=== PATIENT | male | born 1950 | race Caucasian/White ===

== ENCOUNTER 2016-09-17 04:21 | Emergency (ER) | payer OTHER ==
[2016-09-17 04:28] VITALS: RESP 18
[2016-09-17 04:49] LABS: Basophils % (A) 1 %; CH 27.7; CHCM 33.1; Eosinophils # (A) 0.3 k/uL (0-0.7); Eosinophils % (A) 4 %; HCT 45.6 % (39.0-53.0); HDW 2.48; HGB 14.8 gm/dL (13.0-17.5); Luc % (Auto) 1; Lymphocytes # (A) 1.4 k/uL (1.0-4.8); Lymphocytes % (A) 19 %; MCH 27.3 pg (25.0-35.0); MCHC 32.4 g/dL (31.0-37.0); MCV 84.2 fL (80.0-100.0); Mean Platelet Volume 6.6; Monocytes # (A) 0.5 k/uL (0-1.0); Monocytes % (A) 7 %; Neutrophils # (A) 5.3 k/uL (1.3-7.7); Neutrophils % (A) 69 %; RBC 5.41 m/uL (4.30-5.90); RDW 13.4 % (11.5-15.5); WBC 7.7 k/uL (3.8-10.6); WBC (Perox) 7.42
--- NOTE | 2016-09-17 04:51 | ED ---
Chest Pain HPI - General Chief Complaint: Chest Pain Stated Complaint: Anxiety Time Seen by Provider: 09/17/16 04:27 Source: EMS Mode of arrival: EMS Limitations: no limitations - History of Present Illness Initial Comments: This patient is a 66-year-old man who presents to be evaluated mainly for hypertension. The patient states that he had been sleeping tonight and woke with a feeling like he was short of breath and having palpitations. There was also a tight feeling across his chest. The patient states that after he had been up for a while the symptoms were improving but he noted that his blood pressure was elevated and he was anxious about that. He states that he has a history of a "brain bleed," and that he was told that if his blood pressure was elevated he should be seen in the emergency department. When the pressure did not come down he decided to be seen here. Complaint: chest pain Onset/Timin -: hour(s) Onset: awoke with symptoms Pain Location: substernal Pain Radiation: none Severity: mild Quality: tightness Consistency: constant Improves With: nothing Worsens With: nothing Other Symptoms: palpitations Treatments Prior to Arrival: none - Related Data Allergies Allergy/AdvReac Type Severity Reaction Status Date / Time No Known Allergies Allergy Verified 09/17/16 05:00 Review of Systems ROS Statement: Those systems with pertinent positive or pertinent negative responses have been documented in the HPI. ROS Other: All systems not noted in ROS Statement are negative. Constitutional: Denies: fever Respiratory: Reports: dyspnea. Denies: cough, hemoptysis Cardiovascular: Reports: chest pain, palpitations. 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 Absent: scleral icterus, conjunctival injection Neck exam: Present: normal inspection Respiratory exam: Present: normal lung sounds bilaterally. Absent: respiratory distress, wheezes, rales, rhonchi, stridor Cardiovascular Exam: Present: regular rate, normal rhythm, normal heart sounds. Absent: systolic murmur, diastolic murmur, rubs, gallop GI/Abdominal exam: Present: soft. Absent: distended, tenderness, guarding, rebound, mass Extremities exam: Present: normal inspection, normal capillary refill. Absent: pedal edema, calf tenderness Back exam: Present: normal inspection. Absent: CVA tenderness (R), CVA tenderness (L) Neurological exam: Present: alert Psychiatric exam: Present: anxious Skin exam: Present: warm, dry, intact, normal color. Absent: rash Course Vital Signs 09/17/16 09/17/16 09/17/16 04:23 05:00 05:30 Temperature 97.7 F Pulse Rate 79 82 74 Respiratory 18 18 18 Rate Blood Pressure 162/93 151/78 129/76 O2 Sat by Pulse 97 96 96 Oximetry 09/17/16 06:00 Temperature Pulse Rate 77 Respiratory 18 Rate Blood Pressure 119/70 O2 Sat by Pulse 96 Oximetry Chest Pain MDM - MDM The patient's clinical presentation was consistent with episode of sleep apnea. He states he has had previous sleep study and was given prescription to have a CPAP machine but has not purchased this yet. I did encourage patient to follow through with this. The patient's symptoms have resolved and he would like to go home. I did offer admission for further cardiac monitoring and repeat enzymes with the patient declines this, understand there is a small risk of missed MS. Should any of the symptoms recur the patient will return, other return parameters discussed. He will follow with his physician, calling this morning for appointment. Disposition Clinical Impression: Anxiety, Hypertension Disposition: HOME SELF-CARE Condition: Good Instructions: Chest Pain (ED), Hypertension (ED) Referrals: Fady Lemus DO [Primary Care Provider] - 1-2 days
[2016-09-17] MEDS ORDERED: LABETALOL 5 MG/ML VIAL MDV IVP STA (04:54)
[2016-09-17 04:58] LABS: Partial Thromboplastin Time 25.7 sec (22.0-30.0); Prothrombin Time 10.5 sec (9.0-12.0)
[2016-09-17 05:04] LABS: ALT 68 U/L (21-72); AST 38 U/L (17-59); Alkaline Phosphatase 151 U/L (38-126); Anion Gap 10 mmol/L; Blood Urea Nitrogen 22 mg/dL (9-20); Calcium 8.9 mg/dL (8.4-10.2); Carbon Dioxide 22 mmol/L (22-30); Chloride 109 mmol/L (98-107); Glucose 118 mg/dL (74-99); Non-African American GFR(MDRD) >60 (>60 ml/min/1.73 sqM); Potassium 4.2 mmol/L (3.5-5.1); Sodium 141 mmol/L (137-145); Total Bilirubin 0.6 mg/dL (0.2-1.3); Total Protein 7.1 g/dL (6.3-8.2)
--- NOTE | 2016-09-17 05:12 | XR ---
EXAM: XR Chest, 2 Views CLINICAL HISTORY: Reason: Chest Pain TECHNIQUE: Frontal and lateral views of the chest. COMPARISON: No relevant prior studies available. FINDINGS: Lungs: Low lung volumes. Suspect atelectasis. No edema or consolidation. Pleural space: Unremarkable. No pneumothorax. Cardiac and mediastinal silhouette accentuated by low lung volumes. Likely within normal limits allowing for poor inspiratory depth. IMPRESSION: Low lung volumes with suspected atelectasis.
[2016-09-17 05:14] LABS: Creatine Kinase 87 U/L (55-170)
[2016-09-17 05:27] LABS: Creatine Kinase MB 1.4 ng/mL (0.0-2.4); Troponin I <0.012 ng/mL (0.000-0.034)
[2016-09-17 06:01] VITALS: BP 119/70; PULSE 77
[2016-09-17 06:18] VITALS: TEMP 98.2
== END 2016-09-17 06:18 | disposition home or self-care (01) ==
LOC: EC 04:21
DX: I10 Essential (primary) hypertension (principal); F41.9 Anxiety disorder, unspecified; R07.9 Chest pain, unspecified
CPT/HCPCS: 36415; 71020; 80053; 82550; 82553; 83735; 83880; 84484; 85025; 85610; 85730; 93005; 96374; 99285

== ENCOUNTER 2020-01-09 17:32 | Inpatient (IN) | payer MEDICARE, OTHER ==
--- NOTE | 2020-01-09 18:12 | ED ---
General Adult HPI - General Chief complaint: Fever Stated complaint: fever,chills,sob,weak Time Seen by Provider: 01/09/20 17:51 Source: patient Mode of arrival: ambulatory Limitations: no limitations - History of Present Illness Initial comments: Dictation was produced using [employer] dictation software. please excuse any grammatical, word or spelling errors. This patient was cared for during a federal and state declared state of emergency secondary to Covid 19 Chief Complaint: 69-year-old male with past medical history of stroke and pneumothorax presents with sore throat, fever and dyspnea. History of Present Illness: Patient is a 69-year-old male. He states for the last 3 days he's been having worsening shortness of breath, fever and sore throat. Patient went to the urgent care today and was redirected to the emergency department. He was told to come here because he apparently was hypoxic. Patient states that he perhaps was exposed to be with coronavirus at one of his friends businesses. He is been around a handful of people that have not been wearing masks. Patient has a history of asthma or COPD. He is not a c urrent smoker. He sometimes cough. States his cough is nonproductive. Still has the ability to taste food and smell. The ROS documented in this emergency department record has been reviewed and c onfirmed by me. Those systems with pertinent positive or negative responses have been documented in the HPI. All other systems are other negative and/or noncontributory. PHYSICAL EXAM: General Impression: Alert and oriented x3, not in acute distress HEENT: Normocephalic atraumatic, extra-ocular movements intact, pupils equal and reactive to light bilaterally, mucous membranes moist, no erythema to the posterior oropharynx, no tonsillar lesions Cardiovascular: Heart regular rate and rhythm Chest: Able to complete full sentences, no retractions, no tachypnea, lungs clear to auscultation bilaterally Abdomen: abdomen soft, non-tender, non-distended, no organomegaly Musculoskeletal: Pulses present and equal in all extremities, no peripheral edema Motor: no focal deficits noted Neurological: CN II-XII grossly intact, no focal motor or sensory deficits noted Skin: Intact with no visualized rashes Psych: Normal affect and mood ED course: 69-year-old male presents with sore throat, constitutional symptoms and dyspnea signs upon arrival shows temperature 100.4, rest of vital signs within acceptable limits. Patient does not appear to be any respiratory distress at the moment. Patient is not tachycardic nor hypoxic. He does have a low-grade temperature. Seems to have symptoms that would suggest pulmonary or upper respiratory infection. No leukocytosis. Coag panel is unremarkable. Metabolic panel is otherwise unremarkable. No elevated renal markers. Troponin is elevated 0.189. Group A strep is negative. Chest x-ray is nonacute. Highly doubt that patient's symptomatology suggest pulmonary embolus. He is not tachycardic and not hypoxic. He does not have pleuritic chest symptoms. Short of breath and has elevated troponin. CT angios the chest is ordered.CT angios the chest was obtained given that patient has elevated troponin, and respiratory symptoms. His concern for pulmonary embolus. CT angioma shows density within the mediastinum and its indeterminate concerning for mediastinitis, aortitis or vasculitis. Infectious disease will be consulted given the concerning finding seen on CT angios the chest. Patient started on broad spectrum antibiotics. EKG interpretation: Ventricular rate 86, normal sinus rhythm, IN interval 200, QRS 94, QTC 445. No IN prolongation, no QTC prolongation, no ST or T-wave changes noted. Overall, this EKG is unremarkable - Related Data Home Medications Medication Instructions Recorded Confirmed Atorvastatin [Lipitor] 40 mg PO HS 01/09/20 01/09/20 FLUoxetine HCL [PROzac] 40 mg PO DAILY 01/09/20 01/09/20 Gabapentin [Neurontin] 400 mg PO TID 01/09/20 01/09/20 clonazePAM [KlonoPIN] 1 mg PO BID 01/09/20 01/09/20 hydrOXYzine pamoate [Vistaril] 50 mg PO TID 01/09/20 01/09/20 lisinopriL [Zestril] 5 mg PO DAILY 01/09/20 01/09/20 Allergies Allergy/AdvReac Type Severity Reaction Status Date / Time No Known Allergies Allergy Verified 01/09/20 20:03 Review of Systems ROS Statement: Those systems with pertinent positive or pertinent negative responses have been documented in the HPI. ROS Other: All systems not noted in ROS Statement are negative. 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 History of Any Multi-Drug Resistant Organisms: None Reported Additional Past Surgical History / Comment(s): ACL replacement Past Psychological History: Anxiety, Depression Smoking Status: Never smoker Past Alcohol Use History: None Reported Past Drug Use History: None Reported General Exam Limitations: no limitations Course Vital Signs 01/09/20 01/09/20 17:53 18:22 Temperature 100.4 F H Pulse Rate 97 90 Respiratory 16 16 Rate Blood Pressure 137/79 119/73 O2 Sat by Pulse 97 95 Oximetry Medical Decision Making - Lab Data Result diagrams: 01/09/20 18:08 01/09/20 18:08 Lab Results 01/09/20 01/09/20 01/09/20 Range/Units 18:08 18:08 18:08 WBC 4.5 (3.8-10.6) k/uL RBC 3.98 L (4.30-5.90) m/uL Hgb 12.0 L (13.0-17.5) gm/dL Hct 36.9 L (39.0-53.0) % MCV 92.7 (80.0-100.0) fL MCH 30.2 (25.0-35.0) pg MCHC 32.5 (31.0-37.0) g/dL RDW 13.7 (11.5-15.5) % Plt Count 234 (150-450) k/uL Neutrophils % (Manual) 53 % Lymphocytes % (Manual) 41 % Monocytes % (Manual) 6 % Neutrophils # (Manual) 2.39 (1.3-7.7) k/uL Lymphocytes # (Manual) 1.85 (1.0-4.8) k/uL Monocytes # (Manual) 0.27 (0-1.0) k/uL Nucleated RBCs 0 (0-0) /100 WBC Manual Slide Review Performed RBC Morphology Normal PT 10.4 (9.0-12.0) sec INR 1.0 (<1.2) APTT 28.5 (22.0-30.0) sec Sodium 135 L (137-145) mmol/L Potassium 4.3 (3.5-5.1) mmol/L Chloride 102 (98-107) mmol/L Carbon Dioxide 26 (22-30) mmol/L Anion Gap 7 mmol/L BUN 14 (9-20) mg/dL Creatinine 0.86 (0.66-1.25) mg/dL Est GFR (CKD-EPI)AfAm >90 (>60 ml/min/1.73 sqM) Est GFR (CKD-EPI)NonAf 90 (>60 ml/min/1.73 sqM) Glucose 104 H (74-99) mg/dL Plasma Lactic Acid [place] (0.7-2.0) mmol/L Calcium 8.7 (8.4-10.2) mg/dL Total Bilirubin 0.6 (0.2-1.3) mg/dL AST 25 (17-59) U/L ALT 23 (4-49) U/L Alkaline Phosphatase 108 (38-126) U/L Troponin I (0.000-0.034) ng/mL Total Protein 7.0 (6.3-8.2) g/dL Albumin 4.0 (3.5-5.0) g/dL Group A Strep Rapid (Negative) 01/09/20 01/09/20 01/09/20 Range/Units 18:08 18:08 18:44 WBC (3.8-10.6) k/uL RBC (4.30-5.90) m/uL Hgb (13.0-17.5) gm/dL Hct (39.0-53.0) % MCV (80.0-100.0) fL MCH (25.0-35.0) pg MCHC (31.0-37.0) g/dL RDW (11.5-15.5) % Plt Count (150-450) k/uL Neutrophils % (Manual) % Lymphocytes % (Manual) % Monocytes % (Manual) % Neutrophils # (Manual) (1.3-7.7) k/uL Lymphocytes # (Manual) (1.0-4.8) k/uL Monocytes # (Manual) (0-1.0) k/uL Nucleated RBCs (0-0) /100 WBC Manual Slide Review RBC Morphology PT (9.0-12.0) sec INR (<1.2) APTT (22.0-30.0) sec Sodium (137-145) mmol/L Potassium (3.5-5.1) mmol/L Chloride (98-107) mmol/L Carbon Dioxide (22-30) mmol/L Anion Gap mmol/L BUN (9-20) mg/dL Creatinine (0.66-1.25) mg/dL Est GFR (CKD-EPI)AfAm (>60 ml/min/1.73 sqM) Est GFR (CKD-EPI)NonAf (>60 ml/min/1.73 sqM) Glucose (74-99) mg/dL Plasma Lactic Acid [place] 0.8 (0.7-2.0) mmol/L Calcium (8.4-10.2) mg/dL Total Bilirubin (0.2-1.3) mg/dL AST (17-59) U/L ALT (4-49) U/L Alkaline Phosphatase (38-126) U/L Troponin I 0.189 H* (0.000-0.034) ng/mL Total Protein (6.3-8.2) g/dL Albumin (3.5-5.0) g/dL Group A Strep Rapid Negative (Negative) Disposition Clinical Impression: Dyspnea Disposition: ADMITTED IP TO THIS HOSP Condition: Fair Referrals: Fady Lemus DO [Primary Care Provider] - 1-2 days Decision Time: 20:45
[2020-01-09 18:36] LABS: Potassium 4.3 mmol/L (3.5-5.1)
[2020-01-09 18:37] LABS: ALT 23 U/L (4-49); AST 25 U/L (17-59); African American GFR (CKD) >90 (>60 ml/min/1.73 sqM); Alkaline Phosphatase 108 U/L (38-126); Anion Gap 7 mmol/L; Blood Urea Nitrogen 14 mg/dL (9-20); Calcium 8.7 mg/dL (8.4-10.2); Carbon Dioxide 26 mmol/L (22-30); Chloride 102 mmol/L (98-107); Glucose 104 mg/dL (74-99); Non-African American GFR(CKD) 90 (>60 ml/min/1.73 sqM); Sodium 135 mmol/L (137-145); Total Bilirubin 0.6 mg/dL (0.2-1.3)
[2020-01-09 18:42] LABS: HCT 36.9 % (39.0-53.0); MCH 30.2 pg (25.0-35.0); MCHC 32.5 g/dL (31.0-37.0); MCV 92.7 fL (80.0-100.0); Mean Platelet Volume 6.4; Platelet Count 234 k/uL (150-450); RBC 3.98 m/uL (4.30-5.90); RDW 13.7 % (11.5-15.5); WBC 4.5 k/uL (3.8-10.6)
[2020-01-09 18:46] LABS: Partial Thromboplastin Time 28.5 sec (22.0-30.0); Prothrombin Time 10.4 sec (9.0-12.0)
--- NOTE | 2020-01-09 19:02 | XR ---
EXAMINATION TYPE: XR chest 2V DATE OF EXAM: 01/09/2020 COMPARISON: Prior chest x-ray 09/17/2016 HISTORY: Fever and difficulty breathing, shortness of breath TECHNIQUE: Frontal and lateral views of the chest are obtained. FINDINGS: There is no focal air space opacity, pleural effusion, or pneumothorax seen. The cardiac silhouette size is within normal limits. The patient is rotated. The osseous structures are intact. IMPRESSION: No acute cardiopulmonary process.
[2020-01-09 19:14] LABS: Lymphocytes # (M) 1.85 k/uL (1.0-4.8); Monocytes # (M) 0.27 k/uL (0-1.0); Neutrophils # (M) 2.39 k/uL (1.3-7.7); Neutrophils % (M) 53 %; Nucleated Red Blood Cells 0 /100 WBC (0-0); Total Cells Counted 100
[2020-01-09] MEDS ORDERED: ACETAMINOPHEN TAB 500 MG TAB PO STA (19:25)
[2020-01-09] MEDS ORDERED: ASPIRIN 81 MG PO STA (19:35)
--- NOTE | 2020-01-09 20:39 | CT ---
EXAMINATION TYPE: CT angio chest DATE OF EXAM: 01/09/2020 COMPARISON: Chest x-ray same day HISTORY: PE suspected. Pt c/o SOB, fever for several days. Hx HTN, stroke. CT DLP: 333.7 mGycm Automated exposure control for dose reduction was used. CONTRAST: CTA scan of the thorax is performed with IV Contrast, patient injected with 100 mL of Isovue 370, pul monary embolism protocol. MIP images are created and reviewed. 3D reconstructed images are created on an independent workstation and reviewed. FINDINGS: LUNGS: The lungs are grossly clear, there is no concerning parenchymal mass or nodule identified. T here is no pneumothorax seen. The tracheobronchial tree is patent. Minimal basilar atelectatic stanley es are present greater on the left, there may be minimal effusion AORTA: No additional significant abnormality is seen. MEDIASTINUM: There is satisfactory enhancement of the pulmonary artery and its branches, there is no CT evidence for pulmonary embolism centrally, some limitations to exclude embolus in the segmental br anches. There is some increased attenuation present within the mediastinal fat about the aorta. Proxi mal descending aorta is dilated to 3.2 cm. There are no greater than 1 cm hilar or mediastinal lymph nodes. No pericardial effusion is seen. Pulmonary artery is prominent, correlate for possible pulmo nary artery hypertension OTHER: No additional significant abnormality is seen. IMPRESSION: INCREASED DENSITY WITHIN THE MEDIASTINUM IS INDETERMINATE, CORRELATE FOR POSSIBLE MEDIASTINITIS, AOR TITIS, VASCULITIS . 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 NO EVIDENT PULMONARY EMBOLISM WITH LIMITATI ONS DESCRIBED. CONSIDER PULMONARY ARTERY HYPERTENSION. ADDITIONAL FINDINGS ABOVE.
[2020-01-09] MEDS ORDERED: AMPICILLIN-SULBACTAM 3 GM in SODIUM CHLORIDE 0.9% 100 ML IVPB STA (20:43)
[2020-01-09] MEDS ORDERED: VANCOMYCIN IV PER PHARMACY 1 EACH MISC MISCELLANE PRN (20:43)
[2020-01-09] MEDS ORDERED: VANCOMYCIN 1,500 MG in SODIUM CHLORIDE 0.9% 250 ML IVPB ONE (22:00)
[2020-01-10 04:11] LABS: Cholesterol 115 mg/dL (<200); HDL Cholesterol 39 mg/dL (40-60); LDL Cholesterol,Calculated 65 mg/dL (0-99); Triglycerides 54 mg/dL (<150)
[2020-01-10] MEDS: ASPIRIN 325 MG TAB PO SCH (08:33)
--- NOTE | 2020-01-10 10:07 | P.CRDCN ---
History of Present Illness Consult date: 01/10/20 Chief complaint: Chest pain History of present illness: This is a very pleasant 69-year-old gentleman with a past medical history significant for hypertension and dyslipidemia presented emergency department complaining of chest discomfort. He was in his usual state about 2 weeks ago he started experiencing discomfort in the chest. He described the discomfort as a burning sensation in the middle of the chest without radiation to the arms or neck or shoulders and without associated symptoms of shortness of breath or sweating or dizziness or lightheadedness or syncope. The discomfort is clearly not exertional related. Because of that he decided to come to the emergency department. Please note that the chest discomfort is very pleuritic in nature and worse once he take a deep breath. Because of that he underwent a computed tomography scan of the chest and that revealed what it seems to be mid last tinnitus and vasculitis but no evidence of pulmonary embolism noted. No PE was noted on the computed tomography scan of the chest. The chest x-ray did not show any acute abnormalities. The EKG showed sinus rhythm without any sign ificant ST or T-wave abnormalities. The troponin came in to be slightly abnormal but seems to be flat across support. Please note that the patient has been experiencing also symptoms of fever. He got tested for COVID-19 and the test distal pending at this point. At this point, would consider conservative medical approach. We will obtain an echocardiogram was Doppler. Also I would get a sed rate. 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 History of Any Multi-Drug Resistant Organisms: None Reported Additional Past Surgical History / Comment(s): ACL replacement Past Psychological History: Anxiety, Depression Smoking Status: Former smoker Past Alcohol Use History: None Reported Additional Past Alcohol Use History / Comment(s): smoked a pack a day for 25 years Past Drug Use History: None Reported Medications and Allergies Home Medications Medication Instructions Recorded Confirmed Type Atorvastatin [Lipitor] 40 mg PO HS 01/09/20 01/09/20 History FLUoxetine HCL [PROzac] 40 mg PO DAILY 01/09/20 01/09/20 History Gabapentin [Neurontin] 400 mg PO TID 01/09/20 01/09/20 History clonazePAM [KlonoPIN] 1 mg PO BID 01/09/20 01/09/20 History hydrOXYzine pamoate [Vistaril] 50 mg PO TID 01/09/20 01/09/20 History lisinopriL [Zestril] 5 mg PO DAILY 01/09/20 01/09/20 History Allergies Allergy/AdvReac Type Severity Reaction Status Date / Time No Known Allergies Allergy Verified 01/09/20 20:03 Physical Exam Vitals: Vital Signs Temp Pulse Pulse Resp BP BP Pulse Ox 01/10/20 08:00 99.2 F 77 16 121/70 94 L 01/10/20 04:00 97.8 F 63 16 106/63 96 01/09/20 23:56 97.8 F 57 L 16 110/66 95 01/09/20 20:54 99 F 01/09/20 20:53 99.1 F 70 17 116/58 95 01/09/20 18:22 90 16 119/73 95 01/09/20 17:53 100.4 F H 97 16 137/79 97 Intake and Output 01/09/20 01/10/20 01/10/20 22:59 06:59 14:59 Output Total 400 Balance -400 Output: Urine 400 Other: Voiding Method Toilet # Voids 1 1 Weight 78.925 kg 80 kg - Constitutional General appearance: no acute distress - Respiratory Respiratory: bilateral: CTA - Cardiovascular Rhythm: regular Heart sounds: normal: S1, S2 Results 01/09/20 18:08 01/09/20 18:08 Cardiac Enzymes 01/09/20 01/09/20 01/09/20 Range/Units 18:08 18:08 20:56 AST 25 (17-59) U/L Troponin I 0.189 H* 0.170 H* (0.000-0.034) ng/mL 01/10/20 Range/Units 00:36 AST (17-59) U/L Troponin I 0.109 H* (0.000-0.034) ng/mL Coagulation 01/09/20 Range/Units 18:08 PT 10.4 (9.0-12.0) sec APTT 28.5 (22.0-30.0) sec Lipids 01/10/20 Range/Units 00:36 Triglycerides 54 (<150) mg/dL Cholesterol 115 (<200) mg/dL HDL Cholesterol 39 L (40-60) mg/dL CBC 01/09/20 Range/Units 18:08 WBC 4.5 (3.8-10.6) k/uL RBC 3.98 L (4.30-5.90) m/uL Hgb 12.0 L (13.0-17.5) gm/dL Hct 36.9 L (39.0-53.0) % Plt Count 234 (150-450) k/uL Comprehensive Metabolic Panel 01/09/20 Range/Units 18:08 Sodium 135 L (137-145) mmol/L Potassium 4.3 (3.5-5.1) mmol/L Chloride 102 (98-107) mmol/L Carbon Dioxide 26 (22-30) mmol/L BUN 14 (9-20) mg/dL Creatinine 0.86 (0.66-1.25) mg/dL Glucose 104 H (74-99) mg/dL Calcium 8.7 (8.4-10.2) mg/dL AST 25 (17-59) U/L ALT 23 (4-49) U/L Alkaline Phosphatase 108 (38-126) U/L Total Protein 7.0 (6.3-8.2) g/dL Albumin 4.0 (3.5-5.0) g/dL Current Medications Generic Name Dose Route Start Last Admin Trade Name Freq PRN Reason Stop Dose Admin Aspirin 325 mg 01/10/20 09:00 01/10/20 08:33 Aspirin 325 Mg Tab PO 325 mg DAILY RAMEZ Administration Vancomycin HCl 1,500 mg/ 250 mls @ 125 mls/hr 01/10/20 12:00 Sodium Chloride IVPB Q12H RAMEZ Intake and Output 01/09/20 01/10/20 01/10/20 22:59 06:59 14:59 Output Total 400 Balance -400 Output: Urine 400 Other: Voiding Method Toilet # Voids 1 1 Weight 78.925 kg 80 kg 01/09/20 18:08 01/09/20 18:08 Assessment and Plan Assessment: Assessment #1 atypical/pleuritic chest discomfort #2 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
[2020-01-10] MEDS ORDERED: VANCOMYCIN IV PER PHARMACY 1 EACH MISC MISCELLANE PRN (10:56)
--- NOTE | 2020-01-10 11:06 | P.HPIM ---
History of Present Illness 59-year-old pleasant male came in with the complaints of for fever chills sore throat body aches going on for about last 3 days. Patient was also complaining of some cough without any significant sputum production. Patient was also complaining of chest pain which appears to be pleuritic and I did have mildly elevated cardiac enzymes because of which radiologist was consulted. Cardiology evaluated the patient and patient chest pain is noncardiac in nature. 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 Patient was given broad-spectrum antibiotics subsequently admitted with consistent infectious disease and cardiology. Review of Systems REVIEW OF SYSTEMS: CONSTITUTIONAL: as mentioned in HPI HEENT: No recent visual problems or hearing problems. Denied any sore throat. CARDIOVASCULAR: No orthopnea, PND, no palpitations, no syncope. PULMONARY: No shortness of breath, no cough, no hemoptysis. GASTROINTESTINAL: No diarrhea, no nausea, no vomiting, no abdominal pain. NEUROLOGICAL: No headaches, no weakness, no numbness. HEMATOLOGICAL: Denies any bleeding or petechiae. GENITOURINARY: Denies any burning micturition, frequency, or urgency. MUSCULOSKELETAL/RHEUMATOLOGICAL: Denies any joint pain, swelling, or any muscle pain. ENDOCRINE: Denies any polyuria or polydipsia. The rest of the 14-point review of systems is negative. 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 History of Any Multi-Drug Resistant Organisms: None Reported Additional Past Surgical History / Comment(s): ACL replacement Past Psychological History: Anxiety, Depression Smoking Status: Former smoker Past Alcohol Use History: None Reported Additional Past Alcohol Use History / Comment(s): smoked a pack a day for 25 years Past Drug Use History: None Reported Medications and Allergies Home Medications Medication Instructions Recorded Confirmed Type Atorvastatin [Lipitor] 40 mg PO HS 01/09/20 01/09/20 History FLUoxetine HCL [PROzac] 40 mg PO DAILY 01/09/20 01/09/20 History Gabapentin [Neurontin] 400 mg PO TID 01/09/20 01/09/20 History clonazePAM [KlonoPIN] 1 mg PO BID 01/09/20 01/09/20 History hydrOXYzine pamoate [Vistaril] 50 mg PO TID 01/09/20 01/09/20 History lisinopriL [Zestril] 5 mg PO DAILY 01/09/20 01/09/20 History Allergies Allergy/AdvReac Type Severity Reaction Status Date / Time No Known Allergies Allergy Verified 01/09/20 20:03 Physical Exam Vitals: Vital Signs Temp Pulse Pulse Resp BP BP Pulse Ox 01/10/20 08:00 99.2 F 77 16 121/70 94 L 01/10/20 04:00 97.8 F 63 16 106/63 96 01/09/20 23:56 97.8 F 57 L 16 110/66 95 01/09/20 20:54 99 F 01/09/20 20:53 99.1 F 70 17 116/58 95 01/09/20 18:22 90 16 119/73 95 01/09/20 17:53 100.4 F H 97 16 137/79 97 Intake and Output 01/09/20 01/10/20 01/10/20 22:59 06:59 14:59 Output Total 400 Balance -400 Output: Urine 400 Other: Voiding Method Toilet # Voids 1 1 Weight 78.925 kg 80 kg PHYSICAL EXAMINATION: GENERAL: The patient is alert and oriented x3, not in any acute distress. Well developed, well nourished. HEENT: Pupils are round and equally reacting to light. EOMI. No scleral icterus. No conjunctival pallor. Normocephalic, atraumatic. No pharyngeal erythema. No thyromegaly. CARDIOVASCULAR: S1 and S2 present. No murmurs, rubs, or gallops. PULMONARY: Chest is clear to auscultation, no wheezing or crackles. ABDOMEN: Soft, nontender, nondistended, normoactive bowel sounds. No palpable organomegaly. MUSCULOSKELETAL: No joint swelling or deformity. EXTREMITIES: No cyanosis, clubbing, or pedal edema. NEUROLOGICAL: Gross neurological examination did not reveal any focal deficits. SKIN: No rashes. Note: Because of COVID 19 isolation, some of the history and physical exam findings or indirect and obtained from nursing staff, and other physician examinations to avoid unnecessary contact with the patient. Results CBC & Chem 7: 01/09/20 18:08 01/09/20 18:08 Labs: Abnormal Lab Results - Last 24 Hours (Table) 01/09/20 01/09/20 01/09/20 Range/Units 18:08 18:08 18:08 RBC 3.98 L (4.30-5.90) m/uL Hgb 12.0 L (13.0-17.5) gm/dL Hct 36.9 L (39.0-53.0) % Sodium 135 L (137-145) mmol/L Glucose 104 H (74-99) mg/dL Troponin I 0.189 H* (0.000-0.034) ng/mL HDL Cholesterol (40-60) mg/dL 01/09/20 01/10/20 01/10/20 Range/Units 20:56 00:36 00:36 RBC (4.30-5.90) m/uL Hgb (13.0-17.5) gm/dL Hct (39.0-53.0) % Sodium (137-145) mmol/L Glucose (74-99) mg/dL Troponin I 0.170 H* 0.109 H* (0.000-0.034) ng/mL HDL Cholesterol 39 L (40-60) mg/dL Microbiology - Last 24 Hours (Table) 01/09/20 18:44 Group A Strep Throat Culture - Preliminary Throat Thrombosis Risk Factor Assmnt - Choose All That Apply Any of the Below Risk Factors Present?: No Other Risk Factors: Yes Each Risk Factor Represents 2 Points: Age 61-74 years Other congenital or acquired thrombophilia - If yes, enter type in comment: No Thrombosis Risk Factor Assessment Total Risk Factor Score: 2 Thrombosis Risk Factor Assessment Level: Low Risk Assessment and Plan Plan: -sepsis: Patient had Aortitis and mediastinitis on the CAT scan can be related to COVID 19, infectious disease was consulted. I'll consult pulmonary as well causing these findings.until we get the coronavirus testing patient will be started and continued on broad-spectrum antibiotics consisting be gastritis. Infectious disease is consulted as well.I'm obtaining LDH, d-dimer and progre ssed on level as a part of workup for coronavirus -Elevated troponins: Probably related to sepsis and he I'll evaluate the patient echobeing obtained -pleuritic chest pain: Probably secondary to mediastinitis, can be Calhoun's Colazal -Hypertension -Dyslipidemia -DVT prophylaxis Lovenox GI prophylaxis Pepcid
[2020-01-10 12:34] LABS: C Reactive Protein 162.1 mg/L (<10.0)
[2020-01-10] MEDS: ENOXAPARIN 40 MG/0.4 ML SYRINGE SQ SCH (12:47)
[2020-01-10] MEDS: VANCOMYCIN 1,500 MG in SODIUM CHLORIDE 0.9% 250 ML IVPB SCH ×2 (13:22→23:17)
[2020-01-10] MEDS: hydrOXYzine pamoate 25 MG CAP PO SCH ×2 (16:48→21:37)
[2020-01-10] MEDS: GABAPENTIN 400 MG CAP PO SCH ×2 (16:49→21:39)
[2020-01-10] MEDS: clonazePAM 1 MG TAB PO PRN (16:51)
--- NOTE | 2020-01-10 18:24 | ECHOF ---
Referral Reason:abnormal trop MEASUREMENTS -------- HEIGHT: 167.6 cm WEIGHT: 79.8 kg BP: IVSd: 1.1 cm (0.6 - 1.1) LVIDd: 3.3 cm (3.9 - 5.3) LVPWd: 1.3 cm (0.6 - 1.1) EDV(Teich): 45 ml IVSs: 1.5 cm LVIDs: 1.7 cm LVPWs: 1.5 cm %IVS Thck: 41 % ESV(Teich): 9 ml EF(Teich): 80 % %FS: 48 % SV(Teich): 36 ml RVIDd: 2.4 cm (< 3.3) IVC: 17.22 mm LALs A4C: 5.1 cm LAAs A4C: 14.4 cm LAESV A-L A4C: 35 ml LAESV MOD A4C: 33 ml LALs A2C: 4.9 cm LAAs A2C: 12.5 cm LAESV A-L A2C: 27 ml LAESV MOD A2C: 27 ml LAESV(A-L): 32 ml LAESV Index (A-L): 16.62 ml/m Ao Diam: 2.8 cm (2.0 - 3.7) LA Diam: 3.7 cm (2.7 - 3.8) AV Cusp: 2.0 cm (1.5 - 2.6) EPSS: 0.6 cm MV E Marquez: 0.91 m/s MV DecT: 142 ms MV Dec Amador: 6.4 m/s MV A Marquez: 0.93 m/s MV E/A Ratio: 0.98 MV PHT: 41 ms AV Vmax: 0.85 m/s AV maxP.86 mmHg PV Vmax: 1.54 m/s PV maxP.49 mmHg OR Vmax: 1.92 m/s OR maxP.81 mmHg OR PHT: 320 ms OR DecT: 1102 ms OR Dec Amador: 1.7 m/s TR Vmax: 1.40 m/s TR maxP.80 mmHg RAP: 5.00 mmHg RVSP: 12.80 mmHg MV EF SLOPE: 104.86 mm/s (70 - 150) MV EXCURSION: 15.62 mm (> 18.000) FINDINGS -------- This was a technically good study. The left ventricular size is normal. There is mild concentric left ventricular hypertrophy. Overa ll left ventricular systolic function is normal with, an EF between 55 - 60 %. Normal LAP. Grade 1 Diastolic Dysfunction. The right ventricle is normal in size. The left atrial size is normal. Normal LA size by volume 22+/-6 ml/m2. The right atrial size is normal. Interatrial and interventricular septum intact. The aortic valve is trileaflet and appears structurally normal. The mitral valve is normal. No mitral regurgitation. The tricuspid valve appears structurally normal. Trace tricuspid regurgitation present. Right cassandra tricular systolic pressure is normal at < 35 mmHg. Trace/mild (physiologic) pulmonic regurgitation. The aortic root size is normal. Normal inferior vena cava with normal inspiratory collapse consistent with estimated right atrial pre ssure of 5 mmHg. There is no pericardial effusion. CONCLUSIONS -------- 1. The left ventricular size is normal. 2. There is mild concentric left ventricular hypertrophy. 3. Overall left ventricular systolic function is normal with, an EF between 55 - 60 %. 4. Normal LAP. Grade 1 Diastolic Dysfunction. 5. Trace tricuspid regurgitation present. 6. Trace/mild (physiologic) pulmonic regurgitation. 7. There is no pericardial effusion. MACHINE RECORDS UNITS SUPERVISOR: Makayla Mcneill RDCS
[2020-01-10 19:42] LABS: HCT 37.8 % (39.0-53.0); HGB 12.2 gm/dL (13.0-17.5); MCH 30.1 pg (25.0-35.0); MCHC 32.2 g/dL (31.0-37.0); MCV 93.6 fL (80.0-100.0); Mean Platelet Volume 6.6; Platelet Count 252 k/uL (150-450); RBC 4.04 m/uL (4.30-5.90); RDW 13.7 % (11.5-15.5); WBC 4.5 k/uL (3.8-10.6)
[2020-01-10 19:54] LABS: African American GFR (CKD) >90 (>60 ml/min/1.73 sqM); Anion Gap 6 mmol/L; Blood Urea Nitrogen 14 mg/dL (9-20); Calcium 8.8 mg/dL (8.4-10.2); Carbon Dioxide 29 mmol/L (22-30); Chloride 103 mmol/L (98-107); Glucose 118 mg/dL (74-99); Non-African American GFR(CKD) 89 (>60 ml/min/1.73 sqM); Potassium 4.8 mmol/L (3.5-5.1); Sodium 138 mmol/L (137-145)
--- NOTE | 2020-01-10 20:45 | CT ---
EXAMINATION TYPE: CT neck chest w con DATE OF EXAM: 01/10/2020 COMPARISON: CT chest 01/09/2020 HISTORY: neck abscess CT DLP: 849.3 mGycm Automated exposure control for dose reduction was used. CONTRAST: Performed with IV Contrast, patient injected with 100 mL of Isovue 300. Images were obtained from the level of the orbits to the diaphragm with IV contrast. Superior mediastinum appears intact. There is slight increased density in the mediastinal fat around the great vessels. Thoracic aorta is intact. Thyroid gland is intact. There is normal branching patte rn of the great vessels on the aortic arch. Subglottic trachea appears normal. Epiglottis appears nor mal. There is small left pleural effusion. There is some mild atelectasis at the left lung base. There is minimal atelectasis posterior right upper lobe. There are no hilar masses. Heart size is normal. Ther e is no pericardial effusion. Prevertebral soft tissues are intact. There is some enlargement of the tonsils on the right side more than the left. I see no discrete fluid collection. The parotid glands are symmetric. The submandibul ar salivary glands are symmetric. There is no significant cervical adenopathy. The adenoids appear no rmal. Cervical vertebra have normal alignment. There is degenerative disc space narrowing in the mid and lower cervical spine. IMPRESSION: Mild hypertrophy of the tonsils. No discrete fluid collection seen to suggest an abscess. Small left pleural effusion with bilateral pulmonary infiltrates and subsegmental atelectasis as above. I is slight increased density in the mediastinal fat similar to yesterday of uncertain significance. Mild mediastinitis is possible..
[2020-01-10] MEDS: FAMOTIDINE 20 MG TAB PO SCH (21:39)
[2020-01-10] MEDS: ACETAMINOPHEN TAB 325 MG TAB PO PRN (21:39)
[2020-01-10] MEDS: ATORVASTATIN 40 MG TAB PO SCH (21:39)
--- NOTE | 2020-01-10 22:58 | P.CONS ---
History of Present Illness - Reason for Consult Consult date: 01/10/20 Mediastinitis Requesting physician: Adriana Stauffer - Chief Complaint Chest pain and sore throat x 2 days - History of Present Illness Patient is a 69 year male presenting to the ER at [facility] yesterday for evaluation of sore throat up for chest pain is coming into more of a burning in nature and worse with taking a deep breath and intensity is about 5 out of 10 with associated shortness of breath. Denies having any cough or other URI symptoms denies high-grade fever or chills the patient went to the urgent care with the patient was noticed to be hypoxic subsequent the patient was advised to go to the [facility] ER, on arrival to the ER the patient did have low will refer 100.4 patient was not tachycardic and no hypoxemia patient did have a normal white count with no lymphopenia liver enzymes were normal, the patient had chest x-ray that was negative for acute pulmonary processes patient did have elevated d-dimer a CT angiogram of the chest was done which was negative for PE however did show increased density within the mediastinum with concern for possible mediastinitis versus aortitis or vasculitis patient did have blood cultures which are currently pending he was started on vancomycin infection disease was consulted for further management of antibiotic therapy Review of Systems Positive point has been mentioned in the HPI rest of the systems are negative 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 History of Any Multi-Drug Resistant Organisms: None Reported Additional Past Surgical History / Comment(s): ACL replacement Past Psychological History: Anxiety, Depression Smoking Status: Former smoker Past Alcohol Use History: None Reported Additional Past Alcohol Use History / Comment(s): smoked a pack a day for 25 years Past Drug Use History: None Reported Medications and Allergies Home Medications Medication Instructions Recorded Confirmed Type Atorvastatin [Lipitor] 40 mg PO HS 01/09/20 01/09/20 History FLUoxetine HCL [PROzac] 40 mg PO DAILY 01/09/20 01/09/20 History Gabapentin [Neurontin] 400 mg PO TID 01/09/20 01/09/20 History clonazePAM [KlonoPIN] 1 mg PO BID 01/09/20 01/09/20 History hydrOXYzine pamoate [Vistaril] 50 mg PO TID 01/09/20 01/09/20 History lisinopriL [Zestril] 5 mg PO DAILY 01/09/20 01/09/20 History Allergies Allergy/AdvReac Type Severity Reaction Status Date / Time No Known Allergies Allergy Verified 01/09/20 20:03 Physical Exam Vitals: Vital Signs Temp Pulse Pulse Resp BP BP Pulse Ox 01/10/20 08:00 99.2 F 77 16 121/70 94 L 01/10/20 04:00 97.8 F 63 16 106/63 96 01/09/20 23:56 97.8 F 57 L 16 110/66 95 01/09/20 20:54 99 F 01/09/20 20:53 99.1 F 70 17 116/58 95 01/09/20 18:22 90 16 119/73 95 01/09/20 17:53 100.4 F H 97 16 137/79 97 Intake and Output 01/09/20 01/10/20 01/10/20 22:59 06:59 14:59 Output Total 400 Balance -400 Output: Urine 400 Other: Voiding Method Toilet # Voids 1 1 Weight 78.925 kg 80 kg GENERAL DESCRIPTION: An elderly male lying in bed, no distress. No tachypnea or accessory muscle of respiration use. HEENT: Shows Pallor , no scleral icterus. Oral mucous membrane is dry. No pharyngeal erythema or thrush NECK: Trachea central, no thyromegaly. LUNGS: Unlabored breathing. Clear to auscultation anteriorly. No wheeze or crackle. HEART: S1, S2, regular rate and rhythm. No loud murmur ABDOMEN: Soft, no tenderness , guarding or rigidity, no organomegaly EXTREMITIES: No edema of feet. SKIN: No rash, no masses palpable. NEUROLOGICAL: The patient is awake, alert, oriented x3, mood and affect normal. Results CBC & Chem 7: 01/10/20 19:24 01/10/20 19:24 Labs: Abnormal Lab Results - Last 24 Hours (Table) 01/09/20 01/09/20 01/09/20 Range/Units 18:08 18:08 18:08 RBC 3.98 L (4.30-5.90) m/uL Hgb 12.0 L (13.0-17.5) gm/dL Hct 36.9 L (39.0-53.0) % Sodium 135 L (137-145) mmol/L Glucose 104 H (74-99) mg/dL Troponin I 0.189 H* (0.000-0.034) ng/mL HDL Cholesterol (40-60) mg/dL 01/09/20 01/10/20 01/10/20 Range/Units 20:56 00:36 00:36 RBC (4.30-5.90) m/uL Hgb (13.0-17.5) gm/dL Hct (39.0-53.0) % Sodium (137-145) mmol/L Glucose (74-99) mg/dL Troponin I 0.170 H* 0.109 H* (0.000-0.034) ng/mL HDL Cholesterol 39 L (40-60) mg/dL Microbiology - Last 24 Hours (Table) 01/09/20 18:44 Group A Strep Throat Culture - Preliminary Throat Assessment and Plan Assessment: 1- patient presented to the hospital with sore throat up her chest pain or shortness of breath in this patient who did have a low-grade fever 100.4 CT angiogram of the chest has been suspicious for medastinitis or aortitis , with concern for possible viral etiology or bacterial as currently with no evidence of any pneumonia on the CT of the chest and blood cultures are currently pending (1) Mediastinitis Current Visit: Yes Status: Acute Code(s): J98.51 - MEDIASTINITIS SNOMED Code(s): 726573633 Plan: 1-we will review the CT with the radiologist 2- await a CRP and Procalcitonin as well as blood cultures to finalize 3-Vancomycin pharmacy to dose target trough of 15 while watching his kidney function and Vanco trough closely We will follow on clinical condition and cultures to further adjust medication if needed Thank you for this consultation will follow this patient with you Time with Patient: Greater than 30
[2020-01-11 08:17] LABS: HCT 38.3 % (39.0-53.0); HGB 12.2 gm/dL (13.0-17.5); MCH 29.9 pg (25.0-35.0); MCHC 31.9 g/dL (31.0-37.0); MCV 93.9 fL (80.0-100.0); Platelet Count 241 k/uL (150-450); RBC 4.08 m/uL (4.30-5.90); RDW 13.8 % (11.5-15.5); WBC 4.8 k/uL (3.8-10.6)
[2020-01-11 08:34] LABS: African American GFR (CKD) >90 (>60 ml/min/1.73 sqM); Anion Gap 6 mmol/L; Blood Urea Nitrogen 14 mg/dL (9-20); Calcium 8.6 mg/dL (8.4-10.2); Carbon Dioxide 30 mmol/L (22-30); Chloride 103 mmol/L (98-107); Glucose 112 mg/dL (74-99); Non-African American GFR(CKD) 82 (>60 ml/min/1.73 sqM); Potassium 4.1 mmol/L (3.5-5.1); Sodium 139 mmol/L (137-145)
[2020-01-11] MEDS: FLUoxetine HCL 20 MG CAP PO SCH (09:08)
[2020-01-11] MEDS: FAMOTIDINE 20 MG TAB PO SCH ×2 (09:09→20:41)
[2020-01-11] MEDS: GABAPENTIN 400 MG CAP PO SCH ×3 (09:09→21:15)
[2020-01-11] MEDS: ENOXAPARIN 40 MG/0.4 ML SYRINGE SQ SCH (09:09)
[2020-01-11] MEDS: ASPIRIN 325 MG TAB PO SCH (09:09)
[2020-01-11] MEDS: COLCHICINE 0.6 MG EACH PO SCH ×2 (09:09→20:44)
[2020-01-11] MEDS: hydrOXYzine pamoate 25 MG CAP PO SCH ×3 (09:09→21:14)
--- NOTE | 2020-01-11 09:55 | P.GSCN ---
History of Present Illness Consult date: 01/11/20 Reason for Consult: Mediastinitis Requesting physician: Efraín Simon History of present illness: This is an active 69-year-old gentleman who follows on an outpatient basis with Dr. Fady Lemus. He has a previous medical history hypertension, hyperlipidemia, left internal carotid artery stenosis 50%, hemorrhagic stroke approximately 7-8 years ago, left-sided spontaneous pneumothorax several years ago, previous tobacco dependence, and only surgical history of left ACL repair. He presented to medical stress 2 days ago with three-day complaint of headache, sore throat, body aches, and chest pain with deep inspiration. At that time he had a temperature of 102.9F and was recommended to present to [facility] emergency room. In the emergency room his temperature was 100.4F, the rest of his vital signs were stable and he was oxygenating well on room air. White blood cell count 4.5, coronavirus/influenza a/influenza B/rapid strep all negative, pro-calcitonin 0.07, CRP 162.1, sed rate 60, lactic acid 0.8. Troponins were mildly elevated it 0.189. EKG demonstrated normal sinus rhythm with no acute ST changes. Chest x-ray demonstrated no acute cardiopulmonary process. CTA of the chest was completed and read by radiology as having increased density within the mediastinum, possible mediastinitis versus aortitis versus vasculitis. The patient was admitted for evaluation and treatment with consultation placed to cardiology, infectious disease, and pulmonology. The patient was initiated on IV vancomycin. Transthoracic echocardiogram was completed demonstrating normal left ventricular systolic function with EF 55- 60%, grade 1 diastolic dysfunction, normal ventricles with no significant valvular pathology. Neck and chest CT was also completed demonstrating mild hypertrophy of the tonsils, small left pleural effusion, atelectasis, and slight increased density in the mediastinal fat with uncertain significance, possible mediastinitis per radiology read. Due to these findings Dr. Garzon from cardiothoracic surgery was consulted for recommendations. Review of Systems Review of systems was completed and was negative except as noted. - Constitutional Reports as per HPI, Reports fatigue, Reports fever, Reports lethargy, Reports malaise - EENT Ears, nose, mouth and throat: Reports as per HPI, Reports headache, Reports mouth pain, Reports sore throat - Cardiovascular Reports as per HPI, Reports chest pain Past Medical History Past Medical History: CVA/TIA, Hyperlipidemia, Hypertension Additional Past Medical History / Comment(s): Left-sided spontaneous pneuomthorax; hemorrhagic stroke; left carotid stenosis 50% History of Any Multi-Drug Resistant Organisms: None Reported Additional Past Surgical History / Comment(s): ACL replacement Past Anesthesia/Blood Transfusion Reactions: No Reported Reaction Past Psychological History: Anxiety, Depression Smoking Status: Former smoker Past Alcohol Use History: None Reported Additional Past Alcohol Use History / Comment(s): smoked a pack a day for 25 years Past Drug Use History: None Reported - Past Family History Father Family Medical History: Unable to Obtain Additional Family Medical History / Comment(s): Unable to attain family medical history as patient was adopted Medications and Allergies Home Medications Medication Instructions Recorded Confirmed Type Atorvastatin [Lipitor] 40 mg PO HS 01/09/20 01/09/20 History FLUoxetine HCL [PROzac] 40 mg PO DAILY 01/09/20 01/09/20 History Gabapentin [Neurontin] 400 mg PO TID 01/09/20 01/09/20 History clonazePAM [KlonoPIN] 1 mg PO BID 01/09/20 01/09/20 History hydrOXYzine pamoate [Vistaril] 50 mg PO TID 01/09/20 01/09/20 History lisinopriL [Zestril] 5 mg PO DAILY 01/09/20 01/09/20 History Allergies Allergy/AdvReac Type Severity Reaction Status Date / Time No Known Allergies Allergy Verified 01/09/20 20:03 Surgical - Exam Vital Signs Temp Pulse Resp BP Pulse Ox 100.4 F H 97 16 137/79 97 01/09/20 17:53 01/09/20 17:53 01/09/20 17:53 01/09/20 17:53 01/09/20 17:53 - General well developed, well nourished, no distress, no pain - Eyes PERRL, normal ocular movement - ENT no hearing loss - Neck no masses, no bruits, trachea midline - Respiratory Lungs sounds clear but diminished bilaterally. Respirations even, nonlabored. Currently on room air with oxygen saturation 96%. No chest wall deformities. No clubbing or cyanosis present. - Cardiovascular S1, S2 present. Regular rate and rhythm, sinus rhythm on telemetry. Palpable peripheral pulses bilaterally. No edema present. No calf pain or tenderness noted. - Abdomen Abdomen: soft, non tender, bowel sounds - Genitourinary Deferred - Rectum Deferred - Integumentary no rash, no growths, no abnormal pigmentation - Neurologic normal coordination, normal sensation - Musculoskeletal normal gait, normal posture - Psychiatric oriented to time, oriented to person, oriented to place, speech is normal, memory intact Results - Labs 01/11/20 07:53 01/11/20 07:53 Abnormal Lab Results - Last 24 Hours (Table) 01/10/20 01/10/20 01/10/20 Range/Units 00:36 11:06 11:14 RBC (4.30-5.90) m/uL Hgb (13.0-17.5) gm/dL Hct (39.0-53.0) % ESR 60 H (0-15) mm/hr D-Dimer 0.73 H (<0.60) mg/L FEU Glucose (74-99) mg/dL C-Reactive Protein 162.1 H (<10.0) mg/L 01/10/20 01/10/20 01/11/20 Range/Units 19:24 19:24 07:53 RBC 4.04 L (4.30-5.90) m/uL Hgb 12.2 L (13.0-17.5) gm/dL Hct 37.8 L (39.0-53.0) % ESR (0-15) mm/hr D-Dimer (<0.60) mg/L FEU Glucose 118 H 112 H (74-99) mg/dL C-Reactive Protein (<10.0) mg/L 01/11/20 Range/Units 07:53 RBC 4.08 L (4.30-5.90) m/uL Hgb 12.2 L (13.0-17.5) gm/dL Hct 38.3 L (39.0-53.0) % ESR (0-15) mm/hr D-Dimer (<0.60) mg/L FEU Glucose (74-99) mg/dL C-Reactive Protein (<10.0) mg/L Microbiology - Last 24 Hours (Table) 01/09/20 18:44 Group A Strep Throat Culture - Final Throat 01/09/20 18:43 Blood Culture - Preliminary Blood No Growth after 24 hours Diabetes panel 01/10/20 01/11/20 Range/Units 19:24 07:53 Sodium 138 139 (137-145) mmol/L Potassium 4.8 4.1 (3.5-5.1) mmol/L Chloride 103 103 (98-107) mmol/L Carbon Dioxide 29 30 (22-30) mmol/L BUN 14 14 (9-20) mg/dL Creatinine 0.88 0.96 (0.66-1.25) mg/dL Glucose 118 H 112 H (74-99) mg/dL Calcium 8.8 8.6 (8.4-10.2) mg/dL Calcium panel 01/10/20 01/11/20 Range/Units 19:24 07:53 Calcium 8.8 8.6 (8.4-10.2) mg/dL Pituitary panel 01/10/20 01/11/20 Range/Units 19:24 07:53 Sodium 138 139 (137-145) mmol/L Potassium 4.8 4.1 (3.5-5.1) mmol/L Chloride 103 103 (98-107) mmol/L Carbon Dioxide 29 30 (22-30) mmol/L BUN 14 14 (9-20) mg/dL Creatinine 0.88 0.96 (0.66-1.25) mg/dL Glucose 118 H 112 H (74-99) mg/dL Calcium 8.8 8.6 (8.4-10.2) mg/dL Adrenal panel 01/10/20 01/11/20 Range/Units 19:24 07:53 Sodium 138 139 (137-145) mmol/L Potassium 4.8 4.1 (3.5-5.1) mmol/L Chloride 103 103 (98-107) mmol/L Carbon Dioxide 29 30 (22-30) mmol/L BUN 14 14 (9-20) mg/dL Creatinine 0.88 0.96 (0.66-1.25) mg/dL Glucose 118 H 112 H (74-99) mg/dL Calcium 8.8 8.6 (8.4-10.2) mg/dL - Imaging Chest x-ray: report reviewed, image reviewed CT scan - chest: report reviewed, image reviewed EKG: image reviewed Assessment and Plan Assessment: 1. Sore throat, body ache, headache, chest pain with deep inspiration, fever on admission 2. History of hypertension 3. History of hyperlipidemia 4. History of left internal carotid artery stenosis 50% 5. History of hemorrhagic stroke 6. History of left-sided spontaneous pneumothorax 7. Previous tobacco dependence 8. No surgical history in the chest area Plan: The patient was seen and examined at the bedside with Dr. Garzon. Chart/diagnostics were reviewed. The patient is in no active distress. We see no evidence of descending mediastinitis or obvious aortic thickness on CTs. We recommend initiation of colchicine, otherwise medical management of other comorbid conditions per primary care, infectious disease, cardiology. Thank you for this consult. Please call us with any further questions. Time with Patient: Greater than 30
--- NOTE | 2020-01-11 11:12 | P.PN ---
Subjective 59-year-old pleasant male came in with the complaints of for fever chills sore throat body aches going on for about last 3 days. Patient was also complaining of some cough without any significant sputum production. Patient was also complaining of chest pain which appears to be pleuritic and I did have mildly elevated cardiac enzymes because of which radiologist was consulted. Cardiology evaluated the patient and patient chest pain is noncardiac in nature. 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 Patient was given broad-spectrum antibiotics subsequently admitted with consistent infectious disease and cardiology. 01/11 2020 Patient was evaluated by multiple consultants, patient remains on broad antibiotics blood cultures are still pending. 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 Patient on broad- spectrum antibiotics for possible infectious vasculitis and mediastinitis awaiting blood cultures patient although feeling much better today no overnight events Constitutional: Denied any fatigue denied any fever. Cardio vascular: denied any chest pain, palpitations Gastrointestinal denied any nausea vomiting Pulmonary: Denied any shortness of breath cough Neurologic denied any new focal deficits All inpatient medications were reviewed and appropriate changes in these medications as dictated in the interval history and assessment and plan. Objective - Vital Signs Vital signs: Vital Signs Temp 98.2 F 01/11/20 03:29 Pulse 58 L 01/11/20 03:29 Resp 18 01/11/20 03:29 BP 112/66 01/11/20 03:29 Pulse Ox 96 01/11/20 03:29 Intake & Output 01/10/20 01/11/20 01/11/20 18:59 06:59 18:59 Intake Total 236 240 Balance 236 240 Weight 79.9 kg Intake: Oral 236 240 Other: Voiding Method Toilet # Voids 2 1 # Bowel Movements 0 - Exam PHYSICAL EXAMINATION: GENERAL: The patient is alert and oriented x3, not in any acute distress. Well developed, well nourished. HEENT: Pupils are round and equally reacting to light. EOMI. No scleral icterus. No conjunctival pallor. Normocephalic, atraumatic. No pharyngeal erythema. No thyromegaly. CARDIOVASCULAR: S1 and S2 present. No murmurs, rubs, or gallops. PULMONARY: Chest is clear to auscultation, no wheezing or crackles. ABDOMEN: Soft, nontender, nondistended, normoactive bowel sounds. No palpable organomegaly. MUSCULOSKELETAL: No joint swelling or deformity. EXTREMITIES: No cyanosis, clubbing, or pedal edema. NEUROLOGICAL: Gross neurological examination did not reveal any focal deficits. SKIN: No rashes. - Labs CBC & Chem 7: 01/11/20 07:53 01/11/20 07:53 Labs: Abnormal Lab Results - Last 24 Hours (Table) 01/10/20 01/10/20 01/10/20 Range/Units 00:36 11:06 11:14 RBC (4.30-5.90) m/uL Hgb (13.0-17.5) gm/dL Hct (39.0-53.0) % ESR 60 H (0-15) mm/hr D-Dimer 0.73 H (<0.60) mg/L FEU Glucose (74-99) mg/dL C-Reactive Protein 162.1 H (<10.0) mg/L 01/10/20 01/10/20 01/11/20 Range/Units 19:24 19:24 07:53 RBC 4.04 L (4.30-5.90) m/uL Hgb 12.2 L (13.0-17.5) gm/dL Hct 37.8 L (39.0-53.0) % ESR (0-15) mm/hr D-Dimer (<0.60) mg/L FEU Glucose 118 H 112 H (74-99) mg/dL C-Reactive Protein (<10.0) mg/L 01/11/20 Range/Units 07:53 RBC 4.08 L (4.30-5.90) m/uL Hgb 12.2 L (13.0-17.5) gm/dL Hct 38.3 L (39.0-53.0) % ESR (0-15) mm/hr D-Dimer (<0.60) mg/L FEU Glucose (74-99) mg/dL C-Reactive Protein (<10.0) mg/L Microbiology - Last 24 Hours (Table) 01/09/20 18:44 Group A Strep Throat Culture - Final Throat 01/09/20 18:43 Blood Culture - Preliminary Blood No Growth after 24 hours Assessment and Plan Plan: -sepsis: Patient had Aortitis and mediastinitis on the CAT, ruled out COVID 19, infectious disease was consulted. Patient is on colchicine for inflammatory vasculitis, and is on broad-spectrum antibiotics for infectious aortitis does appear to have some tonsillitis blood cultures are still pending . He and his screen is negative, group B strep was also negative for calcitonin is within normal limits. C-reactive protein is very high. D-dimer is normal for his age -Elevated troponins: Probably related to sepsis patient's echocardiogram did not show any significant abnormality -pleuritic chest pain: Probably secondary to mediastinitis. -Hypertension -Dyslipidemia -DVT prophylaxis Lovenox GI prophylaxis Pepcid
[2020-01-11] MEDS: VANCOMYCIN 1,500 MG in SODIUM CHLORIDE 0.9% 250 ML IVPB SCH ×2 (13:06→23:18)
--- NOTE | 2020-01-11 15:05 | P.PN ---
Subjective Progress Note Date: 01/11/20 This is a pleasant 69-year-old gentleman with history of hypertension, hyperlipidemia who presented to the hospital with symptoms of chest discomfort. Chest discomfort was very pleuritic in nature, worsened when the patient took a deep breath. Chest x-ray did not show any acute abnormalities, EKG showed normal sinus rhythm with no significant ST-T wave changes. Covid testing came back negative. Patient was experiencing fever chills and bodyaches at home prior to coming to the hospital as well. He had an echo cardiac gram with Doppler study performed which revealed a normal left ventricular systolic function. 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 Thoracic surgery consultation was requested. They did not feel that there was any evidence of descending mediastinitis or obvious aortic thickness on the CAT scan. The patient was seen and examined today, denied any chest discomfort in his breathing was overall stable. Let pressure 120/70 with a heart rate in the 60s, 96% on room air temperature 99.2. White blood cell count 4.8, hemoglobin 12.2, platelet count 241. Sodium 139, potassium 4.1, BUN 14, creatinine 0.9. Objective - Vital Signs Vital signs: Vital Signs Temp 99.2 F 01/11/20 12:00 Pulse 65 01/11/20 12:00 Resp 16 01/11/20 12:00 BP 120/70 01/11/20 12:00 Pulse Ox 96 01/11/20 12:00 Intake & Output 01/10/20 01/11/20 01/11/20 18:59 06:59 18:59 Intake Total 236 480 Balance 236 480 Weight 79.9 kg Intake: Oral 236 480 Other: Voiding Method Toilet Toilet # Voids 2 1 # Bowel Movements 0 - Exam GENERAL: The patient is alert and oriented x3, not in any acute distress. Well developed, well nourished. HEENT: Pupils are round and equally reacting to light. EOMI. No scleral icterus. No conjunctival pallor. Normocephalic, atraumatic. No pharyngeal erythema. No thyromegaly. CARDIOVASCULAR: S1 and S2 present. No murmurs, rubs, or gallops. PULMONARY: Chest is clear to auscultation, no wheezing or crackles. ABDOMEN: Soft, nontender, nondistended, normoactive bowel sounds. No palpable organomegaly. MUSCULOSKELETAL: No joint swelling or deformity. EXTREMITIES: No cyanosis, clubbing, or pedal edema. NEUROLOGICAL: Gross neurological examination did not reveal any focal deficits. SKIN: No rashes. - Labs CBC & Chem 7: 01/11/20 07:53 01/11/20 07:53 Labs: Abnormal Lab Results - Last 24 Hours (Table) 01/10/20 01/10/20 01/11/20 Range/Units 19:24 19:24 07:53 RBC 4.04 L (4.30-5.90) m/uL Hgb 12.2 L (13.0-17.5) gm/dL Hct 37.8 L (39.0-53.0) % Glucose 118 H 112 H (74-99) mg/dL 01/11/20 Range/Units 07:53 RBC 4.08 L (4.30-5.90) m/uL Hgb 12.2 L (13.0-17.5) gm/dL Hct 38.3 L (39.0-53.0) % Glucose (74-99) mg/dL Microbiology - Last 24 Hours (Table) 01/09/20 18:44 Group A Strep Throat Culture - Final Throat 01/09/20 18:43 Blood Culture - Preliminary Blood No Growth after 24 hours Assessment and Plan Plan: Assessment #1 atypical/pleuritic chest discomfort #2 abnormal computed tomography scan of the chest showing mediastinitis, cardiothoracic surgery did see the patient, feel that there is no evidence of descending mediastinitis or obvious aortic thickness. #3 mildly abnormal cardiac enzymes #4 hypertension #5 dyslipidemia #6 fever Plan Echocardiogram with Doppler study was performed which revealed a normal left ventricular systolic function. From cardiology's perspective, we will follow this patient with you now on an as-needed basis only, please don't hesitate to call with any questions. DNP note has been reviewed, I agree with a documented findings and plan of care. Patient was seen and examined.
--- NOTE | 2020-01-11 15:11 | P.CNPUL ---
History of Present Illness Consult date: 01/11/20 Requesting physician: Adriana Stauffer Reason for consult: chest pain, other Chief complaint: Pleuritic chest pain, fever, chills, sore throat History of present illness: 69-year-old white male patient of Dr. 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 Patient went to the urgent care clinic, he was noted to be hypoxic, and febrile, and was sent into the emergency department for further evaluation and treatment. Did have mild cough without any significant sputum pr oduction. Patient had mildly elevated cardiac enzymes, and the chest pain was determined to be noncardiac in nature by cardiology. Chest x-ray showed no acute cardiopulmonary process, d-dimer was 0.73, and CTA chest was obtained showing no evidence of pulmonary embolism, and it did show increased density within the mediastinum, which was indeterminate, with the possibility of mediastinitis, aortitis, vasculitis. There was aortic ectasia. Echocardiogram showed mild concentric LVH, preserved EF of 55-60%, no abnormality was noted in the valvular structure or function with only trace tricuspid regurgitation and PA pressure of less than 35 mmHg. Normal inferior vena cava with normal inspira tory collapse and estimated right atrial pressure of 5 mmHg, and no pericardial effusion. Patient denied any recent history of swallowing difficulty, no history of recent surgical procedures, no dental procedures. CT of the neck and chest with contrast was obtained showing mild hypertrophy of the tonsils, no discrete fluid collection to suggest an abscess, small left pleural effusion with bilateral pulmonary infiltrates and subsegmental atelectasis. There was slight increased density in the mediastinal fat similar to yesterday of uncertain significance. ANAs screen was negative, coronavirus, influenza group A strep were ruled out. CRP was elevated at 161.1, and sed rate was elevated at 60. Normal white count at 4.8, hemoglobin is 12.2, electrolytes and renal profile were unremarkable. ProBNP was 361, pro calcitonin was negative at 0.07. Patient was placed on empiric antibiotics, ID service is following, patient is currently on vancomycin. He was seen by multiple consultants including ID service, and CT surgery. The findings on the CT of the chest suggesting mediastinitis are nonspecific, patient is awake and alert, currently on room air, he is a bit diaphoretic, but febrile pattern has improved and his temp is down to 99.2F on today's evaluation. Review of Systems All systems: negative Constitutional: Denies chills, Denies fever Eyes: denies blurred vision, denies pain Ears, nose, mouth and throat: Reports sore throat, Denies headache Cardiovascular: Reports chest pain, Denies shortness of breath Respiratory: Reports dyspnea, Denies cough Gastrointestinal: Denies abdominal pain, Denies diarrhea, Denies nausea, Denies vomiting Musculoskeletal: Denies myalgias Integumentary: Denies pruritus, Denies rash Neurological: Denies numbness, Denies weakness Psychiatric: Denies anxiety, Denies depression Endocrine: Denies fatigue, Denies weight change Past Medical History Past Medical History: CVA/TIA, Hyperlipidemia, Hypertension Additional Past Medical History / Comment(s): Left-sided spontaneous pneuomthorax; hemorrhagic stroke; left carotid stenosis 50% History of Any Multi-Drug Resistant Organisms: None Reported Additional Past Surgical History / Comment(s): ACL replacement Past Anesthesia/Blood Transfusion Reactions: No Reported Reaction Past Psychological History: Anxiety, Depression Smoking Status: Former smoker Past Alcohol Use History: None Reported Additional Past Alcohol Use History / Comment(s): smoked a pack a day for 25 years Past Drug Use History: None Reported - Past Family History Father Family Medical History: Unable to Obtain Additional Family Medical History / Comment(s): Unable to attain family medical history as patient was adopted Medications and Allergies Home Medications Medication Instructions Recorded Confirmed Type Atorvastatin [Lipitor] 40 mg PO HS 01/09/20 01/09/20 History FLUoxetine HCL [PROzac] 40 mg PO DAILY 01/09/20 01/09/20 History Gabapentin [Neurontin] 400 mg PO TID 01/09/20 01/09/20 History clonazePAM [KlonoPIN] 1 mg PO BID 01/09/20 01/09/20 History hydrOXYzine pamoate [Vistaril] 50 mg PO TID 01/09/20 01/09/20 History lisinopriL [Zestril] 5 mg PO DAILY 01/09/20 01/09/20 History Allergies Allergy/AdvReac Type Severity Reaction Status Date / Time No Known Allergies Allergy Verified 01/09/20 20:03 Physical Exam Vitals: Vital Signs Temp Pulse Resp BP Pulse Ox 01/11/20 12:00 99.2 F 65 16 120/70 96 01/11/20 08:00 99 F 72 16 108/67 93 L 01/11/20 03:29 98.2 F 58 L 18 112/66 96 01/10/20 23:53 100.1 F H 72 18 110/62 94 L 01/10/20 20:00 101.4 F H 82 18 135/72 95 01/10/20 16:00 99.1 F 83 22 113/68 96 Intake and Output 01/10/20 01/11/20 01/11/20 22:59 06:59 14:59 Intake Total 480 Balance 480 Intake: Oral 480 Other: Voiding Method Toilet Toilet Toilet # Voids 1 # Bowel Movements 0 Weight 79.9 kg GENERAL EXAM: Alert, very pleasant, 69-year-old on room air, with a pulse ox of 96%, oriented 3, slightly diaphoretic, but no acute distress comfortable in no apparent distress. HEAD: Normocephalic/atraumatic. EYES: Normal reaction of pupils, equal size. Conjunctiva pink, sclera white. NOSE: Clear with pink turbinates. THROAT: No erythema or exudates. NECK: No masses, no JVD, no thyroid enlargement, no adenopathy. CHEST: No chest wall deformity. Symmetrical expansion. LUNGS: Equal air entry with no crackles, wheeze, rhonchi or dullness. CVS: Regular rate and rhythm, normal S1 and S2, no gallops, no murmurs, no rubs ABDOMEN: Soft, nontender. No hepatosplenomegaly, normal bowel sounds, no guarding or rigidity. EXTREMITIES: No clubbing, no edema, no cyanosis, 2+ pulses and upper and lower extremities. MUSCULOSKELETAL: Muscle strength and tone normal. SPINE: No scoliosis or deformity SKIN: No rashes CENTRAL NERVOUS SYSTEM: Alert and oriented -3. No focal deficits, tone is normal in all 4 extremities. PSYCHIATRIC: Alert and oriented -3. Appropriate affect. Intact judgment and insight. Results - Laboratory Findings CBC and BMP: 01/11/20 07:53 01/11/20 07:53 PT/INR, D-dimer PT 10.4 sec (9.0-12.0) 01/09/20 18:08 INR 1.0 (<1.2) 01/09/20 18:08 D-Dimer 0.73 mg/L FEU (<0.60) H 01/10/20 11:06 Abnormal lab findings: Abnormal Labs 01/09/20 01/09/20 01/09/20 18:08 18:08 18:08 RBC 3.98 L Hgb 12.0 L Hct 36.9 L ESR D-Dimer Sodium 135 L Glucose 104 H Troponin I 0.189 H* C-Reactive Protein HDL Cholesterol 01/09/20 01/10/20 01/10/20 20:56 00:36 00:36 RBC Hgb Hct ESR D-Dimer Sodium Glucose Troponin I 0.170 H* 0.109 H* C-Reactive Protein HDL Cholesterol 39 L 01/10/20 01/10/20 01/10/20 00:36 11:06 11:14 RBC Hgb Hct ESR 60 H D-Dimer 0.73 H Sodium Glucose Troponin I C-Reactive Protein 162.1 H HDL Cholesterol 01/10/20 01/10/20 01/11/20 19:24 19:24 07:53 RBC 4.04 L Hgb 12.2 L Hct 37.8 L ESR D-Dimer Sodium Glucose 118 H 112 H Troponin I C-Reactive Protein HDL Cholesterol 01/11/20 07:53 RBC 4.08 L Hgb 12.2 L Hct 38.3 L ESR D-Dimer Sodium Glucose Troponin I C-Reactive Protein HDL Cholesterol - Diagnostic Findings Chest x-ray: report reviewed, image reviewed CT scan - chest: report reviewed, image reviewed Assessment and Plan Plan: Assessment: #1. Febrile illness with CT chest findings of possible mediastinitis or aortitis, Coreg 19, influenza ruled out, rapid group B strep ruled out. Patient is on broad-spectrum antibiotics. CT of the neck and chest showed no evidence of abscess, it did show mild hypertrophy of the tonsils. CTA chest showed grossly clear lungs, no evidence of PE #2. Acute hypoxic respiratory failure, likely related to sepsis, no evidence PE on the CT chest. #3. Pleuritic chest pain, shortness of breath, fever #4. Elevated troponins, not related to acute myocardial ischemia, was evaluated by cardiology #5. Previous history of hemorrhagic CVA 6 years ago, recovered #6. Anxiety/depression Plan: Continue broad-spectrum antibiotics, blood cultures are pending, as discussed with CT surgery, ID service recommendations have been reviewed, CT chest and CT of the neck reviewed, findings of the CT chest are nonspecific, would continue with antibiotic treatment right now. No recent history of dental procedures, no evidence of abscess on the CT neck. COVID 19, influenza ruled out. No swallowing issues. Patient has no acute distress, and altered mentation, maintaining good O2 saturations on room air. Febrile pattern is improving. We will continue to follow I performed a history & physical examination of the patient and discussed their management with my nurse practitioner, Candy Brumfield. I reviewed the nurse practitioner's note and agree with the documented findings and plan of care. Lung sounds are positive for diminished breath sounds. The findings and the impression was discussed with the patient. I attest to the documentation by the nurse practitioner. Time with Patient: Greater than 30
--- NOTE | 2020-01-11 15:40 | PN ---
PROGRESS NOTE DATE OF SERVICE: 01/11/2020 REASON FOR FOLLOWUP: Fever, question of viral syndrome. INTERVAL HISTORY: Patient did spike a fever of 101.4 degrees Fahrenheit last night. The patient is afebrile this morning. Overall, the patient is feeling better. The patient's chest pain has improved. No nausea, no vomiting. No abdominal pain, no diarrhea. PHYSICAL EXAMINATION: Blood pressure 120/70 with a pulse of 65, temperature 98.2, he is 96% on room air. General description is an elderly male, up in the bed in no distress. RESPIRATORY SYSTEM: Unlabored breathing, clear to auscultation anteriorly. HEART: S1, S2. Regular rate and rhythm. ABDOMEN: Soft, no tenderness. LABS: Hemoglobin is 12.1, white count 4.9, BUN 14, creatinine 0.96. Bronch cultures pending. CRP was elevated to 162. DIAGNOSTIC IMPRESSION/PLAN: Patient admitted to the hospital with chest pain with abnormal CT suspicious for mild cystitis or aortitis. The patient has been evaluated by CT Surgery and has ruled out those diagnosis and while the patient was started on colchicine, patient with no white count or elevated procalcitonin, more likely pointing toward a viral syndrome. If the culture remains to be negative, antibiotic can be safely discontinued. MMODL / IJN: [id number] / JEFFRY
[2020-01-11] MEDS: clonazePAM 1 MG TAB PO PRN (20:41)
[2020-01-11] MEDS: ACETAMINOPHEN TAB 325 MG TAB PO PRN (20:41)
[2020-01-11] MEDS: ATORVASTATIN 40 MG TAB PO SCH (20:41)
[2020-01-12 08:36] LABS: Blast Cells # (M) 0.27 k/uL (0); Eosinophils # (M) 0.05 k/uL (0-0.7); Lymphocytes # (M) 1.49 k/uL (1.0-4.8); Metamyelocytes # (M) 0.05 k/uL (0); Metamyelocytes % 1 %; Monocytes # (M) 0.54 k/uL (0-1.0); Neutrophils # (M) 2.21 k/uL (1.3-7.7); Neutrophils % (M) 49 %; Nucleated Red Blood Cells 0 /100 WBC (0-0); Total Cells Counted 200
[2020-01-12] MEDS: ASPIRIN 325 MG TAB PO SCH (09:07)
[2020-01-12] MEDS: FLUoxetine HCL 20 MG CAP PO SCH (09:07)
[2020-01-12] MEDS: GABAPENTIN 400 MG CAP PO SCH ×3 (09:07→21:27)
[2020-01-12] MEDS: hydrOXYzine pamoate 25 MG CAP PO SCH ×3 (09:07→21:26)
[2020-01-12] MEDS: FAMOTIDINE 20 MG TAB PO SCH ×2 (09:07→21:26)
[2020-01-12] MEDS: ENOXAPARIN 40 MG/0.4 ML SYRINGE SQ SCH (09:08)
[2020-01-12] MEDS ORDERED: VANCOMYCIN TROUGH DUE 1 EACH MISC MISCELLANE ONE (11:00)
[2020-01-12 11:11] LABS: HCT 36.2 % (39.0-53.0); HGB 11.8 gm/dL (13.0-17.5); MCH 30.3 pg (25.0-35.0); MCHC 32.5 g/dL (31.0-37.0); MCV 93.4 fL (80.0-100.0); Mean Platelet Volume 6.9; Platelet Count 246 k/uL (150-450); RBC 3.87 m/uL (4.30-5.90); RDW 13.7 % (11.5-15.5); WBC 5.5 k/uL (3.8-10.6)
[2020-01-12 11:41] LABS: African American GFR (CKD) >90 (>60 ml/min/1.73 sqM); Anion Gap 5 mmol/L; Blood Urea Nitrogen 15 mg/dL (9-20); Calcium 8.4 mg/dL (8.4-10.2); Carbon Dioxide 26 mmol/L (22-30); Chloride 107 mmol/L (98-107); Glucose 126 mg/dL (74-99); Non-African American GFR(CKD) 89 (>60 ml/min/1.73 sqM); Potassium 4.2 mmol/L (3.5-5.1); Sodium 138 mmol/L (137-145)
[2020-01-12] MEDS: COLCHICINE 0.6 MG EACH PO SCH ×2 (12:30→21:26)
[2020-01-12] MEDS: VANCOMYCIN 1,500 MG in SODIUM CHLORIDE 0.9% 250 ML IVPB SCH (12:32)
--- NOTE | 2020-01-12 12:52 | P.PN ---
Subjective She reports 59-year-old pleasant male came in with the complaints of for fever chills sore throat body aches going on for about last 3 days. Patient was also complaining of some cough without any significant sputum production. Patient was also co mplaining of chest pain which appears to be pleuritic and I did have mildly elevated cardiac enzymes because of which radiologist was consulted. Cardiology evaluated the patient and patient chest pain is noncardiac in nature. 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 Patient was given broad-spectrum antibiotics subsequently admitted with consistent infectious disease and cardiology. 01/11 2020 Patient was evaluated by multiple consultants, patient remains on broad antibiotics blood cultures are still pending. 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 Patient on broad- spectrum antibiotics for possible infectious vasculitis and mediastinitis awaiting blood cultures patient although feeling much better today no overnight events Subjective 01/12/2020, this is a presented to the patient Patient is a pleasant 69 years old male with multiple medical problems presents because of chest pain found to have mediastinitis/aortitis with fever which is subsided for 48 hours now, he is currently on IV vancomycin. Also he had acute hypoxic respiratory failure secondary to sepsis which is improved now. Increased troponin is thought due to demand/supply mismatch. Several consult is for embolic to the patient including infection disease, pulmonary, cardiothoracic surgery. Pathology Technologist signed off. This morning patient is complaining only for mild chest pain that comes and go, no coughing or dyspnea. No other complaints. Objective - Vital Signs Vital signs: Vital Signs Temp 98.6 F 01/12/20 08:00 Pulse 72 01/12/20 12:00 Resp 16 01/12/20 12:00 BP 122/74 01/12/20 12:00 Pulse Ox 96 01/12/20 12:00 Intake & Output 01/11/20 01/12/20 01/12/20 18:59 06:59 18:59 Intake Total 720 236 Output Total 200 300 Balance 520 -300 236 Weight 78.8 kg Intake: Oral 720 236 Output: Urine 200 300 Other: Voiding Method Toilet Toilet Toilet # Voids 1 2 - Exam GENERAL: The patient is alert and oriented x3, not in any acute distress. Well developed, well nourished. HEENT: Pupils are round and equally reacting to light. EOMI. No scleral icterus. No conjunctival pallor. Normocephalic, atraumatic. No pharyngeal erythema. No thyromegaly. CARDIOVASCULAR: S1 and S2 present. No murmurs, rubs, or gallops. PULMONARY: Chest is clear to auscultation, no wheezing or crackles. ABDOMEN: Soft, nontender, nondistended, normoactive bowel sounds. No palpable organomegaly. MUSCULOSKELETAL: No joint swelling or deformity. EXTREMITIES: No cyanosis, clubbing, or pedal edema. NEUROLOGICAL: Gross neurological examination did not reveal any focal deficits. SKIN: No rashes. no petechiae. - Labs CBC & Chem 7: 01/12/20 10:49 01/12/20 10:49 Labs: Abnormal Lab Results - Last 24 Hours (Table) 01/10/20 01/12/20 01/12/20 Range/Units 19:24 10:49 10:49 RBC 4.04 L 3.87 L (4.30-5.90) m/uL Hgb 12.2 L 11.8 L (13.0-17.5) gm/dL Hct 37.8 L 36.2 L (39.0-53.0) % Blast Cells % 6 H* % Metamyelocytes # (Man) 0.05 H (0) k/uL Blast Cells # (Man) 0.27 H (0) k/uL Glucose 126 H (74-99) mg/dL Microbiology - Last 24 Hours (Table) 01/09/20 18:43 Blood Culture - Preliminary Blood No Growth after 48 hours 01/09/20 18:44 Group A Strep Throat Culture - Final Throat Assessment and Plan Assessment: -sepsis: Patient had Aortitis and mediastinitis on the CAT, ruled out COVID 19, infectious disease was consulted. Patient is on colchicine for inflammatory vasculitis, and is on broad-spectrum antibiotics for infectious aortitis does appear to have some tonsillitis blood cultures are still pending . He and his screen is negative, group B strep was also negative for calcitonin is within normal limits. C-reactive protein is very high. D-dimer is normal for his age -Elevated troponins: Probably related to sepsis patient's echocardiogram did not show any significant abnormality -pleuritic chest pain: Probably secondary to mediastinitis. -Hypertension -Dyslipidemia -DVT prophylaxis Lovenox GI prophylaxis Pepcid
--- NOTE | 2020-01-12 13:04 | P.PN ---
Subjective Progress Note Date: 01/12/20 Principal diagnosis: Pleuritic chest pain, fever chills, sore throat 69-year-old white male patient of Dr. 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 Patient went to the urgent care clinic, he was noted to be hypoxic, and febrile, and was sent into the emergency department for further evaluation and treatment. Did have mild cough without any significant sputum production. Patient had mildly elevated cardiac enzymes, and the chest pain was determined to be noncardiac in nature by cardiology. Chest x-ray showed no acute cardiopulmonary process, d-dimer was 0.73, and CTA chest was obtained showing no evidence of pulmonary embolism, and it did show increased density within the mediastinum, which was indeterminate, with the possibility of medias tinitis, aortitis, vasculitis. There was aortic ectasia. Echocardiogram showed mild concentric LVH, preserved EF of 55-60%, no abnormality was noted in the valvular structure or function with only trace tricuspid regurgitation and PA pressure of less than 35 mmHg. Normal inferior vena cava with normal inspiratory collapse and estimated right atrial pressure of 5 mmHg, and no pericardial effusion. Patient denied any recent history of swallowing difficulty, no history of recent surgical procedures, no dental procedures. CT of the neck and chest with contrast was obtained showing mild hypertrophy of the tonsils, no discrete fluid collection to suggest an abscess, small left pleural effusion with bilateral pulmonary infiltrates and subsegmental atelectasis. There was slight increased density in the mediastinal fat similar to yesterday of uncertain significance. ANAs screen was negative, coronavirus, influenza group A strep were ruled out. CRP was elevated at 161.1, and sed rate was elevated at 60. Normal white count at 4.8, hemoglobin is 12.2, electrolytes and renal profile were unremarkable. ProBNP was 361, pro calcitonin was negative at 0.07. Patient was placed on empiric antibiotics, ID service is following, patient is currently on vancomycin. He was seen by multiple consultants including ID service, and CT surgery. The findings on the CT of the chest suggesting mediastinitis are nonspecific, patient is awake and alert, currently on room air, he is a bit diaphoretic, but febrile pattern has improved and his temp is down to 99.2F on today's evaluation. On 01/12/2020 patient seen in follow-up on selective care unit, he states his fever broke, he is febrile pattern has improved although patient still had low- grade fevers in the last 24 hours, with a T-max of 99.5F, afebrile this morning. Remains on vancomycin for antibiotic coverage, denies any shortness of breath, no cough or congestion, did have one episode of midsternal chest pain last night, EKG did not show any acute ischemic changes, and the pain was likely pleuritic in nature. This morning patient's chest pain is improved, and comes and goes on and off. No altered mentation, his throat is still mildly sore, patient has no difficulty swallowing. He was started on colchicine by CT surgery, and overall his pleuritic chest pain has improved in intensity since admission. Today's labs have been reviewed, white blood cell count is 5.5, hemoglobin is 11.8, electrolytes and renal profile were within normal limits. Blood cultures have shown no growth, group A throat culture was negative Objective - Vital Signs Vital signs: Vital Signs Temp 98.6 F 01/12/20 08:00 Pulse 72 01/12/20 12:00 Resp 16 01/12/20 12:00 BP 122/74 01/12/20 12:00 Pulse Ox 96 01/12/20 12:00 Intake & Output 01/11/20 01/12/20 01/12/20 18:59 06:59 18:59 Intake Total 720 236 Output Total 200 300 Balance 520 -300 236 Weight 78.8 kg Intake: Oral 720 236 Output: Urine 200 300 Other: Voiding Method Toilet Toilet Toilet # Voids 1 2 - Exam GENERAL EXAM: Alert, very pleasant, 69-year-old on room air, with a pulse ox of 96%, oriented 3, no diaphoresis on today's exam, patient appears very comfortable, denies any chills or sweats but no acute distress comfortable in no apparent distress. HEAD: Normocephalic/atraumatic. EYES: Normal reaction of pupils, equal size. Conjunctiva pink, sclera white. NOSE: Clear with pink turbinates. THROAT: No erythema or exudates. NECK: No masses, no JVD, no thyroid enlargement, no adenopathy. CHEST: No chest wall deformity. Symmetrical expansion. LUNGS: Equal air entry with no crackles, wheeze, rhonchi or dullness. CVS: Regular rate and rhythm, normal S1 and S2, no gallops, no murmurs, no rubs ABDOMEN: Soft, nontender. No hepatosplenomegaly, normal bowel sounds, no guarding or rigidity. EXTREMITIES: No clubbing, no edema, no cyanosis, 2+ pulses and upper and lower extremities. MUSCULOSKELETAL: Muscle strength and tone normal. SPINE: No scoliosis or deformity SKIN: No rashes CENTRAL NERVOUS SYSTEM: Alert and oriented -3. No focal deficits, tone is normal in all 4 extremities. PSYCHIATRIC: Alert and oriented -3. Appropriate affect. Intact judgment and insight. - Labs CBC & Chem 7: 01/12/20 10:49 01/12/20 10:49 Labs: Abnormal Lab Results - Last 24 Hours (Table) 01/10/20 01/12/20 01/12/20 Range/Units 19:24 10:49 10:49 RBC 4.04 L 3.87 L (4.30-5.90) m/uL Hgb 12.2 L 11.8 L (13.0-17.5) gm/dL Hct 37.8 L 36.2 L (39.0-53.0) % Blast Cells % 6 H* % Metamyelocytes # (Man) 0.05 H (0) k/uL Blast Cells # (Man) 0.27 H (0) k/uL Glucose 126 H (74-99) mg/dL Microbiology - Last 24 Hours (Table) 01/09/20 18:43 Blood Culture - Preliminary Blood No Growth after 48 hours Assessment and Plan Plan: Assessment: #1. Febrile illness with CT chest findings of possible mediastinitis or aort itis, Coreg 19, influenza ruled out, rapid group B strep ruled out. Patient is on broad-spectrum antibiotics. CT of the neck and chest showed no evidence of abscess, it did show mild hypertrophy of the tonsils. CTA chest showed grossly clear lungs, no evidence of PE #2. Acute hypoxic respiratory failure, likely related to sepsis, no evidence PE on the CT chest. #3. Pleuritic chest pain, shortness of breath, fever #4. Elevated troponins, not related to acute myocardial ischemia, was evaluated by cardiology #5. Previous history of hemorrhagic CVA 6 years ago, recovered #6. Anxiety/depression Plan: Continue current antibiotics, febrile pattern has improved, pleuritic chest pain is improving in intensity, no sweats, no chills, no cough or shortness of breath, cultures remain negative thus far. We'll continue to follow. Will need to make sure the fever completely resolves before discharge home. We'll continue to monitor. I performed a history & physical examination of the patient and discussed their management with my nurse practitioner, Candy Brumfield. I reviewed the nurse practitioner's note and agree with the documented findings and plan of care. Lung sounds are positive for diminished breath sounds. The findings and the impression was discussed with the patient. I attest to the documentation by the nurse practitioner. Time with Patient: Less than 30
[2020-01-12] MEDS: ATORVASTATIN 40 MG TAB PO SCH (21:26)
--- NOTE | 2020-01-12 22:51 | PN ---
PROGRESS NOTE DATE OF SERVICE: 01/12/2020 REASON FOR FOLLOWUP: Fever and a question of mediastinitis. INTERVAL HISTORY: The patient is currently afebrile. The patient overall is feeling better. He is breathing comfortably. Chest pain has resolved. No nausea, no vomiting. No abdominal pain or diarrhea. Overall feeling better. PHYSICAL EXAMINATION: Blood pressure 141/84 with a pulse of 76, temperature 99.6. He is 96% on room air. General description is an elderly male up in the bed in no distress. RESPIRATORY SYSTEM: Unlabored breathing with decreased breath sounds at the base. No wheeze. HEART: S1, S2. Regular rate and rhythm. ABDOMEN: Soft. No tenderness. EXTREMITIES: No edema of the feet. LABS: Hemoglobin 11.9, white count 5.5. The patient did have a peripheral smear; review showing 6% blasts with concern for possible leukemia per pathologist report. Blood culture has been negative. DIAGNOSTIC IMPRESSION AND PLAN: 1. Patient presented to hospital with fever, also with chest pain. Initial concern for possible mediastinitis. Clinically not behaving as a bacterial infection in this patient with normal procalcitonin, fever resolved. Culture negative. Will discontinue the vancomycin and monitor the patient closely off antibiotic therapy. 2. Patient with abnormal peripheral smear. Hematology/Oncology has been consulted. Will wait for their response. MMODL / IJN: [id number] / JEFFRY
[2020-01-12] MEDS: ACETAMINOPHEN TAB 325 MG TAB PO PRN (23:19)
[2020-01-13 00:33] LABS: HCT 34.1 % (39.0-53.0); HGB 11.6 gm/dL (13.0-17.5); MCH 31.4 pg (25.0-35.0); MCHC 34.1 g/dL (31.0-37.0); MCV 92.1 fL (80.0-100.0); Mean Platelet Volume 6.5; Platelet Count 245 k/uL (150-450); RDW 13.9 % (11.5-15.5); WBC 6.9 k/uL (3.8-10.6)
[2020-01-13 01:00] LABS: Eosinophils # (M) 0.21 k/uL (0-0.7); Monocytes # (M) 1.24 k/uL (0-1.0); Neutrophils # (M) 2.55 k/uL (1.3-7.7); Neutrophils % (M) 37 %; Nucleated Red Blood Cells 0 /100 WBC (0-0); Total Cells Counted 100
[2020-01-13 08:13] LABS: MCH 31.2 pg (25.0-35.0); MCHC 33.2 g/dL (31.0-37.0); MCV 93.8 fL (80.0-100.0); Mean Platelet Volume 6.1; Platelet Count 276 k/uL (150-450); RBC 4.16 m/uL (4.30-5.90); WBC 6.5 k/uL (3.8-10.6)
[2020-01-13] MEDS: FAMOTIDINE 20 MG TAB PO SCH ×2 (09:05→20:44)
[2020-01-13] MEDS: ENOXAPARIN 40 MG/0.4 ML SYRINGE SQ SCH (09:05)
[2020-01-13] MEDS: hydrOXYzine pamoate 25 MG CAP PO SCH ×3 (09:05→20:44)
[2020-01-13] MEDS: ASPIRIN 325 MG TAB PO SCH (09:06)
[2020-01-13] MEDS: GABAPENTIN 400 MG CAP PO SCH ×3 (09:06→20:44)
[2020-01-13] MEDS: COLCHICINE 0.6 MG EACH PO SCH ×2 (09:06→20:44)
[2020-01-13] MEDS: FLUoxetine HCL 20 MG CAP PO SCH (09:06)
[2020-01-13 10:51] LABS: Band Neutrophils % 1 %; Lymphocytes # (M) 2.41 k/uL (1.0-4.8); Monocytes # (M) 0.85 k/uL (0-1.0); Neutrophils % (M) 40 %
[2020-01-13 10:52] LABS: Blast Cells # (M) 0.46 k/uL (0); Nucleated Red Blood Cells 0 /100 WBC (0-0); Total Cells Counted 200
--- NOTE | 2020-01-13 11:02 | P.PN ---
Subjective She reports 59-year-old pleasant male came in with the complaints of for fever chills sore throat body aches going on for about last 3 days. Patient was also complaining of some cough without any significant sputum production. Patient was also co mplaining of chest pain which appears to be pleuritic and I did have mildly elevated cardiac enzymes because of which radiologist was consulted. Cardiology evaluated the patient and patient chest pain is noncardiac in nature. 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 Patient was given broad-spectrum antibiotics subsequently admitted with consistent infectious disease and cardiology. 01/11 2020 Patient was evaluated by multiple consultants, patient remains on broad antibiotics blood cultures are still pending. 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 Patient on broad- spectrum antibiotics for possible infectious vasculitis and mediastinitis awaiting blood cultures patient although feeling much better today no overnight events Subjective 01/12/2020, this is a presented to the patient Patient is a pleasant 69 years old male with multiple medical problems presents because of chest pain found to have mediastinitis/aortitis with fever which is subsided for 48 hours now, he is currently on IV vancomycin. Also he had acute hypoxic respiratory failure secondary to sepsis which is improved now. Increased troponin is thought due to demand/supply mismatch. Several consult is for embolic to the patient including infection disease, pulmonary, cardiothoracic surgery. Car Runner signed off. This morning patient is complaining only for mild chest pain that comes and go, no coughing or dyspnea. No other complaints. 01/13/2020 Patient states that he has no more chest pain since yesterday, and he saw her throat looks better. No other new complaints. He still have low-grade temperature today of 100.1. Also patient found to have blasts in the blood and peripheral smear, he matology/oncology team were consulted. Review of systems CONSTITUTIONAL: No fever, no malaise, no fatigue. HEENT: No recent visual problems or hearing problems. Denied any sore throat. CARDIOVASCULAR: No orthopnea, PND, no palpitations, no syncope. PULMONARY: No shortness of breath, no cough, no hemoptysis. GASTROINTESTINAL: No diarrhea, no nausea, no vomiting, no abdominal pain. Normoactive bowel sounds. NEUROLOGICAL: No headaches, no weakness, no numbness. Active Medications Generic Name Dose Route Start Last Admin Trade Name Freq PRN Reason Stop Dose Admin Acetaminophen 650 mg 01/10/20 21:01 01/12/20 23:19 Acetaminophen Tab 325 Mg Tab PO 650 mg Q4HR PRN Administration Fever and/ or Pain Aspirin 325 mg 01/10/20 09:00 01/13/20 09:06 Aspirin 325 Mg Tab PO 325 mg DAILY RAMEZ Administration Atorvastatin Calcium 40 mg 01/10/20 21:00 01/12/20 21:26 Atorvastatin 40 Mg Tab PO 40 mg HS RAMEZ Administration Clonazepam 1 mg 01/10/20 10:56 01/11/20 20:41 Clonazepam 1 Mg Tab PO 1 mg BID PRN Administration Anxiety Colchicine 0.6 mg 01/11/20 09:00 01/13/20 09:06 Colchicine 0.6 Mg Each PO 0.6 mg BID RAMEZ Administration Enoxaparin Sodium 40 mg 01/10/20 11:15 01/13/20 09:05 Enoxaparin 40 Mg/0.4 Ml Syringe SQ 40 mg DAILY RAMEZ Administration Famotidine 20 mg 01/10/20 21:00 01/13/20 09:05 Famotidine 20 Mg Tab PO 20 mg BID RAMEZ Administration Fluoxetine HCl 40 mg 01/11/20 09:00 01/13/20 09:06 Fluoxetine Hcl 20 Mg Cap PO 40 mg DAILY RAMEZ Administration Gabapentin 400 mg 01/10/20 16:00 01/13/20 09:06 Gabapentin 400 Mg Cap PO 400 mg TID RAMEZ Administration Hydroxyzine Pamoate 50 mg 01/10/20 16:00 01/13/20 09:05 Hydroxyzine Pamoate 25 Mg Cap PO 50 mg TID RAMEZ Administration Ceftriaxone Sodium 2 gm/ 50 mls @ 100 mls/hr 01/13/20 10:15 Sodium Chloride IVPB Q24HR RAMEZ Objective - Vital Signs Vital signs: Vital Signs Temp 100.1 F H 01/13/20 08:00 Pulse 78 01/13/20 08:00 Resp 16 01/13/20 08:00 BP 110/60 01/13/20 08:00 Pulse Ox 95 01/13/20 08:00 Intake & Output 01/12/20 01/13/20 01/13/20 18:59 06:59 18:59 Intake Total 930 236 Balance 930 236 Weight 81 kg Intake: Oral 930 236 Other: Voiding Method Toilet Toilet Toilet Urinal Urinal Urinal # Voids 3 - Exam GENERAL: The patient is alert and oriented x3, not in any acute distress. Well developed, well nourished. HEENT: Pupils are round and equally reacting to light. EOMI. No scleral icterus. No conjunctival pallor. Normocephalic, atraumatic. No pharyngeal erythema. No thyromegaly. CARDIOVASCULAR: S1 and S2 present. No murmurs, rubs, or gallops. PULMONARY: Chest is clear to auscultation, no wheezing or crackles. ABDOMEN: Soft, nontender, nondistended, normoactive bowel sounds. No palpable organomegaly. MUSCULOSKELETAL: No joint swelling or deformity. EXTREMITIES: No cyanosis, clubbing, or pedal edema. NEUROLOGICAL: Gross neurological examination did not reveal any focal deficits. SKIN: No rashes. no petechiae. - Labs CBC & Chem 7: 01/13/20 07:32 01/12/20 10:49 Labs: Abnormal Lab Results - Last 24 Hours (Table) 01/10/20 01/12/20 01/12/20 Range/Units 19:24 10:49 10:49 RBC 3.87 L (4.30-5.90) m/uL Hgb 11.8 L (13.0-17.5) gm/dL Hct 36.2 L (39.0-53.0) % Blast Cells % % Monocytes # (Manual) (0-1.0) k/uL Blast Cells # (Man) (0) k/uL Pathologist Review See comment A Glucose 126 H (74-99) mg/dL C-Reactive Protein (<10.0) mg/L 01/13/20 01/13/20 01/13/20 Range/Units 00:17 07:32 07:32 RBC 3.70 L 4.16 L (4.30-5.90) m/uL Hgb 11.6 L (13.0-17.5) gm/dL Hct 34.1 L (39.0-53.0) % Blast Cells % 7 H* % Monocytes # (Manual) 1.24 H (0-1.0) k/uL Blast Cells # (Man) 0.46 H (0) k/uL Pathologist Review Glucose (74-99) mg/dL C-Reactive Protein 139.3 H (<10.0) mg/L Microbiology - Last 24 Hours (Table) 01/09/20 18:43 Blood Culture - Preliminary Blood No Growth after 72 hours Assessment and Plan Assessment: -sepsis: Patient had Aortitis and mediastinitis on the CAT, ruled out COVID 19, infectious disease was consulted. Patient is on colchicine for inflammatory vasculitis, and is on broad-spectrum antibiotics for infectious aortitis does appear to have some tonsillitis blood cultures are still pending . He and his screen is negative, group B strep was also negative for calcitonin is within normal limits. C-reactive protein is very high. D-dimer is normal for his age -Peripheral blood blasts, follow-up with hematology/oncology -Elevated troponins: Probably related to sepsis patient's echocardiogram did not show any significant abnormality -pleuritic chest pain: Probably secondary to mediastinitis. Improved -Hypertension -Dyslipidemia -DVT prophylaxis Lovenox GI prophylaxis Pepcid
--- NOTE | 2020-01-13 12:53 | P.PN ---
Subjective Progress Note Date: 01/13/20 Principal diagnosis: Febrile illness of unclear etiology 69-year-old white male patient of Dr. 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 Patient went to the urgent care clinic, he was noted to be hypoxic, and febrile, and was sent into the emergency department for further evaluation and treatment. Did have mild cough without any significant sputum p roduction. Patient had mildly elevated cardiac enzymes, and the chest pain was determined to be noncardiac in nature by cardiology. Chest x-ray showed no acute cardiopulmonary process, d-dimer was 0.73, and CTA chest was obtained showing no evidence of pulmonary embolism, and it did show increased density within the mediastinum, which was indeterminate, with the possibility of mediastinitis, aortitis, vasculitis. There was aortic ectasia. Echocardiogram showed mild concentric LVH, preserved EF of 55-60%, no abnormality was noted in the valvular structure or function with only trace tricuspid regurgitation and PA pressure of less than 35 mmHg. Normal inferior vena cava with normal inspir atory collapse and estimated right atrial pressure of 5 mmHg, and no pericardial effusion. Patient denied any recent history of swallowing difficulty, no history of recent surgical procedures, no dental procedures. CT of the neck and chest with contrast was obtained showing mild hypertrophy of the tonsils, no discrete fluid collection to suggest an abscess, small left pleural effusion with bilateral pulmonary infiltrates and subsegmental atelectasis. There was slight increased density in the mediastinal fat similar to yesterday of uncertain significance. ANAs screen was negative, coronavirus, influenza group A strep were ruled out. CRP was elevated at 161.1, and sed rate was elevated at 60. Normal white count at 4.8, hemoglobin is 12.2, electrolytes and renal profile were unremarkable. ProBNP was 361, pro calcitonin was negative at 0.07. Patient was placed on empiric antibiotics, ID service is following, patient is currently on vancomycin. He was seen by multiple consultants including ID service, and CT surgery. The findings on the CT of the chest suggesting mediastinitis are nonspecific, patient is awake and alert, currently on room air, he is a bit diaphoretic, but febrile pattern has improved and his temp is down to 99.2F on today's evaluation. On 01/12/2020 patient seen in follow-up on selective care unit, he states his fever broke, he is febrile pattern has improved although patient still had low- grade fevers in the last 24 hours, with a T-max of 99.5F, afebrile this morning. Remains on vancomycin for antibiotic coverage, denies any shortness of breath, no cough or congestion, did have one episode of midsternal chest pain last night, EKG did not show any acute ischemic changes, and the pain was likely pleuritic in nature. This morning patient's chest pain is improved, and comes and goes on and off. No altered mentation, his throat is still mildly sore, patient has no difficulty swallowing. He was started on colchicine by CT surgery, and overall his pleuritic chest pain has improved in intensity since admission. Today's labs have been reviewed, white blood cell count is 5.5, hemoglobin is 11.8, electrolytes and renal profile were within normal limits. Blood cultures have shown no growth, group A throat culture was negative. The patient is seen today's number [id number] in follow-up selective care unit. He is currently sitting up in bed. Awake and alert in no acute distress. Maintaining O2 saturation in the mid 90s on room air. Current temperature 100.1. Throat culture negative for strep. Blood cultures revealing no growth. White count 6.5. Hemoglobin 13.0. Her last cells 7%. LDH 438. C-reactive protein 139. He remains on ceftriaxone. Vancomycin discontinued. Objective - Vital Signs Vital signs: Vital Signs Temp 100.1 F H 01/13/20 08:00 Pulse 78 01/13/20 08:00 Resp 16 01/13/20 11:02 BP 110/60 01/13/20 08:00 Pulse Ox 95 01/13/20 08:00 Intake & Output 01/12/20 01/13/20 01/13/20 18:59 06:59 18:59 Intake Total 930 236 Output Total 300 Balance 930 -64 Weight 81 kg Intake: Oral 930 236 Output: Urine 300 Other: Voiding Method Toilet Toilet Toilet Urinal Urinal Urinal # Voids 3 - Exam GENERAL EXAM: Alert, very pleasant, 69-year-old male patient, on room air, with a pulse ox of 95%, oriented 3, patient appears very comfortable HEAD: Normocephalic/atraumatic. EYES: Normal reaction of pupils, equal size. Conjunctiva pink, sclera white. NOSE: Clear with pink turbinates. THROAT: No erythema or exudates. NECK: No masses, no JVD, no thyroid enlargement, no adenopathy. CHEST: No chest wall deformity. Symmetrical expansion. LUNGS: Equal air entry with no crackles, wheeze, rhonchi or dullness. CVS: Regular rate and rhythm, normal S1 and S2, no gallops, no murmurs, no rubs ABDOMEN: Soft, nontender. No hepatosplenomegaly, normal bowel sounds, no guarding or rigidity. EXTREMITIES: No clubbing, no edema, no cyanosis, 2+ pulses and upper and lower extremities. MUSCULOSKELETAL: Muscle strength and tone normal. SPINE: No scoliosis or deformity SKIN: No rashes CENTRAL NERVOUS SYSTEM: No focal deficits, tone is normal in all 4 extremities. PSYCHIATRIC: Alert and oriented -3. Appropriate affect. Intact judgment and insight. - Labs CBC & Chem 7: 01/13/20 07:32 01/12/20 10:49 Labs: Abnormal Lab Results - Last 24 Hours (Table) 01/10/20 01/13/20 01/13/20 Range/Units 19:24 00:17 07:32 RBC 3.70 L 4.16 L (4.30-5.90) m/uL Hgb 11.6 L (13.0-17.5) gm/dL Hct 34.1 L (39.0-53.0) % Blast Cells % 7 H* % Monocytes # (Manual) 1.24 H (0-1.0) k/uL Blast Cells # (Man) 0.46 H (0) k/uL Pathologist Review See comment A C-Reactive Protein (<10.0) mg/L 01/13/20 Range/Units 07:32 RBC (4.30-5.90) m/uL Hgb (13.0-17.5) gm/dL Hct (39.0-53.0) % Blast Cells % % Monocytes # (Manual) (0-1.0) k/uL Blast Cells # (Man) (0) k/uL Pathologist Review C-Reactive Protein 139.3 H (<10.0) mg/L Microbiology - Last 24 Hours (Table) 01/09/20 18:43 Blood Culture - Preliminary Blood No Growth after 72 hours Assessment and Plan Assessment: #1. Febrile illness with CT chest findings of possible mediastinitis or aortitis, Coreg 19, influenza ruled out, rapid group B strep ruled out. Patient is on broad-spectrum antibiotics. CT of the neck and chest showed no evidence of abscess, it did show mild hypertrophy of the tonsils. CTA chest showed grossly clear lungs, no evidence of PE #2. Acute hypoxic respiratory failure, likely related to sepsis, no evidence PE on the CT chest. #3. Pleuritic chest pain, shortness of breath, fever #4. Elevated troponins, not related to acute myocardial ischemia, was evaluated by cardiology #5. Previous history of hemorrhagic CVA 6 years ago, recovered #6. Anxiety/depression Plan: The patient was seen and evaluated by Dr. Simon Remains febrile Continue current medications for now We will continue to follow I, the cosigning physician, performed a history & physical examination of the patient. Lungs sounds are clear. Maintaining good O2 saturations in the 90s on room air. I discussed the assessment and plan of care with my nurse practitioner, Estela Barrera. I attest to the above note as dictated by her.
--- NOTE | 2020-01-13 14:00 | US ---
EXAMINATION TYPE: US abdomen limited DATE OF EXAM: 01/13/2020 COMPARISON: NONE CLINICAL HISTORY: peripheral blasts. Assess spleen size, abnormal labs EXAM MEASUREMENTS: Spleen: 11.0 cm Left Kidney: 10.0 x 5.3 x 4.9 cm 1. Spleen: wnl 2. Left Kidney: wnl Left kidney normal in size without concerning mass or hydronephrosis. Spleen normal in size without c oncerning focal splenic lesion or surrounding ascites. IMPRESSION: As above.
--- NOTE | 2020-01-13 15:21 | PN ---
PROGRESS NOTE DATE OF SERVICE: 01/13/2020 REASON FOR FOLLOWUP VISIT: Fever and a question of viral syndrome versus lymphoproliferative disorder. INTERVAL HISTORY: The patient did have a low fever of 100.1 this morning; however, the patient overall is feeling better. He is breathing comfortably. Denies having any chest pain. No shortness of breath or cough. No nausea. No abdominal pain, no diarrhea. PHYSICAL EXAMINATION: Blood pressure 110/60 with a pulse of 78, temperature 100.1. He is 95% on room air. General description is an elderly male, lying in bed in no distress. RESPIRATORY SYSTEM: Unlabored breathing, clear to auscultation anteriorly. HEART: S1, S2. Regular rate and rhythm. ABDOMEN: Soft, no tenderness. LABS: Hemoglobin is 13.5, white count 6.5, CRP is 139. IMPRESSION/PLAN: Patient with a fever presented to the hospital with chest pain with concern for possible pericarditis for which the patient by CT Surgery has been ruled out. The patient did have no obvious focus of infection. Antibiotic in the form of Rocephin 2 g daily to finish a short course of oral Ceftin until the patient is evaluated by Hematology-Oncology in the outpatient setting for a bone marrow biopsy. Questions and concerns were answered. MMODL / IJN: [id number] / JEFFRY
[2020-01-13 18:38] LABS: Protein, Total 6.3 g/dL (6.2-8.2)
[2020-01-13] MEDS: ATORVASTATIN 40 MG TAB PO SCH (20:44)
[2020-01-13 20:45] LABS: % Iron Saturation 14.03 (15.00-50.00)
[2020-01-13] MEDS: ACETAMINOPHEN TAB 325 MG TAB PO PRN (20:45)
[2020-01-13 21:21] LABS: Ferritin 1181.3 ng/mL (22.0-322.0)
--- NOTE | 2020-01-14 00:23 | P.CONS ---
History of Present Illness - Reason for Consult Consult date: 01/13/20 blasts on peripheral smear - History of Present Illness The patient is a 69-year-old white male with overall well-controlled medical problems. The patient came into the hospital complaining of fever, chills, ch est discomfort and cough. The patient was mostly low-grade, less than 101. The patient had a cardiac evaluation on admission which ruled out cardiac ischemia. He had a CTA of the chest done negative for PE or dissection. However there was abnormal mediastinal density noted felt to possibly represent mediastinitis, or vasculitis. The patient did have elevated inflammatory markers. He was seen by cardiothoracic surgery who felt that the mediastinum findings were nonspecific. The patient also seen by ID and subsequently antibiotics with improvement in symptoms. Labs on admission showed 6% blasts with other CBC indices essentially normal, including blood counts. Repeat differential today again showed 7% blasts. Consult was therefore placed for further evaluation and recommendations. The patient denied any prior history of blood related problems. He states that he has lost about 30 pounds over the past 10 months though he has attributed that to change in diet Review of Systems Constitutional: Reports fever, Reports weight loss Eyes: denies blurred vision, denies pain Ears: deny: decreased hearing, ear discharge, earache, tinnitus Ears, nose, mouth and throat: Reports sore throat Cardiovascular: Reports chest pain, Reports shortness of breath Respiratory: Reports as per HPI, Reports cough, Reports dyspnea, Reports pain (as per HPI) Gastrointestinal: Denies abdominal pain, Denies diarrhea, Denies nausea, Denies vomiting Genitourinary: Reports as per HPI Musculoskeletal: Reports as per HPI Integumentary: Denies pruritus, Denies rash Neurological: Reports as per HPI, Denies numbness, Denies weakness Psychiatric: Reports as per HPI, Denies anxiety, Denies depression Endocrine: Reports fatigue, Reports weight change Hematologic/Lymphatic: Reports as per HPI Past Medical History Past Medical History: CVA/TIA, Hyperlipidemia, Hypertension Additional Past Medical History / Comment(s): Left-sided spontaneous pneuomthorax; hemorrhagic stroke; left carotid stenosis 50% History of Any Multi-Drug Resistant Organisms: None Reported Additional Past Surgical History / Comment(s): ACL replacement Past Anesthesia/Blood Transfusion Reactions: No Reported Reaction Past Psychological History: Anxiety, Depression Smoking Status: Former smoker Past Alcohol Use History: None Reported Additional Past Alcohol Use History / Comment(s): smoked a pack a day for 25 years Past Drug Use History: None Reported - Past Family History Father Family Medical History: Unable to Obtain Additional Family Medical History / Comment(s): Unable to attain family medical history as patient was adopted Medications and Allergies Home Medications Medication Instructions Recorded Confirmed Type Atorvastatin [Lipitor] 40 mg PO HS 01/09/20 01/09/20 History FLUoxetine HCL [PROzac] 40 mg PO DAILY 01/09/20 01/09/20 History Gabapentin [Neurontin] 400 mg PO TID 01/09/20 01/09/20 History clonazePAM [KlonoPIN] 1 mg PO BID 01/09/20 01/09/20 History hydrOXYzine pamoate [Vistaril] 50 mg PO TID 01/09/20 01/09/20 History lisinopriL [Zestril] 5 mg PO DAILY 01/09/20 01/09/20 History Allergies Allergy/AdvReac Type Severity Reaction Status Date / Time No Known Allergies Allergy Verified 01/09/20 20:03 Physical Exam Vitals: Vital Signs Temp Pulse Resp BP Pulse Ox 01/13/20 16:00 100.2 F H 70 16 122/69 98 01/13/20 12:00 98.6 F 64 16 108/63 95 01/13/20 11:02 16 01/13/20 08:00 100.1 F H 78 16 110/60 95 01/13/20 04:00 98.5 F 58 L 18 120/63 98 01/13/20 00:00 100.2 F H 78 18 126/64 96 Intake and Output 01/13/20 01/13/20 01/14/20 14:59 22:59 06:59 Intake Total 472 240 Output Total 300 Balance 172 240 Intake: Oral 472 240 Output: Urine 300 Other: Voiding Method Toilet Toilet Urinal Urinal # Voids 2 - Constitutional General appearance: no acute distress - EENT Eyes: EOMI, PERRLA ENT: hearing grossly normal, normal oropharynx - Neck Neck: no lymphadenopathy Thyroid: bilateral: normal size - Respiratory Respiratory: bilateral: CTA - Cardiovascular Rhythm: regular Heart sounds: normal: S1, S2 - Gastrointestinal General gastrointestinal: normal bowel sounds, soft - Integumentary Integumentary: normal - Neurologic Neurologic: CNII-XII intact - Musculoskeletal Musculoskeletal: strength equal bilaterally - Psychiatric Psychiatric: A&O x's 3, appropriate affect Results CBC & Chem 7: 01/13/20 07:32 01/12/20 10:49 Labs: Abnormal Lab Results - Last 24 Hours (Table) 01/13/20 01/13/20 01/13/20 Range/Units 00:17 07:32 07:32 RBC 3.70 L 4.16 L (4.30-5.90) m/uL Hgb 11.6 L (13.0-17.5) gm/dL Hct 34.1 L (39.0-53.0) % Blast Cells % 7 H* % Monocytes # (Manual) 1.24 H (0-1.0) k/uL Blast Cells # (Man) 0.46 H (0) k/uL Iron (65-175) ug/dL TIBC (228-460) ug/dL % Saturation (15.00-50.00) Ferritin (22.0-322.0) ng/mL C-Reactive Protein 139.3 H (<10.0) mg/L 01/13/20 Range/Units 07:32 RBC (4.30-5.90) m/uL Hgb (13.0-17.5) gm/dL Hct (39.0-53.0) % Blast Cells % % Monocytes # (Manual) (0-1.0) k/uL Blast Cells # (Man) (0) k/uL Iron 31 L (65-175) ug/dL TIBC 221 L (228-460) ug/dL % Saturation 14.03 L (15.00-50.00) Ferritin 1181.3 H (22.0-322.0) ng/mL C-Reactive Protein (<10.0) mg/L Microbiology - Last 24 Hours (Table) 01/09/20 18:43 Blood Culture - Preliminary Blood No Growth after 96 hours Chest x-ray: report reviewed CT scan - chest: report reviewed Assessment and Plan (1) Blood dyscrasia Narrative/Plan: The consult was placed because the patient was noted to have blasts on peripheral smear. Implications of these were discussed in detail with him. At this time his CBC is otherwise normal. He is admitted with what appears to be acute inflammation and is clinically improving. He was advised that the presence of blasts in the peripheral blood indicates an underlying marrow disorder. As his other blood counts are normal and blasts are being seen only in the state of acute inflammation this could be a transient phenomenon due to stimulation of underlying marrow disorder due to acute inflammation At this time I will start workup by checking for other processes that could cause marrow dysfunction such as deficiency states and paraproteinemia. I will also check LDH. Monitor blood counts in the interim. As long as there is no major change in counts, continue to monitor outpatient with plan for bone marrow aspiration biopsy within the next 2-3 weeks. Current Visit: Yes Status: Acute Code(s): D75.9 - DISEASE OF BLOOD AND BLOOD-FORMING ORGANS, UNSPECIFIED SNOMED Code(s): 422752572 (2) Mediastinitis Narrative/Plan: CT finding in the mediastinum was felt to be nonspecific. In any case the patient's symptoms are improved with current treatment. Workup was negative for influenza, and coronavirus. Defer to the admitting service and other consultants for further management Current Visit: Yes Status: Acute Code(s): J98.51 - MEDIASTINITIS SNOMED Code(s): 141309579
[2020-01-14] MEDS: ENOXAPARIN 40 MG/0.4 ML SYRINGE SQ SCH (09:17)
[2020-01-14] MEDS: FAMOTIDINE 20 MG TAB PO SCH ×2 (09:17→20:23)
[2020-01-14] MEDS: hydrOXYzine pamoate 25 MG CAP PO SCH ×3 (09:17→22:34)
[2020-01-14] MEDS: GABAPENTIN 400 MG CAP PO SCH ×3 (09:17→22:34)
[2020-01-14] MEDS: COLCHICINE 0.6 MG EACH PO SCH ×2 (09:17→20:24)
[2020-01-14] MEDS: ASPIRIN 325 MG TAB PO SCH (09:17)
[2020-01-14] MEDS: FLUoxetine HCL 20 MG CAP PO SCH (09:17)
[2020-01-14 09:29] LABS: Free Kappa Lt Chain Qnt, Serum 3.41 mg/dL (0.33-1.94)
--- NOTE | 2020-01-14 10:58 | P.PN ---
Subjective She reports 59-year-old pleasant male came in with the complaints of for fever chills sore throat body aches going on for about last 3 days. Patient was also complaining of some cough without any significant sputum production. Patient was also co mplaining of chest pain which appears to be pleuritic and I did have mildly elevated cardiac enzymes because of which radiologist was consulted. Cardiology evaluated the patient and patient chest pain is noncardiac in nature. 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 Patient was given broad-spectrum antibiotics subsequently admitted with consistent infectious disease and cardiology. 01/11 2020 Patient was evaluated by multiple consultants, patient remains on broad antibiotics blood cultures are still pending. 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 Patient on broad- spectrum antibiotics for possible infectious vasculitis and mediastinitis awaiting blood cultures patient although feeling much better today no overnight events Subjective 01/12/2020, this is a presented to the patient Patient is a pleasant 69 years old male with multiple medical problems presents because of chest pain found to have mediastinitis/aortitis with fever which is subsided for 48 hours now, he is currently on IV vancomycin. Also he had acute hypoxic respiratory failure secondary to sepsis which is improved now. Increased troponin is thought due to demand/supply mismatch. Several consult is for embolic to the patient including infection disease, pulmonary, cardiothoracic surgery. Supervisor [employer] signed off. This morning patient is complaining only for mild chest pain that comes and go, no coughing or dyspnea. No other complaints. 01/13/2020 Patient states that he has no more chest pain since yesterday, and he saw her throat looks better. No other new complaints. He still have low-grade temperature today of 100.1. Also patient found to have blasts in the blood and peripheral smear, he matology/oncology team were consulted. 01/14/2020 Patient has no chest pain except last night, no more chest pain today. His sore throat is improving. Patient is not dyspneic. He still had fever yesterday at 100.8. So patient is kept on IV antibiotics with IV vancomycin, ceftriaxone was added by infectious disease team. Hematology team evaluated the patient for blasts in the peripheral smear and they recommended bone marrow biopsy in 2-3 weeks as an outpatient. We will keep close monitoring. vitals and labs are stable Review of systems CONSTITUTIONAL: No fever, no malaise, no fatigue. HEENT: No recent visual problems or hearing problems. Denied any sore throat. CARDIOVASCULAR: No orthopnea, PND, no palpitations, no syncope. PULMONARY: No shortness of breath, no cough, no hemoptysis. GASTROINTESTINAL: No diarrhea, no nausea, no vomiting, no abdominal pain. Normoactive bowel sounds. NEUROLOGICAL: No headaches, no weakness, no numbness. Active Medications Generic Name Dose Route Start Last Admin Trade Name Freq PRN Reason Stop Dose Admin Acetaminophen 650 mg 01/10/20 21:01 01/13/20 20:45 Acetaminophen Tab 325 Mg Tab PO 650 mg Q4HR PRN Administration Fever and/ or Pain Aspirin 325 mg 01/10/20 09:00 01/14/20 09:17 Aspirin 325 Mg Tab PO 325 mg DAILY RAMEZ Administration Atorvastatin Calcium 40 mg 01/10/20 21:00 01/13/20 20:44 Atorvastatin 40 Mg Tab PO 40 mg HS RAMEZ Administration Clonazepam 1 mg 01/10/20 10:56 01/11/20 20:41 Clonazepam 1 Mg Tab PO 1 mg BID PRN Administration Anxiety Colchicine 0.6 mg 01/11/20 09:00 01/14/20 09:17 Colchicine 0.6 Mg Each PO 0.6 mg BID RAMEZ Administration Enoxaparin Sodium 40 mg 01/10/20 11:15 01/14/20 09:17 Enoxaparin 40 Mg/0.4 Ml Syringe SQ 40 mg DAILY RAMEZ Administration Famotidine 20 mg 01/10/20 21:00 01/14/20 09:17 Famotidine 20 Mg Tab PO 20 mg BID RAMEZ Administration Fluoxetine HCl 40 mg 01/11/20 09:00 01/14/20 09:17 Fluoxetine Hcl 20 Mg Cap PO 40 mg DAILY RAMEZ Administration Gabapentin 400 mg 01/10/20 16:00 01/14/20 09:17 Gabapentin 400 Mg Cap PO 400 mg TID RAMEZ Administration Hydroxyzine Pamoate 50 mg 01/10/20 16:00 01/14/20 09:17 Hydroxyzine Pamoate 25 Mg Cap PO 50 mg TID RAMEZ Administration Ceftriaxone Sodium 2 gm/ 50 mls @ 100 mls/hr 01/13/20 10:15 01/14/20 09:17 Sodium Chloride IVPB 100 mls/hr Q24HR RAMEZ Administration Objective - Vital Signs Vital signs: Vital Signs Temp 98.4 F 01/14/20 04:00 Pulse 63 01/14/20 04:00 Resp 16 01/14/20 04:00 BP 120/59 01/14/20 04:00 Pulse Ox 97 01/14/20 04:00 Intake & Output 01/13/20 01/14/20 01/14/20 18:59 06:59 18:59 Intake Total 712 120 Output Total 300 250 Balance 412 -250 120 Weight 81.3 kg Intake: Oral 712 120 Output: Urine 300 250 Other: Voiding Method Toilet Toilet Urinal Urinal # Voids 2 1 - Exam GENERAL: The patient is alert and oriented x3, not in any acute distress. Well developed, well nourished. HEENT: Pupils are round and equally reacting to light. EOMI. No scleral icterus. No conjunctival pallor. Normocephalic, atraumatic. No pharyngeal erythema. No thyromegaly. CARDIOVASCULAR: S1 and S2 present. No murmurs, rubs, or gallops. PULMONARY: Chest is clear to auscultation, no wheezing or crackles. ABDOMEN: Soft, nontender, nondistended, normoactive bowel sounds. No palpable organomegaly. MUSCULOSKELETAL: No joint swelling or deformity. EXTREMITIES: No cyanosis, clubbing, or pedal edema. NEUROLOGICAL: Gross neurological examination did not reveal any focal deficits. SKIN: No rashes. no petechiae. - Labs CBC & Chem 7: 01/13/20 07:32 01/12/20 10:49 Labs: Abnormal Lab Results - Last 24 Hours (Table) 01/13/20 01/13/20 01/13/20 Range/Units 07:32 07:32 07:32 Blast Cells % 7 H* % Blast Cells # (Man) 0.46 H (0) k/uL Iron 31 L (65-175) ug/dL TIBC 221 L (228-460) ug/dL % Saturation 14.03 L (15.00-50.00) Ferritin 1181.3 H (22.0-322.0) ng/mL Free [place] LC, Quant 3.41 H (0.33-1.94) mg/dL Microbiology - Last 24 Hours (Table) 09/20/20 18:43 Blood Culture - Preliminary Blood No Growth after 96 hours Assessment and Plan Assessment: -sepsis: Patient had Aortitis and mediastinitis on the CAT, ruled out COVID 19, infectious disease was consulted. Patient is on colchicine for inflammatory vasculitis, and is on broad-spectrum antibiotics for infectious aortitis does appear to have some tonsillitis blood cultures are still pending . He and his screen is negative, group B strep was also negative for calcitonin is within normal limits. C-reactive protein is very high. D-dimer is normal for his age -Peripheral blood blasts, follow-up with hematology/oncology -Elevated troponins: Probably related to sepsis patient's echocardiogram did not show any significant abnormality -pleuritic chest pain: Probably secondary to mediastinitis. Improved -Hypertension -Dyslipidemia -DVT prophylaxis Lovenox GI prophylaxis Pepcid
[2020-01-14 12:14] VITALS: BMI 28.9
--- NOTE | 2020-01-14 12:33 | P.PN ---
Subjective Progress Note Date: 01/14/20 Principal diagnosis: Pleuritic chest pain, fever chills, sore throat 69-year-old white male patient of Dr. 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 Patient went to the urgent care clinic, he was noted to be hypoxic, and febrile, and was sent into the emergency department for further evaluation and treatment. Did have mild cough without any significant sputum production. Patient had mildly elevated cardiac enzymes, and the chest pain was determined to be noncardiac in nature by cardiology. Chest x-ray showed no acute cardiopulmonary process, d-dimer was 0.73, and CTA chest was obtained showing no evidence of pulmonary embolism, and it did show increased density within the mediastinum, which was indeterminate, with the possibility of medias tinitis, aortitis, vasculitis. There was aortic ectasia. Echocardiogram showed mild concentric LVH, preserved EF of 55-60%, no abnormality was noted in the valvular structure or function with only trace tricuspid regurgitation and PA pressure of less than 35 mmHg. Normal inferior vena cava with normal inspiratory collapse and estimated right atrial pressure of 5 mmHg, and no pericardial effusion. Patient denied any recent history of swallowing difficulty, no history of recent surgical procedures, no dental procedures. CT of the neck and chest with contrast was obtained showing mild hypertrophy of the tonsils, no discrete fluid collection to suggest an abscess, small left pleural effusion with bilateral pulmonary infiltrates and subsegmental atelectasis. There was slight increased density in the mediastinal fat similar to yesterday of uncertain significance. ANAs screen was negative, coronavirus, influenza group A strep were ruled out. CRP was elevated at 161.1, and sed rate was elevated at 60. Normal white count at 4.8, hemoglobin is 12.2, electrolytes and renal profile were unremarkable. ProBNP was 361, pro calcitonin was negative at 0.07. Patient was placed on empiric antibiotics, ID service is following, patient is currently on vancomycin. He was seen by multiple consultants including ID service, and CT surgery. The findings on the CT of the chest suggesting mediastinitis are nonspecific, patient is awake and alert, currently on room air, he is a bit diaphoretic, but febrile pattern has improved and his temp is down to 99.2F on today's evaluation. On 01/12/2020 patient seen in follow-up on selective care unit, he states his fever broke, he is febrile pattern has improved although patient still had low- grade fevers in the last 24 hours, with a T-max of 99.5F, afebrile this morning. Remains on vancomycin for antibiotic coverage, denies any shortness of breath, no cough or congestion, did have one episode of midsternal chest pain last night, EKG did not show any acute ischemic changes, and the pain was likely pleuritic in nature. This morning patient's chest pain is improved, and comes and goes on and off. No altered mentation, his throat is still mildly sore, patient has no difficulty swallowing. He was started on colchicine by CT surgery, and overall his pleuritic chest pain has improved in intensity since admission. Today's labs have been reviewed, white blood cell count is 5.5, hemoglobin is 11.8, electrolytes and renal profile were within normal limits. Blood cultures have shown no growth, group A throat culture was negative On 01/14/2020 patient is seen in follow-up on selective care unit. Denies any chest pain, his sore throat has significantly improved since admission, no swallowing issues, did have a low-grade fever last night, with a temp of 100.8F, ID service is following, antibiotics were discontinued, labs have been reviewed, showing normal white count, patient did have an abnormal peripheral smear, and a blast cells of 7, for which an intelligent oncology have been consulted. Pro calcitonin was negative at 0.07. Patient ruled out for connective tissue disorder, ruled out for coronavirus, group A strep infection, and influenza. Denies any significant complaints at this time, still has some sores in his oral cavity. Has been tolerating oral intake, abdominal ultrasound was obtained showing spleen within normal limits, and left kidney without evidence of mass or hydronephrosis. Objective - Vital Signs Vital signs: Vital Signs Temp 98.1 F 01/14/20 08:00 Pulse 69 01/14/20 08:00 Resp 19 01/14/20 08:00 BP 113/68 01/14/20 08:00 Pulse Ox 96 01/14/20 08:00 Intake & Output 01/13/20 01/14/20 01/14/20 18:59 06:59 18:59 Intake Total 712 120 Output Total 300 250 Balance 412 -250 120 Weight 81.3 kg 81.3 kg Intake: Oral 712 120 Output: Urine 300 250 Other: Voiding Method Toilet Toilet Urinal Urinal # Voids 2 1 - Exam GENERAL EXAM: Alert, very pleasant, 69-year-old on room air, with a pulse ox of 96%, oriented 3, no diaphoresis on today's exam, patient appears very comfortable, denies any chills or sweats but no acute distress comfortable in no apparent distress. HEAD: Normocephalic/atraumatic. EYES: Normal reaction of pupils, equal size. Conjunctiva pink, sclera white. NOSE: Clear with pink turbinates. THROAT: No erythema or exudates. NECK: No masses, no JVD, no thyroid enlargement, no adenopathy. CHEST: No chest wall deformity. Symmetrical expansion. LUNGS: Equal air entry with no crackles, wheeze, rhonchi or dullness. CVS: Regular rate and rhythm, normal S1 and S2, no gallops, no murmurs, no rubs ABDOMEN: Soft, nontender. No hepatosplenomegaly, normal bowel sounds, no guarding or rigidity. EXTREMITIES: No clubbing, no edema, no cyanosis, 2+ pulses and upper and lower extremities. MUSCULOSKELETAL: Muscle strength and tone normal. SPINE: No scoliosis or deformity SKIN: No rashes CENTRAL NERVOUS SYSTEM: Alert and oriented -3. No focal deficits, tone is normal in all 4 extremities. PSYCHIATRIC: Alert and oriented -3. Appropriate affect. Intact judgment and insight. - Labs CBC & Chem 7: 01/13/20 07:32 01/12/20 10:49 Labs: Abnormal Lab Results - Last 24 Hours (Table) 01/13/20 01/13/20 Range/Units 07:32 07:32 Iron 31 L (65-175) ug/dL TIBC 221 L (228-460) ug/dL % Saturation 14.03 L (15.00-50.00) Ferritin 1181.3 H (22.0-322.0) ng/mL Free [place] LC, Quant 3.41 H (0.33-1.94) mg/dL Microbiology - Last 24 Hours (Table) 01/09/20 18:43 Blood Culture - Preliminary Blood No Growth after 96 hours Assessment and Plan Plan: Assessment: #1. Febrile illness with CT chest findings of possible mediastinitis or aortitis, Coreg 19, influenza ruled out, rapid group B strep ruled out. Patient is on broad-spectrum antibiotics. CT of the neck and chest showed no evidence of abscess, it did show mild hypertrophy of the tonsils. CTA chest showed grossly clear lungs, no evidence of PE #2. Acute hypoxic respiratory failure, likely related to sepsis, no evidence PE on the CT chest, resolved, patient is currently on room air #3. Pleuritic chest pain, shortness of breath, fever #4. Elevated troponins, not related to acute myocardial ischemia, was evaluated by cardiology #5. Previous history of hemorrhagic CVA 6 years ago, recovered #6. Anxiety/depression #7. Blood dyscrasia, with evidence of abnormal peripheral smear and increased blast cells, hematology oncology is following Plan: Patient has no pulmonary complaints, had some low-grade fevers last night, ID service is following, patient is currently not on any antibiotics. he is being evaluated by hematology possibility of blood dyscrasia. No shortness of breath, no chest pain, remains on room air, has no specific complaints. From pulmonary perspective patient can be considered for discharge once cleared by hematology and ID service I performed a history & physical examination of the patient and discussed their management with my nurse practitioner, Candy Brumfield. I reviewed the nurse practitioner's note and agree with the documented findings and plan of care. Lung sounds are positive for diminished breath sounds. The findings and the impression was discussed with the patient. I attest to the documentation by the nurse practitioner. Time with Patient: Less than 30
--- NOTE | 2020-01-14 14:32 | PN ---
PROGRESS NOTE DATE OF SERVICE: 01/14/2020 REASON FOR FOLLOWUP: Fever and question of left lymphoproliferative disorder versus viral syndrome. INTERVAL HISTORY: The patient is currently afebrile, afebrile. However, he did spike a fever of 100.8 last night. The patient overall is feeling better. He is breathing comfortably. Denies having any chest pain. No shortness of breath or cough. No nausea, no vomiting. No abdominal pain, no diarrhea. PHYSICAL EXAMINATION: Blood pressure is 113/60 with a pulse of 69, temperature 98.1, he is 96% on room air. General description is an elderly male, up in the bed in no distress. RESPIRATORY SYSTEM: Unlabored breathing, clear to auscultation anteriorly. HEART: S1, S2. Regular rate and rhythm. ABDOMEN: Soft, no tenderness. LABS: No new labs have been obtained today. Blood culture has been negative. DIAGNOSTIC IMPRESSION AND PLAN: Patient with fever, possible lymphoproliferative disorder with patient, clinically not behaving as bacterial infection with all the cultures negative on empiric Rocephin. May consider short course of oral Ceftin on discharge or discontinue. Continue supportive care. MMODL / IJN: [id number] / JEFFRY
[2020-01-14 14:39] LABS: Gamma Globulin 0.89 g/dL (0.70-1.50)
--- NOTE | 2020-01-14 19:17 | P.PN ---
Subjective Progress Note Date: 01/14/20 Principal diagnosis: Peripheral Blast Planning Bone Marrow Biopsy next week as outpatient. Discussed risks and benefits of bone marrow biopsy as well as procedure. Objective - Vital Signs Vital signs: Vital Signs Temp 98.1 F 01/14/20 08:00 Pulse 65 01/14/20 16:00 Resp 18 01/14/20 16:00 BP 115/62 01/14/20 16:00 Pulse Ox 97 01/14/20 16:00 Intake & Output 01/14/20 01/14/20 01/15/20 06:59 18:59 06:59 Intake Total 240 Output Total 250 Balance -250 240 Weight 81.3 kg 81.3 kg Intake: Oral 240 Output: Urine 250 Other: Voiding Method Toilet Urinal # Voids 1 - Exam - Constitutional General appearance: no acute distress - EENT Eyes: EOMI, PERRLA ENT: hearing grossly normal, normal oropharynx - Neck Neck: no lymphadenopathy Thyroid: bilateral: normal size - Respiratory Respiratory: bilateral: CTA - Cardiovascular Rhythm: regular Heart sounds: normal: S1, S2 - Gastrointestinal General gastrointestinal: normal bowel sounds, soft - Integumentary Integumentary: normal - Neurologic Neurologic: CNII-XII intact - Musculoskeletal Musculoskeletal: strength equal bilaterally - Psychiatric Psychiatric: A&O x's 3, appropriate affect - Labs CBC & Chem 7: 01/13/20 07:32 01/12/20 10:49 Labs: Abnormal Lab Results - Last 24 Hours (Table) 01/12/20 01/13/20 01/13/20 Range/Units 10:49 07:32 07:32 Iron 31 L (65-175) ug/dL TIBC 221 L (228-460) ug/dL % Saturation 14.03 L (15.00-50.00) Ferritin 1181.3 H (22.0-322.0) ng/mL Albumin (PEP) 3.00 L (3.80-4.90) g/dL Epagu-1-Rsffyhxwv 0.45 H (0.10-0.40) g/dL Udbfo-7-Xxmrpclqb 1.20 H (0.60-1.00) g/dL RBC Folate 1,014 H (280 - 791) ng/mL Free [place] LC, Quant 3.41 H (0.33-1.94) mg/dL Microbiology - Last 24 Hours (Table) 01/09/20 18:43 Blood Culture - Preliminary Blood No Growth after 96 hours Assessment and Plan Plan: Chest x-ray: report reviewed CT scan - chest: report reviewed Assessment and Plan Blood dyscrasia - Blasts in peripheral blood - Planning Bone Marrow Biopsy to assess for underlying marrow disorder - Additional work-up at this point is negative Mediastinitis - CT finding in the mediastinum was felt to be nonspecific. - In any case the patient's symptoms are improved with current treatment. - Workup was negative for influenza, and coronavirus. Defer to the admitting service and other consultants for further management Physician Attest: I have completed the full history and physicial and agree with above dictation, dictated as a scribe Greater than 30 minutes discussing plan after discharge with patient
[2020-01-14] MEDS: ATORVASTATIN 40 MG TAB PO SCH (20:23)
[2020-01-14] MEDS: ACETAMINOPHEN TAB 325 MG TAB PO PRN (20:23)
[2020-01-15] MEDS: ACETAMINOPHEN TAB 325 MG TAB PO PRN (03:27)
[2020-01-15] MEDS: ASPIRIN 325 MG TAB PO SCH (09:11)
[2020-01-15] MEDS: COLCHICINE 0.6 MG EACH PO SCH ×2 (09:11→22:06)
[2020-01-15] MEDS: ENOXAPARIN 40 MG/0.4 ML SYRINGE SQ SCH (09:11)
[2020-01-15] MEDS: GABAPENTIN 400 MG CAP PO SCH ×3 (09:11→21:30)
[2020-01-15] MEDS: FAMOTIDINE 20 MG TAB PO SCH ×2 (09:13→21:31)
[2020-01-15] MEDS: hydrOXYzine pamoate 25 MG CAP PO SCH ×3 (09:13→21:30)
[2020-01-15] MEDS: FLUoxetine HCL 20 MG CAP PO SCH (09:13)
--- NOTE | 2020-01-15 09:50 | P.PN ---
Subjective She reports 59-year-old pleasant male came in with the complaints of for fever chills sore throat body aches going on for about last 3 days. Patient was also complaining of some cough without any significant sputum production. Patient was also co mplaining of chest pain which appears to be pleuritic and I did have mildly elevated cardiac enzymes because of which radiologist was consulted. Cardiology evaluated the patient and patient chest pain is noncardiac in nature. 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 Patient was given broad-spectrum antibiotics subsequently admitted with consistent infectious disease and cardiology. 01/11 2020 Patient was evaluated by multiple consultants, patient remains on broad antibiotics blood cultures are still pending. 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 Patient on broad- spectrum antibiotics for possible infectious vasculitis and mediastinitis awaiting blood cultures patient although feeling much better today no overnight events Subjective 01/12/2020, this is a presented to the patient Patient is a pleasant 69 years old male with multiple medical problems presents because of chest pain found to have mediastinitis/aortitis with fever which is subsided for 48 hours now, he is currently on IV vancomycin. Also he had acute hypoxic respiratory failure secondary to sepsis which is improved now. Increased troponin is thought due to demand/supply mismatch. Several consult is for embolic to the patient including infection disease, pulmonary, cardiothoracic surgery. Awning Maker signed off. This morning patient is complaining only for mild chest pain that comes and go, no coughing or dyspnea. No other complaints. 01/13/2020 Patient states that he has no more chest pain since yesterday, and he saw her throat looks better. No other new complaints. He still have low-grade temperature today of 100.1. Also patient found to have blasts in the blood and peripheral smear, he matology/oncology team were consulted. 01/14/2020 Patient has no chest pain except last night, no more chest pain today. His sore throat is improving. Patient is not dyspneic. He still had fever yesterday at 100.8. So patient is kept on IV antibiotics with IV vancomycin, ceftriaxone was added by infectious disease team. Hematology team evaluated the patient for blasts in the peripheral smear and they recommended bone marrow biopsy in 2-3 weeks as an outpatient. We will keep close monitoring. vitals and labs are stable 01/15/2020 Patient is awake. Vital signs stable. He still has fever today 99.7. Patient remains on ceftriaxone IV only for now. Hematology on the case and the recommended immunofixation studies and methyl malonyl which are pending, also recommended bone marrow biopsy which can be done as an outpatient, patient informed and he agrees. Objective - Vital Signs Vital signs: Vital Signs Temp 98.5 F 01/15/20 08:00 Pulse 70 01/15/20 08:00 Resp 18 01/15/20 08:00 BP 113/62 01/15/20 08:00 Pulse Ox 94 L 01/15/20 08:00 Intake & Output 01/14/20 01/15/20 01/15/20 18:59 06:59 18:59 Intake Total 240 Balance 240 Weight 81.3 kg 78 kg Intake: Oral 240 Other: Voiding Method Toilet Urinal # Voids 2 - Exam GENERAL: The patient is alert and oriented x3, not in any acute distress. Well developed, well nourished. HEENT: Pupils are round and equally reacting to light. EOMI. No scleral icterus. No conjunctival pallor. Normocephalic, atraumatic. No pharyngeal erythema. No thyromegaly. CARDIOVASCULAR: S1 and S2 present. No murmurs, rubs, or gallops. PULMONARY: Chest is clear to auscultation, no wheezing or crackles. ABDOMEN: Soft, nontender, nondistended, normoactive bowel sounds. No palpable organomegaly. MUSCULOSKELETAL: No joint swelling or deformity. EXTREMITIES: No cyanosis, clubbing, or pedal edema. NEUROLOGICAL: Gross neurological examination did not reveal any focal deficits. SKIN: No rashes. no petechiae. - Labs CBC & Chem 7: 01/13/20 07:32 01/12/20 10:49 Labs: Abnormal Lab Results - Last 24 Hours (Table) 01/12/20 01/13/20 Range/Units 10:49 07:32 Albumin (PEP) 3.00 L (3.80-4.90) g/dL Thuxc-4-Gqjtlfanq 0.45 H (0.10-0.40) g/dL Cxmyb-3-Vsmwpmjux 1.20 H (0.60-1.00) g/dL RBC Folate 1,014 H (280 - 791) ng/mL Microbiology - Last 24 Hours (Table) 01/09/20 18:43 Blood Culture - Preliminary Blood No Growth after 120 hours Assessment and Plan Assessment: -sepsis: Patient had Aortitis and mediastinitis on the CAT, ruled out COVID 19, infectious disease was consulted. Patient is on colchicine for inflammatory vasculitis, and is on broad-spectrum antibiotics for infectious aortitis does ap pear to have some tonsillitis blood cultures are still pending . He and his screen is negative, group B strep was also negative for calcitonin is within normal limits. C-reactive protein is very high. D-dimer is normal for his age -Peripheral blood blasts, follow-up with hematology/oncology -Elevated troponins: Probably related to sepsis patient's echocardiogram did not show any significant abnormality -pleuritic chest pain: Probably secondary to mediastinitis. Improved -Hypertension -Dyslipidemia -DVT prophylaxis Lovenox GI prophylaxis Pepcid
[2020-01-15 10:30] LABS: Methylmalonic Acid 0.22 umol/L (<0.40)
--- NOTE | 2020-01-15 16:09 | PN ---
PROGRESS NOTE DATE OF SERVICE: 01/15/2020 REASON FOR FOLLOWUP: Fever and a question of viral syndrome. INTERVAL HISTORY: Patient is currently afebrile. The patient has been feeling better. Breathing comfortably. Denies having any chest pain or shortness of breath or cough. No nausea, vomiting, abdominal pain or diarrhea. PHYSICAL EXAMINATION: Blood pressure 110/61 with a pulse of 71, temperature 98.5. He is 96% on room air. General description is an elderly male lying in bed in no distress. Respiratory system: Unlabored breathing. Clear to auscultation anteriorly. Heart S1, S2. Regular rate and rhythm. ABDOMEN: Soft. No tenderness. LABS: No new labs have been obtained today. Blood culture has been negative. DIAGNOSTIC IMPRESSION AND PLAN: Patient with fever with a question of lymphoproliferative disorder versus viral syndrome. Culture has been negative. The patient to finish therapy with oral Ceftin. Continue supportive care. MMODL / IJN: [id number] / JEFFRY
[2020-01-15] MEDS: ATORVASTATIN 40 MG TAB PO SCH (21:31)
[2020-01-16 08:27] VITALS: BP 114/64; PULSE 63; RESP 18; TEMP 98.1
[2020-01-16] MEDS: hydrOXYzine pamoate 25 MG CAP PO SCH (08:27)
[2020-01-16] MEDS: GABAPENTIN 400 MG CAP PO SCH (08:27)
[2020-01-16] MEDS: ENOXAPARIN 40 MG/0.4 ML SYRINGE SQ SCH (08:27)
[2020-01-16] MEDS: COLCHICINE 0.6 MG EACH PO SCH (08:27)
[2020-01-16] MEDS: FLUoxetine HCL 20 MG CAP PO SCH (08:28)
[2020-01-16] MEDS: ASPIRIN 325 MG TAB PO SCH (08:28)
[2020-01-16] MEDS: FAMOTIDINE 20 MG TAB PO SCH (08:28)
--- NOTE | 2020-01-16 14:59 | PN ---
PROGRESS NOTE DATE OF SERVICE: 01/16/2020 REASON FOR FOLLOWUP: Fever, possible lymphoproliferative disorder versus viral syndrome. INTERVAL HISTORY: The patient is currently afebrile. The patient is feeling better. Breathing comfortably. No chest pain or shortness of breath or cough. No nausea, no abdominal pain, no diarrhea. PHYSICAL EXAMINATION: Blood pressure 114/64 with a pulse of 63, temperature 98.1. General description is an elderly male up in the chair in no distress. Respiratory system: Unlabored breathing. Clear to auscultation anteriorly. Heart S1, S2. Regular rate and rhythm. Abdomen is soft, no tenderness. LABS: No new labs have been obtained today. Culture has been negative. DIAGNOSTIC IMPRESSION AND PLAN: Patient with fever with concern for possible viral syndrome versus and lymphoproliferative disorder with elevated bands. The patient is scheduled for a bone marrow biopsy in outpatient setting with the culture negative for resistant pathogen. May continue course of oral Ceftin on discharge and close outpatient followup. at the bedside. Questions were answered. MMODL / IJN: [id number] /
--- NOTE | 2020-01-16 22:58 | P.DS ---
Providers Date of admission: 01/11/20 11:56 Attending physician: Fantasma Chadwick MD Consults: 01/09/20 19:35 Consult Physician Urgent Consulting Provider: Fito Youngblood Consult Reason/Comments: elevated tropopnin Do you want consulting provider notified?: Yes 01/09/20 20:44 Consult Physician Routine Consulting Provider: Jad Mathur Consult Reason/Comments: mediastinitis? Do you want consulting provider notified?: Yes 01/10/20 10:55 Consult Physician Routine Consulting Provider: Elva Morrell Consult Reason/Comments: mediastinitis Do you want consulting provider notified?: Yes 01/10/20 18:12 Consult Physician Routine Consulting Provider: Nikhil Garzon Consult Reason/Comments: mediastinitis Do you want consulting provider notified?: Yes 01/12/20 15:46 Consult Physician Urgent Consulting Provider: Edwin Rees Consult Reason/Comments: Blasts on peropheral blood smear Do you want consulting provider notified?: Yes Primary care physician: [facility] Hospital Course: Diagnoses: -sepsis: Patient had Aortitis and mediastinitis on the CAT, ruled out COVID 19, improved with antibiotic. -Peripheral blood blasts, follow-up with Dr. Rees as an outpatient in 1 week for bone marrow biopsy -Elevated troponins: Probably related to sepsis patient's echocardiogram did not show any significant abnormality. Cardiology team cleared him for discharge -pleuritic chest pain: Probably secondary to mediastinitis. Resolved -Hypertension -Dyslipidemia Hospital course: 59-year-old pleasant male came in with the complaints of for fever chills sore throat body aches going on for 3 days. Patient was also complaining of some cough without any significant sputum production. Patient was also complaining of chest pain which appears to be pleuritic and I did have mildly elevated ca rdiac enzymes because of which radiologist was consulted. Cardiology evaluated the patient and patient chest pain is noncardiac in nature. 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 Patient was given broad-spectrum antibiotics subsequently admitted with consistent infectious disease and cardiology consults. Patient first received vancomycin, later on he received ceftriaxone, patient had no fever for more than 48 hours and he has no symptoms upon discharge, no chest pain no dyspnea, no dizziness, no abdominal pain, no nausea vomiting or change in urine or bowel habits. Patient was eager to go home today and follow-up as an outpatient. Patient will be discharged on Ceftin for 7 more days, recommended Also by infectious disease team. Peripheral blood smear showed blasts cells. Hematology/oncology team were consulted, initial workup was unremarkable and patient, was evaluated by rubber insulator team and cleared him for discharge, he was instructed to follow up with Dr. rees office for bone marrow biopsy. Both the patient and his son told me that going to call and make appointment. Problems and management plan were discussed with the patient and he verbalized understanding and acceptance Also I discussed the plan of care with his son Mr. Rahman at [phone], Discussed the case of his father with him upon patient request. He told me he will make sure that the patient will call tomorrow and make appointment with Dr. Rees for bone marrow biopsy area at risks including but not limited to cancer are explained for the patient and son and they verbalized understanding and acceptance with the patient Patient was found stable and can be discharged home in guarded prognosis however he needs follow-up as an outpatient. Patient was instructed to follow up with PCP Dr. Rodriguez within one week and patient agrees. He told me he can see Dr. Rodriguez within a few days, even after he retired he keeps follow-up with him at his house and they are like friends. Also patient and his son were instructed to follow up with Dr. Rees within one week and both patient and his son agreed to call and Make appointment and they understands the risks. Gen: patient is a AAOx3, no distress CVS: S1-S2, RRR, no murmur Lungs: B/L CTA, no wheezing Abdomen: soft, no distention, no tenderness, positive bowel sounds Extremity: no leg edema or induration Time spent more than 35 minutes Patient Condition at Discharge: Fair Plan - Discharge Summary Discharge Rx Participant: No New Discharge Prescriptions: New Aspirin 325 mg PO DAILY #30 tab Cefuroxime Axetil [Ceftin] 500 mg PO BID 7 Days #14 tab Colchicine [Colcrys] 0.6 mg PO BID 5 Days #10 each Famotidine [Pepcid] 20 mg PO BID 7 Days #14 tab Continue hydrOXYzine pamoate [Vistaril] 50 mg PO TID clonazePAM [KlonoPIN] 1 mg PO BID Gabapentin [Neurontin] 400 mg PO TID FLUoxetine HCL [PROzac] 40 mg PO DAILY Atorvastatin [Lipitor] 40 mg PO HS Discontinued lisinopriL [Zestril] 5 mg PO DAILY Discharge Medication List Atorvastatin [Lipitor] 40 mg PO HS 01/09/20 [History] FLUoxetine HCL [PROzac] 40 mg PO DAILY 01/09/20 [History] Gabapentin [Neurontin] 400 mg PO TID 01/09/20 [History] clonazePAM [KlonoPIN] 1 mg PO BID 01/09/20 [History] hydrOXYzine pamoate [Vistaril] 50 mg PO TID 01/09/20 [History] Aspirin 325 mg PO DAILY #30 tab 01/16/20 [Rx] Cefuroxime Axetil [Ceftin] 500 mg PO BID 7 Days #14 tab 01/16/20 [Rx] Colchicine [Colcrys] 0.6 mg PO BID 5 Days #10 each 01/16/20 [Rx] Famotidine [Pepcid] 20 mg PO BID 7 Days #14 tab 01/16/20 [Rx] Follow up Appointment(s)/Referral(s): Edwin Rees MD [STAFF PHYSICIAN] - 10 Days Fady Lemus DO [Primary Care Provider] - 1 Week Jad Mathur MD [STAFF PHYSICIAN] - 1 Week Elva Morrell MD [STAFF PHYSICIAN] - 2 Weeks Patient Instructions/Handouts: Angina (DC), Dyspnea (DC) Activity/Diet/Wound Care/Special Instructions: Heart healthy diet Activity is limited to till you see your doctor Discharge Disposition: HOME SELF-CARE
--- NOTE | 2020-01-18 01:28 | CDI ---
Documentation Clarification Form Date: 01/18/2020 From: Rigoberto Alvarado Phone: If you have a question about this query, please contact Tash Saenz, Bumper [employer] Painter at [phone] between 8am and 5pm. Admit Date: 01/11/2020 Discharge Date:01/16/2020 Patient Name: Flex Barrios Visit Number: [id number] ATTENTION: The Clinical Documentation Specialists (CDI) and [facility] Coding Staff appreciate your assistance in clarifying documentation. Please respond to the clarification below the line at the bottom and electronically sign. The CDI & [facility] Coding staff will review the response and follow-up if needed. Please note: Queries are made part of the Legal Health Record. If you have any questions, please contact the author of this message via ITS. Dear Zackary Bolanos MD., Conflicting documentation has been found in the medical record: Patient with fever with a question of lymphoproliferative disorder versus viral syndrome. History/Risk factors: Fever, mediastinitis HTN Radiology findings:Mild hypertrophy of the tonsils.No discrete fluid collection seen to suggest an abscess.Small left pleural effusion with bilateral pulmonary infiltrates and subsegmental atelectasis as above. Other tx: May continue course of oral Ceftin PER ID Notes(Jad Robert MD) 01/13 clinically not behaving as negative infection with all the cultures negative. 01/15 note Patient with fever with concern for possible viral syndrome versus and lymphoproliferative disorder with elevated bands. Per DS "-Sepsis: Patient had Aortitis and mediastinitis on the CAT, ruled out COVID 19,improved with antibiotic". In your opinion, what is the most clinically appropriate diagnosis for this patient? Sepsis Lymphoproliferative disorder vs viral syndrome Both(sepsis and Lymphoproliferative disorder) Other, Please Specify Patient had sepsis secondary to mediastinitis/aortitis. Differential diagnosis viral syndrome Also patient most likely has blood disorder, secondary to glass in the peripheral smear. Need further evaluation for final diagnoses. MTDD
== END 2020-01-16 13:32 | disposition home or self-care (01) | DRG 871 ==
LOC: EC 17:32 → 3SCARD 19:37 → OBSVTOIN 01-11 11:56
PROVIDERS: ADMIT Internal Medicine; ATTEND Internal Medicine
DX: A41.9 Sepsis, unspecified organism (principal); J96.01 Acute respiratory failure with hypoxia; J98.51 Mediastinitis; B34.9 Viral infection, unspecified; D75.89 Other specified diseases of blood and blood-forming organs; Z20.828 Contact with and (suspected) exposure to other viral communicable diseases; J44.9 Chronic obstructive pulmonary disease, unspecified; F32.9 Major depressive disorder, single episode, unspecified; F41.9 Anxiety disorder, unspecified; E78.5 Hyperlipidemia, unspecified; J35.1 Hypertrophy of tonsils; I77.6 Arteritis, unspecified; I10 Essential (primary) hypertension; D75.9 Disease of blood and blood-forming organs, unspecified; K29.70 Gastritis, unspecified, without bleeding; Z87.891 Personal history of nicotine dependence; Z86.73 Personal history of transient ischemic attack (TIA), and cerebral infarction without residual deficits; Z79.899 Other long term (current) drug therapy; Z87.09 Personal history of other diseases of the respiratory system
CPT/HCPCS: 36415; 70491; 71046; 71260; 71275; 76705; 80048; 80053; 80061; 80202; 82607; 82728; 82747; 83540; 83550; 83605; 83615; 83880; 83883; 83921; 84145; 84165; 84484; 85025; 85027; 85379; 85610; 85652; 85730; 86038; 86140; 86334; 87040; 87081; 87430; 87502; 93005; 93306; 99285

== ENCOUNTER → 2020-02-11 | Day surgery (SDC) | payer MEDICARE, OTHER ==
[2020-02-11 11:52] VITALS: BP 141/75; PULSE 73; RESP 18; TEMP 97.9
--- NOTE | 2020-02-11 13:20 | IR ---
EXAMINATION TYPE: IR cvc insert >=5 years DATE OF EXAM: 02/11/2020 COMPARISON: NONE CLINICAL HISTORY: Chemotherapy, IV access SHOWER ROOM ATTENDANT: Dr. Tiffani South PROCEDURE: The procedure was discussed with the patient. The risks, complications, benefits, and alternatives we re discussed and any questions were answered. Informed consent was obtained. The patient was placed supine. Maximal barrier technique utilized. After informed consent, the skin o verlying the left basilic vein was localized with ultrasound and noted to be compressible and patent. An ultrasound image was obtained and submitted on the patient's chart. Sterile technique utilized w ith the ultrasound machine. The skin overlying was prepped and draped and Lidocaine used for local an esthesia. Access was gained to the vein under ultrasound guidance with a 21 gauge needle and a 0.018 inch wire was advanced. A skin edith was made with a scalpel. Access site was dilated with Peel-Away s zoë. 5 FR dual lumen catheter tailored to the appropriate length of 46 cm and advanced such that th e distal tip is at the cavoatrial junction. Spot image was obtained verifying PICC placement. Cathete r was fixed to the skin and a sterile dressing was placed following hemostasis. Catheter was aspirate d and flushed with saline. Patient was discharged from the radiology department in stable condition w ithout immediate complication. Fluoro time: 0.4 minutes Fluoroscopic images obtained: 13 IMPRESSION: Status post ultrasound-guided and fluoroscopic-guided PICC placement, ready for use.
== END ==
LOC: CATHCVL 11:39
PROVIDERS: ATTEND Radiology Diagnostic Radiology
DX: C92.00 Acute myeloblastic leukemia, not having achieved remission (principal); D46.9 Myelodysplastic syndrome, unspecified; I87.2 Venous insufficiency (chronic) (peripheral); I10 Essential (primary) hypertension; E78.00 Pure hypercholesterolemia, unspecified; Z79.82 Long term (current) use of aspirin; Z79.899 Other long term (current) drug therapy; Z98.890 Other specified postprocedural states; Z87.09 Personal history of other diseases of the respiratory system; Z87.891 Personal history of nicotine dependence
CPT/HCPCS: 36573; C1751; C1769

== ENCOUNTER 2020-02-26 18:45 | Inpatient (IN) | payer MEDICARE, OTHER ==
[2020-02-26] MEDS ORDERED: SODIUM CHLORIDE 0.9% 1,000 ML IV STA (19:02)
--- NOTE | 2020-02-26 19:07 | ED ---
General Adult HPI - General Chief complaint: Fever Stated complaint: cancer pt, vomiting Time Seen by Provider: 02/26/20 18:58 Source: patient Mode of arrival: ambulatory Limitations: no limitations - History of Present Illness Initial comments: Patient presents the ED complaining of having a fever, central abdominal pain, nausea and vomiting since this morning. Patient states that he is being treated for leukemia, and he states that he had his last chemotherapy treatment yesterday. Patient states that he took a dose of Tylenol about 3 hours ago. Patient denies known sick contact, headache, neck pain or stiffness, sore throat, cough or cold symptoms, chest pain, dyspnea, dizziness, back or flank pain, diarrhea or constipation, bloody or melanotic stool, hematemesis, dysuria/hematuria/urinary frequency/urinary symptoms, or any other symptoms or complaints. - Related Data Home Medications Medication Instructions Recorded Confirmed Atorvastatin [Lipitor] 40 mg PO DAILY 01/09/20 02/26/20 FLUoxetine HCL [PROzac] 40 mg PO DAILY 01/09/20 02/26/20 Gabapentin [Neurontin] 400 mg PO TID 01/09/20 02/26/20 clonazePAM [KlonoPIN] 1 mg PO BID 01/09/20 02/26/20 hydrOXYzine pamoate [Vistaril] 50 mg PO TID 01/09/20 02/26/20 Acetaminophen [Tylenol] 650 mg PO Q4H PRN 02/26/20 02/26/20 Omeprazole 20 mg PO DAILY 02/26/20 02/26/20 Ondansetron [Zofran] 4 mg PO Q6H PRN 02/26/20 02/26/20 lisinopriL [Zestril] 5 mg PO DAILY 02/26/20 02/26/20 methylPREDNISolone [Medrol Dose See Taper PO DIRECTED 02/26/20 02/26/20 Pack] Allergies Allergy/AdvReac Type Severity Reaction Status Date / Time No Known Allergies Allergy Verified 02/26/20 20:31 Review of Systems ROS Statement: Those systems with pertinent positive or pertinent negative responses have been documented in the HPI. ROS Other: All systems not noted in ROS Statement are negative. Past Medical History Past Medical History: CVA/TIA, Hyperlipidemia, Hypertension Additional Past Medical History / Comment(s): Left-sided spontaneous pneuomthorax; hemorrhagic stroke; left carotid stenosis 50% History of Any Multi-Drug Resistant Organisms: None Reported Additional Past Surgical History / Comment(s): ACL replacement, PICC Past Anesthesia/Blood Transfusion Reactions: No Reported Reaction Past Psychological History: Anxiety, Depression Smoking Status: Former smoker Past Alcohol Use History: None Reported Past Drug Use History: None Reported - Past Family History Father Family Medical History: Unable to Obtain Additional Family Medical History / Comment(s): Unable to attain family medical history as patient was adopted General Exam Limitations: no limitations General appearance: alert, in no apparent distress Head exam: Present: atraumatic, normocephalic Eye exam: Present: normal appearance, EOMI ENT exam: Present: normal oropharynx, mucous membranes moist Neck exam: Present: other (trachea is in midline). Absent: tenderness, meningismus Respiratory exam: Present: normal lung sounds bilaterally. Absent: respiratory distress, wheezes, rales, rhonchi Cardiovascular Exam: Present: regular rate, normal rhythm, normal heart sounds, other (normal radial pulses bilaterally) GI/Abdominal exam: Present: soft, normal bowel sounds, other (mild epigastric and periumbilical tenderness on examination). Absent: distended, guarding, rebound Extremities exam: Absent: tenderness, pedal edema, calf tenderness Back exam: Absent: CVA tenderness (R), CVA tenderness (L) Neurological exam: Present: alert, oriented X3. Absent: motor sensory deficit Psychiatric exam: Present: normal affect, normal mood Skin exam: Present: warm, dry, intact, normal color Course Vital Signs 02/26/20 02/26/20 18:47 20:50 Temperature 102.6 F H 102.3 F H Pulse Rate 102 H 110 H Respiratory 18 20 Rate Blood Pressure 139/81 126/69 O2 Sat by Pulse 99 98 Oximetry - Reevaluation(s) Reevaluation #1: 02/26/20 21:00 Case, H&P, test results and ED management thus far were discussed with MO Yang. He accepts hospital admission on behalf of himself and Dr. Coy. He has no further recommendations at time. 02/26/20 21:06 Patient remains alert and breathing comfortably with a normal room air oxygen saturation. Patient is normotensive. Patient states that his pain and nausea have improved with ED treatment, and he denies development of any new symptoms while in the ED. Patient is aware of his test results, and he agrees with hospital admission at this time. Medical Decision Making - Medical Decision Making Patient denies having a cough or dyspnea, and his chest x-ray is unremarkable, but he is noted to have some basilar infiltrates on CT, so pneumonia may be a possible cause of his fever. Patient's CT abdomen/pelvis is otherwise unremarkable. Patient's Covid study is negative. No other definite source of the patient's fever has been identified. Patient was treated in the ED with IV c efepime for neutropenic fever. An order was also placed for transfusion of 2 units of packed RBCs. MO Friend has accepted hospital admission on behalf of Dr. Coy. - Lab Data Result diagrams: 02/26/20 19:13 02/26/20 19:13 Lab Results 02/26/20 02/26/20 02/26/20 Range/Units 19:13 19:13 19:13 WBC 1.4 L* (3.8-10.6) k/uL RBC 1.56 L (4.30-5.90) m/uL Hgb 5.1 L* D (13.0-17.5) gm/dL Hct 15.1 L* (39.0-53.0) % MCV 96.6 (80.0-100.0) fL MCH 32.5 (25.0-35.0) pg MCHC 33.6 (31.0-37.0) g/dL RDW 15.2 (11.5-15.5) % Plt Count 55 L D (150-450) k/uL Neutrophils % (Manual) 36 % Lymphocytes % (Manual) 26 % Monocytes % (Manual) 36 % Blast Cells % 2 H* % Neutrophils # (Manual) 0.50 L (1.3-7.7) k/uL Lymphocytes # (Manual) 0.36 L (1.0-4.8) k/uL Monocytes # (Manual) 0.50 (0-1.0) k/uL Blast Cells # (Man) 0.03 H (0) k/uL Nucleated RBCs 0 (0-0) /100 WBC Manual Slide Review Performed Sodium 136 L (137-145) mmol/L Potassium 4.0 (3.5-5.1) mmol/L Chloride 104 (98-107) mmol/L Carbon Dioxide 23 (22-30) mmol/L Anion Gap 9 mmol/L BUN 20 (9-20) mg/dL Creatinine 0.85 (0.66-1.25) mg/dL Est GFR (CKD-EPI)AfAm >90 (>60 ml/min/1.73 sqM) Est GFR (CKD-EPI)NonAf >90 (>60 ml/min/1.73 sqM) Glucose 127 H (74-99) mg/dL Calcium 8.1 L (8.4-10.2) mg/dL Total Bilirubin 0.7 (0.2-1.3) mg/dL AST 23 (17-59) U/L ALT 16 (4-49) U/L Alkaline Phosphatase 96 (38-126) U/L Total Protein 7.1 (6.3-8.2) g/dL Albumin 3.7 (3.5-5.0) g/dL Coronavirus (PCR) Not Detected (Not Detectd) Blood Type Recheck Bld Type Recheck Status Spec Expiration Date 02/26/20 Range/Units 20:15 WBC (3.8-10.6) k/uL RBC (4.30-5.90) m/uL Hgb (13.0-17.5) gm/dL Hct (39.0-53.0) % MCV (80.0-100.0) fL MCH (25.0-35.0) pg MCHC (31.0-37.0) g/dL RDW (11.5-15.5) % Plt Count (150-450) k/uL Neutrophils % (Manual) % Lymphocytes % (Manual) % Monocytes % (Manual) % Blast Cells % % Neutrophils # (Manual) (1.3-7.7) k/uL Lymphocytes # (Manual) (1.0-4.8) k/uL Monocytes # (Manual) (0-1.0) k/uL Blast Cells # (Man) (0) k/uL Nucleated RBCs (0-0) /100 WBC Manual Slide Review Sodium (137-145) mmol/L Potassium (3.5-5.1) mmol/L Chloride (98-107) mmol/L Carbon Dioxide (22-30) mmol/L Anion Gap mmol/L BUN (9-20) mg/dL Creatinine (0.66-1.25) mg/dL Est GFR (CKD-EPI)AfAm (>60 ml/min/1.73 sqM) Est GFR (CKD-EPI)NonAf (>60 ml/min/1.73 sqM) Glucose (74-99) mg/dL Calcium (8.4-10.2) mg/dL Total Bilirubin (0.2-1.3) mg/dL AST (17-59) U/L ALT (4-49) U/L Alkaline Phosphatase (38-126) U/L Total Protein (6.3-8.2) g/dL Albumin (3.5-5.0) g/dL Coronavirus (PCR) (Not Detectd) Blood Type Recheck No Previous Record Bld Type Recheck Status CABO Indicated Spec Expiration Date 02/29/2020 - 9340 - Radiology Data Radiology results: report reviewed (CT abdomen/pelvis with IV contrast: Mild interstitial infiltrates and atelectasis at the lung bases, normal appendix, no acute abnormality in the abdomen and pelvis), image reviewed (chest x-ray is negative) Disposition Clinical Impression: Abdominal pain, Vomiting, Anemia, Leukopenia, Thrombocytopenia, Neutropenic fever Narrative: Possible pneumonia Disposition: ADMITTED IP TO THIS [facility] Condition: Stable Is patient prescribed a controlled substance at d/c from ED?: No Referrals: Fady Lemus DO [Primary Care Provider] - 1-2 days Time of Disposition: 21:01
[2020-02-26 19:26] LABS: MCH 32.5 pg (25.0-35.0); MCHC 33.6 g/dL (31.0-37.0); MCV 96.6 fL (80.0-100.0); Mean Platelet Volume 7.4; RBC 1.56 m/uL (4.30-5.90); RDW 15.2 % (11.5-15.5)
[2020-02-26 19:38] LABS: ALT 16 U/L (4-49); AST 23 U/L (17-59); African American GFR (CKD) >90 (>60 ml/min/1.73 sqM); Albumin 3.7 g/dL (3.5-5.0); Alkaline Phosphatase 96 U/L (38-126); Anion Gap 9 mmol/L; Blood Urea Nitrogen 20 mg/dL (9-20); Calcium 8.1 mg/dL (8.4-10.2); Carbon Dioxide 23 mmol/L (22-30); Chloride 104 mmol/L (98-107); Glucose 127 mg/dL (74-99); Non-African American GFR(CKD) >90 (>60 ml/min/1.73 sqM); Sodium 136 mmol/L (137-145); Total Bilirubin 0.7 mg/dL (0.2-1.3); Total Protein 7.1 g/dL (6.3-8.2)
[2020-02-26 19:48] LABS: WBC 1.4 k/uL (3.8-10.6)
[2020-02-26 19:49] LABS: HCT 15.1 % (39.0-53.0); HGB 5.1 gm/dL (13.0-17.5); Platelet Count 55 k/uL (150-450)
--- NOTE | 2020-02-26 20:17 | CT ---
EXAMINATION TYPE: CT abdomen pelvis w con DATE OF EXAM: 02/26/2020 COMPARISON: HISTORY: Abdominal pain, vomiting and fever post chemotherapy. CT DLP: 1058.3 mGycm Automated exposure control for dose reduction was used. CONTRAST: Performed with IV Contrast, patient injected with 100ml mL of Isovue 300. There is some mild atelectasis at the lung bases. There is no pericardial effusion. There is no pleur al effusion. Liver spleen stomach pancreas gallbladder appear intact. Bile ducts are not dilated. There is no adrenal mass. Kidneys show satisfactory contrast opacification. There is no hydronephrosi s. Ureters are not dilated. Delayed images show normal renal excretion. There is no retroperitoneal a denopathy. Bladder distends smoothly. There is left side small inguinal hernia containing fat. There are multiple sigmoid diverticula. There is no sign of diverticulitis. Appendix appears normal. There is no mesenteric edema. There is no ascites or free air. There is no bowel obstruction. Bony pe lvis is intact. Proximal femurs are intact. Lumbar spine is intact. Sacroiliac joints appear normal. IMPRESSION: There is some mild interstitial infiltrate and atelectasis at the lung bases. Normal appendix. No acu te abnormality within the abdomen pelvis.
[2020-02-26 20:19] LABS: Lymphocytes # (M) 0.36 k/uL (1.0-4.8); Neutrophils % (M) 36 %
[2020-02-26 20:21] LABS: Blast Cells # (M) 0.03 k/uL (0); Nucleated Red Blood Cells 0 /100 WBC (0-0); Total Cells Counted 100
[2020-02-26] MEDS ORDERED: CEFEPIME 2 GM in SODIUM CHLORIDE 0.9% 100 ML IVPB STA (20:49)
[2020-02-26] MEDS ORDERED: ACETAMINOPHEN TAB 500 MG TAB PO STA (20:49)
--- NOTE | 2020-02-26 21:00 | XR ---
EXAMINATION TYPE: XR chest 1V portable DATE OF EXAM: 02/26/2020 COMPARISON: 01/09/2020 HISTORY: Fever TECHNIQUE: FINDINGS: Heart and mediastinum are normal. Lungs are clear. Diaphragm is normal. There is no evidenc e of pulmonary consolidation. There is no pleural effusion. There is left subclavian catheter with ti p in the superior vena cava. IMPRESSION: No active cardiopulmonary disease. No change.
[2020-02-26] MEDS ORDERED: NALOXONE 0.4 MG/ML 1 ML VIAL IV PRN (21:02)
[2020-02-26 21:26] LABS: Appearance,Urine Clear (Clear); Bilirubin,Urine Negative (Negative); Blood,Urine Small (Negative); Color,Urine Yellow; Glucose,Urine (UA) Negative (Negative); Ketones,Urine Negative (Negative); Leukocyte Esterase,Urine Negative (Negative); Mucus,Urine Rare /hpf; Nitrite,Urine Negative (Negative); Protein,Urine Trace (Negative); RBC,Urine 6 /hpf (0-5); Specific Gravity,Urine 1.041 (1.001-1.035); Squamous Epithelial Cell,Urine <1 /hpf (0-4); Urobilinogen,Urine <2.0 mg/dL (<2.0); WBC,Urine 2 /hpf (0-5)
[2020-02-26] MEDS: SODIUM CHLORIDE 0.9% 1,000 ML IV SCH (22:52)
[2020-02-26] MEDS: GABAPENTIN 400 MG CAP PO SCH (23:04)
[2020-02-27] MEDS: hydrOXYzine HCL 25 MG TAB PO SCH ×4 (00:09→22:05)
[2020-02-27] MEDS: ACETAMINOPHEN TAB 325 MG TAB PO PRN ×3 (01:39→19:25)
[2020-02-27 06:02] LABS: HCT 28.8 % (39.0-53.0); MCH 31.6 pg (25.0-35.0); MCHC 33.2 g/dL (31.0-37.0); MCV 95.2 fL (80.0-100.0); Mean Platelet Volume 7.5; Platelet Count 35 k/uL (150-450); RBC 3.02 m/uL (4.30-5.90); RDW 15.3 % (11.5-15.5)
[2020-02-27 06:07] LABS: WBC 1.1 k/uL (3.8-10.6)
[2020-02-27 06:08] LABS: HGB 9.5 gm/dL (13.0-17.5)
[2020-02-27 06:11] LABS: Albumin 3.2 g/dL (3.5-5.0); Calcium 7.7 mg/dL (8.4-10.2); Potassium 4.3 mmol/L (3.5-5.1); Total Protein 6.3 g/dL (6.3-8.2)
[2020-02-27 07:12] LABS: Lymphocytes # (M) 0.62 k/uL (1.0-4.8); Monocytes # (M) 0.21 k/uL (0-1.0); Neutrophils # (M) 0.23 k/uL (1.3-7.7); Neutrophils % (M) 21 %
[2020-02-27 07:13] LABS: Blast Cells # (M) 0.04 k/uL (0); Nucleated Red Blood Cells 0 /100 WBC (0-0); Total Cells Counted 200
[2020-02-27] MEDS ORDERED: PANTOPRAZOLE 40 MG TABLET PO SCH (07:30)
[2020-02-27] MEDS: GABAPENTIN 400 MG CAP PO SCH ×3 (09:18→22:04)
[2020-02-27] MEDS: ATORVASTATIN 40 MG TAB PO SCH (09:18)
[2020-02-27] MEDS: lisinopriL 5 MG TAB PO SCH (09:18)
[2020-02-27] MEDS: clonazePAM 1 MG TAB PO SCH ×2 (09:18→20:42)
[2020-02-27] MEDS: FLUoxetine HCL 20 MG CAP PO SCH (09:18)
[2020-02-27] MEDS ORDERED: ONDANSETRON 4 MG TAB PO PRN (10:11)
[2020-02-27] MEDS ORDERED: HYDROmorphone 0.5 MG/0.5 ML SYRINGE IVP PRN (10:12)
[2020-02-27] MEDS ORDERED: VANCOMYCIN IV PER PHARMACY 1 EACH MISC MISCELLANE PRN (10:13)
[2020-02-27] MEDS ORDERED: TEMAZEPAM 15 MG CAP PO PRN (10:14)
[2020-02-27] MEDS ORDERED: ALPRAZolam 0.25 MG TAB PO PRN (10:14)
[2020-02-27] MEDS ORDERED: CEFEPIME 2 GM in SODIUM CHLORIDE 0.9% 100 ML IVPB SCH (10:15)
[2020-02-27] MEDS: CEFEPIME 2 GM in SODIUM CHLORIDE 0.9% 100 ML IVPB SCH ×3 (11:19→23:29)
[2020-02-27] MEDS: NYSTATIN 100,000 UNIT/ML SUSP 500,000 UNIT/5 ML CUP PO SCH ×3 (11:20→22:41)
[2020-02-27] MEDS: FLUCONAZOLE 100 MG TAB PO SCH (11:20)
[2020-02-27] MEDS: VANCOMYCIN 1,500 MG in SODIUM CHLORIDE 0.9% 250 ML IVPB SCH (12:24)
[2020-02-27] MEDS: SODIUM CHLORIDE 0.9% 1,000 ML IV SCH (12:27)
[2020-02-27 12:51] LABS: Appearance,Urine Clear (Clear); Bilirubin,Urine Negative (Negative); Blood,Urine Small (Negative); Color,Urine Yellow; Glucose,Urine (UA) Negative (Negative); Ketones,Urine Negative (Negative); Leukocyte Esterase,Urine Negative (Negative); Mucus,Urine Rare /hpf; Nitrite,Urine Negative (Negative); Protein,Urine 1+ (Negative); RBC,Urine 7 /hpf (0-5); Specific Gravity,Urine 1.026 (1.001-1.035); Squamous Epithelial Cell,Urine <1 /hpf (0-4); Urobilinogen,Urine <2.0 mg/dL (<2.0); WBC,Urine 2 /hpf (0-5)
--- NOTE | 2020-02-27 18:46 | P.CONS ---
History of Present Illness - Reason for Consult Consult date: 02/27/20 Fever - Chief Complaint Fever, Fatigue, Nausea - History of Present Illness Mr Chand is a pleasant white male, initially seen in consult at [facility] on 01/13/20. It come into the hospital complaining of fever, chills, with cough and chest discomfort. The patient was less than 101. Cardiac ischemia was rule out. He had a CTA of the chest that was negative for PE, or dissection but did show some abnormal mediastinal density. The patient was seen back in the thoracic surgery indicated that these findings were nonspecific and did not recommend further workup. He was also placed on antibiotics by ID with resolution of symptoms. CBC on admission showed 6% blasts with other indices essentially normal. As this finding persisted patient had additional labs done, that were negative. He then underwent a bone marrow aspiration biopsy on 01/19/20. 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 Flow cytometry actually showed about 40% blasts. 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 AML fish was negative. 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 He was referred to the [facility], [place] and seen by Dr Kowalski. Case was d/w him. Induction chemo with Vyxeos was recommended. He was started on Vyxeos and completed infuction day 5 of cycle one on 02[facility]24. [facility] with complaints of nausea, vomiting, diarrhea and high fevers 102-102.4. Referred to emergency. Melissa culture work-up in progress, Broad spectrum antibiotics, and was still with fevers this am. Antifungal and Antivirals added and will plan to continue prophylaxis at discharge for patient with this degree of prolonged immunocompression. He denies any bleeding, pain, sob, nausea or vomiting today. Last fever this am 10:30 T max 102 Review of Systems All systems: negative Constitutional: Reports as per HPI Past Medical History Past Medical History: CVA/TIA, Hyperlipidemia, Hypertension Additional Past Medical History / Comment(s): Left-sided spontaneous pneuomthorax; hemorrhagic stroke; left carotid stenosis 50% History of Any Multi-Drug Resistant Organisms: None Reported Additional Past Surgical History / Comment(s): ACL replacement, PICC Past Anesthesia/Blood Transfusion Reactions: No Reported Reaction Past Psychological History: Anxiety, Depression Smoking Status: Former smoker Past Alcohol Use History: None Reported Additional Past Alcohol Use History / Comment(s): smoked a pack a day for 25 years Past Drug Use History: None Reported - Past Family History Father Family Medical History: Unable to Obtain Additional Family Medical History / Comment(s): Unable to attain family medical history as patient was adopted Medications and Allergies Home Medications Medication Instructions Recorded Confirmed Type Atorvastatin [Lipitor] 40 mg PO DAILY 01/09/20 02/26/20 History FLUoxetine HCL [PROzac] 40 mg PO DAILY 01/09/20 02/26/20 History Gabapentin [Neurontin] 400 mg PO TID 01/09/20 02/26/20 History clonazePAM [KlonoPIN] 1 mg PO BID 01/09/20 02/26/20 History hydrOXYzine pamoate [Vistaril] 50 mg PO TID 01/09/20 02/26/20 History Acetaminophen [Tylenol] 650 mg PO Q4H PRN 02/26/20 02/26/20 History Omeprazole 20 mg PO DAILY 02/26/20 02/26/20 History Ondansetron [Zofran] 4 mg PO Q6H PRN 02/26/20 02/26/20 History lisinopriL [Zestril] 5 mg PO DAILY 02/26/20 02/26/20 History methylPREDNISolone [Medrol Dose See Taper PO DIRECTED 02/26/20 02/26/20 History Pack] Allergies Allergy/AdvReac Type Severity Reaction Status Date / Time No Known Allergies Allergy Verified 02/26/20 20:31 Physical Exam Vitals: Vital Signs Temp Pulse Pulse Resp BP BP Pulse Ox 02/27/20 08:06 102.3 F H 02/27/20 05:29 101.4 F H 93 14 121/72 97 02/27/20 04:22 101.5 F H 96 14 116/70 96 02/27/20 03:52 101.2 F H 98 14 105/63 95 02/27/20 03:42 101.4 F H 99 14 106/64 94 L 02/27/20 03:00 102.0 F H 101 H 16 111/65 95 02/27/20 01:26 101.0 F H 100 14 117/73 98 02/27/20 00:56 101.0 F H 100 16 119/70 99 02/27/20 00:46 102.1 F H 99 16 110/61 99 02/27/20 00:05 14 02/26/20 22:45 100.3 F H 99 14 113/61 97 02/26/20 22:21 101.8 F H 103 H 18 99/52 96 02/26/20 20:50 102.3 F H 110 H 20 126/69 98 02/26/20 18:47 102.6 F H 102 H 18 139/81 99 Intake and Output 02/26/20 02/27/20 02/27/20 22:59 06:59 14:59 Intake Total 360 1500 Output Total 400 Balance 360 1100 Intake: Intake, IV Titration 60 480 Amount Sodium Chloride 0.9% 1, 60 480 000 ml @ 60 mls/hr IV . [id number] [facility] Rx#:[id number] Oral 300 400 Blood Product 620 Rc As-3 Unit 310 [id number] Rc Pheresis As-3 Unit 310 [id number] Output: Urine 400 Other: Voiding Method Urinal Urinal Weight 82.554 kg Telemedicine No distress Voice is clear No increased respiratory effort over phone Patient admits to white coating in moith and red sore throat no bleeding or excess bruising No swelling Results CBC & Chem 7: 02/27/20 05:22 02/27/20 05:22 Labs: Abnormal Lab Results - Last 24 Hours (Table) 02/26/20 02/26/20 02/26/20 Range/Units 19:13 19:13 19:13 WBC 1.4 L* (3.8-10.6) k/uL RBC 1.56 L (4.30-5.90) m/uL Hgb 5.1 L* D (13.0-17.5) gm/dL Hct 15.1 L* (39.0-53.0) % Plt Count 55 L D (150-450) k/uL Blast Cells % 2 H* % Neutrophils # (Manual) 0.50 L (1.3-7.7) k/uL Lymphocytes # (Manual) 0.36 L (1.0-4.8) k/uL Blast Cells # (Man) 0.03 H (0) k/uL Sodium 136 L (137-145) mmol/L Glucose 127 H (74-99) mg/dL Plasma Lactic Acid Gonsalo (0.7-2.0) mmol/L Calcium 8.1 L (8.4-10.2) mg/dL Albumin (3.5-5.0) g/dL Ur Specific Liguori 1.041 H (1.001-1.035) Urine Protein Trace H (Negative) Urine Blood Small H (Negative) Urine RBC 6 H (0-5) /hpf Urine Mucus Rare H (None) /hpf Crossmatch 02/26/20 02/26/20 02/27/20 Range/Units 19:13 20:15 05:22 WBC 1.1 L* (3.8-10.6) k/uL RBC 3.02 L (4.30-5.90) m/uL Hgb 9.5 L D (13.0-17.5) gm/dL Hct 28.8 L (39.0-53.0) % Plt Count 35 L (150-450) k/uL Blast Cells % 4 H* % Neutrophils # (Manual) 0.23 L* (1.3-7.7) k/uL Lymphocytes # (Manual) 0.62 L (1.0-4.8) k/uL Blast Cells # (Man) 0.04 H (0) k/uL Sodium (137-145) mmol/L Glucose (74-99) mg/dL Plasma Lactic Acid Gonsalo 2.4 H* (0.7-2.0) mmol/L Calcium (8.4-10.2) mg/dL Albumin (3.5-5.0) g/dL Ur Specific Liguori (1.001-1.035) Urine Protein (Negative) Urine Blood (Negative) Urine RBC (0-5) /hpf Urine Mucus (None) /hpf Crossmatch See Detail 02/27/20 Range/Units 05:22 WBC (3.8-10.6) k/uL RBC (4.30-5.90) m/uL Hgb (13.0-17.5) gm/dL Hct (39.0-53.0) % Plt Count (150-450) k/uL Blast Cells % % Neutrophils # (Manual) (1.3-7.7) k/uL Lymphocytes # (Manual) (1.0-4.8) k/uL Blast Cells # (Man) (0) k/uL Sodium 133 L (137-145) mmol/L Glucose 108 H (74-99) mg/dL Plasma Lactic Acid Gonsalo (0.7-2.0) mmol/L Calcium 7.7 L (8.4-10.2) mg/dL Albumin 3.2 L (3.5-5.0) g/dL Ur Specific Liguori (1.001-1.035) Urine Protein (Negative) Urine Blood (Negative) Urine RBC (0-5) /hpf Urine Mucus (None) /hpf Crossmatch Chest x-ray: report reviewed CT scan - abdomen: report reviewed CT scan - pelvis: report reviewed Assessment and Plan (1) Anemia Current Visit: Yes Status: Acute Code(s): D64.9 - ANEMIA, UNSPECIFIED SNOMED Code(s): 610706884 (2) Neutropenic fever Current Visit: Yes Status: Acute Code(s): D70.9 - NEUTROPENIA, UNSPECIFIED; R50.81 - FEVER PRESENTING WITH CONDITIONS CLASSIFIED ELSEWHERE SNOMED Code(s): 101863649 (3) Thrombocytopenia Current Visit: Yes Status: Acute Code(s): D69.6 - THROMBOCYTOPENIA, UNSPECIFIED SNOMED Code(s): 636671212 Plan: AML Febrile Neutropenia: - T-Max 102.4 - Melissa Cultures Pending - COVID Neg - Influenza Pending - Broad spectrum abx, anti-fungal added after no decrease in fevers this am, prophylaxis acyclovir added - COnsult placed for Dr. Mathur to manage - Prophylaxis at discharge secondary to proplonged neutropenia anticpated with AML and initiation of induction Severe Anemia: - Hemoglobin 5.1 on admission - Status POst Transfusion - Irradiated blood products only - CMV antibodies pending, until resulted please confirm cmv negative blood Thrombocytopenia: - No anticoagulation, NSAIDS, NO aspirin less than 50K - Monitor for bleeding - PLease check baseline coags Telemedicine visit today with permission of patient. Physical exam via factime with patient, greater than 24 minutes reviewing all medical pertinent information and discussion with patient.
[2020-02-27 19:49] LABS: Reticulocyte % 0.2 % (0.5-2.0)
[2020-02-27] MEDS: PANTOPRAZOLE 40 MG/10 ML VIAL IVP SCH (20:42)
[2020-02-27] MEDS: ACYCLOVIR 200 MG CAP PO SCH (22:04)
--- NOTE | 2020-02-27 22:20 | P.CONS ---
History of Present Illness - Reason for Consult Consult date: 02/27/20 Febrile neutropenia Requesting physician: Samson Coy - Chief Complaint Fever and vomiting 1 day - History of Present Illness Patient is a 69 year male with a past medical history significant for a acute myeloid leukemia. The patient is currently undergoing chemotherapy through the left arm PICC line placed on 02/11/2020 patient has been on chemo with last chemo the day before presentation to the hospital patient is also develop a rash which has been attributed to the chemotherapy, patient is now presenting to the ER yesterday evening for evaluation of fever nausea and vomiting that apparently started the day of presentation to the hospital patient did have multiple episodes of vomiting and is complaining of some epigastric discomfort more of a burning pain 5 out of 10 and no radiation, the patient denies having any diarrhea denies having any headache no chest pain or shortness minimal cough and no urinary symptoms, with his symptoms the patient presented to the hospital on arrival to the repeated have fever of 103F patient did have leukopenia, liver enzymes were normal urine was negative, PCR negative CT of abdominal pelvis did show some basilar infiltrate but no intra-abdominal abnormality patient has been started on cefepime and vancomycin he has been admitted to the hospital infectious disease was consulted for further management of antibiotic therapy Review of Systems Positive point has been mentioned in the HPI rest of the systems are negative Past Medical History Past Medical History: CVA/TIA, Hyperlipidemia, Hypertension Additional Past Medical History / Comment(s): Left-sided spontaneous pneuomthorax; hemorrhagic stroke; left carotid stenosis 50% History of Any Multi-Drug Resistant Organisms: None Reported Additional Past Surgical History / Comment(s): ACL replacement, PICC Past Anesthesia/Blood Transfusion Reactions: No Reported Reaction Past Psychological History: Anxiety, Depression Smoking Status: Former smoker Past Alcohol Use History: None Reported Additional Past Alcohol Use History / Comment(s): smoked a pack a day for 25 years Past Drug Use History: None Reported - Past Family History Father Family Medical History: Unable to Obtain Additional Family Medical History / Comment(s): Unable to attain family medical history as patient was adopted Medications and Allergies Home Medications Medication Instructions Recorded Confirmed Type Atorvastatin [Lipitor] 40 mg PO DAILY 01/09/20 02/26/20 History FLUoxetine HCL [PROzac] 40 mg PO DAILY 01/09/20 02/26/20 History Gabapentin [Neurontin] 400 mg PO TID 01/09/20 02/26/20 History clonazePAM [KlonoPIN] 1 mg PO BID 01/09/20 02/26/20 History hydrOXYzine pamoate [Vistaril] 50 mg PO TID 01/09/20 02/26/20 History Acetaminophen [Tylenol] 650 mg PO Q4H PRN 02/26/20 02/26/20 History Omeprazole 20 mg PO DAILY 02/26/20 02/26/20 History Ondansetron [Zofran] 4 mg PO Q6H PRN 02/26/20 02/26/20 History lisinopriL [Zestril] 5 mg PO DAILY 02/26/20 02/26/20 History methylPREDNISolone [Medrol Dose See Taper PO DIRECTED 02/26/20 02/26/20 History Pack] Allergies Allergy/AdvReac Type Severity Reaction Status Date / Time No Known Allergies Allergy Verified 02/26/20 20:31 Physical Exam Vitals: Vital Signs Temp Pulse Pulse Resp BP BP Pulse Ox 02/27/20 20:45 101.0 F H 02/27/20 19:02 102.9 F H 107 H 14 138/78 97 02/27/20 13:00 98.7 F 83 18 113/63 98 02/27/20 10:35 100.1 F H 02/27/20 08:06 102.3 F H 02/27/20 05:29 101.4 F H 93 14 121/72 97 02/27/20 04:22 101.5 F H 96 14 116/70 96 02/27/20 03:52 101.2 F H 98 14 105/63 95 02/27/20 03:42 101.4 F H 99 14 106/64 94 L 02/27/20 03:00 102.0 F H 101 H 16 111/65 95 02/27/20 01:26 101.0 F H 100 14 117/73 98 02/27/20 00:56 101.0 F H 100 16 119/70 99 02/27/20 00:46 102.1 F H 99 16 110/61 99 02/27/20 00:05 14 02/26/20 22:45 100.3 F H 99 14 113/61 97 02/26/20 22:21 101.8 F H 103 H 18 99/52 96 Intake and Output 02/27/20 02/27/20 02/27/20 06:59 14:59 22:59 Intake Total 1500 350 Output Total 400 300 Balance 1100 350 -300 Intake: Intake, IV Titration 480 350 Amount Cefepime 2 gm In Sodium 100 Chloride 0.9% 100 ml @ 25 mls/hr IVPB Q8HR [facility] Rx# :[id number] Sodium Chloride 0.9% 1, 480 000 ml @ 60 mls/hr IV . [id number] [facility] Rx#:[id number] Vancomycin 1,500 mg In 250 Sodium Chloride 0.9% 250 ml @ 125 mls/hr IVPB Q16H [facility] Rx#:[id number] Oral 400 Blood Product 620 Rc As-3 Unit 310 [id number] Rc Pheresis As-3 Unit 310 [id number] Output: Urine 400 300 Other: Voiding Method Urinal Urinal Urinal GENERAL DESCRIPTION: An elderly male lying in bed, no distress. No tachypnea or accessory muscle of respiration use. HEENT: Shows Pallor , no scleral icterus. Oral mucous membrane is dry. No pharyngeal erythema or thrush NECK: Trachea central, no thyromegaly. LUNGS: Unlabored breathing. Decreased breath sounds at the base. No wheeze or crackle. HEART: S1, S2, regular rate and rhythm. No loud murmur ABDOMEN: Soft, no tenderness , guarding or rigidity, no organomegaly EXTREMITIES: No edema of feet. SKIN: No rash, no masses palpable. NEUROLOGICAL: The patient is awake, alert, oriented x3, mood and affect normal. Results CBC & Chem 7: 02/27/20 05:22 02/27/20 05:22 Labs: Abnormal Lab Results - Last 24 Hours (Table) 02/26/20 02/27/20 02/27/20 Range/Units 20:15 05:22 05:22 WBC 1.1 L* (3.8-10.6) k/uL RBC 3.02 L (4.30-5.90) m/uL Hgb 9.5 L D (13.0-17.5) gm/dL Hct 28.8 L (39.0-53.0) % Plt Count 35 L (150-450) k/uL Blast Cells % 4 H* % Neutrophils # (Manual) 0.23 L* (1.3-7.7) k/uL Lymphocytes # (Manual) 0.62 L (1.0-4.8) k/uL Blast Cells # (Man) 0.04 H (0) k/uL Retic Count (0.5-2.0) % APTT (22.0-30.0) sec Sodium 133 L (137-145) mmol/L Glucose 108 H (74-99) mg/dL Calcium 7.7 L (8.4-10.2) mg/dL Albumin 3.2 L (3.5-5.0) g/dL Urine Protein (Negative) Urine Blood (Negative) Urine RBC (0-5) /hpf Urine Mucus (None) /hpf Crossmatch See Detail 02/27/20 02/27/20 02/27/20 Range/Units 12:15 19:29 19:29 WBC (3.8-10.6) k/uL RBC (4.30-5.90) m/uL Hgb (13.0-17.5) gm/dL Hct (39.0-53.0) % Plt Count (150-450) k/uL Blast Cells % % Neutrophils # (Manual) (1.3-7.7) k/uL Lymphocytes # (Manual) (1.0-4.8) k/uL Blast Cells # (Man) (0) k/uL Retic Count 0.2 L (0.5-2.0) % APTT 30.3 H (22.0-30.0) sec Sodium (137-145) mmol/L Glucose (74-99) mg/dL Calcium (8.4-10.2) mg/dL Albumin (3.5-5.0) g/dL Urine Protein 1+ H (Negative) Urine Blood Small H (Negative) Urine RBC 7 H (0-5) /hpf Urine Mucus Rare H (None) /hpf Crossmatch Assessment and Plan Assessment: Patient presented to the hospital with febrile neutropenia in this patient who did have a fever Leukopenia predominantly GI symptoms though CT of abdominal pelvis did not show any acute abnormality, urine is negative abdominal soft on clinical examination the patient did have a rash attributed to the chemo and possible concern for PICC line infection has no other obvious clinical focus of infection (1) Neutropenic fever Current Visit: Yes Status: Acute Code(s): D70.9 - NEUTROPENIA, UNSPECIFIED; R50.81 - FEVER PRESENTING WITH CONDITIONS CLASSIFIED ELSEWHERE SNOMED Code(s): 784521200 Plan: 1-Vancomycin pharmacy to dose target trough of 15 while watching kidney function and Vanco trough closely 2-cefepime 2 g every 8 hours We will follow on clinical condition and cultures to further adjust medication if needed Thank you for this consultation will follow this patient with you Time with Patient: Greater than 30
[2020-02-27 22:36] LABS: INR 1.01 (0.90-1.11); Prothrombin Time 11.1 sec (9.9-11.9)
--- NOTE | 2020-02-27 23:50 | HP ---
HISTORY AND PHYSICAL DATE OF SERVICE: 02/27/2020 CHIEF COMPLAINT: Fever, oral lesions and rashes. HISTORY OF PRESENT ILLNESS: This 69-year-old gentleman with a past medical history of multiple medical problems including CVA, TIA, hypertension, hyperlipidemia, left-sided spontaneous pneumothorax, hemorrhagic stroke, left carotid stenosis 50%, anxiety, depression, being followed by Dr. Lemus in the outpatient setting also receiving treatment for leukemia. The patient had last chemotherapy yesterday. The patient took some Tylenol about 3 hours ago. The patient was having some fever. The patient also had throat pain, throat ulceration as well as diffuse rashes also. The patient came to [facility] and was admitted for further evaluation. Neutropenic sepsis suspected. Patient started on broad spectrum IV antibiotics. There is no history any headache, loss of consciousness, seizures at this time. The patient received 2 units of transfusion. PAST MEDICAL HISTORY: History of recently diagnosed leukemia, history of CVA, TIA, hypertension, hyperlipidemia, left-sided pneumothorax. MEDICATIONS: Medications prior to admission, home medications are: 1. Lipitor. 2. Tylenol. 3. Medrol Dosepak. 4. Zofran. 5. Omeprazole. 6. Zestril. 7. Vistaril. 8. Klonopin. 9. Neurontin. 10.Prozac. ALLERGIES: None. FAMILY HISTORY: Patient is adopted. SOCIAL HISTORY: No history of smoking. No history of alcohol intake. REVIEW OF SYSTEMS: ENT: No diminished hearing or diminished vision. CARDIOVASCULAR SYSTEM: No angina. RESPIRATORY SYSTEM: No cough or hemoptysis. GI: No nausea. : No dysuria. NERVOUS SYSTEM: No numbness or weakness, ALLERGY/IMMUNOLOGY: No asthma. MUSCULOSKELETAL: As mentioned earlier. HEMATOLOGY/ONCOLOGY: As mentioned earlier. ENDOCRINE: As mentioned earlier. CONSTITUTIONAL: As mentioned earlier. DERMATOLOGY: As mentioned earlier. RHEUMATOLOGY: Negative. PSYCHIATRY: As mentioned earlier. PHYSICAL EXAMINATION: Patient is alert and oriented x3. Pulse is 83, blood pressure 113/63, respiration 18, temperature is 98.7, T-max 101.4, pulse ox 98% on room air. HEENT: Conjunctivae normal. Oral mucosa moist. NECK: No jugular venous distention. No carotid bruit. CARDIOVASCULAR: S1, S2 muffled. RESPIRATORY: Breath sounds diminished at the bases. A few scattered rhonchi and crackles. ABDOMEN: Soft, obese, nontender. No mass palpable. LEGS: No edema, no swelling. NERVOUS SYSTEM: Higher function as mentioned earlier. Moves all 4 limbs. No focal motor or sensory deficits. LYMPHATICS: No lymphadenopathy of the neck, axillae or groin. SKIN: Diffuse maculopapular purpuric lesions present in the low half of the body and upper arm and as well as lower legs. JOINTS: No active deforming arthropathy. LABS: WBC 1.1. Platelets are 35. Hemoglobin is 5.1 and 9.5. Lactic acid is 2.4. UA noted. COVID-19 is negative. ASSESSMENT: 1. Fever with acute neutropenic sepsis. 2. Severe pancytopenia secondary to chemotherapy. 3. Acute leukemia on chemotherapy. 4. Diffuse skin lesions, possibly purpuric lesions secondary thrombocytopenia or chemotherapy. 5. Hyponatremia. 6. Elevated lactic acid secondary to sepsis. 7. History of cerebrovascular accident, transient ischemic attack. 8. Hypertension. 9. Hyperlipidemia. 10.History of left-sided pneumothorax. 11.History of hemorrhagic stroke. 12.History of left carotid stenosis 50%. 13.History of anxiety, depression. 14.History of ACL replacement. 15.FULL CODE. RECOMMENDATIONS AND DISCUSSION: In this 69-year-old gentleman who presented with multiple complex medical issues, we will monitor the patient closely. Will continue the current medications, continue symptomatic treatment. Otherwise at this time I recommend broad-spectrum IV antibiotics. Will get cultures. Consult Hematology/Oncology and Infectious Disease. The patient is on cefepime and Vanco. Prognosis guarded because of multiple complex medical issues. Home medications are resumed. I will repeat blood counts. Guarded prognosis. Further recommendations to follow. A copy of dictation forwarded to Dr. Lemus who is the primary physician. Covid-19 is negative. MMODL / IJN: [id number] /
[2020-02-28] MEDS: ACETAMINOPHEN TAB 325 MG TAB PO PRN ×3 (03:34→18:12)
[2020-02-28] MEDS: VANCOMYCIN 1,500 MG in SODIUM CHLORIDE 0.9% 250 ML IVPB SCH ×2 (03:44→19:57)
[2020-02-28 07:12] LABS: HCT 26.8 % (39.0-53.0); HGB 9.2 gm/dL (13.0-17.5); MCHC 34.5 g/dL (31.0-37.0); MCV 92.8 fL (80.0-100.0); Mean Platelet Volume 8.5; RBC 2.88 m/uL (4.30-5.90); RDW 15.2 % (11.5-15.5)
[2020-02-28 07:25] LABS: WBC 0.7 k/uL (3.8-10.6)
[2020-02-28 07:26] LABS: Platelet Count 21 k/uL (150-450)
[2020-02-28] MEDS: SODIUM CHLORIDE 0.9% 1,000 ML IV SCH ×2 (07:42→23:33)
[2020-02-28] MEDS: FLUoxetine HCL 20 MG CAP PO SCH (07:43)
[2020-02-28] MEDS: GABAPENTIN 400 MG CAP PO SCH ×3 (07:44→21:22)
[2020-02-28] MEDS: lisinopriL 5 MG TAB PO SCH (07:44)
[2020-02-28] MEDS: clonazePAM 1 MG TAB PO SCH ×2 (07:44→20:00)
[2020-02-28] MEDS: ATORVASTATIN 40 MG TAB PO SCH (07:44)
[2020-02-28] MEDS: ACYCLOVIR 200 MG CAP PO SCH ×3 (07:45→21:23)
[2020-02-28] MEDS: PANTOPRAZOLE 40 MG/10 ML VIAL IVP SCH ×2 (07:45→20:00)
[2020-02-28] MEDS: NYSTATIN 100,000 UNIT/ML SUSP 500,000 UNIT/5 ML CUP PO SCH ×4 (07:46→21:23)
[2020-02-28] MEDS: FLUCONAZOLE 100 MG TAB PO SCH (07:47)
[2020-02-28] MEDS: hydrOXYzine HCL 25 MG TAB PO SCH ×3 (07:47→21:22)
[2020-02-28] MEDS: CEFEPIME 2 GM in SODIUM CHLORIDE 0.9% 100 ML IVPB SCH ×3 (08:13→23:32)
[2020-02-28 08:27] LABS: Anisocytosis (M) Present; Poikilocytosis (M) Present
[2020-02-28 10:10] LABS: Phosphorus 2.1 mg/dL (2.4-5.1); Uric Acid 3.6 mg/dL (3.7-8.7)
[2020-02-28 11:14] LABS: African American GFR (CKD) 80.1 (60.0-200.0); Albumin 3.3 g/dL (3.80-4.90); Albumin/Globulin Ratio 1.43 (1.60-3.17); BUN/Creat Ratio 16.36 Ratio (12.00-20.00); Calcium 7.6 mg/dL (8.7-10.3); Globulin 2.3 g/dL (1.6-3.3); Non-African American GFR(CKD) 69.1 (60.0-200.0); Potassium 4.1 mmol/L (3.5-5.5); Total Bilirubin 0.9 mg/dL (0.3-1.2); Total Protein 5.6 g/dL (6.2-8.2)
[2020-02-28] MEDS: IOPAMIDOL CONTRAST (ORAL USE) VIAL PO PRN ×2 (12:21→13:46)
--- NOTE | 2020-02-28 14:46 | CT ---
EXAMINATION TYPE: CT abdomen pelvis w con DATE OF EXAM: 02/28/2020 COMPARISON: CT abdomen and pelvis 2 days ago HISTORY: abd pain for [address] DLP: 1484 mGycm, Automated Exposure Control for Dose Reduction was Utilized. CONTRAST: CT scan of the abdomen and pelvis is performed with oral and with IV Contrast, patient injected with 100 mL of Isovue 300. FINDINGS: LUNG BASES: [id number] bibasilar linear scarring and/or atelectasis. LIVER/GB: No significant abnormality is appreciated. PANCREAS: No significant abnormality is seen. SPLEEN: Splenomegaly is redemonstrated at 15.4 cm on axial image 24. ADRENALS: No significant abnormality is seen. KIDNEYS: Symmetric cortical medullary uptake and excretion without hydronephrosis seen bilaterally. BOWEL: Diverticula in the left and sigmoid colon. No CT evidence for acute diverticulitis. No suspici ous small or large bowel dilatation. Oral contrast reaches level of hepatic flexure on current study. PROSTATE/SEMINAL VESICLES: Mildly enlarged prostate gland consistent with BPH. LYMPH NODES: No greater than 1cm abdominal or pelvic lymph nodes are appreciated. OSSEOUS STRUCTURES: Spine is straightened with mild multilevel spurring. Mild disc space narrowing L5 -S1 level. OTHER: Small to moderate-sized fat-containing left inguinal hernia redemonstrated. IMPRESSION: No bowel obstruction. No significant new or acute finding identified.
--- NOTE | 2020-02-28 18:34 | P.PN ---
Subjective Progress Note Date: 02/28/20 Principal diagnosis: Still with fevers Objective - Vital Signs Vital signs: Vital Signs Temp 100.3 F H 02/28/20 18:16 Pulse 91 02/28/20 11:23 Resp 18 02/28/20 11:23 BP 105/63 02/28/20 11:23 Pulse Ox 96 02/28/20 11:23 Intake & Output 02/27/20 02/28/20 02/28/20 18:59 06:59 18:59 Intake Total 350 1410 590 Output Total 200 700 400 Balance 150 710 190 Intake: Intake, IV Titration 350 1010 590 Amount Cefepime 2 gm In Sodium 100 100 100 Chloride 0.9% 100 ml @ 25 mls/hr IVPB Q8HR [facility] Rx# :[id number] Sodium Chloride 0.9% 1, 660 240 000 ml @ 60 mls/hr IV . [id number] [facility] Rx#:[id number] Vancomycin 1,500 mg In 250 250 250 Sodium Chloride 0.9% 250 ml @ 125 mls/hr IVPB Q16H [facility] Rx#:[id number] Oral 400 Output: Urine 200 700 400 Other: Voiding Method Urinal Urinal Urinal - Constitutional General appearance: Present: cooperative, no acute distress - EENT Eyes: Present: EOMI, PERRLA ENT: Present: normal oropharynx - Neck Neck: Present: normal ROM - Respiratory Respiratory: bilateral: CTA - Cardiovascular Rhythm: regularly irregular - Gastrointestinal General gastrointestinal: Present: normal bowel sounds, soft - Integumentary Integumentary: Present: pale - Neurologic Neurologic: Present: CNII-XII intact - Musculoskeletal Musculoskeletal: Present: generalized weakness, strength equal bilaterally - Psychiatric Psychiatric: Present: A&O x's 3, appropriate affect - Labs CBC & Chem 7: 02/28/20 06:53 02/28/20 06:53 Labs: Abnormal Lab Results - Last 24 Hours (Table) 02/27/20 02/27/20 02/27/20 Range/Units 19:29 19:29 19:29 WBC (3.8-10.6) k/uL RBC (4.30-5.90) m/uL Hgb (13.0-17.5) gm/dL Hct (39.0-53.0) % Plt Count (150-450) k/uL Retic Count 0.2 L (0.5-2.0) % Haptoglobin 248.0 H (31.2-198.0) mg/dL APTT (22.0-30.0) sec Sodium (135-145) mmol/L Uric Acid 3.6 L (3.7-8.7) mg/dL Calcium (8.7-10.3) mg/dL Phosphorus 2.1 L (2.4-5.1) mg/dL Total Protein (6.2-8.2) g/dL Albumin (3.80-4.90) g/dL Albumin/Globulin Ratio (1.60-3.17) g/dL 02/27/20 02/28/20 02/28/20 Range/Units 19:29 06:53 06:53 WBC 0.7 L* (3.8-10.6) k/uL RBC 2.88 L (4.30-5.90) m/uL Hgb 9.2 L (13.0-17.5) gm/dL Hct 26.8 L (39.0-53.0) % Plt Count 21 L (150-450) k/uL Retic Count (0.5-2.0) % Haptoglobin (31.2-198.0) mg/dL APTT 30.3 H 32.8 H (22.0-30.0) sec Sodium (135-145) mmol/L Uric Acid (3.7-8.7) mg/dL Calcium (8.7-10.3) mg/dL Phosphorus (2.4-5.1) mg/dL Total Protein (6.2-8.2) g/dL Albumin (3.80-4.90) g/dL Albumin/Globulin Ratio (1.60-3.17) g/dL 02/28/20 Range/Units 06:53 WBC (3.8-10.6) k/uL RBC (4.30-5.90) m/uL Hgb (13.0-17.5) gm/dL Hct (39.0-53.0) % Plt Count (150-450) k/uL Retic Count (0.5-2.0) % Haptoglobin (31.2-198.0) mg/dL APTT (22.0-30.0) sec Sodium 134 L (135-145) mmol/L Uric Acid (3.7-8.7) mg/dL Calcium 7.6 L (8.7-10.3) mg/dL Phosphorus (2.4-5.1) mg/dL Total Protein 5.6 L (6.2-8.2) g/dL Albumin 3.30 L (3.80-4.90) g/dL Albumin/Globulin Ratio 1.43 L (1.60-3.17) g/dL Microbiology - Last 24 Hours (Table) 02/26/20 20:20 Blood Culture - Preliminary Blood No Growth after 24 hours 02/26/20 20:20 Blood Culture - Preliminary Blood No Growth after 24 hours Assessment and Plan (1) Anemia Current Visit: Yes Status: Acute Code(s): D64.9 - ANEMIA, UNSPECIFIED SNOMED Code(s): 896172773 (2) Neutropenic fever Current Visit: Yes Status: Acute Code(s): D70.9 - NEUTROPENIA, UNSPECIFIED; R50.81 - FEVER PRESENTING WITH CONDITIONS CLASSIFIED ELSEWHERE SNOMED Code(s): 908156884 (3) Thrombocytopenia Current Visit: Yes Status: Acute Code(s): D69.6 - THROMBOCYTOPENIA, UNSPECIFIED SNOMED Code(s): 331097994 Plan: AML Febrile Neutropenia: - T-Max 101.2 mild improvement but still spiking fevers - Melissa Cultures Pending - COVID Neg - Influenza Pending - Broad spectrum abx, anti-fungal added after no decrease in fevers this am, prophylaxis acyclovir added - Consult placed for Dr. Mathur to manage - Prophylaxis at discharge secondary to prolonged neutropenia anticpated with AML and initiation of induction Severe Anemia: - Status POst Transfusion - Irradiated blood products only - CMV antibodies pending, until resulted please confirm cmv negative blood Thrombocytopenia: - No anticoagulation, NSAIDS, NO aspirin less than 50K - Monitor for bleeding Physician Attest: I have completed the full history and physical and developed the full impression and plan, agree with above dictated as a scribe.
--- NOTE | 2020-02-28 19:01 | PN ---
PROGRESS NOTE DATE OF SERVICE: Service is 02/28/2020 This 69-year-old gentleman with a past medical history of multiple medical problems was admitted with neutropenic sepsis and significant rash. Patient also complained of abdominal discomfort. Dr. Rees recommended CT scan of the abdomen and pelvis, which showed no bowel obstruction, no significant acute findings. The patient is being closely monitored. The patient is on broad-spectrum IV antibiotics. Cultures are negative so far. Past medical history reviewed. REVIEW OF SYSTEMS: CARDIOVASCULAR SYSTEM: No angina, palpitations. RESPIRATORY SYSTEM: As mentioned earlier. GI: As mentioned earlier. : No dysuria or retention. NERVOUS SYSTEM: No numbness, weakness. CURRENT MEDICATIONS: Reviewed. They include Tylenol, Zovirax, Xanax, Lipitor, cefepime, Klonopin, Diflucan, Prozac, Dilaudid, Zestril, Narcan, Protonix, vancomycin. PHYSICAL EXAMINATION: Patient alert and oriented x3. Pulse is 91, blood pressure 105/60, respiration 18, temperature 101 degree Fahrenheit, pulse ox 96% on room air. HEENT: Conjunctivae normal. NECK: No jugular venous distention. CARDIOVASCULAR SYSTEM: S1, S2 muffled. RESPIRATORY SYSTEM: Breath sounds diminished at the bases. A few scattered rhonchi. ABDOMEN: Soft, non-tender. LEGS: No edema. No swelling. NERVOUS SYSTEM: No focal deficit. EXAMINATION OF THE SKIN: Diffuse rash present. LABS: WBC 0.7, hemoglobin 10.2, platelets 21. Sodium is 134. Other labs are noted. ASSESSMENT: 1. Fever with acute neutropenic sepsis. 2. Severe pancytopenia secondary to chemotherapy. 3. Acute leukemia, on chemotherapy. 4. Diffuse skin lesions, possibly purpuric lesions secondary to thrombocytopenia and chemotherapy. 5. Hyponatremia. 6. Elevated lactic acid secondary to sepsis. 7. History of cerebrovascular accident, transient ischemic attack. 8. Hypertension. 9. Hyperlipidemia. 10.History of left-sided pneumothorax. 11.History of hemorrhagic stroke. 12.History of left carotid stenosis 50%. 13.History of anxiety, depression. 14.History of ACL replacement. 15.FULL CODE. RECOMMENDATIONS AND DISCUSSION: I recommend to continue current medications, continue with the monitoring, symptomatic treatment. Continue with broad-spectrum IV antibiotics. Follow the cultures. CT scan of the abdomen was normal. Follow closely with Dr. Rees as well as Dr. Mathur from Infectious Disease. Prognosis is extremely guarded because of multiple complex medical issues. Further recommendations to follow. MMODL / IJN: [id number] /
[2020-02-29] MEDS: ACETAMINOPHEN TAB 325 MG TAB PO PRN ×3 (02:19→17:23)
--- NOTE | 2020-02-29 04:36 | PN ---
PROGRESS NOTE DATE OF SERVICE: 02/28/2020 REASON FOR FOLLOWUP: Febrile neutropenia. INTERVAL HISTORY: The patient overall fever pattern has improved. He did have a low-grade fever of 100.3 this evening. The patient is feeling slightly better. He is breathing comfortably. The patient denies having any chest pain. Some nausea, but no vomiting. No abdominal pain. No diarrhea. PHYSICAL EXAMINATION: Blood pressure 121/71 with a pulse of 92, temperature is 100.1. He is 97% on room air. General description is an elderly male lying in bed in no distress. RESPIRATORY SYSTEM: Unlabored breathing, decreased breath sounds at bases. No wheeze. HEART: S1, S2. Regular rate and rhythm. ABDOMEN: Soft, no tenderness. LABS: Hemoglobin 9.2, white count 0.7, creatinine 1.1. Blood culture has been negative. DIAGNOSTIC IMPRESSION AND PLAN: Patient with febrile neutropenia predominantly gastrointestinal symptom. CT of abdomen and pelvis was repeated again which shows left inguinal hernia, but no acute abnormality. The patient is covered with cefepime, vancomycin to continue while awaiting for the culture to finalize. Continue with supportive care. MMODL / IJN: [id number] /
[2020-02-29] MEDS: PANTOPRAZOLE 40 MG/10 ML VIAL IVP SCH (08:47)
[2020-02-29] MEDS: CEFEPIME 2 GM in SODIUM CHLORIDE 0.9% 100 ML IVPB SCH ×2 (08:47→15:41)
[2020-02-29] MEDS: ACYCLOVIR 200 MG CAP PO SCH ×3 (08:48→21:06)
[2020-02-29] MEDS: clonazePAM 1 MG TAB PO SCH ×2 (08:48→21:06)
[2020-02-29] MEDS: ATORVASTATIN 40 MG TAB PO SCH (08:48)
[2020-02-29] MEDS: FLUoxetine HCL 20 MG CAP PO SCH (08:48)
[2020-02-29] MEDS: GABAPENTIN 400 MG CAP PO SCH ×3 (08:48→21:06)
[2020-02-29] MEDS: lisinopriL 5 MG TAB PO SCH (08:48)
[2020-02-29] MEDS: hydrOXYzine HCL 25 MG TAB PO SCH ×3 (08:49→21:06)
[2020-02-29] MEDS: NYSTATIN 100,000 UNIT/ML SUSP 500,000 UNIT/5 ML CUP PO SCH ×4 (08:49→21:07)
[2020-02-29] MEDS: FLUCONAZOLE 100 MG TAB PO SCH (08:49)
[2020-02-29] MEDS ORDERED: VANCOMYCIN TROUGH DUE 1 EACH MISC MISCELLANE ONE (10:00)
[2020-02-29] MEDS: VANCOMYCIN 1,500 MG in SODIUM CHLORIDE 0.9% 250 ML IVPB SCH ×2 (11:07→21:07)
[2020-02-29 11:36] LABS: HCT 25.6 % (39.0-53.0); HGB 8.9 gm/dL (13.0-17.5); MCH 32.3 pg (25.0-35.0); MCHC 34.7 g/dL (31.0-37.0); MCV 92.9 fL (80.0-100.0); Mean Platelet Volume 7.4; RBC 2.76 m/uL (4.30-5.90)
--- NOTE | 2020-02-29 11:50 | P.PN ---
Subjective Progress Note Date: 02/29/20 Principal diagnosis: Still with fevers Abdomen is improved this am, Patient seen and evaluated by Dr. Rees Objective - Vital Signs Vital signs: Vital Signs Temp 100.5 F H 02/29/20 07:15 Pulse 87 02/29/20 08:00 Resp 18 02/29/20 08:00 BP 110/63 02/29/20 07:15 Pulse Ox 97 02/29/20 07:15 Intake & Output 02/28/20 02/29/20 02/29/20 18:59 06:59 18:59 Intake Total 590 870 Output Total 400 200 Balance 190 670 Intake: Intake, IV Titration 590 870 Amount Cefepime 2 gm In Sodium 100 200 Chloride 0.9% 100 ml @ 25 mls/hr IVPB Q8HR [facility] Rx# :[id number] Sodium Chloride 0.9% 1, 240 420 000 ml @ 60 mls/hr IV . [id number] [facility] Rx#:[id number] Vancomycin 1,500 mg In 250 250 Sodium Chloride 0.9% 250 ml @ 125 mls/hr IVPB Q16H [facility] Rx#:[id number] Output: Urine 400 200 Other: Voiding Method Urinal Urinal Urinal # Voids 1 # Bowel Movements 1 - Constitutional General appearance: Present: cooperative, no acute distress - EENT Eyes: Present: EOMI, PERRLA ENT: Present: NA/AT, normal oropharynx - Respiratory Respiratory: bilateral: diminished - Cardiovascular Rhythm: regularly irregular - Gastrointestinal General gastrointestinal: Present: distended, tenderness - Integumentary Integumentary: Present: pale - Neurologic Neurologic Comment(s): non focal - Musculoskeletal Musculoskeletal: Present: generalized weakness, strength equal bilaterally - Psychiatric Psychiatric: Present: A&O x's 3 - Labs CBC & Chem 7: 02/28/20 06:53 02/28/20 06:53 Labs: Abnormal Lab Results - Last 24 Hours (Table) 02/27/20 Range/Units 19:29 Haptoglobin 248.0 H (31.2-198.0) mg/dL Microbiology - Last 24 Hours (Table) 02/26/20 20:20 Blood Culture - Preliminary Blood No Growth after 48 hours 02/26/20 20:20 Blood Culture - Preliminary Blood No Growth after 48 hours Assessment and Plan (1) Anemia Current Visit: Yes Status: Acute Code(s): D64.9 - ANEMIA, UNSPECIFIED SNOMED Code(s): 508259356 (2) Neutropenic fever Current Visit: Yes Status: Acute Code(s): D70.9 - NEUTROPENIA, UNSPECIFIED; R50.81 - FEVER PRESENTING WITH CONDITIONS CLASSIFIED ELSEWHERE SNOMED Code(s): 669743266 (3) Thrombocytopenia Current Visit: Yes Status: Acute Code(s): D69.6 - THROMBOCYTOPENIA, UNSPECIFIED SNOMED Code(s): 780784329 Plan: AML Febrile Neutropenia: Persistent - T-Max 100.5 mild improvement but still spiking fevers - Melissa Cultures Pending - COVID Neg - Influenza Pending - Broad spectrum abx, anti-fungal added after no decrease in fevers this am, prophylaxis acyclovir added - Consult placed for Dr. Mathur to manage - Prophylaxis at discharge secondary to prolonged neutropenia anticpated with AML and initiation of induction - Do not advance diet please, clear liquids - CT abdomen and pelvis without significant evidence of colitis or obstruction Severe Anemia: - transfuse hemoglobin less than 7. - Irradiated blood products only Thrombocytopenia: - No anticoagulation, NSAIDS, NO aspirin less than 50K - Monitor for bleeding Physician Attest: I have completed the full history and physical and developed the full impression and plan, agree with above dictated as a scribe.
[2020-02-29 11:57] LABS: WBC 0.3 k/uL (3.8-10.6)
[2020-02-29 12:35] LABS: Platelet Count 9 k/uL (150-450)
--- NOTE | 2020-02-29 14:48 | CT ---
EXAMINATION TYPE: CT brain wo con DATE OF EXAM: 02/29/2020 COMPARISON: none HISTORY: Fever, neutropenia CT DLP: [address] of the brain was performed. The ventricles, basal cisterns and sulci overlying the cerebral convexities demonstrate mild enlargem ent. There is no evidence for intracranial hemorrhage or sulcal effacement. There is decreased attenuation about the periventricular white matter and deep white matter of both c erebral hemispheres, compatible with chronic small vessel ischemia. Differential diagnosis does inclu de demyelination. No mass effects are seen.No midline shift. Osseous calvarium is intact. If symptoms persist consider MRI. IMPRESSION: 1. Age related atrophic and chronic small vessel ischemic change without acute intracranial process s een at this time.
--- NOTE | 2020-02-29 15:03 | CT ---
EXAMINATION TYPE: CT chest wo con DATE OF EXAM: 02/29/2020 COMPARISON: 01/10/2020. HISTORY: Fever, neutropenia CT DLP: 540 mGycm. Automated Exposure Control for Dose Reduction was Utilized. TECHNIQUE: CT scan of the thorax is performed without IV contrast. FINDINGS: LUNGS: Subsegmental changes at the left lung base most typical of atelectasis. Early infiltrate felt less likely. Additional linear areas in the superior segment right lower lobe most typical scar or at electasis. No pneumothorax. No pleural effusion.. MEDIASTINUM: Lack of IV contrast is noted to limit evaluation for mediastinal and especially hilar ad enopathy. There are no definitive greater than 1 cm hilar or mediastinal lymph nodes. No cardiomega ly or pericardial effusion is seen. The heart is enlarged. Small hiatal hernia noted. Left-sided cent ral line seen with the tip in the SVC right atrial junction. OTHER: Hypertrophic and degenerative change of the spine.. IMPRESSION: 1. Left basilar subsegmental consolidation for which atelectasis is favored over pneumonia. Correlate clinically. 2. There is a 3 mm subpleural nodule in the left lower lobe too small to characterize could be follow ed on a 12 month basis. Finding obscured on prior exam due to consolidation and pleural effusion.
[2020-02-29 15:27] LABS: African American GFR (CKD) 80.1 (60.0-200.0); Albumin 3.3 g/dL (3.80-4.90); Albumin/Globulin Ratio 1.32 (1.60-3.17); Anion Gap 6.1 mmol/L (4.00-12.00); BUN/Creat Ratio 11.82 Ratio (12.00-20.00); Calcium 7.5 mg/dL (8.7-10.3); Carbon Dioxide 21.9 mmol/L (21.6-31.8); Globulin 2.5 g/dL (1.6-3.3); Non-African American GFR(CKD) 69.1 (60.0-200.0); Potassium 3.4 mmol/L (3.5-5.5); Total Bilirubin 0.8 mg/dL (0.3-1.2); Total Protein 5.8 g/dL (6.2-8.2)
[2020-02-29] MEDS: PANTOPRAZOLE 40 MG TABLET PO SCH (15:43)
--- NOTE | 2020-02-29 15:55 | PN ---
PROGRESS NOTE DATE OF SERVICE: 02/29/2020 This 69-year-old gentleman who was admitted with multiple medical problems, including neutropenic sepsis, is being closely monitored. CT scan of the brain did not show any acute abnormality. The patient also had severe thrombocytopenia and platelets of 5. Patient has chemotherapy for leukemia at this time. Multiple consultants, including Infectious Disease as well as Dr. Rees, Hematology, are following the patient. The cultures are negative so far. COVID is negative. Influenza is pending at this time. CT scan did not show any colitis or any obstruction. Past medical history reviewed. The patient is still running a fever. REVIEW OF SYSTEMS: CARDIOVASCULAR SYSTEM: No angina, palpitations. RESPIRATORY SYSTEM: As mentioned earlier. GI: As mentioned earlier. : No dysuria or retention. NERVOUS SYSTEM: No numbness, weakness. CURRENT MEDICATIONS: 1. Tylenol p.r.n. 2. Zovirax 400 mg t.i.d. 3. Xanax. 4. Lipitor. 5. Cefepime. 6. Klonopin. 7. Diflucan. 8. Prozac. 9. Neurontin. 10.Dilaudid. 11.Atarax. 12.Zestril. 13.Narcan. 14.Zofran. 15.Protonix. 16.Restoril. 17.Vancomycin. PHYSICAL EXAMINATION: Patient is alert, oriented x3. Pulse 67, blood pressure 110/63, respiration 18 temperature 100.5, pulse ox 96% on room air. HEENT: Conjunctivae normal. NECK: No jugular venous distention. CARDIOVASCULAR SYSTEM: S1, S2 muffled. RESPIRATORY SYSTEM: Breath sounds diminished at the bases. Bilateral scattered rhonchi and crackles. ABDOMEN: Soft. Mild diffuse distention. LEGS: No edema. No swelling. NERVOUS SYSTEM: No focal deficit. LABS/IMAGING: WBC 0.3, hemoglobin 8.9, and platelets are 9. Sodium is 134. UA noted. As mentioned earlier, cultures are negative so far. The chest x-ray reviewed by me showed no acute abnormality. ASSESSMENT: 1. Neutropenic fever with sepsis, present on admission, with continued fever. 2. Severe pancytopenia secondary to chemotherapy. 3. Severe thrombocytopenia. 4. Acute leukemia, on chemotherapy. 5. Diffuse skin lesions, possibly peptic lesions secondary to thrombocytopenia and chemotherapy. 6. Hyponatremia. 7. Elevated lactic acid secondary to sepsis. 8. History of cerebrovascular accident, transient ischemic attack. 9. Hypertension. 10.Hyperlipidemia. 11.History of left-sided pneumothorax. 12.History of hemorrhagic stroke. 13.History of left carotid stenosis 50%. 14.History of anxiety, depression. 15.History of ACL replacement. 16.FULL CODE. RECOMMENDATIONS AND DISCUSSION: I recommend to continue current medications, continue with the monitoring, symptomatic treatment. I would also recommend a CT scan of the chest as well as CT of the brain to complete the workup, especially since the patient is running a high fever and there is no evidence of neck stiffness at this time. Otherwise, we will continue to monitor. Infectious Disease is following the patient closely. Platelets to be addressed by Hematology/Oncology for possible platelet transfusions if the platelets are less than 5. Otherwise, continue to monitor. Once again, the prognosis is extremely guarded because of multiple complex medical issues. Further recommendations to follow. MMODL / IJN: [id number] /
[2020-02-29] MEDS ORDERED: ACETAMINOPHEN IV (For NPO) 1,000 MG in EMPTY BAG 1 BAG IVPB STA (19:23)
[2020-02-29 20:34] LABS: INR 1.1 (<1.2); Partial Thromboplastin Time 29.3 sec (22.0-30.0)
[2020-02-29] MEDS: SODIUM CHLORIDE 0.9% 1,000 ML IV SCH (21:11)
[2020-03-01] MEDS: CEFEPIME 2 GM in SODIUM CHLORIDE 0.9% 100 ML IVPB SCH ×3 (00:41→21:18)
[2020-03-01] MEDS: ACETAMINOPHEN TAB 325 MG TAB PO PRN ×3 (02:12→14:36)
[2020-03-01] MEDS ORDERED: SODIUM CHLORIDE 0.9% 500 ML 500 ML IV ONE (04:00)
[2020-03-01] MEDS ORDERED: ACETAMINOPHEN IV (For NPO) 1,000 MG in EMPTY BAG 1 BAG IVPB ONE (04:00)
--- NOTE | 2020-03-01 04:43 | PN ---
PROGRESS NOTE DATE OF SERVICE: 02/29/2020 REASON FOR FOLLOWUP: Febrile neutropenia. INTERVAL HISTORY: The patient's overall fever pattern slightly improved. No history of spiking fever. The patient denies having any chest pain or cough. No nausea, no vomiting. No abdominal pain. However, he is complaining of diarrhea with multiple loose stools. PHYSICAL EXAMINATION: Blood pressure 109/60 with a pulse of 99, temperature 99.2. He is 97% on room air. General description is an elderly male lying in bed in no distress. RESPIRATORY SYSTEM: Unlabored breathing, decreased breath sounds in the bases. No wheeze. HEART: S1, S2. Regular rate and rhythm. ABDOMEN: Soft, no tenderness. Skin examination did show some maculopapular rash. LABS: BUN of 13, creatinine 1.1. Stool for C difficile is negative. White count 0.3. Blood culture so far negative. DIAGNOSTIC IMPRESSION AND PLAN: Patient with febrile neutropenia in this patient who did have a CT of abdomen and pelvis along with CT of the chest with left basilar subsegmental atelectasis concerning for pneumonia. The patient is covered with cefepime and vancomycin to continue and will monitor his clinical course closely. MMODL / IJN: [id number] /
[2020-03-01 06:23] LABS: HCT 24.2 % (39.0-53.0); HGB 8.5 gm/dL (13.0-17.5); MCH 32.8 pg (25.0-35.0); MCV 93.5 fL (80.0-100.0); Mean Platelet Volume 7.3; RBC 2.59 m/uL (4.30-5.90); RDW 14.9 % (11.5-15.5)
[2020-03-01 06:36] LABS: WBC 0.3 k/uL (3.8-10.6)
[2020-03-01 06:37] LABS: Platelet Count 7 k/uL (150-450)
[2020-03-01 07:13] LABS: Anisocytosis (M) Present
[2020-03-01] MEDS: lisinopriL 5 MG TAB PO SCH (08:58)
[2020-03-01] MEDS: FLUoxetine HCL 20 MG CAP PO SCH (08:58)
[2020-03-01] MEDS: clonazePAM 1 MG TAB PO SCH ×2 (08:58→21:19)
[2020-03-01] MEDS: GABAPENTIN 400 MG CAP PO SCH ×3 (08:58→21:19)
[2020-03-01] MEDS: VANCOMYCIN 1,500 MG in SODIUM CHLORIDE 0.9% 250 ML IVPB SCH ×2 (08:59→21:18)
[2020-03-01] MEDS: ATORVASTATIN 40 MG TAB PO SCH ×2 (09:00→12:00)
[2020-03-01] MEDS: PANTOPRAZOLE 40 MG TABLET PO SCH ×2 (09:02→17:46)
[2020-03-01] MEDS: NYSTATIN 100,000 UNIT/ML SUSP 500,000 UNIT/5 ML CUP PO SCH ×4 (09:06→21:19)
[2020-03-01] MEDS: hydrOXYzine HCL 25 MG TAB PO SCH ×3 (09:06→21:19)
[2020-03-01] MEDS: ACYCLOVIR 200 MG CAP PO SCH ×3 (09:06→21:19)
[2020-03-01] MEDS: FLUCONAZOLE 100 MG TAB PO SCH (09:07)
[2020-03-01 09:42] LABS: African American GFR (CKD) 80.1 (60.0-200.0); Albumin/Globulin Ratio 1.3 (1.60-3.17); Anion Gap 5.8 mmol/L (4.00-12.00); BUN/Creat Ratio 12.73 Ratio (12.00-20.00); Calcium 7.1 mg/dL (8.7-10.3); Carbon Dioxide 22.2 mmol/L (21.6-31.8); Globulin 2.3 g/dL (1.6-3.3); Magnesium 1.8 mg/dL (1.5-2.4); Non-African American GFR(CKD) 69.1 (60.0-200.0); Potassium 3.4 mmol/L (3.5-5.5); Total Bilirubin 0.8 mg/dL (0.2-1.2); Total Protein 5.3 g/dL (6.2-8.2)
[2020-03-01] MEDS: SODIUM CHLORIDE 0.9% 1,000 ML IV SCH (16:13)
--- NOTE | 2020-03-01 16:26 | PN ---
PROGRESS NOTE DATE OF SERVICE: 03/01/2020 This is a 69-year-old gentleman admitted with multiple medical problems, history of neutropenic sepsis, is being closely monitored. The patient is running continuous IV. Patient is on broad spectrum IV antibiotics. Cultures are negative so far. The patient had oral ulcers with some pain at this time. Dr. Mathur and Hematology, Oncology following the patient closely. The CT scan of the brain was done yesterday which showed age-related atrophic changes and without any other intracranial processes. Chest CT scan was also done yesterday which showed left basilar segment consolidation with atelectasis, 3 cm subpleural nodule. Patient will be closely monitored. PAST MEDICAL HISTORY: Reviewed. REVIEW OF SYSTEMS: CARDIOVASCULAR SYSTEM: No angina. RESPIRATION: As mentioned earlier. GI: As mentioned earlier. : As mentioned earlier. NERVOUS SYSTEM: No numbness or weakness. CURRENT MEDICATIONS: 1. Tylenol. 2. Zovirax. 3. Xanax. 4. Lipitor. 5. Cefepime. 6. Klonopin. 7. Diflucan. 8. Prozac. 9. Neurontin. 10.Dilaudid. 11.Zestril. 12.Narcan. 13.Mycostatin. 14.Protonix. 15.Restoril. 16.Vancomycin. PHYSICAL EXAM: Patient is alert, oriented x2. Pulse is 98, blood pressure is 108/54, respiration 18, temperature is a 102, pulse ox 100% on room air. HEENT: Conjunctivae normal, oral mucosa is moist, oral ulcer present. NECK: No jugular venous distention. No lymph node enlargement. CARDIOVASCULAR SYSTEMS: S1, S2, muffled. RESPIRATION: Breath sounds diminished at the bases, some scattered rhonchi, no crackles. ABDOMEN: Soft, mild diffuse discomfort. No guarding. No mass palpable. LEGS: No edema, no swelling. NERVOUS SYSTEM: Higher functions as mentioned earlier. Moves all 4 limbs. No focal motor deficits. LYMPHATICS: No lymph node enlargement. SKIN: No ulcer, diffuse rash is present. LABS: WBC 0.3, platelets 7 and hemoglobin is 8.5, sodium 130, potassium 3.4, calcium is 7.1. ASSESSMENT: 1. Neutropenic fever with neutropenic sepsis on admission, with continued fever. 2. Severe pancytopenia secondary to chemotherapy. 3. Severe thrombocytopenia. 4. Acute leukemia on chemotherapy. 5. Oral ulcer. 6. Possible left basilar as well as subsegmental pneumonia. 7. Diffuse skin lesions, lesions secondary to thrombocytopenia and chemotherapy. 8. Hyponatremia. 9. Elevated lactic acid secondary to sepsis. 10.History of CVA, TIA. 11.Hypertension. 12.Hyperlipidemia. 13.History of left-sided pneumothorax. 14.History hemorrhagic stroke. 15.History of left carotid stenosis 50%. 16.History of anxiety, depression. 17.History ACL replacement. 18.FULL CODE. RECOMMENDATION: Recommend to continue current management. Continue broad-spectrum antibiotic, antifungals. CT scan of the chest and brain noted. Guarded prognosis, further recommendations to follow. Consider steroids with the persisting. Cultures negative. Guarded prognosis. MMODL / IJN: [id number] / JEFFRY
--- NOTE | 2020-03-01 20:49 | P.PN ---
Subjective Progress Note Date: 03/01/20 Principal diagnosis: Still with fevers Diarrhea improving, platelet count 7K today and transfusion was given, reorder cbc in am. will advance diet today to ful liquids. Objective - Vital Signs Vital signs: Vital Signs Temp 99.8 F H 03/01/20 20:32 Pulse 97 03/01/20 20:32 Resp 16 03/01/20 20:32 BP 114/67 03/01/20 20:32 Pulse Ox 97 03/01/20 20:32 Intake & Output 03/01/20 03/01/20 03/02/20 06:59 18:59 06:59 Intake Total 940 0 Output Total 150 Balance 790 0 Intake: Intake, IV Titration 650 Amount Cefepime 2 gm In Sodium 100 Chloride 0.9% 100 ml @ 25 mls/hr IVPB Q8HR [facility] Rx# :[id number] Sodium Chloride 0.9% 1, 300 000 ml @ 60 mls/hr IV . [id number] [facility] Rx#:[id number] Vancomycin 1,500 mg In 250 Sodium Chloride 0.9% 250 ml @ 125 mls/hr IVPB Q12HR [facility] Rx#:[id number] Oral 290 Blood Product 0 Platelet Irr Pheresis Pas 0 -C Unit [id number] Output: Urine 150 Other: Voiding Method Urinal Urinal # Voids 1 2 # Bowel Movements 1 1 - Exam - Constitutional General appearance: Present: cooperative, no acute distress - EENT Eyes: Present: EOMI, PERRLA ENT: Present: NA/AT, normal oropharynx - Respiratory Respiratory: bilateral: diminished - Cardiovascular Rhythm: regularly irregular - Gastrointestinal General gastrointestinal: Present: distended, tenderness - Integumentary Integumentary: Present: pale - Neurologic Neurologic Comment(s): non focal - Musculoskeletal Musculoskeletal: Present: generalized weakness, strength equal bilaterally - Psychiatric Psychiatric: Present: A&O x's 3 - Labs CBC & Chem 7: 03/01/20 06:10 03/01/20 06:10 Labs: Abnormal Lab Results - Last 24 Hours (Table) 03/01/20 03/01/20 Range/Units 06:10 06:10 WBC 0.3 L* (3.8-10.6) k/uL RBC 2.59 L (4.30-5.90) m/uL Hgb 8.5 L (13.0-17.5) gm/dL Hct 24.2 L (39.0-53.0) % Plt Count 7 L* (150-450) k/uL Potassium 3.4 L (3.5-5.5) mmol/L Calcium 7.1 L (8.7-10.3) mg/dL Total Protein 5.3 L (6.2-8.2) g/dL Albumin 3.00 L (3.80-4.90) g/dL Albumin/Globulin Ratio 1.30 L (1.60-3.17) g/dL Microbiology - Last 24 Hours (Table) 02/29/20 18:21 Blood Culture - Preliminary Blood No Growth after 24 hours 03/01/20 00:45 Urine Culture - Preliminary Urine,Voided 02/26/20 20:20 Blood Culture - Preliminary Blood No Growth after 72 hours 02/26/20 20:20 Blood Culture - Preliminary Blood No Growth after 72 hours Assessment and Plan (1) Anemia Current Visit: Yes Status: Acute Code(s): D64.9 - ANEMIA, UNSPECIFIED SNOMED Code(s): 881802023 (2) Neutropenic fever Current Visit: Yes Status: Acute Code(s): D70.9 - NEUTROPENIA, UNSPECIFIED; R50.81 - FEVER PRESENTING WITH CONDITIONS CLASSIFIED ELSEWHERE SNOMED Code(s): 669795328 (3) Thrombocytopenia Current Visit: Yes Status: Acute Code(s): D69.6 - THROMBOCYTOPENIA, UNSPECIFIED SNOMED Code(s): 582995052 Plan: AML Febrile Neutropenia: Persistent - Continues to still spike fevers - Melissa Cultures Pending - COVID Neg - Influenza Pending - Broad spectrum abx, anti-fungal added after no decrease in fevers this am, prophylaxis acyclovir added - Consult placed for Dr. Mathur to manage - Prophylaxis at discharge secondary to prolonged neutropenia anticpated with AML and initiation of induction - Do not advance diet please, clear liquids - CT abdomen and pelvis without significant evidence of colitis or obstruction Neutropenia and Diarrhea: - Ok to advance diet slowly to full liquids today. Severe Anemia: - transfuse hemoglobin less than 7. - Irradiated blood products only Thrombocytopenia: - No anticoagulation, NSAIDS, NO aspirin less than 50K - Monitor for bleeding Physician Attest: I have completed the full history and physical and developed the full impression and plan, agree with above dictated as a scribe.
--- NOTE | 2020-03-01 22:47 | PN ---
PROGRESS NOTE DATE OF SERVICE: 03/01/2020 REASON FOR FOLLOWUP: Febrile neutropenia. INTERVAL HISTORY: The patient seems to have persistent fever of 102 degrees Fahrenheit. The patient does not have any hemodynamic instability with these episodes of fever and the patient is not even tachycardic, currently saturating 97% on room air. The patient overall is feeling better. The patient denies having any chest pain or shortness of breath or cough. No abdominal pain, and the patient's diarrhea has improved. PHYSICAL EXAMINATION: Blood pressure 114/67 with a pulse of 97, temperature 99.8, T-max is 102.2. He is 97% on room air. General description is an elderly male lying in bed in no distress. RESPIRATORY SYSTEM: Unlabored breathing with decreased intensity of breath sounds. No wheeze. HEART: S1, S2. Regular rate and rhythm. ABDOMEN: Soft. No tenderness. SKIN EXAMINATION: Did have diffuse maculopapular rash. DIAGNOSTIC IMPRESSION AND PLAN: Patient with febrile neutropenia; could be related to extensive rash that this patient does have from drug allergy, as currently there is no obvious focus of infection, and he has a fever despite being on broad-spectrum antibiotic as well as anti-fungal antibiotics. We will add a short course of IV Solu-Medrol and see clinical response to it and monitor his clinical course closely. MMODL / IJN: [id number] /
[2020-03-02] MEDS: methylPREDNISolone SOD SUCCI 125 MG/2 ML VIAL IV SCH ×4 (01:01→17:36)
[2020-03-02] MEDS: SODIUM CHLORIDE 0.9% 1,000 ML IV SCH ×2 (01:01→20:51)
[2020-03-02] MEDS: ACETAMINOPHEN TAB 325 MG TAB PO PRN (02:16)
[2020-03-02 07:01] LABS: Glucose,Whole Blood 164 mg/dL (75-99)
[2020-03-02] MEDS: PANTOPRAZOLE 40 MG TABLET PO SCH ×2 (07:48→17:35)
[2020-03-02] MEDS ORDERED: VANCOMYCIN TROUGH DUE 1 EACH MISC MISCELLANE ONE (08:00)
[2020-03-02 10:02] LABS: HCT 23.2 % (39.0-53.0); HGB 7.8 gm/dL (13.0-17.5); MCH 31.7 pg (25.0-35.0); MCHC 33.7 g/dL (31.0-37.0); RBC 2.47 m/uL (4.30-5.90); RDW 14.8 % (11.5-15.5)
[2020-03-02] MEDS: lisinopriL 5 MG TAB PO SCH (10:07)
[2020-03-02] MEDS: GABAPENTIN 400 MG CAP PO SCH ×3 (10:07→21:02)
[2020-03-02] MEDS: FLUoxetine HCL 20 MG CAP PO SCH (10:07)
[2020-03-02] MEDS: clonazePAM 1 MG TAB PO SCH ×2 (10:07→21:02)
[2020-03-02] MEDS: hydrOXYzine HCL 25 MG TAB PO SCH ×3 (10:08→20:53)
[2020-03-02] MEDS: NYSTATIN 100,000 UNIT/ML SUSP 500,000 UNIT/5 ML CUP PO SCH ×4 (10:08→20:54)
[2020-03-02] MEDS: ACYCLOVIR 200 MG CAP PO SCH ×3 (10:08→20:54)
[2020-03-02] MEDS: FLUCONAZOLE 100 MG TAB PO SCH (10:09)
[2020-03-02] MEDS: VANCOMYCIN 1,500 MG in SODIUM CHLORIDE 0.9% 250 ML IVPB SCH ×2 (10:09→22:12)
[2020-03-02] MEDS: CEFEPIME 2 GM in SODIUM CHLORIDE 0.9% 100 ML IVPB SCH ×2 (10:09→20:51)
[2020-03-02 10:10] LABS: WBC 0.2 k/uL (3.8-10.6)
[2020-03-02 10:11] LABS: Platelet Count 10 k/uL (150-450)
[2020-03-02 11:48] LABS: Glucose,Whole Blood 181 mg/dL (75-99)
[2020-03-02 15:16] LABS: African American GFR (CKD) 80.1 (60.0-200.0); Albumin 3.4 g/dL (3.80-4.90); Albumin/Globulin Ratio 1.36 (1.60-3.17); Anion Gap 9.1 mmol/L (4.00-12.00); BUN/Creat Ratio 12.73 Ratio (12.00-20.00); Calcium 7.7 mg/dL (8.7-10.3); Carbon Dioxide 22.9 mmol/L (21.6-31.8); Globulin 2.5 g/dL (1.6-3.3); Non-African American GFR(CKD) 69.1 (60.0-200.0); Total Bilirubin 0.8 mg/dL (0.3-1.2); Total Protein 5.9 g/dL (6.2-8.2)
--- NOTE | 2020-03-02 16:34 | PN ---
PROGRESS NOTE DATE OF SERVICE: 03/02/2020 This is a 69-year-old gentleman who was admitted with neutropenic sepsis, also had significant allergy reaction also. The patient has continued fever. Patient was given IV steroids empirically by Dr. Mathur yesterday. The patient is feeling definitely better today. No chest pain, no palpitation. PHYSICAL EXAMINATION: Alert and oriented x3. Pulse is 76, blood pressure 107/60, respirations 16, temperature 97.6, pulse ox 99% on room air. HEENT: Conjunctivae normal. NECK: No jugular venous distension. CARDIOVASCULAR SYSTEM: S1, S2, muffled. RESPIRATORY SYSTEM: Breath sounds diminished at the bases, no rhonchi, no crackles. ABDOMEN: Soft, nontender. LEGS: No edema, no swelling. NERVOUS SYSTEM: No focal deficits. SKIN: Diffuse maculopapular rashes present. LABS: WBC 0.2, and platelets 210. Glucose 181. ASSESSMENT: 1. Neutropenic fever with neutropenic sepsis present on admission with continued fever, improving. 2. Severe pancytopenia secondary to chemotherapy. 3. Severe thrombocytopenia. 4. Acute leukemia on chemotherapy. 5. Oral ulcers. 6. Possible left basilar as well as subsegmental pneumonia, possibly gram-negative. 7. Diffuse skin lesions, possibly secondary to thrombocytopenia and chemotherapy. 8. Hyponatremia. 9. Elevated lactic acid secondary to sepsis. 10.History of cerebrovascular accident, transient ischemic attack. 11.Hypertension. 12.Hyperlipidemia. 13.History of left-sided pneumothorax. 14.History of hemorrhagic stroke. 15.History of left carotid stenosis 50%. 16.History of anxiety, depression. 17.History of ACL replacement. 18.FULL CODE. RECOMMENDATION: Recommend to continue current medications, management and symptomatic treatment. Otherwise, at this time I would recommend continue the steroids. Continue the antibiotics. Monitor closely. Monitor the counts. Increase ambulation. Further recommendations to follow. MMODL / IJN: [id number] /
[2020-03-02 17:02] LABS: Glucose,Whole Blood 219 mg/dL (75-99)
[2020-03-02] MEDS: INSULIN ASPART (NovoLOG) 100 UNIT/ML VIAL SQ SCH ×2 (17:50→22:12)
--- NOTE | 2020-03-02 18:42 | P.PN ---
<Ruth Monzon - Last Filed: 03/02/20 18:37> Subjective Progress Note Date: 03/02/20 Principal diagnosis: Still with fevers Status post platelet transfusion, feeling better with steroids. Rash improving. Fevers also improving Objective - Vital Signs Vital signs: Vital Signs Temp 97.6 F 03/02/20 13:00 Pulse 73 03/02/20 17:18 Resp 16 03/02/20 13:00 BP 112/59 03/02/20 17:18 Pulse Ox 99 03/02/20 13:00 Intake & Output 03/01/20 03/02/20 03/02/20 18:59 06:59 18:59 Intake Total 415 940 180 Output Total 200 300 Balance 415 740 -120 Intake: Intake, IV Titration 350 Amount Cefepime 2 gm In Sodium 100 Chloride 0.9% 100 ml @ 25 mls/hr IVPB Q12HR [facility] Rx #:[id number] Vancomycin 1,500 mg In 250 Sodium Chloride 0.9% 250 ml @ 125 mls/hr IVPB Q12HR [facility] Rx#:[id number] Oral 590 180 Blood Product 415 Platelet Irr Pheresis Pas 415 -C Unit [id number] Output: Urine 200 300 Other: Voiding Method Urinal Urinal # Voids 2 2 1 # Bowel Movements 1 2 - Exam - Constitutional General appearance: Present: cooperative, no acute distress - EENT Eyes: Present: EOMI, PERRLA ENT: Present: NA/AT, normal oropharynx - Respiratory Respiratory: bilateral: diminished - Cardiovascular Rhythm: regularly irregular - Gastrointestinal General gastrointestinal: Present: distended, tenderness - Integumentary Integumentary: Present: pale - Neurologic Neurologic Comment(s): non focal - Musculoskeletal Musculoskeletal: Present: generalized weakness, strength equal bilaterally - Psychiatric Psychiatric: Present: A&O x's 3 - Labs CBC & Chem 7: 03/02/20 08:20 03/02/20 08:20 Labs: Abnormal Lab Results - Last 24 Hours (Table) 03/02/20 03/02/20 03/02/20 Range/Units 07:00 08:20 08:20 WBC 0.2 L* (3.8-10.6) k/uL RBC 2.47 L (4.30-5.90) m/uL Hgb 7.8 L (13.0-17.5) gm/dL Hct 23.2 L (39.0-53.0) % Plt Count 10 L* (150-450) k/uL Potassium 3.0 L (3.5-5.5) mmol/L Glucose 166 H (70-110) mg/dL POC Glucose (mg/dL) 164 H (75-99) mg/dL Calcium 7.7 L (8.7-10.3) mg/dL Total Protein 5.9 L (6.2-8.2) g/dL Albumin 3.40 L (3.80-4.90) g/dL Albumin/Globulin Ratio 1.36 L (1.60-3.17) g/dL 03/02/20 03/02/20 Range/Units 11:47 17:01 WBC (3.8-10.6) k/uL RBC (4.30-5.90) m/uL Hgb (13.0-17.5) gm/dL Hct (39.0-53.0) % Plt Count (150-450) k/uL Potassium (3.5-5.5) mmol/L Glucose (70-110) mg/dL POC Glucose (mg/dL) 181 H 219 H (75-99) mg/dL Calcium (8.7-10.3) mg/dL Total Protein (6.2-8.2) g/dL Albumin (3.80-4.90) g/dL Albumin/Globulin Ratio (1.60-3.17) g/dL Microbiology - Last 24 Hours (Table) 03/01/20 00:45 Urine Culture - Final Urine,Voided 02/26/20 20:20 Blood Culture - Preliminary Blood No Growth after 96 hours 02/26/20 20:20 Blood Culture - Preliminary Blood No Growth after 96 hours 02/29/20 18:21 Blood Culture - Preliminary Blood No Growth after 24 hours Assessment and Plan (1) Anemia Current Visit: Yes Status: Acute Code(s): D64.9 - ANEMIA, UNSPECIFIED SNOMED Code(s): 448773923 (2) Neutropenic fever Current Visit: Yes Status: Acute Code(s): D70.9 - NEUTROPENIA, UNSPECIFIED; R50.81 - FEVER PRESENTING WITH CONDITIONS CLASSIFIED ELSEWHERE SNOMED Code(s): 738525555 (3) Thrombocytopenia Current Visit: Yes Status: Acute Code(s): D69.6 - THROMBOCYTOPENIA, UNSPECIFIED SNOMED Code(s): 069799621 Plan: AML Febrile Neutropenia: Persistent - Continues to still spike fevers - Melissa Cultures Pending - COVID Neg - Influenza Pending - Broad spectrum abx, anti-fungal added after no decrease in fevers this am, prophylaxis acyclovir added - Consult placed for Dr. Mathur to manage - Prophylaxis at discharge secondary to prolonged neutropenia anticpated with AML and initiation of induction - Do not advance diet please, clear liquids - CT abdomen and pelvis without significant evidence of colitis or obstruction Neutropenia and Diarrhea: - Ok to advance diet slowly to full liquids today. Severe Anemia: - transfuse hemoglobin less than 7. - Irradiated blood products only Thrombocytopenia: - No anticoagulation, NSAIDS, NO aspirin less than 50K - Monitor for bleeding Continue Steroids Continue PPI COntinue Dailys labs Physician Attest: I have completed the full history and physical and developed the full impression and plan, agree with above dictated as a scribe. <Edwin Rees - Last Filed: 03/03/20 00:33> Objective - Vital Signs Vital signs: Vital Signs Temp 98.0 F 03/02/20 19:54 Pulse 80 03/02/20 19:54 Resp 18 03/02/20 19:54 BP 112/56 03/02/20 19:54 Pulse Ox 98 03/02/20 19:54 Intake & Output 03/02/20 03/02/20 03/03/20 06:59 18:59 06:59 Intake Total 940 416 Output Total 200 300 Balance 740 116 Intake: Intake, IV Titration 350 Amount Cefepime 2 gm In Sodium 100 Chloride 0.9% 100 ml @ 25 mls/hr IVPB Q12HR [facility] Rx #:[id number] Vancomycin 1,500 mg In 250 Sodium Chloride 0.9% 250 ml @ 125 mls/hr IVPB Q12HR [facility] Rx#:[id number] Oral 590 416 Output: Urine 200 300 Other: Voiding Method Urinal # Voids 2 1 3 # Bowel Movements 2 - Labs CBC & Chem 7: 03/02/20 08:20 03/02/20 08:20 Labs: Abnormal Lab Results - Last 24 Hours (Table) 03/02/20 03/02/20 03/02/20 Range/Units 07:00 08:20 08:20 WBC 0.2 L* (3.8-10.6) k/uL RBC 2.47 L (4.30-5.90) m/uL Hgb 7.8 L (13.0-17.5) gm/dL Hct 23.2 L (39.0-53.0) % Plt Count 10 L* (150-450) k/uL Potassium 3.0 L (3.5-5.5) mmol/L Glucose 166 H (70-110) mg/dL POC Glucose (mg/dL) 164 H (75-99) mg/dL Calcium 7.7 L (8.7-10.3) mg/dL Total Protein 5.9 L (6.2-8.2) g/dL Albumin 3.40 L (3.80-4.90) g/dL Albumin/Globulin Ratio 1.36 L (1.60-3.17) g/dL 03/02/20 03/02/20 03/02/20 Range/Units 11:47 17:01 21:38 WBC (3.8-10.6) k/uL RBC (4.30-5.90) m/uL Hgb (13.0-17.5) gm/dL Hct (39.0-53.0) % Plt Count (150-450) k/uL Potassium (3.5-5.5) mmol/L Glucose (70-110) mg/dL POC Glucose (mg/dL) 181 H 219 H 176 H (75-99) mg/dL Calcium (8.7-10.3) mg/dL Total Protein (6.2-8.2) g/dL Albumin (3.80-4.90) g/dL Albumin/Globulin Ratio (1.60-3.17) g/dL Microbiology - Last 24 Hours (Table) 02/26/20 20:20 Blood Culture - Preliminary Blood No Growth after 120 hours 02/26/20 20:20 Blood Culture - Preliminary Blood No Growth after 120 hours 02/29/20 18:21 Blood Culture - Preliminary Blood No Growth after 48 hours 03/01/20 00:45 Urine Culture - Final Urine,Voided Assessment and Plan Plan: Correction: Abdominal exam improved. Advance diet to full liquids. Otherwise as above
[2020-03-02 21:47] LABS: Glucose,Whole Blood 176 mg/dL (75-99)
--- NOTE | 2020-03-02 22:51 | PN ---
PROGRESS NOTE DATE OF SERVICE: 03/02/2020 REASON FOR FOLLOWUP: 1. Febrile neutropenia. 2. Drug rash. INTERVAL HISTORY: Patient overall fever pattern has improved since yesterday after the patient started on Solu-Medrol with no fever recorded. Today the patient is feeling better. Denies having any chest pain. No shortness of breath or cough. No nausea, no vomiting. No abdominal pain. No diarrhea. PHYSICAL EXAMINATION: Blood pressure 107/61 with a pulse of 76. Temperature 97.6. He is 99% on room air. General description is an elderly male lying in bed in no distress. Respiratory system: Unlabored breathing, clear to auscultation anteriorly. Heart S1, S2. Regular rate and rhythm. ABDOMEN: Soft, no tenderness. Skin examination: The rash has slight decreased intensity. LABS: Hemoglobin 7.1, white count 0.2, creatinine is 1.1. DIAGNOSTIC IMPRESSION AND PLAN: Patient with febrile neutropenia. This patient did have extensive workup has been negative. Blood urine is negative. Tox is negative. CT of abdomen and pelvis was negative as well. The patient started on Solu-Medrol yesterday to continue with overall improvement in fever pattern as well as a rash to continue for now and monitor clinical course closely. MMODL / IJN: [id number] /
[2020-03-03] MEDS: methylPREDNISolone SOD SUCCI 125 MG/2 ML VIAL IV SCH ×4 (00:24→17:41)
[2020-03-03] MEDS: PANTOPRAZOLE 40 MG TABLET PO SCH ×2 (06:21→15:02)
[2020-03-03 06:46] LABS: INR 1.1 (<1.2); Partial Thromboplastin Time 29.4 sec (22.0-30.0); Prothrombin Time 11.6 sec (9.0-12.0)
[2020-03-03 06:52] LABS: MCH 31.2 pg (25.0-35.0); MCHC 33.8 g/dL (31.0-37.0); MCV 92.3 fL (80.0-100.0); Mean Platelet Volume 9.2; RBC 2.14 m/uL (4.30-5.90); RDW 15.2 % (11.5-15.5)
[2020-03-03 07:05] LABS: Glucose,Whole Blood 161 mg/dL (75-99)
[2020-03-03 07:19] LABS: WBC 0.2 k/uL (3.8-10.6)
[2020-03-03 07:20] LABS: HGB 6.7 gm/dL (13.0-17.5)
[2020-03-03 07:21] LABS: HCT 19.7 % (39.0-53.0); Platelet Count 9 k/uL (150-450)
[2020-03-03 09:28] LABS: Anisocytosis (M) Present; Poikilocytosis (M) Present
[2020-03-03] MEDS: ATORVASTATIN 40 MG TAB PO SCH (09:32)
[2020-03-03] MEDS: FLUoxetine HCL 20 MG CAP PO SCH (09:32)
[2020-03-03] MEDS: clonazePAM 1 MG TAB PO SCH ×2 (09:32→20:45)
[2020-03-03] MEDS: GABAPENTIN 400 MG CAP PO SCH ×3 (09:32→20:45)
[2020-03-03] MEDS: ACYCLOVIR 200 MG CAP PO SCH ×3 (09:33→20:45)
[2020-03-03] MEDS: CEFEPIME 2 GM in SODIUM CHLORIDE 0.9% 100 ML IVPB SCH ×2 (09:33→20:42)
[2020-03-03] MEDS: NYSTATIN 100,000 UNIT/ML SUSP 500,000 UNIT/5 ML CUP PO SCH ×4 (09:33→20:46)
[2020-03-03] MEDS: FLUCONAZOLE 100 MG TAB PO SCH (09:33)
[2020-03-03] MEDS: hydrOXYzine HCL 25 MG TAB PO SCH ×3 (09:34→20:45)
[2020-03-03] MEDS: lisinopriL 5 MG TAB PO SCH (09:39)
[2020-03-03] MEDS: INSULIN ASPART (NovoLOG) 100 UNIT/ML VIAL SQ SCH ×4 (09:39→21:21)
[2020-03-03 10:04] LABS: African American GFR (CKD) 107.1 (60.0-200.0); Albumin 2.9 g/dL (3.80-4.90); Albumin/Globulin Ratio 1.26 (1.60-3.17); Anion Gap 7.9 mmol/L (4.00-12.00); Calcium 7.5 mg/dL (8.7-10.3); Carbon Dioxide 22.1 mmol/L (21.6-31.8); Globulin 2.3 g/dL (1.6-3.3); Non-African American GFR(CKD) 92.4 (60.0-200.0); Potassium 3.3 mmol/L (3.5-5.5); Total Bilirubin 0.3 mg/dL (0.2-1.2); Total Protein 5.2 g/dL (6.2-8.2)
[2020-03-03 11:32] LABS: Glucose,Whole Blood 186 mg/dL (75-99)
[2020-03-03 14:24] VITALS: BMI 30.2
[2020-03-03] MEDS: VANCOMYCIN 1,500 MG in SODIUM CHLORIDE 0.9% 250 ML IVPB SCH (14:55)
[2020-03-03] MEDS: SODIUM CHLORIDE 0.9% 1,000 ML IV SCH ×2 (15:07→20:49)
[2020-03-03 16:52] LABS: Glucose,Whole Blood 203 mg/dL (75-99)
--- NOTE | 2020-03-03 18:48 | P.PN ---
Subjective Progress Note Date: 03/03/20 69-year-old male patient admitted with neutropenic fever/sepsis; patient did have significant ALLERGIC reaction while in the hospital treated with IV steroids Patient remains on IV antibiotics; hemoglobin down to 6.7 with platelets of 9.0; potassium at 3.3 Culture results are pending; covert 19 PCR is negative; patient remains on broad-spectrum IV antibiotics and oncology is following Objective - Vital Signs Vital signs: Vital Signs Temp 97.6 F 03/03/20 05:00 Pulse 70 03/03/20 08:00 Resp 18 03/03/20 08:00 BP 108/64 03/03/20 05:00 Pulse Ox 97 03/03/20 05:00 Intake & Output 03/02/20 03/03/20 03/03/20 18:59 06:59 18:59 Intake Total 416 1770 236 Output Total 300 Balance 116 1770 236 Intake: Intake, IV Titration 1070 Amount Cefepime 2 gm In Sodium 100 Chloride 0.9% 100 ml @ 25 mls/hr IVPB Q12HR [facility] Rx #:[id number] Sodium Chloride 0.9% 1, 720 000 ml @ 60 mls/hr IV . [id number] [facility] Rx#:[id number] Vancomycin 1,500 mg In 250 Sodium Chloride 0.9% 250 ml @ 125 mls/hr IVPB Q12HR [facility] Rx#:[id number] Oral 416 700 236 Output: Urine 300 Other: Voiding Method Urinal Urinal # Voids 1 4 - Exam PHYSICAL EXAMINATION: GENERAL: The patient is alert and oriented x3, not in any acute distress. Well developed, well nourished. HEENT: Pupils are round and equally reacting to light. EOMI. No scleral icterus. No conjunctival pallor. Normocephalic, atraumatic. No pharyngeal erythema. No thyromegaly. CARDIOVASCULAR: S1 and S2 present. No murmurs, rubs, or gallops. PULMONARY: Chest is clear to auscultation, no wheezing or crackles. ABDOMEN: Soft, nontender, nondistended, normoactive bowel sounds. No palpable organomegaly. MUSCULOSKELETAL: No joint swelling or deformity. EXTREMITIES: No cyanosis, clubbing, or pedal edema. NEUROLOGICAL: Gross neurological examination did not reveal any focal deficits. SKIN: No rashes. - Labs CBC & Chem 7: 03/03/20 05:36 03/03/20 05:36 Labs: Abnormal Lab Results - Last 24 Hours (Table) 03/02/20 03/02/20 03/02/20 Range/Units 08:20 17:01 21:38 WBC (3.8-10.6) k/uL RBC (4.30-5.90) m/uL Hgb (13.0-17.5) gm/dL Hct (39.0-53.0) % Plt Count (150-450) k/uL Potassium 3.0 L (3.5-5.5) mmol/L Chloride (96-109) mmol/L BUN/Creatinine Ratio (12.00-20.00) Ratio Glucose 166 H (70-110) mg/dL POC Glucose (mg/dL) 219 H 176 H (75-99) mg/dL Calcium 7.7 L (8.7-10.3) mg/dL Total Protein 5.9 L (6.2-8.2) g/dL Albumin 3.40 L (3.80-4.90) g/dL Albumin/Globulin Ratio 1.36 L (1.60-3.17) g/dL 03/03/20 03/03/20 03/03/20 Range/Units 05:36 05:36 07:03 WBC 0.2 L* (3.8-10.6) k/uL RBC 2.14 L (4.30-5.90) m/uL Hgb 6.7 L* (13.0-17.5) gm/dL Hct 19.7 L* (39.0-53.0) % Plt Count 9 L* (150-450) k/uL Potassium 3.3 L (3.5-5.5) mmol/L Chloride 112 H (96-109) mmol/L BUN/Creatinine Ratio 25.00 H (12.00-20.00) Ratio Glucose 158 H (70-110) mg/dL POC Glucose (mg/dL) 161 H (75-99) mg/dL Calcium 7.5 L (8.7-10.3) mg/dL Total Protein 5.2 L (6.2-8.2) g/dL Albumin 2.90 L (3.80-4.90) g/dL Albumin/Globulin Ratio 1.26 L (1.60-3.17) g/dL 03/03/20 Range/Units 11:31 WBC (3.8-10.6) k/uL RBC (4.30-5.90) m/uL Hgb (13.0-17.5) gm/dL Hct (39.0-53.0) % Plt Count (150-450) k/uL Potassium (3.5-5.5) mmol/L Chloride (96-109) mmol/L BUN/Creatinine Ratio (12.00-20.00) Ratio Glucose (70-110) mg/dL POC Glucose (mg/dL) 186 H (75-99) mg/dL Calcium (8.7-10.3) mg/dL Total Protein (6.2-8.2) g/dL Albumin (3.80-4.90) g/dL Albumin/Globulin Ratio (1.60-3.17) g/dL Microbiology - Last 24 Hours (Table) 02/26/20 20:20 Blood Culture - Preliminary Blood No Growth after 120 hours 02/26/20 20:20 Blood Culture - Preliminary Blood No Growth after 120 hours 02/29/20 18:21 Blood Culture - Preliminary Blood No Growth after 48 hours 03/01/20 00:45 Urine Culture - Final Urine,Voided Assessment and Plan Assessment: Febrile Neutropenia: Persistent; AML - Continues to still spike fevers - Melissa Cultures Pending - COVID Neg - Influenza Pending - Broad spectrum abx, anti-fungal added after no decrease in fevers this am, prophylaxis acyclovir added - Consult placed for Dr. Mathur to manage - Prophylaxis at discharge secondary to prolonged neutropenia anticpated with AML and initiation of induction - Do not advance diet please, clear liquids - CT abdomen and pelvis without significant evidence of colitis or obstruction Neutropenia and Diarrhea: - Ok to advance diet slowly to full liquids today. Severe Anemia: - transfuse hemoglobin less than 7. - Irradiated blood products only Thrombocytopenia: - No anticoagulation, NSAIDS, NO aspirin less than 50K - Monitor for bleeding Continue Steroids Continue PPI COntinue Dailys labs
[2020-03-03 21:04] LABS: Glucose,Whole Blood 169 mg/dL (75-99)
--- NOTE | 2020-03-03 21:55 | P.PN ---
Subjective Progress Note Date: 03/03/20 The patient states that he overall feels better. He is tolerating full liquids well. He is still having 1 bowel movement a day, which is now firmer. He has not had any fever over the past 24 hours. Rash also appears to be improving slowly. Objective - Vital Signs Vital signs: Vital Signs Temp 97.5 F L 03/03/20 19:39 Pulse 81 03/03/20 19:39 Resp 18 03/03/20 19:39 BP 113/56 03/03/20 19:39 Pulse Ox 98 03/03/20 19:39 Intake & Output 03/03/20 03/03/20 03/04/20 06:59 18:59 06:59 Intake Total 1770 833 Output Total 600 Balance 1770 233 Weight 82.554 kg Intake: Intake, IV Titration 1070 125 Amount Cefepime 2 gm In Sodium 100 Chloride 0.9% 100 ml @ 25 mls/hr IVPB Q12HR [facility] Rx #:[id number] Sodium Chloride 0.9% 1, 720 000 ml @ 60 mls/hr IV . [id number] [facility] Rx#:[id number] Vancomycin 1,500 mg In 125 Sodium Chloride 0.9% 250 ml @ 125 mls/hr IVPB Q12H [facility] Rx#:[id number] Vancomycin 1,500 mg In 250 Sodium Chloride 0.9% 250 ml @ 125 mls/hr IVPB Q12HR [facility] Rx#:[id number] Oral 700 708 Output: Urine 600 Other: Voiding Method Urinal # Voids 4 4 # Bowel Movements 1 - Constitutional General appearance: Present: no acute distress - EENT Eyes: Present: EOMI ENT: Present: hearing grossly normal, normal oropharynx - Respiratory Respiratory: bilateral: CTA - Cardiovascular Rhythm: regular Heart sounds: normal: S1, S2 - Gastrointestinal General gastrointestinal: Present: normal bowel sounds, soft - Integumentary Integumentary: Present: rash (Dense and confluentStarting to fade over abdomen and chest. Lower extremity distal last seems to be more purpuric, related to low plt. Otherwise consistent with drug rash) - Neurologic Neurologic: Present: CNII-XII intact - Musculoskeletal Musculoskeletal: Present: generalized weakness, strength equal bilaterally - Psychiatric Psychiatric: Present: A&O x's 3, appropriate affect - Labs CBC & Chem 7: 03/03/20 05:36 03/03/20 05:36 Labs: Abnormal Lab Results - Last 24 Hours (Table) 03/02/20 03/03/20 03/03/20 Range/Units 21:38 05:36 05:36 WBC 0.2 L* (3.8-10.6) k/uL RBC 2.14 L (4.30-5.90) m/uL Hgb 6.7 L* (13.0-17.5) gm/dL Hct 19.7 L* (39.0-53.0) % Plt Count 9 L* (150-450) k/uL Potassium 3.3 L (3.5-5.5) mmol/L Chloride 112 H (96-109) mmol/L BUN/Creatinine Ratio 25.00 H (12.00-20.00) Ratio Glucose 158 H (70-110) mg/dL POC Glucose (mg/dL) 176 H (75-99) mg/dL Calcium 7.5 L (8.7-10.3) mg/dL Total Protein 5.2 L (6.2-8.2) g/dL Albumin 2.90 L (3.80-4.90) g/dL Albumin/Globulin Ratio 1.26 L (1.60-3.17) g/dL Crossmatch 03/03/20 03/03/20 03/03/20 Range/Units 07:03 11:31 15:26 WBC (3.8-10.6) k/uL RBC (4.30-5.90) m/uL Hgb (13.0-17.5) gm/dL Hct (39.0-53.0) % Plt Count (150-450) k/uL Potassium (3.5-5.5) mmol/L Chloride (96-109) mmol/L BUN/Creatinine Ratio (12.00-20.00) Ratio Glucose (70-110) mg/dL POC Glucose (mg/dL) 161 H 186 H (75-99) mg/dL Calcium (8.7-10.3) mg/dL Total Protein (6.2-8.2) g/dL Albumin (3.80-4.90) g/dL Albumin/Globulin Ratio (1.60-3.17) g/dL Crossmatch See Detail 03/03/20 03/03/20 Range/Units 16:50 21:02 WBC (3.8-10.6) k/uL RBC (4.30-5.90) m/uL Hgb (13.0-17.5) gm/dL Hct (39.0-53.0) % Plt Count (150-450) k/uL Potassium (3.5-5.5) mmol/L Chloride (96-109) mmol/L BUN/Creatinine Ratio (12.00-20.00) Ratio Glucose (70-110) mg/dL POC Glucose (mg/dL) 203 H 169 H (75-99) mg/dL Calcium (8.7-10.3) mg/dL Total Protein (6.2-8.2) g/dL Albumin (3.80-4.90) g/dL Albumin/Globulin Ratio (1.60-3.17) g/dL Crossmatch Microbiology - Last 24 Hours (Table) 02/29/20 18:21 Blood Culture - Preliminary Blood No Growth after 72 hours 02/26/20 20:20 Blood Culture - Preliminary Blood No Growth after 120 hours 02/26/20 20:20 Blood Culture - Preliminary Blood No Growth after 120 hours Assessment and Plan (1) Neutropenic fever Narrative/Plan: Afebrile over past 24 hours. Cultures remain negative. If patient remains afebrile overnight, then potentially discharged on broad-spectrum oral antibiotics can be considered. Typically for post-chemotherapy patient's for acute leukemia, we would place him on prophylactic regimen of fluoroquinolone, fluconazole, and acyclovir. Defer to ID for final outpatient regimen Neutrophil recovery with this regimen is generally not expected for about 3-4 weeks Current Visit: Yes Status: Acute Code(s): D70.9 - NEUTROPENIA, UNSPECIFIED; R50.81 - FEVER PRESENTING WITH CONDITIONS CLASSIFIED ELSEWHERE SNOMED Code(s): 324251455 (2) Abdominal pain Narrative/Plan: This has resolved. Abdominal exam is fairly benign today. Discussed with patient about advancing diet. He states that he would continue his current diet if discharge is anticipating the next 1-2 days. He will advance at home depending on his symptoms Current Visit: Yes Status: Acute Code(s): R10.9 - UNSPECIFIED ABDOMINAL PAIN SNOMED Code(s): 75522107 (3) Pancytopenia due to antineoplastic chemotherapy Narrative/Plan: 1 unit PRBC and 1 unit platelets will be transfused. Continue to monitor and transfuse to keep hemoglobin greater than 7, and platelets greater than 10 Current Visit: Yes Status: Acute Code(s): D61.810 - ANTINEOPLASTIC CHEMOTHERAPY INDUCED PANCYTOPENIA; T45.1X5A - ADVERSE EFFECT OF ANTINEOPLASTIC AND IMMUNOSUP DRUGS, INIT SNOMED Code(s): 619947040995668 (4) Acute myeloid leukemia Narrative/Plan: The tests post induction chemotherapy. Continue to monitor with supportive treatments still cell recovery occurs. Bone marrow will be repeated at that time Current Visit: Yes Status: Acute Code(s): C92.00 - ACUTE MYELOBLASTIC LEUKEMIA, NOT HAVING ACHIEVED REMISSION SNOMED Code(s): 50112660
--- NOTE | 2020-03-03 22:43 | PN ---
PROGRESS NOTE DATE OF SERVICE: 03/03/2020 REASON FOR FOLLOWUP: Fever, possibly drug rash. INTERVAL HISTORY: Patient overall fever pattern has improved. No fever has been reported by nursing in the last 24 hours. The patient is feeling better. He is breathing comfortably. The patient denies having any chest pain or shortness of breath or cough. No abdominal pain and diarrhea has resolved. PHYSICAL EXAMINATION: Blood pressure 113/56, pulse of 81, temperature 98.5. He is 98% room air. General description: The patient is an elderly male lying in bed in no distress. Respiratory system: Unlabored breathing, clear to auscultation anteriorly. Heart S1, S2. Regular rate and rhythm. Abdomen soft, no tenderness. Skin: Rash has decreased in intensity. LABS: Hemoglobin 6.7, white count 0.2, creatinine 0.8. DIAGNOSTIC IMPRESSION AND PLAN: Patient with fever, could have been more likely related to the drug rash from his chemo as the patient's fever responded to the Solu-Medrol that was added with the culture negative for any resistant gram-positive. Vancomycin will be discontinued and then considered tapering course of steroids on discharge for the rash and possible source of his fever. Will discuss further with admitting team. MMODL / IJN: [id number] /
[2020-03-04] MEDS: methylPREDNISolone SOD SUCCI 125 MG/2 ML VIAL IV SCH ×4 (01:31→18:41)
[2020-03-04] MEDS ORDERED: VANCOMYCIN 1,500 MG in SODIUM CHLORIDE 0.9% 250 ML IVPB SCH (02:00)
[2020-03-04 06:21] LABS: HCT 20.5 % (39.0-53.0); HGB 7.1 gm/dL (13.0-17.5); MCH 31.7 pg (25.0-35.0); MCHC 34.4 g/dL (31.0-37.0); MCV 92.1 fL (80.0-100.0); Mean Platelet Volume 8.1; RBC 2.23 m/uL (4.30-5.90); RDW 14.8 % (11.5-15.5)
[2020-03-04 06:29] LABS: Platelet Count 10 k/uL (150-450); WBC 0.3 k/uL (3.8-10.6)
[2020-03-04] MEDS: PANTOPRAZOLE 40 MG TABLET PO SCH ×2 (06:40→18:40)
[2020-03-04 07:38] LABS: Glucose,Whole Blood 153 mg/dL (75-99)
[2020-03-04] MEDS: clonazePAM 1 MG TAB PO SCH ×2 (08:52→20:43)
[2020-03-04] MEDS: GABAPENTIN 400 MG CAP PO SCH ×3 (08:52→20:43)
[2020-03-04] MEDS: lisinopriL 5 MG TAB PO SCH (08:52)
[2020-03-04] MEDS: FLUoxetine HCL 20 MG CAP PO SCH (08:52)
[2020-03-04] MEDS: ATORVASTATIN 40 MG TAB PO SCH (08:52)
[2020-03-04] MEDS: INSULIN ASPART (NovoLOG) 100 UNIT/ML VIAL SQ SCH ×4 (08:52→22:04)
[2020-03-04] MEDS: ACYCLOVIR 200 MG CAP PO SCH ×3 (08:57→20:45)
[2020-03-04] MEDS: FLUCONAZOLE 100 MG TAB PO SCH (08:58)
[2020-03-04] MEDS: hydrOXYzine HCL 25 MG TAB PO SCH ×3 (08:58→20:45)
[2020-03-04] MEDS: NYSTATIN 100,000 UNIT/ML SUSP 500,000 UNIT/5 ML CUP PO SCH ×4 (08:59→20:45)
[2020-03-04] MEDS: CEFEPIME 2 GM in SODIUM CHLORIDE 0.9% 100 ML IVPB SCH ×2 (09:42→20:43)
[2020-03-04 09:57] LABS: African American GFR (CKD) 107.1 (60.0-200.0); Albumin/Globulin Ratio 1.43 (1.60-3.17); Anion Gap 8.1 mmol/L (4.00-12.00); BUN/Creat Ratio 26.25 Ratio (12.00-20.00); Calcium 7.3 mg/dL (8.7-10.3); Carbon Dioxide 22.9 mmol/L (21.6-31.8); Globulin 2.1 g/dL (1.6-3.3); Non-African American GFR(CKD) 92.4 (60.0-200.0); Potassium 3.2 mmol/L (3.5-5.5); Total Bilirubin 0.4 mg/dL (0.3-1.2); Total Protein 5.1 g/dL (6.2-8.2)
[2020-03-04 12:02] LABS: Glucose,Whole Blood 200 mg/dL (75-99)
[2020-03-04] MEDS ORDERED: POTASSIUM CHLORIDE ER 10 MEQ TAB.ER.PRT PO STA (12:51)
--- NOTE | 2020-03-04 14:53 | P.PN ---
Subjective Progress Note Date: 03/04/20 Principal diagnosis: Febrile neutropenia Pancytopenia due to chemotherapy Colitis due to chemotherapy Doing well. Diarrhea much better. No bleeding. Objective - Vital Signs Vital signs: Vital Signs Temp 98 F 03/04/20 13:00 Pulse 74 03/04/20 13:00 Resp 16 03/04/20 13:00 BP 129/71 03/04/20 13:00 Pulse Ox 98 03/04/20 13:00 Intake & Output 03/03/20 03/04/20 03/04/20 18:59 06:59 18:59 Intake Total 833 1182 290 Output Total 600 500 Balance 233 1182 -210 Weight 82.554 kg Intake: Intake, IV Titration 125 420 Amount Cefepime 2 gm In Sodium 100 Chloride 0.9% 100 ml @ 25 mls/hr IVPB Q12HR [facility] Rx #:[id number] Sodium Chloride 0.9% 1, 320 000 ml @ 60 mls/hr IV . [id number] [facility] Rx#:[id number] Vancomycin 1,500 mg In 125 Sodium Chloride 0.9% 250 ml @ 125 mls/hr IVPB Q12H [facility] Rx#:[id number] Oral 708 200 290 Blood Product 562 Platelet Irr Pheresis Pas 252 -C Unit [id number] Rc Pheresis Irrad As 3 310 Unit [id number] Output: Urine 600 500 Other: Voiding Method Urinal Urinal # Voids 4 3 3 # Bowel Movements 1 1 1 - Exam Gen.: No acute distress. HEENT: Conjunctival pallor. No scleral icterus. Neck: Neck supple. Lungs: No respiratory distress. Heart: Regular rate. No lower extremity edema. Abdomen: Soft. MSK: Appropriate strength in all 4 extremities. Neuro: Alert and oriented 3. Skin: No jaundice. Psych: Appropriate affect. - Labs CBC & Chem 7: 03/04/20 05:45 03/04/20 05:45 Labs: Abnormal Lab Results - Last 24 Hours (Table) 03/03/20 03/03/20 03/03/20 Range/Units 15:26 16:50 21:02 WBC (3.8-10.6) k/uL RBC (4.30-5.90) m/uL Hgb (13.0-17.5) gm/dL Hct (39.0-53.0) % Plt Count (150-450) k/uL Potassium (3.5-5.5) mmol/L Chloride (96-109) mmol/L BUN/Creatinine Ratio (12.00-20.00) Ratio Glucose (70-110) mg/dL POC Glucose (mg/dL) 203 H 169 H (75-99) mg/dL Calcium (8.7-10.3) mg/dL Total Protein (6.2-8.2) g/dL Albumin (3.80-4.90) g/dL Albumin/Globulin Ratio (1.60-3.17) g/dL Crossmatch See Detail 03/04/20 03/04/20 03/04/20 Range/Units 05:45 05:45 07:36 WBC 0.3 L* (3.8-10.6) k/uL RBC 2.23 L (4.30-5.90) m/uL Hgb 7.1 L (13.0-17.5) gm/dL Hct 20.5 L (39.0-53.0) % Plt Count 10 L* (150-450) k/uL Potassium 3.2 L (3.5-5.5) mmol/L Chloride 113 H (96-109) mmol/L BUN/Creatinine Ratio 26.25 H (12.00-20.00) Ratio Glucose 152 H (70-110) mg/dL POC Glucose (mg/dL) 153 H (75-99) mg/dL Calcium 7.3 L (8.7-10.3) mg/dL Total Protein 5.1 L (6.2-8.2) g/dL Albumin 3.00 L (3.80-4.90) g/dL Albumin/Globulin Ratio 1.43 L (1.60-3.17) g/dL Crossmatch 03/04/20 Range/Units 12:00 WBC (3.8-10.6) k/uL RBC (4.30-5.90) m/uL Hgb (13.0-17.5) gm/dL Hct (39.0-53.0) % Plt Count (150-450) k/uL Potassium (3.5-5.5) mmol/L Chloride (96-109) mmol/L BUN/Creatinine Ratio (12.00-20.00) Ratio Glucose (70-110) mg/dL POC Glucose (mg/dL) 200 H (75-99) mg/dL Calcium (8.7-10.3) mg/dL Total Protein (6.2-8.2) g/dL Albumin (3.80-4.90) g/dL Albumin/Globulin Ratio (1.60-3.17) g/dL Crossmatch Microbiology - Last 24 Hours (Table) 02/26/20 20:20 Blood Culture - Final Blood No Growth after 144 hours 02/26/20 20:20 Blood Culture - Final Blood No Growth after 144 hours 02/29/20 18:21 Blood Culture - Preliminary Blood No Growth after 72 hours Assessment and Plan Assessment: 1. Febrile neutropenia 2. Colitis due to chemotherapy 3. Pancytopenia due to chemotherapy 4. MDS with AML transformation Plan: Mr. 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 Overall improving. Continues to have pancytopenia due to chemotherapy. S/p BMB to determine if he is in remission. Awaiting results. Continue supportive transfusion, leukoreduced/irradiated pRBC and plt for Hgb <7 and plt <10. No transfusions today. He may need transfusion tomorrow. No G-CSF for now. Discussed with pt and he is agreeable with the plan. If pt to be discharged, he will need prophylactic antimicrobials, fluoroquinilone, fluconazole, and acyclovir.
[2020-03-04 17:04] LABS: Glucose,Whole Blood 163 mg/dL (75-99)
[2020-03-04 20:32] LABS: Glucose,Whole Blood 185 mg/dL (75-99)
[2020-03-04] MEDS: SODIUM CHLORIDE 0.9% 1,000 ML IV SCH (20:43)
--- NOTE | 2020-03-04 22:50 | PN ---
PROGRESS NOTE DATE OF SERVICE: 03/04/2020 REASON FOR FOLLOWUP: Febrile neutropenia and drug rash. INTERVAL HISTORY: Patient is currently afebrile. The patient was started on steroids. The patient is feeling better as well. The patient denies having any chest pain. No shortness of breath or cough. No abdominal pain. Diarrhea has improved and the skin rash has decreased intensity. PHYSICAL EXAMINATION: Blood pressure 133/73 with a pulse of 74, temperature 98.2. He is 96% on room air. General description is an elderly male lying in bed in no distress. Respiratory system: Unlabored breathing, clear to auscultation anteriorly. Heart S1, S2. Regular rate and rhythm. Abdomen soft, no tenderness. LABS: Hemoglobin 7, white count 0.3, creatinine 0.8. DIAGNOSTIC IMPRESSION AND PLAN: Patient admitted to the hospital with febrile neutropenia, source likely generalized drug rash, possibly from his chemo. The patient's fever responded with Solu-Medrol that will be transitioned to a short course of prednisone. Monitor his clinical course closely. Continue supportive care. MMODL / IJN: [id number] /
[2020-03-05] MEDS: methylPREDNISolone SOD SUCCI 125 MG/2 ML VIAL IV SCH ×4 (00:58→17:22)
[2020-03-05 06:30] LABS: HCT 21.1 % (39.0-53.0); HGB 7.2 gm/dL (13.0-17.5); MCH 31.6 pg (25.0-35.0); MCHC 33.9 g/dL (31.0-37.0); MCV 93.4 fL (80.0-100.0); Mean Platelet Volume 8.1; RBC 2.26 m/uL (4.30-5.90); RDW 15.1 % (11.5-15.5)
[2020-03-05 06:35] LABS: WBC 0.3 k/uL (3.8-10.6)
[2020-03-05 06:36] LABS: Platelet Count 9 k/uL (150-450)
[2020-03-05 07:19] LABS: Glucose,Whole Blood 149 mg/dL (75-99)
[2020-03-05] MEDS ORDERED: Potassium Replacement Protocol 1 EACH MISC MISCELLANE PRN (07:39)
[2020-03-05] MEDS: PANTOPRAZOLE 40 MG TABLET PO SCH ×2 (08:25→17:22)
[2020-03-05] MEDS: lisinopriL 5 MG TAB PO SCH (08:25)
[2020-03-05] MEDS: clonazePAM 1 MG TAB PO SCH ×2 (08:25→21:29)
[2020-03-05] MEDS: hydrOXYzine HCL 25 MG TAB PO SCH ×3 (08:26→21:30)
[2020-03-05] MEDS: ATORVASTATIN 40 MG TAB PO SCH (08:26)
[2020-03-05] MEDS: FLUoxetine HCL 20 MG CAP PO SCH (08:26)
[2020-03-05] MEDS: POTASSIUM CHLORIDE ER 20 MEQ TAB.ER PO SCH (08:26)
[2020-03-05] MEDS: GABAPENTIN 400 MG CAP PO SCH ×3 (08:26→21:29)
[2020-03-05] MEDS: NYSTATIN 100,000 UNIT/ML SUSP 500,000 UNIT/5 ML CUP PO SCH ×4 (08:28→21:30)
[2020-03-05] MEDS: ACYCLOVIR 200 MG CAP PO SCH ×3 (08:28→21:30)
[2020-03-05] MEDS: INSULIN ASPART (NovoLOG) 100 UNIT/ML VIAL SQ SCH ×4 (08:28→21:30)
[2020-03-05] MEDS: FLUCONAZOLE 100 MG TAB PO SCH (08:29)
[2020-03-05] MEDS: CEFEPIME 2 GM in SODIUM CHLORIDE 0.9% 100 ML IVPB SCH ×2 (09:01→21:29)
[2020-03-05 10:08] LABS: African American GFR (CKD) 107.1 (60.0-200.0); Albumin 2.9 g/dL (3.80-4.90); Albumin/Globulin Ratio 1.26 (1.60-3.17); Anion Gap 7.3 mmol/L (4.00-12.00); BUN/Creat Ratio 33.75 Ratio (12.00-20.00); Calcium 7.7 mg/dL (8.7-10.3); Carbon Dioxide 23.7 mmol/L (21.6-31.8); Globulin 2.3 g/dL (1.6-3.3); Non-African American GFR(CKD) 92.4 (60.0-200.0); Potassium 3.8 mmol/L (3.5-5.5); Total Bilirubin 0.3 mg/dL (0.2-1.2); Total Protein 5.2 g/dL (6.2-8.2)
[2020-03-05] MEDS: SODIUM CHLORIDE 0.9% 1,000 ML IV SCH (12:38)
--- NOTE | 2020-03-05 12:45 | P.PN ---
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 69-year-old male patient admitted with neutropenic fever/sepsis; patient did have significant ALLERGIC reaction while in the hospital treated with IV steroids Patient remains on IV antibiotics; hemoglobin down to 6.7 with platelets of 9.0; potassium at 3.3 Culture results are pending; covert 19 PCR is negative; patient remains on broad-spectrum IV antibiotics and oncology is following 03/04/2020 Patient is seen and evaluated in room resting comfortably; patient remains pancytopenic; heme/oncology following; patient is status post bone marrow biopsy with results pending; oncology recommending to continue supportive care with transfusion with packed RBCs for hemoglobin less than 7 and platelets if count is less than 10; we will continue to monitor CBC; oncology recommending to continue with prophylactic antibiotics in form of fluoroquinolone and antiviral and fluconazole therapy; await ID recommendations Objective - Vital Signs Vital signs: Vital Signs Temp 98.1 F 03/04/20 04:05 Pulse 68 03/04/20 08:00 Resp 18 03/04/20 08:00 BP 124/65 03/04/20 04:05 Pulse Ox 95 03/04/20 04:05 Intake & Output 03/03/20 03/04/20 03/04/20 18:59 06:59 18:59 Intake Total 833 1182 110 Output Total 600 300 Balance 233 1182 -190 Weight 82.554 kg Intake: Intake, IV Titration 125 420 Amount Cefepime 2 gm In Sodium 100 Chloride 0.9% 100 ml @ 25 mls/hr IVPB Q12HR [facility] Rx #:[id number] Sodium Chloride 0.9% 1, 320 000 ml @ 60 mls/hr IV . [id number] [facility] Rx#:[id number] Vancomycin 1,500 mg In 125 Sodium Chloride 0.9% 250 ml @ 125 mls/hr IVPB Q12H [facility] Rx#:[id number] Oral 708 200 110 Blood Product 562 Platelet Irr Pheresis Pas 252 -C Unit [id number] Rc Pheresis Irrad As 3 310 Unit [id number] Output: Urine 600 300 Other: Voiding Method Urinal Urinal # Voids 4 3 3 # Bowel Movements 1 1 1 - Exam PHYSICAL EXAMINATION: GENERAL: The patient is alert and oriented x3, not in any acute distress. Well developed, well nourished. HEENT: Pupils are round and equally reacting to light. EOMI. No scleral icterus. No conjunctival pallor. Normocephalic, atraumatic. No pharyngeal erythema. No thyromegaly. CARDIOVASCULAR: S1 and S2 present. No murmurs, rubs, or gallops. PULMONARY: Chest is clear to auscultation, no wheezing or crackles. ABDOMEN: Soft, nontender, nondistended, normoactive bowel sounds. No palpable organomegaly. MUSCULOSKELETAL: No joint swelling or deformity. EXTREMITIES: No cyanosis, clubbing, or pedal edema. NEUROLOGICAL: Gross neurological examination did not reveal any focal deficits. SKIN: No rashes. - Labs CBC & Chem 7: 03/05/20 05:52 03/05/20 05:52 Labs: Abnormal Lab Results - Last 24 Hours (Table) 03/03/20 03/03/20 03/03/20 Range/Units 15:26 16:50 21:02 WBC (3.8-10.6) k/uL RBC (4.30-5.90) m/uL Hgb (13.0-17.5) gm/dL Hct (39.0-53.0) % Plt Count (150-450) k/uL Potassium (3.5-5.5) mmol/L Chloride (96-109) mmol/L BUN/Creatinine Ratio (12.00-20.00) Ratio Glucose (70-110) mg/dL POC Glucose (mg/dL) 203 H 169 H (75-99) mg/dL Calcium (8.7-10.3) mg/dL Total Protein (6.2-8.2) g/dL Albumin (3.80-4.90) g/dL Albumin/Globulin Ratio (1.60-3.17) g/dL Crossmatch See Detail 03/04/20 03/04/20 03/04/20 Range/Units 05:45 05:45 07:36 WBC 0.3 L* (3.8-10.6) k/uL RBC 2.23 L (4.30-5.90) m/uL Hgb 7.1 L (13.0-17.5) gm/dL Hct 20.5 L (39.0-53.0) % Plt Count 10 L* (150-450) k/uL Potassium 3.2 L (3.5-5.5) mmol/L Chloride 113 H (96-109) mmol/L BUN/Creatinine Ratio 26.25 H (12.00-20.00) Ratio Glucose 152 H (70-110) mg/dL POC Glucose (mg/dL) 153 H (75-99) mg/dL Calcium 7.3 L (8.7-10.3) mg/dL Total Protein 5.1 L (6.2-8.2) g/dL Albumin 3.00 L (3.80-4.90) g/dL Albumin/Globulin Ratio 1.43 L (1.60-3.17) g/dL Crossmatch 03/04/20 Range/Units 12:00 WBC (3.8-10.6) k/uL RBC (4.30-5.90) m/uL Hgb (13.0-17.5) gm/dL Hct (39.0-53.0) % Plt Count (150-450) k/uL Potassium (3.5-5.5) mmol/L Chloride (96-109) mmol/L BUN/Creatinine Ratio (12.00-20.00) Ratio Glucose (70-110) mg/dL POC Glucose (mg/dL) 200 H (75-99) mg/dL Calcium (8.7-10.3) mg/dL Total Protein (6.2-8.2) g/dL Albumin (3.80-4.90) g/dL Albumin/Globulin Ratio (1.60-3.17) g/dL Crossmatch Microbiology - Last 24 Hours (Table) 02/26/20 20:20 Blood Culture - Final Blood No Growth after 144 hours 02/26/20 20:20 Blood Culture - Final Blood No Growth after 144 hours 02/29/20 18:21 Blood Culture - Preliminary Blood No Growth after 72 hours Assessment and Plan Assessment: Febrile Neutropenia: Persistent; AML - Continues to still spike fevers - Melissa Cultures Pending - COVID Neg - Influenza Pending - Broad spectrum abx, anti-fungal added after no decrease in fevers this am, prophylaxis acyclovir added - Consult placed for Dr. Mathur to manage - Prophylaxis at discharge secondary to prolonged neutropenia anticpated with AML and initiation of induction - Do not advance diet please, clear liquids - CT abdomen and pelvis without significant evidence of colitis or obstruction Neutropenia and Diarrhea: - Ok to advance diet slowly to full liquids today. Severe Anemia: - transfuse hemoglobin less than 7. - Irradiated blood products only Thrombocytopenia: - No anticoagulation, NSAIDS, NO aspirin less than 50K - Monitor for bleeding Continue Steroids Continue PPI COntinue Dailys labs
--- NOTE | 2020-03-05 16:12 | PN ---
PROGRESS NOTE DATE OF SERVICE: 03/05/2020 REASON FOR FOLLOWUP: 1. Febrile neutropenia. 2. Drug rash. INTERVAL COURSE: The patient is currently afebrile. The patient is feeling better. Breathing comfortably. Denies having any chest pain. No shortness of breath. No cough. No nausea. No vomiting. No abdominal pain. Diarrhea has improved. PHYSICAL EXAMINATION: Blood pressure 132/66, pulse of 74, temperature 97.3. He is 96% on room air. General description is an elderly male lying in bed in no distress. Respiratory system: Unlabored breathing, clear to auscultation anteriorly. Heart S1, S2. Regular rate and rhythm. Abdomen soft, no tenderness. LABS: Hemoglobin 7.1, white count 0.6, creatinine 0.8. Culture has been negative. DIAGNOSTIC IMPRESSION AND PLAN: Patient with febrile neutropenia source likely drug rash to his chemo. The patient clinically responded with addition of the Solu-Medrol. Hence recommend finish therapy with a short course of prednisone tapering course. This was discussed with the admitting physician. The patient still neutropenic, can finish short course of oral Augmentin and Diflucan. Questions, concerns were answered. MMODL / IJN: [id number] /
[2020-03-05 17:03] LABS: Glucose,Whole Blood 160 mg/dL (75-99)
--- NOTE | 2020-03-05 18:49 | P.PN ---
Subjective Progress Note Date: 03/05/20 Principal diagnosis: Febrile neutropenia Colitis due to chemotherapy Pancytopenia due to chemotherapy MDS with AML transformation 69-year-old male patient admitted with neutropenic fever/sepsis; patient did have significant ALLERGIC reaction while in the hospital treated with IV steroids Patient remains on IV antibiotics; hemoglobin down to 6.7 with platelets of 9.0; potassium at 3.3 Culture results are pending; covert 19 PCR is negative; patient remains on broad-spectrum IV antibiotics and oncology is following 03/04/2020 Patient is seen and evaluated in room resting comfortably; patient remains pancytopenic; heme/oncology following; patient is status post bone marrow biopsy with results pending; oncology recommending to continue supportive care with transfusion with packed RBCs for hemoglobin less than 7 and platelets if count is less than 10; we will continue to monitor CBC; oncology recommending to continue with prophylactic antibiotics in form of fluoroquinolone and antiviral and fluconazole therapy; await ID recommendations 03/05/2020 Patient is seen and evaluated in room at bedside; reports he's been cleared for discharge by ID; patient was discussed with ID- recommendations are to start patient on oral Augmentin and Diflucan at time of discharge; lab review reveals a low platelet count of less than 10; patient was ordered 5 units of platelets; patient was discussed with oncology service by RN- no transfusion is recommended with recommendations to monitor platelet levels tomorrow morning Objective - Vital Signs Vital signs: Vital Signs Temp 97.3 F L 03/05/20 11:36 Pulse 74 03/05/20 11:36 Resp 16 03/05/20 11:36 BP 132/66 03/05/20 11:36 Pulse Ox 96 03/05/20 11:36 Intake & Output 03/04/20 03/05/20 03/05/20 18:59 06:59 18:59 Intake Total 290 1690 907 Output Total 500 Balance -210 1690 907 Intake: IV 10 Invasive Line 1 10 Intake, IV Titration 840 Amount Sodium Chloride 0.9% 1, 840 000 ml @ 60 mls/hr IV . [id number] [facility] Rx#:[id number] Oral 290 850 897 Output: Urine 500 Other: Voiding Method Urinal Urinal # Voids 3 3 # Bowel Movements 1 - Exam PHYSICAL EXAMINATION: GENERAL: The patient is alert and oriented x3, not in any acute distress. Well developed, well nourished. HEENT: Pupils are round and equally reacting to light. EOMI. No scleral icterus. No conjunctival pallor. Normocephalic, atraumatic. No pharyngeal erythema. No thyromegaly. CARDIOVASCULAR: S1 and S2 present. No murmurs, rubs, or gallops. PULMONARY: Chest is clear to auscultation, no wheezing or crackles. ABDOMEN: Soft, nontender, nondistended, normoactive bowel sounds. No palpable organomegaly. MUSCULOSKELETAL: No joint swelling or deformity. EXTREMITIES: No cyanosis, clubbing, or pedal edema. NEUROLOGICAL: Gross neurological examination did not reveal any focal deficits. SKIN: No rashes. - Labs CBC & Chem 7: 03/05/20 05:52 03/05/20 05:52 Labs: Abnormal Lab Results - Last 24 Hours (Table) 03/04/20 03/04/20 03/05/20 Range/Units 16:54 20:21 05:52 WBC 0.3 L* (3.8-10.6) k/uL RBC 2.26 L (4.30-5.90) m/uL Hgb 7.2 L (13.0-17.5) gm/dL Hct 21.1 L (39.0-53.0) % Plt Count 9 L* (150-450) k/uL Chloride (96-109) mmol/L BUN/Creatinine Ratio (12.00-20.00) Ratio Glucose (70-110) mg/dL POC Glucose (mg/dL) 163 H 185 H (75-99) mg/dL Calcium (8.7-10.3) mg/dL AST (14-35) U/L Total Protein (6.2-8.2) g/dL Albumin (3.80-4.90) g/dL Albumin/Globulin Ratio (1.60-3.17) g/dL 03/05/20 03/05/20 Range/Units 05:52 07:17 WBC (3.8-10.6) k/uL RBC (4.30-5.90) m/uL Hgb (13.0-17.5) gm/dL Hct (39.0-53.0) % Plt Count (150-450) k/uL Chloride 114 H (96-109) mmol/L BUN/Creatinine Ratio 33.75 H (12.00-20.00) Ratio Glucose 151 H (70-110) mg/dL POC Glucose (mg/dL) 149 H (75-99) mg/dL Calcium 7.7 L (8.7-10.3) mg/dL AST 13 L (14-35) U/L Total Protein 5.2 L (6.2-8.2) g/dL Albumin 2.90 L (3.80-4.90) g/dL Albumin/Globulin Ratio 1.26 L (1.60-3.17) g/dL Microbiology - Last 24 Hours (Table) 02/29/20 18:21 Blood Culture - Preliminary Blood No Growth after 96 hours Assessment and Plan Assessment: Febrile Neutropenia: Persistent; AML - Continues to still spike fevers - Melissa Cultures Pending - COVID Neg - Influenza Pending - Broad spectrum abx, anti-fungal added after no decrease in fevers this am, prophylaxis acyclovir added - Consult placed for Dr. Mathur to manage - Prophylaxis at discharge secondary to prolonged neutropenia anticpated with AML and initiation of induction - Do not advance diet please, clear liquids - CT abdomen and pelvis without significant evidence of colitis or obstruction Neutropenia and Diarrhea: - Ok to advance diet slowly to full liquids today. Severe Anemia: - transfuse hemoglobin less than 7. - Irradiated blood products only Thrombocytopenia: - No anticoagulation, NSAIDS, NO aspirin less than 50K - Monitor for bleeding Continue Steroids Continue PPI COntinue Dailys labs
[2020-03-05 19:58] LABS: Glucose,Whole Blood 145 mg/dL (75-99)
[2020-03-06] MEDS: SODIUM CHLORIDE 0.9% 1,000 ML IV SCH ×2 (06:04→20:50)
[2020-03-06 06:23] LABS: HGB 7.7 gm/dL (13.0-17.5); MCH 32.9 pg (25.0-35.0); Mean Platelet Volume 8.7; RBC 2.34 m/uL (4.30-5.90); RDW 15.1 % (11.5-15.5)
[2020-03-06 06:32] LABS: WBC 0.3 k/uL (3.8-10.6)
[2020-03-06 06:33] LABS: Platelet Count 6 k/uL (150-450)
[2020-03-06] MEDS: PANTOPRAZOLE 40 MG TABLET PO SCH ×2 (08:05→16:53)
[2020-03-06] MEDS: CEFEPIME 2 GM in SODIUM CHLORIDE 0.9% 100 ML IVPB SCH ×2 (08:05→16:46)
[2020-03-06] MEDS: clonazePAM 1 MG TAB PO SCH ×2 (08:11→20:48)
[2020-03-06] MEDS: FLUoxetine HCL 20 MG CAP PO SCH (08:12)
[2020-03-06] MEDS: FLUCONAZOLE 100 MG TAB PO SCH (08:12)
[2020-03-06] MEDS: GABAPENTIN 400 MG CAP PO SCH ×3 (08:13→20:48)
[2020-03-06] MEDS: hydrOXYzine HCL 25 MG TAB PO SCH ×3 (08:14→20:48)
[2020-03-06] MEDS: lisinopriL 5 MG TAB PO SCH (08:15)
[2020-03-06] MEDS: NYSTATIN 100,000 UNIT/ML SUSP 500,000 UNIT/5 ML CUP PO SCH ×4 (08:16→20:48)
[2020-03-06] MEDS: predniSONE 20 MG TAB PO SCH (08:20)
[2020-03-06] MEDS: ATORVASTATIN 40 MG TAB PO SCH (08:20)
[2020-03-06] MEDS: ACYCLOVIR 200 MG CAP PO SCH ×3 (08:28→20:49)
[2020-03-06 09:49] LABS: African American GFR (CKD) 107.1 (60.0-200.0); Anion Gap 8.2 mmol/L (4.00-12.00); Calcium 7.8 mg/dL (8.7-10.3); Carbon Dioxide 25.8 mmol/L (21.6-31.8); Magnesium 2.2 mg/dL (1.5-2.4); Non-African American GFR(CKD) 92.4 (60.0-200.0); Potassium 3.9 mmol/L (3.5-5.5)
[2020-03-06 10:00] LABS: Anisocytosis (M) Present; Poikilocytosis (M) Present
--- NOTE | 2020-03-06 17:37 | P.PN ---
Subjective Progress Note Date: 03/06/20 Principal diagnosis: neutropenia fever, AML, status post induction In follow-up today patient is feeling pretty good, he has no acute complaints. No recent fevers, nausea, he is tolerating oral intake, no nausea or vomiting, he denies any bleeding, he is pending platelets for platelet count is 6000. Objective - Vital Signs Vital signs: Vital Signs Temp 98.6 F 03/06/20 12:58 Pulse 76 03/06/20 12:58 Resp 14 03/06/20 12:58 BP 146/73 03/06/20 12:58 Pulse Ox 96 03/06/20 12:58 Intake & Output 03/05/20 03/06/20 03/06/20 18:59 06:59 18:59 Intake Total 1401 1360 0 Output Total 450 Balance 1401 910 0 Intake: IV 30 Invasive Line 1 30 Intake, IV Titration 400 Amount Cefepime 2 gm In Sodium 100 Chloride 0.9% 100 ml @ 25 mls/hr IVPB Q12HR [facility] Rx #:[id number] Sodium Chloride 0.9% 1, 300 000 ml @ 60 mls/hr IV . [id number] [facility] Rx#:[id number] Oral 1371 960 Blood Product 0 Platelet Irr Pheresis Pas 0 -C Unit [id number] Output: Urine 450 Other: Voiding Method Urinal # Voids 3 - Constitutional General appearance: Present: average body habitus, cooperative, no acute distress - EENT Eyes: Present: anicteric sclerae, EOMI ENT: Present: hearing grossly normal, normal oropharynx - Respiratory Respiratory: bilateral: CTA - Cardiovascular Rhythm: regular Heart sounds: normal: S1, S2 Abnormal Heart Sounds: Absent: systolic murmur, diastolic murmur, rub, S3 Gallop, S4 Gallop, click, other - Peripheral edema leg Peripheral Edema: bilateral: None - Gastrointestinal General gastrointestinal: Present: normal bowel sounds, soft. Absent: absent bowel sounds, decreased bowel sounds, distended, hepatomegaly, hyperactive bowel sounds, organomegaly, rigid, scaphoid, splenomegaly, tenderness, umbilical herni a, ventral hernia - Neurologic Neurologic: Present: CNII-XII intact - Musculoskeletal Musculoskeletal: Present: strength equal bilaterally - Psychiatric Psychiatric: Present: A&O x's 3, appropriate affect, intact judgment & insight - Labs CBC & Chem 7: 03/06/20 05:52 03/06/20 05:52 Labs: Abnormal Lab Results - Last 24 Hours (Table) 03/05/20 03/05/20 03/06/20 Range/Units 17:02 19:57 05:52 WBC (3.8-10.6) k/uL RBC (4.30-5.90) m/uL Hgb (13.0-17.5) gm/dL Hct (39.0-53.0) % Plt Count (150-450) k/uL Chloride 110 H (96-109) mmol/L BUN 28.0 H (9.0-27.0) mg/dL BUN/Creatinine Ratio 35.00 H (12.00-20.00) Ratio Glucose 134 H (70-110) mg/dL POC Glucose (mg/dL) 160 H 145 H (75-99) mg/dL Calcium 7.8 L (8.7-10.3) mg/dL 03/06/20 Range/Units 05:52 WBC 0.3 L* (3.8-10.6) k/uL RBC 2.34 L (4.30-5.90) m/uL Hgb 7.7 L (13.0-17.5) gm/dL Hct 22.0 L (39.0-53.0) % Plt Count 6 L* (150-450) k/uL Chloride (96-109) mmol/L BUN (9.0-27.0) mg/dL BUN/Creatinine Ratio (12.00-20.00) Ratio Glucose (70-110) mg/dL POC Glucose (mg/dL) (75-99) mg/dL Calcium (8.7-10.3) mg/dL Microbiology - Last 24 Hours (Table) 02/29/20 18:21 Blood Culture - Preliminary Blood No Growth after 120 hours Assessment and Plan (1) Neutropenic fever Narrative/Plan: Cultures so far are negative. Fever pattern has abated. Patient continues on empiric antibiotics as his WBC/ANC are still very low. No acute intervention for low counts. ID following and treating Current Visit: Yes Status: Acute Priority: High Code(s): D70.9 - NEUTROPENIA, UNSPECIFIED; R50.81 - FEVER PRESENTING WITH CONDITIONS CLASSIFIED ELSEWHERE SNOMED Code(s): 784628571 (2) Acute myeloid leukemia Narrative/Plan: Status post induction. Pending count recovery for bone marrow biopsy to see if patient is in remission. Current Visit: Yes Status: Acute Priority: High Code(s): C92.00 - ACUTE MYELOBLASTIC LEUKEMIA, NOT HAVING ACHIEVED REMISSION SNOMED Code(s): 76878835 (3) Pancytopenia due to antineoplastic chemotherapy Narrative/Plan: Transfuse for hemoglobin less than 7. Hemoglobin 7.7 today no transfusion needed Transfuse for platelets less than 10,000 or symptomatic. Platelets 6000 today, platelets ordered No intervention at this time for low white blood cell counts, pending bone marrow biopsy to confirm remission. Irradiated blood products only please CBC daily. Current Visit: Yes Status: Acute Priority: High Code(s): D61.810 - ANTINEOPLASTIC CHEMOTHERAPY INDUCED PANCYTOPENIA; T45.1X5A - ADVERSE EFFECT OF ANTINEOPLASTIC AND IMMUNOSUP DRUGS, INIT SNOMED Code(s): 170411609488010
--- NOTE | 2020-03-06 22:26 | PN ---
PROGRESS NOTE DATE OF SERVICE: 03/06/2020 REASON FOR FOLLOW UP: Drug rash and fever. INTERVAL HISTORY: Patient is currently afebrile. The patient is feeling better. Breathing comfortably. Patient denies having any chest pain. No shortness of breath or cough. No nausea, no vomiting. No abdominal pain. No diarrhea. PHYSICAL EXAMINATION: Blood pressure 140/74 with a pulse of 69, temperature 98.5. He is 96% on room air. General description is an elderly male lying in bed in no distress. Respiratory system: Unlabored breathing, clear to auscultation anteriorly. Heart S1, S2. Regular rate and rhythm. ABDOMEN: Soft, no tenderness. LABS: Hemoglobin 7.7, white count , creatinine 0.8. Blood and urine culture has been negative. DIAGNOSTIC IMPRESSION AND PLAN: Patient with febrile neutropenia, source likely extensive drug rash that the patient and this patient's fever responded to steroids. Will consider a short course of prednisone on discharge and may consider Augmentin, Diflucan as well in view of persistent neutropenia. His questions and concerns were answered. MMODL / IJN: [id number] /
[2020-03-07 04:58] VITALS: RESP 16
[2020-03-07 07:43] LABS: HCT 25.8 % (39.0-53.0); HGB 8.6 gm/dL (13.0-17.5); MCH 30.8 pg (25.0-35.0); MCHC 33.2 g/dL (31.0-37.0); MCV 92.7 fL (80.0-100.0); Mean Platelet Volume 10.7; RBC 2.79 m/uL (4.30-5.90); RDW 15.2 % (11.5-15.5)
[2020-03-07 08:03] LABS: WBC 0.9 k/uL (3.8-10.6)
[2020-03-07 08:04] LABS: Platelet Count 5 k/uL (150-450)
[2020-03-07] MEDS: PANTOPRAZOLE 40 MG TABLET PO SCH (08:43)
[2020-03-07] MEDS: ATORVASTATIN 40 MG TAB PO SCH (08:44)
[2020-03-07] MEDS: ACYCLOVIR 200 MG CAP PO SCH ×2 (08:44→15:33)
[2020-03-07] MEDS: CEFEPIME 2 GM in SODIUM CHLORIDE 0.9% 100 ML IVPB SCH (08:45)
[2020-03-07] MEDS: FLUCONAZOLE 100 MG TAB PO SCH (08:46)
[2020-03-07] MEDS: clonazePAM 1 MG TAB PO SCH (08:46)
[2020-03-07] MEDS: FLUoxetine HCL 20 MG CAP PO SCH (08:51)
[2020-03-07] MEDS: GABAPENTIN 400 MG CAP PO SCH ×2 (08:51→15:33)
[2020-03-07] MEDS: hydrOXYzine HCL 25 MG TAB PO SCH ×2 (08:52→15:34)
[2020-03-07] MEDS: NYSTATIN 100,000 UNIT/ML SUSP 500,000 UNIT/5 ML CUP PO SCH ×2 (08:52→12:12)
[2020-03-07] MEDS: lisinopriL 5 MG TAB PO SCH (08:52)
[2020-03-07] MEDS: predniSONE 20 MG TAB PO SCH (08:53)
[2020-03-07 11:26] LABS: African American GFR (CKD) 107.1 (60.0-200.0); Anion Gap 6.2 mmol/L (4.00-12.00); BUN/Creat Ratio 31.25 Ratio (12.00-20.00); Calcium 8.1 mg/dL (8.7-10.3); Carbon Dioxide 30.8 mmol/L (21.6-31.8); Non-African American GFR(CKD) 92.4 (60.0-200.0); Potassium 3.5 mmol/L (3.5-5.5)
--- NOTE | 2020-03-07 12:44 | P.PN ---
Subjective Progress Note Date: 03/07/20 The patient generally feels better. He states that he is tolerating his current diet well. No recurrence of abdominal pain. Bowel movements are still somewhat loose but one a day. Skin rash is improving. Objective - Vital Signs Vital signs: Vital Signs Temp 98.2 F 03/07/20 08:20 Pulse 71 03/07/20 08:20 Resp 16 03/07/20 04:25 BP 159/78 03/07/20 08:20 Pulse Ox 95 03/07/20 08:20 Intake & Output 03/06/20 03/07/20 03/07/20 18:59 06:59 18:59 Intake Total 1738 400 Balance 1738 400 Intake: Intake, IV Titration 726 100 Amount Cefepime 2 gm In Sodium 100 Chloride 0.9% 100 ml @ 25 mls/hr IVPB Q12HR [facility] Rx #:[id number] Sodium Chloride 0.9% 1, 726 000 ml @ 60 mls/hr IV . [id number] [facility] Rx#:[id number] Oral 480 300 Blood Product 532 Platelet Irr Pheresis Pas 266 -C Unit [id number] Other: Voiding Method Urinal # Voids 3 3 # Bowel Movements 1 0 - Constitutional General appearance: Present: no acute distress - EENT Eyes: Present: EOMI ENT: Present: hearing grossly normal, normal oropharynx - Respiratory Respiratory: bilateral: CTA - Cardiovascular Rhythm: regular Heart sounds: normal: S1, S2 - Gastrointestinal General gastrointestinal: Present: normal bowel sounds, soft - Integumentary Integumentary: Present: rash (Significantly improved) - Neurologic Neurologic: Present: CNII-XII intact - Musculoskeletal Musculoskeletal: Present: generalized weakness, strength equal bilaterally - Psychiatric Psychiatric: Present: A&O x's 3, appropriate affect - Labs CBC & Chem 7: 03/07/20 07:26 03/07/20 07:26 Labs: Abnormal Lab Results - Last 24 Hours (Table) 03/07/20 03/07/20 Range/Units 07:26 07:26 WBC 0.9 L* (3.8-10.6) k/uL RBC 2.79 L (4.30-5.90) m/uL Hgb 8.6 L (13.0-17.5) gm/dL Hct 25.8 L (39.0-53.0) % Plt Count 5 L* (150-450) k/uL BUN/Creatinine Ratio 31.25 H (12.00-20.00) Ratio Calcium 8.1 L (8.7-10.3) mg/dL Microbiology - Last 24 Hours (Table) 02/29/20 18:21 Blood Culture - Final Blood No Growth after 144 hours Assessment and Plan (1) Neutropenic fever Narrative/Plan: Cultures remain negative. No recurrence of fever now for about 48 hours +. Ok ay for discharge from our standpoint. Defer to ID for outpatient antibiotic regimen Current Visit: Yes Status: Acute Priority: High Code(s): D70.9 - NEUTROPENIA, UNSPECIFIED; R50.81 - FEVER PRESENTING WITH CONDITIONS CLASSIFIED ELSEWHERE SNOMED Code(s): 768345455 (2) Abdominal pain Narrative/Plan: Due to neutropenic colitis. This has resolved. Patient is tolerating a soft diet well. Continue to advance as tolerated post discharge Current Visit: Yes Status: Acute Code(s): R10.9 - UNSPECIFIED ABDOMINAL PAIN SNOMED Code(s): 90589720 (3) Pancytopenia due to antineoplastic chemotherapy Narrative/Plan: Hemoglobin is in a safe range. Platelets were again less than 10,000 today. Additional unit of platelets ordered. Okay to discharge after transfusion if otherwise felt to be okay by the admitting service and other consultants - Patient will have blood draws 3 times a week in the office as an outpatient with supportive transfusions as needed Current Visit: Yes Status: Acute Priority: High Code(s): D61.810 - ANTINEOPLASTIC CHEMOTHERAPY INDUCED PANCYTOPENIA; T45.1X5A - ADVERSE EFFECT OF ANTINEOPLASTIC AND IMMUNOSUP DRUGS, INIT SNOMED Code(s): 224949141682851 (4) Acute myeloid leukemia Narrative/Plan: Status post-induction chemotherapy. Supportive treatment, while awaiting recov soraya of counts. Repeat bone marrow to check for successful induction once counts start recovering. Current Visit: Yes Status: Acute Priority: High Code(s): C92.00 - ACUTE MYELOBLASTIC LEUKEMIA, NOT HAVING ACHIEVED REMISSION SNOMED Code(s): 11205287
--- NOTE | 2020-03-07 15:18 | PN ---
PROGRESS NOTE DATE OF SERVICE: 03/07/2020 REASON FOR FOLLOWUP: Fever, likely drug rash. INTERVAL COURSE: The patient is currently afebrile. The patient is feeling better, breathing comfortably. Patient denies having any chest pain, no shortness of breath or cough. No abdominal pain or diarrhea. PHYSICAL EXAMINATION: Blood pressure 137/77, pulse 80, temperature 98.8. He is 95% we description is an elderly male lying in bed in no distress respiratory system: Unlabored breathing, clear to auscultation anteriorly heart S1, S2. Regular rate and rhythm. ABDOMEN: Soft, no tenderness. Examination rash has decreased in intensity. LABS: Hemoglobin 8.1, white count 0.8 0.5, creatinine 0.8. Culture has been negative. DIAGNOSTIC IMPRESSION AND PLAN: Patient with a febrile neutropenia source likely drug rash chemo related in this patient have shown overall clinical improvement. The patient's fever has resolved. Still neutropenic. May consider short course of oral Augmentin on discharge and Diflucan along with a typical course of prednisone and close outpatient followup. MMODL / IJN: [id number] /
[2020-03-07 15:35] VITALS: BP 129/86; PULSE 82; TEMP 98.6
== END 2020-03-07 18:00 | disposition home or self-care (01) | DRG 871 ==
LOC: EC 18:45 → 6NMEDSUR 21:05 → 5NMEDONC 22:13
PROVIDERS: ADMIT Hospitalist; ATTEND Hospitalist
PROC: 30243N1 Transfusion of Nonautologous Red Blood Cells into Central Vein, Percutaneous Approach (ICD-10-PCS; principal; 2020-02-27)
PROC: 30243R1 Transfusion of Nonautologous Platelets into Central Vein, Percutaneous Approach (ICD-10-PCS; 2020-03-01)
DX: A41.9 Sepsis, unspecified organism (principal); D61.810 Antineoplastic chemotherapy induced pancytopenia; J15.6 Pneumonia due to other Gram-negative bacteria; C92.00 Acute myeloblastic leukemia, not having achieved remission; E87.1 Hypo-osmolality and hyponatremia; K52.1 Toxic gastroenteritis and colitis; D70.3 Neutropenia due to infection; Z20.828 Contact with and (suspected) exposure to other viral communicable diseases; K12.1 Other forms of stomatitis; T45.1X5A Adverse effect of antineoplastic and immunosuppressive drugs, initial encounter; K52.89 Other specified noninfective gastroenteritis and colitis; E78.5 Hyperlipidemia, unspecified; I10 Essential (primary) hypertension; L27.0 Generalized skin eruption due to drugs and medicaments taken internally; I65.22 Occlusion and stenosis of left carotid artery; K40.90 Unilateral inguinal hernia, without obstruction or gangrene, not specified as recurrent; F32.9 Major depressive disorder, single episode, unspecified; F41.9 Anxiety disorder, unspecified; Z79.899 Other long term (current) drug therapy; Z87.891 Personal history of nicotine dependence; Z86.73 Personal history of transient ischemic attack (TIA), and cerebral infarction without residual deficits; Z87.09 Personal history of other diseases of the respiratory system; Z87.39 Personal history of other diseases of the musculoskeletal system and connective tissue; Z98.890 Other specified postprocedural states
CPT/HCPCS: 36415; 70450; 71045; 71250; 74177; 80048; 80053; 80202; 81001; 83010; 83605; 83615; 83735; 84100; 84550; 85025; 85027; 85045; 85384; 85385; 85610; 85730; 86850; 86900; 86901; 86920; 87040; 87086; 87324; 87635; 96361; 96365; 99285

== ENCOUNTER 2020-03-10 10:02 | Inpatient (IN) | payer MEDICARE, OTHER ==
[2020-03-10] MEDS ORDERED: ACETAMINOPHEN TAB 500 MG TAB PO PRN (10:22)
[2020-03-10] MEDS ORDERED: ACETAMINOPHEN TAB 500 MG TAB PO STA (10:22)
--- NOTE | 2020-03-10 10:24 | ED ---
General Adult HPI - General Chief complaint: Fever Stated complaint: Fever,Chills Time Seen by Provider: 03/10/20 10:16 Source: patient, RN notes reviewed Mode of arrival: wheelchair Limitations: no limitations - History of Present Illness Initial comments: Patient is a pleasant 69-year-old male presenting to the emergency department fever. Patient does have leukemia and sees Dr. Rees for that. Patient had fever again started today. Patient complains of fatigue and myalgias and chills. No cough or dyspnea. No rhinorrhea. Some decreased loss of taste however still has appetite. No loss of smell. No abdominal pain. No vomiting or diarrhea. - Related Data Home Medications Medication Instructions Recorded Confirmed Atorvastatin [Lipitor] 40 mg PO DAILY 01/09/20 03/10/20 FLUoxetine HCL [PROzac] 40 mg PO DAILY 01/09/20 03/10/20 Gabapentin [Neurontin] 400 mg PO TID 01/09/20 03/10/20 clonazePAM [KlonoPIN] 1 mg PO BID 01/09/20 03/10/20 hydrOXYzine pamoate [Vistaril] 50 mg PO TID 01/09/20 03/10/20 Acetaminophen [Tylenol] 650 mg PO Q4H PRN 02/26/20 03/10/20 Omeprazole 20 mg PO DAILY 02/26/20 03/10/20 Ondansetron [Zofran] 4 mg PO Q6H PRN 02/26/20 03/10/20 lisinopriL [Zestril] 5 mg PO DAILY 02/26/20 03/10/20 Previous Rx's Medication Instructions Recorded Amoxic-Pot Clav 875-125Mg 1 tab PO Q12HR #14 tab 03/07/20 [Augmentin 875-125] Fluconazole [Diflucan] 100 mg PO DAILY #7 tab 03/07/20 predniSONE See Taper PO DIRECTED #30 tab 03/07/20 Allergies Allergy/AdvReac Type Severity Reaction Status Date / Time No Known Allergies Allergy Verified 03/10/20 10:53 Review of Systems ROS Statement: Those systems with pertinent positive or pertinent negative responses have been documented in the HPI. ROS Other: All systems not noted in ROS Statement are negative. Constitutional: Reports: fever, chills Eyes: Denies: eye pain ENT: Denies: ear pain Respiratory: Denies: cough, dyspnea Cardiovascular: Denies: chest pain Endocrine: Reports: fatigue Gastrointestinal: Denies: abdominal pain, nausea, vomiting Genitourinary: Denies: dysuria Musculoskeletal: Denies: back pain Skin: Denies: lesions Neurological: Denies: weakness Past Medical History Past Medical History: Cancer, CVA/TIA, Hyperlipidemia, Hypertension Additional Past Medical History / Comment(s): Left-sided spontaneous pneuomthorax; hemorrhagic stroke; left carotid stenosis 50%, Leukemia History of Any Multi-Drug Resistant Organisms: None Reported Additional Past Surgical History / Comment(s): ACL replacement, PICC Past Anesthesia/Blood Transfusion Reactions: No Reported Reaction Past Psychological History: Anxiety, Depression Smoking Status: Former smoker Past Alcohol Use History: None Reported Past Drug Use History: None Reported - Past Family History Father Family Medical History: Unable to Obtain Additional Family Medical History / Comment(s): Unable to attain family medical history as patient was adopted General Exam Limitations: no limitations General appearance: alert, in no apparent distress Head exam: Present: normocephalic Eye exam: Present: normal appearance Neck exam: Present: normal inspection Respiratory exam: Present: normal lung sounds bilaterally Cardiovascular Exam: Present: tachycardia GI/Abdominal exam: Present: soft. Absent: tenderness Extremities exam: Present: normal inspection Neurological exam: Present: alert Psychiatric exam: Present: normal affect, normal mood Skin exam: Present: normal color Course Vital Signs 03/10/20 03/10/20 03/10/20 10:08 11:50 12:30 Temperature 103.4 F H 103.1 F H 102 F H Pulse Rate 103 H 103 H 98 Respiratory 18 18 18 Rate Blood Pressure 109/65 90/57 102/56 O2 Sat by Pulse 98 95 98 Oximetry 03/10/20 13:09 Temperature 101.7 F H Pulse Rate 98 Respiratory 18 Rate Blood Pressure 93/56 O2 Sat by Pulse 98 Oximetry - Reevaluation(s) Reevaluation #1: 03/10/20 13:57 There is concern for possible sepsis diagnosed at 1350. Blood culture and lactic acid ordered. Fluid bolus ordered. Systolic blood pressure is currently 100 EKG Findings - EKG Comments: EKG Findings:: Sinus tachycardia 102. GA 166. QRS 90. QT 358. QTC 466. Normal axis. Normal QRS. No acute ST change. Medical Decision Making - Medical Decision Making Case was discussed with Dr. Holbrook, who will admit For hospital call. Case also discussed with Dr. Lee who did want patient to receive cefepime and Diflucan and vancomycin. Patient reevaluated. Systolic blood pressure 100. Patient has received fluid bolus. - Lab Data Result diagrams: 03/10/20 10:47 03/10/20 10:47 Lab Results 03/10/20 03/10/20 03/10/20 Range/Units 10:47 10:47 10:47 WBC 0.4 L* (3.8-10.6) k/uL RBC 2.80 L (4.30-5.90) m/uL Hgb 8.6 L (13.0-17.5) gm/dL Hct 25.1 L (39.0-53.0) % MCV 89.7 (80.0-100.0) fL MCH 30.8 (25.0-35.0) pg MCHC 34.4 (31.0-37.0) g/dL RDW 14.6 (11.5-15.5) % Plt Count 3 L* (150-450) k/uL MPV 7.4 Differential Comment Manual Slide Review Performed RBC Morphology Normal PT 11.1 (9.0-12.0) sec INR 1.1 (<1.2) APTT 22.3 (22.0-30.0) sec Sodium 134 L (137-145) mmol/L Potassium 4.0 (3.5-5.1) mmol/L Chloride 98 (98-107) mmol/L Carbon Dioxide 26 (22-30) mmol/L Anion Gap 10 mmol/L BUN 21 H (9-20) mg/dL Creatinine 0.91 (0.66-1.25) mg/dL Est GFR (CKD-EPI)AfAm >90 (>60 ml/min/1.73 sqM) Est GFR (CKD-EPI)NonAf 87 (>60 ml/min/1.73 sqM) Glucose 114 H (74-99) mg/dL Lactic Ac Sepsis Rflx Plasma Lactic Acid Gonsalo (0.7-2.0) mmol/L Calcium 8.4 (8.4-10.2) mg/dL Magnesium 1.9 (1.6-2.3) mg/dL Total Bilirubin 0.9 (0.2-1.3) mg/dL AST 14 L (17-59) U/L ALT 22 (4-49) U/L Alkaline Phosphatase 60 (38-126) U/L Lactate Dehydrogenase 311 L (313-618) U/L C-Reactive Protein 50.6 H (<10.0) mg/L Total Protein 6.5 (6.3-8.2) g/dL Albumin 3.2 L (3.5-5.0) g/dL Urine Color Urine Appearance (Clear) Urine pH (5.0-8.0) Ur Specific [place] (1.001-1.035) Urine Protein (Negative) Urine Glucose (UA) (Negative) Urine Ketones (Negative) Urine Blood (Negative) Urine Nitrite (Negative) Urine Bilirubin (Negative) Urine Urobilinogen (<2.0) mg/dL Ur Leukocyte Esterase (Negative) Urine RBC (0-5) /hpf Urine WBC (0-5) /hpf Ur Squamous Epith Cells (0-4) /hpf Urine Mucus (None) /hpf Coronavirus (PCR) (Not Detectd) 03/10/20 03/10/20 03/10/20 Range/Units 10:47 10:47 11:09 WBC (3.8-10.6) k/uL RBC (4.30-5.90) m/uL Hgb (13.0-17.5) gm/dL Hct (39.0-53.0) % MCV (80.0-100.0) fL MCH (25.0-35.0) pg MCHC (31.0-37.0) g/dL RDW (11.5-15.5) % Plt Count (150-450) k/uL MPV Differential Comment Manual Slide Review RBC Morphology PT (9.0-12.0) sec INR (<1.2) APTT (22.0-30.0) sec Sodium (137-145) mmol/L Potassium (3.5-5.1) mmol/L Chloride (98-107) mmol/L Carbon Dioxide (22-30) mmol/L Anion Gap mmol/L BUN (9-20) mg/dL Creatinine (0.66-1.25) mg/dL Est GFR (CKD-EPI)AfAm (>60 ml/min/1.73 sqM) Est GFR (CKD-EPI)NonAf (>60 ml/min/1.73 sqM) Glucose (74-99) mg/dL Lactic Ac Sepsis Rflx Y Plasma Lactic Acid Gonsalo 3.4 H* (0.7-2.0) mmol/L Calcium (8.4-10.2) mg/dL Magnesium (1.6-2.3) mg/dL Total Bilirubin (0.2-1.3) mg/dL AST (17-59) U/L ALT (4-49) U/L Alkaline Phosphatase (38-126) U/L Lactate Dehydrogenase (313-618) U/L C-Reactive Protein (<10.0) mg/L Total Protein (6.3-8.2) g/dL Albumin (3.5-5.0) g/dL Urine Color Urine Appearance (Clear) Urine pH (5.0-8.0) Ur Specific [place] (1.001-1.035) Urine Protein (Negative) Urine Glucose (UA) (Negative) Urine Ketones (Negative) Urine Blood (Negative) Urine Nitrite (Negative) Urine Bilirubin (Negative) Urine Urobilinogen (<2.0) mg/dL Ur Leukocyte Esterase (Negative) Urine RBC (0-5) /hpf Urine WBC (0-5) /hpf Ur Squamous Epith Cells (0-4) /hpf Urine Mucus (None) /hpf Coronavirus (PCR) Not Detected (Not Detectd) 03/10/20 Range/Units 11:52 WBC (3.8-10.6) k/uL RBC (4.30-5.90) m/uL Hgb (13.0-17.5) gm/dL Hct (39.0-53.0) % MCV (80.0-100.0) fL MCH (25.0-35.0) pg MCHC (31.0-37.0) g/dL RDW (11.5-15.5) % Plt Count (150-450) k/uL MPV Differential Comment Manual Slide Review RBC Morphology PT (9.0-12.0) sec INR (<1.2) APTT (22.0-30.0) sec Sodium (137-145) mmol/L Potassium (3.5-5.1) mmol/L Chloride (98-107) mmol/L Carbon Dioxide (22-30) mmol/L Anion Gap mmol/L BUN (9-20) mg/dL Creatinine (0.66-1.25) mg/dL Est GFR (CKD-EPI)AfAm (>60 ml/min/1.73 sqM) Est GFR (CKD-EPI)NonAf (>60 ml/min/1.73 sqM) Glucose (74-99) mg/dL Lactic Ac Sepsis Rflx Plasma Lactic Acid Gonsalo (0.7-2.0) mmol/L Calcium (8.4-10.2) mg/dL Magnesium (1.6-2.3) mg/dL Total Bilirubin (0.2-1.3) mg/dL AST (17-59) U/L ALT (4-49) U/L Alkaline Phosphatase (38-126) U/L Lactate Dehydrogenase (313-618) U/L C-Reactive Protein (<10.0) mg/L Total Protein (6.3-8.2) g/dL Albumin (3.5-5.0) g/dL Urine Color Yellow Urine Appearance Clear (Clear) Urine pH 7.5 (5.0-8.0) Ur Specific [place] 1.018 (1.001-1.035) Urine Protein 1+ H (Negative) Urine Glucose (UA) Negative (Negative) Urine Ketones Negative (Negative) Urine Blood Negative (Negative) Urine Nitrite Negative (Negative) Urine Bilirubin Negative (Negative) Urine Urobilinogen <2.0 (<2.0) mg/dL Ur Leukocyte Esterase Negative (Negative) Urine RBC 4 (0-5) /hpf Urine WBC 1 (0-5) /hpf Ur Squamous Epith Cells <1 (0-4) /hpf Urine Mucus Rare H (None) /hpf Coronavirus (PCR) (Not Detectd) - Radiology Data Radiology results: image reviewed (Chest x-ray shows mild stranding density right lung without focal consolidation) Critical Care Time Critical Care Time: Yes Total Critical Care Time: 33 Disposition Clinical Impression: Fever, Sepsis Disposition: ADMITTED IP TO THIS HOSP Is patient prescribed a controlled substance at d/c from ED?: No Referrals: Fady Lemus DO [Primary Care Provider] - 1-2 days Decision Time: 13:56
[2020-03-10 11:00] LABS: HCT 25.1 % (39.0-53.0); HGB 8.6 gm/dL (13.0-17.5); MCH 30.8 pg (25.0-35.0); MCHC 34.4 g/dL (31.0-37.0); MCV 89.7 fL (80.0-100.0); Mean Platelet Volume 7.4; RDW 14.6 % (11.5-15.5)
[2020-03-10 11:13] LABS: WBC 0.4 k/uL (3.8-10.6)
[2020-03-10 11:14] LABS: Platelet Count 3 k/uL (150-450)
[2020-03-10] MEDS ORDERED: SODIUM CHLORIDE 0.9% 1,000 ML IV STA ×3 (11:18→13:08)
[2020-03-10] MEDS ORDERED: VANCOMYCIN IV PER PHARMACY 1 EACH MISC MISCELLANE PRN (11:19)
[2020-03-10] MEDS ORDERED: CEFEPIME 1 GM in SODIUM CHLORIDE 0.9% 50 ML IVPB STA (11:19)
[2020-03-10 11:22] LABS: ALT 22 U/L (4-49); AST 14 U/L (17-59); African American GFR (CKD) >90 (>60 ml/min/1.73 sqM); Albumin 3.2 g/dL (3.5-5.0); Alkaline Phosphatase 60 U/L (38-126); Anion Gap 10 mmol/L; Blood Urea Nitrogen 21 mg/dL (9-20); C Reactive Protein 50.6 mg/L (<10.0); Calcium 8.4 mg/dL (8.4-10.2); Carbon Dioxide 26 mmol/L (22-30); Chloride 98 mmol/L (98-107); Glucose 114 mg/dL (74-99); LDH 311 U/L (313-618); Magnesium 1.9 mg/dL (1.6-2.3); Non-African American GFR(CKD) 87 (>60 ml/min/1.73 sqM); Sodium 134 mmol/L (137-145); Total Bilirubin 0.9 mg/dL (0.2-1.3); Total Protein 6.5 g/dL (6.3-8.2)
[2020-03-10 11:41] LABS: INR 1.1 (<1.2); Partial Thromboplastin Time 22.3 sec (22.0-30.0); Prothrombin Time 11.1 sec (9.0-12.0)
[2020-03-10] MEDS ORDERED: FLUCONAZOLE IN NACL,ISO-OSM 200 MG in SALINE 1 100ML.BAG IVPB ONE (11:45)
[2020-03-10] MEDS ORDERED: VANCOMYCIN 1,500 MG in SODIUM CHLORIDE 0.9% 250 ML IVPB ONE (12:00)
[2020-03-10 12:09] LABS: Appearance,Urine Clear (Clear); Bilirubin,Urine Negative (Negative); Blood,Urine Negative (Negative); Color,Urine Yellow; Glucose,Urine (UA) Negative (Negative); Ketones,Urine Negative (Negative); Leukocyte Esterase,Urine Negative (Negative); Mucus,Urine Rare /hpf; Nitrite,Urine Negative (Negative); PH, Urine 7.5 (5.0-8.0); Protein,Urine 1+ (Negative); RBC,Urine 4 /hpf (0-5); Specific Gravity,Urine 1.018 (1.001-1.035); Squamous Epithelial Cell,Urine <1 /hpf (0-4); Urobilinogen,Urine <2.0 mg/dL (<2.0); WBC,Urine 1 /hpf (0-5)
--- NOTE | 2020-03-10 12:09 | XR ---
EXAMINATION TYPE: XR chest 1V portable DATE OF EXAM: 03/10/2020 HISTORY: Shortness of breath. COMPARISON: 02/26/2020 TECHNIQUE: Single view of the chest is submitted. FINDINGS: Demonstrated are scattered senescent parenchymal change. Mild strandy density right lung base without focal consolidation. The heart is stable. Hilar and mediastinal structures are within normal limits. Degenerative changes are seen of the dorsal spine. IMPRESSION: 1. Mild strandy density right lung base without focal consolidation.
[2020-03-10] MEDS ORDERED: SODIUM CHLORIDE 0.9% 500 ML 500 ML IV STA (13:08)
[2020-03-10] MEDS ORDERED: NALOXONE 0.4 MG/ML 1 ML VIAL IV PRN (13:59)
[2020-03-10] MEDS: ACETAMINOPHEN TAB 325 MG TAB PO PRN (16:04)
--- NOTE | 2020-03-10 17:51 | P.CONS ---
History of Present Illness - Reason for Consult Consult date: 03/10/20 Febrile neutropenia, AML - History of Present Illness Mr Chand is a pleasant white male, initially seen in consult at [facility] on 01/13/20. It come into the hospital complaining of fever, chills, with cough and chest discomfort. The patient was less than 101. Cardiac ischemia was rule out. He had a CTA of the chest that was negative for PE, or dissection but did show some abnormal mediastinal density. The patient was seen back in the thoracic surgery indicated that these findings were nonspecific and did not recommend further workup. He was also placed on antibiotics by ID with resolution of symptoms. CBC on admission showed 6% blasts with other indices essentially normal. As this finding persisted patient had additional labs done, that were negative. He then underwent a bone marrow aspiration biopsy on 01/19/20. 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 Flow cytometry actually showed about 40% blasts. 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 AML fish was negative. 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 He was referred to the [facility] and seen by Dr Kowalski. Case was d/w him. Induction chemo with Vyxeos was recommended. He was started on Vyxeos and completed infuction day 5 of cycle one on 02/24. Patient called answering service 02/25 with complaints of nausea, vomiting, diarrhea and high fevers 102-102.4. Referred to emergency, and admitted for febrile neutropenia. During his admission he had evidence neutropenic colitis which improved with bowel rest and antibiotics. Cultures remained negative. He did require transfusion support during his admission, as expected. He had also developed a significant rash postchemotherapy which improved with steroids. His discharged on 03/07/20 on oral antibiotics. He did receive a blood transfusion as an outpatient post discharge. The patient came back to the emergency room as he had developed fevers again. T-max was 103.1. He reported some chills and generalized body aches. He denied any cough, hemoptysis, shortness of breath for baseline, urinary complaints, recurrent abdominal pain, or change in bowel habits. Labs showed significant pancytopenia. Vitals were suggestive of sepsis with elevated heart rate, and systolic blood pressure in the 90s. Case was discussed with the emergency room physician. Patient was admitted for further management. Rapid coronavirus testing was negative. at the time of evaluation the patient was quite hypertensive and episodes of chemotherapy called. He was however was able to give a coherent history. He states that his only localizing symptoms otherwise was possibly some increase in diarrhea today. Review of Systems Constitutional: Reports chills, Reports fever, Reports weakness Eyes: denies blurred vision, denies pain Ears: deny: decreased hearing, ear discharge, earache, tinnitus Ears, nose, mouth and throat: Denies headache, Denies sore throat Cardiovascular: Reports decreased exercise tolerance Respiratory: Denies cough Gastrointestinal: Reports diarrhea Genitourinary: Reports as per HPI Musculoskeletal: Reports muscle weakness Integumentary: Reports rash (due to chemotherapy, resolving with steroids) Neurological: Reports weakness Psychiatric: Denies anxiety, Denies depression Endocrine: Reports fatigue Hematologic/Lymphatic: Reports as per HPI Past Medical History Past Medical History: Cancer, CVA/TIA, Hyperlipidemia, Hypertension Additional Past Medical History / Comment(s): Left-sided spontaneous pneuomt horax; hemorrhagic stroke; left carotid stenosis 50%, Leukemia History of Any Multi-Drug Resistant Organisms: None Reported Additional Past Surgical History / Comment(s): ACL replacement, PICC Past Anesthesia/Blood Transfusion Reactions: No Reported Reaction Past Psychological History: Anxiety, Depression Smoking Status: Former smoker Past Alcohol Use History: None Reported Past Drug Use History: None Reported - Past Family History Father Family Medical History: Unable to Obtain Additional Family Medical History / Comment(s): Unable to attain family medical history as patient was adopted Medications and Allergies Home Medications Medication Instructions Recorded Confirmed Type Atorvastatin [Lipitor] 40 mg PO DAILY 01/09/20 03/10/20 History FLUoxetine HCL [PROzac] 40 mg PO DAILY 01/09/20 03/10/20 History Gabapentin [Neurontin] 400 mg PO TID 01/09/20 03/10/20 History clonazePAM [KlonoPIN] 1 mg PO BID 01/09/20 03/10/20 History hydrOXYzine pamoate [Vistaril] 50 mg PO TID 01/09/20 03/10/20 History Acetaminophen [Tylenol] 650 mg PO Q4H PRN 02/26/20 03/10/20 History Omeprazole 20 mg PO DAILY 02/26/20 03/10/20 History Ondansetron [Zofran] 4 mg PO Q6H PRN 02/26/20 03/10/20 History lisinopriL [Zestril] 5 mg PO DAILY 02/26/20 03/10/20 History Amoxic-Pot Clav 875-125Mg 1 tab PO Q12HR #14 tab 03/07/20 03/10/20 Rx [Augmentin 875-125] Fluconazole [Diflucan] 100 mg PO DAILY #7 tab 03/07/20 03/10/20 Rx predniSONE See Taper PO DIRECTED #30 tab 03/07/20 03/10/20 Rx Allergies Allergy/AdvReac Type Severity Reaction Status Date / Time No Known Allergies Allergy Verified 03/10/20 10:53 Physical Exam Vitals: Vital Signs Temp Pulse Resp BP Pulse Ox 03/10/20 15:51 103.1 F H 110 H 18 124/67 96 03/10/20 14:49 106 H 18 115/56 95 03/10/20 13:09 101.7 F H 98 18 93/56 98 03/10/20 12:30 102 F H 98 18 102/56 98 03/10/20 11:50 103.1 F H 103 H 18 90/57 95 03/10/20 10:08 103.4 F H 103 H 18 109/65 98 Intake and Output 03/10/20 03/10/20 03/10/20 06:59 14:59 22:59 Other: Weight 68.039 kg - Constitutional mildly diaphoretic, generalized weakness - EENT Eyes: EOMI, PERRLA ENT: hearing grossly normal, normal oropharynx - Neck Neck: no lymphadenopathy - Respiratory Respiratory: bilateral: CTA - Cardiovascular Rhythm: regular Heart sounds: normal: S1, S2 - Gastrointestinal General gastrointestinal: normal bowel sounds, soft - Integumentary Integumentary: rash (extensive drug rash on chest, abdomen and lower extremities. Showing significant resolution. Petechial-type rash on lower extremities below knee, also improved) - Musculoskeletal Musculoskeletal: generalized weakness, strength equal bilaterally - Psychiatric Psychiatric: A&O x's 3, appropriate affect Results CBC & Chem 7: 03/10/20 10:47 03/10/20 10:47 Labs: Abnormal Lab Results - Last 24 Hours (Table) 03/10/20 03/10/20 03/10/20 Range/Units 10:47 10:47 10:47 WBC 0.4 L* (3.8-10.6) k/uL RBC 2.80 L (4.30-5.90) m/uL Hgb 8.6 L (13.0-17.5) gm/dL Hct 25.1 L (39.0-53.0) % Plt Count 3 L* (150-450) k/uL Sodium 134 L (137-145) mmol/L BUN 21 H (9-20) mg/dL Glucose 114 H (74-99) mg/dL Plasma Lactic Acid Gonsalo 3.4 H* (0.7-2.0) mmol/L AST 14 L (17-59) U/L Lactate Dehydrogenase 311 L (313-618) U/L C-Reactive Protein 50.6 H (<10.0) mg/L Albumin 3.2 L (3.5-5.0) g/dL Procalcitonin (0.02-0.09) ng/mL Urine Protein (Negative) Urine Mucus (None) /hpf 03/10/20 03/10/20 Range/Units 10:47 11:52 WBC (3.8-10.6) k/uL RBC (4.30-5.90) m/uL Hgb (13.0-17.5) gm/dL Hct (39.0-53.0) % Plt Count (150-450) k/uL Sodium (137-145) mmol/L BUN (9-20) mg/dL Glucose (74-99) mg/dL Plasma Lactic Acid Gonsalo (0.7-2.0) mmol/L AST (17-59) U/L Lactate Dehydrogenase (313-618) U/L C-Reactive Protein (<10.0) mg/L Albumin (3.5-5.0) g/dL Procalcitonin 0.15 H (0.02-0.09) ng/mL Urine Protein 1+ H (Negative) Urine Mucus Rare H (None) /hpf Comments: EKG imaging reviewed Chest x-ray: report reviewed Assessment and Plan (1) Sepsis Narrative/Plan: the patient is presenting with febrile neutropenia, with parameters consistent with sepsis, including hypotension and tachycardia. Discuss with nursing and ICU transfer recommended. Patient's case was discussed with the ER physician, and also with ID in detail . He has been started on vancomycin and cefepime. Initial rapid COVID testing was negative, and PCR has been ordered. Influenza testing is also pending. - Consult critical care medicine - Deferred to ID for additional antibiotic management - Cultures pending Current Visit: Yes Status: Acute Code(s): A41.9 - SEPSIS, UNSPECIFIED ORGANISM SNOMED Code(s): 16392331 (2) Pancytopenia due to antineoplastic chemotherapy Narrative/Plan: this is persistent at this time, as expected, based on where the patient is in his course of treatment. One unit of platelets ordered for platelet count of 3000 today. Continue to monitor and transfuse to keep hemoglobin greater than 7, platelets greater than 10 - Check labs to rule out DIC Current Visit: No Status: Acute Priority: High Code(s): D61.810 - ANTINEO PLASTIC CHEMOTHERAPY INDUCED PANCYTOPENIA; T45.1X5A - ADVERSE EFFECT OF ANTINEOPLASTIC AND IMMUNOSUP DRUGS, INIT SNOMED Code(s): 007929970582278 (3) Acute myeloid leukemia Narrative/Plan: status post induction chemotherapy. Currently awaiting recovery of counts prior to repeat bone marrow to check for response Current Visit: No Status: Acute Priority: High Code(s): C92.00 - ACUTE MYELOBLASTIC LEUKEMIA, NOT HAVING ACHIEVED REMISSION SNOMED Code(s): 87746667
[2020-03-10 19:05] LABS: INR 1.3 (<1.2); Partial Thromboplastin Time 25.3 sec (22.0-30.0); Prothrombin Time 13.1 sec (9.0-12.0)
[2020-03-10 19:15] LABS: Glucose,Whole Blood 93 mg/dL (75-99)
[2020-03-10] MEDS: NOREPINEPHRINE 4 MG in SODIUM CHLORIDE 0.9% 250 ML IV SCH ×2 (20:23→23:54)
--- NOTE | 2020-03-10 20:52 | P.HPIM ---
History of Present Illness H&P Date: 03/10/20 Chief Complaint: Fever Patient is a 69-year-old male with a known history of AML currently undergoing chemotherapy, last chemotherapy yesterday, hypertension, hyperlipidemia, history of left-sided spontaneous pneumothorax, hemorrhagic stroke, left carotid stenosis 50%) of smoking and anxiety/depression presents to ER with complaints of fever started since morning today. Patient has been having fever chills and generalized weakness and malaise and fatigue. Denies any cough or sputum production. No nausea vomiting or diarrhea. No complaints of abdominal pain. No headache or dizziness or lightheadedness. In the ER initial vitals showed blood pressure 109/65 pulse is 103, respiration 18 and temperature 103.4 Chest x-ray showed mild strandy density right lung base without focal consolidation. EKG showed sinus tachycardia Laboratory data showed WBC count 0.4, hemoglobin 8.6, platelets 3 Sodium 134, potassium 4.0, BUN 21, creatinine 0.91, lactic acid 3.4 AST 14 ALT 22 alk phos 60 LDH 311 CRP 50.6 and procalcitonin 0.15 Urinalysis negative for infection Rapid coronavirus PCR is negative in the ER. Review of Systems Constitutional: Patient does have fever, chills and generalized weakness and fatigue.. Abdomen: Patient denied nausea vomiting and diarrhea and abdominal pain. Cardiovascular: Patient denies any chest pain or short of breath no palpitations. Respiratory: patient denied any cough or sputum production. No shortness of breath Neurologic: Patient denied any numbness or tingling headache. Musculoskeletal: Patient denies any complaints of joint swelling or deformity. Skin: Negative Psychiatric: Negative Endocrine: No heat or cold intolerance. No recent weight gain. Genitourinary: No dysuria or hematuria. All other 14 point ROS negative except the above Past Medical History Past Medical History: Cancer, CVA/TIA, Hyperlipidemia, Hypertension Additional Past Medical History / Comment(s): Left-sided spontaneous pneuomthorax; hemorrhagic stroke; left carotid stenosis 50%, Leukemia History of Any Multi-Drug Resistant Organisms: None Reported Additional Past Surgical History / Comment(s): ACL replacement, PICC Past Anesthesia/Blood Transfusion Reactions: No Reported Reaction Past Psychological History: Anxiety, Depression Smoking Status: Former smoker Past Alcohol Use History: None Reported Past Drug Use History: None Reported - Past Family History Father Family Medical History: Unable to Obtain Additional Family Medical History / Comment(s): Unable to attain family medical history as patient was adopted Medications and Allergies Home Medications Medication Instructions Recorded Confirmed Type Atorvastatin [Lipitor] 40 mg PO DAILY 01/09/20 03/10/20 History FLUoxetine HCL [PROzac] 40 mg PO DAILY 01/09/20 03/10/20 History Gabapentin [Neurontin] 400 mg PO TID 01/09/20 03/10/20 History clonazePAM [KlonoPIN] 1 mg PO BID 01/09/20 03/10/20 History hydrOXYzine pamoate [Vistaril] 50 mg PO TID 01/09/20 03/10/20 History Acetaminophen [Tylenol] 650 mg PO Q4H PRN 02/26/20 03/10/20 History Omeprazole 20 mg PO DAILY 02/26/20 03/10/20 History Ondansetron [Zofran] 4 mg PO Q6H PRN 02/26/20 03/10/20 History lisinopriL [Zestril] 5 mg PO DAILY 02/26/20 03/10/20 History Amoxic-Pot Clav 875-125Mg 1 tab PO Q12HR #14 tab 03/07/20 03/10/20 Rx [Augmentin 875-125] Fluconazole [Diflucan] 100 mg PO DAILY #7 tab 03/07/20 03/10/20 Rx predniSONE See Taper PO DIRECTED #30 tab 03/07/20 03/10/20 Rx Allergies Allergy/AdvReac Type Severity Reaction Status Date / Time No Known Allergies Allergy Verified 03/10/20 10:53 Physical Exam Vitals: Vital Signs Temp Pulse Resp BP Pulse Ox 03/10/20 13:09 101.7 F H 98 18 93/56 98 03/10/20 12:30 102 F H 98 18 102/56 98 03/10/20 11:50 103.1 F H 103 H 18 90/57 95 03/10/20 10:08 103.4 F H 103 H 18 109/65 98 Intake and Output 03/10/20 03/10/20 03/10/20 06:59 14:59 22:59 Other: Weight 68.039 kg PHYSICAL EXAMINATION: Patient is lying in the bed comfortably, no acute distress, awake alert and oriented.. HEENT: Normocephalic. Neck is supple. Pupils reactive. Nostrils clear. Oral cavity is moist. Ears reveal no drainage. Neck reveals no JVD, carotid bruits, or thyromegaly. CHEST EXAMINATION: Trachea is central. Symmetrical expansion. Lung cassidy clear to auscultation and percussion. CARDIAC: Normal S1, S2 with no gallops. No murmurs ABDOMEN: Soft. Bowel sounds normal. No organomegaly. No abdominal bruits. Extremities: reveal no edema. No clubbing or cyanosis Neurologically awake, alert, oriented x3 with well-coordinated movements. No focal deficits noted Skin: No rash or skin lesions. Psychiatric: Coperative. Nonsuicidal Musculoskeletal: No joint swelling or deformity. Normal range of motion. Results CBC & Chem 7: 03/10/20 10:47 03/10/20 10:47 Labs: Abnormal Lab Results - Last 24 Hours (Table) 03/10/20 03/10/20 03/10/20 Range/Units 10:47 10:47 10:47 WBC 0.4 L* (3.8-10.6) k/uL RBC 2.80 L (4.30-5.90) m/uL Hgb 8.6 L (13.0-17.5) gm/dL Hct 25.1 L (39.0-53.0) % Plt Count 3 L* (150-450) k/uL Sodium 134 L (137-145) mmol/L BUN 21 H (9-20) mg/dL Glucose 114 H (74-99) mg/dL Plasma Lactic Acid Gonsalo 3.4 H* (0.7-2.0) mmol/L AST 14 L (17-59) U/L Lactate Dehydrogenase 311 L (313-618) U/L C-Reactive Protein 50.6 H (<10.0) mg/L Albumin 3.2 L (3.5-5.0) g/dL Urine Protein (Negative) Urine Mucus (None) /hpf 03/10/20 Range/Units 11:52 WBC (3.8-10.6) k/uL RBC (4.30-5.90) m/uL Hgb (13.0-17.5) gm/dL Hct (39.0-53.0) % Plt Count (150-450) k/uL Sodium (137-145) mmol/L BUN (9-20) mg/dL Glucose (74-99) mg/dL Plasma Lactic Acid Gonsalo (0.7-2.0) mmol/L AST (17-59) U/L Lactate Dehydrogenase (313-618) U/L C-Reactive Protein (<10.0) mg/L Albumin (3.5-5.0) g/dL Urine Protein 1+ H (Negative) Urine Mucus Rare H (None) /hpf Thrombosis Risk Factor Assmnt - DVT/VTE Prophylaxis DVT/VTE Prophylaxis: Mechanical Prophylaxis ordered Assessment and Plan Assessment: Febrile neutropenia SIRS and Possible sepsis source unknown at this time Pancytopenia secondary to chemotherapy. AML currently undergoing chemotherapy last dose was on yesterday Lactic acidosis Elevated inflammatory markers DVT prophylaxis. SCDs and no heparin due to thrombocytopenia Plan: Patient will be continued broad-spectrum antibiotics in the form of vancomycin, cefepime and fluconazole. IV fluids. Follow-up culture reports. repeat LA level. Platelet transfusion to keep the platelet count greater than 10,000. Patient does not have any signs of active bleeding at this time. Monitor H&H. COVID-19 rapid PCR is negative. Influenza PCR was ordered. Continue to follow closely. Oncology and ID will be consulted. Time with Patient: Greater than 30
[2020-03-10] MEDS: CEFEPIME 1 GM in SODIUM CHLORIDE 0.9% 50 ML IVPB SCH (20:59)
[2020-03-10 21:51] LABS: Ferritin 1295.6 ng/mL (22.0-322.0)
[2020-03-11 00:30] LABS: Appearance,Urine Clear (Clear); Bilirubin,Urine Negative (Negative); Blood,Urine Large (Negative); Color,Urine Light Red; Glucose,Urine (UA) Negative (Negative); Ketones,Urine Negative (Negative); Leukocyte Esterase,Urine Negative (Negative); Mucus,Urine Rare /hpf; Nitrite,Urine Negative (Negative); PH, Urine 6.5 (5.0-8.0); Protein,Urine 1+ (Negative); RBC,Urine >182 /hpf (0-5); Specific Gravity,Urine 1.015 (1.001-1.035); Squamous Epithelial Cell,Urine <1 /hpf (0-4); Urobilinogen,Urine <2.0 mg/dL (<2.0); WBC,Urine 34 /hpf (0-5)
[2020-03-11] MEDS: VANCOMYCIN 1,500 MG in SODIUM CHLORIDE 0.9% 250 ML IVPB SCH ×2 (02:00→18:05)
[2020-03-11] MEDS: ACETAMINOPHEN TAB 325 MG TAB PO PRN ×2 (02:00→12:31)
[2020-03-11] MEDS: NOREPINEPHRINE 4 MG in SODIUM CHLORIDE 0.9% 250 ML IV SCH ×3 (02:01→15:59)
[2020-03-11 04:48] LABS: HCT 20.1 % (39.0-53.0); HGB 7.2 gm/dL (13.0-17.5); MCH 31.7 pg (25.0-35.0); MCHC 35.7 g/dL (31.0-37.0); MCV 88.9 fL (80.0-100.0); Mean Platelet Volume 9.6; RBC 2.26 m/uL (4.30-5.90); RDW 14.3 % (11.5-15.5)
[2020-03-11 04:49] LABS: Platelet Count 8 k/uL (150-450); WBC 0.4 k/uL (3.8-10.6)
[2020-03-11 05:10] LABS: Albumin 2.3 g/dL (3.5-5.0); Calcium 6.8 mg/dL (8.4-10.2); Potassium 3.8 mmol/L (3.5-5.1); Total Bilirubin 0.8 mg/dL (0.2-1.3)
[2020-03-11] MEDS: FLUoxetine HCL 20 MG CAP PO SCH (10:41)
[2020-03-11] MEDS: PANTOPRAZOLE 40 MG TABLET PO SCH (10:41)
--- NOTE | 2020-03-11 11:34 | P.PN ---
Subjective Progress Note Date: 03/11/20 Pt still weak, but improved. No fevers since 2100 last pm. He has been having significant diarrhea. No cough or urinary complaints/obvious bleeding Objective - Vital Signs Vital signs: Vital Signs Temp 99.1 F 03/11/20 08:00 Pulse 108 H 03/11/20 09:00 Resp 23 03/11/20 09:00 BP 97/69 03/11/20 09:00 Pulse Ox 96 03/11/20 09:00 Intake & Output 03/10/20 03/11/20 03/11/20 18:59 06:59 18:59 Intake Total 2497.975 50 Output Total 1100 200 Balance 1397.975 -150 Weight 78.9 kg 80.2 kg Intake: IV 1700 50 Cefepime 1 gm In Sodium 150 Chloride 0.9% 50 ml @ 12. 5 mls/hr IVPB Q12HR [facility] Rx#:[id number] Sodium Chloride 0.9% 1, 1300 50 000 ml @ 130 mls/hr IV . Q7H42M [facility] Rx#:[id number] Vancomycin 1,500 mg In 250 Sodium Chloride 0.9% 250 ml @ 125 mls/hr IVPB Q12H [facility] Rx#:[id number] Intake, IV Titration 463.975 Amount Norepinephrine 4 mg In 463.975 Sodium Chloride 0.9% 250 ml @ 0.05 MCG/KG/MIN 15. 03 mls/hr IV .[id number] [facility] Rx#:[id number] Blood Product 334 Platelet Pheresis Pas 334 Psoralen Unit [id number] Output: Urine 1100 200 Other: Voiding Method Indwelling Catheter - Constitutional General appearance: Present: no acute distress - EENT Eyes: Present: EOMI ENT: Present: hearing grossly normal, normal oropharynx - Respiratory Respiratory: bilateral: CTA - Cardiovascular Rhythm: regular Heart sounds: normal: S1, S2 - Gastrointestinal General gastrointestinal: Present: normal bowel sounds, soft - Integumentary Integumentary: Present: rash (contnued slow improvement) - Neurologic Neurologic: Present: CNII-XII intact - Musculoskeletal Musculoskeletal: Present: generalized weakness, strength equal bilaterally - Psychiatric Psychiatric: Present: A&O x's 3, appropriate affect - Labs CBC & Chem 7: 03/11/20 04:32 03/11/20 04:32 Labs: Abnormal Lab Results - Last 24 Hours (Table) 03/10/20 03/10/20 03/10/20 Range/Units 10:47 10:47 11:52 WBC (3.8-10.6) k/uL RBC (4.30-5.90) m/uL Hgb (13.0-17.5) gm/dL Hct (39.0-53.0) % Plt Count (150-450) k/uL PT (9.0-12.0) sec INR (<1.2) Sodium (137-145) mmol/L Chloride (98-107) mmol/L Carbon Dioxide (22-30) mmol/L BUN (9-20) mg/dL Plasma Lactic Acid Gonsalo (0.7-2.0) mmol/L Calcium (8.4-10.2) mg/dL Ferritin 1295.6 H (22.0-322.0) ng/mL AST (17-59) U/L Total Protein (6.3-8.2) g/dL Albumin (3.5-5.0) g/dL Procalcitonin 0.15 H (0.02-0.09) ng/mL Urine Protein 1+ H (Negative) Urine Blood (Negative) Urine RBC (0-5) /hpf Urine WBC (0-5) /hpf Urine Mucus Rare H (None) /hpf 03/10/20 03/10/20 03/11/20 Range/Units 15:04 18:02 00:10 WBC (3.8-10.6) k/uL RBC (4.30-5.90) m/uL Hgb (13.0-17.5) gm/dL Hct (39.0-53.0) % Plt Count (150-450) k/uL PT 13.1 H (9.0-12.0) sec INR 1.3 H (<1.2) Sodium (137-145) mmol/L Chloride (98-107) mmol/L Carbon Dioxide (22-30) mmol/L BUN (9-20) mg/dL Plasma Lactic Acid Gonsalo 4.3 H* (0.7-2.0) mmol/L Calcium (8.4-10.2) mg/dL Ferritin (22.0-322.0) ng/mL AST (17-59) U/L Total Protein (6.3-8.2) g/dL Albumin (3.5-5.0) g/dL Procalcitonin (0.02-0.09) ng/mL Urine Protein 1+ H (Negative) Urine Blood Large H (Negative) Urine RBC >182 H (0-5) /hpf Urine WBC 34 H (0-5) /hpf Urine Mucus Rare H (None) /hpf 03/11/20 03/11/20 Range/Units 04:32 04:32 WBC 0.4 L* (3.8-10.6) k/uL RBC 2.26 L (4.30-5.90) m/uL Hgb 7.2 L (13.0-17.5) gm/dL Hct 20.1 L (39.0-53.0) % Plt Count 8 L* D (150-450) k/uL PT (9.0-12.0) sec INR (<1.2) Sodium 133 L (137-145) mmol/L Chloride 108 H (98-107) mmol/L Carbon Dioxide 19 L (22-30) mmol/L BUN 21 H (9-20) mg/dL Plasma Lactic Acid Gonsalo (0.7-2.0) mmol/L Calcium 6.8 L (8.4-10.2) mg/dL Ferritin (22.0-322.0) ng/mL AST 15 L (17-59) U/L Total Protein 5.0 L (6.3-8.2) g/dL Albumin 2.3 L (3.5-5.0) g/dL Procalcitonin (0.02-0.09) ng/mL Urine Protein (Negative) Urine Blood (Negative) Urine RBC (0-5) /hpf Urine WBC (0-5) /hpf Urine Mucus (None) /hpf Microbiology - Last 24 Hours (Table) 03/10/20 10:47 Blood Culture Gram Stain - Preliminary Blood 03/11/20 00:10 Urine Culture - Preliminary Urine,Catheterized 03/10/20 10:47 Blood Culture - Final Blood Assessment and Plan (1) Sepsis Narrative/Plan: pt improved in terms of hemodynamics, and fever. Cultures +ve for gr -ve bacilli. On vanco and cefepime. Await Id/susc . Defer to ID for further antibiotic management Current Visit: Yes Status: Acute Code(s): A41.9 - SEPSIS, UNSPECIFIED ORGANISM SNOMED Code(s): 32970966 (2) Pancytopenia due to antineoplastic chemotherapy Narrative/Plan: 1 U plt today for plt < 10 . DIC labs -ve Continue to monitor and transfuse to keep hgb > 7, plt > 10 Current Visit: No Status: Acute Priority: High Code(s): D61.810 - ANTINEOPLASTIC CHEMOTHERAPY INDUCED PANCYTOPENIA; T45.1X5A - ADVERSE EFFECT OF ANTINEOPLASTIC AND IMMUNOSUP DRUGS, INIT SNOMED Code(s): 990827618030244 (3) Acute myeloid leukemia Current Visit: No Status: Acute Priority: High Code(s): C92.00 - ACUTE MYELOBLASTIC LEUKEMIA, NOT HAVING ACHIEVED REMISSION SNOMED Code(s): 43469348 Plan: Recurrent diarrhea, with some improvement this am. C diff pending
[2020-03-11] MEDS: SODIUM CHLORIDE 0.9% 1,000 ML IV SCH ×2 (12:42→18:12)
[2020-03-11] MEDS: FLUCONAZOLE IN NACL,ISO-OSM 200 MG in SALINE 1 100ML.BAG IVPB SCH (12:43)
[2020-03-11] MEDS: CEFEPIME 1 GM in SODIUM CHLORIDE 0.9% 50 ML IVPB SCH (16:00)
--- NOTE | 2020-03-11 16:42 | P.CNPUL ---
History of Present Illness Consult date: 03/11/20 Chief complaint: Hypotension, septic shock History of present illness: Mr Chand is a pleasant white male, initially seen in consult at [facility] on 01/13/20. It come into the hospital complaining of fever, chills. Further workup with a CBC on admission showed 6% blasts with other indices essentially normal. As this finding persisted patient had additional labs done, that were negative. He then underwent a bone marrow aspiration biopsy on 01/19/20. 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 Flow cytometry actually showed about 40% blasts. 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 AML fish was negative. 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 He was referred to the [facility] and seen by Dr Kowalski. Case was d/w him. Induction chemo with Vyxeos was recommended. He was started on Vyxeos and completed infuction day 5 of cycle one on 02/24. Patient called answering service 02/25 with complaints of nausea, vomiting, diarrhea and high fevers 102-102.4. Referred to emergency, and admitted for febrile neutropenia. During his admission he had evidence neutropenic colitis which improved with bowel rest and antibiotics. Cultures remained negative. He did require transfusion support during his admission, as expected. He had also developed a significant rash postchemotherapy which improved with steroids. His discharged on 03/07/20 on oral antibiotics with Augmentin.. He did receive a blood transfusion as an outpatient post discharge. The patient came back to the emergency room yesterday with increasing fever and a T-max was 103.1. He reported some chills and generalized body aches. He denied any cough, hemoptysis, shortness of breath for baseline, urinary complaints, recurrent abdominal pain, or change in bowel habits. Labs showed significant pancytopenia. He was found to be leukopenic with a white cell count of 0.4 and hemoglobin of 8.6 and the platelet count was 3K. The patient had a chest x-ray that showed no acute abnormality. UA was negative. Stool for C. diff was negative. The COVID 19 testing was negative. Influenza screen was negative. Ferritin was elevated, LDH was at 311 and the Pronestyl level was at 0.15. The patient has a PICC line in his left upper extremity and exit site is dry clean and intact. Note that the preliminary blood cultures showing gram- negative bacillus and I stressed this patient IV cefepime 2 g every 8 hours. T he patient was also given a combination of Diflucan and vancomycin. Note that the patient was initially admitted to the medical floor and subsequently was transferred to the ICU because of profound hypotension. He was given IV fluids and the patient received a total of 5 L of IV fluid. Producing adequate amount of urine output. He was started on pressors in the low-fat is running a 0.28 mg per KG per minute. At this point in terms of normal saline at the rate of 50 mL an hour. No other new complaints otherwise for now. The patient is awake and alert. No oropharyngeal candidiasis. Review of Systems Constitutional: Reports chills, Reports fever, Reports weakness Eyes: denies blurred vision, denies pain Ears: deny: decreased hearing, ear discharge, earache, tinnitus Ears, nose, mouth and throat: Denies headache, Denies sore throat Cardiovascular: Reports decreased exercise tolerance Respiratory: Denies cough Gastrointestinal: Reports diarrhea Genitourinary: Reports as per HPI Musculoskeletal: Reports muscle weakness Integumentary: Reports rash (due to chemotherapy, resolving with steroids) Neurological: Reports weakness Psychiatric: Denies anxiety, Denies depression Endocrine: Reports fatigue Hematologic/Lymphatic: Reports as per HPI Past Medical History Past Medical History: Cancer, CVA/TIA, Hyperlipidemia, Hypertension Additional Past Medical History / Comment(s): Left-sided spontaneous pneuomthorax; hemorrhagic stroke; left carotid stenosis 50%, AML History of Any Multi-Drug Resistant Organisms: None Reported Additional Past Surgical History / Comment(s): ACL replacement, PICC Past Anesthesia/Blood Transfusion Reactions: No Reported Reaction Past Psychological History: Anxiety, Depression Smoking Status: Former smoker Past Alcohol Use History: None Reported Past Drug Use History: None Reported - Past Family History Father Family Medical History: Unable to Obtain Additional Family Medical History / Comment(s): Unable to attain family medical history as patient was adopted Medications and Allergies Home Medications Medication Instructions Recorded Confirmed Type Atorvastatin [Lipitor] 40 mg PO DAILY 01/09/20 03/10/20 History FLUoxetine HCL [PROzac] 40 mg PO DAILY 01/09/20 03/10/20 History Gabapentin [Neurontin] 400 mg PO TID 01/09/20 03/10/20 History clonazePAM [KlonoPIN] 1 mg PO BID 01/09/20 03/10/20 History hydrOXYzine pamoate [Vistaril] 50 mg PO TID 01/09/20 03/10/20 History Acetaminophen [Tylenol] 650 mg PO Q4H PRN 02/26/20 03/10/20 History Omeprazole 20 mg PO DAILY 02/26/20 03/10/20 History Ondansetron [Zofran] 4 mg PO Q6H PRN 02/26/20 03/10/20 History lisinopriL [Zestril] 5 mg PO DAILY 02/26/20 03/10/20 History Amoxic-Pot Clav 875-125Mg 1 tab PO Q12HR #14 tab 03/07/20 03/10/20 Rx [Augmentin 875-125] Fluconazole [Diflucan] 100 mg PO DAILY #7 tab 03/07/20 03/10/20 Rx predniSONE See Taper PO DIRECTED #30 tab 03/07/20 03/10/20 Rx Allergies Allergy/AdvReac Type Severity Reaction Status Date / Time No Known Allergies Allergy Verified 03/10/20 10:53 Physical Exam Vitals: Vital Signs Temp Pulse Pulse Resp BP BP Pulse Ox 03/11/20 11:00 112 H 24 123/93 95 03/11/20 10:00 105 H 22 90/62 97 03/11/20 09:00 108 H 23 97/69 96 03/11/20 08:00 99.1 F 100 20 135/72 95 03/11/20 07:00 103 H 20 120/63 93 L 03/11/20 06:30 104 H 21 112/62 93 L 03/11/20 06:00 101 H 19 109/58 93 L 03/11/20 05:30 103 H 21 108/56 95 03/11/20 05:00 98 20 88/54 96 03/11/20 04:30 111 H 19 92/58 91 L 03/11/20 04:00 98.2 F 112 H 17 105/50 95 03/11/20 03:30 112 H 21 98/57 95 03/11/20 03:00 110 H 23 111/52 97 03/11/20 02:30 106 H 22 122/61 96 03/11/20 02:00 109 H 22 99/38 90 L 03/11/20 01:40 105 H 20 91/66 91 L 03/11/20 01:20 112 H 23 110/52 93 L 03/11/20 01:00 112 H 23 105/61 93 L 03/11/20 00:40 112 H 23 75/62 94 L 03/11/20 00:22 99.5 F 110 H 21 100/51 94 L 03/11/20 00:20 110 H 21 95/48 93 L 03/11/20 00:08 99.3 F 111 H 20 89/46 95 03/11/20 00:00 99.5 F 112 H 21 89/49 95 03/10/20 23:50 112 H 20 102/45 94 L 03/10/20 23:40 112 H 19 84/50 96 03/10/20 23:38 99.3 F 108 H 17 75/40 98 03/10/20 23:30 108 H 18 66/36 100 03/10/20 23:28 99.0 F 108 H 17 75/40 96 20 23:20 109 H 19 87/45 96 2020 23:10 109 H 20 83/47 92 L 03/10/20 23:00 110 H 18 89/43 91 L 03/10/20 22:50 109 H 18 88/46 94 L 03/10/20 22:40 107 H 19 87/44 95 20/20 22:30 109 H 20 87/48 97 2020 22:20 108 H 20 92/47 98 2020 22:10 110 H 17 95/39 98 20/20 22:00 111 H 18 83/45 95 20/20 21:50 113 H 13 90/50 99 20/20 21:40 111 H 14 91/48 98 20/20 21:30 105 H 17 94/46 99 20/20 21:20 106 H 18 110/44 98 20/20 21:10 101 H 17 88/51 98 20/20 21:00 101 H 18 96/42 98 20/20 20:50 100 20 78/46 98 20/20 20:40 96 17 77/39 99 11/20/20 20:30 92 20 76/35 100 03/10/20 20:20 92 20 64/35 100 03/10/20 20:10 97 22 73/40 95 03/10/20 20:00 99.3 F 96 17 79/42 94 L 03/10/20 19:50 98 17 70/40 96 03/10/20 19:40 101 H 21 70/40 89 L 03/10/20 19:30 95 16 69/43 92 L 03/10/20 17:33 102.9 F H 96 20 70/32 Intake and Output 03/11/20 03/11/20 03/11/20 06:59 14:59 22:59 Intake Total 1231.240 996.942 40.882 Output Total 850 930 Balance 381.240 66.942 40.882 Intake: IV 550 475 Sodium Chloride 0.9% 1, 425 000 ml @ 125 mls/hr IV . Q8H RAMEZ Rx#:[id number] Sodium Chloride 0.9% 1, 300 50 000 ml @ 130 mls/hr IV . Q7H42M STA Rx#:[id number] Vancomycin 1,500 mg In 250 Sodium Chloride 0.9% 250 ml @ 125 mls/hr IVPB Q12H RAMEZ Rx#:[id number] Intake, IV Titration 347.240 421.942 40.882 Amount Norepinephrine 4 mg In 347.240 421.942 40.882 Sodium Chloride 0.9% 250 ml @ 0.05 MCG/KG/MIN 15. 03 mls/hr IV .[id number] RAMEZ Rx#:[id number] Oral 100 Blood Product 334 Platelet Pheresis Pas 334 Psoralen Unit [id number] Output: Urine 850 930 Other: Voiding Method Indwelling Catheter Weight 80.2 kg The patient appeared well nourished and normally developed. Vital signs as documented. Head exam is unremarkable. No scleral icterus or corneal arcus noted. Neck is without jugular venous distension, thyromegaly, or carotid bruits. Carotid upstrokes are brisk bilaterally. Lungs are clear to auscultation and percussion. Cardiac exam reveals the PMI to be normally sized and situated. Rhythm is regular. First and second heart sounds normal. No murmurs, rubs or gallops. Abdominal exam reveals normal bowel sounds, no masses, no organomegaly and no aortic enlargement. Extremities are nonedematous and both femoral and pedal pulses are normal. Examination of skin shows a rash in the lower extremities in the abdomen which is essentially improved compared to the earlier evaluation.Neurologically, the patient is awake and alert and the patient does not have any focal neurological deficit. Cranial nerves are essentially intact. The patient is a PICC line in left upper extremity and exit site is dry clean and intact. Results - Laboratory Findings CBC and BMP: 03/11/20 04:32 03/11/20 04:32 PT/INR, D-dimer PT 13.1 sec (9.0-12.0) H 03/10/20 18:02 INR 1.3 (<1.2) H 03/10/20 18:02 Abnormal lab findings: Abnormal Labs 03/10/20 03/10/20 03/10/20 10:47 10:47 10:47 WBC 0.4 L* RBC 2.80 L Hgb 8.6 L Hct 25.1 L Plt Count 3 L* PT INR Sodium 134 L Chloride Carbon Dioxide BUN 21 H Glucose 114 H Plasma Lactic Acid Gonsalo 3.4 H* Calcium Ferritin 1295.6 H AST 14 L Lactate Dehydrogenase 311 L C-Reactive Protein 50.6 H Total Protein Albumin 3.2 L Procalcitonin Urine Protein Urine Blood Urine RBC Urine WBC Urine Mucus 03/10/20 03/10/20 03/10/20 10:47 11:52 15:04 WBC RBC Hgb Hct Plt Count PT INR Sodium Chloride Carbon Dioxide BUN Glucose Plasma Lactic Acid Gonsalo 4.3 H* Calcium Ferritin AST Lactate Dehydrogenase C-Reactive Protein Total Protein Albumin Procalcitonin 0.15 H Urine Protein 1+ H Urine Blood Urine RBC Urine WBC Urine Mucus Rare H 03/10/20 03/11/20 03/11/20 18:02 00:10 04:32 WBC 0.4 L* RBC 2.26 L Hgb 7.2 L Hct 20.1 L Plt Count 8 L* D PT 13.1 H INR 1.3 H Sodium Chloride Carbon Dioxide BUN Glucose Plasma Lactic Acid Gonsalo Calcium Ferritin AST Lactate Dehydrogenase C-Reactive Protein Total Protein Albumin Procalcitonin Urine Protein 1+ H Urine Blood Large H Urine RBC >182 H Urine WBC 34 H Urine Mucus Rare H 03/11/20 04:32 WBC RBC Hgb Hct Plt Count PT INR Sodium 133 L Chloride 108 H Carbon Dioxide 19 L BUN 21 H Glucose Plasma Lactic Acid Gonsalo Calcium 6.8 L Ferritin AST 15 L Lactate Dehydrogenase C-Reactive Protein Total Protein 5.0 L Albumin 2.3 L Procalcitonin Urine Protein Urine Blood Urine RBC Urine WBC Urine Mucus - Diagnostic Findings Chest x-ray: image reviewed Assessment and Plan Plan: 1 septic shock likely secondary to gram-negative bacteria. Consider bacterial translocation from the intestine as the patient was having abdominal pain on an earlier evaluation with neutropenic colitis. The patient was discharged home on Augmentin and currently is coming in with a gram-negative septicemia. On exami [facility], his abdomen is stable and the patient is not having any significant abdominal pain 2 hypotension secondary to above. The patient has been aggressively resuscitated IV fluids and the patient is currently on an pressors. This is secondary to septic shock 3 pancytopenia due to chemotherapy. The patient received platelets as the patient platelet count is at 30,000. We'll monitor this of the hematologic profile 4 acute myelogenous leukemia post induction chemotherapy awaiting recovery of counts prior to repeating his bone marrow evaluation 5 CVA with history of hemorrhagic stroke 6. History of spontaneous left-sided pneumothorax 7 carotid artery stenosis in the order of 50% 8 history of hypertension 9 hyperlipidemia 10 non-anion gap metabolic acidosis Plan Continue IV fluid at the rate of 125 mL an hour of normal saline Continued IV cefepime in combination with vancomycin and Diflucan Wean off pressors as the patient blood pressure is improving The patient has already been transfused total of 2 packed RBC and the patient will also need it irritated platelets regarding his severe thrombocytopenia and the hematologic profile is being monitored by Dr. Rees Keep the patient ICU. We'll monitor his hemodynamics. We'll continue to follow make further recommendations based on his progress. His condition is critical at this point in time.
--- NOTE | 2020-03-11 23:08 | P.CONS ---
History of Present Illness - Reason for Consult Consult date: 03/11/20 Febrile neutropenia and bacteremia Requesting physician: Edwin Rees - Chief Complaint Fever x one day - History of Present Illness Patient is 69 year male with a past medical history significant for leukemia in this patient with status post induction chemotherapy the patient did develop generalized maculopapular rash to his chemotherapy and he was recently admitted at this facility with febrile neutropenia patient did have extensive workup and all his culture were negative patient clinically responded to additional Solu-Medrol and no discharge was recommended a tapering course of steroids in addition to Augmentin and Diflucan patient now presenting back to the [facility] ER yesterday for evaluation of fever that started yesterday patient denies having any headache or URI symptoms denies any chest pain or shortness of breath minimal cough currently not on any supplemental oxygen denies any nausea or vomiting or bone pain did have some diarrhea with the symptoms and the patient was evaluated by the physician on arrival to the emergency room the patient did have a fever of 103F influenza A and mccurdy PCR negative, stool for C. diff negative, patient did have a chest x-ray with mild strandy density right lung base without focal consolation patient was started on vancomycin and cefepime and Diflucan patient was admitted to the ICU subsequent blood cultures came back positive with gram-negative bacilli Review of Systems Positive point has been mentioned in the HPI rest of the systems are negative Past Medical History Past Medical History: Cancer, CVA/TIA, Hyperlipidemia, Hypertension Additional Past Medical History / Comment(s): Left-sided spontaneous pneuomthorax; hemorrhagic stroke; left carotid stenosis 50%, Leukemia History of Any Multi-Drug Resistant Organisms: None Reported Additional Past Surgical History / Comment(s): ACL replacement, PICC Past Anesthesia/Blood Transfusion Reactions: No Reported Reaction Past Psychological History: Anxiety, Depression Smoking Status: Former smoker Past Alcohol Use History: None Reported Past Drug Use History: None Reported - Past Family History Father Family Medical History: Unable to Obtain Additional Family Medical History / Comment(s): Unable to attain family medical history as patient was adopted Medications and Allergies Home Medications Medication Instructions Recorded Confirmed Type Atorvastatin [Lipitor] 40 mg PO DAILY 01/09/20 03/10/20 History FLUoxetine HCL [PROzac] 40 mg PO DAILY 01/09/20 03/10/20 History Gabapentin [Neurontin] 400 mg PO TID 01/09/20 03/10/20 History clonazePAM [KlonoPIN] 1 mg PO BID 01/09/20 03/10/20 History hydrOXYzine pamoate [Vistaril] 50 mg PO TID 01/09/20 03/10/20 History Acetaminophen [Tylenol] 650 mg PO Q4H PRN 02/26/20 03/10/20 History Omeprazole 20 mg PO DAILY 02/26/20 03/10/20 History Ondansetron [Zofran] 4 mg PO Q6H PRN 02/26/20 03/10/20 History lisinopriL [Zestril] 5 mg PO DAILY 02/26/20 03/10/20 History Amoxic-Pot Clav 875-125Mg 1 tab PO Q12HR #14 tab 03/07/20 03/10/20 Rx [Augmentin 875-125] Fluconazole [Diflucan] 100 mg PO DAILY #7 tab 03/07/20 03/10/20 Rx predniSONE See Taper PO DIRECTED #30 tab 03/07/20 03/10/20 Rx Allergies Allergy/AdvReac Type Severity Reaction Status Date / Time No Known Allergies Allergy Verified 03/10/20 10:53 Physical Exam Vitals: Vital Signs Temp Pulse Pulse Resp BP BP Pulse Ox 03/11/20 11:00 112 H 24 123/93 95 03/11/20 10:00 105 H 22 90/62 97 03/11/20 09:00 108 H 23 97/69 96 03/11/20 08:00 99.1 F 100 20 135/72 95 03/11/20 07:00 103 H 20 120/63 93 L 03/11/20 06:30 104 H 21 112/62 93 L 03/11/20 06:00 101 H 19 109/58 93 L 03/11/20 05:30 103 H 21 108/56 95 03/11/20 05:00 98 20 88/54 96 03/11/20 04:30 111 H 19 92/58 91 L 03/11/20 04:00 98.2 F 112 H 17 105/50 95 03/11/20 03:30 112 H 21 98/57 95 03/11/20 03:00 110 H 23 111/52 97 03/11/20 02:30 106 H 22 122/61 96 03/11/20 02:00 109 H 22 99/38 90 L 03/11/20 01:40 105 H 20 91/66 91 L 03/11/20 01:20 112 H 23 110/52 93 L 03/11/20 01:00 112 H 23 105/61 93 L 03/11/20 00:40 112 H 23 75/62 94 L 03/11/20 00:22 99.5 F 110 H 21 100/51 94 L 03/11/20 00:20 110 H 21 95/48 93 L 03/11/20 00:08 99.3 F 111 H 20 89/46 95 03/11/20 00:00 99.5 F 112 H 21 89/49 95 03/10/20 23:50 112 H 20 102/45 94 L 03/10/20 23:40 112 H 19 84/50 96 2020 23:38 99.3 F 108 H 17 75/40 98 2020 23:30 108 H 18 66/36 100 2020 23:28 99.0 F 108 H 17 75/40 96 2020 23:20 109 H 19 87/45 96 2020 23:10 109 H 20 83/47 92 L 03/10/20 23:00 110 H 18 89/43 91 L 03/10/20 22:50 109 H 18 88/46 94 L 2020 22:40 107 H 19 87/44 95 20/20 22:30 109 H 20 87/48 97 20/20 22:20 108 H 20 92/47 98 20/20 22:10 110 H 17 95/39 98 20/20 22:00 111 H 18 83/45 95 20/20 21:50 113 H 13 90/50 99 20/20 21:40 111 H 14 91/48 98 20/20 21:30 105 H 17 94/46 99 20/20 21:20 106 H 18 110/44 98 20/20 21:10 101 H 17 88/51 98 20/20 21:00 101 H 18 96/42 98 20/20 20:50 100 20 78/46 98 20/20 20:40 96 17 77/39 99 11/20/20 20:30 92 20 76/35 100 03/10/20 20:20 92 20 64/35 100 03/10/20 20:10 97 22 73/40 95 03/10/20 20:00 99.3 F 96 17 79/42 94 L 03/10/20 19:50 98 17 70/40 96 03/10/20 19:40 101 H 21 70/40 89 L 03/10/20 19:30 95 16 69/43 92 L 03/10/20 17:33 102.9 F H 96 20 70/32 03/10/20 15:51 103.1 F H 110 H 18 124/67 96 Intake and Output 03/10/20 03/11/20 03/11/20 22:59 06:59 14:59 Intake Total 2448.258 1723.240 969.285 Output Total 250 850 930 Balance 1016.735 381.240 39.285 Intake: IV 1150 550 475 Cefepime 1 gm In Sodium 150 Chloride 0.9% 50 ml @ 12. 5 mls/hr IVPB Q12HR RAMEZ Rx#:[id number] Sodium Chloride 0.9% 1, 425 000 ml @ 125 mls/hr IV . Q8H RAMEZ Rx#:[id number] Sodium Chloride 0.9% 1, 1000 300 50 000 ml @ 130 mls/hr IV . Q7H42M STA Rx#:[id number] Vancomycin 1,500 mg In 250 Sodium Chloride 0.9% 250 ml @ 125 mls/hr IVPB Q12H RAMEZ Rx#:[id number] Intake, IV Titration 116.735 347.240 394.285 Amount Norepinephrine 4 mg In 116.735 347.240 394.285 Sodium Chloride 0.9% 250 ml @ 0.05 MCG/KG/MIN 15. 03 mls/hr IV .[id number] RAMEZ Rx#:[id number] Oral 100 Blood Product 334 Platelet Pheresis Pas 334 Psoralen Unit [id number] Output: Urine 250 850 930 Other: Voiding Method Indwelling Catheter Weight 78.9 kg 80.2 kg GENERAL DESCRIPTION: An elderly male lying in bed, no distress. No tachypnea or accessory muscle of respiration use. HEENT: Shows Pallor , no scleral icterus. Oral mucous membrane is dry. No pharyngeal erythema or thrush NECK: Trachea central, no thyromegaly. LUNGS: Unlabored breathing. Decreased breath sounds at [employer] [place]. No wheeze or crackle. HEART: S1, S2, regular rate and rhythm. No loud murmur ABDOMEN: Soft, no tenderness , guarding or rigidity, no organomegaly EXTREMITIES: No edema of feet. SKIN: No rash, no masses palpable. NEUROLOGICAL: The patient is awake, alert, oriented x3, mood and affect normal. Results CBC & Chem 7: 03/11/20 04:32 03/11/20 04:32 Labs: Abnormal Lab Results - Last 24 Hours (Table) 03/10/20 03/10/20 03/10/20 Range/Units 10:47 10:47 15:04 WBC (3.8-10.6) k/uL RBC (4.30-5.90) m/uL Hgb (13.0-17.5) gm/dL Hct (39.0-53.0) % Plt Count (150-450) k/uL PT (9.0-12.0) sec INR (<1.2) Sodium (137-145) mmol/L Chloride (98-107) mmol/L Carbon Dioxide (22-30) mmol/L BUN (9-20) mg/dL Plasma Lactic Acid Gonsalo 4.3 H* (0.7-2.0) mmol/L Calcium (8.4-10.2) mg/dL Ferritin 1295.6 H (22.0-322.0) ng/mL AST (17-59) U/L Total Protein (6.3-8.2) g/dL Albumin (3.5-5.0) g/dL Procalcitonin 0.15 H (0.02-0.09) ng/mL Urine Protein (Negative) Urine Blood (Negative) Urine RBC (0-5) /hpf Urine WBC (0-5) /hpf Urine Mucus (None) /hpf 03/10/20 03/11/20 03/11/20 Range/Units 18:02 00:10 04:32 WBC 0.4 L* (3.8-10.6) k/uL RBC 2.26 L (4.30-5.90) m/uL Hgb 7.2 L (13.0-17.5) gm/dL Hct 20.1 L (39.0-53.0) % Plt Count 8 L* D (150-450) k/uL PT 13.1 H (9.0-12.0) sec INR 1.3 H (<1.2) Sodium (137-145) mmol/L Chloride (98-107) mmol/L Carbon Dioxide (22-30) mmol/L BUN (9-20) mg/dL Plasma Lactic Acid Gonsalo (0.7-2.0) mmol/L Calcium (8.4-10.2) mg/dL Ferritin (22.0-322.0) ng/mL AST (17-59) U/L Total Protein (6.3-8.2) g/dL Albumin (3.5-5.0) g/dL Procalcitonin (0.02-0.09) ng/mL Urine Protein 1+ H (Negative) Urine Blood Large H (Negative) Urine RBC >182 H (0-5) /hpf Urine WBC 34 H (0-5) /hpf Urine Mucus Rare H (None) /hpf 03/11/20 Range/Units 04:32 WBC (3.8-10.6) k/uL RBC (4.30-5.90) m/uL Hgb (13.0-17.5) gm/dL Hct (39.0-53.0) % Plt Count (150-450) k/uL PT (9.0-12.0) sec INR (<1.2) Sodium 133 L (137-145) mmol/L Chloride 108 H (98-107) mmol/L Carbon Dioxide 19 L (22-30) mmol/L BUN 21 H (9-20) mg/dL Plasma Lactic Acid Gonsalo (0.7-2.0) mmol/L Calcium 6.8 L (8.4-10.2) mg/dL Ferritin (22.0-322.0) ng/mL AST 15 L (17-59) U/L Total Protein 5.0 L (6.3-8.2) g/dL Albumin 2.3 L (3.5-5.0) g/dL Procalcitonin (0.02-0.09) ng/mL Urine Protein (Negative) Urine Blood (Negative) Urine RBC (0-5) /hpf Urine WBC (0-5) /hpf Urine Mucus (None) /hpf Microbiology - Last 24 Hours (Table) 03/10/20 10:47 Blood Culture Gram Stain - Preliminary Blood 03/11/20 00:10 Urine Culture - Preliminary Urine,Catheterized 03/10/20 10:47 Blood Culture - Final Blood Assessment and Plan Assessment: 1-patient presented to the hospital with febrile neutropenia in this patient who recently did have similar presentation to an did have extensive workup that was negative and he was concerned more likely source of fever being his generalized macular papular rash on the skin, however the patient did have evidence of gram-negative bacteremia in this patient currently with no significant abdominal pain no tenderness in view is no significant positive with a question of possibly related to his PICC line (1) Febrile neutropenia Current Visit: Yes Status: Acute Code(s): D70.9 - NEUTROPENIA, UNSPECIFIED; R50.81 - FEVER PRESENTING WITH CONDITIONS CLASSIFIED ELSEWHERE SNOMED Code(s): 157115333 (2) Gram-negative bacteremia Current Visit: Yes Status: Acute Code(s): R78.81 - BACTEREMIA SNOMED Code(s): 762019424799 (3) Sepsis Current Visit: Yes Status: Acute Code(s): A41.9 - SEPSIS, UNSPECIFIED ORGANISM SNOMED Code(s): 81433344 Plan: 1-blood cultures will be repeated from the PICC line and peripherally 2-cefepime 2 g every 8 hours We will follow on clinical condition and cultures to further adjust medication if needed Thank you for this consultation will follow this patient with you Time with Patient: Greater than 30
[2020-03-12] MEDS: CEFEPIME 1 GM in SODIUM CHLORIDE 0.9% 50 ML IVPB SCH ×3 (00:09→17:37)
[2020-03-12] MEDS: ACETAMINOPHEN TAB 325 MG TAB PO PRN ×3 (00:12→18:50)
[2020-03-12] MEDS: VANCOMYCIN 1,500 MG in SODIUM CHLORIDE 0.9% 250 ML IVPB SCH (01:51)
[2020-03-12] MEDS: SODIUM CHLORIDE 0.9% 1,000 ML IV SCH ×3 (01:51→19:46)
[2020-03-12 04:57] LABS: MCH 31.1 pg (25.0-35.0); MCHC 34.5 g/dL (31.0-37.0); MCV 90.1 fL (80.0-100.0); Mean Platelet Volume 6.7; RBC 1.96 m/uL (4.30-5.90); RDW 14.8 % (11.5-15.5)
[2020-03-12 05:14] LABS: WBC 0.3 k/uL (3.8-10.6)
[2020-03-12 05:17] LABS: HGB 6.1 gm/dL (13.0-17.5); Platelet Count 2 k/uL (150-450)
[2020-03-12 05:18] LABS: HCT 17.7 % (39.0-53.0)
[2020-03-12 05:26] LABS: Glucose,Whole Blood 109 mg/dL (75-99)
[2020-03-12 05:39] LABS: ALT 15 U/L (4-49); AST 14 U/L (17-59); African American GFR (CKD) >90 (>60 ml/min/1.73 sqM); Albumin 2.1 g/dL (3.5-5.0); Alkaline Phosphatase 46 U/L (38-126); Anion Gap 7 mmol/L; Blood Urea Nitrogen 12 mg/dL (9-20); Calcium 6.8 mg/dL (8.4-10.2); Carbon Dioxide 20 mmol/L (22-30); Chloride 110 mmol/L (98-107); Glucose 110 mg/dL (74-99); Non-African American GFR(CKD) 81 (>60 ml/min/1.73 sqM); Potassium 3.1 mmol/L (3.5-5.1); Sodium 137 mmol/L (137-145); Total Bilirubin 0.7 mg/dL (0.2-1.3); Total Protein 4.9 g/dL (6.3-8.2)
[2020-03-12] MEDS ORDERED: Potassium Replacement Protocol 1 EACH MISC MISCELLANE PRN (05:41)
[2020-03-12] MEDS: POTASSIUM CHLORIDE ER 20 MEQ TAB.ER PO SCH ×2 (05:56→06:48)
[2020-03-12] MEDS: PANTOPRAZOLE 40 MG TABLET PO SCH (07:06)
[2020-03-12] MEDS: FLUoxetine HCL 20 MG CAP PO SCH (08:59)
--- NOTE | 2020-03-12 11:53 | P.PN ---
Subjective Progress Note Date: 03/12/20 The patient continues to have fever, with highest times in the low 102 range. Blood pressure is improved. Patient is having loose stools, 1-2 per day. He denies any shortness of breath over baseline or cough Objective - Vital Signs Vital signs: Vital Signs Temp 99.7 F H 03/12/20 10:37 Pulse 101 H 03/12/20 10:37 Resp 22 03/12/20 10:37 BP 161/66 03/12/20 10:37 Pulse Ox 94 L 03/12/20 10:37 Intake & Output 03/11/20 03/12/20 03/12/20 18:59 06:59 18:59 Intake Total 4092.897 9932.358 1035 Output Total 1905 1720 220 Balance -65.523 81.358 815 Weight 83.4 kg Intake: IV 1150 1375 125 Cefepime 1 gm In Sodium 50 Chloride 0.9% 50 ml @ 12. 5 mls/hr IVPB Q12HR [facility] Rx#:[id number] Sodium Chloride 0.9% 1, 925 1375 125 000 ml @ 125 mls/hr IV . Q8H [facility] Rx#:[id number] Sodium Chloride 0.9% 1, 50 000 ml @ 130 mls/hr IV . Q7H42M [facility] Rx#:[id number] Vancomycin 1,500 mg In 125 Sodium Chloride 0.9% 250 ml @ 125 mls/hr IVPB Q12H [facility] Rx#:[id number] Intake, IV Titration 489.477 129.358 Amount Norepinephrine 4 mg In 489.477 129.358 Sodium Chloride 0.9% 250 ml @ 0.05 MCG/KG/MIN 15. 03 mls/hr IV .[id number] [facility] Rx#:[id number] Oral 200 600 Blood Product 297 310 Platelet Irr Pheresis 2 0 Acda Unit [id number] Platelet Pheresis Pas 297 Psoralen Unit [id number] Rc Irr As1 Unit 0 310 [id number] Output: Urine 1905 1720 220 Other: Voiding Method Indwelling Catheter Indwelling Catheter - Constitutional General appearance: Present: no acute distress - EENT Eyes: Present: EOMI ENT: Present: hearing grossly normal, normal oropharynx - Respiratory Respiratory: bilateral: CTA - Cardiovascular Rhythm: regular Heart sounds: normal: S1, S2 - Gastrointestinal General gastrointestinal: Present: normal bowel sounds, soft - Integumentary Integumentary: Present: rash (Stable, resolving) - Neurologic Neurologic: Present: CNII-XII intact - Musculoskeletal Musculoskeletal: Present: generalized weakness, strength equal bilaterally - Psychiatric Psychiatric: Present: A&O x's 3, appropriate affect - Labs CBC & Chem 7: 03/12/20 03:52 03/12/20 03:52 Labs: Abnormal Lab Results - Last 24 Hours (Table) 03/10/20 03/12/20 03/12/20 Range/Units 19:15 03:52 03:52 WBC 0.3 L* (3.8-10.6) k/uL RBC 1.96 L (4.30-5.90) m/uL Hgb 6.1 L* (13.0-17.5) gm/dL Hct 17.7 L* (39.0-53.0) % Plt Count 2 L* D (150-450) k/uL Potassium 3.1 L (3.5-5.1) mmol/L Chloride 110 H (98-107) mmol/L Carbon Dioxide 20 L (22-30) mmol/L Glucose 110 H (74-99) mg/dL POC Glucose (mg/dL) (75-99) mg/dL Calcium 6.8 L (8.4-10.2) mg/dL AST 14 L (17-59) U/L Total Protein 4.9 L (6.3-8.2) g/dL Albumin 2.1 L (3.5-5.0) g/dL Crossmatch See Detail 03/12/20 Range/Units 05:23 WBC (3.8-10.6) k/uL RBC (4.30-5.90) m/uL Hgb (13.0-17.5) gm/dL Hct (39.0-53.0) % Plt Count (150-450) k/uL Potassium (3.5-5.1) mmol/L Chloride (98-107) mmol/L Carbon Dioxide (22-30) mmol/L Glucose (74-99) mg/dL POC Glucose (mg/dL) 109 H (75-99) mg/dL Calcium (8.4-10.2) mg/dL AST (17-59) U/L Total Protein (6.3-8.2) g/dL Albumin (3.5-5.0) g/dL Crossmatch Microbiology - Last 24 Hours (Table) 03/10/20 10:47 Blood Culture Gram Stain - Preliminary Blood Blood Culture - Preliminary Gram Neg Bacilli 03/11/20 00:10 Urine Culture - Preliminary Urine,Catheterized Assessment and Plan (1) Sepsis Narrative/Plan: Due to gram-negative bacteremia. Hemodynamics are improved especially in terms of blood pressure. Awaiting identification on cultures. Continue broad-spect rum antibiotics including cefepime. Defer to ID for continued antibiotic management. Source not known. At this time GI versus PICC line are both in the differential Current Visit: Yes Status: Acute Code(s): A41.9 - SEPSIS, UNSPECIFIED ORGANISM SNOMED Code(s): 76840124 (2) Pancytopenia due to antineoplastic chemotherapy Narrative/Plan: Persistent, as expected given with the patient is in in terms of phase of treatment. Blood count recovery is likely not expected for at least another week. Therefore continue to monitor and treat supportively with transfusions as needed to keep hemoglobin greater than 7 and platelets greater than 10. He re ceived 1 unit of PRBC and a unit of platelets today or hemoglobin of 6.1 and platelets of 2. Current Visit: No Status: Acute Priority: High Code(s): D61.810 - ANTINEOPLASTIC CHEMOTHERAPY INDUCED PANCYTOPENIA; T45.1X5A - ADVERSE EFFECT OF ANTINEOPLASTIC AND IMMUNOSUP DRUGS, INIT SNOMED Code(s): 374855687256892 (3) Acute myeloid leukemia Narrative/Plan: Status post induction chemotherapy. Awaiting recovery of counts. This is likely not expected for at least another week. Current Visit: No Status: Acute Priority: High Code(s): C92.00 - ACUTE MYELOBLASTIC LEUKEMIA, NOT HAVING ACHIEVED REMISSION SNOMED Code(s): 66832107
[2020-03-12] MEDS ORDERED: VANCOMYCIN TROUGH DUE 1 EACH MISC MISCELLANE ONE (13:00)
[2020-03-12] MEDS: clonazePAM 1 MG TAB PO SCH ×2 (13:41→19:46)
[2020-03-12] MEDS: FLUCONAZOLE IN NACL,ISO-OSM 200 MG in SALINE 1 100ML.BAG IVPB SCH (13:41)
[2020-03-12] MEDS ORDERED: VANCOMYCIN 1,750 MG in SODIUM CHLORIDE 0.9% 500 ML 500 ML IVPB SCH (15:00)
--- NOTE | 2020-03-12 15:21 | P.PN ---
Subjective Progress Note Date: 03/12/20 Mr Chand is a pleasant white male, initially seen in consult at [facility] on 01/13/20. It come into the hospital complaining of fever, chills. Further workup with a CBC on admission showed 6% blasts with other indices essentially normal. As this finding persisted patient had additional labs done, that were negative. He then underwent a bone marrow aspiration biopsy on 01/19/20. 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 Flow cytometry actually showed about 40% blasts. 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 AML fish was negative. 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 He was referred to the [facility] and seen by Dr Kowalski. Case was d/w him. Induction chemo with Vyxeos was recommended. He was started on Vyxeos and completed infuction day 5 of cycle one on 02/24. Patient called answering service 02/25 with complaints of nausea, vomiting, diarrhea and high fevers 102-102.4. Referred to emergency, and admitted for febrile neutropenia. During his admission he had evidence neutropenic colitis which improved with bowel rest and antibiotics. Cultures remained negative. He did require transfusion support during his admission, as expected. He had also developed a significant rash postchemotherapy which improved with steroids. His discharged on 03/07/20 on oral antibiotics with Augmentin.. He did receive a blood transfusion as an outpatient post discharge. The patient came back to the emergency room yesterday with increasing fever and a T-max was 103.1. He reported some chills and generalized body aches. He denied any cough, hemoptysis, shortness of breath for baseline, urinary complaints, recurrent abdominal pain, or change in bowel habits. Labs showed significant pancytopenia. He was found to be leukopenic with a white cell count of 0.4 and hemoglobin of 8.6 and the platelet count was 3K. The patient had a chest x-ray that showed no acute abnormality. UA was negative. Stool for C. diff was negative. The COVID 19 testing was negative. Influenza screen was negative. Ferritin was elevated, LDH was at 311 and the Pronestyl level was at 0.15. The patient has a PICC line in his left upper extremity and exit site is dry clean and intact. Note that the preliminary blood cultures showing gram- negative bacillus and I stressed this patient IV cefepime 2 g every 8 hours. The patient was also given a combination of Diflucan and vancomycin. Note that the patient was initially admitted to the medical floor and subsequently was transferred to the ICU because of profound hypotension. He was given IV fluids and the patient received a total of 5 L of IV fluid. Producing adequate amount of urine output. He was started on pressors in the low-fat is running a 0.28 mg per KG per minute. At this point in terms of normal saline at the rate of 50 mL an hour. No other new complaints otherwise for now. The patient is awake and alert. No oropharyngeal candidiasis. 03/12/2020, the patient continues to be in the intensive care unit is being treated for gram-negative sepsis. The patient has been having episodes of fever with the highest temperature of 102. Blood pressures improved and the patient is currently off pressors. Denies having any respiratory distress. As mentioned earlier, the patient has a gram-negative sepsis which I think is related to neutropenic colitis. No nausea. No vomiting. No abdominal pain. He has a fecal management system in place. Stool for C. diff will be also sent. The patient has been off levo fed since 3:00 this morning. The patient has hemoglobin of 6.1. The patient will need packed RBC transfusion and this has been ordered. Platelet count of 3000 and he would also need a platelet transfusion. The patient is currently on IV fluids at the rate of 125 mL an hour. Antibiotic coverage includes a combination of cefepime vancomycin and Diflucan. Hematology oncology is on the case. ID is on the case. No altered mentation. PICC line site is dry clean and intact. Objective - Vital Signs Vital signs: Vital Signs Temp 98.7 F 03/12/20 11:37 Pulse 88 03/12/20 11:37 Resp 15 03/12/20 11:37 BP 149/66 03/12/20 11:37 Pulse Ox 96 03/12/20 11:37 Intake & Output 03/11/20 03/12/20 03/12/20 18:59 06:59 18:59 Intake Total 6099.122 4197.358 1646 Output Total 1905 1720 430 Balance -65.523 81.358 1216 Weight 83.4 kg Intake: IV 1150 1375 300 Cefepime 1 gm In Sodium 50 50 Chloride 0.9% 50 ml @ 12. 5 mls/hr IVPB Q12HR [facility] Rx#:[id number] Sodium Chloride 0.9% 1, 925 1375 250 000 ml @ 125 mls/hr IV . Q8H [facility] Rx#:[id number] Sodium Chloride 0.9% 1, 50 000 ml @ 130 mls/hr IV . Q7H42M [facility] Rx#:[id number] Vancomycin 1,500 mg In 125 Sodium Chloride 0.9% 250 ml @ 125 mls/hr IVPB Q12H [facility] Rx#:[id number] Intake, IV Titration 489.477 129.358 Amount Norepinephrine 4 mg In 489.477 129.358 Sodium Chloride 0.9% 250 ml @ 0.05 MCG/KG/MIN 15. 03 mls/hr IV .[id number] [facility] Rx#:[id number] Oral 200 836 Blood Product 297 510 Platelet Irr Pheresis 2 200 Acda Unit [id number] Platelet Pheresis Pas 297 Psoralen Unit [id number] Rc Irr As1 Unit 0 310 [id number] Output: Urine 1905 1720 430 Other: Voiding Method Indwelling Catheter Indwelling Catheter Indwelling Catheter - Exam The patient appeared well nourished and normally developed. Vital signs as documented. Head exam is unremarkable. No scleral icterus or corneal arcus noted. Neck is without jugular venous distension, thyromegaly, or carotid bruits. Carotid upstrokes are brisk bilaterally. Lungs are clear to auscultation and percussion. Cardiac exam reveals the PMI to be normally sized and situated. Rhythm is regular. First and second heart sounds normal. No murmurs, rubs or gallops. Abdominal exam reveals normal bowel sounds, no masses, no organomegaly and no aortic enlargement. Extremities are nonedematous and both femoral and pedal pulses are normal. Examination of skin shows a rash in the lower extremi ties in the abdomen which is essentially improved compared to the earlier evaluation.Neurologically, the patient is awake and alert and the patient does not have any focal neurological deficit. Cranial nerves are essentially intact. The patient is a PICC line in left upper extremity and exit site is dry clean and intact. - Labs CBC & Chem 7: 03/12/20 03:52 03/12/20 03:52 Labs: Abnormal Lab Results - Last 24 Hours (Table) 03/10/20 03/12/20 03/12/20 Range/Units 19:15 03:52 03:52 WBC 0.3 L* (3.8-10.6) k/uL RBC 1.96 L (4.30-5.90) m/uL Hgb 6.1 L* (13.0-17.5) gm/dL Hct 17.7 L* (39.0-53.0) % Plt Count 2 L* D (150-450) k/uL Potassium 3.1 L (3.5-5.1) mmol/L Chloride 110 H (98-107) mmol/L Carbon Dioxide 20 L (22-30) mmol/L Glucose 110 H (74-99) mg/dL POC Glucose (mg/dL) (75-99) mg/dL Calcium 6.8 L (8.4-10.2) mg/dL AST 14 L (17-59) U/L Total Protein 4.9 L (6.3-8.2) g/dL Albumin 2.1 L (3.5-5.0) g/dL Crossmatch See Detail 03/12/20 Range/Units 05:23 WBC (3.8-10.6) k/uL RBC (4.30-5.90) m/uL Hgb (13.0-17.5) gm/dL Hct (39.0-53.0) % Plt Count (150-450) k/uL Potassium (3.5-5.1) mmol/L Chloride (98-107) mmol/L Carbon Dioxide (22-30) mmol/L Glucose (74-99) mg/dL POC Glucose (mg/dL) 109 H (75-99) mg/dL Calcium (8.4-10.2) mg/dL AST (17-59) U/L Total Protein (6.3-8.2) g/dL Albumin (3.5-5.0) g/dL Crossmatch Microbiology - Last 24 Hours (Table) 03/11/20 00:10 Urine Culture - Final Urine,Catheterized 03/10/20 10:47 Blood Culture Gram Stain - Preliminary Blood Blood Culture - Preliminary Gram Neg Bacilli Assessment and Plan Plan: 1 septic shock likely secondary to gram-negative bacteria. Consider bacterial translocation from the intestine as the patient was having abdominal pain on an earlier evaluation with neutropenic colitis. The patient was discharged home on Augmentin and currently is coming in with a gram-negative septicemia. The patient is currently on IV cefepime. Awaiting final cultures and the blood. Hemodynamically improved and the patient is currently off pressors. Still IV fluids. 2 septic shock, and the patient's blood pressure has normalized and he is currently off pressors and been off pressors since 3:00 this morning. 3 pancytopenia due to chemotherapy. The white cell count of 0.3. Platelet count is at 2000. Hemoglobin is at 6.1 and the patient will need updated in a packed RBC transfusion. 4 acute myelogenous leukemia post induction chemotherapy awaiting recovery of counts prior to repeating his bone marrow evaluation 5 CVA with history of hemorrhagic stroke 6. History of spontaneous left-sided pneumothorax 7 carotid artery stenosis in the order of 50% 8 history of hypertension 9 hyperlipidemia 10 non-anion gap metabolic acidosis, improving Plan Continue IV fluid at the rate of 125 mL an hour of normal saline Continued IV cefepime in combination with vancomycin and Diflucan Pressors have been discontinued Transfuse this patient with total of 2 units of packed RBC and platelet transfusion The patient is post induction chemotherapy. The counts will likely not improved by the for another week. He'll be kept in ICU follow 24 hours. Keep the patient ICU. We'll monitor his hemodynamics. We'll continue to follow make further recommendations based on his progress. His condition is critical at this point in time.
[2020-03-12 17:09] LABS: HCT 21.2 % (39.0-53.0); MCH 31.8 pg (25.0-35.0); MCV 88.5 fL (80.0-100.0); Mean Platelet Volume 7.8; RBC 2.39 m/uL (4.30-5.90); RDW 14.3 % (11.5-15.5)
[2020-03-12 17:11] LABS: HGB 7.6 gm/dL (13.0-17.5); Platelet Count 5 k/uL (150-450); WBC 0.3 k/uL (3.8-10.6)
--- NOTE | 2020-03-12 23:10 | P.PN ---
Subjective Progress Note Date: 03/11/20 Principal diagnosis: Febrile neutropenia Patient is a 69-year-old male with a known history of AML currently undergoing chemotherapy, last chemotherapy yesterday, hypertension, hyperlipidemia, history of left-sided spontaneous pneumothorax, hemorrhagic stroke, left carotid steno sis 50%) of smoking and anxiety/depression presents to ER with complaints of fever started since morning today. Patient has been having fever chills and generalized weakness and malaise and fatigue. Denies any cough or sputum production. No nausea vomiting or diarrhea. No complaints of abdominal pain. No headache or dizziness or lightheadedness. In the ER initial vitals showed blood pressure 109/65 pulse is 103, respiration 18 and temperature 103.4 Chest x-ray showed mild strandy density right lung base without focal consolidation. EKG showed sinus tachycardia Laboratory data showed WBC count 0.4, hemoglobin 8.6, platelets 3 Sodium 134, potassium 4.0, BUN 21, creatinine 0.91, lactic acid 3.4 AST 14 ALT 22 alk phos 60 LDH 311 CRP 50.6 and procalcitonin 0.15 Urinalysis negative for infection Rapid coronavirus PCR is negative in the ER. 03/11/2020 Patient is currently in the MICU. Awake alert and oriented x3. Still requiring pressor support. Currently on antibiotics in the form of vancomycin, cefepime and fluconazole. Pulmonary, oncology is following. Laboratory data showed WBC seven 0.4, hemoglobin 7.2 and platelets 8,000. Sodium 133, potassium 3.8, bicarb is 19 and BUN 21 creatinine 1.13 calcium 6.8 albumin 2.3 Patient is also febrile with T-max 102.4. Cultures showed gram-negative bacilli. No complaints of nausea vomiting or abdominal pain or diarrhea. No dysuria or hematuria. Current medications reviewed. Objective - Vital Signs Vital signs: Vital Signs Temp 99.9 F H 03/11/20 20:34 Pulse 102 H 03/11/20 21:00 Resp 21 03/11/20 21:00 BP 122/73 03/11/20 21:00 Pulse Ox 95 03/11/20 21:00 Intake & Output 03/11/20 03/11/20 03/12/20 06:59 18:59 06:59 Intake Total 2497.975 1839.477 547 Output Total 1100 1905 340 Balance 1397.975 -65.523 207 Weight 80.2 kg Intake: IV 1700 1150 250 Cefepime 1 gm In Sodium 150 50 Chloride 0.9% 50 ml @ 12. 5 mls/hr IVPB Q12HR [id number] Rx#:[id number] Sodium Chloride 0.9% 1, 925 250 000 ml @ 125 mls/hr IV . Q8H [facility] Rx#:[id number] Sodium Chloride 0.9% 1, 1300 50 000 ml @ 130 mls/hr IV . Q7H42M [facility] Rx#:[id number] Vancomycin 1,500 mg In 250 125 Sodium Chloride 0.9% 250 ml @ 125 mls/hr IVPB Q12H [facility] Rx#:[id number] Intake, IV Titration 463.975 489.477 Amount Norepinephrine 4 mg In 463.975 489.477 Sodium Chloride 0.9% 250 ml @ 0.05 MCG/KG/MIN 15. 03 mls/hr IV .[id number] [facility] Rx#:[id number] Oral 200 Blood Product 334 297 Platelet Pheresis Pas 297 Psoralen Unit [id number] Platelet Pheresis Pas 334 Psoralen Unit [id number] Output: Urine 1100 1905 340 Other: Voiding Method Indwelling Catheter Indwelling Catheter Indwelling Catheter - Exam PHYSICAL EXAMINATION: Patient is lying in the bed comfortably, no acute distress, awake alert and oriented.. HEENT: Normocephalic. Neck is supple. Pupils reactive. Nostrils clear. Oral cavity is moist. Ears reveal no drainage. Neck reveals no JVD, carotid bruits, or thyromegaly. CHEST EXAMINATION: Trachea is central. Symmetrical expansion. Lung cassidy clear to auscultation and percussion. CARDIAC: Normal S1, S2 with no gallops. No murmurs ABDOMEN: Soft. Bowel sounds normal. No organomegaly. No abdominal bruits. Extremities: reveal no edema. No clubbing or cyanosis Neurologically awake, alert, oriented x3 with well-coordinated movements. No focal deficits noted Skin: No rash or skin lesions. Psychiatric: Coperative. Nonsuicidal Musculoskeletal: No joint swelling or deformity. Normal range of motion. - Labs CBC & Chem 7: 03/12/20 16:37 03/12/20 03:52 Labs: Abnormal Lab Results - Last 24 Hours (Table) 03/11/20 03/11/20 03/11/20 Range/Units 00:10 04:32 04:32 WBC 0.4 L* (3.8-10.6) k/uL RBC 2.26 L (4.30-5.90) m/uL Hgb 7.2 L (13.0-17.5) gm/dL Hct 20.1 L (39.0-53.0) % Plt Count 8 L* D (150-450) k/uL Sodium 133 L (137-145) mmol/L Chloride 108 H (98-107) mmol/L Carbon Dioxide 19 L (22-30) mmol/L BUN 21 H (9-20) mg/dL Calcium 6.8 L (8.4-10.2) mg/dL AST 15 L (17-59) U/L Total Protein 5.0 L (6.3-8.2) g/dL Albumin 2.3 L (3.5-5.0) g/dL Urine Protein 1+ H (Negative) Urine Blood Large H (Negative) Urine RBC >182 H (0-5) /hpf Urine WBC 34 H (0-5) /hpf Urine Mucus Rare H (None) /hpf Microbiology - Last 24 Hours (Table) 03/10/20 10:47 Blood Culture Gram Stain - Preliminary Blood Blood Culture - Preliminary Gram Neg Bacilli 03/11/20 00:10 Urine Culture - Preliminary Urine,Catheterized 03/10/20 10:47 Blood Culture - Final Blood Assessment and Plan Assessment: Febrile neutropenia Sepsis and Gram-negative bacilli septicemia Pancytopenia secondary to chemotherapy. AML currently undergoing chemotherapy last dose was on yesterday Lactic acidosis Elevated inflammatory markers DVT prophylaxis. SCDs and no heparin due to thrombocytopenia Plan: Patient will be continued broad-spectrum antibiotics in the form of vancomycin, cefepime and fluconazole. IV fluids. Follow-up culture reports. repeat LA level. Platelet transfusion to keep the platelet count greater than 10,000. Patient does not have any signs of active bleeding at this time. Monitor H&H. COVID-19 rapid PCR is negative. Influenza PCR was -ve. Continue to follow closely. Oncology and ID is on board. Time with Patient: Greater than 30
--- NOTE | 2020-03-12 23:13 | P.PN ---
Subjective Progress Note Date: 03/12/20 Principal diagnosis: Febrile neutropenia Patient is a 69-year-old male with a known history of AML currently undergoing chemotherapy, last chemotherapy yesterday, hypertension, hyperlipidemia, history of left-sided spontaneous pneumothorax, hemorrhagic stroke, left carotid steno sis 50%) of smoking and anxiety/depression presents to ER with complaints of fever started since morning today. Patient has been having fever chills and generalized weakness and malaise and fatigue. Denies any cough or sputum production. No nausea vomiting or diarrhea. No complaints of abdominal pain. No headache or dizziness or lightheadedness. In the ER initial vitals showed blood pressure 109/65 pulse is 103, respiration 18 and temperature 103.4 Chest x-ray showed mild strandy density right lung base without focal consolidation. EKG showed sinus tachycardia Laboratory data showed WBC count 0.4, hemoglobin 8.6, platelets 3 Sodium 134, potassium 4.0, BUN 21, creatinine 0.91, lactic acid 3.4 AST 14 ALT 22 alk phos 60 LDH 311 CRP 50.6 and procalcitonin 0.15 Urinalysis negative for infection Rapid coronavirus PCR is negative in the ER. 03/11/2020 Patient is currently in the MICU. Awake alert and oriented x3. Still requiring pressor support. Currently on antibiotics in the form of vancomycin, cefepime and fluconazole. Pulmonary, oncology is following. Laboratory data showed WBC seven 0.4, hemoglobin 7.2 and platelets 8,000. Sodium 133, potassium 3.8, bicarb is 19 and BUN 21 creatinine 1.13 calcium 6.8 albumin 2.3 Patient is also febrile with T-max 102.4. Cultures showed gram-negative bacilli. No complaints of nausea vomiting or abdominal pain or diarrhea. No dysuria or hematuria. 03/12/2020 Patient is currently lying in the bed comfortably. Blood cultures growing Pseudomonas species. Patient remains on antibiotics in the form of vancomycin, cefepime and Diflucan. Denied any complaints of nausea vomiting or abdominal pain or diarrhea. Patient was febrile with T-max 100.8 today. Patient is still tachycardic and tachypneic. Patient is off pressor support. Hemoglobin level dropped down to 6.1 today. Transfused with 1 unit of PRBC. WBC count is 0.3 and platelet count 2000. Potassium level is 3.1 and bicarb is 20 BUN 12 and creatinine 0.97 Current medications reviewed. Objective - Vital Signs Vital signs: Vital Signs Temp 98.7 F 03/12/20 12:00 Pulse 95 03/12/20 15:00 Resp 24 03/12/20 15:00 BP 183/84 03/12/20 15:00 Pulse Ox 98 03/12/20 14:00 Intake & Output 03/11/20 03/12/20 03/12/20 18:59 06:59 18:59 Intake Total 8021.476 4673.358 2121 Output Total 1905 1720 945 Balance -65.523 81.358 1176 Weight 83.4 kg Intake: IV 1150 1375 775 Cefepime 1 gm In Sodium 50 50 Chloride 0.9% 50 ml @ 12. 5 mls/hr IVPB Q12HR [facility] Rx#:[id number] Fluconazole in NaCl,Iso- 100 Osm 200 mg In Saline 1 100ml.bag @ 100 mls/hr IVPB DAILY@1200 [facility] Rx#: [id number] Sodium Chloride 0.9% 1, 925 1375 625 000 ml @ 125 mls/hr IV . Q8H [facility] Rx#:[id number] Sodium Chloride 0.9% 1, 50 000 ml @ 130 mls/hr IV . Q7H42M [facility] Rx#:[id number] Vancomycin 1,500 mg In 125 Sodium Chloride 0.9% 250 ml @ 125 mls/hr IVPB Q12H [facility] Rx#:[id number] Intake, IV Titration 489.477 129.358 Amount Norepinephrine 4 mg In 489.477 129.358 Sodium Chloride 0.9% 250 ml @ 0.05 MCG/KG/MIN 15. 03 mls/hr IV .[id number] [facility] Rx#:[id number] Oral 200 836 Blood Product 297 510 Platelet Irr Pheresis 2 200 Acda Unit [id number] Platelet Pheresis Pas 297 Psoralen Unit [id number] Rc Irr As1 Unit 0 310 [id number] Output: Urine 1905 1720 945 Other: Voiding Method Indwelling Catheter Indwelling Catheter Indwelling Catheter - Exam PHYSICAL EXAMINATION: Patient is lying in the bed comfortably, no acute distress, awake alert and oriented.. HEENT: Normocephalic. Neck is supple. Pupils reactive. Nostrils clear. Oral cavity is moist. Ears reveal no drainage. Neck reveals no JVD, carotid bruits, or thyromegaly. CHEST EXAMINATION: Trachea is central. Symmetrical expansion. Lung cassidy clear to auscultation and percussion. CARDIAC: Normal S1, S2 with no gallops. No murmurs ABDOMEN: Soft. Bowel sounds normal. No organomegaly. No abdominal bruits. Extremities: reveal no edema. No clubbing or cyanosis Neurologically awake, alert, oriented x3 with well-coordinated movements. No focal deficits noted Skin: No rash or skin lesions. Psychiatric: Coperative. Nonsuicidal Musculoskeletal: No joint swelling or deformity. Normal range of motion. - Labs CBC & Chem 7: 03/12/20 16:37 03/12/20 03:52 Labs: Abnormal Lab Results - Last 24 Hours (Table) 03/10/20 03/12/20 03/12/20 Range/Units 19:15 03:52 03:52 WBC 0.3 L* (3.8-10.6) k/uL RBC 1.96 L (4.30-5.90) m/uL Hgb 6.1 L* (13.0-17.5) gm/dL Hct 17.7 L* (39.0-53.0) % Plt Count 2 L* D (150-450) k/uL Potassium 3.1 L (3.5-5.1) mmol/L Chloride 110 H (98-107) mmol/L Carbon Dioxide 20 L (22-30) mmol/L Glucose 110 H (74-99) mg/dL POC Glucose (mg/dL) (75-99) mg/dL Calcium 6.8 L (8.4-10.2) mg/dL AST 14 L (17-59) U/L Total Protein 4.9 L (6.3-8.2) g/dL Albumin 2.1 L (3.5-5.0) g/dL Crossmatch See Detail 03/12/20 Range/Units 05:23 WBC (3.8-10.6) k/uL RBC (4.30-5.90) m/uL Hgb (13.0-17.5) gm/dL Hct (39.0-53.0) % Plt Count (150-450) k/uL Potassium (3.5-5.1) mmol/L Chloride (98-107) mmol/L Carbon Dioxide (22-30) mmol/L Glucose (74-99) mg/dL POC Glucose (mg/dL) 109 H (75-99) mg/dL Calcium (8.4-10.2) mg/dL AST (17-59) U/L Total Protein (6.3-8.2) g/dL Albumin (3.5-5.0) g/dL Crossmatch Microbiology - Last 24 Hours (Table) 03/11/20 00:10 Urine Culture - Final Urine,Catheterized 03/10/20 10:47 Blood Culture Gram Stain - Preliminary Blood Blood Culture - Preliminary Gram Neg Bacilli Assessment and Plan Assessment: Febrile neutropenia Sepsis and Gram-negative bacilli septicemia Pancytopenia secondary to chemotherapy. AML currently undergoing chemotherapy last dose was on yesterday Lactic acidosis Elevated inflammatory markers DVT prophylaxis. SCDs and no heparin due to thrombocytopenia Plan: Patient will be continued broad-spectrum antibiotics in the form of vancomycin, cefepime and fluconazole. IV fluids. Follow-up culture reports. repeat LA level. Platelet transfusion to keep the platelet count greater than 10,000. Patient does not have any signs of active bleeding at this time. Monitor H&H. COVID-19 rapid PCR is negative. Influenza PCR was -ve. Continue to follow closely. Oncology and ID is on board. Time with Patient: Greater than 30
[2020-03-12] MEDS: CEFEPIME 2 GM in SODIUM CHLORIDE 0.9% 100 ML IVPB SCH (23:58)
[2020-03-13] MEDS ORDERED: CEFEPIME 2 GM in SODIUM CHLORIDE 0.9% 50 ML IVPB SCH ×2
--- NOTE | 2020-03-13 00:17 | PN ---
PROGRESS NOTE DATE OF SERVICE: 03/12/2020 REASON FOR FOLLOWUP: Sepsis and Gram-negative bacteremia. INTERVAL HISTORY: The patient is currently afebrile. The patient is feeling better. Breathing comfortably. Denies having any chest pain. No shortness of breath or cough. No nausea, no vomiting. No abdominal pain. Did have some diarrhea. PHYSICAL EXAMINATION: Blood pressure 174/70 with a pulse of 95, temperature 98.8. He is 93% on room air. General description is an elderly male lying in bed in no distress. RESPIRATORY SYSTEM: Unlabored breathing, clear to auscultation anteriorly. HEART: S1, S2. Regular rate and rhythm. ABDOMEN: Soft, no tenderness. LABS: Hemoglobin 7.6, white count 0.3. Vancomycin trough 10.6. Creatinine 0.97. DIAGNOSTIC IMPRESSION AND PLAN: Patient with sepsis source is Gram-negative bacteremia, possible PICC line related as no other obvious focus of infection. We will keep the patient on cefepime dose to be adjusted to 2 grams q.8 hours. With no gram-positive infection, vancomycin will be discontinued and we will monitor his clinical course closely. Continue supportive care. MMODL / IJN: [id number] /
[2020-03-13] MEDS: SODIUM CHLORIDE 0.9% 1,000 ML IV SCH ×3 (03:07→18:50)
[2020-03-13 04:01] LABS: HCT 22.2 % (39.0-53.0); HGB 7.9 gm/dL (13.0-17.5); MCH 31.5 pg (25.0-35.0); MCHC 35.7 g/dL (31.0-37.0); MCV 88.3 fL (80.0-100.0); Mean Platelet Volume 7.7; RBC 2.51 m/uL (4.30-5.90); RDW 14.3 % (11.5-15.5)
[2020-03-13 04:02] LABS: Platelet Count 6 k/uL (150-450); WBC 0.5 k/uL (3.8-10.6)
[2020-03-13 04:14] LABS: ALT 15 U/L (4-49); AST 16 U/L (17-59); African American GFR (CKD) >90 (>60 ml/min/1.73 sqM); Albumin 2.1 g/dL (3.5-5.0); Alkaline Phosphatase 44 U/L (38-126); Anion Gap 5 mmol/L; Blood Urea Nitrogen 13 mg/dL (9-20); Calcium 6.9 mg/dL (8.4-10.2); Carbon Dioxide 19 mmol/L (22-30); Chloride 108 mmol/L (98-107); Glucose 120 mg/dL (74-99); Non-African American GFR(CKD) >90 (>60 ml/min/1.73 sqM); Potassium 3.3 mmol/L (3.5-5.1); Sodium 132 mmol/L (137-145); Total Bilirubin 1.2 mg/dL (0.2-1.3); Total Protein 4.8 g/dL (6.3-8.2)
[2020-03-13] MEDS: POTASSIUM CHLORIDE ER 20 MEQ TAB.ER PO SCH ×4 (05:13→14:22)
[2020-03-13 06:48] LABS: INR 1.1 (<1.2); Partial Thromboplastin Time 25.7 sec (22.0-30.0); Prothrombin Time 11.4 sec (9.0-12.0)
[2020-03-13] MEDS: PANTOPRAZOLE 40 MG TABLET PO SCH (06:56)
[2020-03-13] MEDS: clonazePAM 1 MG TAB PO SCH ×2 (08:07→21:46)
[2020-03-13] MEDS: ACETAMINOPHEN TAB 325 MG TAB PO PRN ×3 (08:07→21:46)
[2020-03-13] MEDS: CEFEPIME 2 GM in SODIUM CHLORIDE 0.9% 100 ML IVPB SCH ×2 (08:08→15:56)
[2020-03-13] MEDS: FLUoxetine HCL 20 MG CAP PO SCH (08:08)
[2020-03-13] MEDS: CEFEPIME 1 GM in SODIUM CHLORIDE 0.9% 50 ML IVPB SCH (12:01)
[2020-03-13] MEDS: VANCOMYCIN 1,500 MG in SODIUM CHLORIDE 0.9% 250 ML IVPB SCH (12:01)
[2020-03-13 12:20] LABS: HCT 22.4 % (39.0-53.0); HGB 8.1 gm/dL (13.0-17.5); MCH 31.7 pg (25.0-35.0); MCHC 35.9 g/dL (31.0-37.0); MCV 88.3 fL (80.0-100.0); Mean Platelet Volume 7.6; RBC 2.54 m/uL (4.30-5.90); RDW 14.3 % (11.5-15.5)
[2020-03-13 12:36] LABS: WBC 0.4 k/uL (3.8-10.6)
[2020-03-13 12:37] LABS: Platelet Count 3 k/uL (150-450)
[2020-03-13] MEDS: FLUCONAZOLE IN NACL,ISO-OSM 200 MG in SALINE 1 100ML.BAG IVPB SCH (12:55)
[2020-03-13 13:11] LABS: Rouleaux Present
--- NOTE | 2020-03-13 16:40 | P.PN ---
Subjective Progress Note Date: 03/13/20 Principal diagnosis: Septic shock likely secondary to gram-negative bacteria, pancytopenia secondary to chemotherapy, acute myelogenous leukemia Mr Chand is a pleasant white male, initially seen in consult at [facility] on 01/13/20. It come into the hospital complaining of fever, chills. Further workup with a CBC on admission showed 6% blasts with other indices essentially normal. As this finding persisted patient had additional labs done, that were negative. He then underwent a bone marrow aspiration biopsy on 01/19/20. 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 Flow cytometry actually showed about 40% blasts. 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 AML fish was negative. 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 He was referred to the [facility] and seen by Dr Kowalski. Case was d/w him. Induction chemo with Vyxeos was recommended. He was started on Vyxeos and completed infuction day 5 of cycle one on 02/24. Patient called answering service 02/25 with complaints of nausea, vomiting, diarrhea and high fevers 102-102.4. Referred to emergency, and admitted for febrile neutropenia. During his admission he had evidence neutropenic colitis which improved with bowel rest and antibiotics. Cultures remained negative. He did require transfusion support during his admission, as expected. He had also developed a significant rash postchemotherapy which improved with steroids. His discharged on 03/07/20 on oral antibiotics with Augmentin.. He did receive a blood transfusion as an outpatient post discharge. The patient came back to the emergency room yesterday with increasing fever and a T-max was 103.1. He reported some chills and generalized body aches. He denied any cough, hemoptysis, shortness of breath for baseline, urinary complaints, recurrent abdominal pain, or change in bowel habits. Labs showed significant pancytopenia. He was found to be leukopenic with a white cell count of 0.4 and hemoglobin of 8.6 and the platelet count was 3K. The patient had a chest x-ray that showed no acute abnormality. UA was negative. Stool for C. diff was negative. The COVID 19 testing was negative. Influenza screen was negative. Ferritin was elevated, LDH was at 311 and the Pronestyl level was at 0.15. The patient has a PICC line in his left upper extremity and exit site is dry clean and intact. Note that the preliminary blood cultures showing gram- negative bacillus and I stressed this patient IV cefepime 2 g every 8 hours. The patient was also given a combination of Diflucan and vancomycin. Note that the patient was initially admitted to the medical floor and subsequently was transferred to the ICU because of profound hypotension. He was given IV fluids and the patient received a total of 5 L of IV fluid. Producing adequate amount of urine output. He was started on pressors in the low-fat is running a 0.28 mg per KG per minute. At this point in terms of normal saline at the rate of 50 mL an hour. No other new complaints otherwise for now. The patient is awake and alert. No oropharyngeal candidiasis. 03/12/2020, the patient continues to be in the intensive care unit is being treated for gram-negative sepsis. The patient has been having episodes of fever with the highest temperature of 102. Blood pressures improved and the patient is currently off pressors. Denies having any respiratory distress. As mentioned earlier, the patient has a gram-negative sepsis which I think is related to neutropenic colitis. No nausea. No vomiting. No abdominal pain. He has a fecal management system in place. Stool for C. diff will be also sent. The patient has been off levo fed since 3:00 this morning. The patient has hemoglobin of 6.1. The patient will need packed RBC transfusion and this has been ordered. Platelet count of 3000 and he would also need a platelet transfusion. The patient is currently on IV fluids at the rate of 125 mL an hour. Antibiotic coverage includes a combination of cefepime vancomycin and Diflucan. Hematology oncology is on the case. ID is on the case. No altered mentation. PICC line site is dry clean and intact. Patient was reevaluated today on 03/13/20, remains in the ICU, patient had neutropenia on presentation with AML and he also had positive blood cultures with Pseudomonas, remains on cefepime and Diflucan. Patient was also noted to have pancytopenia with low platelets received 1 unit of platelets today for claudio telets of 6000. WBC count remains 0.5 today. Patient is on room air, O2 sats is 94%, chest x-ray showed bibasilar atelectasis. Patient is not requiring any pressors for the last 48 hours. He had no fever overnight. His IV fluid is 0.9 at 125 CC per hour. Overall the patient is showing clinical improvement. Again his blood culture from 03/10 showed pseudomonas aeruginosa follow-up blood cult ures have been negative since Objective - Vital Signs Vital signs: Vital Signs Temp 101.2 F H 03/13/20 16:00 Pulse 93 03/13/20 16:00 Resp 22 03/13/20 16:00 BP 140/85 03/13/20 16:00 Pulse Ox 96 03/13/20 16:00 Intake & Output 03/12/20 03/13/20 03/13/20 18:59 06:59 18:59 Intake Total 2521 1656 325 Output Total 1145 1382 925 Balance 1376 274 -600 Weight 81.6 kg Intake: IV 1075 1375 275 Cefepime 1 gm In Sodium 50 Chloride 0.9% 50 ml @ 12. 5 mls/hr IVPB Q12HR [facility] Rx#:[id number] Cefepime 1 gm In Sodium 50 50 Chloride 0.9% 50 ml @ 12. 5 mls/hr IVPB Q8HR [facility] Rx #:[id number] Fluconazole in NaCl,Iso- 100 100 Osm 200 mg In Saline 1 100ml.bag @ 100 mls/hr IVPB DAILY@1200 [facility] Rx#: [id number] Sodium Chloride 0.9% 1, 750 1375 125 000 ml @ 125 mls/hr IV . Q8H [facility] Rx#:[id number] Vancomycin 1,500 mg In 125 Sodium Chloride 0.9% 250 ml @ 125 mls/hr IVPB Q12H [facility] Rx#:[id number] Intake, IV Titration 5 Amount Fluconazole in NaCl,Iso- 5 Osm 200 mg In Saline 1 100ml.bag @ 100 mls/hr IVPB DAILY@1200 [facility] Rx#: [id number] Oral 936 50 Blood Product 510 276 Platelet Irr Pheresis 2 200 Acda Unit [id number] Platelet Pheresis Pas 276 Psoralen Unit [id number] Rc Irr As1 Unit 310 [id number] Output: Urine 1145 1382 925 Other: Voiding Method Indwelling Catheter Indwelling Catheter Indwelling Catheter - Exam Patient is lying in the bed comfortably, no acute distress, awake alert and oriented.. HEENT: Normocephalic. Neck is supple. Pupils reactive. Nostrils clear. Oral cavity is moist. Ears reveal no drainage. Neck reveals no JVD, carotid bruits, or thyromegaly. CHEST EXAMINATION: Trachea is central. Symmetrical expansion. Lung cassidy clear to auscultation and percussion. CARDIAC: Normal S1, S2 with no gallops. No murmurs ABDOMEN: Soft. Bowel sounds normal. No organomegaly. No abdominal bruits. Extremities: reveal no edema. No clubbing or cyanosis Neurologically awake, alert, oriented x3 with well-coordinated movements. No focal deficits noted Skin: No rash or skin lesions. Psychiatric: Coperative. Nonsuicidal Musculoskeletal: No joint swelling or deformity. Normal range of motion. - Labs CBC & Chem 7: 03/13/20 11:48 03/13/20 11:48 Labs: Abnormal Lab Results - Last 24 Hours (Table) 03/12/20 03/13/20 03/13/20 Range/Units 16:37 03:15 03:15 WBC 0.3 L* 0.5 L* (3.8-10.6) k/uL RBC 2.39 L 2.51 L (4.30-5.90) m/uL Hgb 7.6 L D 7.9 L (13.0-17.5) gm/dL Hct 21.2 L 22.2 L (39.0-53.0) % Plt Count 5 L* D 6 L* (150-450) k/uL Fibrinogen (200-500) mg/dL Sodium 132 L (137-145) mmol/L Potassium 3.3 L (3.5-5.1) mmol/L Chloride 108 H (98-107) mmol/L Carbon Dioxide 19 L (22-30) mmol/L Glucose 120 H (74-99) mg/dL Calcium 6.9 L (8.4-10.2) mg/dL AST 16 L (17-59) U/L Total Protein 4.8 L (6.3-8.2) g/dL Albumin 2.1 L (3.5-5.0) g/dL 03/13/20 03/13/20 03/13/20 Range/Units 05:26 11:48 11:48 WBC 0.4 L* (3.8-10.6) k/uL RBC 2.54 L (4.30-5.90) m/uL Hgb 8.1 L (13.0-17.5) gm/dL Hct 22.4 L (39.0-53.0) % Plt Count 3 L* (150-450) k/uL Fibrinogen 801 H (200-500) mg/dL Sodium (137-145) mmol/L Potassium 3.4 L (3.5-5.1) mmol/L Chloride (98-107) mmol/L Carbon Dioxide (22-30) mmol/L Glucose (74-99) mg/dL Calcium (8.4-10.2) mg/dL AST (17-59) U/L Total Protein (6.3-8.2) g/dL Albumin (3.5-5.0) g/dL Microbiology - Last 24 Hours (Table) 03/12/20 03:52 Blood Culture - Preliminary Blood No Growth after 24 hours 03/10/20 10:47 Blood Culture Gram Stain - Final Blood Blood Culture - Final Pseudomonas aeruginosa 03/11/20 00:10 Urine Culture - Final Urine,Catheterized Assessment and Plan Assessment: Impression: Septic shock secondary to Pseudomonas bacteremia Pancytopenia secondary to chemotherapy Acute myelogenous leukemia post induction chemotherapy CVA with history of hemorrhagic stroke. History of left sided spontaneous pneumothorax. Dyslipidemia. Non-anion gap metabolic acidosis on presentation, resolved Recommendation: Continue antibiotics. Continue IV fluids. Continue to monitor CBC on a daily basis and addressed accordingly. Consider transferring the patient to oncology today. Patient is presently on room air, and he is hemodynamically stable. We'll continue to follow. Time with Patient: Less than 30
--- NOTE | 2020-03-13 17:52 | P.PN ---
Subjective Progress Note Date: 03/13/20 Principal diagnosis: in follow-up today patient is seen in the intensive care unit, he is denying any knowledge of bleeding, he is weak, denies fever, nausea, difficulty in breathi ng, he lacks energy and gets short of breath with exertion. Objective - Vital Signs Vital signs: Vital Signs Temp 101.2 F H 03/13/20 16:00 Pulse 93 03/13/20 16:00 Resp 22 03/13/20 16:00 BP 140/85 03/13/20 16:00 Pulse Ox 96 03/13/20 16:00 Intake & Output 03/12/20 03/13/20 03/13/20 18:59 06:59 18:59 Intake Total 2521 1656 325 Output Total 1145 1382 925 Balance 1376 274 -600 Weight 81.6 kg Intake: IV 1075 1375 275 Cefepime 1 gm In Sodium 50 Chloride 0.9% 50 ml @ 12. 5 mls/hr IVPB Q12HR [facility] Rx#:[id number] Cefepime 1 gm In Sodium 50 50 Chloride 0.9% 50 ml @ 12. 5 mls/hr IVPB Q8HR [facility] Rx #:[id number] Fluconazole in NaCl,Iso- 100 100 Osm 200 mg In Saline 1 100ml.bag @ 100 mls/hr IVPB DAILY@1200 [facility] Rx#: [id number] Sodium Chloride 0.9% 1, 750 1375 125 000 ml @ 125 mls/hr IV . Q8H [facility] Rx#:[id number] Vancomycin 1,500 mg In 125 Sodium Chloride 0.9% 250 ml @ 125 mls/hr IVPB Q12H [facility] Rx#:[id number] Intake, IV Titration 5 Amount Fluconazole in NaCl,Iso- 5 Osm 200 mg In Saline 1 100ml.bag @ 100 mls/hr IVPB DAILY@1200 [facility] Rx#: [id number] Oral 936 50 Blood Product 510 276 Platelet Irr Pheresis 2 200 Acda Unit [id number] Platelet Pheresis Pas 276 Psoralen Unit [id number] Rc Irr As1 Unit 310 [id number] Output: Urine 1145 1382 925 Other: Voiding Method Indwelling Catheter Indwelling Catheter Indwelling Catheter - Constitutional General appearance: Present: average body habitus, cooperative, no acute distress - EENT EENT Comment(s): dry mucus membranes, no wet purpura Eyes: Present: anicteric sclerae, EOMI ENT: Present: hearing grossly normal - Respiratory Respiratory: bilateral: CTA - Cardiovascular Rhythm: regular Heart sounds: normal: S1, S2 Abnormal Heart Sounds: Present: systolic murmur - Peripheral edema leg Peripheral Edema: bilateral: Trace - Gastrointestinal General gastrointestinal: Present: hyperactive bowel sounds, soft - Neurologic Neurologic: Present: CNII-XII intact - Musculoskeletal Musculoskeletal: Present: generalized weakness - Psychiatric Psychiatric: Present: A&O x's 3, appropriate affect, intact judgment & insight - Labs CBC & Chem 7: 03/13/20 11:48 03/13/20 11:48 Labs: Abnormal Lab Results - Last 24 Hours (Table) 03/13/20 03/13/20 03/13/20 Range/Units 03:15 03:15 05:26 WBC 0.5 L* (3.8-10.6) k/uL RBC 2.51 L (4.30-5.90) m/uL Hgb 7.9 L (13.0-17.5) gm/dL Hct 22.2 L (39.0-53.0) % Plt Count 6 L* (150-450) k/uL Fibrinogen 801 H (200-500) mg/dL Sodium 132 L (137-145) mmol/L Potassium 3.3 L (3.5-5.1) mmol/L Chloride 108 H (98-107) mmol/L Carbon Dioxide 19 L (22-30) mmol/L Glucose 120 H (74-99) mg/dL Calcium 6.9 L (8.4-10.2) mg/dL AST 16 L (17-59) U/L Total Protein 4.8 L (6.3-8.2) g/dL Albumin 2.1 L (3.5-5.0) g/dL 03/13/20 03/13/20 Range/Units 11:48 11:48 WBC 0.4 L* (3.8-10.6) k/uL RBC 2.54 L (4.30-5.90) m/uL Hgb 8.1 L (13.0-17.5) gm/dL Hct 22.4 L (39.0-53.0) % Plt Count 3 L* (150-450) k/uL Fibrinogen (200-500) mg/dL Sodium (137-145) mmol/L Potassium 3.4 L (3.5-5.1) mmol/L Chloride (98-107) mmol/L Carbon Dioxide (22-30) mmol/L Glucose (74-99) mg/dL Calcium (8.4-10.2) mg/dL AST (17-59) U/L Total Protein (6.3-8.2) g/dL Albumin (3.5-5.0) g/dL Microbiology - Last 24 Hours (Table) 03/12/20 03:52 Blood Culture - Preliminary Blood No Growth after 24 hours 03/10/20 10:47 Blood Culture Gram Stain - Final Blood Blood Culture - Final Pseudomonas aeruginosa 03/11/20 00:10 Urine Culture - Final Urine,Catheterized Assessment and Plan (1) Pseudomonal bacteremia Narrative/Plan: infectious Disease following. Antibiotics ordered. Current Visit: Yes Status: Acute Priority: High Code(s): R78.81 - BACTEREMIA; B96.5 - PSEUDOMONAS (MALLEI) CAUSING DISEASES CLASSD ELSR SNOMED Code(s): 817848807929 (2) Acute myeloid leukemia Narrative/Plan: Patient completed first cycle of treatment early in February. Pending follow-up bone marrow biopsy to confirm remission. Need to wait until bacteremia is re solved or patient is significantly more stable. Current Visit: Yes Status: Acute Priority: High Code(s): C92.00 - ACUTE MYELOBLASTIC LEUKEMIA, NOT HAVING ACHIEVED REMISSION SNOMED Code(s): 27133152 (3) Pancytopenia due to antineoplastic chemotherapy Narrative/Plan: Transfuse to keep hemoglobin 7 or higher. Hemoglobin 7.9 today, no transfusion needed Platelets will continue to be transfused if symptomatic or less than 10,000. Patient did receive a unit of single donor platelets today. Recheck CBC in the a.m. WBC 0.5. No G-CSF as patient is not a confirmed remission. Pancytopenia is also being exacerbated by acute bacteremia. Patient is on antibiotics and being followed by ID Current Visit: Yes Status: Acute Priority: High Code(s): D61.810 - ANTINEOPLASTIC CHEMOTHERAPY INDUCED PANCYTOPENIA; T45.1X5A - ADVERSE EFFECT OF ANTINEOPLASTIC AND IMMUNOSUP DRUGS, INIT SNOMED Code(s): 833789946268806
--- NOTE | 2020-03-13 20:18 | P.PN ---
Subjective Patient is a 69-year-old male with a known history of AML currently undergoing chemotherapy, last chemotherapy yesterday, hypertension, hyperlipidemia, history of left-sided spontaneous pneumothorax, hemorrhagic stroke, left carotid stenosis 50%) of smoking and anxiety/depression presents to ER with complaints of fever started since morning today. Patient has been having fever chills and generalized weakness and malaise and fatigue. Denies any cough or sputum production. No nausea vomiting or diarrhea. No complaints of abdominal pain. No headache or dizziness or lightheadedness. In the ER initial vitals showed blood pressure 109/65 pulse is 103, respiration 18 and temperature 103.4 Chest x-ray showed mild strandy density right lung base without focal consolidation. EKG showed sinus tachycardia Laboratory data showed WBC count 0.4, hemoglobin 8.6, platelets 3 Sodium 134, potassium 4.0, BUN 21, creatinine 0.91, lactic acid 3.4 AST 14 ALT 22 alk phos 60 LDH 311 CRP 50.6 and procalcitonin 0.15 Urinalysis negative for infection Rapid coronavirus PCR is negative in the ER. 03/11/2020 Patient is currently in the MICU. Awake alert and oriented x3. Still requiring pressor support. Currently on antibiotics in the form of vancomycin, cefepime and fluconazole. Pulmonary, oncology is following. Laboratory data showed WBC seven 0.4, hemoglobin 7.2 and platelets 8,000. Sodium 133, potassium 3.8, bicarb is 19 and BUN 21 creatinine 1.13 calcium 6.8 albumin 2.3 Patient is also febrile with T-max 102.4. Cultures showed gram-negative bacilli. No complaints of nausea vomiting or abdominal pain or diarrhea. No dysuria or hematuria. 03/12/2020 Patient is currently lying in the bed comfortably. Blood cultures growing Pseudomonas species. Patient remains on antibiotics in the form of vancomycin, cefepime and Diflucan. Denied any complaints of nausea vomiting or abdominal pain or diarrhea. Patient was febrile with T-max 100.8 today. Patient is still tachycardic and tachypneic. Patient is off pressor support. Hemoglobin level dropped down to 6.1 today. Transfused with 1 unit of PRBC. WBC count is 0.3 and platelet count 2000. Potassium level is 3.1 and bicarb is 20 BUN 12 and creatinine 0.97 Subjective: This is the first name taking care of the patient 03/13/2020 This is a pleasant 69 years old male with AML on chemotherapy presents with neutropenic fever and found to have sepsis secondary to Pseudomonas bacteremia and septic shock needed pressors. Also he has pancytopenia secondary to chemotherapy, platelet count was 6K today anticipated 20 red blood transfusion, pulmonary and oncology team on the case.Patient is fully awake and oriented, however he feels generally weak with deconditioning Antibiotics in the form of cefepime and Diflucan. Also he is on normal saline at 1 25 mL/h Review of systems CONSTITUTIONAL: No fever, no malaise, no fatigue. HEENT: No recent visual problems or hearing problems. Denied any sore throat. CARDIOVASCULAR: No orthopnea, PND, no palpitations, no syncope. PULMONARY: No shortness of breath, no cough, no hemoptysis. GASTROINTESTINAL: No diarrhea, no nausea, no vomiting, no abdominal pain. Normoactive bowel sounds. Active Medications Generic Name Dose Route Start Last Admin Trade Name Freq PRN Reason Stop Dose Admin Acetaminophen 650 mg 03/10/20 15:16 03/13/20 16:09 Acetaminophen Tab 325 Mg Tab PO 650 mg Q4H PRN Administration Pain or Fever > 100.5 Clonazepam 1 mg 03/12/20 12:30 03/13/20 08:07 Clonazepam 1 Mg Tab PO 1 mg BID [facility] Administration Fluoxetine HCl 40 mg 03/11/20 09:00 03/13/20 08:08 Fluoxetine Hcl 20 Mg Cap PO 40 mg DAILY [facility] Administration Fluconazole/Sodium Chloride 100 mls @ 100 mls/hr 03/11/20 12:00 03/13/20 12:55 200 mg/ IV Solution IVPB 100 mls/hr DAILY@1200 [facility] Administration Norepinephrine Bitartrate 4 mg 254 mls @ 15.03 mls/hr 03/10/20 21:30 03/12/20 04:07 / Sodium Chloride IV 0 mcg/kg/min .[id number] [facility] 0 mls/hr Titration Protocol 0.05 MCG/KG/MIN Sodium Chloride 1,000 mls @ 125 mls/hr 03/11/20 10:45 03/13/20 18:50 Saline 0.9% IV Not Given .Q8H [facility] Cefepime HCl 2 gm/ Sodium 100 mls @ 25 mls/hr 03/13/20 00:00 03/13/20 15:56 Chloride IVPB 25 mls/hr Q8HR [facility] Administration Miscellaneous Information 1 each 03/12/20 05:41 Potassium Replacement Protocol 1 Each Misc MISCELLANE DAILY PRN Per Protocol Protocol Naloxone HCl 0.2 mg 03/10/20 13:59 Naloxone 0.4 Mg/Ml 1 Ml Vial IV Q2M PRN Opioid Reversal Pantoprazole Sodium 40 mg 03/11/20 07:30 03/13/20 06:56 Pantoprazole 40 Mg Tablet PO 40 mg [id number] [facility] Administration Sodium Bicarbonate 5 ml 03/13/20 20:00 Salt And Soda Mouthwash 1,000 Ml PO 5XD [facility] [place] Objective - Vital Signs Vital signs: Vital Signs Temp 101.2 F H 03/13/20 16:00 Pulse 93 03/13/20 16:00 Resp 22 03/13/20 16:00 BP 140/85 03/13/20 16:00 Pulse Ox 96 03/13/20 16:00 Intake & Output 03/12/20 03/13/20 03/13/20 18:59 06:59 18:59 Intake Total 2521 1656 325 Output Total 1145 1382 925 Balance 1376 274 -600 Weight 81.6 kg Intake: IV 1075 1375 275 Cefepime 1 gm In Sodium 50 Chloride 0.9% 50 ml @ 12. 5 mls/hr IVPB Q12HR [facility] [place] Rx#:[id number] Cefepime 1 gm In Sodium 50 50 Chloride 0.9% 50 ml @ 12. 5 mls/hr IVPB Q8HR [facility] [place] Rx #:[id number] Fluconazole in NaCl,Iso- 100 100 Osm 200 mg In Saline 1 100ml.bag @ 100 mls/hr IVPB DAILY@1200 [facility] [place] Rx#: [id number] Sodium Chloride 0.9% 1, 750 1375 125 000 ml @ 125 mls/hr IV . Q8H [facility] [place] Rx#:[id number] Vancomycin 1,500 mg In 125 Sodium Chloride 0.9% 250 ml @ 125 mls/hr IVPB Q12H [facility] [place] Rx#:[id number] Intake, IV Titration 5 Amount Fluconazole in NaCl,Iso- 5 Osm 200 mg In Saline 1 100ml.bag @ 100 mls/hr IVPB DAILY@1200 [facility] [place] Rx#: [id number] Oral 936 50 Blood Product 510 276 Platelet Irr Pheresis 2 200 Acda Unit [id number] Platelet Pheresis Pas 276 Psoralen Unit [id number] Rc Irr As1 Unit 310 [id number] Output: Urine 1145 1382 925 Other: Voiding Method Indwelling Catheter Indwelling Catheter Indwelling Catheter - Exam -GENERAL: The patient is alert and oriented x3, not in any acute distress. Generalized weakness HEENT: Pupils are round and equally reacting to light. EOMI. No scleral icterus. No conjunctival pallor. Normocephalic, atraumatic. No pharyngeal erythema. No thyromegaly. CARDIOVASCULAR: S1 and S2 present. No murmurs, rubs, or gallops. PULMONARY: Chest is clear to auscultation, no wheezing or crackles. ABDOMEN: Soft, nontender, nondistended, normoactive bowel sounds. No palpable organomegaly. MUSCULOSKELETAL: No joint swelling or deformity. EXTREMITIES: No cyanosis, clubbing, or pedal edema. NEUROLOGICAL: Gross neurological examination did not reveal any focal deficits. SKIN: No rashes. no petechiae. - Labs CBC & Chem 7: 03/13/20 11:48 03/13/20 11:48 Labs: Abnormal Lab Results - Last 24 Hours (Table) 03/13/20 03/13/20 03/13/20 Range/Units 03:15 03:15 05:26 WBC 0.5 L* (3.8-10.6) k/uL RBC 2.51 L (4.30-5.90) m/uL Hgb 7.9 L (13.0-17.5) gm/dL Hct 22.2 L (39.0-53.0) % Plt Count 6 L* (150-450) k/uL Fibrinogen 801 H (200-500) mg/dL Sodium 132 L (137-145) mmol/L Potassium 3.3 L (3.5-5.1) mmol/L Chloride 108 H (98-107) mmol/L Carbon Dioxide 19 L (22-30) mmol/L Glucose 120 H (74-99) mg/dL Calcium 6.9 L (8.4-10.2) mg/dL AST 16 L (17-59) U/L Total Protein 4.8 L (6.3-8.2) g/dL Albumin 2.1 L (3.5-5.0) g/dL 03/13/20 03/13/20 Range/Units 11:48 11:48 WBC 0.4 L* (3.8-10.6) k/uL RBC 2.54 L (4.30-5.90) m/uL Hgb 8.1 L (13.0-17.5) gm/dL Hct 22.4 L (39.0-53.0) % Plt Count 3 L* (150-450) k/uL Fibrinogen (200-500) mg/dL Sodium (137-145) mmol/L Potassium 3.4 L (3.5-5.1) mmol/L Chloride (98-107) mmol/L Carbon Dioxide (22-30) mmol/L Glucose (74-99) mg/dL Calcium (8.4-10.2) mg/dL AST (17-59) U/L Total Protein (6.3-8.2) g/dL Albumin (3.5-5.0) g/dL Microbiology - Last 24 Hours (Table) 03/12/20 03:52 Blood Culture - Preliminary Blood No Growth after 24 hours 03/10/20 10:47 Blood Culture Gram Stain - Final Blood Blood Culture - Final Pseudomonas aeruginosa 03/11/20 00:10 Urine Culture - Final Urine,Catheterized Assessment and Plan Assessment: Septic shock secondary to Pseudomonas bacteremia Pancytopenia secondary to chemotherapy. AML currently undergoing chemotherapy history of hemorrhagic stroke Plan: This is a pleasant 69 years old male who presents with septic shock secondary to Pseudomonas bacteremia. Continue with cefepime. Also is on Diflucan. Continue with gentle hydration. Follow-up recommendation by infectious disease and pulmonary/culture team. Also oncology on the case for his AML Labs and medication were reviewed.. Continue same treatment. Continue with symptomatic treatment. Resume home medication. Monitor lytes and vitals. DVT and GI prophylaxis. Further recommendationsas per clinical course of the patien t DVT prophylaxis: no heparin in view of his thrombocytopenia GI Prophylaxis: Ppi Prognosis is guarded
[2020-03-13] MEDS: SALT AND SODA MOUTHWASH 1,000 ML PO SCH (21:47)
--- NOTE | 2020-03-13 23:23 | PN ---
PROGRESS NOTE DATE OF SERVICE: 03/13/2020 REASON FOR FOLLOWUP: Gram-negative bacteremia. INTERVAL HISTORY: The patient is currently afebrile. The patient is feeling better, breathing comfortably. The patient denies having any chest pain or shortness of breath or cough. No nausea, vomiting, abdominal pain or diarrhea. PHYSICAL EXAMINATION: Blood pressure 140/85 with a pulse of 100, temperature of 98, She is 96% on room air. General description is an elderly male lying in bed in no distress. RESPIRATORY SYSTEM: Unlabored breathing with decreased breath sounds at the base. No wheeze. HEART: S1, S2. Regular rate and rhythm. ABDOMEN: Soft. No tenderness. LABS: Hemoglobin 8.2, white count 0.4. DIAGNOSTIC IMPRESSION AND PLAN: Patient with Pseudomonas aeruginosa bacteremia concern possibly PICC line. Blood cultures will be repeated from the PICC line peripherally. Continue with cefepime 2 grams q.8 hours and monitor his clinical course closely. Continue supportive care. MMODL / IJN: [id number] /
[2020-03-14] MEDS: CEFEPIME 2 GM in SODIUM CHLORIDE 0.9% 100 ML IVPB SCH ×4 (00:07→23:48)
[2020-03-14] MEDS: SALT AND SODA MOUTHWASH 1,000 ML PO SCH ×6 (00:08→23:45)
[2020-03-14] MEDS: SODIUM CHLORIDE 0.9% 1,000 ML IV SCH ×3 (02:25→21:06)
[2020-03-14 06:04] LABS: African American GFR (CKD) >90 (>60 ml/min/1.73 sqM); Non-African American GFR(CKD) >90 (>60 ml/min/1.73 sqM)
[2020-03-14 06:08] LABS: HCT 22.6 % (39.0-53.0); HGB 7.9 gm/dL (13.0-17.5); MCHC 34.7 g/dL (31.0-37.0); MCV 89.3 fL (80.0-100.0); Mean Platelet Volume 7.6; RBC 2.53 m/uL (4.30-5.90); RDW 14.4 % (11.5-15.5)
[2020-03-14 06:31] LABS: Platelet Count 4 k/uL (150-450); WBC 0.6 k/uL (3.8-10.6)
[2020-03-14] MEDS: PANTOPRAZOLE 40 MG TABLET PO SCH (08:13)
[2020-03-14] MEDS: clonazePAM 1 MG TAB PO SCH ×2 (08:13→21:06)
[2020-03-14] MEDS: FLUoxetine HCL 20 MG CAP PO SCH (08:13)
[2020-03-14] MEDS: ACETAMINOPHEN TAB 325 MG TAB PO PRN (10:18)
[2020-03-14] MEDS: NOREPINEPHRINE 4 MG in SODIUM CHLORIDE 0.9% 250 ML IV SCH (11:51)
[2020-03-14] MEDS ORDERED: DIPHENOX-ATROP 2.5-0.025 MG 1 EACH TAB PO STA (12:26)
--- NOTE | 2020-03-14 12:32 | P.PN ---
Subjective Progress Note Date: 03/14/20 Principal diagnosis: in follow-up today patient is seen in the intensive care unit, he is denying any knowledge of bleeding, he is weak, denies fever, nausea, difficulty in breathi ng, he lacks energy and gets short of breath with exertion. In follow-up today patient looks tired but overall he feels okay, he really would like the rectal tube removed, stool is still very watery. Had fever of 101.2 Fahrenheit. In general he is weak but, he is tolerating oral intake, no oral irritation, nausea, vomiting, mildly short of breath with exertion, no unusual cough or sputum, abdominal pain or cramping, no reports of pain right now Objective - Vital Signs Vital signs: Vital Signs Temp 98.7 F 03/14/20 11:40 Pulse 89 03/14/20 11:40 Resp 18 03/14/20 11:40 BP 114/67 03/14/20 11:40 Pulse Ox 96 03/14/20 11:40 Intake & Output 03/13/20 03/14/20 03/14/20 18:59 06:59 18:59 Intake Total 325 2000 820 Output Total 925 1525 Balance -600 475 820 Intake: IV 275 1000 Cefepime 1 gm In Sodium 50 Chloride 0.9% 50 ml @ 12. 5 mls/hr IVPB Q8HR [facility] Rx #:[id number] Fluconazole in NaCl,Iso- 100 Osm 200 mg In Saline 1 100ml.bag @ 100 mls/hr IVPB DAILY@1200 [facility] Rx#: [id number] Sodium Chloride 0.9% 1, 125 1000 000 ml @ 125 mls/hr IV . Q8H [facility] Rx#:[id number] Intake, IV Titration 1000 Amount Sodium Chloride 0.9% 1, 1000 000 ml @ 125 mls/hr IV . Q8H [facility] Rx#:[id number] Oral 50 500 Blood Product 320 Platelet Irr Pheresis 2 320 Acda Unit [id number] Output: Urine 925 925 Stool 600 Other: Voiding Method Indwelling Catheter Indwelling Catheter Indwelling Catheter # Voids 2 - Constitutional General appearance: Present: average body habitus, cooperative, no acute distress - EENT Eyes: Present: anicteric sclerae, EOMI ENT: Present: hearing grossly normal - Respiratory Respiratory: bilateral: CTA - Cardiovascular Rhythm: regular Heart sounds: normal: S1, S2 Abnormal Heart Sounds: Absent: systolic murmur, diastolic murmur, rub, S3 Gallop, S4 Gallop, click, other - Peripheral edema leg Peripheral Edema: bilateral: Trace - Gastrointestinal General gastrointestinal: Present: normal bowel sounds, soft - Neurologic Neurologic: Present: CNII-XII intact - Musculoskeletal Musculoskeletal: Present: generalized weakness, strength equal bilaterally - Psychiatric Psychiatric: Present: A&O x's 3, appropriate affect, intact judgment & insight - Labs CBC & Chem 7: 03/14/20 05:01 03/14/20 05:01 Labs: Abnormal Lab Results - Last 24 Hours (Table) 03/13/20 03/13/20 03/14/20 Range/Units 11:48 11:48 05:01 WBC 0.4 L* 0.6 L* (3.8-10.6) k/uL RBC 2.54 L 2.53 L (4.30-5.90) m/uL Hgb 8.1 L 7.9 L (13.0-17.5) gm/dL Hct 22.4 L 22.6 L (39.0-53.0) % Plt Count 3 L* 4 L* (150-450) k/uL Potassium 3.4 L (3.5-5.1) mmol/L Microbiology - Last 24 Hours (Table) 03/12/20 03:52 Blood Culture - Preliminary Blood No Growth after 48 hours Assessment and Plan (1) Pseudomonal bacteremia Narrative/Plan: Infectious Disease following. Dr. Rees discussing case with ID. Antibiotics ordered. Current Visit: Yes Status: Acute Priority: High Code(s): R78.81 - BACTEREMIA; B96.5 - PSEUDOMONAS (MALLEI) CAUSING DISEASES CLASSD ELSWHR SNOMED Code(s): 816679889312 (2) Acute myeloid leukemia Narrative/Plan: Patient completed first cycle of treatment early in February. Pending follow-up bone marrow biopsy to confirm remission. Need to wait until bacteremia is resolved or patient is significantly more stable. Current Visit: Yes Status: Acute Priority: High Code(s): C92.00 - ACUTE MYELOBLASTIC LEUKEMIA, NOT HAVING ACHIEVED REMISSION SNOMED Code(s): 54412000 (3) Pancytopenia due to antineoplastic chemotherapy Narrative/Plan: Transfuse to keep hemoglobin 7 or higher. Hemoglobin 7.9 today, no transfusion needed Platelets will continue to be transfused if symptomatic or less than 10,000. Plt 4000, 1 unit SDP, irradiated. WBC 0.6. No G-CSF as patient is not a confirmed remission. Pancytopenia is also being exacerbated by acute bacteremia. Patient is on antibiotics and being followed by ID Current Visit: Yes Status: Acute Priority: High Code(s): D61.810 - ANTINEOPLASTIC CHEMOTHERAPY INDUCED PANCYTOPENIA; T45.1X5A - ADVERSE EFFECT OF ANTINEOPLASTIC AND IMMUNOSUP DRUGS, INIT SNOMED Code(s): 883476110561246 Plan: Attests: I have performed H&P and developed impression and plan of care of patient, discussed with dictator. I agree with dictated note, documented as a scribe.
[2020-03-14] MEDS: IOPAMIDOL CONTRAST (ORAL USE) VIAL PO PRN ×2 (12:42→13:41)
--- NOTE | 2020-03-14 13:16 | P.PN ---
Subjective Patient is a 69-year-old male with a known history of AML currently undergoing chemotherapy, last chemotherapy yesterday, hypertension, hyperlipidemia, history of left-sided spontaneous pneumothorax, hemorrhagic stroke, left carotid stenosis 50%) of smoking and anxiety/depression presents to ER with complaints of fever started since morning today. Patient has been having fever chills and generalized weakness and malaise and fatigue. Denies any cough or sputum production. No nausea vomiting or diarrhea. No complaints of abdominal pain. No headache or dizziness or lightheadedness. In the ER initial vitals showed blood pressure 109/65 pulse is 103, respiration 18 and temperature 103.4 Chest x-ray showed mild strandy density right lung base without focal consolidation. EKG showed sinus tachycardia Laboratory data showed WBC count 0.4, hemoglobin 8.6, platelets 3 Sodium 134, potassium 4.0, BUN 21, creatinine 0.91, lactic acid 3.4 AST 14 ALT 22 alk phos 60 LDH 311 CRP 50.6 and procalcitonin 0.15 Urinalysis negative for infection Rapid coronavirus PCR is negative in the ER. 03/11/2020 Patient is currently in the MICU. Awake alert and oriented x3. Still requiring pressor support. Currently on antibiotics in the form of vancomycin, cefepime and fluconazole. Pulmonary, oncology is following. Laboratory data showed WBC seven 0.4, hemoglobin 7.2 and platelets 8,000. Sodium 133, potassium 3.8, bicarb is 19 and BUN 21 creatinine 1.13 calcium 6.8 albumin 2.3 Patient is also febrile with T-max 102.4. Cultures showed gram-negative bacilli. No complaints of nausea vomiting or abdominal pain or diarrhea. No dysuria or hematuria. 03/12/2020 Patient is currently lying in the bed comfortably. Blood cultures growing Pseudomonas species. Patient remains on antibiotics in the form of vancomycin, cefepime and Diflucan. Denied any complaints of nausea vomiting or abdominal pain or diarrhea. Patient was febrile with T-max 100.8 today. Patient is still tachycardic and tachypneic. Patient is off pressor support. Hemoglobin level dropped down to 6.1 today. Transfused with 1 unit of PRBC. WBC count is 0.3 and platelet count 2000. Potassium level is 3.1 and bicarb is 20 BUN 12 and creatinine 0.97 Subjective: 03/13/2020 This is a pleasant 69 years old male with AML on chemotherapy presents with neutropenic fever and found to have sepsis secondary to Pseudomonas bacteremia and septic shock needed pressors. Also he has pancytopenia secondary to chemotherapy, platelet count was 6K today anticipated 20 red blood transfusion, pulmonary and oncology team on the case.Patient is fully awake and oriented, however he feels generally weak with deconditioning Antibiotics in the form of cefepime and Diflucan. Also he is on normal saline at 1 25 mL/h 03/14/2020 Patient was transferred to the general medical floor today, he feels generally weak and tired, he had little diarrhea about 2-3 times today, there was no blood in his stool or anywhere else as per patient. All 1.6 today. AV first of Vitas looks stable. He has persistent pancytopenia male with neutropeniaand leukopenia of 0.6K, thrombocytopenia with platelet for K, he got another unit of platelet transfusion today. Hemoglobin is low and stable at 7.9. Creatinine is normal at 0.7. He remains on cefepime intravenously as well as Diflucan. Normal saline at 75 mL/h Objective - Vital Signs Vital signs: Vital Signs Temp 98.7 F 03/14/20 11:40 Pulse 89 03/14/20 11:40 Resp 18 03/14/20 11:40 BP 114/67 03/14/20 11:40 Pulse Ox 96 03/14/20 11:40 Intake & Output 03/13/20 03/14/20 03/14/20 18:59 06:59 18:59 Intake Total 325 2000 820 Output Total 925 1525 Balance -600 475 820 Intake: IV 275 1000 Cefepime 1 gm In Sodium 50 Chloride 0.9% 50 ml @ 12. 5 mls/hr IVPB Q8HR [facility] Rx #:[id number] Fluconazole in NaCl,Iso- 100 Osm 200 mg In Saline 1 100ml.bag @ 100 mls/hr IVPB DAILY@1200 [facility] Rx#: [id number] Sodium Chloride 0.9% 1, 125 1000 000 ml @ 125 mls/hr IV . Q8H [facility] Rx#:[id number] Intake, IV Titration 1000 Amount Sodium Chloride 0.9% 1, 1000 000 ml @ 125 mls/hr IV . Q8H [facility] Rx#:[id number] Oral 50 500 Blood Product 320 Platelet Irr Pheresis 2 320 Acda Unit [id number] Output: Urine 925 925 Stool 600 Other: Voiding Method Indwelling Catheter Indwelling Catheter Indwelling Catheter # Voids 2 - Exam -GENERAL: The patient is alert and oriented x3, not in any acute distress. Generalized weakness HEENT: Pupils are round and equally reacting to light. EOMI. No scleral icterus. No conjunctival pallor. Normocephalic, atraumatic. No pharyngeal erythema. No thyromegaly. CARDIOVASCULAR: S1 and S2 present. No murmurs, rubs, or gallops. PULMONARY: Chest is clear to auscultation, no wheezing or crackles. ABDOMEN: Soft, nontender, nondistended, normoactive bowel sounds. No palpable organomegaly. MUSCULOSKELETAL: No joint swelling or deformity. EXTREMITIES: No cyanosis, clubbing, or pedal edema. NEUROLOGICAL: Gross neurological examination did not reveal any focal deficits. SKIN: No rashes. no petechiae. - Labs CBC & Chem 7: 03/14/20 05:01 03/14/20 05:01 Labs: Abnormal Lab Results - Last 24 Hours (Table) 03/14/20 Range/Units 05:01 WBC 0.6 L* (3.8-10.6) k/uL RBC 2.53 L (4.30-5.90) m/uL Hgb 7.9 L (13.0-17.5) gm/dL Hct 22.6 L (39.0-53.0) % Plt Count 4 L* (150-450) k/uL Microbiology - Last 24 Hours (Table) 03/12/20 03:52 Blood Culture - Preliminary Blood No Growth after 48 hours Assessment and Plan Assessment: Neutropenic fever secondary to Pseudomonas bacteremia Status post Septic shock, his blood pressure is improved now Pancytopenia secondary to chemotherapy. AM, status post recent chemotherapy history of hemorrhagic stroke Plan: This is a pleasant 69 years old male who presents with septic shock secondary to Pseudomonas bacteremia. Continue with cefepime. Also is on Diflucan. Continue with gentle hydration. Follow-up recommendation by infectious disease and pu lmonary/culture team. Also oncology on the case for his AML. Transfuse for hemoglobin less than 7 or platelets less than 10 K or if symptomatic as per recommendation by oncology team. Labs and medication were reviewed.. Continue same treatment. Continue with symptomatic treatment. Resume home medication. Monitor lytes and vitals. DVT and GI prophylaxis. Further recommendationsas per clinical course of the patient DVT prophylaxis: no heparin in view of his thrombocytopenia GI Prophylaxis: Ppi Prognosis is guarded
[2020-03-14] MEDS: FLUCONAZOLE IN NACL,ISO-OSM 200 MG in SALINE 1 100ML.BAG IVPB SCH (13:49)
--- NOTE | 2020-03-14 14:46 | CT ---
EXAMINATION TYPE: CT abdomen pelvis w con DATE OF EXAM: 03/14/2020 COMPARISON: 02/28/2020 CT abdomen pelvis and CT chest 02/29/2020 HISTORY: Fever CONTRAST: CT scan of the abdomen and pelvis is performed with Oral Contrast and with IV Contrast, patient injec juliette with 100 mL of Isovue 300. FINDINGS: LUNG BASES-: Interval development of small basilar pleural effusions and atelectasis and/or infiltrat es. LIVER/GB: No calcified gallstones. There is evidence of hepatomegaly. No space occupying hepatic l esion. Biliary tree is of normal caliber. PANCREAS: No inflammation. No distinct mass. SPLEEN: No splenic enlargement. No lesion seen. ADRENALS: No nodule. No thickening. KIDNEYS/BLADDER: No hydronephrosis. No nephrolithiasis. No distinct renal mass. Urinary bladder g rossly unremarkable. There appears to be a urinary bladder catheter. BOWEL: Correlate for rectal catheter. Normal appendix. Normal bowel caliber. No inflammation. GENITAL ORGANS: No gross abnormality. LYMPH NODES: No greater than 1cm abdominal or pelvic lymph nodes are appreciated. AORTA: No significant abnormality. OSSEOUS STRUCTURES: No significant abnormality is seen. OTHER: No significant additional abnormality is seen. IMPRESSION: 1. No acute intra-abdominal process is appreciated. 2. Interval small basilar pleural effusions and probable atelectasis. Developing infiltrates difficul t to exclude. 3. Hepatomegaly.
[2020-03-14] MEDS: CHOLESTYRAMINE (WITH SUGAR) 4 GM PACKET PO SCH (17:23)
[2020-03-15] MEDS: NOREPINEPHRINE 4 MG in SODIUM CHLORIDE 0.9% 250 ML IV SCH ×2 (01:35→19:00)
--- NOTE | 2020-03-15 03:03 | PN ---
PROGRESS NOTE DATE OF SERVICE: 03/14/2020 REASON FOR FOLLOWUP: Pseudomonas bacteremia. INTERVAL HISTORY: The patient did have new fever 100.5 this afternoon. The patient has been afebrile since then. The patient denies having any chest pain, shortness of breath or cough. No nausea, no vomiting. No abdominal pain or diarrhea. PHYSICAL EXAMINATION: Blood pressure 112/74 with pulse of 78, temperature 98.5, T-max a 100.5. He is 98% on room air. General description is an elderly male lying in bed in no distress. RESPIRATORY SYSTEM: Unlabored breathing, clear to auscultation anteriorly. HEART: S1, S2. Regular rate and rhythm. ABDOMEN: Soft, no tenderness. LABS: Hemoglobin 7.9, white count 0.6, creatinine 0.72. Blood culture has been negative. CT of abdomen and pelvis did not show any acute abnormality. DIAGNOSTIC IMPRESSION AND PLAN: Patient with Pseudomonas aeruginosa bacteremia with concern for possible PICC line related; however, the patient has very clearly. . CT of abdomen and pelvis was negative as well. In view of low-grade fever, ultrasound of the left lower extremity checked to make sure no evidence of any deep venous thrombosis. Continue with cefepime and monitor clinical course closely. MMODL / IJN: [id number] /
[2020-03-15] MEDS: SALT AND SODA MOUTHWASH 1,000 ML PO SCH ×4 (05:40→19:01)
[2020-03-15 07:16] LABS: HCT 20.8 % (39.0-53.0); HGB 7.2 gm/dL (13.0-17.5); MCH 31.1 pg (25.0-35.0); MCHC 34.7 g/dL (31.0-37.0); MCV 89.7 fL (80.0-100.0); Mean Platelet Volume 9.3; RBC 2.32 m/uL (4.30-5.90); RDW 14.2 % (11.5-15.5)
[2020-03-15 07:26] LABS: Platelet Count 7 k/uL (150-450); WBC 0.7 k/uL (3.8-10.6)
[2020-03-15] MEDS: PANTOPRAZOLE 40 MG TABLET PO SCH (08:13)
[2020-03-15] MEDS: CEFEPIME 2 GM in SODIUM CHLORIDE 0.9% 100 ML IVPB SCH ×2 (08:13→17:32)
[2020-03-15] MEDS: SODIUM CHLORIDE 0.9% 1,000 ML IV SCH ×2 (08:14→19:47)
[2020-03-15] MEDS: FLUoxetine HCL 20 MG CAP PO SCH (08:14)
[2020-03-15] MEDS: clonazePAM 1 MG TAB PO SCH ×2 (08:14→19:24)
--- NOTE | 2020-03-15 08:55 | US ---
EXAMINATION TYPE: US venous doppler duplex UE LT DATE OF EXAM: 03/15/2020 COMPARISON: NONE CLINICAL HISTORY: swelling. edema SIDE PERFORMED: Left Left Arm: Negative for DVT Grayscale, color doppler, spectral doppler imaging performed of the deep veins of the left upper extr emity. There is normal flow, compressibility and vascular waveforms. IMPRESSION: No ultrasound evidence for acute deep or superficial venous thrombosis in the left upper extremity.
[2020-03-15 11:33] LABS: African American GFR (CKD) 107.1 (60.0-200.0); Anion Gap 7.2 mmol/L (4.00-12.00); BUN/Creat Ratio 22.5 Ratio (12.00-20.00); Calcium 7.4 mg/dL (8.7-10.3); Carbon Dioxide 23.8 mmol/L (21.6-31.8); Non-African American GFR(CKD) 92.4 (60.0-200.0); Potassium 3.9 mmol/L (3.5-5.5)
--- NOTE | 2020-03-15 11:52 | P.PN ---
Subjective Progress Note Date: 03/15/20 Principal diagnosis: fever, sepsis In follow-up today patient more tired, I had to speak loudly to keep him awake. Fever of 101.6 Fahrenheit overnight, VS otherwise stable. He is tolerating full liquid diet. Denies oral irritation, nausea, vomiting, cough or purulent sputum, abdominal pain, cramping, or new pain. Objective - Vital Signs Vital signs: Vital Signs Temp 101.3 F H 03/15/20 11:38 Pulse 88 03/15/20 11:38 Resp 18 03/15/20 11:38 BP 116/58 03/15/20 11:38 Pulse Ox 96 03/15/20 11:38 Intake & Output 03/14/20 03/15/20 03/15/20 18:59 06:59 18:59 Intake Total 820 1200 400 Output Total 2750 750 Balance -1930 450 400 Intake: IV 1200 Sodium Chloride 0.9% 1, 1200 000 ml @ 75 mls/hr IV . [id number] [facility] Rx#:[id number] Oral 500 400 Blood Product 320 0 Platelet Irr Pheresis 2 0 Acda Unit [id number] Platelet Irr Pheresis 2 320 Acda Unit [id number] Output: Urine 2750 750 Uretheral (Pascual) 750 Other: Voiding Method Indwelling Catheter Indwelling Catheter # Voids 2 - Constitutional General appearance: Present: average body habitus, cooperative, no acute distress - EENT Eyes: Present: anicteric sclerae, EOMI ENT: Present: hearing grossly normal, normal oropharynx - Respiratory Respiratory: bilateral: CTA, diminished (bases) - Cardiovascular Rhythm: regular Heart sounds: normal: S1, S2 Abnormal Heart Sounds: Absent: systolic murmur, diastolic murmur, rub, S3 Gallop, S4 Gallop, click, other - Peripheral edema leg Peripheral Edema: bilateral: None - Gastrointestinal Gastrointestinal Comment(s): no rebound General gastrointestinal: Present: normal bowel sounds, soft - Neurologic Neurologic: Present: CNII-XII intact - Musculoskeletal Musculoskeletal: Present: generalized weakness - Psychiatric Psychiatric: Present: A&O x's 3, appropriate affect, intact judgment & insight - Labs CBC & Chem 7: 03/15/20 06:47 03/15/20 06:47 Labs: Abnormal Lab Results - Last 24 Hours (Table) 03/15/20 03/15/20 Range/Units 06:47 06:47 WBC 0.7 L* (3.8-10.6) k/uL RBC 2.32 L (4.30-5.90) m/uL Hgb 7.2 L (13.0-17.5) gm/dL Hct 20.8 L (39.0-53.0) % Plt Count 7 L* D (150-450) k/uL BUN/Creatinine Ratio 22.50 H (12.00-20.00) Ratio Glucose 123 H (70-110) mg/dL Calcium 7.4 L (8.7-10.3) mg/dL Microbiology - Last 24 Hours (Table) 03/12/20 03:52 Blood Culture - Preliminary Blood No Growth after 72 hours 03/13/20 22:17 Blood Culture - Preliminary Blood No Growth after 24 hours - Imaging and Cardiology CT scan - abdomen: report reviewed (bibasilar atelectasis, hepatomegaly) CT scan - pelvis: report reviewed Venous US: report reviewed (no DVT or superficial thrombosis in the left upper extremity) Assessment and Plan (1) Pseudomonal bacteremia Narrative/Plan: Infectious Disease following. Current Visit: Yes Status: Acute Priority: High Code(s): R78.81 - BACTEREMIA; B96.5 - PSEUDOMONAS (MALLEI) CAUSING DISEASES CLASSD ELSR SNOMED Code(s): 446922119532 (2) Acute myeloid leukemia Narrative/Plan: Patient completed first cycle of treatment early in February. Pending follow-up bone marrow biopsy to confirm remission. Need to wait until bacteremia is resolved or patient is significantly more stable to schedule Current Visit: Yes Status: Acute Priority: High Code(s): C92.00 - ACUTE MYELOBLASTIC LEUKEMIA, NOT HAVING ACHIEVED REMISSION SNOMED Code(s): 90442504 (3) Pancytopenia due to antineoplastic chemotherapy Narrative/Plan: Transfuse to keep hemoglobin 7 or higher. Hemoglobin 7.2 today, no transfusion needed Platelets will continue to be transfused if symptomatic or less than 10,000. Plt 7000, 1 unit SDP, irradiated. WBC 0.7. No G-CSF as patient is not a confirmed remission. Pancytopenia is also being exacerbated by acute bacteremia. Patient is on antibiotics and being followed by ID Current Visit: Yes Status: Acute Priority: High Code(s): D61.810 - ANTINEOPLASTIC CHEMOTHERAPY INDUCED PANCYTOPENIA; T45.1X5A - ADVERSE EFFECT OF ANTINEOPLASTIC AND IMMUNOSUP DRUGS, INIT SNOMED Code(s): 263938261573539 Plan: Incentive spirometry ordered for by basilar atelectasis most likely from metal debility and prolonged bed rest/hospitalization Discussed with Nursing. Plan is to remove fecal management system as the stool is noted to be slightly more formed. Fecal management system will be removed very carefully either during or just after platelet infusion. Discussed case with Infectious Disease. Request stool specimen to be sent for Clostridium difficilel infection and culture.
[2020-03-15] MEDS: ACETAMINOPHEN TAB 325 MG TAB PO PRN (11:57)
[2020-03-15] MEDS: FLUCONAZOLE 100 MG TAB PO SCH (11:57)
[2020-03-15] MEDS: CHOLESTYRAMINE (WITH SUGAR) 4 GM PACKET PO SCH ×2 (11:57→17:21)
--- NOTE | 2020-03-15 18:36 | P.PN ---
Subjective Patient is a 69-year-old male with a known history of AML currently undergoing chemotherapy, last chemotherapy yesterday, hypertension, hyperlipidemia, history of left-sided spontaneous pneumothorax, hemorrhagic stroke, left carotid stenosis 50%) of smoking and anxiety/depression presents to ER with complaints of fever started since morning today. Patient has been having fever chills and generalized weakness and malaise and fatigue. Denies any cough or sputum production. No nausea vomiting or diarrhea. No complaints of abdominal pain. No headache or dizziness or lightheadedness. In the ER initial vitals showed blood pressure 109/65 pulse is 103, respiration 18 and temperature 103.4 Chest x-ray showed mild strandy density right lung base without focal consolidation. EKG showed sinus tachycardia Laboratory data showed WBC count 0.4, hemoglobin 8.6, platelets 3 Sodium 134, potassium 4.0, BUN 21, creatinine 0.91, lactic acid 3.4 AST 14 ALT 22 alk phos 60 LDH 311 CRP 50.6 and procalcitonin 0.15 Urinalysis negative for infection Rapid coronavirus PCR is negative in the ER. 03/11/2020 Patient is currently in the MICU. Awake alert and oriented x3. Still requiring pressor support. Currently on antibiotics in the form of vancomycin, cefepime and fluconazole. Pulmonary, oncology is following. Laboratory data showed WBC seven 0.4, hemoglobin 7.2 and platelets 8,000. Sodium 133, potassium 3.8, bicarb is 19 and BUN 21 creatinine 1.13 calcium 6.8 albumin 2.3 Patient is also febrile with T-max 102.4. Cultures showed gram-negative bacilli. No complaints of nausea vomiting or abdominal pain or diarrhea. No dysuria or hematuria. 03/12/2020 Patient is currently lying in the bed comfortably. Blood cultures growing Pseudomonas species. Patient remains on antibiotics in the form of vancomycin, cefepime and Diflucan. Denied any complaints of nausea vomiting or abdominal pain or diarrhea. Patient was febrile with T-max 100.8 today. Patient is still tachycardic and tachypneic. Patient is off pressor support. Hemoglobin level dropped down to 6.1 today. Transfused with 1 unit of PRBC. WBC count is 0.3 and platelet count 2000. Potassium level is 3.1 and bicarb is 20 BUN 12 and creatinine 0.97 Subjective: 03/13/2020 This is a pleasant 69 years old male with AML on chemotherapy presents with neutropenic fever and found to have sepsis secondary to Pseudomonas bacteremia and septic shock needed pressors. Also he has pancytopenia secondary to chemotherapy, platelet count was 6K today anticipated 20 red blood transfusion, pulmonary and oncology team on the case.Patient is fully awake and oriented, however he feels generally weak with deconditioning Antibiotics in the form of cefepime and Diflucan. Also he is on normal saline at 1 25 mL/h 03/14/2020 Patient was transferred to the general medical floor today, he feels generally weak and tired, he had little diarrhea about 2-3 times today, there was no blood in his stool or anywhere else as per patient. All 1.6 today. AV first of Vitas looks stable. He has persistent pancytopenia male with neutropeniaand leukopenia of 0.6K, thrombocytopenia with platelet for K, he got another unit of platelet transfusion today. Hemoglobin is low and stable at 7.9. Creatinine is normal at 0.7. He remains on cefepime intravenously as well as Diflucan. Normal saline at 75 mL/h 03/15/2020 Patient feels little better today although he still generally weak. He has better appetite and he ate most of his breakfast this morning. His pancytopenia is a slightly better He remains on rectal tube and Pascual catheter is in place CT of the abdomen and pelvis showing interval development of small bilateral pleural effusion with atelectasis/effusion, hepatomegaly He remains on cefepime and Diflucan Objective - Vital Signs Vital signs: Vital Signs Temp 99.4 F 03/15/20 05:00 Pulse 89 03/15/20 05:00 Resp 20 03/15/20 05:00 BP 95/60 03/15/20 05:00 Pulse Ox 92 L 03/15/20 05:00 Intake & Output 03/14/20 03/15/20 03/15/20 18:59 06:59 18:59 Intake Total 820 1200 400 Output Total 2750 750 Balance -1930 450 400 Intake: IV 1200 Sodium Chloride 0.9% 1, 1200 000 ml @ 75 mls/hr IV . [id number] [facility] Rx#:[id number] Oral 500 400 Blood Product 320 Platelet Irr Pheresis 2 320 Acda Unit [id number] Output: Urine 2750 750 Uretheral (Pascual) 750 Other: Voiding Method Indwelling Catheter Indwelling Catheter # Voids 2 - Exam -GENERAL: The patient is alert and oriented x3, not in any acute distress. Generalized weakness HEENT: Pupils are round and equally reacting to light. EOMI. No scleral icterus. No conjunctival pallor. Normocephalic, atraumatic. No pharyngeal erythema. No thyromegaly. CARDIOVASCULAR: S1 and S2 present. No murmurs, rubs, or gallops. PULMONARY: Chest is clear to auscultation, no wheezing or crackles. ABDOMEN: Soft, nontender, nondistended, normoactive bowel sounds. No palpable organomegaly. MUSCULOSKELETAL: No joint swelling or deformity. EXTREMITIES: No cyanosis, clubbing, or pedal edema. NEUROLOGICAL: Gross neurological examination did not reveal any focal deficits. SKIN: No rashes. no petechiae. - Labs CBC & Chem 7: 03/15/20 06:47 03/15/20 06:47 Labs: Abnormal Lab Results - Last 24 Hours (Table) 03/15/20 Range/Units 06:47 WBC 0.7 L* (3.8-10.6) k/uL RBC 2.32 L (4.30-5.90) m/uL Hgb 7.2 L (13.0-17.5) gm/dL Hct 20.8 L (39.0-53.0) % Plt Count 7 L* D (150-450) k/uL Microbiology - Last 24 Hours (Table) 03/12/20 03:52 Blood Culture - Preliminary Blood No Growth after 72 hours 03/13/20 22:17 Blood Culture - Preliminary Blood No Growth after 24 hours Assessment and Plan Assessment: Neutropenic fever secondary to Pseudomonas bacteremia Status post Septic shock, his blood pressure is improved now Pancytopenia secondary to chemotherapy. AM, status post recent chemotherapy history of hemorrhagic stroke Plan: This is a pleasant 69 years old male who presents with septic shock secondary to Pseudomonas bacteremia. Continue with cefepime. Also is on Diflucan. Continue with gentle hydration. Follow-up recommendation by infectious disease and pulmonary/culture team. Also oncology on the case for his AML. Transfuse for hemoglobin less than 7 or platelets less than 10 K or if symptomatic as per recommendation by oncology team. Labs and medication were reviewed.. Continue same treatment. Continue with symptomatic treatment. Resume home medication. Monitor lytes and vitals. DVT and GI prophylaxis. Further recommendationsas per clinical course of the patien t DVT prophylaxis: no heparin in view of his thrombocytopenia GI Prophylaxis: Ppi Prognosis is guarded
[2020-03-16] MEDS: SALT AND SODA MOUTHWASH 1,000 ML PO SCH ×6 (00:06→23:51)
[2020-03-16] MEDS: CEFEPIME 2 GM in SODIUM CHLORIDE 0.9% 100 ML IVPB SCH ×4 (00:06→23:55)
--- NOTE | 2020-03-16 01:21 | PN ---
PROGRESS NOTE DATE OF SERVICE: 03/15/2020 REASON FOR FOLLOWUP: Pseudomonas bacteremia. INTERVAL HISTORY: Patient is currently afebrile. He did have low grade fever of 100 Fahrenheit and 101 this morning. The patient denies having any chest pain. No shortness of breath or cough. No nausea. No abdominal pain. He did have diarrhea. The patient did have fecal management system. PHYSICAL EXAMINATION: Blood pressure 107/61 with a pulse of 80, temperature 98.1. He is 95% on room air. General description: The patient is an elderly male lying in bed in no distress. Respiratory system: Unlabored breathing and clear to auscultation anteriorly. Heart S1, S2. Regular rate and rhythm. ABDOMEN: Soft, no tenderness. LABS: Hemoglobin 7.1, white count 0.7, BUN of 18, creatinine 0.8. Blood culture repeat has been negative. CT of abdomen and pelvis was negative. Left arm ultrasound was negative for any DVT. DIAGNOSTIC IMPRESSION AND PLAN: Patient with febrile neutropenia in this patient who did have evidence of Pseudomonas bacteremia with concern for possible related to the PICC line. However, repeat culture came back negative. CT of abdomen and pelvis was negative and no evidence of any DVT with persistent low-grade fever could be related to underlying hematological malignancy. We will discuss further with Hematology-Oncology. For now, we will keep the patient on cefepime, check a CRP and procalcitonin tomorrow and monitor clinical course closely. MMODL / YECENIAN: [id number] /
[2020-03-16 07:49] LABS: MCH 30.3 pg (25.0-35.0); MCHC 33.6 g/dL (31.0-37.0); Mean Platelet Volume 10.4; RBC 2.18 m/uL (4.30-5.90); RDW 14.6 % (11.5-15.5)
[2020-03-16] MEDS: FLUoxetine HCL 20 MG CAP PO SCH (08:14)
[2020-03-16] MEDS: clonazePAM 1 MG TAB PO SCH ×2 (08:15→23:51)
[2020-03-16] MEDS: PANTOPRAZOLE 40 MG TABLET PO SCH (08:15)
[2020-03-16] MEDS: CHOLESTYRAMINE (WITH SUGAR) 4 GM PACKET PO SCH ×2 (08:16→17:52)
[2020-03-16] MEDS: NOREPINEPHRINE 4 MG in SODIUM CHLORIDE 0.9% 250 ML IV SCH (08:17)
[2020-03-16 08:57] LABS: WBC 0.9 k/uL (3.8-10.6)
[2020-03-16 08:58] LABS: HGB 6.6 gm/dL (13.0-17.5); Platelet Count 14 k/uL (150-450)
[2020-03-16 09:02] LABS: HCT 19.6 % (39.0-53.0)
[2020-03-16 09:40] LABS: African American GFR (CKD) 102.1 (60.0-200.0); Anion Gap 6.5 mmol/L (4.00-12.00); BUN/Creat Ratio 17.78 Ratio (12.00-20.00); C Reactive Protein 12.6 mg/dL (0.0-0.8); Calcium 7.4 mg/dL (8.7-10.3); Carbon Dioxide 24.5 mmol/L (21.6-31.8); Magnesium 1.9 mg/dL (1.5-2.4); Non-African American GFR(CKD) 88.1 (60.0-200.0); Potassium 3.5 mmol/L (3.5-5.5)
[2020-03-16] MEDS ORDERED: FUROSEMIDE 10 MG/ML 2 ML VIAL IV ONE (10:23)
[2020-03-16] MEDS: SODIUM CHLORIDE 0.9% 1,000 ML IV SCH (13:07)
[2020-03-16] MEDS: FLUCONAZOLE 100 MG TAB PO SCH (15:08)
[2020-03-16] MEDS ORDERED: RX INFO: IV CONTRAST WAS GIVEN 1 EACH MISC MISCELLANE PRN (15:40)
--- NOTE | 2020-03-16 16:49 | PN ---
PROGRESS NOTE DATE OF SERVICE: March 16, 2020. REASON FOR VISIT: Acute myelogenous leukemia and neutropenic fever. CHIEF COMPLAINT: Tired and cough. Flex is seen today as a followup. Overall he has been relatively stable. However, he has been complaining of some dry cough. He has no chills. He has no nausea. Soft stool. No burning with urination. No reported melena, hematochezia, hematuria or hemoptysis. He remained significantly neutropenic and he continued to spike a low- grade fever. CURRENT MEDICATION: Reviewed in his electronic medical record. He remains on broad-spectrum antibiotic in the form of cefepime 2 g every 8 hours. PHYSICAL EXAMINATION: He is alert, oriented x3. He does not appear to be in distress. His vital signs temperature 98.2. He had his temp max at midnight was 100.0 and at 11:48 pm last night, his temp was 101.4. His blood pressure 106/61. Respirations 16, pulse is 80. HEENT: Normocephalic, atraumatic. Oral mucosa are somewhat dry. He has mild mucositis. NECK: Supple. Chest equal expansion bilaterally. LUNGS: Clear to auscultation. Heart is irregular rate and rhythm. ABDOMEN: Soft. There is no tenderness or bowel sounds present. No organomegaly. EXTREMITIES: No edema. Skin: Few bruises noted and some petechiae noted on his lower extremities. LABORATORY DATA: From today, total WBC are 0.9, hemoglobin 6.6, hematocrit 19.6, platelets are 14. Sodium 134, potassium 3.5, chloride 103, CO2 24, BUN 16, creatinine 0.9. IMPRESSION: 1. Acute myelogenous leukemia status post induction therapy. 2. Prolonged neutropenia. He has been neutropenic for about 3 weeks now. He continues to spike fever intermittently. At this point in time, fungal infection should be suspected. However, he is clinically stable, but in view of his dry cough may consider after obtaining a CT scan of the chest to rule out infiltrate or possible underlying fungal infection. At that point, broader antifungal therapy should be highly considered like posaconazole or . 3. Severe chemotherapy-induced myelosuppression. 4. Continue to monitor blood count and supportive transfusion. The above was discussed with the patient. I have answered all his questions to his satisfaction. MMODL / IJN: [id number] /
--- NOTE | 2020-03-16 18:06 | CT ---
EXAMINATION TYPE: CT chest w con DATE OF EXAM: 03/16/2020 COMPARISON: Chest CT 16 days ago. HISTORY: fever, sepsis, cough CT DLP: 350.5 mGycm. Automated Exposure Control for Dose Reduction was Utilized. TECHNIQUE: CT scan of the thorax is performed following with IV Contrast, patient injected with 50 m L of Isovue 300. FINDINGS: LUNGS: There is small to tiny left pleural effusion. There is trace right pleural effusion in the bas e axial image 43. There is associated bibasilar atelectasis and/or consolidation. New faint multifoca l areas of groundglass opacity particularly in the right upper lobe are noted. No pneumothorax bilate rally. Tracheobronchial tree is patent. MEDIASTINUM: There are no greater than 1 cm hilar or mediastinal lymph nodes. No pericardial effusi on is seen. Heart size stable and upper limits of normal. Mild Coronary artery calcification LAD dis tribution. OTHER: New left-sided PICC line terminates in SVC. IMPRESSION: New small to tiny left greater than right pleural effusions. New left greater than right bilateral posterior compressive atelectasis and/or limited consolidation. Interval development of mul tifocal small areas groundglass opacity particularly in the right upper lobe worrisome for developing edema and/or infiltrates. Correlate clinically.
[2020-03-16] MEDS ORDERED: FUROSEMIDE 10 MG/ML 2 ML VIAL IV STA (18:30)
--- NOTE | 2020-03-16 18:33 | P.PN ---
Subjective Patient is a 69-year-old male with a known history of AML currently undergoing chemotherapy, last chemotherapy yesterday, hypertension, hyperlipidemia, history of left-sided spontaneous pneumothorax, hemorrhagic stroke, left carotid stenosis 50%) of smoking and anxiety/depression presents to ER with complaints of fever started since morning today. Patient has been having fever chills and generalized weakness and malaise and fatigue. Denies any cough or sputum production. No nausea vomiting or diarrhea. No complaints of abdominal pain. No headache or dizziness or lightheadedness. In the ER initial vitals showed blood pressure 109/65 pulse is 103, respiration 18 and temperature 103.4 Chest x-ray showed mild strandy density right lung base without focal consolidation. EKG showed sinus tachycardia Laboratory data showed WBC count 0.4, hemoglobin 8.6, platelets 3 Sodium 134, potassium 4.0, BUN 21, creatinine 0.91, lactic acid 3.4 AST 14 ALT 22 alk phos 60 LDH 311 CRP 50.6 and procalcitonin 0.15 Urinalysis negative for infection Rapid coronavirus PCR is negative in the ER. 03/11/2020 Patient is currently in the MICU. Awake alert and oriented x3. Still requiring pressor support. Currently on antibiotics in the form of vancomycin, cefepime and fluconazole. Pulmonary, oncology is following. Laboratory data showed WBC seven 0.4, hemoglobin 7.2 and platelets 8,000. Sodium 133, potassium 3.8, bicarb is 19 and BUN 21 creatinine 1.13 calcium 6.8 albumin 2.3 Patient is also febrile with T-max 102.4. Cultures showed gram-negative bacilli. No complaints of nausea vomiting or abdominal pain or diarrhea. No dysuria or hematuria. 03/12/2020 Patient is currently lying in the bed comfortably. Blood cultures growing Pseudomonas species. Patient remains on antibiotics in the form of vancomycin, cefepime and Diflucan. Denied any complaints of nausea vomiting or abdominal pain or diarrhea. Patient was febrile with T-max 100.8 today. Patient is still tachycardic and tachypneic. Patient is off pressor support. Hemoglobin level dropped down to 6.1 today. Transfused with 1 unit of PRBC. WBC count is 0.3 and platelet count 2000. Potassium level is 3.1 and bicarb is 20 BUN 12 and creatinine 0.97 Subjective: 03/13/2020 This is a pleasant 69 years old male with AML on chemotherapy presents with neutropenic fever and found to have sepsis secondary to Pseudomonas bacteremia and septic shock needed pressors. Also he has pancytopenia secondary to chemotherapy, platelet count was 6K today anticipated 20 red blood transfusion, pulmonary and oncology team on the case.Patient is fully awake and oriented, however he feels generally weak with deconditioning Antibiotics in the form of cefepime and Diflucan. Also he is on normal saline at 1 25 mL/h 03/14/2020 Patient was transferred to the general medical floor today, he feels generally weak and tired, he had little diarrhea about 2-3 times today, there was no blood in his stool or anywhere else as per patient. All 1.6 today. AV first of Vitas looks stable. He has persistent pancytopenia male with neutropeniaand leukopenia of 0.6K, thrombocytopenia with platelet for K, he got another unit of platelet transfusion today. Hemoglobin is low and stable at 7.9. Creatinine is normal at 0.7. He remains on cefepime intravenously as well as Diflucan. Normal saline at 75 mL/h 03/15/2020 Patient feels little better today although he still generally weak. He has better appetite and he ate most of his breakfast this morning. His pancytopenia is a slightly better He remains on rectal tube and Pascual catheter is in place CT of the abdomen and pelvis showing interval development of small bilateral pleural effusion with atelectasis/effusion, hepatomegaly He remains on cefepime and Diflucan 03/16/2020 Patient is somewhat less weak however has not completely back to usual state. He states now much difference from yesterday. He had 2 bowel movements a known 4 mL Robert Juan, his rectal tube was discontinued however he denies abdominal pain. No worsening or new symptoms. C. diff been negative WBC and platelets slightly improving to 0.9K and 14 K respectively. However hemoglobin is low at 6.6 today and blood transfusion is ordered and we'll follow his hemoglobin closely. He'll call calcitonin increased from 0.25 up to 1.0. He is currently on cefepime for Pseudomonas bacteremia. He has CT of the chest showing: Left greater than right bilateral posterior compressive atelectasis versus consolidation with interval development of multifocal small areas of groundglass opacity particularly in the right upper lobe worrisome for developin g edema and/or infiltrate We will resend urinalysis and urine culture grew his Pascual catheter. Antibiotics per infectious disease and currently is on cefepime and Diflucan. We'll await infectious disease team for further recommendation. Also Patient has good appetite. We will lower his normal saline to 50 mL/h and give 1 dose of Lasix for possible fluid in the chest however patient with no respiratory symptoms today Objective - Vital Signs Vital signs: Vital Signs Temp 98 F 03/16/20 15:17 Pulse 82 03/16/20 15:17 Resp 16 03/16/20 15:17 BP 107/66 03/16/20 15:17 Pulse Ox 95 03/16/20 13:30 Intake & Output 03/15/20 03/16/20 03/16/20 18:59 06:59 18:59 Intake Total 896 660 310 Output Total 009 375 3629 Balance 246 -190 -1840 Intake: IV 600 Sodium Chloride 0.9% 1, 600 000 ml @ 75 mls/hr IV . [id number] [facility] Rx#:[id number] Oral 400 60 Blood Product 196 310 Platelet Irr Pheresis 2 196 Acda Unit [id number] Rc Irr As1 Unit 310 [id number] Other 300 Output: Urine 823 024 7140 Uretheral (Pascual) 650 Stool 0 Other: Voiding Method Indwelling Catheter Indwelling Catheter Indwelling Catheter # Bowel Movements 1 - Exam -GENERAL: The patient is alert and oriented x3, not in any acute distress. Generalized weakness HEENT: Pupils are round and equally reacting to light. EOMI. No scleral icterus. No conjunctival pallor. Normocephalic, atraumatic. No pharyngeal erythema. No thyromegaly. CARDIOVASCULAR: S1 and S2 present. No murmurs, rubs, or gallops. PULMONARY: Chest is clear to auscultation, no wheezing or crackles. ABDOMEN: Soft, nontender, nondistended, normoactive bowel sounds. No palpable organomegaly. MUSCULOSKELETAL: No joint swelling or deformity. EXTREMITIES: No cyanosis, clubbing, or pedal edema. NEUROLOGICAL: Gross neurological examination did not reveal any focal deficits. SKIN: No rashes. no petechiae. - Labs CBC & Chem 7: 03/16/20 05:54 03/16/20 05:54 Labs: Abnormal Lab Results - Last 24 Hours (Table) 03/16/20 03/16/20 03/16/20 Range/Units 05:54 05:54 05:59 WBC 0.9 L* (3.8-10.6) k/uL RBC 2.18 L (4.30-5.90) m/uL Hgb 6.6 L* (13.0-17.5) gm/dL Hct 19.6 L* (39.0-53.0) % Plt Count 14 L* D (150-450) k/uL Sodium 134 L (135-145) mmol/L Glucose 112 H (70-110) mg/dL Calcium 7.4 L (8.7-10.3) mg/dL C-Reactive Protein 12.6 H (0.0-0.8) mg/dL Procalcitonin 1.03 H (0.02-0.09) ng/mL Crossmatch 03/16/20 Range/Units 10:38 WBC (3.8-10.6) k/uL RBC (4.30-5.90) m/uL Hgb (13.0-17.5) gm/dL Hct (39.0-53.0) % Plt Count (150-450) k/uL Sodium (135-145) mmol/L Glucose (70-110) mg/dL Calcium (8.7-10.3) mg/dL C-Reactive Protein (0.0-0.8) mg/dL Procalcitonin (0.02-0.09) ng/mL Crossmatch See Detail Microbiology - Last 24 Hours (Table) 03/12/20 03:52 Blood Culture - Preliminary Blood No Growth after 96 hours 03/13/20 22:17 Blood Culture - Preliminary Blood No Growth after 48 hours Assessment and Plan Assessment: Neutropenic fever secondary to Pseudomonas bacteremia Status post Septic shock, his blood pressure is improved now Pancytopenia secondary to chemotherapy. AM, status post recent chemotherapy history of hemorrhagic stroke Plan: This is a pleasant 69 years old male who presents with septic shock secondary to Pseudomonas bacteremia. Continue with cefepime. Also is on Diflucan. Continue with gentle hydration. Follow-up recommendation by infectious disease and pul monary/culture team. Also oncology on the case for his AML. Transfuse for hemoglobin less than 7 or platelets less than 10 K or if symptomatic as per recommendation by oncology team. Labs and medication were reviewed.. Continue same treatment. Continue with symptomatic treatment. Resume home medication. Monitor lytes and vitals. DVT and GI prophylaxis. Further recommendationsas per clinical course of the patient DVT prophylaxis: no heparin in view of his thrombocytopenia GI Prophylaxis: Ppi Prognosis is guarded
[2020-03-17] MEDS: SALT AND SODA MOUTHWASH 1,000 ML PO SCH ×5 (05:35→23:47)
[2020-03-17] MEDS: SODIUM CHLORIDE 0.9% 1,000 ML IV SCH (05:36)
--- NOTE | 2020-03-17 07:00 | PN ---
PROGRESS NOTE DATE OF SERVICE: 03/17/2020 REASON FOR FOLLOWUP: Pseudomonas bacteremia. INTERVAL HISTORY: Patient is currently afebrile. The patient is breathing comfortably. Denies any chest pain or shortness of breath or cough. No nausea, vomiting, abdominal pain and diarrhea has improved. PHYSICAL EXAMINATION: Blood pressure 107/66, pulse of 82, temperature 98, he is 95% on room air. General description is an elderly male lying in bed in no distress. Respiratory system: Unlabored breathing, clear to auscultation anteriorly. Heart S1, S2. Regular rate and rhythm. Abdomen is soft. No tenderness. LABS: Hemoglobin 6.6, white count 0.9, BUN of 16, creatinine 0.9. Blood culture repeat has been negative. DIAGNOSTIC IMPRESSION AND PLAN: Patient with Pseudomonas bacteremia. This patient did have extensive workup and has been negative so far. Patient is currently covered with cefepime 2 g q.12h to continue and monitor clinical course closely. Continue supportive care. MMODL / IJN: [id number] /
[2020-03-17] MEDS: NOREPINEPHRINE 4 MG in SODIUM CHLORIDE 0.9% 250 ML IV SCH (07:35)
[2020-03-17 07:49] LABS: HCT 21.9 % (39.0-53.0); HGB 7.9 gm/dL (13.0-17.5); MCH 31.7 pg (25.0-35.0); MCV 88.1 fL (80.0-100.0); Mean Platelet Volume 9.6; RBC 2.49 m/uL (4.30-5.90); RDW 13.7 % (11.5-15.5)
[2020-03-17 07:50] LABS: Platelet Count 34 k/uL (150-450); WBC 1.3 k/uL (3.8-10.6)
[2020-03-17 08:29] LABS: Appearance,Urine Clear (Clear); Bilirubin,Urine Negative (Negative); Blood,Urine Small (Negative); Color,Urine Light Yellow; Glucose,Urine (UA) Negative (Negative); Ketones,Urine Negative (Negative); Leukocyte Esterase,Urine Negative (Negative); Mucus,Urine Rare /hpf; Nitrite,Urine Negative (Negative); PH, Urine 6.5 (5.0-8.0); Protein,Urine Trace (Negative); RBC,Urine 7 /hpf (0-5); Specific Gravity,Urine 1.018 (1.001-1.035); Urobilinogen,Urine <2.0 mg/dL (<2.0); WBC,Urine 1 /hpf (0-5)
[2020-03-17 09:03] LABS: Lymphocytes # (M) 0.79 k/uL (1.0-4.8); Monocytes # (M) 0.04 k/uL (0-1.0); Neutrophils # (M) 0.47 k/uL (1.3-7.7); Neutrophils % (M) 36 %; Nucleated Red Blood Cells 0 /100 WBC (0-0); Total Cells Counted 100
[2020-03-17] MEDS: CHOLESTYRAMINE (WITH SUGAR) 4 GM PACKET PO SCH ×2 (09:16→17:20)
[2020-03-17] MEDS: FLUCONAZOLE 100 MG TAB PO SCH (09:16)
[2020-03-17] MEDS: FLUoxetine HCL 20 MG CAP PO SCH (09:18)
[2020-03-17] MEDS: PANTOPRAZOLE 40 MG TABLET PO SCH (09:18)
[2020-03-17] MEDS: clonazePAM 1 MG TAB PO SCH ×2 (09:18→23:46)
[2020-03-17] MEDS: CEFEPIME 2 GM in SODIUM CHLORIDE 0.9% 100 ML IVPB SCH ×3 (09:22→23:47)
[2020-03-17 10:57] LABS: African American GFR (CKD) 107.1 (60.0-200.0); Anion Gap 4.6 mmol/L (4.00-12.00); BUN/Creat Ratio 23.75 Ratio (12.00-20.00); Calcium 7.5 mg/dL (8.7-10.3); Carbon Dioxide 25.4 mmol/L (21.6-31.8); Magnesium 1.9 mg/dL (1.5-2.4); Non-African American GFR(CKD) 92.4 (60.0-200.0); Potassium 3.5 mmol/L (3.5-5.5)
[2020-03-17 14:35] VITALS: BMI 29.9
--- NOTE | 2020-03-17 16:28 | PN ---
PROGRESS NOTE DATE OF SERVICE: 03/17/2020 REASON FOR FOLLOWUP: Pseudomonas bacteremia. INTERVAL COURSE: The patient is currently afebrile. The patient is feeling better. Breathing comfortably. Patient denies having any chest pain. No shortness of breath or cough. No nausea, no vomiting, no abdominal pain and diarrhea has resolved. PHYSICAL EXAMINATION: Blood pressure 105/65, pulse of 85, temperature 98.1. He is 97% on room air. General description is an elderly male, lying in bed in no distress. RESPIRATORY SYSTEM: Unlabored breathing, clear to auscultation anteriorly. HEART: S1, S2. Regular rate and rhythm. LABS: Hemoglobin 7.12, white count of 1.2, BUN of 19, creatinine 0.8. DIAGNOSTIC IMPRESSION AND PLAN: Patient with Pseudomonas bacteremia. Followup blood culture has been negative, no obvious focus. Patient clinical response to Cefepime to continue negative blood cultures and close outpatient followup. MMODL / IJN: [id number] /
--- NOTE | 2020-03-17 18:04 | P.PN ---
Subjective Progress Note Date: 03/17/20 Principal diagnosis: AML neutropenic fever Patient seen and evaluated today, on medical floor. No acute or new complaints today Was not interested in interview was on phone. Objective - Vital Signs Vital signs: Vital Signs Temp 98.1 F 03/17/20 12:04 Pulse 85 03/17/20 12:04 Resp 18 03/17/20 12:04 BP 105/65 03/17/20 12:04 Pulse Ox 97 03/17/20 12:04 Intake & Output 03/16/20 03/17/20 03/17/20 18:59 06:59 18:59 Intake Total 310 570 500 Output Total 2150 1500 Balance -1840 -930 500 Weight 81.6 kg Intake: IV 400 400 Sodium Chloride 0.9% 1, 400 400 000 ml @ 50 mls/hr IV . Q20H [facility] Rx#:[id number] Intake, IV Titration 100 Amount Cefepime 2 gm In Sodium 100 Chloride 0.9% 100 ml @ 25 mls/hr IVPB Q8HR [facility] Rx# :[id number] Oral 170 Blood Product 310 Rc Irr As1 Unit 310 [id number] Output: Urine 2150 1500 Stool 0 Other: Voiding Method Indwelling Catheter Indwelling Catheter Indwelling Catheter # Bowel Movements 1 - Exam - Constitutional General appearance: Present: average body habitus, cooperative, no acute distress - EENT Eyes: Present: anicteric sclerae, EOMI ENT: Present: hearing grossly normal, normal oropharynx - Respiratory Respiratory: bilateral: CTA, diminished (bases) - Cardiovascular Rhythm: regular Heart sounds: normal: S1, S2 Abnormal Heart Sounds: Absent: systolic murmur, diastolic murmur, rub, S3 Gallop, S4 Gallop, click, other - Peripheral edema leg Peripheral Edema: bilateral: None - Gastrointestinal Gastrointestinal Comment(s): no rebound General gastrointestinal: Present: normal bowel sounds, soft - Neurologic Neurologic: Present: CNII-XII intact - Musculoskeletal Musculoskeletal: Present: generalized weakness - Psychiatric Psychiatric: Present: A&O x's 3, appropriate affect, intact judgment & insight - Labs CBC & Chem 7: 03/17/20 06:47 03/17/20 06:47 Labs: Abnormal Lab Results - Last 24 Hours (Table) 03/17/20 03/17/20 03/17/20 Range/Units 06:00 06:47 06:47 WBC 1.3 L* (3.8-10.6) k/uL RBC 2.49 L (4.30-5.90) m/uL Hgb 7.9 L (13.0-17.5) gm/dL Hct 21.9 L (39.0-53.0) % Plt Count 34 L D (150-450) k/uL Neutrophils # (Manual) 0.47 L* (1.3-7.7) k/uL Lymphocytes # (Manual) 0.79 L (1.0-4.8) k/uL Sodium 133 L (135-145) mmol/L BUN/Creatinine Ratio 23.75 H (12.00-20.00) Ratio Calcium 7.5 L (8.7-10.3) mg/dL Urine Protein Trace H (Negative) Urine Blood Small H (Negative) Urine RBC 7 H (0-5) /hpf Urine Mucus Rare H (None) /hpf Microbiology - Last 24 Hours (Table) 03/12/20 03:52 Blood Culture - Preliminary Blood No Growth after 120 hours 03/13/20 22:17 Blood Culture - Preliminary Blood No Growth after 72 hours Assessment and Plan Plan: - Imaging and Cardiology CT scan - abdomen: report reviewed (bibasilar atelectasis, hepatomegaly) CT scan - pelvis: report reviewed Venous US: report reviewed (no DVT or superficial thrombosis in the left upper extremity) Assessment and Plan Pseudomonal bacteremia - Abx and Treatment per Infectious Disease following. 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 - Pending follow-up bone marrow biopsy to confirm remission. - Need to wait until bacteremia is resolved or patient is significantly more stable to schedule Pancytopenia due to antineoplastic chemotherapy Irradiated BLOOD Products Only Transfuse to keep hemoglobin 7 or higher. Platelets will continue to be transfused if symptomatic or less than 10,000. No G-CSF as patient is not a confirmed remission. Pancytopenia is also being exacerbated by acute bacteremia. Patient is on antibiotics and being followed by ID Plan: Continue aggressive supportive care and follow-up in office with primary oncologist after discharge.
--- NOTE | 2020-03-18 00:49 | P.PN ---
Subjective Patient is a 69-year-old male with a known history of AML currently undergoing chemotherapy, last chemotherapy yesterday, hypertension, hyperlipidemia, history of left-sided spontaneous pneumothorax, hemorrhagic stroke, left carotid stenosis 50%) of smoking and anxiety/depression presents to ER with complaints of fever started since morning today. Patient has been having fever chills and generalized weakness and malaise and fatigue. Denies any cough or sputum production. No nausea vomiting or diarrhea. No complaints of abdominal pain. No headache or dizziness or lightheadedness. In the ER initial vitals showed blood pressure 109/65 pulse is 103, respiration 18 and temperature 103.4 Chest x-ray showed mild strandy density right lung base without focal consolidation. EKG showed sinus tachycardia Laboratory data showed WBC count 0.4, hemoglobin 8.6, platelets 3 Sodium 134, potassium 4.0, BUN 21, creatinine 0.91, lactic acid 3.4 AST 14 ALT 22 alk phos 60 LDH 311 CRP 50.6 and procalcitonin 0.15 Urinalysis negative for infection Rapid coronavirus PCR is negative in the ER. 03/11/2020 Patient is currently in the MICU. Awake alert and oriented x3. Still requiring pressor support. Currently on antibiotics in the form of vancomycin, cefepime and fluconazole. Pulmonary, oncology is following. Laboratory data showed WBC seven 0.4, hemoglobin 7.2 and platelets 8,000. Sodium 133, potassium 3.8, bicarb is 19 and BUN 21 creatinine 1.13 calcium 6.8 albumin 2.3 Patient is also febrile with T-max 102.4. Cultures showed gram-negative bacilli. No complaints of nausea vomiting or abdominal pain or diarrhea. No dysuria or hematuria. 03/12/2020 Patient is currently lying in the bed comfortably. Blood cultures growing Pseudomonas species. Patient remains on antibiotics in the form of vancomycin, cefepime and Diflucan. Denied any complaints of nausea vomiting or abdominal pain or diarrhea. Patient was febrile with T-max 100.8 today. Patient is still tachycardic and tachypneic. Patient is off pressor support. Hemoglobin level dropped down to 6.1 today. Transfused with 1 unit of PRBC. WBC count is 0.3 and platelet count 2000. Potassium level is 3.1 and bicarb is 20 BUN 12 and creatinine 0.97 Subjective: 03/13/2020 This is a pleasant 69 years old male with AML on chemotherapy presents with neutropenic fever and found to have sepsis secondary to Pseudomonas bacteremia and septic shock needed pressors. Also he has pancytopenia secondary to chemotherapy, platelet count was 6K today anticipated 20 red blood transfusion, pulmonary and oncology team on the case.Patient is fully awake and oriented, however he feels generally weak with deconditioning Antibiotics in the form of cefepime and Diflucan. Also he is on normal saline at 1 25 mL/h 03/14/2020 Patient was transferred to the general medical floor today, he feels generally weak and tired, he had little diarrhea about 2-3 times today, there was no blood in his stool or anywhere else as per patient. All 1.6 today. AV first of Vitas looks stable. He has persistent pancytopenia male with neutropeniaand leukopenia of 0.6K, thrombocytopenia with platelet for K, he got another unit of platelet transfusion today. Hemoglobin is low and stable at 7.9. Creatinine is normal at 0.7. He remains on cefepime intravenously as well as Diflucan. Normal saline at 75 mL/h 03/15/2020 Patient feels little better today although he still generally weak. He has better appetite and he ate most of his breakfast this morning. His pancytopenia is a slightly better He remains on rectal tube and Pascual catheter is in place CT of the abdomen and pelvis showing interval development of small bilateral pleural effusion with atelectasis/effusion, hepatomegaly He remains on cefepime and Diflucan 03/16/2020 Patient is somewhat less weak however has not completely back to usual state. He states now much difference from yesterday. He had 2 bowel movements a known 4 mL Robert Juan, his rectal tube was discontinued however he denies abdominal pain. No worsening or new symptoms. C. diff been negative WBC and platelets slightly improving to 0.9K and 14 K respectively. However hemoglobin is low at 6.6 today and blood transfusion is ordered and we'll follow his hemoglobin closely. He'll call calcitonin increased from 0.25 up to 1.0. He is currently on cefepime for Pseudomonas bacteremia. He has CT of the chest showing: Left greater than right bilateral posterior compressive atelectasis versus consolidation with interval development of multifocal small areas of groundglass opacity particularly in the right upper lobe worrisome for developin g edema and/or infiltrate We will resend urinalysis and urine culture grew his Pascual catheter. Antibiotics per infectious disease and currently is on cefepime and Diflucan. We'll await infectious disease team for further recommendation. Also Patient has good appetite. We will lower his normal saline to 50 mL/h and give 1 dose of Lasix for possible fluid in the chest however patient with no respiratory symptoms today 03/17/2020 Patient continues to improve gradually and slowly, his appetite is improving also Huseyin is. However he still feels weak and he might benefit from ECF upon discharge His infection that looks improving as well. Plan for him is to get a PICC line and IV antibiotics as per infectious disease recommendation for his diagnosis of Pseudomonas bacteremia, further workup in the last few days did not reveal any source of worsening infection or an abscess. Patient still however incarcerated prognosis and will need close outpatient follow-up, patient will always be high- risk for another worsening infection given his depressed immunity. Oncology team on the case, his pancytopenia is improving slowly, WBC improved to 1.3K, hemoglobin improved to 7.9 after blood transfusion and platelets went up to 30 4K Objective - Vital Signs Vital signs: Vital Signs Temp 98.1 F 03/17/20 12:04 Pulse 85 03/17/20 12:04 Resp 18 03/17/20 12:04 BP 105/65 03/17/20 12:04 Pulse Ox 97 03/17/20 12:04 Intake & Output 03/17/20 03/17/20 03/18/20 06:59 18:59 06:59 Intake Total 570 500 Output Total 1500 Balance -930 500 Weight 81.6 kg Intake: IV 400 400 Sodium Chloride 0.9% 1, 400 400 000 ml @ 50 mls/hr IV . Q20H [facility] Rx#:[id number] Intake, IV Titration 100 Amount Cefepime 2 gm In Sodium 100 Chloride 0.9% 100 ml @ 25 mls/hr IVPB Q8HR [facility] Rx# :[id number] Oral 170 Output: Urine 1500 Stool 0 Other: Voiding Method Indwelling Catheter Indwelling Catheter - Exam -GENERAL: The patient is alert and oriented x3, not in any acute distress. Generalized weakness HEENT: Pupils are round and equally reacting to light. EOMI. No scleral icterus. No conjunctival pallor. Normocephalic, atraumatic. No pharyngeal erythema. No thyromegaly. CARDIOVASCULAR: S1 and S2 present. No murmurs, rubs, or gallops. PULMONARY: Chest is clear to auscultation, no wheezing or crackles. ABDOMEN: Soft, nontender, nondistended, normoactive bowel sounds. No palpable organomegaly. MUSCULOSKELETAL: No joint swelling or deformity. EXTREMITIES: No cyanosis, clubbing, or pedal edema. NEUROLOGICAL: Gross neurological examination did not reveal any focal deficits. SKIN: No rashes. no petechiae. - Labs CBC & Chem 7: 03/17/20 06:47 03/17/20 06:47 Labs: Abnormal Lab Results - Last 24 Hours (Table) 03/17/20 03/17/20 03/17/20 Range/Units 06:00 06:47 06:47 WBC 1.3 L* (3.8-10.6) k/uL RBC 2.49 L (4.30-5.90) m/uL Hgb 7.9 L (13.0-17.5) gm/dL Hct 21.9 L (39.0-53.0) % Plt Count 34 L D (150-450) k/uL Neutrophils # (Manual) 0.47 L* (1.3-7.7) k/uL Lymphocytes # (Manual) 0.79 L (1.0-4.8) k/uL Sodium 133 L (135-145) mmol/L BUN/Creatinine Ratio 23.75 H (12.00-20.00) Ratio Calcium 7.5 L (8.7-10.3) mg/dL Urine Protein Trace H (Negative) Urine Blood Small H (Negative) Urine RBC 7 H (0-5) /hpf Urine Mucus Rare H (None) /hpf Microbiology - Last 24 Hours (Table) 03/12/20 03:52 Blood Culture - Preliminary Blood No Growth after 120 hours 03/13/20 22:17 Blood Culture - Preliminary Blood No Growth after 72 hours Assessment and Plan Assessment: Neutropenic fever secondary to Pseudomonas bacteremia Status post Septic shock, his blood pressure is improved now Pancytopenia secondary to chemotherapy. AM, status post recent chemotherapy history of hemorrhagic stroke Plan: This is a pleasant 69 years old male who presents with septic shock secondary to Pseudomonas bacteremia. Continue with cefepime. Also is on Diflucan. Continue with gentle hydration. Follow-up recommendation by infectious disease and pulmonary/culture team. Also oncology on the case for his AML. Transfuse for hemoglobin less than 7 or platelets less than 10 K or if symptomatic as per recommendation by oncology team. Labs and medication were reviewed.. Continue same treatment. Continue with symptomatic treatment. Resume home medication. Monitor lytes and vitals. DVT and GI prophylaxis. Further recommendationsas per clinical course of the patient DVT prophylaxis: no heparin in view of his thrombocytopenia GI Prophylaxis: Ppi Prognosis is guarded
[2020-03-18 09:29] LABS: HCT 21.7 % (39.0-53.0); HGB 7.6 gm/dL (13.0-17.5); MCH 31.3 pg (25.0-35.0); MCHC 35.1 g/dL (31.0-37.0); Mean Platelet Volume 8.5; RBC 2.44 m/uL (4.30-5.90); RDW 13.7 % (11.5-15.5)
[2020-03-18 09:55] LABS: Platelet Count 49 k/uL (150-450); WBC 1.5 k/uL (3.8-10.6)
[2020-03-18] MEDS: FLUoxetine HCL 20 MG CAP PO SCH (10:32)
[2020-03-18] MEDS: PANTOPRAZOLE 40 MG TABLET PO SCH (10:33)
[2020-03-18] MEDS: CEFEPIME 2 GM in SODIUM CHLORIDE 0.9% 100 ML IVPB SCH ×3 (10:33→23:24)
[2020-03-18] MEDS: clonazePAM 1 MG TAB PO SCH ×2 (10:33→21:37)
[2020-03-18] MEDS: NOREPINEPHRINE 4 MG in SODIUM CHLORIDE 0.9% 250 ML IV SCH ×2 (10:41→16:30)
[2020-03-18] MEDS: SODIUM CHLORIDE 0.9% 1,000 ML IV SCH ×2 (10:41→17:21)
[2020-03-18] MEDS: SALT AND SODA MOUTHWASH 1,000 ML PO SCH ×5 (10:46→21:38)
[2020-03-18] MEDS: FLUCONAZOLE 100 MG TAB PO SCH (11:31)
[2020-03-18] MEDS: CHOLESTYRAMINE (WITH SUGAR) 4 GM PACKET PO SCH ×2 (11:31→17:21)
[2020-03-18 13:41] LABS: African American GFR (CKD) 107.1 (60.0-200.0); Albumin 2.8 g/dL (3.80-4.90); Albumin/Globulin Ratio 0.93 (1.60-3.17); Anion Gap 5.9 mmol/L (4.00-12.00); Calcium 7.5 mg/dL (8.7-10.3); Carbon Dioxide 24.1 mmol/L (21.6-31.8); Magnesium 2.1 mg/dL (1.5-2.4); Non-African American GFR(CKD) 92.4 (60.0-200.0); Total Bilirubin 0.5 mg/dL (0.2-1.2); Total Protein 5.8 g/dL (6.2-8.2)
[2020-03-18 15:34] LABS: Band Neutrophils % 1 %; Lymphocytes # (M) 0.65 k/uL (1.0-4.8); Monocytes # (M) 0.09 k/uL (0-1.0); Neutrophils % (M) 50 %; Nucleated Red Blood Cells 0 /100 WBC (0-0); Total Cells Counted 100
--- NOTE | 2020-03-18 22:34 | PN ---
PROGRESS NOTE DATE OF SERVICE: 03/18/2020 CHIEF COMPLAINT: Tired. Flex is seen today for followup. He feels a little tired but overall is doing better. No fever or chills. No melena, hematochezia, or hemoptysis and no nausea or vomiting. CURRENT MEDICATION: Reviewed in his electronic medical record. PHYSICAL EXAMINATION: He is alert and oriented x3. No acute distress. His temperature is 98.4. He has been afebrile. Pulse is 90, regular. Respirations 16, blood pressure 106/67, pulse ox is 96% on room air. HEENT: Normocephalic, atraumatic. No obvious icterus. NECK: Supple. CHEST: Equal expansion bilaterally. LUNGS: Clear to auscultation. HEART: Regular rhythm. ABDOMEN: Soft. No tenderness. EXTREMITIES: Reveal no edema. LYMPHATICS: No peripherally enlarged lymph node. MUSCULOSKELETAL: No percussion tenderness to sacral spine or sternum. LABORATORY DATA: WBC of 1.5, hemoglobin 7.6, hematocrit 21.7, platelets are 49. Sodium 134, potassium 4.0, chloride 104, CO2 is 24, BUN 20, creatinine 0.8. IMPRESSION: 1. 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 2. Febrile neutropenia. The patient is clinically stable at this point in time and he is afebrile and his neutrophil count starting to improve for chemotherapy-induced myelosuppression. RECOMMENDATION: 1. Continue current IV antibiotics until full recovery of his blood count. 2. Supportive transfusion as needed. 3. He will probably require a repeat bone marrow aspirate and biopsy next week to assess his response to induction chemotherapy. The above was discussed in detail with the patient. I have answered all his questions. MMODL / IJN: [id number] /
--- NOTE | 2020-03-19 00:22 | PN ---
PROGRESS NOTE DATE OF SERVICE: 03/18/2020 REASON FOR FOLLOWUP: Pseudomonas bacteremia. INTERVAL HISTORY: Patient is currently afebrile, has been breathing comfortably. The patient denies having any chest pain. No shortness of breath or cough. No nausea, vomiting, abdominal pain or diarrhea. PHYSICAL EXAMINATION: Blood pressure 106/67, pulse of 90, temperature 98.4. He is 96% on room air. General description is an elderly male lying in bed in no distress. Respiratory system: Unlabored breathing. Clear to auscultation anteriorly. HEART: S1, S2. Regular rate and rhythm. ABDOMEN: Soft. Nontender. LABORATORY DATA: Hemoglobin is 7.6, white count 1.5, BUN of 20, creatinine 0.8. DIAGNOSTIC IMPRESSION AND PLAN: Patient with Pseudomonas bacteremia, source likely vanco. However blood culture came back negative very quickly and no evidence of any pneumonia or abdominal abscess. The patient is currently Responding to Cefepime. Follow-up blood culture negative. Recommend for 2 weeks from his negative blood cultures. Continue supportive care. Thank you for your service! MMODL / IJN: [id number] /
--- NOTE | 2020-03-19 02:23 | P.PN ---
Subjective Patient is a 69-year-old male with a known history of AML currently undergoing chemotherapy, last chemotherapy yesterday, hypertension, hyperlipidemia, history of left-sided spontaneous pneumothorax, hemorrhagic stroke, left carotid stenosis 50%) of smoking and anxiety/depression presents to ER with complaints of fever started since morning today. Patient has been having fever chills and generalized weakness and malaise and fatigue. Denies any cough or sputum production. No nausea vomiting or diarrhea. No complaints of abdominal pain. No headache or dizziness or lightheadedness. In the ER initial vitals showed blood pressure 109/65 pulse is 103, respiration 18 and temperature 103.4 Chest x-ray showed mild strandy density right lung base without focal consolidation. EKG showed sinus tachycardia Laboratory data showed WBC count 0.4, hemoglobin 8.6, platelets 3 Sodium 134, potassium 4.0, BUN 21, creatinine 0.91, lactic acid 3.4 AST 14 ALT 22 alk phos 60 LDH 311 CRP 50.6 and procalcitonin 0.15 Urinalysis negative for infection Rapid coronavirus PCR is negative in the ER. 03/11/2020 Patient is currently in the MICU. Awake alert and oriented x3. Still requiring pressor support. Currently on antibiotics in the form of vancomycin, cefepime and fluconazole. Pulmonary, oncology is following. Laboratory data showed WBC seven 0.4, hemoglobin 7.2 and platelets 8,000. Sodium 133, potassium 3.8, bicarb is 19 and BUN 21 creatinine 1.13 calcium 6.8 albumin 2.3 Patient is also febrile with T-max 102.4. Cultures showed gram-negative bacilli. No complaints of nausea vomiting or abdominal pain or diarrhea. No dysuria or hematuria. 03/12/2020 Patient is currently lying in the bed comfortably. Blood cultures growing Pseudomonas species. Patient remains on antibiotics in the form of vancomycin, cefepime and Diflucan. Denied any complaints of nausea vomiting or abdominal pain or diarrhea. Patient was febrile with T-max 100.8 today. Patient is still tachycardic and tachypneic. Patient is off pressor support. Hemoglobin level dropped down to 6.1 today. Transfused with 1 unit of PRBC. WBC count is 0.3 and platelet count 2000. Potassium level is 3.1 and bicarb is 20 BUN 12 and creatinine 0.97 Subjective: 03/13/2020 This is a pleasant 69 years old male with AML on chemotherapy presents with neutropenic fever and found to have sepsis secondary to Pseudomonas bacteremia and septic shock needed pressors. Also he has pancytopenia secondary to chemotherapy, platelet count was 6K today anticipated 20 red blood transfusion, pulmonary and oncology team on the case.Patient is fully awake and oriented, however he feels generally weak with deconditioning Antibiotics in the form of cefepime and Diflucan. Also he is on normal saline at 1 25 mL/h 03/14/2020 Patient was transferred to the general medical floor today, he feels generally weak and tired, he had little diarrhea about 2-3 times today, there was no blood in his stool or anywhere else as per patient. All 1.6 today. AV first of Vitas looks stable. He has persistent pancytopenia male with neutropeniaand leukopenia of 0.6K, thrombocytopenia with platelet for K, he got another unit of platelet transfusion today. Hemoglobin is low and stable at 7.9. Creatinine is normal at 0.7. He remains on cefepime intravenously as well as Diflucan. Normal saline at 75 mL/h 03/15/2020 Patient feels little better today although he still generally weak. He has better appetite and he ate most of his breakfast this morning. His pancytopenia is a slightly better He remains on rectal tube and Pascual catheter is in place CT of the abdomen and pelvis showing interval development of small bilateral pleural effusion with atelectasis/effusion, hepatomegaly He remains on cefepime and Diflucan 03/16/2020 Patient is somewhat less weak however has not completely back to usual state. He states now much difference from yesterday. He had 2 bowel movements a known 4 mL Robert Juan, his rectal tube was discontinued however he denies abdominal pain. No worsening or new symptoms. C. diff been negative WBC and platelets slightly improving to 0.9K and 14 K respectively. However hemoglobin is low at 6.6 today and blood transfusion is ordered and we'll follow his hemoglobin closely. He'll call calcitonin increased from 0.25 up to 1.0. He is currently on cefepime for Pseudomonas bacteremia. He has CT of the chest showing: Left greater than right bilateral posterior compressive atelectasis versus consolidation with interval development of multifocal small areas of groundglass opacity particularly in the right upper lobe worrisome for developin g edema and/or infiltrate We will resend urinalysis and urine culture grew his Pascual catheter. Antibiotics per infectious disease and currently is on cefepime and Diflucan. We'll await infectious disease team for further recommendation. Also Patient has good appetite. We will lower his normal saline to 50 mL/h and give 1 dose of Lasix for possible fluid in the chest however patient with no respiratory symptoms today 03/17/2020 Patient continues to improve gradually and slowly, his appetite is improving also Huseyin is. However he still feels weak and he might benefit from ECF upon discharge His infection that looks improving as well. Plan for him is to get a PICC line and IV antibiotics as per infectious disease recommendation for his diagnosis of Pseudomonas bacteremia, further workup in the last few days did not reveal any source of worsening infection or an abscess. Patient still however incarcerated prognosis and will need close outpatient follow-up, patient will always be high- risk for another worsening infection given his depressed immunity. Oncology team on the case, his pancytopenia is improving slowly, WBC improved to 1.3K, hemoglobin improved to 7.9 after blood transfusion and platelets went up to 30 4K Date of service for this note is 03/18/2020 (although date of the front of note is 03/19/2020) Patient clinically and changed, he still feels generally weak but gradually it slowly improving. No new symptoms. No respiratory or worsening diarrhea or urinary symptoms. Pancytopenia is improving as well gradually Patient remains on cefepime for his Pseudomonas bacteremia Plan for him to go to rehab to finish his therapy with IV antibiotics as an outpatient, hopefully this coming Friday Objective - Vital Signs Vital signs: Vital Signs Temp 98.6 F 03/18/20 21:00 Pulse 88 03/18/20 21:00 Resp 18 03/18/20 21:00 BP 114/70 03/18/20 21:00 Pulse Ox 98 03/18/20 21:00 Intake & Output 03/18/20 03/18/20 03/19/20 06:59 18:59 06:59 Intake Total 370 228 250 Output Total 1000 500 500 Balance -630 -272 -250 Intake: IV 150 Sodium Chloride 0.9% 1, 150 000 ml @ 50 mls/hr IV . Q20H [facility] Rx#:[id number] Intake, IV Titration 100 Amount Cefepime 2 gm In Sodium 100 Chloride 0.9% 100 ml @ 25 mls/hr IVPB Q8HR [facility] Rx# :[id number] Oral 120 228 250 Output: Urine 1000 500 500 Stool 0 Other: Voiding Method Indwelling Catheter Indwelling Catheter Indwelling Catheter - Exam -GENERAL: The patient is alert and oriented x3, not in any acute distress. Generalized weakness HEENT: Pupils are round and equally reacting to light. EOMI. No scleral icterus. No conjunctival pallor. Normocephalic, atraumatic. No pharyngeal erythema. No thyromegaly. CARDIOVASCULAR: S1 and S2 present. No murmurs, rubs, or gallops. PULMONARY: Chest is clear to auscultation, no wheezing or crackles. ABDOMEN: Soft, nontender, nondistended, normoactive bowel sounds. No palpable organomegaly. MUSCULOSKELETAL: No joint swelling or deformity. EXTREMITIES: No cyanosis, clubbing, or pedal edema. NEUROLOGICAL: Gross neurological examination did not reveal any focal deficits. SKIN: No rashes. no petechiae. - Labs CBC & Chem 7: 03/18/20 08:18 03/18/20 08:18 Labs: Abnormal Lab Results - Last 24 Hours (Table) 03/18/20 03/18/20 Range/Units 08:18 08:18 WBC 1.5 L (3.8-10.6) k/uL RBC 2.44 L (4.30-5.90) m/uL Hgb 7.6 L (13.0-17.5) gm/dL Hct 21.7 L (39.0-53.0) % Plt Count 49 L (150-450) k/uL Neutrophils # (Manual) 0.70 L (1.3-7.7) k/uL Lymphocytes # (Manual) 0.65 L (1.0-4.8) k/uL Sodium 134 L (135-145) mmol/L BUN/Creatinine Ratio 25.00 H (12.00-20.00) Ratio Calcium 7.5 L (8.7-10.3) mg/dL Total Protein 5.8 L (6.2-8.2) g/dL Albumin 2.80 L (3.80-4.90) g/dL Albumin/Globulin Ratio 0.93 L (1.60-3.17) g/dL Microbiology - Last 24 Hours (Table) 03/13/20 22:17 Blood Culture - Preliminary Blood No Growth after 120 hours 03/18/20 17:26 Stool Culture - Preliminary Stool 03/12/20 03:52 Blood Culture - Final Blood No Growth after 144 hours Assessment and Plan Assessment: Neutropenic fever secondary to Pseudomonas bacteremia Status post Septic shock, his blood pressure is improved now Pancytopenia secondary to chemotherapy. AM, status post recent chemotherapy history of hemorrhagic stroke Plan: This is a pleasant 69 years old male who presents with septic shock secondary to Pseudomonas bacteremia. Continue with cefepime. Also is on Diflucan. Continue with gentle hydration. Follow-up recommendation by infectious disease and pulmonary/culture team. Also oncology on the case for his AML. Transfuse for hemoglobin less than 7 or platelets less than 10 K or if symptomatic as per recommendation by oncology team. Labs and medication were reviewed.. Continue same treatment. Continue with symptomatic treatment. Resume home medication. Monitor lytes and vitals. DVT and GI prophylaxis. Further recommendationsas per clinical course of the patient DVT prophylaxis: no heparin in view of his thrombocytopenia GI Prophylaxis: Ppi Prognosis is guarded
[2020-03-19] MEDS: SALT AND SODA MOUTHWASH 1,000 ML PO SCH ×6 (05:45→23:19)
[2020-03-19 06:57] LABS: HCT 21.1 % (39.0-53.0); HGB 7.4 gm/dL (13.0-17.5); MCH 31.5 pg (25.0-35.0); MCHC 35.3 g/dL (31.0-37.0); MCV 89.1 fL (80.0-100.0); Mean Platelet Volume 8.2; RBC 2.36 m/uL (4.30-5.90); RDW 13.7 % (11.5-15.5); WBC 1.5 k/uL (3.8-10.6)
[2020-03-19 07:18] LABS: Platelet Count 66 k/uL (150-450)
[2020-03-19 09:14] LABS: Lymphocytes # (M) 0.87 k/uL (1.0-4.8); Monocytes # (M) 0.03 k/uL (0-1.0); Neutrophils % (M) 40 %; Nucleated Red Blood Cells 0 /100 WBC (0-0); Total Cells Counted 100
[2020-03-19] MEDS: FLUoxetine HCL 20 MG CAP PO SCH (09:55)
[2020-03-19] MEDS: CEFEPIME 2 GM in SODIUM CHLORIDE 0.9% 100 ML IVPB SCH ×3 (09:55→23:18)
[2020-03-19] MEDS: CHOLESTYRAMINE (WITH SUGAR) 4 GM PACKET PO SCH ×2 (09:55→16:53)
[2020-03-19] MEDS: clonazePAM 1 MG TAB PO SCH ×2 (09:56→22:17)
[2020-03-19] MEDS: PANTOPRAZOLE 40 MG TABLET PO SCH (09:56)
[2020-03-19] MEDS: FLUCONAZOLE 100 MG TAB PO SCH (13:15)
[2020-03-19] MEDS: SODIUM CHLORIDE 0.9% 1,000 ML IV SCH (13:16)
--- NOTE | 2020-03-19 21:27 | P.PN ---
Subjective Patient is a 69-year-old male with a known history of AML currently undergoing chemotherapy, last chemotherapy yesterday, hypertension, hyperlipidemia, history of left-sided spontaneous pneumothorax, hemorrhagic stroke, left carotid stenosis 50%) of smoking and anxiety/depression presents to ER with complaints of fever started since morning today. Patient has been having fever chills and generalized weakness and malaise and fatigue. Denies any cough or sputum production. No nausea vomiting or diarrhea. No complaints of abdominal pain. No headache or dizziness or lightheadedness. In the ER initial vitals showed blood pressure 109/65 pulse is 103, respiration 18 and temperature 103.4 Chest x-ray showed mild strandy density right lung base without focal consolidation. EKG showed sinus tachycardia Laboratory data showed WBC count 0.4, hemoglobin 8.6, platelets 3 Sodium 134, potassium 4.0, BUN 21, creatinine 0.91, lactic acid 3.4 AST 14 ALT 22 alk phos 60 LDH 311 CRP 50.6 and procalcitonin 0.15 Urinalysis negative for infection Rapid coronavirus PCR is negative in the ER. 03/11/2020 Patient is currently in the MICU. Awake alert and oriented x3. Still requiring pressor support. Currently on antibiotics in the form of vancomycin, cefepime and fluconazole. Pulmonary, oncology is following. Laboratory data showed WBC seven 0.4, hemoglobin 7.2 and platelets 8,000. Sodium 133, potassium 3.8, bicarb is 19 and BUN 21 creatinine 1.13 calcium 6.8 albumin 2.3 Patient is also febrile with T-max 102.4. Cultures showed gram-negative bacilli. No complaints of nausea vomiting or abdominal pain or diarrhea. No dysuria or hematuria. 03/12/2020 Patient is currently lying in the bed comfortably. Blood cultures growing Pseudomonas species. Patient remains on antibiotics in the form of vancomycin, cefepime and Diflucan. Denied any complaints of nausea vomiting or abdominal pain or diarrhea. Patient was febrile with T-max 100.8 today. Patient is still tachycardic and tachypneic. Patient is off pressor support. Hemoglobin level dropped down to 6.1 today. Transfused with 1 unit of PRBC. WBC count is 0.3 and platelet count 2000. Potassium level is 3.1 and bicarb is 20 BUN 12 and creatinine 0.97 Subjective: 03/13/2020 This is a pleasant 69 years old male with AML on chemotherapy presents with neutropenic fever and found to have sepsis secondary to Pseudomonas bacteremia and septic shock needed pressors. Also he has pancytopenia secondary to chemotherapy, platelet count was 6K today anticipated 20 red blood transfusion, pulmonary and oncology team on the case.Patient is fully awake and oriented, however he feels generally weak with deconditioning Antibiotics in the form of cefepime and Diflucan. Also he is on normal saline at 1 25 mL/h 03/14/2020 Patient was transferred to the general medical floor today, he feels generally weak and tired, he had little diarrhea about 2-3 times today, there was no blood in his stool or anywhere else as per patient. All 1.6 today. AV first of Vitas looks stable. He has persistent pancytopenia male with neutropeniaand leukopenia of 0.6K, thrombocytopenia with platelet for K, he got another unit of platelet transfusion today. Hemoglobin is low and stable at 7.9. Creatinine is normal at 0.7. He remains on cefepime intravenously as well as Diflucan. Normal saline at 75 mL/h 03/15/2020 Patient feels little better today although he still generally weak. He has better appetite and he ate most of his breakfast this morning. His pancytopenia is a slightly better He remains on rectal tube and Pascual catheter is in place CT of the abdomen and pelvis showing interval development of small bilateral pleural effusion with atelectasis/effusion, hepatomegaly He remains on cefepime and Diflucan 03/16/2020 Patient is somewhat less weak however has not completely back to usual state. He states now much difference from yesterday. He had 2 bowel movements a known 4 mL Robert Juan, his rectal tube was discontinued however he denies abdominal pain. No worsening or new symptoms. C. diff been negative WBC and platelets slightly improving to 0.9K and 14 K respectively. However hemoglobin is low at 6.6 today and blood transfusion is ordered and we'll follow his hemoglobin closely. He'll call calcitonin increased from 0.25 up to 1.0. He is currently on cefepime for Pseudomonas bacteremia. He has CT of the chest showing: Left greater than right bilateral posterior compressive atelectasis versus consolidation with interval development of multifocal small areas of groundglass opacity particularly in the right upper lobe worrisome for developin g edema and/or infiltrate We will resend urinalysis and urine culture grew his Pascual catheter. Antibiotics per infectious disease and currently is on cefepime and Diflucan. We'll await infectious disease team for further recommendation. Also Patient has good appetite. We will lower his normal saline to 50 mL/h and give 1 dose of Lasix for possible fluid in the chest however patient with no respiratory symptoms today 03/17/2020 Patient continues to improve gradually and slowly, his appetite is improving also Huseyin is. However he still feels weak and he might benefit from ECF upon discharge His infection that looks improving as well. Plan for him is to get a PICC line and IV antibiotics as per infectious disease recommendation for his diagnosis of Pseudomonas bacteremia, further workup in the last few days did not reveal any source of worsening infection or an abscess. Patient still however incarcerated prognosis and will need close outpatient follow-up, patient will always be high- risk for another worsening infection given his depressed immunity. Oncology team on the case, his pancytopenia is improving slowly, WBC improved to 1.3K, hemoglobin improved to 7.9 after blood transfusion and platelets went up to 30 4K Date of service for this note is 03/18/2020 (although date of the front of note is 03/19/2020) Patient clinically and changed, he still feels generally weak but gradually it slowly improving. No new symptoms. No respiratory or worsening diarrhea or urinary symptoms. Pancytopenia is improving as well gradually Patient remains on cefepime for his Pseudomonas bacteremia Plan for him to go to rehab to finish his therapy with IV antibiotics as an outpatient, hopefully this coming Friday03/20/2020 Patient is lying in bed comfortable, no new complaints Patient pending placement, I discussed the case with the patient today and he agreed to go to rehab He has left upper extremity PICC line clocked it needed to be replaced, probably tomorrow Objective - Vital Signs Vital signs: Vital Signs Temp 98.8 F 03/19/20 13:00 Pulse 84 03/19/20 13:00 Resp 16 03/19/20 13:00 BP 100/62 03/19/20 13:00 Pulse Ox 96 03/19/20 13:00 Intake & Output 03/19/20 03/19/20 03/20/20 06:59 18:59 06:59 Intake Total 250 600 Output Total 850 1100 Balance -600 -500 Intake: Intake, IV Titration 600 Amount Cefepime 2 gm In Sodium 200 Chloride 0.9% 100 ml @ 25 mls/hr IVPB Q8HR [facility] Rx# :[id number] Sodium Chloride 0.9% 1, 400 000 ml @ 50 mls/hr IV . Q20H [facility] Rx#:[id number] Oral 250 Output: Urine 850 1100 Other: Voiding Method Indwelling Catheter Indwelling Catheter - Exam -GENERAL: The patient is alert and oriented x3, not in any acute distress. Generalized weakness HEENT: Pupils are round and equally reacting to light. EOMI. No scleral icterus. No conjunctival pallor. Normocephalic, atraumatic. No pharyngeal erythema. No thyromegaly. CARDIOVASCULAR: S1 and S2 present. No murmurs, rubs, or gallops. PULMONARY: Chest is clear to auscultation, no wheezing or crackles. ABDOMEN: Soft, nontender, nondistended, normoactive bowel sounds. No palpable organomegaly. MUSCULOSKELETAL: No joint swelling or deformity. EXTREMITIES: No cyanosis, clubbing, or pedal edema. NEUROLOGICAL: Gross neurological examination did not reveal any focal deficits. SKIN: No rashes. no petechiae. - Labs CBC & Chem 7: 03/19/20 05:38 03/18/20 08:18 Labs: Abnormal Lab Results - Last 24 Hours (Table) 03/19/20 03/19/20 Range/Units 05:38 05:38 WBC 1.5 L (3.8-10.6) k/uL RBC 2.36 L (4.30-5.90) m/uL Hgb 7.4 L (13.0-17.5) gm/dL Hct 21.1 L (39.0-53.0) % Plt Count 66 L (150-450) k/uL Neutrophils # (Manual) 0.60 L (1.3-7.7) k/uL Lymphocytes # (Manual) 0.87 L (1.0-4.8) k/uL Procalcitonin 0.34 H (0.02-0.09) ng/mL Microbiology - Last 24 Hours (Table) 03/13/20 22:17 Blood Culture - Preliminary Blood No Growth after 120 hours 03/18/20 17:26 Stool Culture - Preliminary Stool Assessment and Plan Assessment: Neutropenic fever secondary to Pseudomonas bacteremia Status post Septic shock, his blood pressure is improved now Pancytopenia secondary to chemotherapy. AM, status post recent chemotherapy history of hemorrhagic stroke Plan: This is a pleasant 69 years old male who presents with septic shock secondary to Pseudomonas bacteremia. Continue with cefepime. Also is on Diflucan. Continue with gentle hydration. Follow-up recommendation by infectious disease and pulmonary/culture team. Also oncology on the case for his AML. Transfuse for hemoglobin less than 7 or platelets less than 10 K or if symptomatic as per recommendation by oncology team. Labs and medication were reviewed.. Continue same treatment. Continue with symptomatic treatment. Resume home medication. Monitor lytes and vitals. DVT and GI prophylaxis. Further recommendationsas per clinical course of the patient DVT prophylaxis: no heparin in view of his thrombocytopenia GI Prophylaxis: Ppi Prognosis is guarded
--- NOTE | 2020-03-19 23:15 | P.PN ---
Subjective Progress Note Date: 03/19/20 Principal diagnosis: AML neutropenic fever feeling better, anxious to go home Objective - Vital Signs Vital signs: Vital Signs Temp 98.8 F 03/19/20 13:00 Pulse 84 03/19/20 13:00 Resp 16 03/19/20 13:00 BP 100/62 03/19/20 13:00 Pulse Ox 96 03/19/20 13:00 Intake & Output 03/19/20 03/19/20 03/20/20 06:59 18:59 06:59 Intake Total 250 600 Output Total 850 1100 Balance -600 -500 Intake: Intake, IV Titration 600 Amount Cefepime 2 gm In Sodium 200 Chloride 0.9% 100 ml @ 25 mls/hr IVPB Q8HR [facility] Rx# :[id number] Sodium Chloride 0.9% 1, 400 000 ml @ 50 mls/hr IV . Q20H [facility] Rx#:[id number] Oral 250 Output: Urine 850 1100 Other: Voiding Method Indwelling Catheter Indwelling Catheter Indwelling Catheter - Exam - Constitutional General appearance: Present: average body habitus, cooperative, no acute distress - EENT Eyes: Present: anicteric sclerae, EOMI ENT: Present: hearing grossly normal, normal oropharynx - Respiratory Respiratory: bilateral: CTA, diminished (bases) - Cardiovascular Rhythm: regular Heart sounds: normal: S1, S2 Abnormal Heart Sounds: Absent: systolic murmur, diastolic murmur, rub, S3 Gallop, S4 Gallop, click, other - Peripheral edema leg Peripheral Edema: bilateral: None - Gastrointestinal Gastrointestinal Comment(s): no rebound General gastrointestinal: Present: normal bowel sounds, soft - Neurologic Neurologic: Present: CNII-XII intact - Musculoskeletal Musculoskeletal: Present: generalized weakness - Psychiatric Psychiatric: Present: A&O x's 3, appropriate affect, intact judgment & insight - Labs CBC & Chem 7: 03/19/20 05:38 03/18/20 08:18 Labs: Abnormal Lab Results - Last 24 Hours (Table) 03/19/20 03/19/20 Range/Units 05:38 05:38 WBC 1.5 L (3.8-10.6) k/uL RBC 2.36 L (4.30-5.90) m/uL Hgb 7.4 L (13.0-17.5) gm/dL Hct 21.1 L (39.0-53.0) % Plt Count 66 L (150-450) k/uL Neutrophils # (Manual) 0.60 L (1.3-7.7) k/uL Lymphocytes # (Manual) 0.87 L (1.0-4.8) k/uL Procalcitonin 0.34 H (0.02-0.09) ng/mL Microbiology - Last 24 Hours (Table) 03/13/20 22:17 Blood Culture - Preliminary Blood No Growth after 120 hours 03/18/20 17:26 Stool Culture - Preliminary Stool Assessment and Plan Plan: - Imaging and Cardiology CT scan - abdomen: report reviewed (bibasilar atelectasis, hepatomegaly) CT scan - pelvis: report reviewed Venous US: report reviewed (no DVT or superficial thrombosis in the left upper extremity) Assessment and Plan Pseudomonal bacteremia - Abx and Treatment per Infectious Disease following. 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 - Pending follow-up bone marrow biopsy to confirm remission. - Need to wait until bacteremia is resolved or patient is significantly more stable to schedule Pancytopenia due to antineoplastic chemotherapy Irradiated BLOOD Products Only Transfuse to keep hemoglobin 7 or higher. Stable no transfusion needed today Platelets will continue to be transfused if symptomatic or less than 10,000. No G-CSF as patient is not a confirmed remission. Pancytopenia is also being exacerbated by acute bacteremia. Patient is on antibiotics and being followed by ID Plan: Continue aggressive supportive care and follow-up in office with primary oncologist after discharge.
--- NOTE | 2020-03-20 05:38 | PN ---
PROGRESS NOTE DATE OF SERVICE: 03/19/2020 REASON FOR FOLLOWUP: Pseudomonas bacteremia. INTERVAL HISTORY: The patient is currently afebrile. The patient is feeling better. Breathing comfortably. The patient denies having any chest pain. No shortness of breath or cough. No nausea, no vomiting. No abdominal pain or diarrhea. PHYSICAL EXAMINATION: Blood pressure 100/62 with a pulse of 84, temperature 98.8. He is 96% on room air. General description is an elderly male lying in bed in no distress. RESPIRATORY SYSTEM: Unlabored breathing, clear to auscultation anteriorly. HEART: S1, S2. Regular rate and rhythm. ABDOMEN: Soft, no tenderness. LABS: Hemoglobin 7.4, white count 1.5. Procalcitonin 0.34. DIAGNOSTIC IMPRESSION AND PLAN: Patient with Pseudomonas aeruginosa bacteremia. Follow-up blood culture on 03/12 has been negative. Patient is currently on cefepime. He will need another week to finish his 2 weeks from his negative blood cultures and continue supportive care. MMODL / IJN: [id number] /
[2020-03-20] MEDS: SALT AND SODA MOUTHWASH 1,000 ML PO SCH ×5 (05:49→23:02)
[2020-03-20] MEDS: CEFEPIME 2 GM in SODIUM CHLORIDE 0.9% 100 ML IVPB SCH ×3 (09:21→23:02)
[2020-03-20] MEDS: clonazePAM 1 MG TAB PO SCH ×2 (09:22→20:54)
[2020-03-20] MEDS: FLUoxetine HCL 20 MG CAP PO SCH (09:22)
[2020-03-20] MEDS: PANTOPRAZOLE 40 MG TABLET PO SCH (09:22)
[2020-03-20] MEDS: CHOLESTYRAMINE (WITH SUGAR) 4 GM PACKET PO SCH ×2 (09:22→17:50)
[2020-03-20] MEDS: FLUCONAZOLE 100 MG TAB PO SCH (11:22)
[2020-03-20] MEDS: SODIUM CHLORIDE 0.9% 1,000 ML IV SCH (13:24)
--- NOTE | 2020-03-20 16:36 | PN ---
PROGRESS NOTE DATE OF SERVICE: 03/20/2020 REASON FOR FOLLOWUP: MRSA bacteremia. INTERVAL HISTORY: The patient is currently afebrile. The patient is feeling better, breathing comfortably. The patient denies having chest pain, no cough, no diarrhea. PHYSICAL EXAMINATION: Blood pressure is 124/59, pulse is 86, temperature 98.7. General description is an elderly male, lying in bed in no distress. RESPIRATORY SYSTEM: Unlabored breathing, clear to auscultation anteriorly. HEART: S1, S2. Regular rate and rhythm. ABDOMEN: Soft, no tenderness. LABS: is 0.2, blood culture has been negative. DIAGNOSTIC IMPRESSION AND PLAN: Patient with Pseudomonas bacteremia, currently responding to Zosyn to continue for another 10 days to , negative culture and close outpatient followup. MMODL / IJN: [id number] /
--- NOTE | 2020-03-20 21:33 | P.PN ---
Subjective Patient is a 69-year-old male with a known history of AML currently undergoing chemotherapy, last chemotherapy yesterday, hypertension, hyperlipidemia, history of left-sided spontaneous pneumothorax, hemorrhagic stroke, left carotid stenosis 50%) of smoking and anxiety/depression presents to ER with complaints of fever started since morning today. Patient has been having fever chills and generalized weakness and malaise and fatigue. Denies any cough or sputum production. No nausea vomiting or diarrhea. No complaints of abdominal pain. No headache or dizziness or lightheadedness. In the ER initial vitals showed blood pressure 109/65 pulse is 103, respiration 18 and temperature 103.4 Chest x-ray showed mild strandy density right lung base without focal consolidation. EKG showed sinus tachycardia Laboratory data showed WBC count 0.4, hemoglobin 8.6, platelets 3 Sodium 134, potassium 4.0, BUN 21, creatinine 0.91, lactic acid 3.4 AST 14 ALT 22 alk phos 60 LDH 311 CRP 50.6 and procalcitonin 0.15 Urinalysis negative for infection Rapid coronavirus PCR is negative in the ER. 03/11/2020 Patient is currently in the MICU. Awake alert and oriented x3. Still requiring pressor support. Currently on antibiotics in the form of vancomycin, cefepime and fluconazole. Pulmonary, oncology is following. Laboratory data showed WBC seven 0.4, hemoglobin 7.2 and platelets 8,000. Sodium 133, potassium 3.8, bicarb is 19 and BUN 21 creatinine 1.13 calcium 6.8 albumin 2.3 Patient is also febrile with T-max 102.4. Cultures showed gram-negative bacilli. No complaints of nausea vomiting or abdominal pain or diarrhea. No dysuria or hematuria. 03/12/2020 Patient is currently lying in the bed comfortably. Blood cultures growing Pseudomonas species. Patient remains on antibiotics in the form of vancomycin, cefepime and Diflucan. Denied any complaints of nausea vomiting or abdominal pain or diarrhea. Patient was febrile with T-max 100.8 today. Patient is still tachycardic and tachypneic. Patient is off pressor support. Hemoglobin level dropped down to 6.1 today. Transfused with 1 unit of PRBC. WBC count is 0.3 and platelet count 2000. Potassium level is 3.1 and bicarb is 20 BUN 12 and creatinine 0.97 Subjective: 03/13/2020 This is a pleasant 69 years old male with AML on chemotherapy presents with neutropenic fever and found to have sepsis secondary to Pseudomonas bacteremia and septic shock needed pressors. Also he has pancytopenia secondary to chemotherapy, platelet count was 6K today anticipated 20 red blood transfusion, pulmonary and oncology team on the case.Patient is fully awake and oriented, however he feels generally weak with deconditioning Antibiotics in the form of cefepime and Diflucan. Also he is on normal saline at 1 25 mL/h 03/14/2020 Patient was transferred to the general medical floor today, he feels generally weak and tired, he had little diarrhea about 2-3 times today, there was no blood in his stool or anywhere else as per patient. All 1.6 today. AV first of Vitas looks stable. He has persistent pancytopenia male with neutropeniaand leukopenia of 0.6K, thrombocytopenia with platelet for K, he got another unit of platelet transfusion today. Hemoglobin is low and stable at 7.9. Creatinine is normal at 0.7. He remains on cefepime intravenously as well as Diflucan. Normal saline at 75 mL/h 03/15/2020 Patient feels little better today although he still generally weak. He has better appetite and he ate most of his breakfast this morning. His pancytopenia is a slightly better He remains on rectal tube and Pascual catheter is in place CT of the abdomen and pelvis showing interval development of small bilateral pleural effusion with atelectasis/effusion, hepatomegaly He remains on cefepime and Diflucan 03/16/2020 Patient is somewhat less weak however has not completely back to usual state. He states now much difference from yesterday. He had 2 bowel movements a known 4 mL Robert Juan, his rectal tube was discontinued however he denies abdominal pain. No worsening or new symptoms. C. diff been negative WBC and platelets slightly improving to 0.9K and 14 K respectively. However hemoglobin is low at 6.6 today and blood transfusion is ordered and we'll follow his hemoglobin closely. He'll call calcitonin increased from 0.25 up to 1.0. He is currently on cefepime for Pseudomonas bacteremia. He has CT of the chest showing: Left greater than right bilateral posterior compressive atelectasis versus consolidation with interval development of multifocal small areas of groundglass opacity particularly in the right upper lobe worrisome for developin g edema and/or infiltrate We will resend urinalysis and urine culture grew his Pascual catheter. Antibiotics per infectious disease and currently is on cefepime and Diflucan. We'll await infectious disease team for further recommendation. Also Patient has good appetite. We will lower his normal saline to 50 mL/h and give 1 dose of Lasix for possible fluid in the chest however patient with no respiratory symptoms today 03/17/2020 Patient continues to improve gradually and slowly, his appetite is improving also Huseyin is. However he still feels weak and he might benefit from ECF upon discharge His infection that looks improving as well. Plan for him is to get a PICC line and IV antibiotics as per infectious disease recommendation for his diagnosis of Pseudomonas bacteremia, further workup in the last few days did not reveal any source of worsening infection or an abscess. Patient still however incarcerated prognosis and will need close outpatient follow-up, patient will always be high- risk for another worsening infection given his depressed immunity. Oncology team on the case, his pancytopenia is improving slowly, WBC improved to 1.3K, hemoglobin improved to 7.9 after blood transfusion and platelets went up to 30 4K Date of service for this note is 03/18/2020 (although date of the front of note is 03/19/2020) Patient clinically and changed, he still feels generally weak but gradually it slowly improving. No new symptoms. No respiratory or worsening diarrhea or urinary symptoms. Pancytopenia is improving as well gradually Patient remains on cefepime for his Pseudomonas bacteremia Plan for him to go to rehab to finish his therapy with IV antibiotics as an outpatient, hopefully this coming Friday03/20/2020 Patient is lying in bed comfortable, no new complaints Patient pending placement, I discussed the case with the patient today and he agreed to go to rehab, however it changed his mind and he does not want to go to inpatient rehab and also refusing home health care as well because the upgrade from the covid pandemic, he states that his is a nurse aide and she can help him with IV infusion antibiotic at home and that he is willing to do a follow-up as an outpatient and he stated He has left upper extremity PICC line Discontinue Pascual catheter and 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 Q20H [facility] Rx#:[id number] Intake, IV Titration 200 Amount Cefepime 2 gm In Sodium 200 Chloride 0.9% 100 ml @ 25 mls/hr IVPB Q8HR [facility] Rx# :[id number] Oral 120 Output: Urine 125 1500 Uretheral (Pascual) 1200 Other: Voiding Method Indwelling Catheter Indwelling Catheter # Voids 1 - Exam -GENERAL: The patient is alert and oriented x3, not in any acute distress. Gene ralized weakness HEENT: Pupils are round and equally reacting to light. EOMI. No scleral icterus. No conjunctival pallor. Normocephalic, atraumatic. No pharyngeal erythema. No thyromegaly. CARDIOVASCULAR: S1 and S2 present. No murmurs, rubs, or gallops. PULMONARY: Chest is clear to auscultation, no wheezing or crackles. ABDOMEN: Soft, nontender, nondistended, normoactive bowel sounds. No palpable organomegaly. MUSCULOSKELETAL: No joint swelling or deformity. EXTREMITIES: No cyanosis, clubbing, or pedal edema. NEUROLOGICAL: Gross neurological examination did not reveal any focal deficits. SKIN: No rashes. no petechiae. - Labs CBC & Chem 7: 03/19/20 05:38 03/18/20 08:18 Labs: Abnormal Lab Results - Last 24 Hours (Table) 03/20/20 Range/Units 05:47 Procalcitonin 0.26 H (0.02-0.09) ng/mL Microbiology - Last 24 Hours (Table) 03/18/20 17:26 Stool Culture - Preliminary Stool 03/13/20 22:17 Blood Culture - Final Blood No Growth after 144 hours Assessment and Plan Assessment: Neutropenic fever secondary to Pseudomonas bacteremia Status post Septic shock, his blood pressure is improved now Pancytopenia secondary to chemotherapy. AM, status post recent chemotherapy history of hemorrhagic stroke Plan: This is a pleasant 69 years old male who presents with septic shock secondary to Pseudomonas bacteremia. Continue with cefepime. Also is on Diflucan. Continue with gentle hydration. Follow-up recommendation by infectious disease and pulmonary/culture team. Also oncology on the case for his AML. Transfuse for hemoglobin less than 7 or platelets less than 10 K or if symptomatic as per recommendation by oncology team. Labs and medication were reviewed.. Continue same treatment. Continue with symptomatic treatment. Resume home medication. Monitor lytes and vitals. DVT and GI prophylaxis. Further recommendationsas per clinical course of the patient DVT prophylaxis: no heparin in view of his thrombocytopenia GI Prophylaxis: Ppi Prognosis is guarded
[2020-03-21] MEDS: SODIUM CHLORIDE 0.9% 1,000 ML IV SCH (04:04)
[2020-03-21] MEDS: SALT AND SODA MOUTHWASH 1,000 ML PO SCH ×3 (04:55→15:10)
[2020-03-21 08:04] VITALS: BP 105/63; PULSE 85; RESP 20; TEMP 98.3
[2020-03-21] MEDS: CEFEPIME 2 GM in SODIUM CHLORIDE 0.9% 100 ML IVPB SCH ×2 (08:43→15:10)
[2020-03-21] MEDS: clonazePAM 1 MG TAB PO SCH (08:44)
[2020-03-21] MEDS: CHOLESTYRAMINE (WITH SUGAR) 4 GM PACKET PO SCH (08:44)
[2020-03-21] MEDS: PANTOPRAZOLE 40 MG TABLET PO SCH (08:44)
[2020-03-21] MEDS: FLUoxetine HCL 20 MG CAP PO SCH (08:44)
[2020-03-21] MEDS: FLUCONAZOLE 100 MG TAB PO SCH (12:08)
--- NOTE | 2020-03-21 14:22 | PN ---
PROGRESS NOTE DATE OF SERVICE: 03/21/2020 REASON FOR FOLLOWUP: Pseudomonas bacteremia. The patient is currently afebrile. The patient is breathing comfortably. Patient denies having any chest pain or any cough. No nausea, no vomiting,no abdominal pain, no diarrhea. EXAMINATION: Five hundred sixty-three, pulse of 85, temperature 98.3 97 the patient is an elderly male up in the chair in no distress respiratory system: Unlabored breathing clear to auscultation anteriorly heart S1, S2. Regular rate and rhythm. LABS: No new labs have been obtained. Followup blood culture has been negative. DIAGNOSTIC IMPRESSION AND PLAN: Patient with Pseudomonas bacteremia in this did have extensive workup. Follow-up blood culture has been negative pending for total of 2 weeks from negative blood culture and close outpatient followup. MMODL / IJN: [id number] /
--- NOTE | 2020-03-22 02:13 | P.DS ---
Providers Date of admission: 03/10/20 13:57 Attending physician: Katelynn Holbrook Consults: 03/10/20 14:00 Consult Physician Urgent Consulting Provider: Edwin Rees Consult Reason/Comments: Oncological care Do you want consulting provider notified?: Already Contacted 03/10/20 16:23 Consult Physician Routine Consulting Provider: Jad Mathur Consult Reason/Comments: Febrile neutropenia, sepsis Do you want consulting provider notified?: Yes 03/10/20 18:41 Consult Physician Urgent Consulting Provider: Elva Morrell Consult Reason/Comments: neutropenic sepsis, Eval for ICU care Do you want consulting provider notified?: Yes 03/10/20 19:16 Consult Physician Urgent Consulting Provider: Efraín Simon Consult Reason/Comments: hypotension/ICU management Do you want consulting provider notified?: Yes Primary care physician: [facility] Course: diagnoses: Neutropenic fever secondary to Pseudomonas bacteremia Status post Septic shock, his blood pressure is improved now Pancytopenia secondary to chemotherapy. AM, status post recent chemotherapy history of hemorrhagic stroke Hospital course Patient is a 69-year-old male with a known history of AML currently undergoing c hemotherapy, last chemotherapy yesterday, hypertension, hyperlipidemia, history of left-sided spontaneous pneumothorax, hemorrhagic stroke, left carotid stenosis 50%, anxiety/depression presents to ER with complaints of fever Patient found to have sepsis secondary to Pseudomonas bacteremia, patient has been evaluated by hematology/oncology team and infectious disease team, he has been treated with cefepime and Diflucan. He showed interval improvement in his fever improved. His significant rangel cytopenia is much improved, his WBC on the discharge is 1.5K, platelets 60 6K and hemoglobin is stable at 7.4. Patient feels generally weak and he may benefit from ECF for rehab. Also patient will need IV antibiotics for 2 weeks with cefepime as per recommendation by infectious disease team Patient remains clinically stable, no diarrhea, hysterectomy and I 12. No abdominal pain, no chest pain or dyspnea. Is fully awake and oriented Patient was cleared for discharge by infectious disease and oncology teams Patient on the day of discharge she refuses to go to inpatient rehab and he wants to go for outpatient rehab, risks benefits are explained for him it was so adamant to go home he states that his is a nurse aide and she will help her with IV antibiotics and that he is willing to do blood test once weekly as instructed with his primary care doctor and his oncologist Problems and management plan were discussed with the patient and he verbalized understanding and acceptance Patient was found stable and can be discharged home however he needs follow-up as an outpatient. Patient was instructed to follow up with PCP Dr. Lemus within one week and patient agrees with the appointments made for him , and his management services technician Dr. Rees on 03/[address] Mathur from [facility] 03/28, Also I discussed the case with the watch case polisher Nery Perkins and she confirmed to me that his antibiotic recommended by Dr. Mathur for 10 days is provided and when he is done he will come to the [facility] office to take his PICC line out, patient was informed and he verbalized understanding and acceptance Physical exam -Gen: patient is a AAOx3, no distress. Generally weak CVS: S1-S2, RRR, no murmur Lungs: B/L CTA, no wheezing Abdomen: soft, no distention, no tenderness, positive bowel sounds -Extremity: no leg edema or induration. Left arm PICC line is in place Time spent more than 35 minutes Plan - Discharge Summary Discharge Rx Participant: No New Discharge Prescriptions: New Cefepime [Maxipime] 2 gm IVPB Q8HR vial Continue hydrOXYzine pamoate [Vistaril] 50 mg PO TID clonazePAM [KlonoPIN] 1 mg PO BID FLUoxetine HCL [PROzac] 40 mg PO DAILY Atorvastatin [Lipitor] 40 mg PO DAILY Acetaminophen [Tylenol] 650 mg PO Q4H PRN PRN Reason: Pain Or Fever > 100.5 Omeprazole 20 mg PO DAILY Discontinued Gabapentin [Neurontin] 400 mg PO TID Ondansetron [Zofran] 4 mg PO Q6H PRN PRN Reason: Nausea lisinopriL [Zestril] 5 mg PO DAILY Amoxic-Pot Clav 875-125Mg [Augmentin 875-125] 1 tab PO Q12HR #14 tab Fluconazole [Diflucan] 100 mg PO DAILY #7 tab predniSONE See Taper PO DIRECTED #30 tab Discharge Medication List Atorvastatin [Lipitor] 40 mg PO DAILY 01/09/20 [History] FLUoxetine HCL [PROzac] 40 mg PO DAILY 01/09/20 [History] clonazePAM [KlonoPIN] 1 mg PO BID 01/09/20 [History] hydrOXYzine pamoate [Vistaril] 50 mg PO TID 01/09/20 [History] Acetaminophen [Tylenol] 650 mg PO Q4H PRN 02/26/20 [History] Omeprazole 20 mg PO DAILY 02/26/20 [History] Cefepime [Maxipime] 2 gm IVPB Q8HR vial 03/21/20 [Rx] Follow up Appointment(s)/Referral(s): Edwin Rees MD [STAFF PHYSICIAN] - 03/23/20 4:00 pm [facility],Infusion [NON-STAFF] - 03/22/20 9:00 am (Teach and train will happen in office. Please make sure attends to learn. ) Fady Lemus DO [Primary Care Provider] - 03/24/20 3:00 pm Jad Mathur MD [STAFF PHYSICIAN] - 03/28/20 10:00 am (This is a tele health appointment) Patient Instructions/Handouts: Cefepime (By injection), Acute Myeloid Leukemia (DC), Sepsis (GEN), Pancytopenia (DC) Activity/Diet/Wound Care/Special Instructions: resume your previous diet activity is restricted till you see your doctor Dr. Mathur ordered Cefepime 2gm IV every 8 hours x 10 more days - watch case polisher has completed set up. after you have completed your course of antibiotics, you have to go the [facility] office to get your PICC line removed Discharge Disposition: HOME SELF-CARE
--- NOTE | 2020-03-23 04:15 | CDI ---
Documentation Clarification Form Date: 03/23/2020 From: Jhasnirani. Morales Phone: If you have a question about this query, please contact Tash Saenz Hand Laster at [phone] between 8am and 5pm. Admit Date: 03/10/2020 Discharge Date: 03/21/2020 Patient Name: Flex Chand Visit Number: [id number] ATTENTION: The Clinical Documentation Specialists (CDI) and [facility] Coding Staff appreciate your assistance in clarifying documentation. Please respond to the clarification below the line at the bottom and electronically sign. The CDI & [facility] Coding staff will review the response and follow-up if needed. Please note: Queries are made part of the Legal Health Record. If you have any questions, please contact the author of this message via ITS. Dear Dr Danilo Holbrook MD, The patient presented with sepsis secondary to Pseudomonas bacteremia, patient has been evaluated by hematology/oncology team and infectious disease team, he has been treated with cefepime and Diflucan. As per the progress notes Patient with Pseudomonas aeruginosa bacteremia with concern for possible PICC line related was documented. History/Risk Factors: AML, Pancytopenia, HTN. Clinical Indicators: Neutropenic Fever, colitis WBC :1.5L,1.5L,1.3LL Lactic acid: 1.2,4.3HH,3.4HH Blood cultures: Gram Neg Bacilli,Pseudomonas aeruginosa. Vitals signs on admission: blood pressure 109/65 pulse is 103, respiration 18 and temperature 103.4. Treatment: Antibiotics: Cefepime and Diflucan In your professional opinion, please clarify the Etiology of Sepsis, if known: Condition * Sepsis Due to Pseudomonaus, * Sepsis Due to PICC line infection, * Sepsis Due to other etiology, * Other, please specify * Unable to determine (Last Revision: July 2017) Sepsis Due to Pseudomonaus MTDD
== END 2020-03-21 17:34 | disposition home or self-care (01) | DRG 871 ==
LOC: EC 10:02 → 3SCARD 13:57 → 2SICU 19:21 → 5NMEDONC 03-13 21:00
PROVIDERS: ADMIT Internal Medicine; ATTEND Internal Medicine
DX: A41.52 Sepsis due to Pseudomonas (principal); D61.810 Antineoplastic chemotherapy induced pancytopenia; R65.21 Severe sepsis with septic shock; T80.211A Bloodstream infection due to central venous catheter, initial encounter; C92.00 Acute myeloblastic leukemia, not having achieved remission; E87.2 Acidosis; J98.11 Atelectasis; Z20.828 Contact with and (suspected) exposure to other viral communicable diseases; F41.9 Anxiety disorder, unspecified; F32.9 Major depressive disorder, single episode, unspecified; I10 Essential (primary) hypertension; E78.5 Hyperlipidemia, unspecified; D70.3 Neutropenia due to infection; B95.62 Methicillin resistant Staphylococcus aureus infection as the cause of diseases classified elsewhere; Y83.8 Other surgical procedures as the cause of abnormal reaction of the patient, or of later complication, without mention of misadventure at the time of the procedure; K52.89 Other specified noninfective gastroenteritis and colitis; Z53.29 Procedure and treatment not carried out because of patient's decision for other reasons; R21 Rash and other nonspecific skin eruption; R50.81 Fever presenting with conditions classified elsewhere; T45.1X5A Adverse effect of antineoplastic and immunosuppressive drugs, initial encounter; I65.22 Occlusion and stenosis of left carotid artery; Z79.899 Other long term (current) drug therapy; Z79.52 Long term (current) use of systemic steroids; Z87.891 Personal history of nicotine dependence; Z87.09 Personal history of other diseases of the respiratory system; Z86.73 Personal history of transient ischemic attack (TIA), and cerebral infarction without residual deficits
CPT/HCPCS: 36415; 36430; 71045; 71260; 74177; 80048; 80053; 80202; 81001; 82565; 82728; 83605; 83615; 83735; 84132; 84145; 85025; 85027; 85384; 85610; 85730; 86140; 86850; 86900; 86901; 86920; 87040; 87045; 87046; 87077; 87086; 87186; 87324; 87502; 87635; 93005; 96361; 96365; 96367; 99285

== ENCOUNTER → 2020-03-23 | Day surgery (SDC) | payer MEDICARE, OTHER | LOC: CATHCVL 12:59 | PROVIDERS: ATTEND Internal Medicine Infectious Disease | DX: R78.81 Bacteremia (principal); D70.9 Neutropenia, unspecified; R50.81 Fever presenting with conditions classified elsewhere; E78.5 Hyperlipidemia, unspecified; I10 Essential (primary) hypertension; I65.22 Occlusion and stenosis of left carotid artery; F41.9 Anxiety disorder, unspecified; F32.9 Major depressive disorder, single episode, unspecified; Z85.6 Personal history of leukemia; Z92.21 Personal history of antineoplastic chemotherapy; Z87.2 Personal history of diseases of the skin and subcutaneous tissue; Z86.73 Personal history of transient ischemic attack (TIA), and cerebral infarction without residual deficits; Z87.09 Personal history of other diseases of the respiratory system; Z98.890 Other specified postprocedural states; Z87.891 Personal history of nicotine dependence; Z79.899 Other long term (current) drug therapy; Z79.2 Long term (current) use of antibiotics | CPT/HCPCS: 36410; 76937; C1751 ==

== ENCOUNTER → 2020-04-26 | Day surgery (SDC) | payer MEDICARE, OTHER ==
[2020-04-24 14:06] VITALS: BMI 28.3
[~2020-04-26] MED LIST: LIDOCAINE 1% INJ 10MG/ML (20 ML MDV) SQ ONE
[2020-04-26 08:59] VITALS: BP 132/77; PULSE 96; RESP 18; TEMP 99
[2020-04-26 09:07] LABS: Anisocytosis Slight; HCT 27.7 % (39.0-53.0); MCH 34.8 pg (25.0-35.0); MCHC 35.4 g/dL (31.0-37.0); Macrocytosis Slight; Mean Platelet Volume 7.4; RBC 2.82 m/uL (4.30-5.90); RDW 17.7 % (11.5-15.5); WBC 3.5 k/uL (3.8-10.6)
[2020-04-26 09:20] LABS: African American GFR (CKD) >90 (>60 ml/min/1.73 sqM); Anion Gap 10 mmol/L; Blood Urea Nitrogen 14 mg/dL (9-20); Carbon Dioxide 25 mmol/L (22-30); Chloride 103 mmol/L (98-107); Non-African American GFR(CKD) 90 (>60 ml/min/1.73 sqM); Sodium 138 mmol/L (137-145)
--- NOTE | 2020-04-26 09:28 | IR ---
PICC LINE PLACEMENT: HISTORY: Infection requiring long-term antibiotic therapy PROCEDURE: Ultrasound and fluoroscopic guidance of PICC line placement. COMPLICATIONS: None ANESTHESIA: 1. 1% Lidocaine locally. FINDINGS/TECHNIQUE: The procedure was explained to the patient. The risks, complications, benefits and alternatives were discussed and any questions were answered. Informed consent was obtained. The patient was placed supine on the fluoroscopic table and prepped and draped in the usual sterile [facility] ion. Utilizing a 21 gauge needle and sonographic and fluoroscopic guidance, access in the vein was achieved and there is placement of a 0.018 guidewire. The vein is patent. A 4-F sheath was placed o lake the guidewire. The guidewire and dilator were removed and a 4-F. PICC line was placed through th e sheath with the tip at the level of the SVC. The sheath was removed, the catheter was flushed and sutured into position. The patient was stable throughout the procedure and remained stable upon disc harge from the Department of Radiology. The vein puncture was patent under ultrasound. A marshall scale image was obtained to document patency of the vein punctured. All elements of the maximal barrier technique were utilized. FLUOROSCOPY TIME: 0.1 minutes and one image submitted IMPRESSION: Successful PICC line placement under ultrasound and fluoroscopic guidance.
[2020-04-26 09:31] LABS: HGB 9.8 gm/dL (13.0-17.5); MCV 98.3 fL (80.0-100.0); Platelet Count 161 k/uL (150-450)
[2020-04-26 10:08] LABS: Eosinophils # (M) 0.04 k/uL (0-0.7); Lymphocytes # (M) 1.79 k/uL (1.0-4.8); Monocytes # (M) 0.14 k/uL (0-1.0); Neutrophils # (M) 1.54 k/uL (1.3-7.7); Neutrophils % (M) 44 %; Nucleated Red Blood Cells 0 /100 WBC (0-0); Total Cells Counted 100
== END ==
LOC: CATHCVL 08:36
PROVIDERS: ATTEND Radiology Diagnostic Radiology
DX: C92.00 Acute myeloblastic leukemia, not having achieved remission (principal); Z79.899 Other long term (current) drug therapy; I10 Essential (primary) hypertension; E78.00 Pure hypercholesterolemia, unspecified; Z98.890 Other specified postprocedural states; Z87.891 Personal history of nicotine dependence
CPT/HCPCS: 36573; 80051; 82565; 84520; 85025; C1751; C1769; J2001

== ENCOUNTER 2020-05-05 02:29 | Inpatient (IN) | payer MEDICARE, OTHER ==
[2020-05-05] MEDS ORDERED: ACETAMINOPHEN TAB 325 MG TAB PO STA (03:06)
[2020-05-05] MEDS ORDERED: CEFEPIME 2 GM in SODIUM CHLORIDE 0.9% 100 ML IVPB STA (03:08)
[2020-05-05 03:44] LABS: MCH 33.2 pg (25.0-35.0); MCHC 35.6 g/dL (31.0-37.0); MCV 93.3 fL (80.0-100.0); Mean Platelet Volume 9.3; RBC 1.92 m/uL (4.30-5.90); RDW 14.7 % (11.5-15.5)
[2020-05-05 04:01] LABS: HCT 17.9 % (39.0-53.0); HGB 6.4 gm/dL (13.0-17.5); WBC 0.2 k/uL (3.8-10.6)
[2020-05-05 04:02] LABS: Platelet Count 4 k/uL (150-450)
--- NOTE | 2020-05-05 04:07 | XR ---
EXAM: XR Chest, 2 Views CLINICAL HISTORY: ITS.REASON XR Reason: fever TECHNIQUE: Frontal and lateral views of the chest. COMPARISON: 03/10/2020 FINDINGS: Lungs: No consolidation or mass. Pleural space: No effusion. Heart: No cardiomegaly. Bones/joints: No acute findings. IMPRESSION: No acute cardiopulmonary process.
[2020-05-05 04:11] LABS: ALT 11 U/L (4-49); AST 13 U/L (17-59); African American GFR (CKD) >90 (>60 ml/min/1.73 sqM); Albumin 3.3 g/dL (3.5-5.0); Alkaline Phosphatase 49 U/L (38-126); Anion Gap 7 mmol/L; Blood Urea Nitrogen 12 mg/dL (9-20); Calcium 8.3 mg/dL (8.4-10.2); Carbon Dioxide 23 mmol/L (22-30); Chloride 104 mmol/L (98-107); Glucose 127 mg/dL (74-99); Non-African American GFR(CKD) >90 (>60 ml/min/1.73 sqM); Sodium 134 mmol/L (137-145); Total Bilirubin 0.7 mg/dL (0.2-1.3); Total Protein 6.1 g/dL (6.3-8.2)
[2020-05-05] MEDS ORDERED: SODIUM CHLORIDE 0.9% 500 ML 500 ML IV STA (05:47)
[2020-05-05] MEDS ORDERED: SODIUM CHLORIDE 0.9% 1,000 ML IV STA (05:47)
--- NOTE | 2020-05-05 06:22 | ED ---
Fever HPI - General Chief Complaint: Fever Stated Complaint: Fever Time Seen by Provider: 05/05/20 02:51 Source: patient, family Mode of arrival: wheelchair Limitations: no limitations - History of Present Illness Initial Comments: This patient is a 69-year-old man, currently being treated for AML, whose last treatment was one week ago. He presents with complaint that he has developed fever and chills over the course of the past day. He has not noted symptoms of infection other than to state that he is having some left lower abdominal pain that he was concerned about possibility of recurrence of diverticulitis. MD Complaint: fever -: hour(s) Context: on chemotherapy Associated Symptoms: abdominal pain Treatments Prior to Arrival: none - Related Data Home Medications Medication Instructions Recorded Confirmed FLUoxetine HCL [PROzac] 40 mg PO QAM 01/09/20 05/05/20 clonazePAM [KlonoPIN] 1 mg PO BID 01/09/20 05/05/20 hydrOXYzine pamoate [Vistaril] 50 mg PO TID 01/09/20 05/05/20 Acetaminophen Tab [Tylenol] 650 mg PO Q4H PRN 05/05/20 05/05/20 Acyclovir 400 mg PO BID 05/05/20 05/05/20 Ciprofloxacin HCl [Cipro] 500 mg PO Q12HR 05/05/20 05/05/20 Fluconazole [Diflucan] 100 mg PO DAILY 05/05/20 05/05/20 Allergies Allergy/AdvReac Type Severity Reaction Status Date / Time No Known Allergies Allergy Verified 05/05/20 06:42 Review of Systems ROS Statement: Those systems with pertinent positive or pertinent negative responses have been documented in the HPI. ROS Other: All systems not noted in ROS Statement are negative. Constitutional: Reports: fever, chills, weakness ENT: Denies: throat pain, congestion Respiratory: Denies: cough, dyspnea, wheezes Cardiovascular: Denies: chest pain, palpitations, orthopnea, edema, syncope Gastrointestinal: Reports: as per HPI, abdominal pain. Denies: nausea, vomiting, diarrhea, constipation Genitourinary: Denies: dysuria, frequency, hematuria, testicular pain Musculoskeletal: Denies: back pain Skin: Denies: rash Neurological: Denies: headache, weakness, numbness Past Medical History Past Medical History: Cancer, CVA/TIA, Hyperlipidemia, Hypertension Additional Past Medical History / Comment(s): Left-sided spontaneous pneuomth orax; hemorrhagic stroke; left carotid stenosis 50%, Leukemia, History of Any Multi-Drug Resistant Organisms: None Reported Past Surgical History: Orthopedic Surgery Additional Past Surgical History / Comment(s): ACL replacement, PICC Past Anesthesia/Blood Transfusion Reactions: No Reported Reaction Past Psychological History: Anxiety, Depression Smoking Status: Former smoker Past Alcohol Use History: None Reported Past Drug Use History: None Reported - Past Family History Father Family Medical History: Unable to Obtain Additional Family Medical History / Comment(s): Unable to attain family medical history as patient was adopted General Exam Limitations: no limitations General appearance: alert, in no apparent distress Head exam: Present: atraumatic, normocephalic Eye exam: Present: normal appearance. Absent: scleral icterus, conjunctival injection ENT exam: Present: normal oropharynx Neck exam: Present: normal inspection Respiratory exam: Present: normal lung sounds bilaterally. Absent: respiratory distress, wheezes, rales, rhonchi, stridor Cardiovascular Exam: Present: normal rhythm, tachycardia, normal heart sounds. Absent: systolic murmur, diastolic murmur, rubs, gallop GI/Abdominal exam: Present: soft, tenderness (Is mild left lower quadrant tenderness without rebound or guarding), normal bowel sounds. Absent: distended, guarding, rebound, rigid, pulsatile mass, hernia Extremities exam: Present: normal inspection, normal capillary refill. Absent: pedal edema, calf tenderness Back exam: Present: normal inspection. Absent: CVA tenderness (R), CVA tenderness (L) Neurological exam: Present: alert Skin exam: Present: warm, dry, intact, petechiae, pallor. Absent: normal color, rash Course Vital Signs 05/05/20 05/05/20 05/05/20 02:32 04:34 06:00 Temperature 102.1 F H 98.6 F 99.1 F Pulse Rate 109 H 89 78 Respiratory 24 16 18 Rate Blood Pressure 122/61 105/60 114/67 O2 Sat by Pulse 97 99 98 Oximetry 05/05/20 05/05/20 05/05/20 07:09 08:18 10:58 Temperature 99.8 F H 102.2 F H 99.6 F Pulse Rate 104 H Respiratory 20 Rate Blood Pressure 116/59 O2 Sat by Pulse 99 Oximetry 05/05/20 05/05/20 05/05/20 11:04 11:15 11:19 Temperature 99.8 F H 99.7 F H Pulse Rate 102 H 104 H 105 H Respiratory 18 18 26 H Rate Blood Pressure 125/51 113/67 O2 Sat by Pulse 99 100 100 Oximetry 05/05/20 05/05/20 05/05/20 11:20 11:30 11:47 Temperature 100.6 F H 98.8 F Pulse Rate 103 H 103 H 105 H Respiratory 18 24 20 Rate Blood Pressure 116/54 125/67 O2 Sat by Pulse 100 100 100 Oximetry 05/05/20 05/05/20 05/05/20 12:59 14:15 14:30 Temperature 100.8 F H 99 F 99.6 F Pulse Rate 102 H 110 H 108 H Respiratory 20 20 20 Rate Blood Pressure 128/74 113/62 118/66 O2 Sat by Pulse 99 100 97 Oximetry 05/05/20 15:01 Temperature 99.8 F H Pulse Rate 102 H Respiratory 18 Rate Blood Pressure 122/78 O2 Sat by Pulse 99 Oximetry Medical Decision Making - Medical Decision Making Patient is 69-year-old man currently undergoing treatment for AML. Patient comes in with febrile neutropenia. Case discussed with admitting physician and with oncology web services professional. - Lab Data Result diagrams: 05/11/20 06:18 05/11/20 06:18 Lab Results 05/05/20 05/05/20 05/05/20 Range/Units 03:33 03:33 03:42 WBC 0.2 L* (3.8-10.6) k/uL RBC 1.92 L (4.30-5.90) m/uL Hgb 6.4 L* D (13.0-17.5) gm/dL Hct 17.9 L* (39.0-53.0) % MCV 93.3 D (80.0-100.0) fL MCH 33.2 (25.0-35.0) pg MCHC 35.6 (31.0-37.0) g/dL RDW 14.7 (11.5-15.5) % Plt Count 4 L* D (150-450) k/uL MPV 9.3 Neutrophils # CURBER Differential Comment Manual Slide Review Performed Sodium 134 L (137-145) mmol/L Potassium 4.0 (3.5-5.1) mmol/L Chloride 104 (98-107) mmol/L Carbon Dioxide 23 (22-30) mmol/L Anion Gap 7 mmol/L BUN 12 (9-20) mg/dL Creatinine 0.84 (0.66-1.25) mg/dL Est GFR (CKD-EPI)AfAm >90 (>60 ml/min/1.73 sqM) Est GFR (CKD-EPI)NonAf >90 (>60 ml/min/1.73 sqM) Glucose 127 H (74-99) mg/dL Lactic Ac Sepsis Rflx Plasma Lactic Acid Gonsalo 2.1 H* (0.7-2.0) mmol/L Calcium 8.3 L (8.4-10.2) mg/dL Total Bilirubin 0.7 (0.2-1.3) mg/dL AST 13 L (17-59) U/L ALT 11 (4-49) U/L Alkaline Phosphatase 49 (38-126) U/L Total Protein 6.1 L (6.3-8.2) g/dL Albumin 3.3 L (3.5-5.0) g/dL Coronavirus (PCR) (Not Detectd) Influenza Type A RNA (Not Detectd) Influenza Type B (PCR) (Not Detectd) Blood Type Blood Type Recheck Bld Type Recheck Status Antibody Screen Crossmatch Spec Expiration Date 05/05/20 05/05/20 05/05/20 Range/Units 03:42 03:42 04:06 WBC (3.8-10.6) k/uL RBC (4.30-5.90) m/uL Hgb (13.0-17.5) gm/dL Hct (39.0-53.0) % MCV (80.0-100.0) fL MCH (25.0-35.0) pg MCHC (31.0-37.0) g/dL RDW (11.5-15.5) % Plt Count (150-450) k/uL MPV Neutrophils # Differential Comment Manual Slide Review Sodium (137-145) mmol/L Potassium (3.5-5.1) mmol/L Chloride (98-107) mmol/L Carbon Dioxide (22-30) mmol/L Anion Gap mmol/L BUN (9-20) mg/dL Creatinine (0.66-1.25) mg/dL Est GFR (CKD-EPI)AfAm (>60 ml/min/1.73 sqM) Est GFR (CKD-EPI)NonAf (>60 ml/min/1.73 sqM) Glucose (74-99) mg/dL Lactic Ac Sepsis Rflx Plasma Lactic Acid Gonsalo (0.7-2.0) mmol/L Calcium (8.4-10.2) mg/dL Total Bilirubin (0.2-1.3) mg/dL AST (17-59) U/L ALT (4-49) U/L Alkaline Phosphatase (38-126) U/L Total Protein (6.3-8.2) g/dL Albumin (3.5-5.0) g/dL Coronavirus (PCR) Not Detected (Not Detectd) Influenza Type A RNA Not Detected (Not Detectd) Influenza Type B (PCR) Not Detected (Not Detectd) Blood Type O Positive Blood Type Recheck O Pos Bld Type Recheck Status No Antibody Screen NEGATIVE Crossmatch See Detail Spec Expiration Date 05/08/2020 - 230505/05/20 Range/Units 04:40 WBC (3.8-10.6) k/uL RBC (4.30-5.90) m/uL Hgb (13.0-17.5) gm/dL Hct (39.0-53.0) % MCV (80.0-100.0) fL MCH (25.0-35.0) pg MCHC (31.0-37.0) g/dL RDW (11.5-15.5) % Plt Count (150-450) k/uL MPV Neutrophils # Differential Comment Manual Slide Review Sodium (137-145) mmol/L Potassium (3.5-5.1) mmol/L Chloride (98-107) mmol/L Carbon Dioxide (22-30) mmol/L Anion Gap mmol/L BUN (9-20) mg/dL Creatinine (0.66-1.25) mg/dL Est GFR (CKD-EPI)AfAm (>60 ml/min/1.73 sqM) Est GFR (CKD-EPI)NonAf (>60 ml/min/1.73 sqM) Glucose (74-99) mg/dL Lactic Ac Sepsis Rflx Y Plasma Lactic Acid Gonsalo (0.7-2.0) mmol/L Calcium (8.4-10.2) mg/dL Total Bilirubin (0.2-1.3) mg/dL AST (17-59) U/L ALT (4-49) U/L Alkaline Phosphatase (38-126) U/L Total Protein (6.3-8.2) g/dL Albumin (3.5-5.0) g/dL Coronavirus (PCR) (Not Detectd) Influenza Type A RNA (Not Detectd) Influenza Type B (PCR) (Not Detectd) Blood Type Blood Type Recheck Bld Type Recheck Status Antibody Screen Crossmatch Spec Expiration Date Disposition Clinical Impression: Neutropenic fever, Pancytopenia, Diverticulitis Disposition: ADMITTED IP TO THIS HOSP Condition: Serious Is patient prescribed a controlled substance at d/c from ED?: No
[2020-05-05] MEDS ORDERED: NALOXONE 0.4 MG/ML 1 ML VIAL IV PRN (06:47)
[2020-05-05] MEDS ORDERED: IBUPROFEN 600 MG TAB PO STA (06:49)
[2020-05-05] MEDS ORDERED: SODIUM CHLORIDE 0.9% 1,000 ML IV SCH ×2 (07:00→10:45)
[2020-05-05 07:10] LABS: Appearance,Urine Clear (Clear); Bilirubin,Urine Negative (Negative); Blood,Urine Negative (Negative); Color,Urine Yellow; Glucose,Urine (UA) Negative (Negative); Ketones,Urine Negative (Negative); Leukocyte Esterase,Urine Negative (Negative); Mucus,Urine Few /hpf; Nitrite,Urine Negative (Negative); Protein,Urine 1+ (Negative); RBC,Urine 1 /hpf (0-5); Specific Gravity,Urine 1.034 (1.001-1.035); Squamous Epithelial Cell,Urine <1 /hpf (0-4); Urobilinogen,Urine <2.0 mg/dL (<2.0); WBC,Urine 2 /hpf (0-5)
--- NOTE | 2020-05-05 07:54 | CT ---
EXAMINATION TYPE: CT abdomen pelvis wo con DATE OF EXAM: 05/05/2020 COMPARISON: 03/14/2020 HISTORY: 69-year-old male with acute left lower quadrant pain CT DLP: 590.9 mGycm. Automated exposure control for dose reduction was used. TECHNIQUE: Contiguous axial scanning of the abdomen and pelvis without IV contrast. Coronal and sagit norris reconstructions performed. FINDINGS: Heart normal size with trace pericardial fluid. Focal nodular density at the posterior left base measuring 1.8 cm with some surrounding strandy densi ty, possible scarring giving the previous more extensive opacity on 03/14/2020. Short interval follow -up recommended to reassess. Small hiatal hernia. Noncontrast appearance of the liver, gallbladder, adrenal glands, kidneys, and pancreas within normal limits. Spleen enlarged at 15.0 cm. No dilated small bowel, free fluid, or free air. No mesenteric or retroperitoneal lymphadenopathy. Normal appendix. Left-sided colonic diverticulosis, greatest in the proximal and mid sigmoid colon. At the level of the proximal sigmoid colon, there is mild to moderate circumferential wall thickening and moderate surrounding inflammatory fat stranding. Bladder partially distended. Prostate gland measures 4.6 cm wide. Patulous left inguinal canal, possi ble small indirect fatty inguinal hernia. Pelvic phleboliths. No abnormal fluid collection in the pel vis or pelvic lymphadenopathy. Bones: Mild degenerative change of both hips and SI joints. Facet arthropathy lower lumbar spine. Mod erate degenerative disc disease T9-T10. IMPRESSION: 1. Exam positive for acute diverticulitis along the proximal sigmoid with moderate inflammation. No abscess or free air. 2. Improvement in aeration at the left base as compared to 03/14/2020 but with a residual 1.8 cm nod ular density that could represent scarring. RECOMMEND 6-8 WEEK FOLLOW-UP CT CHEST TO REASSESS THIS AR EA AND EXCLUDE EARLY LUNG CANCER. 3. Mild splenomegaly at 15.0 cm and a small hiatal hernia.
[2020-05-05] MEDS: ACETAMINOPHEN TAB 325 MG TAB PO PRN ×4 (08:20→21:57)
[2020-05-05] MEDS ORDERED: CIPROFLOXACIN HCL 500 MG TAB PO SCH (09:00)
[2020-05-05] MEDS: metroNIDAZOLE-NS PMX 500 MG in SALINE 1 100ML.BAG IVPB SCH ×3 (10:11→23:50)
[2020-05-05] MEDS: clonazePAM 1 MG TAB PO SCH ×2 (10:14→21:28)
[2020-05-05] MEDS: hydrOXYzine pamoate 25 MG CAP PO SCH ×3 (10:14→21:27)
[2020-05-05] MEDS: FLUCONAZOLE 100 MG TAB PO SCH (10:15)
[2020-05-05] MEDS: ACYCLOVIR 200 MG CAP PO SCH ×2 (10:15→22:22)
[2020-05-05] MEDS: FLUoxetine HCL 20 MG CAP PO SCH (10:15)
--- NOTE | 2020-05-05 10:34 | P.HPIM ---
History of Present Illness 69-year-old pleasant male with known history of acute myeloblastic leukemia received chemotherapy 8th of this month came in with complaints of high-grade fever of 102 found to be severely rangel supplemented and pain can't supposed rec eive platelet transfusion and blood transfusion as an outpatient patient was complaining of pain in the left lower quadrant and found to have diverticulitis. Patient was given cefepime and metronidazole will be added and patient will receive transfusion of irradiated PRBC along with platelet transfusion and oncology was consulted. Review of Systems REVIEW OF SYSTEMS: CONSTITUTIONAL: As mentioned in HPI HEENT: No recent visual problems or hearing problems. Denied any sore throat. CARDIOVASCULAR: No chest pain, orthopnea, PND, no palpitations, no syncope. PULMONARY: No shortness of breath, no cough, no hemoptysis. GASTROINTESTINAL: No diarrhea, no nausea, no vomiting, no abdominal pain. NEUROLOGICAL: No headaches, no weakness, no numbness. HEMATOLOGICAL: Denies any bleeding or petechiae. GENITOURINARY: Denies any burning micturition, frequency, or urgency. MUSCULOSKELETAL/RHEUMATOLOGICAL: Denies any joint pain, swelling, or any muscle pain. ENDOCRINE: Denies any polyuria or polydipsia. The rest of the 14-point review of systems is negative. Past Medical History Past Medical History: Cancer, CVA/TIA, Hyperlipidemia, Hypertension Additional Past Medical History / Comment(s): Left-sided spontaneous pneuomthorax; hemorrhagic stroke; left carotid stenosis 50%, Leukemia, History of Any Multi-Drug Resistant Organisms: None Reported Past Surgical History: Orthopedic Surgery Additional Past Surgical History / Comment(s): ACL replacement, PICC Past Anesthesia/Blood Transfusion Reactions: No Reported Reaction Past Psychological History: Anxiety, Depression Smoking Status: Former smoker Past Alcohol Use History: None Reported Past Drug Use History: None Reported - Past Family History Father Family Medical History: Unable to Obtain Additional Family Medical History / Comment(s): Unable to attain family medical history as patient was adopted Medications and Allergies Home Medications Medication Instructions Recorded Confirmed Type FLUoxetine HCL [PROzac] 40 mg PO QAM 01/09/20 05/05/20 History clonazePAM [KlonoPIN] 1 mg PO BID 01/09/20 05/05/20 History hydrOXYzine pamoate [Vistaril] 50 mg PO TID 01/09/20 05/05/20 History Acetaminophen Tab [Tylenol] 650 mg PO Q4H PRN 05/05/20 05/05/20 History Acyclovir 400 mg PO BID 05/05/20 05/05/20 History Ciprofloxacin HCl [Cipro] 500 mg PO Q12HR 05/05/20 05/05/20 History Fluconazole [Diflucan] 100 mg PO DAILY 05/05/20 05/05/20 History Allergies Allergy/AdvReac Type Severity Reaction Status Date / Time No Known Allergies Allergy Verified 05/05/20 06:42 Physical Exam Vitals: Vital Signs Temp Pulse Resp BP Pulse Ox 05/05/20 08:18 102.2 F H 05/05/20 07:09 99.8 F H 05/05/20 06:00 99.1 F 78 18 114/67 98 05/05/20 04:34 98.6 F 89 16 105/60 99 05/05/20 02:32 102.1 F H 109 H 24 122/61 97 Intake and Output 05/04/20 05/05/20 05/05/20 22:59 06:59 14:59 Other: Weight 78.925 kg PHYSICAL EXAMINATION: GENERAL: The patient is alert and oriented x3, not in any acute distress. Well developed, well nourished. HEENT: Pupils are round and equally reacting to light. EOMI. No scleral icterus. Does have conjunctival pallor. Normocephalic, atraumatic. No pharyngeal erythema. No thyromegaly. CARDIOVASCULAR: S1 and S2 present. No murmurs, rubs, or gallops. PULMONARY: Chest is clear to auscultation, no wheezing or crackles. ABDOMEN: Soft, nontender, nondistended, normoactive bowel sounds. No palpable organomegaly. MUSCULOSKELETAL: No joint swelling or deformity. EXTREMITIES: No cyanosis, clubbing, or pedal edema. NEUROLOGICAL: Gross neurological examination did not reveal any focal deficits. SKIN: Diffuse petechial rash secondary to thrombocytopenia Results CBC & Chem 7: 05/05/20 03:33 05/05/20 03:33 Labs: Abnormal Lab Results - Last 24 Hours (Table) 05/05/20 05/05/20 05/05/20 Range/Units 03:33 03:33 03:42 WBC 0.2 L* (3.8-10.6) k/uL RBC 1.92 L (4.30-5.90) m/uL Hgb 6.4 L* D (13.0-17.5) gm/dL Hct 17.9 L* (39.0-53.0) % Plt Count 4 L* D (150-450) k/uL Sodium 134 L (137-145) mmol/L Glucose 127 H (74-99) mg/dL Plasma Lactic Acid Gonsalo 2.1 H* (0.7-2.0) mmol/L Calcium 8.3 L (8.4-10.2) mg/dL AST 13 L (17-59) U/L Total Protein 6.1 L (6.3-8.2) g/dL Albumin 3.3 L (3.5-5.0) g/dL Urine Protein (Negative) Urine Mucus (None) /hpf Crossmatch 05/05/20 05/05/20 05/05/20 Range/Units 04:06 07:00 07:40 WBC (3.8-10.6) k/uL RBC (4.30-5.90) m/uL Hgb (13.0-17.5) gm/dL Hct (39.0-53.0) % Plt Count (150-450) k/uL Sodium (137-145) mmol/L Glucose (74-99) mg/dL Plasma Lactic Acid Gonsalo 3.0 H* (0.7-2.0) mmol/L Calcium (8.4-10.2) mg/dL AST (17-59) U/L Total Protein (6.3-8.2) g/dL Albumin (3.5-5.0) g/dL Urine Protein 1+ H (Negative) Urine Mucus Few H (None) /hpf Crossmatch See Detail Assessment and Plan Plan: -Severe Sepsis, febrile neutropenia: Secondary to most probably diverticulitis: Patient will be continued on cefepime, metronidazole will be added and will continue with the prophylactic acyclovir and fluconazole. Patient has elevated lactic acid which will be monitored patient will be continued on IV fluids -Acute myeloblastic leukemia: Oncology was consulted patient received chemotherapy recently -Pancytopenia with very low hemoglobin patient will be transfused with irradiated RBC and patient has severe thrombocytopenia with petechiae platelet transfusion was ordered as well -Hypovolemic hyponatremia: Expected to improve with IV fluids -Hypertension -Hyperlipidemia -Depression Because of her severe thrombocytopenia patient cannot receive any pharmacologic DVT prophylaxis with Pepcid will be ordered for GI prophylaxis
[2020-05-05] MEDS: CEFEPIME 2 GM in SODIUM CHLORIDE 0.9% 100 ML IVPB SCH ×2 (14:55→19:52)
[2020-05-05 15:25] LABS: INR 1.1 (<1.2); Partial Thromboplastin Time 32.7 sec (22.0-30.0); Prothrombin Time 11.1 sec (9.0-12.0)
[2020-05-05] MEDS: DEXTROSE 5%-0.9% NACL 1,000 ML IV SCH (16:01)
[2020-05-05 17:09] LABS: Glucose,Whole Blood 117 mg/dL (75-99)
--- NOTE | 2020-05-05 21:08 | P.CONS ---
History of Present Illness - Reason for Consult Consult date: 05/05/20 Pancytopenia, symptomatic anemia, febrile neutropenia Requesting physician: Jefe Delarosa - Chief Complaint cytopenias, symptomatic, febrile - History of Present Illness Mr Chand is a pleasant white male, initially seen in consult at [facility] on 01/13/20. It come into the hospital complaining of fever, chills, with cough and chest discomfort. The patient was less than 101. Cardiac ischemia was rule out. He had a CTA of the chest that was negative for PE, or dissection but did show some abnormal mediastinal density. The patient was seen back in the thoracic surgery indicated that these findings were nonspecific and did not recommend further workup. He was also placed on antibiotics by ID with resolution of symptoms. CBC on admission showed 6% blasts with other indices essentially normal. As this finding persisted patient had additional labs done, that were negative. He then underwent a bone marrow aspiration biopsy on 01/19/20. 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 Flow cytometry actually showed about 40% blasts. 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 AML fish was negative. 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 He was referred to the [facility] and seen by Dr Kowalski. Case was d/w him. Induction chemo with Vyxeos was recommended. The patient completed induction on 02/25/20. He was subsequently admitted with febrile neutropenia, and had hospitalization for several days with blood product support, antibiotics, as well as need for bowel rest transiently because of clinical neutropenic colitis. He did improve and was able to be discharged but was then readmitted again with severe sepsis. This time blood cultures are positive for Pseudomonas. He also developed severe diarrhea which was slow to resolve. The patient did improve with aggressive supportive care, and was able to be discharged on 03/21/20. At the time of discharge, blood counts were showing signs of recovery. he had follow-up bone marrow done on 03/28/20. This showed between 2-3% residual aberrant blasts he was seen back at the [facility], and allo BMT was planned. This was delayed because of exposure of his potential donor, his daughter, to COVID. therefore a cycle of consolidation Vyxeos was recommended. He had that from 04/26-04/28/20 He was last seen 05/02/19 he completed his dental extractions last week, and post procedure antibiotics that day. the patient is status post cycle #1 of consolidation. At this time subjective side effects are mostly grade 1. -Check labs. The patient will be placed back on regular lab draws with supportive transfusions as needed to keep hemoglobin greater than 7 and platelets greater than 10 - Prophylactic antibiotics will be prescribed -He will be going back to [facility] in the 1st wk of 05/2020 he now re-presents to the hospital with pancytopenia, fevers, and not feeling well. On admission platelets 4K, Hemoglobin 6.4, WBC 0.2. He complains of diarrhea, LLQ abdominal pain. Rash has represented (previously present). COncern of neutropenic colitis therefore will decrease diet to NPO at this time. CT abdomen and pelvis did reveal evidence of diverticulitis and GO is following Review of Systems All systems: negative Constitutional: Reports as per HPI Past Medical History Past Medical History: Cancer, CVA/TIA, Hyperlipidemia, Hypertension Additional Past Medical History / Comment(s): Left-sided spontaneous pneuomthorax; hemorrhagic stroke; left carotid stenosis 50%, Leukemia, History of Any Multi-Drug Resistant Organisms: None Reported Past Surgical History: Orthopedic Surgery Additional Past Surgical History / Comment(s): ACL replacement, PICC Past Anesthesia/Blood Transfusion Reactions: No Reported Reaction Past Psychological History: Anxiety, Depression Smoking Status: Former smoker Past Alcohol Use History: None Reported Past Drug Use History: None Reported - Past Family History Father Family Medical History: Unable to Obtain Additional Family Medical History / Comment(s): Unable to attain family medical history as patient was adopted Medications and Allergies Home Medications Medication Instructions Recorded Confirmed Type FLUoxetine HCL [PROzac] 40 mg PO QAM 01/09/20 05/05/20 History clonazePAM [KlonoPIN] 1 mg PO BID 01/09/20 05/05/20 History hydrOXYzine pamoate [Vistaril] 50 mg PO TID 01/09/20 05/05/20 History Acetaminophen Tab [Tylenol] 650 mg PO Q4H PRN 05/05/20 05/05/20 History Acyclovir 400 mg PO BID 05/05/20 05/05/20 History Ciprofloxacin HCl [Cipro] 500 mg PO Q12HR 05/05/20 05/05/20 History Fluconazole [Diflucan] 100 mg PO DAILY 05/05/20 05/05/20 History Allergies Allergy/AdvReac Type Severity Reaction Status Date / Time No Known Allergies Allergy Verified 05/05/20 06:42 Physical Exam Vitals: Vital Signs Temp Pulse Resp BP Pulse Ox 05/05/20 12:59 100.8 F H 102 H 20 128/74 99 05/05/20 11:47 98.8 F 105 H 20 125/67 100 05/05/20 11:30 100.6 F H 103 H 24 116/54 100 05/05/20 11:20 103 H 18 100 05/05/20 11:19 105 H 26 H 100 05/05/20 11:15 99.7 F H 104 H 18 113/67 100 05/05/20 11:04 99.8 F H 102 H 18 125/51 99 05/05/20 10:58 99.6 F 104 H 20 116/59 99 05/05/20 08:18 102.2 F H 05/05/20 07:09 99.8 F H 05/05/20 06:00 99.1 F 78 18 114/67 98 05/05/20 04:34 98.6 F 89 16 105/60 99 05/05/20 02:32 102.1 F H 109 H 24 122/61 97 Intake and Output 05/04/20 05/05/20 05/05/20 22:59 06:59 14:59 Intake Total 0 Balance 0 Intake: Blood Product 0 Rc Irr As1 Unit 0 [id number] Other: Weight 78.925 kg - Constitutional mildly diaphoretic, generalized weakness - EENT Eyes: EOMI, PERRLA ENT: hearing grossly normal, normal oropharynx - Neck Neck: no lymphadenopathy - Respiratory Respiratory: bilateral: CTA - Cardiovascular Rhythm: regular Heart sounds: normal: S1, S2 - Gastrointestinal General gastrointestinal: normal bowel sounds, soft, tenderness to palpation, especially LLQ - Integumentary Integumentary: rash (extensive drug rash on chest, abdomen and lower extremities. Showing significant resolution. Petechial-type rash on lower extremities below knee, also improved) - Musculoskeletal Musculoskeletal: generalized weakness, strength equal bilaterally - Psychiatric Psychiatric: A&O x's 3, appropriate affect Results CBC & Chem 7: 05/05/20 03:33 05/05/20 03:33 Labs: Abnormal Lab Results - Last 24 Hours (Table) 05/05/20 05/05/20 05/05/20 Range/Units 03:33 03:33 03:42 WBC 0.2 L* (3.8-10.6) k/uL RBC 1.92 L (4.30-5.90) m/uL Hgb 6.4 L* D (13.0-17.5) gm/dL Hct 17.9 L* (39.0-53.0) % Plt Count 4 L* D (150-450) k/uL Sodium 134 L (137-145) mmol/L Glucose 127 H (74-99) mg/dL Plasma Lactic Acid Gonsalo 2.1 H* (0.7-2.0) mmol/L Calcium 8.3 L (8.4-10.2) mg/dL AST 13 L (17-59) U/L Total Protein 6.1 L (6.3-8.2) g/dL Albumin 3.3 L (3.5-5.0) g/dL Urine Protein (Negative) Urine Mucus (None) /hpf Crossmatch 05/05/20 05/05/20 05/05/20 Range/Units 04:06 07:00 07:40 WBC (3.8-10.6) k/uL RBC (4.30-5.90) m/uL Hgb (13.0-17.5) gm/dL Hct (39.0-53.0) % Plt Count (150-450) k/uL Sodium (137-145) mmol/L Glucose (74-99) mg/dL Plasma Lactic Acid Gonsalo 3.0 H* (0.7-2.0) mmol/L Calcium (8.4-10.2) mg/dL AST (17-59) U/L Total Protein (6.3-8.2) g/dL Albumin (3.5-5.0) g/dL Urine Protein 1+ H (Negative) Urine Mucus Few H (None) /hpf Crossmatch See Detail CT scan - abdomen: report reviewed CT scan - pelvis: report reviewed Assessment and Plan Plan: Assessment and Plan Neutropenic Diverticulitis/colitis: - KEEP NPO please - Will advance diet slowly and monitor by clinical assessment daily Acute myeloid leukemia - Patient last bone marrow acheiving remission and plan for consultation with transplant team in May Pancytopenia due to antineoplastic chemotherapy Irradiated BLOOD Products Only Transfuse to keep hemoglobin 7 or higher. Platelets will continue to be transfused if symptomatic or less than 10,000. - Transfuse today PRBC, Transufuse Platelets today ALthough bone marrow technically revealed remission, 2% blasts present, therefore hold off on GCSF and continue to monitor risks verse benefit Antibiotics and NPO Plan: Continue aggressive supportive care and follow-up in office with primary oncologist after discharge. Physician Attest: I have completed the full history and physical and agree with above dictation by Ruth Monzon NP, dictated as a scribe
[2020-05-05] MEDS: FAMOTIDINE 20 MG TAB PO SCH (21:28)
[2020-05-06] MEDS: ACETAMINOPHEN TAB 325 MG TAB PO PRN ×4 (02:07→21:33)
[2020-05-06] MEDS: CEFEPIME 2 GM in SODIUM CHLORIDE 0.9% 100 ML IVPB SCH ×3 (04:57→21:24)
[2020-05-06] MEDS: clonazePAM 1 MG TAB PO SCH ×2 (08:52→20:55)
[2020-05-06] MEDS: FAMOTIDINE 20 MG TAB PO SCH ×2 (08:53→20:55)
[2020-05-06] MEDS: FLUoxetine HCL 20 MG CAP PO SCH (08:53)
[2020-05-06] MEDS: ACYCLOVIR 200 MG CAP PO SCH ×2 (08:53→20:56)
[2020-05-06] MEDS: hydrOXYzine pamoate 25 MG CAP PO SCH ×3 (08:53→20:55)
[2020-05-06] MEDS: FLUCONAZOLE 100 MG TAB PO SCH (08:54)
[2020-05-06] MEDS: metroNIDAZOLE-NS PMX 500 MG in SALINE 1 100ML.BAG IVPB SCH ×2 (08:54→15:39)
[2020-05-06 09:30] LABS: MCH 33.4 pg (25.0-35.0); MCHC 36.9 g/dL (31.0-37.0); MCV 90.4 fL (80.0-100.0); Mean Platelet Volume 8.3; RBC 2.07 m/uL (4.30-5.90); RDW 14.6 % (11.5-15.5)
[2020-05-06 09:34] LABS: WBC 0.3 k/uL (3.8-10.6)
[2020-05-06 09:35] LABS: HCT 18.7 % (39.0-53.0); HGB 6.9 gm/dL (13.0-17.5)
[2020-05-06 09:36] LABS: Platelet Count 14 k/uL (150-450)
[2020-05-06 09:46] LABS: African American GFR (CKD) >90 (>60 ml/min/1.73 sqM); Anion Gap 6 mmol/L; Blood Urea Nitrogen 11 mg/dL (9-20); Calcium 7.7 mg/dL (8.4-10.2); Carbon Dioxide 22 mmol/L (22-30); Chloride 108 mmol/L (98-107); Glucose 123 mg/dL (74-99); Non-African American GFR(CKD) >90 (>60 ml/min/1.73 sqM); Potassium 3.6 mmol/L (3.5-5.1); Sodium 136 mmol/L (137-145)
[2020-05-06] MEDS: DEXTROSE 5%-0.9% NACL 1,000 ML IV SCH ×2 (09:57→12:34)
--- NOTE | 2020-05-06 10:18 | P.PN ---
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 Patient is nothing by mouth as per Oncology., Patient was started on D5 which will be switched to D5 normal saline. Patient probably can be started on clear liquid diet patient is presently on cefepime and metronidazole. Still has some abdominal pain although significantly improved compared to yesterday was complaining of diarrhea. Patient received 1 unit of irradiated PRBC along with platelet transfusion present hemoglobin is 6.9 platelets 14,000. Constitutional: Denied any fatigue denied any fever. Cardio vascular: denied any chest pain, palpitations Gastrointestinal denied any nausea vomiting Pulmonary: As mentioned in HPI Neurologic denied any new focal deficits All inpatient medications were reviewed and appropriate changes in these medications as dictated in the interval history and assessment and plan. Objective - Vital Signs Vital signs: Vital Signs Temp 102.6 F H 05/06/20 08:46 Pulse 107 H 05/06/20 08:46 Resp 18 05/06/20 08:46 BP 114/58 05/06/20 08:46 Pulse Ox 98 05/06/20 08:46 Intake & Output 05/05/20 05/06/20 05/06/20 18:59 06:59 18:59 Intake Total 0 Balance 0 Weight 78.925 kg 79.5 kg Intake: Oral 0 Blood Product 0 Platelet Irr Pheresis Pas 0 -C Unit [id number] Rc Irr As1 Unit 0 [id number] Other: # Voids 1 # Bowel Movements 1 - Exam PHYSICAL EXAMINATION: GENERAL: The patient is alert and oriented x3, not in any acute distress. Well developed, well nourished. HEENT: Pupils are round and equally reacting to light. EOMI. No scleral icterus. Does have conjunctival pallor. Normocephalic, atraumatic. No pharyngeal erythema. No thyromegaly. CARDIOVASCULAR: S1 and S2 present. No murmurs, rubs, or gallops. PULMONARY: Chest is clear to auscultation, no wheezing or crackles. ABDOMEN: Soft, nontender, nondistended, normoactive bowel sounds. No palpable organomegaly. MUSCULOSKELETAL: No joint swelling or deformity. EXTREMITIES: No cyanosis, clubbing, or pedal edema. NEUROLOGICAL: Gross neurological examination did not reveal any focal deficits. SKIN: Diffuse petechial rash secondary to thrombocytopenia - Labs CBC & Chem 7: 05/06/20 09:01 05/06/20 09:01 Labs: Abnormal Lab Results - Last 24 Hours (Table) 05/05/20 05/05/20 05/05/20 Range/Units 04:06 14:51 17:03 WBC (3.8-10.6) k/uL RBC (4.30-5.90) m/uL Hgb (13.0-17.5) gm/dL Hct (39.0-53.0) % Plt Count (150-450) k/uL APTT 32.7 H (22.0-30.0) sec Fibrinogen 617 H (200-500) mg/dL Sodium (137-145) mmol/L Chloride (98-107) mmol/L Glucose (74-99) mg/dL POC Glucose (mg/dL) 117 H (75-99) mg/dL Calcium (8.4-10.2) mg/dL Crossmatch See Detail 05/06/20 05/06/20 Range/Units 09:01 09:01 WBC 0.3 L* (3.8-10.6) k/uL RBC 2.07 L (4.30-5.90) m/uL Hgb 6.9 L* (13.0-17.5) gm/dL Hct 18.7 L* (39.0-53.0) % Plt Count 14 L* D (150-450) k/uL APTT (22.0-30.0) sec Fibrinogen (200-500) mg/dL Sodium 136 L (137-145) mmol/L Chloride 108 H (98-107) mmol/L Glucose 123 H (74-99) mg/dL POC Glucose (mg/dL) (75-99) mg/dL Calcium 7.7 L (8.4-10.2) mg/dL Crossmatch Microbiology - Last 24 Hours (Table) 05/05/20 03:42 Blood Culture - Preliminary Blood No Growth after 24 hours 05/05/20 03:33 Blood Culture - Preliminary Blood No Growth after 24 hours Assessment and Plan Plan: -Severe Sepsis, febrile neutropenia: Secondary to most probably diverticulitis: Patient will be continued on cefepime, metronidazole will be added and will continue with the prophylactic acyclovir and fluconazole. Lactic acid improved -Acute myeloblastic leukemia: Oncology was consulted patient received chemotherapy recently -Pancytopenia with very low hemoglobin patient received h irradiated RBC and platelet transfusion -Hypovolemic hyponatremia: Improved now -Hypertension -Hyperlipidemia -Depression Because of her severe thrombocytopenia patient cannot receive any pharmacologic DVT prophylaxis with Pepcid will be ordered for GI prophylaxis
--- NOTE | 2020-05-06 15:25 | PN ---
PROGRESS NOTE DATE OF SERVICE: May 06, 2020. CHIEF COMPLAINT: Abdominal pain. Flex is seen today as a followup. He feels tired, but overall he feels fine. He has been n.p.o. except for ice chips. He continues to have some abdominal pain. No nausea or vomiting and he did have a bowel movement with some black stool. He denies any fever or chills. CURRENT MEDICATION: Include Tylenol as needed, Zovirax 400 mg b.i.d., cefepime 2 g IV piggyback every 8 hours. Klonopin 1 mg p.o. b.i.d. He is on Pepcid 20 mg b.i.d., Diflucan 100 mg daily, Prozac 40 mg daily. Vistaril 50 mg t.i.d. Flagyl 500 mg IV piggyback every 8 hours. PHYSICAL EXAMINATION: He is alert, oriented x3. He does not appear to be in no distress. His vital signs are temperature 98.9, afebrile, pulse 79 and regular, respiration rate 16, blood pressure 104/55. HEENT: Normocephalic, atraumatic. No obvious icterus. Oral mucosa are intact. NECK: Supple. CHEST equal expansion bilaterally. LUNGS: Clear to auscultation. HEART is regular rate and rhythm. ABDOMEN: Soft. There is tenderness in the left lower quadrant. No ascites. No organomegaly. EXTREMITIES: No edema. SKIN reveals multiple petechiae is noted on his lower extremities and upper extremities as well. LABORATORY DATA: WBC 0.3, hemoglobin is 6.9, hematocrit 18.7, platelets are 14. Sodium 139, potassium 3.6, chloride 108, BUN is 6, creatinine 0.8. IMPRESSION: 1. Febrile neutropenia is probably related to diverticulitis. He is currently on broad-spectrum antibiotics and he appears to be clinically stable. 2. Acute myelogenous leukemia. His last bone marrow biopsy revealed a remission and he is now in the process to consider allogeneic stem cell transplantation. 3. Pancytopenia secondary to above. RECOMMENDATION: 1. Continue supportive care. 2. Continue broad-spectrum antibiotics. 3. The patient will be transfused with 1 unit of radiated packed red blood cells and 1 unit of single donor platelets. Thank you very much. MMODL / IJN: [id number] /
[2020-05-07] MEDS: metroNIDAZOLE-NS PMX 500 MG in SALINE 1 100ML.BAG IVPB SCH ×4 (01:20→23:55)
[2020-05-07] MEDS: ACETAMINOPHEN TAB 325 MG TAB PO PRN ×4 (03:19→21:45)
[2020-05-07] MEDS: DEXTROSE 5%-0.9% NACL 1,000 ML IV SCH ×3 (05:13→15:48)
[2020-05-07] MEDS: CEFEPIME 2 GM in SODIUM CHLORIDE 0.9% 100 ML IVPB SCH ×3 (05:13→21:07)
[2020-05-07] MEDS: hydrOXYzine pamoate 25 MG CAP PO SCH ×3 (08:17→21:07)
[2020-05-07] MEDS: clonazePAM 1 MG TAB PO SCH ×2 (08:17→21:07)
[2020-05-07] MEDS: FLUoxetine HCL 20 MG CAP PO SCH (08:17)
[2020-05-07] MEDS: FAMOTIDINE 20 MG TAB PO SCH ×2 (08:17→21:07)
[2020-05-07] MEDS: FLUCONAZOLE 100 MG TAB PO SCH (08:17)
[2020-05-07] MEDS: ACYCLOVIR 200 MG CAP PO SCH ×2 (08:17→21:46)
--- NOTE | 2020-05-07 09:12 | P.PN ---
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 Patient is nothing by mouth as per Oncology., Patient was started on D5 which will be switched to D5 normal saline. Patient probably can be started on clear liquid diet patient is presently on cefepime and metronidazole. Still has some abdominal pain although significantly improved compared to yesterday was complaining of diarrhea. Patient received 1 unit of irradiated PRBC along with platelet transfusion present hemoglobin is 6.9 platelets 14,000. 05/07/2020 Patient received one more unit of irradiated PRBC along with platelets as today. Patient is still having fevers part of which is probably from leukemia infecti ous disease will be consulted to get all the cultures are negative patient remains nothing by mouth we'll check a check with the oncology patient can be started on clear liquid diet. Patient is still having abdominal pain and does have abdominal tenderness as well. Patient remains on cefepime and metronidazole. Constitutional: Denied any fatigue denied any fever. Cardio vascular: denied any chest pain, palpitations Gastrointestinal denied any nausea vomiting Pulmonary: As mentioned in HPI Neurologic denied any new focal deficits All inpatient medications were reviewed and appropriate changes in these medications as dictated in the interval history and assessment and plan. Objective - Vital Signs Vital signs: Vital Signs Temp 99.3 F 05/07/20 08:14 Pulse 87 05/07/20 08:14 Resp 18 05/07/20 08:14 BP 103/60 05/07/20 08:14 Pulse Ox 98 05/07/20 08:14 Intake & Output 05/06/20 05/07/20 05/07/20 18:59 06:59 18:59 Intake Total 336 0 Output Total 650 Balance -314 0 Intake: Blood Product 336 0 Platelet Pheresis Pas 336 Psoralen Unit [id number] Rc Irr As1 Unit 0 0 [id number] Output: Urine 650 Other: Voiding Method Toilet Urinal # Voids 1 - Exam PHYSICAL EXAMINATION: GENERAL: The patient is alert and oriented x3, not in any acute distress. Well developed, well nourished. HEENT: Pupils are round and equally reacting to light. EOMI. No scleral icterus. Does have conjunctival pallor. Normocephalic, atraumatic. No pharyngeal erythema. No thyromegaly. CARDIOVASCULAR: S1 and S2 present. No murmurs, rubs, or gallops. PULMONARY: Chest is clear to auscultation, no wheezing or crackles. ABDOMEN: Soft, nontender, nondistended, normoactive bowel sounds. No palpable organomegaly. MUSCULOSKELETAL: No joint swelling or deformity. EXTREMITIES: No cyanosis, clubbing, or pedal edema. NEUROLOGICAL: Gross neurological examination did not reveal any focal deficits. SKIN: Diffuse petechial rash secondary to thrombocytopenia - Labs CBC & Chem 7: 05/06/20 09:01 05/06/20 09:01 Labs: Abnormal Lab Results - Last 24 Hours (Table) 05/05/20 05/06/20 05/06/20 Range/Units 04:06 09:01 09:01 WBC 0.3 L* (3.8-10.6) k/uL RBC 2.07 L (4.30-5.90) m/uL Hgb 6.9 L* (13.0-17.5) gm/dL Hct 18.7 L* (39.0-53.0) % Plt Count 14 L* D (150-450) k/uL Sodium 136 L (137-145) mmol/L Chloride 108 H (98-107) mmol/L Glucose 123 H (74-99) mg/dL Calcium 7.7 L (8.4-10.2) mg/dL Crossmatch See Detail Microbiology - Last 24 Hours (Table) 05/05/20 03:42 Blood Culture - Preliminary Blood No Growth after 48 hours 05/05/20 03:33 Blood Culture - Preliminary Blood No Growth after 48 hours 05/05/20 20:11 Stool Culture - Preliminary Stool Assessment and Plan Plan: -Severe Sepsis, febrile neutropenia: Secondary to most probably diverticulitis: Patient will be continued on cefepime, metronidazole will be added and will continue with the prophylactic acyclovir and fluconazole. Lactic acid improved. Patient can use to have fevers infectious disease will be consulted. -Acute myeloblastic leukemia: Oncology was consulted patient received chem otherapy recently -Pancytopenia with very low hemoglobin patient received h irradiated RBCX2 and platelet transfusionX2 -Hypovolemic hyponatremia: Improved now -Hypertension -Hyperlipidemia -Depression Because of her severe thrombocytopenia patient cannot receive any pharmacologic DVT prophylaxis with Pepcid will be ordered for GI prophylaxis
[2020-05-07 09:14] LABS: HCT 22.9 % (39.0-53.0); HGB 7.9 gm/dL (13.0-17.5); MCH 32.3 pg (25.0-35.0); MCHC 34.4 g/dL (31.0-37.0); Mean Platelet Volume 7.7; RBC 2.44 m/uL (4.30-5.90); RDW 15.3 % (11.5-15.5)
[2020-05-07 09:21] LABS: Platelet Count 9 k/uL (150-450); WBC 0.5 k/uL (3.8-10.6)
[2020-05-07 09:24] LABS: African American GFR (CKD) >90 (>60 ml/min/1.73 sqM); Anion Gap 6 mmol/L; Blood Urea Nitrogen 16 mg/dL (9-20); Calcium 7.8 mg/dL (8.4-10.2); Carbon Dioxide 22 mmol/L (22-30); Chloride 110 mmol/L (98-107); Glucose 98 mg/dL (74-99); Non-African American GFR(CKD) >90 (>60 ml/min/1.73 sqM); Potassium 3.5 mmol/L (3.5-5.1); Sodium 138 mmol/L (137-145)
--- NOTE | 2020-05-07 23:16 | CONS ---
CONSULTATION DATE OF SERVICE: 05/07/2020 REASON FOR CONSULTATION: Febrile neutropenia. HISTORY OF PRESENT ILLNESS: The patient is a 69 year old male with a past medical history of acute myeloid leukemia in this patient who is status post induction chemotherapy. Patient also has a problem with a PICC line infection and Pseudomonas bacteremia that has been adequately treated. The patient subsequently has a PICC line on the right upper extremity and has recently completed a consolidative chemotherapy as the patient is currently waiting for the bone marrow transplant. The patient [facility] on Tuesday, May 05, 2020 for evaluation of fever and chills that had been going on for a day before presentation to hospital. The patient's last chemo was about a week ago prior to that. The patient denies having any headache or URI symptoms. Denies having any chest pain or shortness of breath. Minimal cough. The patient complaining of pain mostly left lower abdominal area, more of a dull aching pain intensity 5-6 out of 10 with no radiation with associated diarrhea but no constipation. No blood or mucus in the stools. The patient on presentation to the hospital did have a fever of 100.8, subsequently spiked a fever of 102.6 degrees Fahrenheit. The patient did have a white count of 0.3, hemoglobin 6.9 with platelet count of 14. Blood culture has been obtained which is currently pending. The patient did have a CT of abdomen and pelvis with evidence of diverticulitis. He has been treated with cefepime 2 g and Flagyl. Infectious Disease was consulted for further management of antibiotic therapy for underlying febrile neutropenia. REVIEW OF SYSTEMS: Positive points have been mentioned in HPI. Rest of systems are negative. PAST MEDICAL HISTORY: Significant for acute myeloid leukemia, Pseudomonas bacteremia with PICC line infection, CVA, TIA, hypertension, hyperlipidemia, left sided spontaneous pneumothorax. PAST SURGICAL HISTORY: ACL repair, a PICC line placement and removal. SOCIAL HISTORY: Remote history of smoking. No drinking or drug use. FAMILY HISTORY: No pertinent findings noticed. ALLERGIES: No known drug allergies. MEDICATIONS: The patient is currently on cefepime 2 grams q.8 hours and Tylenol, Zovirax, Klonopin, Flagyl, Diflucan, Prozac, Restoril, Narcan. PHYSICAL EXAMINATION: Blood pressure 104/88 with a pulse of 66, temperature 100.4. He is 98% on room air. General description is an elderly male lying in bed in no distress. No tachypnea or accessory muscle of respiration use. HEENT: Shows pallor. No scleral icterus. Oral mucous membranes dry. No pharyngeal erythema or thrush. NECK: Trachea central. No thyromegaly. LUNGS: Unlabored breathing, decreased breath sounds at bases. No wheeze. HEART: S1, S2. Regular rate and rhythm. ABDOMEN: Soft. Mildly tender in left lower quadrant. No guarding. No rigidity. EXTREMITIES: No edema of the feet. SKIN examination: No rash or mass palpable. NEUROLOGICAL: Patient is awake, alert, oriented times three. Mood and affect normal. LABS: Hemoglobin 7.1, white count 0.5, BUN of 16, creatinine 0.79. Blood culture has been negative so far. CT abdomen and pelvis, no evidence of diverticulitis. DIAGNOSTIC IMPRESSION AND PLAN: Patient admitted to the hospital with febrile neutropenia in this patient with underlying acute myeloid leukemia with last chemo completed on April 28 with right PICC line presented to the hospital with fever, abdominal pain. Source could be more likely diverticulitis and we will need to cover for enteric gram-negative both aerobes and anaerobes as no other obvious focus of infection. PLAN: 1. Cefepime 2 grams q.8 hours along with Flagyl 500 should provide adequate antibiotic coverage for diverticulitis and febrile neutropenia. 2. IV fluids. 3. We will follow on his clinical condition and further adjust medication if needed. Thank you for this consultation. Will follow this patient along with you. MMODL / IJN: [id number] /
[2020-05-08] MEDS: ACETAMINOPHEN TAB 325 MG TAB PO PRN (04:22)
[2020-05-08] MEDS: CEFEPIME 2 GM in SODIUM CHLORIDE 0.9% 100 ML IVPB SCH ×3 (04:22→19:33)
[2020-05-08 07:47] LABS: HCT 21.8 % (39.0-53.0); HGB 7.6 gm/dL (13.0-17.5); MCH 32.1 pg (25.0-35.0); MCHC 34.9 g/dL (31.0-37.0); MCV 92.1 fL (80.0-100.0); Mean Platelet Volume 7.1; RBC 2.36 m/uL (4.30-5.90); RDW 14.7 % (11.5-15.5)
[2020-05-08 07:49] LABS: Platelet Count 10 k/uL (150-450); WBC 0.8 k/uL (3.8-10.6)
[2020-05-08 08:22] LABS: African American GFR (CKD) >90 (>60 ml/min/1.73 sqM); Anion Gap 7 mmol/L; Blood Urea Nitrogen 13 mg/dL (9-20); Calcium 7.8 mg/dL (8.4-10.2); Carbon Dioxide 23 mmol/L (22-30); Chloride 109 mmol/L (98-107); Glucose 106 mg/dL (74-99); Non-African American GFR(CKD) >90 (>60 ml/min/1.73 sqM); Potassium 3.4 mmol/L (3.5-5.1); Sodium 139 mmol/L (137-145)
[2020-05-08] MEDS: hydrOXYzine pamoate 25 MG CAP PO SCH ×3 (08:34→20:53)
[2020-05-08] MEDS: FLUCONAZOLE 100 MG TAB PO SCH (08:35)
[2020-05-08] MEDS: FLUoxetine HCL 20 MG CAP PO SCH (08:35)
[2020-05-08] MEDS: FAMOTIDINE 20 MG TAB PO SCH ×2 (08:35→20:53)
[2020-05-08] MEDS: metroNIDAZOLE-NS PMX 500 MG in SALINE 1 100ML.BAG IVPB SCH ×2 (08:36→16:21)
[2020-05-08] MEDS: ACYCLOVIR 200 MG CAP PO SCH ×2 (08:36→20:53)
[2020-05-08] MEDS: clonazePAM 1 MG TAB PO SCH ×2 (08:36→20:53)
--- NOTE | 2020-05-08 09:52 | P.PN ---
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 Patient is nothing by mouth as per Oncology., Patient was started on D5 which will be switched to D5 normal saline. Patient probably can be started on clear liquid diet patient is presently on cefepime and metronidazole. Still has some abdominal pain although significantly improved compared to yesterday was complaining of diarrhea. Patient received 1 unit of irradiated PRBC along with platelet transfusion present hemoglobin is 6.9 platelets 14,000. 05/07/2020 Patient received one more unit of irradiated PRBC along with platelets as today. Patient is still having fevers part of which is probably from leukemia infecti ous disease will be consulted to get all the cultures are negative patient remains nothing by mouth we'll check a check with the oncology patient can be started on clear liquid diet. Patient is still having abdominal pain and does have abdominal tenderness as well. Patient remains on cefepime and metronidazole. 05/08/2020 Patient's abdominal pain significantly improved can use to have fevers. Patient will be advanced to full liquid diet. Her pain improved Constitutional: Denied any fatigue denied any fever. Cardio vascular: denied any chest pain, palpitations Gastrointestinal denied any nausea vomiting Pulmonary: no sob Neurologic denied any new focal deficits All inpatient medications were reviewed and appropriate changes in these medications as dictated in the interval history and assessment and plan. Objective - Vital Signs Vital signs: Vital Signs Temp 100.6 F H 05/08/20 03:58 Pulse 80 05/08/20 03:58 Resp 17 05/08/20 03:58 BP 110/69 05/08/20 03:58 Pulse Ox 99 05/08/20 03:58 Intake & Output 05/07/20 05/08/20 05/08/20 18:59 06:59 18:59 Intake Total 1943 Output Total 900 120 Balance 1043 -120 Weight 80.1 kg Intake: Oral 1680 Blood Product 263 Platelet Pheresis Pas 263 Psoralen Unit [id number] Output: Urine 900 120 Other: Voiding Method Toilet Toilet Urinal Urinal # Voids 0 1 # Bowel Movements 1 - Exam PHYSICAL EXAMINATION: GENERAL: The patient is alert and oriented x3, not in any acute distress. Well developed, well nourished. HEENT: Pupils are round and equally reacting to light. EOMI. No scleral icterus. Does have conjunctival pallor. Normocephalic, atraumatic. No pharyngeal erythema. No thyromegaly. CARDIOVASCULAR: S1 and S2 present. No murmurs, rubs, or gallops. PULMONARY: Chest is clear to auscultation, no wheezing or crackles. ABDOMEN: Soft, nontender, nondistended, normoactive bowel sounds. No palpable organomegaly. MUSCULOSKELETAL: No joint swelling or deformity. EXTREMITIES: No cyanosis, clubbing, or pedal edema. NEUROLOGICAL: Gross neurological examination did not reveal any focal deficits. SKIN: Diffuse petechial rash secondary to thrombocytopenia - Labs CBC & Chem 7: 05/08/20 07:22 05/08/20 07:22 Labs: Abnormal Lab Results - Last 24 Hours (Table) 05/08/20 05/08/20 Range/Units 07:22 07:22 WBC 0.8 L* (3.8-10.6) k/uL RBC 2.36 L (4.30-5.90) m/uL Hgb 7.6 L (13.0-17.5) gm/dL Hct 21.8 L (39.0-53.0) % Plt Count 10 L* (150-450) k/uL Potassium 3.4 L (3.5-5.1) mmol/L Chloride 109 H (98-107) mmol/L Glucose 106 H (74-99) mg/dL Calcium 7.8 L (8.4-10.2) mg/dL Microbiology - Last 24 Hours (Table) 05/05/20 03:42 Blood Culture - Preliminary Blood No Growth after 72 hours 05/05/20 03:33 Blood Culture - Preliminary Blood No Growth after 72 hours Assessment and Plan Plan: -Severe Sepsis, febrile neutropenia: Secondary to most probably diverticulitis: Patient will be continued on cefepime, metronidazole will be added and will continue with the prophylactic acyclovir and fluconazole. Lactic acid improved. Patient can use to have fevers infectious disease will be consulted. -Acute myeloblastic leukemia: Oncology was consulted patient received chemotherapy recently -Pancytopenia with very low hemoglobin patient received h irradiated RBCX2 and platelet transfusionX2 -Hypovolemic hyponatremia: Improved now -Hypertension -Hyperlipidemia -Depression Because of her severe thrombocytopenia patient cannot receive any pharmacologic DVT prophylaxis with Pepcid will be ordered for GI prophylaxis
[2020-05-08] MEDS: DEXTROSE 5%-0.9% NACL 1,000 ML IV SCH ×3 (12:41→20:54)
[2020-05-08] MEDS: MAG HYDROX/AL HYDROX/SIMETH 30 ML, LIDOCAINE VISCOUS 30 ML, diphenhydrAMINE ELIXIR 75 M... PO SCH ×12 (16:21→20:55)
[2020-05-08] MEDS: SALT AND SODA MOUTHWASH 1,000 ML PO SCH ×3 (16:21→19:33)
--- NOTE | 2020-05-08 21:57 | PN ---
PROGRESS NOTE DATE OF SERVICE: 05/08/2020 REASON FOR FOLLOWUP: Febrile neutropenia and diverticulitis. INTERVAL HISTORY: The patient is currently afebrile. The patient is breathing comfortably. The patient denies having any chest pain or shortness of breath or cough. No nausea, no vomiting. Abdominal pain has improved. Diarrhea has slowed down. PHYSICAL EXAMINATION: Blood pressure 102/63 with a pulse of 80, temperature 99. He is 98% on room air. General description is an elderly male lying in bed in no distress. RESPIRATORY SYSTEM: Unlabored breathing. Clear to auscultation anteriorly. HEART: S1, S2. Regular rate and rhythm. ABDOMEN: Soft. No tenderness. No guarding or rigidity. LABS: Hemoglobin 7.6, white count 0.8, BUN of 13, creatinine 0.77. DIAGNOSTIC IMPRESSION AND PLAN: Patient with febrile neutropenia. Source is likely diverticulitis. Patient is clinically responding to cefepime and Flagyl; to continue while monitoring his clinical course closely. Continue with supportive care. MMODL / IJN: [id number] /
[2020-05-09] MEDS: SALT AND SODA MOUTHWASH 1,000 ML PO SCH ×6 (00:19→23:21)
[2020-05-09] MEDS: metroNIDAZOLE-NS PMX 500 MG in SALINE 1 100ML.BAG IVPB SCH ×3 (00:20→20:57)
[2020-05-09] MEDS: CEFEPIME 2 GM in SODIUM CHLORIDE 0.9% 100 ML IVPB SCH ×3 (04:13→23:20)
[2020-05-09 06:40] LABS: MCH 32.7 pg (25.0-35.0); MCHC 35.5 g/dL (31.0-37.0); Mean Platelet Volume 7.8; RBC 1.99 m/uL (4.30-5.90); RDW 14.3 % (11.5-15.5)
[2020-05-09 06:54] LABS: WBC 0.6 k/uL (3.8-10.6)
[2020-05-09 06:58] LABS: HCT 18.3 % (39.0-53.0); HGB 6.5 gm/dL (13.0-17.5); Platelet Count 6 k/uL (150-450)
[2020-05-09] MEDS: DEXTROSE 5%-0.9% NACL 1,000 ML IV SCH ×2 (09:08→11:10)
[2020-05-09] MEDS: FLUCONAZOLE 100 MG TAB PO SCH (09:09)
[2020-05-09] MEDS: MAG HYDROX/AL HYDROX/SIMETH 30 ML, LIDOCAINE VISCOUS 30 ML, diphenhydrAMINE ELIXIR 75 M... PO SCH ×12 (09:10→20:59)
[2020-05-09] MEDS: FAMOTIDINE 20 MG TAB PO SCH ×2 (09:10→20:57)
[2020-05-09] MEDS: clonazePAM 1 MG TAB PO SCH ×2 (09:10→20:57)
[2020-05-09] MEDS: hydrOXYzine pamoate 25 MG CAP PO SCH ×3 (09:10→21:11)
[2020-05-09] MEDS: ACYCLOVIR 200 MG CAP PO SCH ×2 (09:10→20:57)
[2020-05-09] MEDS: FLUoxetine HCL 20 MG CAP PO SCH (09:10)
[2020-05-09 10:06] LABS: African American GFR (CKD) >90 (>60 ml/min/1.73 sqM); Anion Gap 4 mmol/L; Blood Urea Nitrogen 12 mg/dL (9-20); Calcium 7.5 mg/dL (8.4-10.2); Carbon Dioxide 24 mmol/L (22-30); Chloride 111 mmol/L (98-107); Glucose 101 mg/dL (74-99); Non-African American GFR(CKD) >90 (>60 ml/min/1.73 sqM); Potassium 3.3 mmol/L (3.5-5.1); Sodium 139 mmol/L (137-145)
--- NOTE | 2020-05-09 10:40 | P.PN ---
Subjective Progress Note Date: 05/08/20 Principal diagnosis: Febrile neutropenia, recent consolidation treatment for AML In follow-up today patient denies having chills, he did have a documented fever of 100.6, he denies any sweats, has some mild oral irritation, denies sore throat, earache, nausea or vomiting, new or unusual cough, difficulty breathing, mild lower abdominal discomfort, no dysuria or hematuria, he had watery diarrhea this a.m., denied blood in it. He has petechiae on the lower extremities, he states it's better than it has been. Objective - Vital Signs Vital signs: Vital Signs Temp 98.7 F 05/08/20 08:00 Pulse 80 05/08/20 08:00 Resp 18 05/08/20 08:00 BP 96/56 05/08/20 08:00 Pulse Ox 96 05/08/20 08:00 Intake & Output 05/07/20 05/08/20 05/08/20 18:59 06:59 18:59 Intake Total 1943 Output Total 900 120 Balance 1043 -120 Weight 80.1 kg Intake: Oral 1680 Blood Product 263 Platelet Pheresis Pas 263 Psoralen Unit [id number] Output: Urine 900 120 Other: Voiding Method Toilet Toilet Urinal Urinal # Voids 0 1 # Bowel Movements 1 - Constitutional Constitutional Comment(s): rt lower gumline ulceration General appearance: Present: average body habitus, cooperative, no acute distress - EENT Eyes: Present: anicteric sclerae, EOMI ENT: Present: hearing grossly normal, thrush - Respiratory Respiratory: bilateral: CTA - Cardiovascular Rhythm: regular Heart sounds: normal: S1, S2 Abnormal Heart Sounds: Absent: systolic murmur, diastolic murmur, rub, S3 Gallop, S4 Gallop, click, other - Peripheral edema leg Peripheral Edema: bilateral: None - Gastrointestinal General gastrointestinal: Present: distended, hyperactive bowel sounds, soft, tenderness (LLQ some rebound irritation) - Neurologic Neurologic: Present: CNII-XII intact - Musculoskeletal Musculoskeletal: Present: generalized weakness, strength equal bilaterally - Psychiatric Psychiatric: Present: A&O x's 3, appropriate affect, intact judgment & insight - Labs CBC & Chem 7: 05/08/20 07:22 05/08/20 07:22 Labs: Abnormal Lab Results - Last 24 Hours (Table) 05/08/20 05/08/20 Range/Units 07:22 07:22 WBC 0.8 L* (3.8-10.6) k/uL RBC 2.36 L (4.30-5.90) m/uL Hgb 7.6 L (13.0-17.5) gm/dL Hct 21.8 L (39.0-53.0) % Plt Count 10 L* (150-450) k/uL Potassium 3.4 L (3.5-5.1) mmol/L Chloride 109 H (98-107) mmol/L Glucose 106 H (74-99) mg/dL Calcium 7.8 L (8.4-10.2) mg/dL Microbiology - Last 24 Hours (Table) 05/05/20 03:42 Blood Culture - Preliminary Blood No Growth after 72 hours 05/05/20 03:33 Blood Culture - Preliminary Blood No Growth after 72 hours Assessment and Plan (1) Febrile neutropenia Narrative/Plan: Pancultures pending completion. Empiric antibiotics ordered. Infectious Disease following No G-CSF as patient is not considered a complete remission from his AML. Current Visit: Yes Status: Acute Priority: High Code(s): D70.9 - NEUTROPENIA, UNSPECIFIED; R50.81 - FEVER PRESENTING WITH CONDITIONS CLASSIFIED ELSEWHERE SNOMED Code(s): 756654162 (2) Mucositis (ulcerative) due to antineoplastic therapy Narrative/Plan: Grade 1-2, Salt and soda and kools solution ordered Current Visit: Yes Status: Acute Priority: High Code(s): K12.31 - ORAL MU COSITIS (ULCERATIVE) DUE TO ANTINEOPLASTIC THERAPY SNOMED Code(s): 685984464 (3) Pancytopenia due to antineoplastic chemotherapy Narrative/Plan: No transfusion today for hemoglobin of 7.6. Please transfuse for hemoglobin less than 7 or symptomatic Platelet count 10,000 today. Transfuse for a platelet count less than 10,000 or symptomatic. No anticoagulation, aspirin, NSAIDs or pharmacologic DVT prophylaxis. Patient states that petechiae on his legs is improved. Report. WBC 0.8. No GCSF as patient is not a confirmed remission, 2-3% residual blasts on his bone marrow biopsy status post induction. Current Visit: Yes Status: Acute Priority: High Code(s): D61.810 - ANTINEOPLASTIC CHEMOTHERAPY INDUCED PANCYTOPENIA; T45.1X5A - ADVERSE EFFECT OF ANTINEOPLASTIC AND IMMUNOSUP DRUGS, INIT SNOMED Code(s): 599023530353684 (4) Acute myeloid leukemia Narrative/Plan: Status post induction and one consolidation treatment with Vyxeos. He will be f ollowing up with BMT Current Visit: No Status: Acute Priority: High Code(s): C92.00 - ACUTE MY ELOBLASTIC LEUKEMIA, NOT HAVING ACHIEVED REMISSION SNOMED Code(s): 98496717
--- NOTE | 2020-05-09 10:45 | P.PN ---
Subjective Progress Note Date: 05/09/20 Principal diagnosis: Febrile neutropenia, recent consolidation treatment for AML In follow-up today patient has not had fever now for 24 hours. He is tolerating small amounts of clear liquids, denies sore throat, cough, nausea, he does have some left lower quadrant discomfort, only mild distention, denies urinary symptoms, petechiae on the bilateral lower extremities persists but, not progressive. Objective - Vital Signs Vital signs: Vital Signs Temp 98.8 F 05/09/20 07:55 Pulse 73 05/09/20 07:55 Resp 18 05/09/20 07:55 BP 99/57 05/09/20 07:55 Pulse Ox 98 05/09/20 07:55 Intake & Output 05/08/20 05/09/20 05/09/20 18:59 06:59 18:59 Intake Total 400 Output Total 500 200 Balance -100 -200 Intake: Oral 400 Output: Urine 500 200 Other: Voiding Method Toilet Urinal # Voids 0 2 2 # Bowel Movements 1 1 - Constitutional General appearance: Present: average body habitus, cooperative, no acute distress - EENT EENT Comment(s): mild oral irritation is improved Eyes: Present: anicteric sclerae, EOMI ENT: Present: hearing grossly normal - Respiratory Respiratory: bilateral: CTA - Cardiovascular Rhythm: regular Heart sounds: normal: S1, S2 Abnormal Heart Sounds: Absent: systolic murmur, diastolic murmur, rub, S3 Gallop, S4 Gallop, click, other - Peripheral edema leg Peripheral Edema: bilateral: None - Gastrointestinal General gastrointestinal: Present: normal bowel sounds, soft, tenderness - Integumentary Integumentary Comment(s): BLE petechiae - Neurologic Neurologic: Present: CNII-XII intact - Musculoskeletal Musculoskeletal: Present: strength equal bilaterally - Psychiatric Psychiatric: Present: A&O x's 3, appropriate affect, intact judgment & insight - Labs CBC & Chem 7: 05/09/20 06:01 05/09/20 06:01 Labs: Abnormal Lab Results - Last 24 Hours (Table) 05/05/20 05/09/20 05/09/20 Range/Units 04:06 06:01 06:01 WBC 0.6 L* (3.8-10.6) k/uL RBC 1.99 L (4.30-5.90) m/uL Hgb 6.5 L* (13.0-17.5) gm/dL Hct 18.3 L* (39.0-53.0) % Plt Count 6 L* (150-450) k/uL Potassium 3.3 L (3.5-5.1) mmol/L Chloride 111 H (98-107) mmol/L Glucose 101 H (74-99) mg/dL Calcium 7.5 L (8.4-10.2) mg/dL Crossmatch See Detail Microbiology - Last 24 Hours (Table) 05/05/20 03:42 Blood Culture - Preliminary Blood No Growth after 96 hours 05/05/20 03:33 Blood Culture - Preliminary Blood No Growth after 96 hours 05/05/20 20:11 Stool Culture - Preliminary Stool Assessment and Plan (1) Febrile neutropenia Narrative/Plan: BC neg 96 hours. Stool cult pending completion. Empiric antibiotics ordered. Infectious Disease following No G-CSF as patient is not considered a complete remission from his AML. No fever for 24 hours as of this AM. Current Visit: Yes Status: Acute Priority: High Code(s): D70.9 - NEUTROPENIA, UNSPECIFIED; R50.81 - FEVER PRESENTING WITH CONDITIONS CLASSIFIED ELSEWHERE SNOMED Code(s): 495512507 (2) Mucositis (ulcerative) due to antineoplastic therapy Narrative/Plan: Grade 1, improved today. Cont Salt and soda and kools solution. Current Visit: Yes Status: Acute Priority: High Code(s): K12.31 - ORAL MUCOSITIS (ULCERATIVE) DUE TO ANTINEOPLASTIC THERAPY SNOMED Code(s): 661085560 (3) Pancytopenia due to antineoplastic chemotherapy Narrative/Plan: Transfusion today for hemoglobin of 6.5. Platelet count 6,000 today. Transfuse 1 unit SDP. No anticoagulation, aspirin, NSAIDs or pharmacologic DVT prophylaxis. WBC 0.8. No GCSF as patient is not a confirmed remission, 2-3% residual blasts on his bone marrow biopsy status post induction. Irradiated blood products only Current Visit: Yes Status: Acute Priority: High Code(s): D61.810 - ANTINEOPLASTIC CHEMOTHERAPY INDUCED PANCYTOPENIA; T45.1X5A - ADVERSE EFFECT OF ANTINEOPLASTIC AND IMMUNOSUP DRUGS, INIT SNOMED Code(s): 838820538501308 (4) Acute myeloid leukemia Narrative/Plan: Status post induction and one consolidation treatment with Vyxeos. He will be following up with BMT. Current Visit: No Status: Acute Priority: High Code(s): C92.00 - ACUTE MYELOBLASTIC LEUKEMIA, NOT HAVING ACHIEVED REMISSION SNOMED Code(s): 51286781 Plan: Doctor attests: I performed a history and physical examination of this patient, developed impression and plan of care. Discussed with dictator. I agree with dictators note, documented as a scribe.
--- NOTE | 2020-05-09 14:53 | P.PN ---
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 Patient is nothing by mouth as per Oncology., Patient was started on D5 which will be switched to D5 normal saline. Patient probably can be started on clear liquid diet patient is pres ently on cefepime and metronidazole. Still has some abdominal pain although significantly improved compared to yesterday was complaining of diarrhea. Patient received 1 unit of irradiated PRBC along with platelet transfusion present hemoglobin is 6.9 platelets 14,000. 05/07/2020 Patient received one more unit of irradiated PRBC along with platelets as today. Patient is still having fevers part of which is probably from leukemia infectious disease will be consulted to get all the cultures are negative patient remains nothing by mouth we'll check a check with the oncology patient can be started on clear liquid diet. Patient is still having abdominal pain and does have abdominal tenderness as well. Patient remains on cefepime and metronidazole. 05/08/2020 Patient's abdominal pain significantly improved can use to have fevers. Patient diet will be advanced to full liquid diet. His pain improved 05/09/2020 Patient is seen and evaluated in follow-up with no acute overnight issues. Patient continues to have loose stool along with mild abdominal pain and patient's diet will continue with clear liquids. Patient is maintained on IV antibiotics in the form of cefepime and Flagyl and will continue at this time. Infectious disease is following. Patient's hemoglobin was found to be 6.5 and currently awaiting a unit of PRBCs. Potassium was also slightly low at 3.3 and will replace and repeat labs. Sodium is 139 and creatinine is 0.76. White blood count is 0.6 and platelets continue to be low at 6. Oncology is following closely. Constitutional: Denied any fatigue denied any fever. Cardio vascular: denied any chest pain, palpitations Gastrointestinal: denied any nausea vomiting, continues with loose stools Pulmonary: No reports of shortness of breath or cough Neurologic denied any new focal deficits All inpatient medications were reviewed and appropriate changes in these medications as dictated in the interval history and assessment and plan. Objective - Vital Signs Vital signs: Vital Signs Temp 98.9 F 05/09/20 11:50 Pulse 64 05/09/20 11:50 Resp 16 05/09/20 11:50 BP 115/69 05/09/20 11:50 Pulse Ox 99 01/19/21 11:50 Intake & Output 05/08/20 05/09/20 05/09/20 18:59 06:59 18:59 Intake Total 400 0 Output Total 500 200 Balance -100 -200 Intake: Oral 400 Blood Product 0 Rc Irr As1 Unit 0 [id number] Output: Urine 500 200 Other: Voiding Method Toilet Urinal # Voids 0 2 2 # Bowel Movements 1 1 - Exam GENERAL: The patient is alert and oriented x3, not in any acute distress. Well developed, well nourished. HEENT: Pupils are round and equally reacting to light. EOMI. No scleral icterus. Does have conjunctival pallor. Normocephalic, atraumatic. No pharyngeal erythema. No thyromegaly. CARDIOVASCULAR: S1 and S2 present. No murmurs, rubs, or gallops. PULMONARY: Chest is clear to auscultation, no wheezing or crackles. ABDOMEN: Soft, nontender, nondistended, normoactive bowel sounds. No palpable organomegaly. MUSCULOSKELETAL: No joint swelling or deformity. EXTREMITIES: No cyanosis, clubbing, or pedal edema. NEUROLOGICAL: Gross neurological examination did not reveal any focal deficits. SKIN: Diffuse petechial rash secondary to thrombocytopenia - Labs CBC & Chem 7: 05/09/20 06:01 05/09/20 06:01 Labs: Abnormal Lab Results - Last 24 Hours (Table) 05/05/20 05/09/20 05/09/20 Range/Units 04:06 06:01 06:01 WBC 0.6 L* (3.8-10.6) k/uL RBC 1.99 L (4.30-5.90) m/uL Hgb 6.5 L* (13.0-17.5) gm/dL Hct 18.3 L* (39.0-53.0) % Plt Count 6 L* (150-450) k/uL Potassium 3.3 L (3.5-5.1) mmol/L Chloride 111 H (98-107) mmol/L Glucose 101 H (74-99) mg/dL Calcium 7.5 L (8.4-10.2) mg/dL Crossmatch See Detail 05/09/20 Range/Units 09:58 WBC (3.8-10.6) k/uL RBC (4.30-5.90) m/uL Hgb (13.0-17.5) gm/dL Hct (39.0-53.0) % Plt Count (150-450) k/uL Potassium (3.5-5.1) mmol/L Chloride (98-107) mmol/L Glucose (74-99) mg/dL Calcium (8.4-10.2) mg/dL Crossmatch See Detail Microbiology - Last 24 Hours (Table) 05/05/20 03:42 Blood Culture - Preliminary Blood No Growth after 96 hours 05/05/20 03:33 Blood Culture - Preliminary Blood No Growth after 96 hours 05/05/20 20:11 Stool Culture - Preliminary Stool Assessment and Plan Assessment: -Severe Sepsis, febrile neutropenia: Secondary to most probably diverticulitis: Patient maintained on cefepime, metronidazole and infectious disease is following. Patient has been afebrile for 24 hours. -Acute myeloblastic leukemia: Oncology following patient underwent chemotherapy recently -Pancytopenia with very low hemoglobin patient received h irradiated RBCX2 and platelet transfusionX2. Hemoglobin was found to be 6.5 today and currently awaiting a unit of PRBCs. Platelets low as well at 6 and awaiting a unit of late limits -Hypovolemic hyponatremia: Improved now -Mild hypokalemia, current potassium is 3.3 and will be replaced -Hypertension -Hyperlipidemia -Depression -Because of his severe thrombocytopenia patient cannot receive any pharmacologic DVT prophylaxis -GI prophylaxis: Pepcid Plan: Continue with current medications. Patient continues to have mild abdominal discomfort along with loose stools and diarrhea and will continue with clear liquid diet. No advancing diet at this time. Patient also was maintained on IV antibiotics in the form of cefepime along with Flagyl and will continue. Infectious disease is following. Will continue to monitor vital signs and labs closely. Will replace potassium and repeat a.m. labs. Further recommendations to follow.
[2020-05-10] MEDS: DEXTROSE 5%-0.9% NACL 1,000 ML IV SCH ×3 (03:53→22:03)
[2020-05-10] MEDS: metroNIDAZOLE-NS PMX 500 MG in SALINE 1 100ML.BAG IVPB SCH ×3 (04:01→20:02)
[2020-05-10] MEDS: SALT AND SODA MOUTHWASH 1,000 ML PO SCH ×5 (05:31→23:31)
[2020-05-10] MEDS: CEFEPIME 2 GM in SODIUM CHLORIDE 0.9% 100 ML IVPB SCH ×3 (05:31→23:29)
[2020-05-10 07:12] LABS: HCT 20.8 % (39.0-53.0); HGB 7.5 gm/dL (13.0-17.5); MCH 32.2 pg (25.0-35.0); MCV 89.6 fL (80.0-100.0); Mean Platelet Volume 8.8; RBC 2.32 m/uL (4.30-5.90); RDW 13.9 % (11.5-15.5)
[2020-05-10 07:47] LABS: WBC 0.7 k/uL (3.8-10.6)
[2020-05-10 07:48] LABS: Platelet Count 12 k/uL (150-450)
[2020-05-10] MEDS: ACYCLOVIR 200 MG CAP PO SCH ×2 (08:22→20:03)
[2020-05-10] MEDS: FLUoxetine HCL 20 MG CAP PO SCH (08:22)
[2020-05-10] MEDS: clonazePAM 1 MG TAB PO SCH ×2 (08:22→20:03)
[2020-05-10] MEDS: FAMOTIDINE 20 MG TAB PO SCH ×2 (08:22→20:03)
[2020-05-10] MEDS: FLUCONAZOLE 100 MG TAB PO SCH (08:23)
[2020-05-10] MEDS: hydrOXYzine pamoate 25 MG CAP PO SCH ×3 (08:24→22:00)
[2020-05-10] MEDS: MAG HYDROX/AL HYDROX/SIMETH 30 ML, LIDOCAINE VISCOUS 30 ML, diphenhydrAMINE ELIXIR 75 M... PO SCH ×12 (08:29→22:02)
--- NOTE | 2020-05-10 11:20 | P.PN ---
Subjective Progress Note Date: 05/10/20 Principal diagnosis: Febrile neutropenia, recent consolidation treatment for AML In follow-up today patient denies fever, he had an appetite and tolerated clear liquids, oral irritation is improving, no cough, nausea, abd bloating, lower quadrant discomfort is much less, his BM this AM is beginning to solidify, he had no pain with the BM. The petechiae on his legs is almost gone. Objective - Vital Signs Vital signs: Vital Signs Temp 98.8 F 05/10/20 07:20 Pulse 63 05/10/20 07:20 Resp 16 05/10/20 07:20 BP 117/73 05/10/20 07:20 Pulse Ox 99 05/10/20 07:20 Intake & Output 05/09/20 05/10/20 05/10/20 18:59 06:59 18:59 Intake Total 589 800 Output Total 700 875 Balance -111 -75 Intake: Intake, IV Titration 800 Amount Dextrose 5%-0.9% NaCl 1, 800 000 ml @ 100 mls/hr IV . Q10H [facility] Rx#:[id number] Blood Product 589 Platelet Irr Pheresis Pas 279 -C Unit [id number] Rc Irr As1 Unit 310 [id number] Output: Urine 700 875 Other: Voiding Method Toilet Urinal Toilet Urinal Urinal # Voids 1 2 # Bowel Movements 1 - Constitutional General appearance: Present: average body habitus, cooperative, no acute distress - EENT EENT Comment(s): rt lower gumline ulcer is almost healed Eyes: Present: abnormal pupil, EOMI ENT: Present: hearing grossly normal - Respiratory Respiratory: bilateral: CTA - Cardiovascular Rhythm: regular Heart sounds: normal: S1, S2 Abnormal Heart Sounds: Absent: systolic murmur, diastolic murmur, rub, S3 Gallop, S4 Gallop, click, other - Peripheral edema leg Peripheral Edema: bilateral: None - Gastrointestinal General gastrointestinal: Present: normal bowel sounds, soft, tenderness (very mild in LLQ). Absent: absent bowel sounds, decreased bowel sounds, distended, hepatomegaly, hyperactive bowel sounds, organomegaly, rigid, scaphoid, splenomegaly, umbilical hernia, ventral hernia - Integumentary Integumentary Comment(s): BLE petechiae is nearly resolved Integumentary: Present: pale - Neurologic Neurologic: Present: CNII-XII intact - Musculoskeletal Musculoskeletal: Present: strength equal bilaterally - Psychiatric Psychiatric: Present: A&O x's 3, appropriate affect, intact judgment & insight - Labs CBC & Chem 7: 05/10/20 06:48 05/09/20 06:01 Labs: Abnormal Lab Results - Last 24 Hours (Table) 05/09/20 05/10/20 Range/Units 09:58 06:48 WBC 0.7 L* (3.8-10.6) k/uL RBC 2.32 L (4.30-5.90) m/uL Hgb 7.5 L (13.0-17.5) gm/dL Hct 20.8 L (39.0-53.0) % Plt Count 12 L* D (150-450) k/uL Crossmatch See Detail Microbiology - Last 24 Hours (Table) 05/05/20 20:11 Stool Culture - Final Stool 05/05/20 03:42 Blood Culture - Preliminary Blood No Growth after 120 hours 05/05/20 03:33 Blood Culture - Preliminary Blood No Growth after 120 hours Assessment and Plan (1) Febrile neutropenia Narrative/Plan: BC neg 96 hours. Stool cult pending completion. Empiric antibiotics continue. Infectious Disease following No G-CSF as patient is not considered a complete remission from his AML. No fever for 48 hours as of this AM. WBC is slow to increase, 0.7 today. Would like to see a differential prior to DC, ANC >500 preferred Current Visit: Yes Status: Acute Priority: High Code(s): D70.9 - NEUTROPENIA, UNSPECIFIED; R50.81 - FEVER PRESENTING WITH CONDITIONS CLASSIFIED ELSEWHERE SNOMED Code(s): 041604524 (2) Mucositis (ulcerative) due to antineoplastic therapy Narrative/Plan: Grade 0-1. Cont Salt and soda and kools solution. Current Visit: Yes Status: Acute Priority: High Code(s): K12.31 - ORAL MUCOSITIS (ULCERATIVE) DUE TO ANTINEOPLASTIC THERAPY SNOMED Code(s): 625386622 (3) Pancytopenia due to antineoplastic chemotherapy Narrative/Plan: No transfusion today for hemoglobin of 7.5-appropriate increase in Hgb s/p 1 unit Platelet count 12,000 today, no transfusion. No anticoagulation, aspirin, NSAID s or pharmacologic DVT prophylaxis. WBC 0.7. No GCSF as patient is not a confirmed remission, 2-3% residual blasts on his bone marrow biopsy status post induction. Irradiated blood products only Current Visit: Yes Status: Acute Priority: High Code(s): D61.810 - ANTINEOPLASTIC CHEMOTHERAPY INDUCED PANCYTOPENIA; T45.1X5A - ADVERSE EFFECT OF ANTINEOPLASTIC AND IMMUNOSUP DRUGS, INIT SNOMED Code(s): 490791432433888 (4) Acute myeloid leukemia Narrative/Plan: Status post induction and one consolidation treatment with Vyxeos. He will be following up with BMT. Current Visit: No Status: Acute Priority: High Code(s): C92.00 - ACUTE MYELOBLASTIC LEUKEMIA, NOT HAVING ACHIEVED REMISSION SNOMED Code(s): 58976048 (5) Neutropenic typhlitis Narrative/Plan: Cont pt on clear liquids at this time. Do not advance diet. His abd discomfort is better, stool is beginning to form, WBC is slowly increasing. Current Visit: Yes Status: Acute Priority: High Code(s): K36 - OTHER APPENDICITIS SNOMED Code(s): 3192911
[2020-05-10] MEDS: POTASSIUM CHLORIDE ER 20 MEQ TAB.ER PO SCH ×2 (13:18→13:19)
--- NOTE | 2020-05-10 14:20 | P.PN ---
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 Patient is nothing by mouth as per Oncology., Patient was started on D5 which will be switched to D5 normal saline. Patient probably can be started on clear liquid diet patient is pres ently on cefepime and metronidazole. Still has some abdominal pain although significantly improved compared to yesterday was complaining of diarrhea. Patient received 1 unit of irradiated PRBC along with platelet transfusion present hemoglobin is 6.9 platelets 14,000. 05/07/2020 Patient received one more unit of irradiated PRBC along with platelets as today. Patient is still having fevers part of which is probably from leukemia infectious disease will be consulted to get all the cultures are negative patient remains nothing by mouth we'll check a check with the oncology patient can be started on clear liquid diet. Patient is still having abdominal pain and does have abdominal tenderness as well. Patient remains on cefepime and metronidazole. 05/08/2020 Patient's abdominal pain significantly improved can use to have fevers. Patient diet will be advanced to full liquid diet. His pain improved 05/09/2020 Patient is seen and evaluated in follow-up with no acute overnight issues. Patient continues to have loose stool along with mild abdominal pain and patient's diet will continue with clear liquids. Patient is maintained on IV antibiotics in the form of cefepime and Flagyl and will continue at this time. Infectious disease is following. Patient's hemoglobin was found to be 6.5 and currently awaiting a unit of PRBCs. Potassium was also slightly low at 3.3 and will replace and repeat labs. Sodium is 139 and creatinine is 0.76. White blood count is 0.6 and platelets continue to be low at 6. Oncology is following closely. 05/10/2020 Patient is seen and evaluated and follow-up stating his abdominal pain has subsided and patient is maintained on clear liquids and will continue at this time. Patient did receive a unit of platelets along with a unit of PRBCs and hemoglobin is 7.5 with platelets of 12 today. Oncology is following closely. Patient is maintained on antibiotics for diverticulitis and will continue at this time. Potassium was replaced and currently awaiting repeat labs. Will continue to monitor closely. Patient states he is having bowel movements that are more formed today. Constitutional: Denied any fatigue denied any fever. Cardio vascular: denied any chest pain, palpitations Gastrointestinal: denied any nausea vomiting Pulmonary: No reports of shortness of breath or cough Neurologic denied any new focal deficits All inpatient medications were reviewed and appropriate changes in these medications as dictated in the interval history and assessment and plan. Objective - Vital Signs Vital signs: Vital Signs Temp 98.8 F 05/10/20 07:20 Pulse 63 05/10/20 07:20 Resp 16 05/10/20 07:20 BP 117/73 05/10/20 07:20 Pulse Ox 99 05/10/20 07:20 Intake & Output 05/09/20 05/10/20 05/10/20 18:59 06:59 18:59 Intake Total 589 800 Output Total 700 875 Balance -111 -75 Intake: Intake, IV Titration 800 Amount Dextrose 5%-0.9% NaCl 1, 800 000 ml @ 100 mls/hr IV . Q10H [facility] Rx#:[id number] Blood Product 589 Platelet Irr Pheresis Pas 279 -C Unit [id number] Rc Irr As1 Unit 310 [id number] Output: Urine 700 875 Other: Voiding Method Toilet Urinal Toilet Urinal Urinal # Voids 1 2 # Bowel Movements 1 - Exam GENERAL: The patient is alert and oriented x3, not in any acute distress. Well developed, well nourished. HEENT: Pupils are round and equally reacting to light. EOMI. No scleral icterus. Does have conjunctival pallor. Normocephalic, atraumatic. No pharyngeal erythema. No thyromegaly. CARDIOVASCULAR: S1 and S2 present. No murmurs, rubs, or gallops. PULMONARY: Chest is clear to auscultation, no wheezing or crackles. ABDOMEN: Soft, nontender, nondistended, normoactive bowel sounds. No palpable organomegaly. Petechia noted on the abdomen along with bilateral lower extrem ities somewhat improved from yesterday MUSCULOSKELETAL: No joint swelling or deformity. EXTREMITIES: No cyanosis, clubbing, or pedal edema. NEUROLOGICAL: Gross neurological examination did not reveal any focal deficits. SKIN: Diffuse petechial rash secondary to thrombocytopenia - Labs CBC & Chem 7: 05/10/20 06:48 05/09/20 06:01 Labs: Abnormal Lab Results - Last 24 Hours (Table) 05/09/20 05/10/20 Range/Units 09:58 06:48 WBC 0.7 L* (3.8-10.6) k/uL RBC 2.32 L (4.30-5.90) m/uL Hgb 7.5 L (13.0-17.5) gm/dL Hct 20.8 L (39.0-53.0) % Plt Count 12 L* D (150-450) k/uL Crossmatch See Detail Microbiology - Last 24 Hours (Table) 05/05/20 20:11 Stool Culture - Final Stool 05/05/20 03:42 Blood Culture - Preliminary Blood No Growth after 120 hours 05/05/20 03:33 Blood Culture - Preliminary Blood No Growth after 120 hours Assessment and Plan Assessment: -Severe Sepsis, febrile neutropenia: Secondary to most probably diverticulitis: Patient maintained on cefepime, metronidazole and infectious disease is following. Patient has been afebrile for 24 hours. -Acute myeloblastic leukemia: Oncology following patient underwent chemotherapy recently -Pancytopenia with very low hemoglobin patient received h irradiated RBCX2 and platelet transfusionX2. Hemoglobin was found to be 7.5 today status post 1 unit of PRBC and 1 unit of platelets and currently platelet count of 12. -Hypovolemic hyponatremia: Improved now -Mild hypokalemia, current potassium is 3.3 and was replaced, a.m. labs pending -Hypertension -Hyperlipidemia -Depression -Because of his severe thrombocytopenia patient cannot receive any pharmacologic DVT prophylaxis -GI prophylaxis: Pepcid Plan: Continue with current medications. Patient continues to the on clear liquids and tolerating well with no advancing diet at this time. This was discussed with oncology as well. Patient also was maintained on IV antibiotics in the form of cefepime along with Flagyl and will continue. Infectious disease is following. Will continue to monitor vital signs and labs closely. Patient has been afebrile. Bowel movements have lessened in frequency and become more formed. Will replace potassium and repeat labs pending. Further recommendations to follow. Possible discharge in 24-48 hours.
[2020-05-10 14:25] LABS: African American GFR (CKD) 113.2 (60.0-200.0); Anion Gap 6.8 mmol/L (4.00-12.00); BUN/Creat Ratio 17.14 Ratio (12.00-20.00); Calcium 7.7 mg/dL (8.7-10.3); Carbon Dioxide 23.2 mmol/L (21.6-31.8); Non-African American GFR(CKD) 97.7 (60.0-200.0); Potassium 3.4 mmol/L (3.5-5.5)
--- NOTE | 2020-05-10 23:05 | PN ---
PROGRESS NOTE DATE OF SERVICE: 05/10/2020 REASON FOR FOLLOWUP: Febrile neutropenia and diverticulitis. INTERVAL HISTORY: The patient's overall fever pattern has improved. The patient has been feeling better, breathing comfortably. Denies having any chest pain or shortness of breath or cough. Abdominal pain is currently controlled as well as diarrhea. No vomiting. PHYSICAL EXAMINATION: Blood pressure 116/68 with a pulse of 58, temperature 98.2. He is 99% on room air. General description is an elderly male lying in bed in no distress. RESPIRATORY SYSTEM: Unlabored breathing. Clear to auscultation anteriorly. HEART: S1, S2. Regular rate and rhythm. ABDOMEN: Soft. No tenderness. LABS: Hemoglobin 7.5, white count 0.7, BUN of 12, creatinine 0.7. DIAGNOSTIC IMPRESSION AND PLAN: Patient with febrile neutropenia. Source is likely diverticulitis in this patient who clinically responded to cefepime and Flagyl; to continue while monitoring his clinical course closely. Continue with supportive care. MMODL / IJN: [id number] /
[2020-05-11] MEDS: metroNIDAZOLE-NS PMX 500 MG in SALINE 1 100ML.BAG IVPB SCH ×3 (03:57→18:08)
[2020-05-11] MEDS: CEFEPIME 2 GM in SODIUM CHLORIDE 0.9% 100 ML IVPB SCH ×3 (05:16→21:17)
[2020-05-11] MEDS: SALT AND SODA MOUTHWASH 1,000 ML PO SCH ×4 (05:17→19:39)
[2020-05-11 06:53] LABS: HCT 20.7 % (39.0-53.0); HGB 7.4 gm/dL (13.0-17.5); MCHC 35.7 g/dL (31.0-37.0); MCV 89.7 fL (80.0-100.0); Mean Platelet Volume 7.8; RDW 13.9 % (11.5-15.5)
[2020-05-11 06:56] LABS: Platelet Count 6 k/uL (150-450); WBC 0.6 k/uL (3.8-10.6)
[2020-05-11] MEDS: hydrOXYzine pamoate 25 MG CAP PO SCH ×3 (08:54→23:00)
[2020-05-11] MEDS: FLUoxetine HCL 20 MG CAP PO SCH (08:55)
[2020-05-11] MEDS: ACYCLOVIR 200 MG CAP PO SCH ×2 (08:55→21:17)
[2020-05-11] MEDS: FLUCONAZOLE 100 MG TAB PO SCH (08:55)
[2020-05-11] MEDS: FAMOTIDINE 20 MG TAB PO SCH ×2 (08:55→21:17)
[2020-05-11] MEDS: clonazePAM 1 MG TAB PO SCH ×2 (08:55→21:17)
[2020-05-11] MEDS: MAG HYDROX/AL HYDROX/SIMETH 30 ML, LIDOCAINE VISCOUS 30 ML, diphenhydrAMINE ELIXIR 75 M... PO SCH ×12 (08:59→23:03)
[2020-05-11] MEDS: DEXTROSE 5%-0.9% NACL 1,000 ML IV SCH ×3 (10:29→23:03)
[2020-05-11 10:39] LABS: Anisocytosis (M) Present; Poikilocytosis (M) Present; Tear Drop Cells Present
--- NOTE | 2020-05-11 11:15 | P.PN ---
Subjective Progress Note Date: 05/11/20 HISTORY OF PRESENT ILLNESS This is a 69-year-old male being followed for febrile neutropenia and diverticu litis. Patient states that his diarrhea has resolved. He denies nausea vomiting. He denies any fever or chills. No shortness of breath or cough. In general he is feeling much better. Patient has been treated with cefepime and Flagyl. Patient has been afebrile, heart rate 66, blood pressure 115/66, pulse ox 97% on room air. WBC 0.6, hemoglobin 7.4, platelet count 6. PHYSICAL EXAMINATION Gen: This is a 69-year-old male. He is resting bed and appears to be in no acute distress. HEENT: Head is atraumatic, normocephalic. Pupils equal, round. Sclerae is anicteric. NECK: Supple. No JVD. No lymphadenopathy. LUNGS: Clear to auscultation. No wheezes or rhonchi. No intercostal retractions. HEART: Regular rate and rhythm. No murmur. ABDOMEN: Soft. Bowel sounds are present. No masses. No tenderness. EXTREMITIES: No pedal edema. No calf tenderness. NEUROLOGICAL: Patient is awake, alert and oriented x3. ASSESSMENT Febrile neutropenia Diverticulitis PLAN Continue cefepime and Flagyl Continue supportive care Further recommendations as patient progresses. The above dictated assessment and findings were discussed with Dr. Mathur. The impression and plan of care have been directed as dictated. Ines Putnam nurse practitioner acting as scribe for Dr. Mathur. Objective - Vital Signs Vital signs: Vital Signs Temp 98.1 F 05/11/20 04:40 Pulse 66 05/11/20 04:40 Resp 12 05/11/20 04:40 BP 115/66 05/11/20 04:40 Pulse Ox 97 05/11/20 04:40 Intake & Output 05/10/20 05/11/20 05/11/20 18:59 06:59 18:59 Intake Total 1000 360 Output Total 400 Balance 1000 -400 360 Intake: Oral 1000 360 Output: Urine 400 Other: Voiding Method Toilet Toilet Urinal Urinal # Voids 3 2 # Bowel Movements 0 - Labs CBC & Chem 7: 05/11/20 06:18 05/11/20 06:18 Labs: Abnormal Lab Results - Last 24 Hours (Table) 05/10/20 05/11/20 Range/Units 06:48 06:18 WBC 0.6 L* (3.8-10.6) k/uL RBC 2.30 L (4.30-5.90) m/uL Hgb 7.4 L (13.0-17.5) gm/dL Hct 20.7 L (39.0-53.0) % Plt Count 6 L* (150-450) k/uL Potassium 3.4 L (3.5-5.5) mmol/L Chloride 111 H (96-109) mmol/L Calcium 7.7 L (8.7-10.3) mg/dL Microbiology - Last 24 Hours (Table) 05/05/20 03:42 Blood Culture - Final Blood No Growth after 144 hours 05/05/20 03:33 Blood Culture - Final Blood No Growth after 144 hours 05/05/20 20:11 Stool Culture - Final Stool
--- NOTE | 2020-05-11 14:05 | P.PN ---
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 Patient is nothing by mouth as per Oncology., Patient was started on D5 which will be switched to D5 normal saline. Patient probably can be started on clear liquid diet patient is pres ently on cefepime and metronidazole. Still has some abdominal pain although significantly improved compared to yesterday was complaining of diarrhea. Patient received 1 unit of irradiated PRBC along with platelet transfusion present hemoglobin is 6.9 platelets 14,000. 05/07/2020 Patient received one more unit of irradiated PRBC along with platelets as today. Patient is still having fevers part of which is probably from leukemia infectious disease will be consulted to get all the cultures are negative patient remains nothing by mouth we'll check a check with the oncology patient can be started on clear liquid diet. Patient is still having abdominal pain and does have abdominal tenderness as well. Patient remains on cefepime and metronidazole. 05/08/2020 Patient's abdominal pain significantly improved can use to have fevers. Patient diet will be advanced to full liquid diet. His pain improved 05/09/2020 Patient is seen and evaluated in follow-up with no acute overnight issues. Patient continues to have loose stool along with mild abdominal pain and patient's diet will continue with clear liquids. Patient is maintained on IV antibiotics in the form of cefepime and Flagyl and will continue at this time. Infectious disease is following. Patient's hemoglobin was found to be 6.5 and currently awaiting a unit of PRBCs. Potassium was also slightly low at 3.3 and will replace and repeat labs. Sodium is 139 and creatinine is 0.76. White blood count is 0.6 and platelets continue to be low at 6. Oncology is following closely. 05/10/2020 Patient is seen and evaluated and follow-up stating his abdominal pain has subsided and patient is maintained on clear liquids and will continue at this time. Patient did receive a unit of platelets along with a unit of PRBCs and hemoglobin is 7.5 with platelets of 12 today. Oncology is following closely. Patient is maintained on antibiotics for diverticulitis and will continue at this time. Potassium was replaced and currently awaiting repeat labs. Will continue to monitor closely. Patient states he is having bowel movements that are more formed today. 05/11/2020 Patient is seen in follow-up this morning and hemoglobin is currently Sage 0.4, white blood count 0.6, and platelets low at 6 and awaiting to receive platelet transfusion. IV antibiotics in the form of cefepime and Flagyl and infectious disease is following and will continue at this time. Patient's abdominal pain has subsided and having less frequent bowel movements. Patient's potassium was replaced yesterday and is currently 3.6. Will repeat a.m. labs and continue to monitor closely. Cardiology is following as well. Constitutional: Denied any fatigue denied any fever. Cardio vascular: denied any chest pain, palpitations Gastrointestinal: denied any nausea vomiting Pulmonary: No reports of shortness of breath or cough Neurologic denied any new focal deficits All inpatient medications were reviewed and appropriate changes in these med ications as dictated in the interval history and assessment and plan. Objective - Vital Signs Vital signs: Vital Signs Temp 98.1 F 05/11/20 04:40 Pulse 66 05/11/20 04:40 Resp 12 05/11/20 04:40 BP 115/66 05/11/20 04:40 Pulse Ox 97 05/11/20 04:40 Intake & Output 05/10/20 05/11/20 05/11/20 18:59 06:59 18:59 Intake Total 1000 Output Total 400 Balance 1000 -400 Intake: Oral 1000 Output: Urine 400 Other: Voiding Method Toilet Toilet Urinal Urinal # Voids 3 2 # Bowel Movements 0 - Exam GENERAL: The patient is alert and oriented x3, not in any acute distress. Well developed, well nourished. HEENT: Pupils are round and equally reacting to light. EOMI. No scleral icterus. Does have conjunctival pallor. Normocephalic, atraumatic. No pharyngeal erythema. No thyromegaly. CARDIOVASCULAR: S1 and S2 present. No murmurs, rubs, or gallops. PULMONARY: Chest is clear to auscultation, no wheezing or crackles. ABDOMEN: Soft, nontender, nondistended, normoactive bowel sounds. No palpable organomegaly. Petechia noted on the abdomen along with bilateral lower extremities somewhat improved from yesterday MUSCULOSKELETAL: No joint swelling or deformity. EXTREMITIES: No cyanosis, clubbing, or pedal edema. NEUROLOGICAL: Gross neurological examination did not reveal any focal deficits. SKIN: Diffuse petechial rash secondary to thrombocytopenia - Labs CBC & Chem 7: 05/11/20 06:18 05/11/20 06:18 Labs: Abnormal Lab Results - Last 24 Hours (Table) 05/10/20 05/11/20 Range/Units 06:48 06:18 WBC 0.6 L* (3.8-10.6) k/uL RBC 2.30 L (4.30-5.90) m/uL Hgb 7.4 L (13.0-17.5) gm/dL Hct 20.7 L (39.0-53.0) % Plt Count 6 L* (150-450) k/uL Potassium 3.4 L (3.5-5.5) mmol/L Chloride 111 H (96-109) mmol/L Calcium 7.7 L (8.7-10.3) mg/dL Microbiology - Last 24 Hours (Table) 05/05/20 03:42 Blood Culture - Final Blood No Growth after 144 hours 05/05/20 03:33 Blood Culture - Final Blood No Growth after 144 hours 05/05/20 20:11 Stool Culture - Final Stool Assessment and Plan Assessment: -Severe Sepsis, febrile neutropenia: Secondary to most probably diverticulitis: Patient maintained on cefepime, metronidazole and infectious disease is following. Patient remains afebrile -Acute myeloblastic leukemia: Oncology following patient underwent chemotherapy recently -Pancytopenia with very low hemoglobin patient received irradiated RBCX2 and platelet transfusionX4. Hemoglobin was found to be 7.4 today and platelets were low today at 6 and awaiting to receive a transfusion of irradiated platelets -Hypovolemic hyponatremia: Improved now -Mild hypokalemia, improved, potassium 3.6 -Hypertension -Hyperlipidemia -Depression -Because of his severe thrombocytopenia patient cannot receive any pharmacologic DVT prophylaxis -GI prophylaxis: Pepcid Plan: Continue with current medications. Patient continues with clear liquids and tolerating well with no advancing diet at this time. This was discussed with oncology as well. Patient also was maintained on IV antibiotics in the form of cefepime along with Flagyl and will continue. Infectious disease is following. Will continue to monitor vital signs and labs closely. Patient has been afebrile. will repeat a.m. labs. Repeat potassium is 3.6. patient currently awaiting to receive irradiated platelets for platelet count of 6 this morning. Further recommendations to follow. Possible discharge in 24-48 hours.
--- NOTE | 2020-05-11 16:35 | P.PN ---
Subjective Progress Note Date: 05/11/20 Principal diagnosis: Febrile neutropenia, recent consolidation treatment for AML In follow-up today patient cont to do ok, no new symptoms, no fever, tolerating clear liquids, oral irritation is resolved, BM this AM is stable, no formed, no water, no abd cramping or bloating. The petechiae on his legs is stable. Objective - Vital Signs Vital signs: Vital Signs Temp 97.9 F 05/11/20 13:00 Pulse 63 05/11/20 13:00 Resp 16 05/11/20 13:00 BP 116/73 05/11/20 13:00 Pulse Ox 99 05/11/20 13:00 Intake & Output 05/10/20 05/11/20 05/11/20 18:59 06:59 18:59 Intake Total 1000 720 Output Total 400 Balance 1000 -400 720 Weight 80.1 kg Intake: Oral 1000 720 Output: Urine 400 Other: Voiding Method Toilet Toilet Toilet Urinal Urinal Urinal # Voids 3 2 # Bowel Movements 0 - Constitutional General appearance: Present: average body habitus, cooperative, no acute distress - EENT Eyes: Present: anicteric sclerae, EOMI ENT: Present: hearing grossly normal, normal oropharynx - Respiratory Respiratory: bilateral: CTA - Cardiovascular Heart sounds: normal: S1, S2 Abnormal Heart Sounds: Absent: systolic murmur, diastolic murmur, rub, S3 Gallop, S4 Gallop, click, other - Gastrointestinal General gastrointestinal: Present: normal bowel sounds, soft. Absent: absent bowel sounds, decreased bowel sounds, distended, hepatomegaly, hyperactive bowel sounds, organomegaly, rigid, scaphoid, splenomegaly, tenderness, umbilical hernia, ventral hernia - Neurologic Neurologic: Present: CNII-XII intact - Musculoskeletal Musculoskeletal: Present: strength equal bilaterally - Psychiatric Psychiatric: Present: A&O x's 3, appropriate affect, intact judgment & insight - Labs CBC & Chem 7: 05/11/20 06:18 05/11/20 06:18 Labs: Abnormal Lab Results - Last 24 Hours (Table) 05/11/20 Range/Units 06:18 WBC 0.6 L* (3.8-10.6) k/uL RBC 2.30 L (4.30-5.90) m/uL Hgb 7.4 L (13.0-17.5) gm/dL Hct 20.7 L (39.0-53.0) % Plt Count 6 L* (150-450) k/uL Microbiology - Last 24 Hours (Table) 05/05/20 03:42 Blood Culture - Final Blood No Growth after 144 hours 05/05/20 03:33 Blood Culture - Final Blood No Growth after 144 hours Assessment and Plan (1) Febrile neutropenia Narrative/Plan: BC neg 96 hours. Stool cult pending completion. Empiric antibiotics continue. Infectious Disease following No G-CSF as patient is not considered a complete remission from his AML. WBC is worse today, 0.6 today. Would like to see a differential prior to DC, ANC >500 preferred. Current Visit: Yes Status: Acute Priority: High Code(s): D70.9 - NEUTROPENIA, UNSPECIFIED; R50.81 - FEVER PRESENTING WITH CONDITIONS CLASSIFIED ELSEWHERE SNOMED Code(s): 621499212 (2) Mucositis (ulcerative) due to antineoplastic therapy Narrative/Plan: Grade 0. Cont Salt and soda and kools solution. Current Visit: Yes Status: Acute Priority: High Code(s): K12.31 - ORAL MUCOSITIS (ULCERATIVE) DUE TO ANTINEOPLASTIC THERAPY SNOMED Code(s): 684135652 (3) Pancytopenia due to antineoplastic chemotherapy Narrative/Plan: No transfusion today for hemoglobin of 7.4-appropriate increase in Hgb s/p 1 unit Platelet count 6,000 today, transfuse 1 unit SDP. No anticoagulation, aspirin, NSAIDs or pharmacologic DVT prophylaxis. WBC 0.6. No GCSF as patient is not a confirmed remission, 2-3% residual blasts on his bone marrow biopsy status post induction. Irradiated blood products only Current Visit: Yes Status: Acute Priority: High Code(s): D61.810 - ANTINEOPLASTIC CHEMOTHERAPY INDUCED PANCYTOPENIA; T45.1X5A - ADVERSE EFFECT OF ANTINEOPLASTIC AND IMMUNOSUP DRUGS, INIT SNOMED Code(s): 224733218183365 (4) Acute myeloid leukemia Narrative/Plan: Status post induction and one consolidation treatment with Vyxeos. He will be following up with BMT. Current Visit: No Status: Acute Priority: High Code(s): C92.00 - ACUTE MYELOBLASTIC LEUKEMIA, NOT HAVING ACHIEVED REMISSION SNOMED Code(s): 47035826 (5) Neutropenic typhlitis Narrative/Plan: Cont pt on clear liquids at this time. Do not advance diet. His abd discomfort is stable. Stool is beginning to form, WBC is stable, no increase today. Discussed case with Dietitian. Ensure clear, hoping to advance diet but want to do so only when WBC/ANC showing some steady upward trend. Current Visit: Yes Status: Acute Priority: High Code(s): K36 - OTHER APPENDICITIS SNOMED Code(s): 1073773 Plan: Doctor attests: I performed a history and physical examination of this patient, developed impression and plan of care. Discussed with dictator. I agree with dictators note, documented as a scribe.
[2020-05-12] MEDS: SALT AND SODA MOUTHWASH 1,000 ML PO SCH ×6 (00:22→23:18)
[2020-05-12] MEDS: metroNIDAZOLE-NS PMX 500 MG in SALINE 1 100ML.BAG IVPB SCH ×3 (02:20→19:51)
[2020-05-12] MEDS: CEFEPIME 2 GM in SODIUM CHLORIDE 0.9% 100 ML IVPB SCH ×3 (04:19→21:21)
[2020-05-12 08:56] LABS: HCT 22.5 % (39.0-53.0); HGB 7.8 gm/dL (13.0-17.5); MCH 31.9 pg (25.0-35.0); MCHC 34.8 g/dL (31.0-37.0); MCV 91.7 fL (80.0-100.0); RBC 2.46 m/uL (4.30-5.90); RDW 13.7 % (11.5-15.5)
[2020-05-12] MEDS: clonazePAM 1 MG TAB PO SCH ×2 (08:56→21:05)
[2020-05-12] MEDS: ACYCLOVIR 200 MG CAP PO SCH ×2 (08:56→21:06)
[2020-05-12] MEDS: FAMOTIDINE 20 MG TAB PO SCH ×2 (08:56→21:05)
[2020-05-12] MEDS: FLUoxetine HCL 20 MG CAP PO SCH (08:56)
[2020-05-12] MEDS: MAG HYDROX/AL HYDROX/SIMETH 30 ML, LIDOCAINE VISCOUS 30 ML, diphenhydrAMINE ELIXIR 75 M... PO SCH ×12 (08:57→21:21)
[2020-05-12] MEDS: hydrOXYzine pamoate 25 MG CAP PO SCH ×3 (08:57→21:06)
[2020-05-12 08:58] LABS: Platelet Count 3 k/uL (150-450); WBC 0.8 k/uL (3.8-10.6)
[2020-05-12] MEDS: FLUCONAZOLE 100 MG TAB PO SCH (09:08)
[2020-05-12 10:18] LABS: Poikilocytosis (M) Present
--- NOTE | 2020-05-12 12:32 | P.PN ---
Subjective Progress Note Date: 05/12/20 Principal diagnosis: Acute Leukemia Platelets are 3K today Objective - Vital Signs Vital signs: Vital Signs Temp 97.7 F 05/12/20 11:30 Pulse 72 05/12/20 11:30 Resp 17 05/12/20 11:30 BP 102/58 05/12/20 11:30 Pulse Ox 99 05/12/20 11:30 Intake & Output 05/11/20 05/12/20 05/12/20 18:59 06:59 18:59 Intake Total 2720 1636 Output Total 1100 500 Balance 1620 1136 Weight 80.1 kg 76.5 kg Intake: Intake, IV Titration 200 800 Amount Cefepime 2 gm In Sodium 100 200 Chloride 0.9% 100 ml @ 25 mls/hr IVPB Q8H [facility] Rx#: [id number] Dextrose 5%-0.9% NaCl 1, 500 000 ml @ 100 mls/hr IV . Q10H [facility] Rx#:[id number] metroNIDAZOLE-NS PMX 500 100 100 mg In Saline 1 100ml.bag @ 100 mls/hr IVPB Q8H [facility] Rx#:[id number] Oral 2520 600 Blood Product 236 Platelet Irr Pheresis 236 Acda1 Unit [id number] Output: Urine 1100 500 Other: Voiding Method Toilet Toilet Toilet Urinal Urinal Urinal - Exam - Constitutional General appearance: Present: average body habitus, cooperative, no acute distress - EENT Eyes: Present: anicteric sclerae, EOMI ENT: Present: hearing grossly normal, normal oropharynx - Respiratory Respiratory: bilateral: CTA - Cardiovascular Heart sounds: normal: S1, S2 Abnormal Heart Sounds: Absent: systolic murmur, diastolic murmur, rub, S3 Gallop, S4 Gallop, click, other - Gastrointestinal General gastrointestinal: Present: normal bowel sounds, soft. Absent: absent bowel sounds, decreased bowel sounds, distended, hepatomegaly, hyperactive bowel sounds, organomegaly, rigid, scaphoid, splenomegaly, tenderness, umbilical hernia, ventral hernia - Neurologic Neurologic: Present: CNII-XII intact - Musculoskeletal Musculoskeletal: Present: strength equal bilaterally - Psychiatric Psychiatric: Present: A&O x's 3, appropriate affect, intact judgment & insight - Labs CBC & Chem 7: 05/12/20 08:26 05/12/20 08:26 Labs: Abnormal Lab Results - Last 24 Hours (Table) 05/12/20 Range/Units 08:26 WBC 0.8 L* (3.8-10.6) k/uL RBC 2.46 L (4.30-5.90) m/uL Hgb 7.8 L (13.0-17.5) gm/dL Hct 22.5 L (39.0-53.0) % Plt Count 3 L* (150-450) k/uL Assessment and Plan Plan: Assessment and Plan Febrile neutropenia - Afebrile currently - Empiric antibiotics continue. Infectious Disease following - No G-CSF as patient is not considered a complete remission from his AML. - Would like to see a differential prior to DC, ANC >500 preferred. Current Visit: Yes Status: Acute Priority: High Code(s): D70.9 - NEUTROPENIA, UNSPECIFIED; R50.81 - FEVER PRESENTING WITH CONDITIONS CLASSIFIED ELSEWHERE SNOMED Code(s): 109190983 Pancytopenia due to antineoplastic chemotherapy - Hemoglobin 7.8 - Platelet Count 3K, Transfuse Irradiated today. Review of trend notes little to no response over the past few days. Will recheck Coags and CMP as well as order Crossmatched platelets for anticipation of refractory marrow. - No anticoagulation, aspirin, NSAIDs or pharmacologic DVT prophylaxis. - WBC 0.8. No GCSF as patient is not a confirmed remission, 2-3% residual blasts on his bone marrow biopsy status post induction. - Irradiated blood products only Acute myeloid leukemia - Status post induction and one consolidation treatment with Vyxeos. He will be following up with BMT. Neutropenic typhlitis - Monitor clinically daily and await ANC 500 or greater prior to advancement of diet. - Cont pt on clear liquids at this time. Do not advance diet. His abd discomfort is stable. Stool is beginning to form, WBC is stable, no increase today. Discussed case with Dietitian. Ensure clear, hoping to advance diet but want to do so only when WBC/ANC showing some steady upward trend. Discussed with blood bank regarding crossmatched platelets. It is not recommended to increase from clear liquids before ANC is 500, re- discussed with dieticien Doctor attests: I performed a history and physical examination of this patient, developed impression and plan of care. Discussed with dictator. I agree with dictators note, documented as a scribe.
--- NOTE | 2020-05-12 12:39 | P.PN ---
Subjective Progress Note Date: 05/12/20 HISTORY OF PRESENT ILLNESS This is a 69-year-old male being followed for febrile neutropenia and diverticu litis. Patient states that his diarrhea has resolved. He denies nausea vomiting. He denies any fever or chills. No shortness of breath or cough. In general he is feeling much better and is asking to go home. Patient has been treated with cefepime and Flagyl. Patient has been afebrile, heart rate 72, blood pressure 102/58, pulse ox 99% on room air. WBC 0.8, hemoglobin 7.8, platelet count 3. PHYSICAL EXAMINATION Gen: This is a 69-year-old male. He is resting bed and appears to be in no acute distress. HEENT: Head is atraumatic, normocephalic. Pupils equal, round. Sclerae is anicteric. NECK: Supple. No JVD. No lymphadenopathy. LUNGS: Clear to auscultation. No wheezes or rhonchi. No intercostal retractions. HEART: Regular rate and rhythm. No murmur. ABDOMEN: Soft. Bowel sounds are present. No masses. No tenderness. EXTREMITIES: No pedal edema. No calf tenderness. NEUROLOGICAL: Patient is awake, alert and oriented x3. ASSESSMENT Febrile neutropenia Diverticulitis Pancytopenia PLAN Continue cefepime and Flagyl Continue supportive care Further recommendations as patient progresses. The above dictated assessment and findings were discussed with Dr. Mathur. The impression and plan of care have been directed as dictated. Ines Putnam nurse practitioner acting as scribe for Dr. Mathur. Objective - Vital Signs Vital signs: Vital Signs Temp 97.7 F 05/12/20 11:30 Pulse 72 05/12/20 11:30 Resp 17 05/12/20 11:30 BP 102/58 05/12/20 11:30 Pulse Ox 99 05/12/20 11:30 Intake & Output 05/11/20 05/12/20 05/12/20 18:59 06:59 18:59 Intake Total 2720 1636 Output Total 1100 500 Balance 1620 1136 Weight 80.1 kg 76.5 kg Intake: Intake, IV Titration 200 800 Amount Cefepime 2 gm In Sodium 100 200 Chloride 0.9% 100 ml @ 25 mls/hr IVPB Q8H [facility] Rx#: [id number] Dextrose 5%-0.9% NaCl 1, 500 000 ml @ 100 mls/hr IV . Q10H [facility] Rx#:[id number] metroNIDAZOLE-NS PMX 500 100 100 mg In Saline 1 100ml.bag @ 100 mls/hr IVPB Q8H [facility] Rx#:[id number] Oral 2520 600 Blood Product 236 Platelet Irr Pheresis 236 Acda1 Unit [id number] Output: Urine 1100 500 Other: Voiding Method Toilet Toilet Toilet Urinal Urinal Urinal - Labs CBC & Chem 7: 05/12/20 08:26 05/11/20 06:18 Labs: Abnormal Lab Results - Last 24 Hours (Table) 05/12/20 Range/Units 08:26 WBC 0.8 L* (3.8-10.6) k/uL RBC 2.46 L (4.30-5.90) m/uL Hgb 7.8 L (13.0-17.5) gm/dL Hct 22.5 L (39.0-53.0) % Plt Count 3 L* (150-450) k/uL
[2020-05-12 13:48] LABS: INR 1.2 (<1.2); Partial Thromboplastin Time 25.1 sec (22.0-30.0)
--- NOTE | 2020-05-12 13:48 | P.PN ---
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 Patient is nothing by mouth as per Oncology., Patient was started on D5 which will be switched to D5 normal saline. Patient probably can be started on clear liquid diet patient is pres ently on cefepime and metronidazole. Still has some abdominal pain although significantly improved compared to yesterday was complaining of diarrhea. Patient received 1 unit of irradiated PRBC along with platelet transfusion present hemoglobin is 6.9 platelets 14,000. 05/07/2020 Patient received one more unit of irradiated PRBC along with platelets as today. Patient is still having fevers part of which is probably from leukemia infectious disease will be consulted to get all the cultures are negative patient remains nothing by mouth we'll check a check with the oncology patient can be started on clear liquid diet. Patient is still having abdominal pain and does have abdominal tenderness as well. Patient remains on cefepime and metronidazole. 05/08/2020 Patient's abdominal pain significantly improved can use to have fevers. Patient diet will be advanced to full liquid diet. His pain improved 05/09/2020 Patient is seen and evaluated in follow-up with no acute overnight issues. Patient continues to have loose stool along with mild abdominal pain and patient's diet will continue with clear liquids. Patient is maintained on IV antibiotics in the form of cefepime and Flagyl and will continue at this time. Infectious disease is following. Patient's hemoglobin was found to be 6.5 and currently awaiting a unit of PRBCs. Potassium was also slightly low at 3.3 and will replace and repeat labs. Sodium is 139 and creatinine is 0.76. White blood count is 0.6 and platelets continue to be low at 6. Oncology is following closely. 05/10/2020 Patient is seen and evaluated and follow-up stating his abdominal pain has subsided and patient is maintained on clear liquids and will continue at this time. Patient did receive a unit of platelets along with a unit of PRBCs and hemoglobin is 7.5 with platelets of 12 today. Oncology is following closely. Patient is maintained on antibiotics for diverticulitis and will continue at this time. Potassium was replaced and currently awaiting repeat labs. Will continue to monitor closely. Patient states he is having bowel movements that are more formed today. 05/11/2020 Patient is seen in follow-up this morning and hemoglobin is currently 7.4, white blood count 0.6, and platelets low at 6 and awaiting to receive platelet transfusion. IV antibiotics in the form of cefepime and Flagyl and infectious disease is following and will continue at this time. Patient's abdominal pain has subsided and having less frequent bowel movements. Patient's potassium was replaced yesterday and is currently 3.6. Will repeat a.m. labs and continue to monitor closely. Cardiology is following as well. 05/12/2020 Patient is seen and evaluated in follow-up with no acute overnight issues. Abdominal pain has resolved and patient is maintained on clear liquids. Patient also continues on empiric antibiotics in the form of cefepime and Flagyl. Infectious disease is following. Patient hemoglobin today is stable at 7.8 and white blood count slightly up at 0.8. Platelets are low at 3 and currently awaiting to receive irradiated platelets. Oncology is following. Patient has been afebrile vital signs within normal limits. Patient is requesting to go home. Review of systems: Constitutional: Denied any fatigue denied any fever. Cardio vascular: denied any chest pain, palpitations Gastrointestinal: denied any nausea vomiting Pulmonary: No reports of shortness of breath or cough Neurologic denied any new focal deficits All inpatient medications were reviewed and appropriate changes in these medications as dictated in the interval history and assessment and plan. Objective - Vital Signs Vital signs: Vital Signs Temp 97.7 F 05/12/20 11:30 Pulse 72 05/12/20 11:30 Resp 17 05/12/20 11:30 BP 102/58 05/12/20 11:30 Pulse Ox 99 05/12/20 11:30 Intake & Output 05/11/20 05/12/20 05/12/20 18:59 06:59 18:59 Intake Total 2720 1636 Output Total 1100 500 Balance 1620 1136 Weight 80.1 kg 76.5 kg Intake: Intake, IV Titration 200 800 Amount Cefepime 2 gm In Sodium 100 200 Chloride 0.9% 100 ml @ 25 mls/hr IVPB Q8H [facility] Rx#: [id number] Dextrose 5%-0.9% NaCl 1, 500 000 ml @ 100 mls/hr IV . Q10H [facility] Rx#:[id number] metroNIDAZOLE-NS PMX 500 100 100 mg In Saline 1 100ml.bag @ 100 mls/hr IVPB Q8H [facility] Rx#:[id number] Oral 2520 600 Blood Product 236 Platelet Irr Pheresis 236 Acda1 Unit [id number] Output: Urine 1100 500 Other: Voiding Method Toilet Toilet Toilet Urinal Urinal Urinal - Exam GENERAL: The patient is alert and oriented x3, not in any acute distress. Patient is sleeping although easily arousable. Well developed, well nourished. HEENT: Pupils are round and equally reacting to light. EOMI. No scleral icterus. Does have conjunctival pallor. Normocephalic, atraumatic. No pharyngeal erythema. No thyromegaly. CARDIOVASCULAR: S1 and S2 present. No murmurs, rubs, or gallops. PULMONARY: Chest is clear to auscultation, no wheezing or crackles. ABDOMEN: Soft, nontender, nondistended, normoactive bowel sounds. No palpable organomegaly. Petechia noted on the abdomen along with bilateral lower extremities that continues to improve MUSCULOSKELETAL: No joint swelling or deformity. EXTREMITIES: No cyanosis, clubbing, or pedal edema. NEUROLOGICAL: Gross neurological examination did not reveal any focal deficits. SKIN: Diffuse petechial rash secondary to thrombocytopenia - Labs CBC & Chem 7: 05/12/20 08:26 05/11/20 06:18 Labs: Abnormal Lab Results - Last 24 Hours (Table) 05/12/20 Range/Units 08:26 WBC 0.8 L* (3.8-10.6) k/uL RBC 2.46 L (4.30-5.90) m/uL Hgb 7.8 L (13.0-17.5) gm/dL Hct 22.5 L (39.0-53.0) % Plt Count 3 L* (150-450) k/uL Assessment and Plan Assessment: -Severe Sepsis, febrile neutropenia: Secondary to most probably diverticulitis: Patient maintained on cefepime, metronidazole and infectious disease is following. Patient remains afebrile -Acute myeloblastic leukemia: Oncology following patient underwent chemotherapy recently -Pancytopenia with very low hemoglobin patient received irradiated RBCX2 and platelet transfusionX4. Hemoglobin was found to be 7.8 today and platelets were low again today at 3 and awaiting to receive a transfusion of irradiated platelets -Hypovolemic hyponatremia: Improved now -Mild hypokalemia, improved -Hypertension -Hyperlipidemia -Depression -Because of his severe thrombocytopenia patient cannot receive any pharmacologic DVT prophylaxis -GI prophylaxis: Pepcid Plan: Continue with current medications. Patient continues with clear liquids and tolerating well with no advancing diet at this time. This was discussed with oncology as well. Patient also was maintained on IV antibiotics in the form of cefepime along with Flagyl and will continue. Infectious disease is following. Will continue to monitor vital signs and labs closely. Patient has been afebrile. will repeat a.m. labs. Patient currently awaiting to receive irradiated platelets for platelet count of 3 this morning. White blood count this morning was 0.8 and hemoglobin is stable at 7.8. Patient is requesting to go home although will need to discuss with oncology. Further recommendations to follow depending on the clinical course patient. Prognosis is guarded
[2020-05-12 14:32] VITALS: BMI 28.0
[2020-05-12 17:03] LABS: African American GFR (CKD) 113.2 (60.0-200.0); Anion Gap 6.6 mmol/L (4.00-12.00); BUN/Creat Ratio 15.71 Ratio (12.00-20.00); Calcium 7.7 mg/dL (8.7-10.3); Carbon Dioxide 23.4 mmol/L (21.6-31.8); Non-African American GFR(CKD) 97.7 (60.0-200.0); Potassium 3.6 mmol/L (3.5-5.5)
[2020-05-12] MEDS: DEXTROSE 5%-0.9% NACL 1,000 ML IV SCH ×2 (19:00→21:21)
[2020-05-12 23:01] LABS: African American GFR (CKD) 113.2 (60.0-200.0); Albumin 3.4 g/dL (3.80-4.90); Anion Gap 4.5 mmol/L (4.00-12.00); BUN/Creat Ratio 14.29 Ratio (12.00-20.00); Calcium 7.8 mg/dL (8.7-10.3); Carbon Dioxide 24.5 mmol/L (21.6-31.8); Globulin 1.7 g/dL (1.6-3.3); Magnesium 2.1 mg/dL (1.5-2.4); Non-African American GFR(CKD) 97.7 (60.0-200.0); Potassium 4.2 mmol/L (3.5-5.5); Total Bilirubin 0.4 mg/dL (0.3-1.2); Total Protein 5.1 g/dL (6.2-8.2)
[2020-05-13] MEDS: metroNIDAZOLE-NS PMX 500 MG in SALINE 1 100ML.BAG IVPB SCH ×3 (04:30→20:13)
[2020-05-13] MEDS: CEFEPIME 2 GM in SODIUM CHLORIDE 0.9% 100 ML IVPB SCH ×3 (05:49→21:25)
[2020-05-13] MEDS: SALT AND SODA MOUTHWASH 1,000 ML PO SCH ×5 (05:52→23:45)
[2020-05-13] MEDS: clonazePAM 1 MG TAB PO SCH ×2 (10:18→21:28)
[2020-05-13] MEDS: hydrOXYzine pamoate 25 MG CAP PO SCH ×3 (10:18→21:28)
[2020-05-13] MEDS: FAMOTIDINE 20 MG TAB PO SCH ×2 (10:18→21:28)
[2020-05-13] MEDS: ACYCLOVIR 200 MG CAP PO SCH ×2 (10:18→21:28)
[2020-05-13] MEDS: FLUoxetine HCL 20 MG CAP PO SCH (10:19)
[2020-05-13] MEDS: MAG HYDROX/AL HYDROX/SIMETH 30 ML, LIDOCAINE VISCOUS 30 ML, diphenhydrAMINE ELIXIR 75 M... PO SCH ×12 (10:19→21:30)
[2020-05-13] MEDS: FLUCONAZOLE 100 MG TAB PO SCH (10:19)
[2020-05-13 12:11] LABS: African American GFR (CKD) 113.2 (60.0-200.0); Albumin 3.6 g/dL (3.80-4.90); Anion Gap 6.3 mmol/L (4.00-12.00); BUN/Creat Ratio 14.29 Ratio (12.00-20.00); Carbon Dioxide 25.7 mmol/L (21.6-31.8); Globulin 1.8 g/dL (1.6-3.3); Non-African American GFR(CKD) 97.7 (60.0-200.0); Potassium 3.5 mmol/L (3.5-5.5); Total Bilirubin 0.4 mg/dL (0.2-1.2); Total Protein 5.4 g/dL (6.2-8.2)
[2020-05-13 13:10] LABS: HCT 23.8 % (39.0-53.0); HGB 8.4 gm/dL (13.0-17.5); MCH 32.3 pg (25.0-35.0); MCHC 35.4 g/dL (31.0-37.0); Mean Platelet Volume 8.4; RBC 2.61 m/uL (4.30-5.90); RDW 14.5 % (11.5-15.5)
[2020-05-13 13:18] LABS: Platelet Count 10 k/uL (150-450)
[2020-05-13 13:31] LABS: Neutrophils % (M) 4 %
[2020-05-13 13:33] LABS: Lymphocytes # (M) 0.94 k/uL (1.0-4.8); Monocytes # (M) 0.02 k/uL (0-1.0); Neutrophils # (M) 0.04 k/uL (1.3-7.7); Nucleated Red Blood Cells 0 /100 WBC (0-0); Total Cells Counted 50
[2020-05-13 13:34] LABS: Poikilocytosis (M) Present
--- NOTE | 2020-05-13 14:29 | P.PN ---
Subjective Progress Note Date: 05/13/20 Principal diagnosis: 1. Febrile neutropenia due to chemotherapy 2. Chemotherapy induced pancytopenia 3. AML 4. Neutorpenic typhlitis Plt better today. Pt without new complaints. Continues to have some diarrhea. Objective - Vital Signs Vital signs: Vital Signs Temp 98.1 F 05/13/20 04:25 Pulse 72 05/13/20 04:25 Resp 16 05/13/20 04:25 BP 128/70 05/13/20 04:25 Pulse Ox 99 05/13/20 04:25 Intake & Output 05/12/20 05/13/20 05/13/20 18:59 06:59 18:59 Intake Total 240 1569 Output Total 600 1400 Balance -360 169 Weight 76.5 kg 76.5 kg Intake: Intake, IV Titration 800 Amount Cefepime 2 gm In Sodium 200 Chloride 0.9% 100 ml @ 25 mls/hr IVPB Q8H [facility] Rx#: [id number] Dextrose 5%-0.9% NaCl 1, 400 000 ml @ 100 mls/hr IV . Q10H [facility] Rx#:[id number] metroNIDAZOLE-NS PMX 500 200 mg In Saline 1 100ml.bag @ 100 mls/hr IVPB Q8H [facility] Rx#:[id number] Oral 240 480 Blood Product 289 Platelet Irr Pheresis Pas 289 -C Unit [id number] Output: Urine 600 1400 Other: Voiding Method Toilet Urinal # Voids 2 - Exam Gen.: In no acute distress. HEENT: Mucosa moist Neck: Supple. Lungs: No respiratory distress. Heart: Regular rate and rhythm. Abdomen: Soft. MSK: Appropriate strength in all 4 extremities. Neuro: Alert and oriented 3. Skin: No jaundice. Psych: Appropriate affect. - Labs CBC & Chem 7: 05/13/20 06:40 05/13/20 06:40 Labs: Abnormal Lab Results - Last 24 Hours (Table) 05/05/20 05/12/20 05/12/20 Range/Units 04:06 08:26 13:00 WBC (3.8-10.6) k/uL RBC (4.30-5.90) m/uL Hgb (13.0-17.5) gm/dL Hct (39.0-53.0) % Plt Count (150-450) k/uL Neutrophils # (Manual) (1.3-7.7) k/uL Lymphocytes # (Manual) (1.0-4.8) k/uL INR 1.2 H (<1.2) Chloride 113 H (96-109) mmol/L Calcium 7.7 L (8.7-10.3) mg/dL Alkaline Phosphatase (41-126) U/L Total Protein (6.2-8.2) g/dL Albumin (3.80-4.90) g/dL Crossmatch See Detail 05/12/20 05/13/20 05/13/20 Range/Units 13:00 06:40 06:40 WBC 1.0 L* (3.8-10.6) k/uL RBC 2.61 L (4.30-5.90) m/uL Hgb 8.4 L (13.0-17.5) gm/dL Hct 23.8 L (39.0-53.0) % Plt Count 10 L* D (150-450) k/uL Neutrophils # (Manual) 0.04 L* (1.3-7.7) k/uL Lymphocytes # (Manual) 0.94 L (1.0-4.8) k/uL INR (<1.2) Chloride 113 H 111 H (96-109) mmol/L Calcium 7.8 L 8.0 L (8.7-10.3) mg/dL Alkaline Phosphatase 40 L (41-126) U/L Total Protein 5.1 L 5.4 L (6.2-8.2) g/dL Albumin 3.40 L 3.60 L (3.80-4.90) g/dL Crossmatch Assessment and Plan Assessment: 1. Febrile neutropenia due to chemotherapy 2. Chemotherapy induced pancytopenia 3. AML 4. Neutorpenic typhlitis Plan: Mr. Chand is a very pleasant 69-year-old gentleman with a history of AML currently not in remission, status post induction and consolidation 1 cycle, here for neutropenic fever and neutropenic typhlitis. Continue supportive care. Continue clear liquids for now and only very slowly advancing diet as his counts improve. Continue supportive transfusions for chemotherapy induced pancytopenia for hemoglobin less than 7 and platelets less than 10. He did receive crossmatch platelets yesterday due to persistent severe thrombocytopenia with platelets of the single digits despite irradiated platelet transfusion. Plts this am improved to 10. Will plan on plt transfusion for tomorrow, crossmatched plts. No G-CSF. Irradiated blood products only. Discussed with patient and he is agreeable to the plan. All of his questions were answered.
[2020-05-13] MEDS: DEXTROSE 5%-0.9% NACL 1,000 ML IV SCH ×2 (16:16→21:25)
--- NOTE | 2020-05-13 16:57 | P.PN ---
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 Patient is nothing by mouth as per Oncology., Patient was started on D5 which will be switched to D5 normal saline. Patient probably can be started on clear liquid diet patient is presently on cefepime and metronidazole. Still has some abdominal pain although significantly improved compared to yesterday was complaining of diarrhea. Patient received 1 unit of irradiated PRBC along with platelet transfusion present hemoglobin is 6.9 platelets 14,000. 05/13/2020 Patient is seen and evaluated resting comfortably in bed; denies any complaints of abdominal pain; remains on clear liquid diet and is tolerated well, plan is to advance slowly; patient has been evaluated by ID and is recommended to juan carlos bradshaw with empiric antibiotic treatment in form of cefepime and Flagyl; hemoglobin and white blood count are stable; patient has been evaluated by oncology and is recommended platelet infusion; platelet count is at 10 this morning; no plan for GCSF; patient is recommended irradiated blood products only Objective - Vital Signs Vital signs: Vital Signs Temp 98.1 F 05/13/20 04:25 Pulse 72 05/13/20 04:25 Resp 16 05/13/20 04:25 BP 128/70 05/13/20 04:25 Pulse Ox 99 05/13/20 04:25 Intake & Output 05/12/20 05/13/20 05/13/20 18:59 06:59 18:59 Intake Total 240 1569 Output Total 600 1400 Balance -360 169 Weight 76.5 kg 76.5 kg Intake: Intake, IV Titration 800 Amount Cefepime 2 gm In Sodium 200 Chloride 0.9% 100 ml @ 25 mls/hr IVPB Q8H [facility] Rx#: [id number] Dextrose 5%-0.9% NaCl 1, 400 000 ml @ 100 mls/hr IV . Q10H [facility] Rx#:[id number] metroNIDAZOLE-NS PMX 500 200 mg In Saline 1 100ml.bag @ 100 mls/hr IVPB Q8H [facility] Rx#:[id number] Oral 240 480 Blood Product 289 Platelet Irr Pheresis Pas 289 -C Unit [id number] Output: Urine 600 1400 Other: Voiding Method Toilet Urinal # Voids 2 - Exam GENERAL: The patient is alert and oriented x3, not in any acute distress. Patient is sleeping although easily arousable. Well developed, well nourished. HEENT: Pupils are round and equally reacting to light. EOMI. No scleral icterus. Does have conjunctival pallor. Normocephalic, atraumatic. No pharyngeal erythema. No thyromegaly. CARDIOVASCULAR: S1 and S2 present. No murmurs, rubs, or gallops. PULMONARY: Chest is clear to auscultation, no wheezing or crackles. ABDOMEN: Soft, nontender, nondistended, normoactive bowel sounds. No palpable organomegaly. Petechia noted on the abdomen along with bilateral lower extremities that continues to improve MUSCULOSKELETAL: No joint swelling or deformity. EXTREMITIES: No cyanosis, clubbing, or pedal edema. NEUROLOGICAL: Gross neurological examination did not reveal any focal deficits. SKIN: Diffuse petechial rash secondary to thrombocytopenia - Labs CBC & Chem 7: 05/13/20 06:40 05/13/20 06:40 Labs: Abnormal Lab Results - Last 24 Hours (Table) 05/05/20 05/12/20 05/12/20 Range/Units 04:06 08:26 13:00 INR 1.2 H (<1.2) Chloride 113 H (96-109) mmol/L Calcium 7.7 L (8.7-10.3) mg/dL Alkaline Phosphatase (41-126) U/L Total Protein (6.2-8.2) g/dL Albumin (3.80-4.90) g/dL Crossmatch See Detail 05/12/20 05/13/20 Range/Units 13:00 06:40 INR (<1.2) Chloride 113 H 111 H (96-109) mmol/L Calcium 7.8 L 8.0 L (8.7-10.3) mg/dL Alkaline Phosphatase 40 L (41-126) U/L Total Protein 5.1 L 5.4 L (6.2-8.2) g/dL Albumin 3.40 L 3.60 L (3.80-4.90) g/dL Crossmatch Assessment and Plan Assessment: -Severe Sepsis, febrile neutropenia: Secondary to most probably diverticulitis: Patient maintained on cefepime, metronidazole and infectious disease is following. Patient remains afebrile -Acute myeloblastic leukemia: Oncology following patient underwent chemotherapy recently -Pancytopenia with very low hemoglobin patient received irradiated RBCX2 and platelet transfusionX4. Hemoglobin was found to be 7.8 today and platelets were low again today at 3 and awaiting to receive a transfusion of irradiated platelets -Hypovolemic hyponatremia: Improved now -Mild hypokalemia, improved -Hypertension -Hyperlipidemia -Depression -Because of his severe thrombocytopenia patient cannot receive any pharmacologic DVT prophylaxis -GI prophylaxis: Pepcid Plan: Continue with current medications. Patient continues with clear liquids and tolerating well with no advancing diet at this time. This was discussed with oncology as well. Patient also was maintained on IV antibiotics in the form of cefepime along with Flagyl and will continue. Infectious disease is following. Will continue to monitor vital signs and labs closely. Patient has been afebrile. will repeat a.m. labs. Patient currently awaiting to receive irradiated platelets for platelet count of 3 this morning. White blood count this morning was 0.8 and hemoglobin is stable at 7.8. Patient is requesting to go home although will need to discuss with oncology. Further recommendations to follow depending on the clinical course patient. Prognosis is guarded
--- NOTE | 2020-05-13 20:13 | PN ---
PROGRESS NOTE DATE OF SERVICE: 05/13/2020. REASON FOR FOLLOWUP: Febrile neutropenia and diverticulitis. INTERVAL HISTORY: The patient is currently afebrile. The patient is breathing comfortably. Denies having any chest pain or any cough. No abdominal pain and diarrhea has resolved. PHYSICAL EXAMINATION: Blood pressure 120/63 with a pulse of 64. Temperature 98.1. He is 99% on room air. General description: The patient is an elderly male lying in bed in no distress. Respiratory system: Unlabored breathing. Clear to auscultation anteriorly. Heart S1, S2. Regular rate and rhythm. Abdomen soft, no tenderness. LABS: Hemoglobin 8.4, white count 1.0, BUN of 10, creatinine 0.7. DIAGNOSTIC IMPRESSION AND PLAN: Patient with febrile neutropenia source is likely diverticulitis. Clinically responding to cefepime and Flagyl to continue while inpatient. Hopefully finish therapy with oral antibiotics. Continue supportive care. MMODL / IJN: [id number] /
[2020-05-14] MEDS: metroNIDAZOLE-NS PMX 500 MG in SALINE 1 100ML.BAG IVPB SCH ×3 (03:24→19:12)
[2020-05-14] MEDS: CEFEPIME 2 GM in SODIUM CHLORIDE 0.9% 100 ML IVPB SCH ×3 (05:46→23:44)
[2020-05-14] MEDS: SALT AND SODA MOUTHWASH 1,000 ML PO SCH ×5 (06:00→23:48)
[2020-05-14 06:26] LABS: MCH 30.9 pg (25.0-35.0); MCHC 35.1 g/dL (31.0-37.0); MCV 88.2 fL (80.0-100.0); Mean Platelet Volume 7.5; RBC 2.11 m/uL (4.30-5.90); RDW 13.3 % (11.5-15.5)
[2020-05-14 06:42] LABS: WBC 0.8 k/uL (3.8-10.6)
[2020-05-14 06:46] LABS: HCT 18.6 % (39.0-53.0); Platelet Count 3 k/uL (150-450)
[2020-05-14 06:47] LABS: HGB 6.5 gm/dL (13.0-17.5)
[2020-05-14] MEDS: ACYCLOVIR 200 MG CAP PO SCH ×2 (08:13→21:35)
[2020-05-14] MEDS: MAG HYDROX/AL HYDROX/SIMETH 30 ML, LIDOCAINE VISCOUS 30 ML, diphenhydrAMINE ELIXIR 75 M... PO SCH ×12 (08:13→21:37)
[2020-05-14] MEDS: hydrOXYzine pamoate 25 MG CAP PO SCH ×3 (08:13→21:35)
[2020-05-14] MEDS: FAMOTIDINE 20 MG TAB PO SCH ×2 (08:13→21:35)
[2020-05-14] MEDS: FLUoxetine HCL 20 MG CAP PO SCH (08:13)
[2020-05-14] MEDS: FLUCONAZOLE 100 MG TAB PO SCH (08:13)
[2020-05-14] MEDS: clonazePAM 1 MG TAB PO SCH ×2 (08:13→21:35)
[2020-05-14 09:14] LABS: African American GFR (CKD) 113.2 (60.0-200.0); Anion Gap 5.9 mmol/L (4.00-12.00); BUN/Creat Ratio 14.29 Ratio (12.00-20.00); Calcium 7.7 mg/dL (8.7-10.3); Carbon Dioxide 27.1 mmol/L (21.6-31.8); Non-African American GFR(CKD) 97.7 (60.0-200.0); Potassium 3.5 mmol/L (3.5-5.5)
[2020-05-14] MEDS: DEXTROSE 5%-0.9% NACL 1,000 ML IV SCH ×2 (12:52→19:09)
--- NOTE | 2020-05-14 17:31 | P.PN ---
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 Patient is nothing by mouth as per Oncology., Patient was started on D5 which will be switched to D5 normal saline. Patient probably can be started on clear liquid diet patient is presently on cefepime and metronidazole. Still has some abdominal pain although significantly improved compared to yesterday was complaining of diarrhea. Patient received 1 unit of irradiated PRBC along with platelet transfusion present hemoglobin is 6.9 platelets 14,000. 05/13/2020 Patient is seen and evaluated resting comfortably in bed; denies any complaints of abdominal pain; remains on clear liquid diet and is tolerated well, plan is to advance slowly; patient has been evaluated by ID and is recommended to continue with empiric antibiotic treatment in form of cefepime and Flagyl; hemoglobin and white blood count are stable; patient has been evaluated by on cology and is recommended platelet infusion; platelet count is at 10 this morning; no plan for GCSF; patient is recommended irradiated blood products only 05/14/2020 Patient is seen and evaluated resting comfortably in bed; denies any specific complaints Vital signs are reviewed and stable; lab review reveals a WBC of 0.8, hemoglobin of 6.5 with platelets of 3; patient received transfusion with packed RBCs and platelets; oncology is following; we will monitor CBC closely; further recommendations pending oncology evaluation Objective - Vital Signs Vital signs: Vital Signs Temp 97.7 F 05/14/20 04:42 Pulse 62 05/14/20 04:42 Resp 16 05/14/20 04:42 BP 139/71 05/14/20 04:42 Pulse Ox 95 05/14/20 04:42 Intake & Output 05/13/20 05/14/20 05/14/20 18:59 06:59 18:59 Intake Total 1200 320 Output Total 900 300 Balance 300 -300 320 Intake: Intake, IV Titration 1200 Amount Cefepime 2 gm In Sodium 100 Chloride 0.9% 100 ml @ 25 mls/hr IVPB Q8H [facility] Rx#: [id number] Dextrose 5%-0.9% NaCl 1, 1000 000 ml @ 100 mls/hr IV . Q10H [facility] Rx#:[id number] metroNIDAZOLE-NS PMX 500 100 mg In Saline 1 100ml.bag @ 100 mls/hr IVPB Q8H [facility] [place] Rx#:[id number] Oral 320 Output: Urine 900 300 Other: Voiding Method Toilet Toilet Urinal Urinal - Exam GENERAL: The patient is alert and oriented x3, not in any acute distress. Reggie chery is sleeping although easily arousable. Well developed, well nourished. HEENT: Pupils are round and equally reacting to light. EOMI. No scleral icterus. Does have conjunctival pallor. Normocephalic, atraumatic. No pharyngeal erythema. No thyromegaly. CARDIOVASCULAR: S1 and S2 present. No murmurs, rubs, or gallops. PULMONARY: Chest is clear to auscultation, no wheezing or crackles. ABDOMEN: Soft, nontender, nondistended, normoactive bowel sounds. No palpable organomegaly. Petechia noted on the abdomen along with bilateral lower extremities that continues to improve MUSCULOSKELETAL: No joint swelling or deformity. EXTREMITIES: No cyanosis, clubbing, or pedal edema. NEUROLOGICAL: Gross neurological examination did not reveal any focal deficits. SKIN: Diffuse petechial rash secondary to thrombocytopenia - Labs CBC & Chem 7: 05/14/20 05:57 05/14/20 05:57 Labs: Abnormal Lab Results - Last 24 Hours (Table) 05/14/20 05/14/20 05/14/20 Range/Units 05:57 05:57 10:47 WBC 0.8 L* (3.8-10.6) k/uL RBC 2.11 L (4.30-5.90) m/uL Hgb 6.5 L* D (13.0-17.5) gm/dL Hct 18.6 L* (39.0-53.0) % Plt Count 3 L* D (150-450) k/uL Chloride 110 H (96-109) mmol/L Calcium 7.7 L (8.7-10.3) mg/dL Crossmatch See Detail Assessment and Plan Assessment: -Severe Sepsis, febrile neutropenia: Secondary to most probably diverticulitis: Patient maintained on cefepime, metronidazole and infectious disease is following. Patient remains afebrile -Acute myeloblastic leukemia: Oncology following patient underwent chemotherapy recently -Pancytopenia with very low hemoglobin patient received irradiated RBCX2 and platelet transfusionX4. Hemoglobin was found to be 7.8 today and platelets were low again today at 3 and awaiting to receive a transfusion of irradiated platelets -Hypovolemic hyponatremia: Improved now -Mild hypokalemia, improved -Hypertension -Hyperlipidemia -Depression -Because of his severe thrombocytopenia patient cannot receive any pharmacologic DVT prophylaxis -GI prophylaxis: Pepcid Plan: Continue with current medications. Patient continues with clear liquids and tolerating well with no advancing diet at this time. This was discussed with oncology as well. Patient also was maintained on IV antibiotics in the form of cefepime along with Flagyl and will continue. Infectious disease is following. Will continue to monitor vital signs and labs closely. Patient has been afebrile. will repeat a.m. labs. Patient currently awaiting to receive irradiated platelets for platelet count of 3 this morning. White blood count this morning was 0.8 and hemoglobin is stable at 7.8. Patient is requesting to go home although will need to discuss with oncology. Further recommendations to follow depending on the clinical course patient. Prognosis is guarded
[2020-05-14] MEDS: CHOLESTYRAMINE (WITH SUGAR) 4 GM PACKET PO SCH (17:32)
--- NOTE | 2020-05-14 18:38 | PN ---
PROGRESS NOTE DATE OF SERVICE: 05/14/2020 REASON FOR FOLLOWUP: 1. Febrile neutropenia. 2. Diverticulitis. INTERVAL HISTORY: The patient is currently afebrile. Patient is breathing comfortably. Denies having any chest pain. No shortness of breath or cough. No abdominal pain. Still having diarrhea. PHYSICAL EXAMINATION: Blood pressure 113/65 with a pulse of 78, temperature 98.3. He is 99% on room air. General description is an elderly male lying in bed in no distress. Respiratory system: Unlabored breathing. Clear to auscultation anteriorly. Heart S1, S2. Regular rate and rhythm. Abdomen: Soft, no tenderness. LABS: White count still 0.8. Blood culture has been negative. DIAGNOSTIC IMPRESSION AND PLAN: Patient with febrile neutropenia, source likely diverticulitis, clinically responding to cefepime and Flagyl to continue while inpatient. Finish therapy with oral antibiotics. Continue supportive care. MMODL / IJN: [id number] /
[2020-05-15] MEDS: DEXTROSE 5%-0.9% NACL 1,000 ML IV SCH ×2 (03:28→13:38)
[2020-05-15] MEDS: metroNIDAZOLE-NS PMX 500 MG in SALINE 1 100ML.BAG IVPB SCH ×3 (03:45→17:55)
[2020-05-15] MEDS: CEFEPIME 2 GM in SODIUM CHLORIDE 0.9% 100 ML IVPB SCH ×3 (05:39→20:15)
[2020-05-15 05:42] LABS: HCT 21.1 % (39.0-53.0); HGB 7.7 gm/dL (13.0-17.5); MCH 31.4 pg (25.0-35.0); MCHC 36.2 g/dL (31.0-37.0); MCV 86.7 fL (80.0-100.0); Mean Platelet Volume 8.6; RBC 2.44 m/uL (4.30-5.90); RDW 13.4 % (11.5-15.5)
[2020-05-15] MEDS: SALT AND SODA MOUTHWASH 1,000 ML PO SCH ×5 (05:44→23:19)
[2020-05-15 05:46] LABS: Platelet Count 15 k/uL (150-450); WBC 0.8 k/uL (3.8-10.6)
[2020-05-15 06:26] LABS: Poikilocytosis (M) Present
[2020-05-15 09:18] LABS: African American GFR (CKD) 113.2 (60.0-200.0); Anion Gap 7.8 mmol/L (4.00-12.00); BUN/Creat Ratio 11.43 Ratio (12.00-20.00); Carbon Dioxide 26.2 mmol/L (21.6-31.8); Non-African American GFR(CKD) 97.7 (60.0-200.0); Potassium 3.4 mmol/L (3.5-5.5)
[2020-05-15] MEDS: FLUoxetine HCL 20 MG CAP PO SCH (09:35)
[2020-05-15] MEDS: CHOLESTYRAMINE (WITH SUGAR) 4 GM PACKET PO SCH ×2 (09:35→17:56)
[2020-05-15] MEDS: FLUCONAZOLE 100 MG TAB PO SCH (09:36)
[2020-05-15] MEDS: hydrOXYzine pamoate 25 MG CAP PO SCH ×3 (09:36→22:07)
[2020-05-15] MEDS: FAMOTIDINE 20 MG TAB PO SCH ×2 (09:36→20:15)
[2020-05-15] MEDS: ACYCLOVIR 200 MG CAP PO SCH ×2 (09:36→20:15)
[2020-05-15] MEDS: clonazePAM 1 MG TAB PO SCH ×2 (09:36→20:15)
[2020-05-15] MEDS: MAG HYDROX/AL HYDROX/SIMETH 30 ML, LIDOCAINE VISCOUS 30 ML, diphenhydrAMINE ELIXIR 75 M... PO SCH ×16 (09:37→22:09)
--- NOTE | 2020-05-15 13:22 | P.PN ---
Subjective Progress Note Date: 05/15/20 HISTORY OF PRESENT ILLNESS This is a 69-year-old male being followed for febrile neutropenia and diverticu litis. Patient states that his diarrhea has resolved. He denies nausea vomiting. He denies any fever or chills. No shortness of breath or cough. He is currently on clear liquid diet. Patient has been treated with cefepime and Flagyl. Patient has been afebrile, heart rate 64, blood pressure 127/76, pulse ox 97% on room air. WBC 0.8, hemoglobin 7.7, platelet count 15. Potassium 3.4. PHYSICAL EXAMINATION Gen: This is a 69-year-old male. He is resting bed and appears to be in no acute distress. HEENT: Head is atraumatic, normocephalic. Pupils equal, round. NECK: Supple. No JVD. No lymphadenopathy. LUNGS: Clear to auscultation. No wheezes or rhonchi. No intercostal ret ractions. HEART: Regular rate and rhythm. No murmur. ABDOMEN: Soft. Bowel sounds are present. No masses. No tenderness. EXTREMITIES: No pedal edema. No calf tenderness. NEUROLOGICAL: Patient is awake, alert and oriented x3. ASSESSMENT Febrile neutropenia Diverticulitis Pancytopenia PLAN Continue cefepime and Flagyl Plan for ciprofloxacin for 7 day course at discharge, prescription sent to his pharmacy Advance diet Continue supportive care. The above dictated assessment and findings were discussed with Dr. Mathur. The impression and plan of care have been directed as dictated. Ines Putnam nurse practitioner acting as scribe for Dr. Mathur. Objective - Vital Signs Vital signs: Vital Signs Temp 98.3 F 05/15/20 04:50 Pulse 62 05/15/20 04:50 Resp 16 05/15/20 09:31 BP 116/64 05/15/20 04:50 Pulse Ox 96 05/15/20 04:50 Intake & Output 05/14/20 05/15/20 05/15/20 18:59 06:59 18:59 Intake Total 1324 310 320 Output Total 950 800 Balance 8652 -441 -041 Weight 76.5 kg Intake: Intake, IV Titration 100 Amount metroNIDAZOLE-NS PMX 500 100 mg In Saline 1 100ml.bag @ 100 mls/hr IVPB Q8H [facility] Rx#:[id number] Oral 640 320 Blood Product 584 310 Platelet Irr Pheresis Pas 292 -C Unit [id number] Rc Irr As1 Unit 310 [id number] Output: Urine 950 800 Other: Voiding Method Toilet Toilet Toilet Urinal Urinal Urinal # Voids 3 - Labs CBC & Chem 7: 05/15/20 05:04 05/15/20 05:04 Labs: Abnormal Lab Results - Last 24 Hours (Table) 05/14/20 05/15/20 05/15/20 Range/Units 10:47 05:04 05:04 WBC 0.8 L* (3.8-10.6) k/uL RBC 2.44 L (4.30-5.90) m/uL Hgb 7.7 L (13.0-17.5) gm/dL Hct 21.1 L (39.0-53.0) % Plt Count 15 L* D (150-450) k/uL Potassium 3.4 L (3.5-5.5) mmol/L BUN 8.0 L (9.0-27.0) mg/dL BUN/Creatinine Ratio 11.43 L (12.00-20.00) Ratio Calcium 8.0 L (8.7-10.3) mg/dL Crossmatch See Detail
[2020-05-15] MEDS ORDERED: POTASSIUM CHLORIDE ER 20 MEQ TAB.ER PO STA (13:50)
--- NOTE | 2020-05-15 13:59 | P.PN ---
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 Patient is nothing by mouth as per Oncology., Patient was started on D5 which will be switched to D5 normal saline. Patient probably can be started on clear liquid diet patient is pres ently on cefepime and metronidazole. Still has some abdominal pain although significantly improved compared to yesterday was complaining of diarrhea. Patient received 1 unit of irradiated PRBC along with platelet transfusion present hemoglobin is 6.9 platelets 14,000. 05/07/2020 Patient received one more unit of irradiated PRBC along with platelets as today. Patient is still having fevers part of which is probably from leukemia infectious disease will be consulted to get all the cultures are negative patient remains nothing by mouth we'll check a check with the oncology patient can be started on clear liquid diet. Patient is still having abdominal pain and does have abdominal tenderness as well. Patient remains on cefepime and metronidazole. 05/08/2020 Patient's abdominal pain significantly improved can use to have fevers. Patient diet will be advanced to full liquid diet. His pain improved 05/09/2020 Patient is seen and evaluated in follow-up with no acute overnight issues. Patient continues to have loose stool along with mild abdominal pain and patient's diet will continue with clear liquids. Patient is maintained on IV antibiotics in the form of cefepime and Flagyl and will continue at this time. Infectious disease is following. Patient's hemoglobin was found to be 6.5 and currently awaiting a unit of PRBCs. Potassium was also slightly low at 3.3 and will replace and repeat labs. Sodium is 139 and creatinine is 0.76. White blood count is 0.6 and platelets continue to be low at 6. Oncology is following closely. 05/10/2020 Patient is seen and evaluated and follow-up stating his abdominal pain has subsided and patient is maintained on clear liquids and will continue at this time. Patient did receive a unit of platelets along with a unit of PRBCs and hemoglobin is 7.5 with platelets of 12 today. Oncology is following closely. Patient is maintained on antibiotics for diverticulitis and will continue at this time. Potassium was replaced and currently awaiting repeat labs. Will continue to monitor closely. Patient states he is having bowel movements that are more formed today. 05/11/2020 Patient is seen in follow-up this morning and hemoglobin is currently 7.4, white blood count 0.6, and platelets low at 6 and awaiting to receive platelet transfusion. IV antibiotics in the form of cefepime and Flagyl and infectious disease is following and will continue at this time. Patient's abdominal pain has subsided and having less frequent bowel movements. Patient's potassium was replaced yesterday and is currently 3.6. Will repeat a.m. labs and continue to monitor closely. Cardiology is following as well. 05/12/2020 Patient is seen and evaluated in follow-up with no acute overnight issues. Abdominal pain has resolved and patient is maintained on clear liquids. Patient also continues on empiric antibiotics in the form of cefepime and Flagyl. Infectious disease is following. Patient hemoglobin today is stable at 7.8 and white blood count slightly up at 0.8. Platelets are low at 3 and currently awaiting to receive irradiated platelets. Oncology is following. Patient has been afebrile vital signs within normal limits. Patient is requesting to go home. 05/13/2020 Patient is seen and evaluated resting comfortably in bed; denies any complaints of abdominal pain; remains on clear liquid diet and is tolerated well, plan is to advance slowly; patient has been evaluated by ID and is recommended to continue with empiric antibiotic treatment in form of cefepime and Flagyl; hemoglobin and white blood count are stable; patient has been evaluated by oncology and is recommended platelet infusion; platelet count is at 10 this morning; no plan for GCSF; patient is recommended irradiated blood products only 05/14/2020 Patient is seen and evaluated resting comfortably in bed; denies any specific complaints Vital signs are reviewed and stable; lab review reveals a WBC of 0.8, hemoglobin of 6.5 with platelets of 3; patient received transfusion with packed RBCs and platelets; oncology is following; we will monitor CBC closely; further recommendations pending oncology evaluation 05/15/2020 Patient is seen this morning with no acute overnight issues. Platelets this morning are 15 and hemoglobin is 7.7. Discussed with oncology about advancing diet and will attempt full liquids and repeat a.m. labs. Patient is currently maintained on IV antibiotics and to continue and we'll transition to oral antibiotics upon discharge. Infectious disease is following. Abdominal pain has resolved. Will repeat CBC with differential and if numbers are above 7 and hemoglobin above 10 on platelets and will attempt a soft diet and monitor for tolerance and discussed discharge planning at that point. This was all discussed with oncology team. Potassium this morning is 3.4 and will replace. Review of systems: Constitutional: Denied any fatigue denied any fever. Cardio vascular: denied any chest pain, palpitations Gastrointestinal: denied any nausea vomiting, reports continued loose stools although only once daily Pulmonary: No reports of shortness of breath or cough Neurologic denied any new focal deficits All inpatient medications were reviewed and appropriate changes in these medications as dictated in the interval history and assessment and plan. Objective - Vital Signs Vital signs: Vital Signs Temp 98.3 F 05/15/20 04:50 Pulse 62 05/15/20 04:50 Resp 16 05/15/20 09:31 BP 116/64 05/15/20 04:50 Pulse Ox 96 05/15/20 04:50 Intake & Output 05/14/20 05/15/20 05/15/20 18:59 06:59 18:59 Intake Total 1324 310 320 Output Total 950 Balance 1324 -640 320 Weight 76.5 kg Intake: Intake, IV Titration 100 Amount metroNIDAZOLE-NS PMX 500 100 mg In Saline 1 100ml.bag @ 100 mls/hr IVPB Q8H [facility] Rx#:[id number] Oral 640 320 Blood Product 584 310 Platelet Irr Pheresis Pas 292 -C Unit [id number] Rc Irr As1 Unit 310 [id number] Output: Urine 950 Other: Voiding Method Toilet Toilet Toilet Urinal Urinal Urinal # Voids 3 - Exam GENERAL: The patient is alert and oriented x3, not in any acute distress. Patient is awake and sitting up in bed. Well developed, well nourished. HEENT: Pupils are round and equally reacting to light. EOMI. No scleral icterus. Does have conjunctival pallor. Normocephalic, atraumatic. No pharyngeal erythema. No thyromegaly. CARDIOVASCULAR: S1 and S2 present. No murmurs, rubs, or gallops. PULMONARY: Chest is clear to auscultation, no wheezing or crackles. ABDOMEN: Soft, nontender, nondistended, normoactive bowel sounds. No palpable organomegaly. MUSCULOSKELETAL: No joint swelling or deformity. EXTREMITIES: No cyanosis, clubbing, or pedal edema. NEUROLOGICAL: Gross neurological examination did not reveal any focal deficits. SKIN: Diffuse petechial rash secondary to thrombocytopenia, improved - Labs CBC & Chem 7: 05/15/20 05:04 05/15/20 05:04 Labs: Abnormal Lab Results - Last 24 Hours (Table) 05/14/20 05/15/20 05/15/20 Range/Units 10:47 05:04 05:04 WBC 0.8 L* (3.8-10.6) k/uL RBC 2.44 L (4.30-5.90) m/uL Hgb 7.7 L (13.0-17.5) gm/dL Hct 21.1 L (39.0-53.0) % Plt Count 15 L* D (150-450) k/uL Potassium 3.4 L (3.5-5.5) mmol/L BUN 8.0 L (9.0-27.0) mg/dL BUN/Creatinine Ratio 11.43 L (12.00-20.00) Ratio Calcium 8.0 L (8.7-10.3) mg/dL Crossmatch See Detail Assessment and Plan Assessment: -Severe Sepsis, febrile neutropenia: Secondary to most probably diverticulitis: Patient maintained on cefepime, metronidazole and infectious disease is following. Patient remains afebrile. Patient will transition to oral Cipro on discharge -Acute myeloblastic leukemia: Oncology following patient underwent chemotherapy recently -Pancytopenia. Hemoglobin was found to be 7.7 today and platelets were 15 today status post transfusion yesterday -Hypovolemic hyponatremia: Improved now -Mild hypokalemia, improved -Hypertension -Hyperlipidemia -Depression -DVT prophylaxis: Because of his severe thrombocytopenia patient cannot receive any pharmacologics, early ambulation -GI prophylaxis: Pepcid Plan: Continue with current medications. Patient continues with clear liquids and tolerating well. Discussed with oncology about advancing diet to full liquids with the possibility of a soft diet tomorrow if tolerated. Will repeat CBC with differential tomorrow to monitor for possible PRBC or platelet transfusion. Patient maintained on IV antibiotics in the form of cefepime along with Flagyl and will continue. Infectious disease is following. Will transition to oral Cipro upon discharge. Will continue to monitor vital signs and labs closely. Patient has been afebrile. Potassium 3.4 today and will be replaced. Patient is requesting to go home and discussed treatment plan with oncology along with patient. Further recommendations to follow depending on the clinical course patient. Prognosis is guarded. Possible discharge in 24 hours.
--- NOTE | 2020-05-15 19:20 | P.PN ---
Subjective Progress Note Date: 05/15/20 Principal diagnosis: Acute Leukemia Patient is feeling better today, no abdominal pain. His CBC is stable, without need for transfusion, although WBC still low. No neutrophils populated, would like neutrophils greater than 500 prior to advancing to full regular diet, He was started on Full liquids from clears today so will monitor closely. Platelet count 15K, Hemoglobin 7.7, WBC increased to 0.8. Objective - Vital Signs Vital signs: Vital Signs Temp 98.2 F 05/15/20 12:21 Pulse 64 05/15/20 12:21 Resp 16 05/15/20 12:21 BP 127/76 05/15/20 12:21 Pulse Ox 97 05/15/20 12:21 Intake & Output 05/15/20 05/15/20 05/16/20 06:59 18:59 06:59 Intake Total 310 1070 Output Total 950 1400 Balance -640 -330 Intake: Oral 1070 Blood Product 310 Rc Irr As1 Unit 310 [id number] Output: Urine 950 1400 Other: Voiding Method Toilet Toilet Urinal Urinal # Voids 3 - Exam - Constitutional General appearance: Present: average body habitus, cooperative, no acute distress - EENT Eyes: Present: anicteric sclerae, EOMI ENT: Present: hearing grossly normal, normal oropharynx - Respiratory Respiratory: bilateral: CTA - Cardiovascular Heart sounds: normal: S1, S2 Abnormal Heart Sounds: Absent: systolic murmur, diastolic murmur, rub, S3 Gallop, S4 Gallop, click, other - Gastrointestinal General gastrointestinal: Present: normal bowel sounds, soft. Absent: absent bowel sounds, decreased bowel sounds, distended, hepatomegaly, hyperactive bowel sounds, organomegaly, rigid, scaphoid, splenomegaly, tenderness, umbilical hernia, ventral hernia - Neurologic Neurologic: Present: CNII-XII intact - Musculoskeletal Musculoskeletal: Present: strength equal bilaterally - Psychiatric Psychiatric: Present: A&O x's 3, appropriate affect, intact judgment & insight - Labs CBC & Chem 7: 05/15/20 05:04 05/15/20 05:04 Labs: Abnormal Lab Results - Last 24 Hours (Table) 05/14/20 05/15/20 05/15/20 Range/Units 10:47 05:04 05:04 WBC 0.8 L* (3.8-10.6) k/uL RBC 2.44 L (4.30-5.90) m/uL Hgb 7.7 L (13.0-17.5) gm/dL Hct 21.1 L (39.0-53.0) % Plt Count 15 L* D (150-450) k/uL Potassium 3.4 L (3.5-5.5) mmol/L BUN 8.0 L (9.0-27.0) mg/dL BUN/Creatinine Ratio 11.43 L (12.00-20.00) Ratio Calcium 8.0 L (8.7-10.3) mg/dL Crossmatch See Detail Assessment and Plan Plan: Assessment and Plan Febrile neutropenia - Afebrile currently - Empiric antibiotics continue. Infectious Disease following - No G-CSF as patient is not considered a complete remission from his AML. - Would like to see a differential prior to DC, ANC >500 preferred. Pancytopenia due to antineoplastic chemotherapy - Hemoglobin 7.7 - Platelet Count 15K, no transfusion todayCrossmatched platelets for an ticipation of refractory marrow. - No anticoagulation, aspirin, NSAIDs or pharmacologic DVT prophylaxis. - WBC 0.8. No GCSF as patient is not a confirmed remission, 2-3% residual sue sts on his bone marrow biopsy status post induction. - Irradiated blood products only Acute myeloid leukemia - Status post induction and one consolidation treatment with Vyxeos. He will be following up with BMT. Neutropenic typhlitis - Monitor clinically daily and await ANC 500 or greater prior to advancement of diet. - FUll liquids started today, with increased WBC 0.8, although no populated ANC. Do not advance diet further until ANC populates. Continue transfusions with crossmatched platelets if needed, platelets less than 10K It is not recommended to increase diet further or discharge prior or before ANC is 500, discussed with primary team today. DISPO PLan Recommendations: - ANC Greater than 500 - Asymptomatic - Afebrile - Upward trend of counts Doctor attests: I performed a history and physical examination of this patient, developed impression and plan of care. Discussed with dictator. I agree with dictators note, documented as a scribe.
[2020-05-16] MEDS: metroNIDAZOLE-NS PMX 500 MG in SALINE 1 100ML.BAG IVPB SCH ×2 (02:42→12:28)
[2020-05-16] MEDS: CEFEPIME 2 GM in SODIUM CHLORIDE 0.9% 100 ML IVPB SCH ×2 (04:25→12:20)
[2020-05-16] MEDS: SALT AND SODA MOUTHWASH 1,000 ML PO SCH ×2 (06:14→12:21)
[2020-05-16 06:20] LABS: HCT 21.7 % (39.0-53.0); HGB 7.7 gm/dL (13.0-17.5); MCH 30.9 pg (25.0-35.0); MCHC 35.6 g/dL (31.0-37.0); MCV 86.8 fL (80.0-100.0); Mean Platelet Volume 7.8; RDW 13.2 % (11.5-15.5)
[2020-05-16 06:24] LABS: WBC 0.8 k/uL (3.8-10.6)
[2020-05-16 06:25] LABS: Platelet Count 14 k/uL (150-450)
[2020-05-16 07:24] LABS: Anisocytosis (M) Present
[2020-05-16 07:25] LABS: Poikilocytosis (M) Present
[2020-05-16] MEDS: clonazePAM 1 MG TAB PO SCH (09:22)
[2020-05-16] MEDS: FLUCONAZOLE 100 MG TAB PO SCH (09:23)
[2020-05-16] MEDS: ACYCLOVIR 200 MG CAP PO SCH (09:23)
[2020-05-16] MEDS: FAMOTIDINE 20 MG TAB PO SCH (09:23)
[2020-05-16] MEDS: hydrOXYzine pamoate 25 MG CAP PO SCH (09:23)
[2020-05-16] MEDS: FLUoxetine HCL 20 MG CAP PO SCH (09:23)
[2020-05-16] MEDS: MAG HYDROX/AL HYDROX/SIMETH 30 ML, LIDOCAINE VISCOUS 30 ML, diphenhydrAMINE ELIXIR 75 M... PO SCH ×4 (09:26)
[2020-05-16] MEDS: CHOLESTYRAMINE (WITH SUGAR) 4 GM PACKET PO SCH (09:27)
[2020-05-16 10:53] LABS: African American GFR (CKD) 107.1 (60.0-200.0); Albumin 3.2 g/dL (3.80-4.90); Albumin/Globulin Ratio 1.68 (1.60-3.17); Anion Gap 4.8 mmol/L (4.00-12.00); BUN/Creat Ratio 12.5 Ratio (12.00-20.00); Calcium 7.9 mg/dL (8.7-10.3); Carbon Dioxide 26.2 mmol/L (21.6-31.8); Globulin 1.9 g/dL (1.6-3.3); Non-African American GFR(CKD) 92.4 (60.0-200.0); Potassium 3.7 mmol/L (3.5-5.5); Total Bilirubin 0.5 mg/dL (0.3-1.2); Total Protein 5.1 g/dL (6.2-8.2)
[2020-05-16] MEDS ORDERED: metroNIDAZOLE 500 MG TAB PO SCH (11:00)
[2020-05-16 13:11] VITALS: BP 129/67; PULSE 67; RESP 17; TEMP 98.3
--- NOTE | 2020-05-16 13:34 | P.PN ---
Subjective Progress Note Date: 05/16/20 HISTORY OF PRESENT ILLNESS This is a 69-year-old male being followed for febrile neutropenia and diverticu litis. Patient states that his diarrhea has resolved. He denies nausea vomiting. He denies any fever or chills. No shortness of breath or cough. He is currently on full liquid diet. Patient has been treated with cefepime and Flagyl. Patient has been afebrile, heart rate 67, blood pressure 129/67, pulse ox 97% on room air. WBC 0.8, hemoglobin 7.7, platelet count 14. Creatinine 0.8. PHYSICAL EXAMINATION Gen: This is a 69-year-old male. He is resting bed and appears to be in no acute distress. HEENT: Head is atraumatic, normocephalic. Pupils equal, round. NECK: Supple. No JVD. No lymphadenopathy. LUNGS: Clear to auscultation. No wheezes or rhonchi. No intercostal ret ractions. HEART: Regular rate and rhythm. No murmur. ABDOMEN: Soft. Bowel sounds are present. No masses. No tenderness. EXTREMITIES: No pedal edema. No calf tenderness. NEUROLOGICAL: Patient is awake, alert and oriented x3. ASSESSMENT Febrile neutropenia Diverticulitis Pancytopenia PLAN Continue cefepime and Flagyl Plan for ciprofloxacin for 7 day course at discharge, prescription sent to his pharmacy Advance diet Continue supportive care. The above dictated assessment and findings were discussed with Dr. Mathur. The impression and plan of care have been directed as dictated. Ines Putnam nurse practitioner acting as scribe for Dr. Mathur. Objective - Vital Signs Vital signs: Vital Signs Temp 98.2 F 05/16/20 05:00 Pulse 64 05/16/20 05:00 Resp 16 05/16/20 05:00 BP 113/64 05/16/20 05:00 Pulse Ox 97 05/16/20 05:00 Intake & Output 05/15/20 05/16/20 05/16/20 18:59 06:59 18:59 Intake Total 1070 1000 Output Total 1400 1100 Balance -330 -100 Intake: Intake, IV Titration 640 Amount Cefepime 2 gm In Sodium 200 Chloride 0.9% 100 ml @ 25 mls/hr IVPB Q8H [facility] Rx#: [id number] Dextrose 5%-0.9% NaCl 1, 240 000 ml @ 100 mls/hr IV . Q10H [facility] Rx#:[id number] metroNIDAZOLE-NS PMX 500 200 mg In Saline 1 100ml.bag @ 100 mls/hr IVPB Q8H [facility] Rx#:[id number] Oral 1070 360 Output: Urine 1400 1100 Other: Voiding Method Toilet Toilet Toilet Urinal Urinal Urinal - Labs CBC & Chem 7: 05/16/20 05:43 05/16/20 05:43 Labs: Abnormal Lab Results - Last 24 Hours (Table) 05/16/20 05/16/20 Range/Units 05:43 05:43 WBC 0.8 L* (3.8-10.6) k/uL RBC 2.50 L (4.30-5.90) m/uL Hgb 7.7 L (13.0-17.5) gm/dL Hct 21.7 L (39.0-53.0) % Plt Count 14 L* (150-450) k/uL Chloride 111 H (96-109) mmol/L Calcium 7.9 L (8.7-10.3) mg/dL Total Protein 5.1 L (6.2-8.2) g/dL Albumin 3.20 L (3.80-4.90) g/dL
--- NOTE | 2020-05-16 14:09 | P.PN ---
Subjective Progress Note Date: 05/16/20 Principal diagnosis: Acute Leukemia WBC and no re[portable ANC again today. Tolerating Full liquids Objective - Vital Signs Vital signs: Vital Signs Temp 98.3 F 05/16/20 13:08 Pulse 67 05/16/20 13:08 Resp 17 05/16/20 13:08 BP 129/67 05/16/20 13:08 Pulse Ox 97 05/16/20 13:08 Intake & Output 05/15/20 05/16/20 05/16/20 18:59 06:59 18:59 Intake Total 1070 1000 Output Total 1400 1100 Balance -330 -100 Intake: Intake, IV Titration 640 Amount Cefepime 2 gm In Sodium 200 Chloride 0.9% 100 ml @ 25 mls/hr IVPB Q8H [facility] Rx#: [id number] Dextrose 5%-0.9% NaCl 1, 240 000 ml @ 100 mls/hr IV . Q10H [facility] Rx#:[id number] metroNIDAZOLE-NS PMX 500 200 mg In Saline 1 100ml.bag @ 100 mls/hr IVPB Q8H [facility] Rx#:[id number] Oral 1070 360 Output: Urine 1400 1100 Other: Voiding Method Toilet Toilet Toilet Urinal Urinal Urinal - Exam - Constitutional General appearance: Present: average body habitus, cooperative, no acute distress - EENT Eyes: Present: anicteric sclerae, EOMI ENT: Present: hearing grossly normal, normal oropharynx - Respiratory Respiratory: bilateral: CTA - Cardiovascular Heart sounds: normal: S1, S2 Abnormal Heart Sounds: Absent: systolic murmur, diastolic murmur, rub, S3 Gallop, S4 Gallop, click, other - Gastrointestinal General gastrointestinal: Present: normal bowel sounds, soft. Absent: absent bowel sounds, decreased bowel sounds, distended, hepatomegaly, hyperactive bowel sounds, organomegaly, rigid, scaphoid, splenomegaly, tenderness, umbilical hernia, ventral hernia - Neurologic Neurologic: Present: CNII-XII intact - Musculoskeletal Musculoskeletal: Present: strength equal bilaterally - Psychiatric Psychiatric: Present: A&O x's 3, appropriate affect, intact judgment & insight - Labs CBC & Chem 7: 05/16/20 05:43 05/16/20 05:43 Labs: Abnormal Lab Results - Last 24 Hours (Table) 01/26/21 01/26/21 Range/Units 05:43 05:43 WBC 0.8 L* (3.8-10.6) k/uL RBC 2.50 L (4.30-5.90) m/uL Hgb 7.7 L (13.0-17.5) gm/dL Hct 21.7 L (39.0-53.0) % Plt Count 14 L* (150-450) k/uL Chloride 111 H (96-109) mmol/L Calcium 7.9 L (8.7-10.3) mg/dL Total Protein 5.1 L (6.2-8.2) g/dL Albumin 3.20 L (3.80-4.90) g/dL Assessment and Plan Plan: Assessment and Plan Febrile neutropenia - Afebrile currently - Empiric antibiotics continue. Infectious Disease following - No G-CSF as patient is not considered a complete remission from his AML. - Would like to see a differential prior to DC, ANC >500 preferred. Pancytopenia due to antineoplastic chemotherapy - Hemoglobin 7.7 - Platelet Count 15K, no transfusion todayCrossmatched platelets for anticipation of refractory marrow. - No anticoagulation, aspirin, NSAIDs or pharmacologic DVT prophylaxis. - WBC 0.8. No GCSF as patient is not a confirmed remission, 2-3% residual blasts on his bone marrow biopsy status post induction. - Irradiated blood products only Acute myeloid leukemia - Status post induction and one consolidation treatment with Vyxeos. He will be following up with BMT. Neutropenic typhlitis - Monitor clinically daily and await ANC 500 or greater prior to advancement of diet. - Chopped diet. , with increased WBC 0.8, although no populated ANC. Do not advance diet further until ANC populates. Continue transfusions with crossmatched platelets if needed, platelets less than 10K It is not recommended to increase diet further or discharge prior or before ANC is 500, discussed with primary team today. DISPO PLan Recommendations: - ANC Greater than 500 - Asymptomatic - Afebrile - Without much improvement in the past days of WBC, will slowing continue to increase diet. Appreciate ID recommendations for prophylaxic coverage at discharge with prolonged neutropenia. Concerning for no count recovery.
--- NOTE | 2020-05-16 15:36 | P.DS ---
Providers Date of admission: 05/05/20 06:47 Expected date of discharge: 05/16/20 Attending physician: Katelynn Holbrook Consults: 05/05/20 06:48 Consult Physician Urgent Consulting Provider: Edwin Rees Consult Reason/Comments: Febrile neutropenia. Pancytopenia. AML patient Do you want consulting provider notified?: Already Contacted 05/07/20 09:06 Consult Physician Routine Consulting Provider: Jad Mathur Consult Reason/Comments: febrile Neutopenia Do you want consulting provider notified?: Yes Primary care physician: Fady Lemus [facility] Course: Final diagnosis -Severe Sepsis, febrile neutropenia: Secondary to most probably diverticulitis -Acute myeloblastic leukemia -Pancytopenia -Hypovolemic hyponatremia -Mild hypokalemia, improved -Hypertension -Hyperlipidemia -Depression -DVT prophylaxis -GI prophylaxis Discharge disposition Patient is being discharged in a stable condition with guarded prognosis to home. Patient will follow-up with Dr. Lemus in the outpatient setting upon discharge. Patient will follow-up in Dr. Rees's office in the morning. Patient to continue with oral antibiotics in the form of Cipro 500 mg BID for the next one week. Total time taken is greater than 35 minutes. Hospital course This is a 69-year-old male who was recently admitted acute metaplastic leukemia who presented to the ER with sepsis and neutropenic fever secondary to diverticulitis and was being closely monitored. Patient was seen and evaluated and followed closely with oncology as he follows outpatient as he has been undergoing recent chemotherapy along with infectious disease. Patient was placed on IV antibiotics in the form of cefepime and Flagyl and maintained during hospitalization. Patient will continue with oral Cipro for the next one week to complete the course. Patient continued to have frequent episodes of diarrhea although has improved with Questran and will continue with this. Patient is to continue with clear liquids to full liquid diet until follow-up with oncology and repeat labs are drawn to monitor for ANC over 500. Patient also follows with Daniel and states he is supposed to be receiving a port soon for continued therapy. Patient's platelets today are 14, hemoglobin is 7.7, white blood count is 0.8. Currently no reports of chest pain, shortness of breath, or palpitations. Patient is afebrile. No reports of nausea or vomiting and patient is tolerating diet. Patient will be discharged home today. On exam vital signs are stable. Temp is 98.3F, pulse is 67, respirations are 17, blood pressure is 129/67, oxygen saturation is 97% on room air. Cardio S1, S2 are muffled. Respiratory system shows diminished breath sounds at the bases with no wheezing or rhonchi noted. Abdomen is soft and nontender. Nervous system shows no focal deficits. Please refer to medication reconciliation sheet for a list of medications. Patient Condition at Discharge: Stable Plan - Discharge Summary Discharge Rx Participant: Yes New Discharge Prescriptions: New Nystatin 100,000 Unit/ml Susp [Mycostatin Oral Susp] 3,000,000 unit PO TID #120 ml Famotidine [Pepcid] 20 mg PO BID 30 Days #60 tab Cholestyramine (with Sugar) [Questran Packet] 4 gm PO BID@1000,1800 #30 packet Continue Ciprofloxacin HCl [Cipro] 500 mg PO Q12HR #14 tab No Action hydrOXYzine pamoate [Vistaril] 50 mg PO TID clonazePAM [KlonoPIN] 1 mg PO BID FLUoxetine HCL [PROzac] 40 mg PO QAM Acetaminophen Tab [Tylenol] 650 mg PO Q4H PRN PRN Reason: Pain Or Fever > 100.5 Fluconazole [Diflucan] 100 mg PO DAILY Acyclovir 400 mg PO BID Discharge Medication List FLUoxetine HCL [PROzac] 40 mg PO QAM 01/09/20 [History] clonazePAM [KlonoPIN] 1 mg PO BID 01/09/20 [History] hydrOXYzine pamoate [Vistaril] 50 mg PO TID 01/09/20 [History] Acetaminophen Tab [Tylenol] 650 mg PO Q4H PRN 05/05/20 [History] Acyclovir 400 mg PO BID 05/05/20 [History] Fluconazole [Diflucan] 100 mg PO DAILY 05/05/20 [History] Ciprofloxacin HCl [Cipro] 500 mg PO Q12HR #14 tab 05/15/20 [Rx] Cholestyramine (with Sugar) [Questran Packet] 4 gm PO BID@1000,1800 #30 packet 05/16/20 [Rx] Famotidine [Pepcid] 20 mg PO BID 30 Days #60 tab 05/16/20 [Rx] Nystatin 100,000 Unit/ml Susp [Mycostatin Oral Susp] 3,000,000 unit PO TID #120 ml 05/16/20 [Rx] Follow up Appointment(s)/Referral(s): Edwin Rees MD [STAFF PHYSICIAN] - 05/17/20 3:00 pm () Fady Lemus DO [Primary Care Provider] - 1-2 days Ambulatory/Diagnostic Orders: Complete Blood Count w/diff [LAB.AMB] Time Frame: 2 Days, Location: None Selected Patient Instructions/Handouts: Ciprofloxacin (By mouth), Famotidine (By mouth), Cholestyramine (By mouth), Nystatin (By mouth), Neutropenia (DC), Fall Prevention (DC) Activity/Diet/Wound Care/Special Instructions: Activity Limited until follow-up Follow-up with primary care provider Continue with full liquid diet and discuss with advancing diet with oncology Continue with antibiotics for the next one week Follow-up with oncology in the outpatient setting CBC (bloodwork) to be completed in with Dr. Wiley office. Discharge Disposition: HOME SELF-CARE
== END 2020-05-16 17:07 | disposition home or self-care (01) | DRG 871 ==
LOC: EC 02:29 → 4SSUR 06:47 → 3SCARD 09:23 → 5NMEDONC 05-08 18:45
PROVIDERS: ADMIT Internal Medicine; ATTEND Internal Medicine
PROC: 30233R1 Transfusion of Nonautologous Platelets into Peripheral Vein, Percutaneous Approach (ICD-10-PCS; principal; 2020-05-05)
PROC: 30233N1 Transfusion of Nonautologous Red Blood Cells into Peripheral Vein, Percutaneous Approach (ICD-10-PCS; principal; 2020-05-05)
DX: A41.9 Sepsis, unspecified organism (principal); D61.810 Antineoplastic chemotherapy induced pancytopenia; C92.00 Acute myeloblastic leukemia, not having achieved remission; K57.32 Diverticulitis of large intestine without perforation or abscess without bleeding; E87.1 Hypo-osmolality and hyponatremia; K52.1 Toxic gastroenteritis and colitis; K52.89 Other specified noninfective gastroenteritis and colitis; T50.2X5A Adverse effect of carbonic-anhydrase inhibitors, benzothiadiazides and other diuretics, initial encounter; Z20.822 Contact with and (suspected) exposure to COVID-19; I10 Essential (primary) hypertension; E78.5 Hyperlipidemia, unspecified; D70.1 Agranulocytosis secondary to cancer chemotherapy; F32.9 Major depressive disorder, single episode, unspecified; F41.9 Anxiety disorder, unspecified; T45.1X5A Adverse effect of antineoplastic and immunosuppressive drugs, initial encounter; R50.81 Fever presenting with conditions classified elsewhere; R65.20 Severe sepsis without septic shock; E86.1 Hypovolemia; K12.31 Oral mucositis (ulcerative) due to antineoplastic therapy; E87.6 Hypokalemia; Z79.899 Other long term (current) drug therapy; Z86.73 Personal history of transient ischemic attack (TIA), and cerebral infarction without residual deficits; Z87.891 Personal history of nicotine dependence; Z98.890 Other specified postprocedural states; Z86.19 Personal history of other infectious and parasitic diseases
CPT/HCPCS: 36415; 36430; 71046; 74176; 80048; 80053; 81001; 83605; 83735; 84100; 84132; 85025; 85027; 85384; 85610; 85730; 86850; 86900; 86901; 86920; 87040; 87045; 87046; 87502; 87635; 96365; 96366; 99285

== ENCOUNTER 2020-12-21 21:15 | Inpatient (IN) | payer MEDICARE, OTHER ==
[2020-12-21] MEDS ORDERED: SODIUM CHLORIDE 0.9% 1,000 ML IV STA (22:12)
--- NOTE | 2020-12-21 23:04 | ED ---
Altered Mental Status HPI - General Chief Complaint: Altered Mental Status Stated Complaint: low platelets Time Seen by Provider: 12/21/20 21:25 Source: patient, EMS, RN notes reviewed, old records reviewed Mode of arrival: EMS Limitations: no limitations - History of Present Illness Initial Comments: This is a 70-year-old male to the ER for evaluation patient comes to ER today for evaluation of abnormal lab values, possible altered mental status patient denies being altered currently appears to be alert and speaking appropriately. Patient states he feels weak but overall just wants to be discharged wants to go back home states she does not feel like he needs to be in the hospital currently this is at the hospital earlier today otherwise patient is without headache chest pain shortness of breath or abdominal pain nausea vomiting or diarrhea. MD Complaint: altered mental status (Patient does not appear to be currently altered), other (Abnormal lab values) -: unknown Severity: mild Consistency of Symptoms: waxing and waning Context: history of similar presentation, cancer Associated Symptoms: denies other symptoms - Related Data Home Medications Medication Instructions Recorded Confirmed FLUoxetine HCL [PROzac] 40 mg PO QAM 01/09/20 05/19/20 clonazePAM [KlonoPIN] 1 mg PO BID 01/09/20 05/19/20 hydrOXYzine pamoate [Vistaril] 50 mg PO TID 01/09/20 05/19/20 Acetaminophen Tab [Tylenol] 650 mg PO Q4H PRN 05/05/20 05/19/20 Acyclovir 400 mg PO BID 05/05/20 05/19/20 Fluconazole [Diflucan] 100 mg PO DAILY 05/05/20 05/19/20 Previous Rx's Medication Instructions Recorded Ciprofloxacin HCl [Cipro] 500 mg PO Q12HR #14 tab 05/15/20 Cholestyramine (with Sugar) 4 gm PO BID@1000,1800 #30 packet 05/16/20 [Questran Packet] Famotidine [Pepcid] 20 mg PO BID 30 Days #60 tab 05/16/20 Nystatin 100,000 Unit/ml Susp 3,000,000 unit PO TID #120 ml 05/16/20 [Mycostatin Oral Susp] Allergies Allergy/AdvReac Type Severity Reaction Status Date / Time No Known Allergies Allergy Verified 05/19/20 07:04 Review of Systems ROS Statement: Those systems with pertinent positive or pertinent negative responses have been documented in the HPI. ROS Other: All systems not noted in ROS Statement are negative. Past Medical History Past Medical History: Cancer, CVA/TIA, Hyperlipidemia, Hypertension Additional Past Medical History / Comment(s): Left-sided spontaneous pneuomthorax; hemorrhagic stroke; left carotid stenosis 50%, Leukemia, History of Any Multi-Drug Resistant Organisms: None Reported Past Surgical History: Orthopedic Surgery Additional Past Surgical History / Comment(s): ACL replacement, PICC Past Anesthesia/Blood Transfusion Reactions: No Reported Reaction Past Psychological History: Anxiety, Depression Smoking Status: Former smoker Past Alcohol Use History: None Reported Past Drug Use History: None Reported - Past Family History Father Family Medical History: Unable to Obtain Additional Family Medical History / Comment(s): Unable to attain family medical history as patient was adopted General Exam General appearance: alert, in no apparent distress Head exam: Present: atraumatic, normocephalic, normal inspection Eye exam: Present: normal appearance, PERRL, EOMI. Absent: scleral icterus, conjunctival injection, periorbital swelling ENT exam: Present: normal exam, mucous membranes moist Neck exam: Present: normal inspection. Absent: tenderness, meningismus, lymphadenopathy Respiratory exam: Present: normal lung sounds bilaterally. Absent: respiratory distress, wheezes, rales, rhonchi, stridor Cardiovascular Exam: Present: regular rate, normal rhythm, normal heart sounds. Absent: systolic murmur, diastolic murmur, rubs, gallop, clicks GI/Abdominal exam: Present: soft, normal bowel sounds. Absent: distended, te nderness, guarding, rebound, rigid Extremities exam: Present: normal inspection, full ROM, normal capillary refill. Absent: tenderness, pedal edema, joint swelling, calf tenderness Back exam: Present: normal inspection Neurological exam: Present: alert, oriented X3, CN II-XII intact Psychiatric exam: Present: normal affect, normal mood Skin exam: Present: warm, dry, intact, normal color. Absent: rash Course Vital Signs 12/21/20 12/21/20 12/21/20 21:19 21:29 23:00 Temperature 99.4 F Pulse Rate 96 110 H Respiratory 20 20 Rate Blood Pressure 100/67 95/70 O2 Sat by Pulse 97 99 Oximetry 12/22/20 12/22/20 12/22/20 00:00 01:00 02:07 Temperature Pulse Rate 103 H 104 H 100 Respiratory 16 18 18 Rate Blood Pressure 95/70 105/75 99/67 O2 Sat by Pulse 97 98 98 Oximetry - Reevaluation(s) Reevaluation #1: 12/22/20 00:48 Medical record is reviewed Reevaluation #2: 12/22/20 03:04 Patient informed results and questions have been answered Reevaluation #3: 12/22/20 03:04 patient continues to feel improved Medical Decision Making - Medical Decision Making 70 male to be admitted for evaluation of continuing leg falling platelet levels. No current active bleeding patient is weak with some mental status that is improving with hydration. - Lab Data Result diagrams: 12/22/20 00:23 12/22/20 00:23 Lab Results 12/22/20 12/22/20 12/22/20 Range/Units 00:23 00:23 00:23 WBC 13.6 H (3.8-10.6) k/uL RBC 2.81 L (4.30-5.90) m/uL Hgb 10.2 L (13.0-17.5) gm/dL Hct 30.6 L (39.0-53.0) % MCV 109.1 H (80.0-100.0) fL MCH 36.3 H (25.0-35.0) pg MCHC 33.3 (31.0-37.0) g/dL RDW 20.5 H (11.5-15.5) % MPV 8.6 Anisocytosis Moderate Macrocytosis Marked A PT 12.3 H (9.0-12.0) sec INR 1.2 H (<1.2) APTT 35.8 H (22.0-30.0) sec Sodium 130 L (137-145) mmol/L Potassium 3.7 (3.5-5.1) mmol/L Chloride 103 (98-107) mmol/L Carbon Dioxide 23 (22-30) mmol/L Anion Gap 4 mmol/L BUN 23 H (9-20) mg/dL Creatinine 0.53 L (0.66-1.25) mg/dL Est GFR (CKD-EPI)AfAm >90 (>60 ml/min/1.73 sqM) Est GFR (CKD-EPI)NonAf >90 (>60 ml/min/1.73 sqM) Glucose 82 (74-99) mg/dL Calcium 7.6 L (8.4-10.2) mg/dL Total Bilirubin 0.5 (0.2-1.3) mg/dL AST 121 H (17-59) U/L ALT 64 H (4-49) U/L Alkaline Phosphatase 233 H (38-126) U/L Ammonia (<30) umol/L Troponin I (0.000-0.034) ng/mL Total Protein 6.1 L (6.3-8.2) g/dL Albumin 2.1 L (3.5-5.0) g/dL Lipase (23-300) U/L Urine Color Urine Appearance (Clear) Urine pH (5.0-8.0) Ur Specific [place] (1.001-1.035) Urine Protein (Negative) Urine Glucose (UA) (Negative) Urine Ketones (Negative) Urine Blood (Negative) Urine Nitrite (Negative) Urine Bilirubin (Negative) Urine Urobilinogen (<2.0) mg/dL Ur Leukocyte Esterase (Negative) Urine RBC (0-5) /hpf Urine WBC (0-5) /hpf Ur Squamous Epith Cells (0-4) /hpf Urine Bacteria (None) /hpf Hyaline Casts (0-2) /lpf Urine Mucus (None) /hpf Urine Opiates Screen (NotDetected) Ur Oxycodone Screen (NotDetected) Urine Methadone Screen (NotDetected) Ur Propoxyphene Screen (NotDetected) Ur Barbiturates Screen (NotDetected) U Tricyclic Antidepress (NotDetected) Ur Phencyclidine Scrn (NotDetected) Ur Amphetamines Screen (NotDetected) U Methamphetamines Scrn (NotDetected) U Benzodiazepines Scrn (NotDetected) Urine Cocaine Screen (NotDetected) U Marijuana (THC) Screen (NotDetected) 12/22/20 12/22/20 12/22/20 Range/Units 00:23 00:23 00:30 WBC (3.8-10.6) k/uL RBC (4.30-5.90) m/uL Hgb (13.0-17.5) gm/dL Hct (39.0-53.0) % MCV (80.0-100.0) fL MCH (25.0-35.0) pg MCHC (31.0-37.0) g/dL RDW (11.5-15.5) % MPV Anisocytosis Macrocytosis PT (9.0-12.0) sec INR (<1.2) APTT (22.0-30.0) sec Sodium (137-145) mmol/L Potassium (3.5-5.1) mmol/L Chloride (98-107) mmol/L Carbon Dioxide (22-30) mmol/L Anion Gap mmol/L BUN (9-20) mg/dL Creatinine (0.66-1.25) mg/dL Est GFR (CKD-EPI)AfAm (>60 ml/min/1.73 sqM) Est GFR (CKD-EPI)NonAf (>60 ml/min/1.73 sqM) Glucose (74-99) mg/dL Calcium (8.4-10.2) mg/dL Total Bilirubin (0.2-1.3) mg/dL AST (17-59) U/L ALT (4-49) U/L Alkaline Phosphatase (38-126) U/L Ammonia 12 (<30) umol/L Troponin I <0.012 (0.000-0.034) ng/mL Total Protein (6.3-8.2) g/dL Albumin (3.5-5.0) g/dL Lipase (23-300) U/L Urine Color Yellow Urine Appearance Clear (Clear) Urine pH 6.0 (5.0-8.0) Ur Specific [place] 1.025 (1.001-1.035) Urine Protein 1+ H (Negative) Urine Glucose (UA) Negative (Negative) Urine Ketones Negative (Negative) Urine Blood Small H (Negative) Urine Nitrite Negative (Negative) Urine Bilirubin Negative (Negative) Urine Urobilinogen <2.0 (<2.0) mg/dL Ur Leukocyte Esterase Negative (Negative) Urine RBC 32 H (0-5) /hpf Urine WBC 2 (0-5) /hpf Ur Squamous Epith Cells 1 (0-4) /hpf Urine Bacteria Rare H (None) /hpf Hyaline Casts 6 H (0-2) /lpf Urine Mucus Moderate H (None) /hpf Urine Opiates Screen Not Detected (NotDetected) Ur Oxycodone Screen Not Detected (NotDetected) Urine Methadone Screen Not Detected (NotDetected) Ur Propoxyphene Screen Not Detected (NotDetected) Ur Barbiturates Screen Not Detected (NotDetected) U Tricyclic Antidepress Not Detected (NotDetected) Ur Phencyclidine Scrn Not Detected (NotDetected) Ur Amphetamines Screen Not Detected (NotDetected) U Methamphetamines Scrn Not Detected (NotDetected) U Benzodiazepines Scrn Detected H (NotDetected) Urine Cocaine Screen Not Detected (NotDetected) U Marijuana (THC) Screen Not Detected (NotDetected) 12/22/20 Range/Units 01:21 WBC (3.8-10.6) k/uL RBC (4.30-5.90) m/uL Hgb (13.0-17.5) gm/dL Hct (39.0-53.0) % MCV (80.0-100.0) fL MCH (25.0-35.0) pg MCHC (31.0-37.0) g/dL RDW (11.5-15.5) % MPV Anisocytosis Macrocytosis PT (9.0-12.0) sec INR (<1.2) APTT (22.0-30.0) sec Sodium (137-145) mmol/L Potassium (3.5-5.1) mmol/L Chloride (98-107) mmol/L Carbon Dioxide (22-30) mmol/L Anion Gap mmol/L BUN (9-20) mg/dL Creatinine (0.66-1.25) mg/dL Est GFR (CKD-EPI)AfAm (>60 ml/min/1.73 sqM) Est GFR (CKD-EPI)NonAf (>60 ml/min/1.73 sqM) Glucose (74-99) mg/dL Calcium (8.4-10.2) mg/dL Total Bilirubin (0.2-1.3) mg/dL AST (17-59) U/L ALT (4-49) U/L Alkaline Phosphatase (38-126) U/L Ammonia (<30) umol/L Troponin I (0.000-0.034) ng/mL Total Protein (6.3-8.2) g/dL Albumin (3.5-5.0) g/dL Lipase <10 L (23-300) U/L Urine Color Urine Appearance (Clear) Urine pH (5.0-8.0) Ur Specific [place] (1.001-1.035) Urine Protein (Negative) Urine Glucose (UA) (Negative) Urine Ketones (Negative) Urine Blood (Negative) Urine Nitrite (Negative) Urine Bilirubin (Negative) Urine Urobilinogen (<2.0) mg/dL Ur Leukocyte Esterase (Negative) Urine RBC (0-5) /hpf Urine WBC (0-5) /hpf Ur Squamous Epith Cells (0-4) /hpf Urine Bacteria (None) /hpf Hyaline Casts (0-2) /lpf Urine Mucus (None) /hpf Urine Opiates Screen (NotDetected) Ur Oxycodone Screen (NotDetected) Urine Methadone Screen (NotDetected) Ur Propoxyphene Screen (NotDetected) Ur Barbiturates Screen (NotDetected) U Tricyclic Antidepress (NotDetected) Ur Phencyclidine Scrn (NotDetected) Ur Amphetamines Screen (NotDetected) U Methamphetamines Scrn (NotDetected) U Benzodiazepines Scrn (NotDetected) Urine Cocaine Screen (NotDetected) U Marijuana (THC) Screen (NotDetected) - EKG Data -: EKG Interpreted by Me (EKG shows sinus tachycardia 108 MO 182 QRS 78 QTc 426) Disposition Clinical Impression: Altered mental status, Thrombocytopenia, Transaminitis, Weakness Disposition: ADMITTED IP TO THIS [facility] Condition: Fair Is patient prescribed a controlled substance at d/c from ED?: No Referrals: Fady Lemus DO [Primary Care Provider] - 1-2 days
[2020-12-22 00:54] LABS: ALT 64 U/L (4-49); AST 121 U/L (17-59); African American GFR (CKD) >90 (>60 ml/min/1.73 sqM); Albumin 2.1 g/dL (3.5-5.0); Alkaline Phosphatase 233 U/L (38-126); Anion Gap 4 mmol/L; Blood Urea Nitrogen 23 mg/dL (9-20); Calcium 7.6 mg/dL (8.4-10.2); Carbon Dioxide 23 mmol/L (22-30); Chloride 103 mmol/L (98-107); Glucose 82 mg/dL (74-99); Non-African American GFR(CKD) >90 (>60 ml/min/1.73 sqM); Potassium 3.7 mmol/L (3.5-5.1); Sodium 130 mmol/L (137-145); Total Bilirubin 0.5 mg/dL (0.2-1.3); Total Protein 6.1 g/dL (6.3-8.2)
[2020-12-22 00:58] LABS: INR 1.2 (<1.2); Partial Thromboplastin Time 35.8 sec (22.0-30.0); Prothrombin Time 12.3 sec (9.0-12.0)
[2020-12-22 01:03] LABS: Appearance,Urine Clear (Clear); Bacteria,Urine Rare /hpf; Bilirubin,Urine Negative (Negative); Blood,Urine Small (Negative); Color,Urine Yellow; Glucose,Urine (UA) Negative (Negative); Hyaline Casts,Urine 6 /lpf (0-2); Ketones,Urine Negative (Negative); Leukocyte Esterase,Urine Negative (Negative); Mucus,Urine Moderate /hpf; Nitrite,Urine Negative (Negative); Protein,Urine 1+ (Negative); RBC,Urine 32 /hpf (0-5); Specific Gravity,Urine 1.025 (1.001-1.035); Squamous Epithelial Cell,Urine 1 /hpf (0-4); Urobilinogen,Urine <2.0 mg/dL (<2.0); WBC,Urine 2 /hpf (0-5)
[2020-12-22 01:24] LABS: Amphetamine Screen,Urine Not Detected (NotDetected); Barbiturate Screen,Urine Not Detected (NotDetected); Benzodiazepines Screen,Urine Detected (NotDetected); Cocaine Screen,Urine Not Detected (NotDetected); Methadone Screen, Urine Not Detected (NotDetected); Opiate Screen,Urine Not Detected (NotDetected); Oxycodone Screen, Urine Not Detected (NotDetected); Phencyclidine Screen,Urine Not Detected (NotDetected); Tricyclic Antidepressant,Urine Not Detected (NotDetected); Urn Cannabinoid Scrn Not Detected (NotDetected)
[2020-12-22 01:25] LABS: Anisocytosis Moderate; HCT 30.6 % (39.0-53.0); HGB 10.2 gm/dL (13.0-17.5); MCH 36.3 pg (25.0-35.0); MCHC 33.3 g/dL (31.0-37.0); MCV 109.1 fL (80.0-100.0); Macrocytosis Marked; Mean Platelet Volume 8.6; RBC 2.81 m/uL (4.30-5.90); RDW 20.5 % (11.5-15.5); WBC 13.6 k/uL (3.8-10.6)
[2020-12-22] MEDS ORDERED: NALOXONE 0.4 MG/ML 1 ML VIAL IV PRN (02:59)
[2020-12-22] MEDS ORDERED: ONDANSETRON 4 MG/2 ML VIAL IVP PRN (02:59)
[2020-12-22] MEDS: SODIUM CHLORIDE 0.9% 1,000 ML IV SCH ×2 (03:05→22:38)
[2020-12-22 04:31] LABS: Band Neutrophils % 6 %; Lymphocytes # (M) 8.16 k/uL (1.0-4.8); Metamyelocytes # (M) 0.14 k/uL (0); Metamyelocytes % 1 %; Monocytes # (M) 1.22 k/uL (0-1.0); Neutrophils % (M) 26 %; Nucleated Red Blood Cells 0 /100 WBC (0-0); Total Cells Counted 200
[2020-12-22 04:33] LABS: Platelet Count 11 k/uL (150-450)
[2020-12-22 04:34] LABS: Polychromasia Present
[2020-12-22 04:35] LABS: Poikilocytosis (M) Present
[2020-12-22] MEDS ORDERED: ZINC OXIDE 20% OINT 28.4 GM TUBE TOPICAL PRN (12:42)
[2020-12-22] MEDS ORDERED: [UNRECOGNIZED DRUG - OTHER] PEG/G-TUBE SCH (16:00)
--- NOTE | 2020-12-22 16:26 | P.CONS ---
History of Present Illness - Reason for Consult Consult date: 12/22/20 Leukemia Requesting physician: Ken Carroll - Chief Complaint Sepsis - Thrombocytopenia - History of Present Illness Mr Chand is a pleasant white male, initially seen in consult at [facility] on 01/13/20. It come into the hospital complaining of fever, chills, with cough and chest discomfort. The patient was less than 101. Cardiac ischemia was rule out. He had a CTA of the chest that was negative for PE, or dissection but did show some abnormal mediastinal density. The patient was seen back in the thoracic surgery indicated that these findings were nonspecific and did not recommend further workup. He was also placed on antibiotics by ID with resolution of symptoms. CBC on admission showed 6% blasts with other indices essentially normal. As this finding persisted patient had additional labs done, that were negative. He then underwent a bone marrow aspiration biopsy on 01/19/20. 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 Flow cytometry actually showed about 40% blasts. 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 AML fish was negative. 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 He was referred to the [facility] and seen by Dr Kowalski. Case was d/w him. Induction chemo with Vyxeos was recommended. The patient completed induction on 02/25/20. He was subsequently admitted with febrile neutropenia, and had hospitaliz ation for several days with blood product support, antibiotics, as well as need for bowel rest transiently because of clinical neutropenic colitis. He did improve and was able to be discharged but was then readmitted again with severe sepsis. This time blood cultures are positive for Pseudomonas. He also developed severe diarrhea which was slow to resolve. The patient did improve with aggressive supportive care, and was able to be discharged on 03/21/20. At the time of discharge, blood counts were showing signs of recovery. he had follow-up bone marrow done on 03/28/20. This showed between 2-3% residual aberrant blasts he was seen back at the [facility], and allo BMT was planned. This was delayed because of exposure of his potential donor, his daughter, to COVID. therefore a cycle of consolidation Vyxeos was recommended. He had that from 04/26-04/28/20 the patient was then readmitted with febrile neutropenia and pancytopenia on 05/05/20. Cultures remained negative. Initial exam was suggestive of neutropenic colitis. The patient was treated with diet restriction, and broad-spectrum antibiotics. he required multiple PRBC and platelet transfusions. He was discharged on 05/16/20 on oral antibiotics. Pancytopenia was still persistent at time of discharge. He denied any f/c/n/v/LAD. His appetite and energy level are diminished, but improving. Diarrhea has improved.. No unusual bleeding or bruising. Review of systems otherwise as per HPI and negative out of 10 the patient is symptomatically improved since his discharge. CBC today shows hemoglobin of 8.8, WBC 1.07 with 97% monocytes. Platelets were 10.7. - Continue by mouth antibiotics and continue to monitor for signs of recurrent fever -Transfuse 1 unit irradiated platelet - Patient has been given a schedule for his allogeneic BMT. He is to have a visit, and bone marrow aspiration biopsy at [facility] on 05/19/20. he will have his IV access placed on 05/24/20, and will be admitted for the transplant on 05/29/20. Check CBC on 06/02/20 with transfusion as needed. He is currently on full liquids and is tolerating it well. Advance diet once ANC is satisfactory. Over the past few months patient has declined and struggled with prolong hospitalizations related to spepsis, severe thromboocytopenia. His platelets are 11K today. Spoke to Dr. Sabillon primary oncologist and in [place] had high levels of tacrolimus. He was treated in [facility] rehab after this prolonged hospitalization and now presents with thrombocytopenia and concern of recurrent infection. Review of Systems lethargic, wakes to answer All systems: negative Past Medical History Past Medical History: Cancer, CVA/TIA, Hyperlipidemia, Hypertension Additional Past Medical History / Comment(s): Left-sided spontaneous pneuomthorax; hemorrhagic stroke; left carotid stenosis 50%, Leukemia, History of Any Multi-Drug Resistant Organisms: None Reported Past Surgical History: Orthopedic Surgery Additional Past Surgical History / Comment(s): ACL replacement, PICC Past Anesthesia/Blood Transfusion Reactions: No Reported Reaction Past Psychological History: Anxiety, Depression Smoking Status: Former smoker Past Alcohol Use History: None Reported Past Drug Use History: None Reported - Past Family History Father Family Medical History: Unable to Obtain Additional Family Medical History / Comment(s): Unable to attain family medical history as patient was adopted Medications and Allergies Home Medications Medication Instructions Recorded Confirmed Type Acyclovir [Zovirax] 800 mg PEG/G-TUBE BID@0800,199912/22/20 12/22/20 History Dermseptin 1 applic TOPICAL DAILY PRN 12/22/20 12/22/20 History Dermseptin 1 applic TOPICAL HS 12/22/20 12/22/20 History FLUoxetine HCL [PROzac] 60 mg PEG/G-TUBE DAILY@79912/22/20 12/22/20 History Mirtazapine [Remeron] 15 mg PEG/G-TUBE HS@199912/22/20 12/22/20 History Nutritional Juice 1 can PEG/G-TUBE BID@1200,1600 12/22/20 12/22/20 History Omeprazole [PriLOSEC] 20 mg PEG/G-TUBE DAILY@79912/22/20 12/22/20 History Thiamine [Vitamin B-1] 100 mg PEG/G-TUBE DAILY@79912/22/20 12/22/20 History clonazePAM [KlonoPIN] 0.5 mg PEG/G-TUBE DAILY@79912/22/20 12/22/20 History ursodioL [Ursodiol] 300 mg PEG/G-TUBE BID@08,199912/22/20 12/22/20 History Allergies Allergy/AdvReac Type Severity Reaction Status Date / Time No Known Allergies Allergy Verified 12/22/20 07:42 Physical Exam Vitals: Vital Signs Temp Pulse Resp BP Pulse Ox 12/22/20 08:19 108 H 16 98 12/22/20 07:42 101 H 16 101/66 18 L 12/22/20 06:31 105 H 18 104/70 99 12/22/20 02:07 100 18 99/67 98 12/22/20 01:00 104 H 18 105/75 98 12/22/20 00:00 103 H 16 95/70 97 12/21/20 23:00 95/70 12/21/20 21:29 110 H 20 99 12/21/20 21:19 99.4 F 96 20 100/67 97 Intake and Output 12/21/20 12/22/20 12/22/20 22:59 06:59 14:59 Other: Weight 54.431 kg - Constitutional General appearance: cooperative, mild distress - EENT Eyes: EOMI ENT: hard of hearing, NA/AT - Neck Neck: normal ROM - Respiratory Respiratory: bilateral: diminished - Cardiovascular Rhythm: regularly irregular - Gastrointestinal General gastrointestinal: tenderness - Integumentary Integumentary: pale - Neurologic unable - Musculoskeletal Musculoskeletal: generalized weakness - Psychiatric lethargic Psychiatric: A&O x's 3 Results CBC & Chem 7: 12/22/20 00:23 12/22/20 00:23 Labs: Abnormal Lab Results - Last 24 Hours (Table) 12/22/20 12/22/20 12/22/20 Range/Units 00:23 00:23 00:23 WBC 13.6 H (3.8-10.6) k/uL RBC 2.81 L (4.30-5.90) m/uL Hgb 10.2 L (13.0-17.5) gm/dL Hct 30.6 L (39.0-53.0) % MCV 109.1 H (80.0-100.0) fL MCH 36.3 H (25.0-35.0) pg RDW 20.5 H (11.5-15.5) % Plt Count 11 L* (150-450) k/uL Lymphocytes # (Manual) 8.16 H (1.0-4.8) k/uL Monocytes # (Manual) 1.22 H (0-1.0) k/uL Metamyelocytes # (Man) 0.14 H (0) k/uL Macrocytosis Marked A PT 12.3 H (9.0-12.0) sec INR 1.2 H (<1.2) APTT 35.8 H (22.0-30.0) sec Sodium 130 L (137-145) mmol/L BUN 23 H (9-20) mg/dL Creatinine 0.53 L (0.66-1.25) mg/dL Calcium 7.6 L (8.4-10.2) mg/dL AST 121 H (17-59) U/L ALT 64 H (4-49) U/L Alkaline Phosphatase 233 H (38-126) U/L Total Protein 6.1 L (6.3-8.2) g/dL Albumin 2.1 L (3.5-5.0) g/dL Lipase (23-300) U/L Urine Protein (Negative) Urine Blood (Negative) Urine RBC (0-5) /hpf Urine Bacteria (None) /hpf Hyaline Casts (0-2) /lpf Urine Mucus (None) /hpf U Benzodiazepines Scrn (NotDetected) 12/22/20 12/22/20 Range/Units 00:30 01:21 WBC (3.8-10.6) k/uL RBC (4.30-5.90) m/uL Hgb (13.0-17.5) gm/dL Hct (39.0-53.0) % MCV (80.0-100.0) fL MCH (25.0-35.0) pg RDW (11.5-15.5) % Plt Count (150-450) k/uL Lymphocytes # (Manual) (1.0-4.8) k/uL Monocytes # (Manual) (0-1.0) k/uL Metamyelocytes # (Man) (0) k/uL Macrocytosis PT (9.0-12.0) sec INR (<1.2) APTT (22.0-30.0) sec Sodium (137-145) mmol/L BUN (9-20) mg/dL Creatinine (0.66-1.25) mg/dL Calcium (8.4-10.2) mg/dL AST (17-59) U/L ALT (4-49) U/L Alkaline Phosphatase (38-126) U/L Total Protein (6.3-8.2) g/dL Albumin (3.5-5.0) g/dL Lipase <10 L (23-300) U/L Urine Protein 1+ H (Negative) Urine Blood Small H (Negative) Urine RBC 32 H (0-5) /hpf Urine Bacteria Rare H (None) /hpf Hyaline Casts 6 H (0-2) /lpf Urine Mucus Moderate H (None) /hpf U Benzodiazepines Scrn Detected H (NotDetected) Assessment and Plan (1) Thrombocytopenia Current Visit: Yes Status: Acute Code(s): D69.6 - THROMBOCYTOPENIA, UNSPECIFIED SNOMED Code(s): 532774256 (2) Acute myeloid leukemia Current Visit: No Status: Acute Priority: High Code(s): C92.00 - ACUTE MYELOBLASTIC LEUKEMIA, NOT HAVING ACHIEVED REMISSION SNOMED Code(s): 92196311 Plan: Discussed case in detail with treating oncologist Dr. Sabillon Recent prolonged hospitalization septsis, declining performance requiring ECF Goal at this time is to stabilize patient with supportive transfusions, assess for infectious etiology recurrence and hope to discarge to make appointment with Dr. Sabillon for bone marrow biopsy on next week. Orders placed for the same Physician attest: I have completed the full history and physical and agree with above dictation, dictated as a scribe.
[2020-12-22] MEDS: ZINC OXIDE 20% OINT 28.4 GM TUBE TOPICAL SCH (22:38)
[2020-12-22] MEDS: ursodioL 300 MG CAP PEG/G-TUBE SCH (22:38)
[2020-12-23] MEDS: SODIUM CHLORIDE 0.9% 1,000 ML IV SCH ×3 (07:18→17:44)
--- NOTE | 2020-12-23 07:41 | CT ---
EXAMINATION TYPE: CT brain wo con DATE OF EXAM: 12/23/2020 COMPARISON: 02/29/2020 HISTORY: No complaints at time of scan. Unwitnessed fall, rule out trauma. TECHNIQUE: CT scan of the head performed without contrast CT DLP: 1036 mGycm Automated exposure control for dose reduction was used. FINDINGS: No evidence for acute intracranial hemorrhage, midline shift or mass effect. The marshall-white matter di fferentiation is preserved. There is mild brain volume loss. There are patchy low attenuating areas in the periventricular region and deep white matter suggesting chronic microvascular ischemic changes. Relatively unchanged scatte red low attenuating lesions in the bilateral basal ganglia noted. There are atherosclerotic calcifications in the bilateral internal carotid arteries. No acute orbital, osseous or soft tissue abnormality. Partially seen paranasal sinuses demonstrate mild mucosal sinus disease/thickening. Mastoid air cells are without effusion. IMPRESSION: NO ACUTE INTRACRANIAL HEMORRHAGE, MIDLINE SHIFT OR MASS EFFECT. MILD PROGRESSION OF BRAIN VOLUME LOSS AND CHRONIC MICROVASCULAR ISCHEMIC CHANGES.
[2020-12-23 07:45] LABS: Anisocytosis Moderate; HCT 34.1 % (39.0-53.0); HGB 10.9 gm/dL (13.0-17.5); Hypochromasia Slight; MCH 36.3 pg (25.0-35.0); MCV 113.5 fL (80.0-100.0); Macrocytosis Marked; Mean Platelet Volume 9.5; RBC 3.01 m/uL (4.30-5.90); RDW 20.5 % (11.5-15.5); WBC 7.6 k/uL (3.8-10.6)
[2020-12-23] MEDS: THIAMINE 100 MG TAB PEG/G-TUBE SCH (08:39)
[2020-12-23] MEDS: ursodioL 300 MG CAP PEG/G-TUBE SCH ×2 (08:40→21:50)
[2020-12-23 08:41] LABS: Platelet Count 15 k/uL (150-450)
[2020-12-23] MEDS: FLUoxetine HCL 20 MG CAP PEG/G-TUBE SCH (08:41)
[2020-12-23] MEDS: PANTOPRAZOLE SODIUM 40 MG GRANULE PKT PEG/G-TUBE SCH (08:43)
--- NOTE | 2020-12-23 09:52 | P.HPIM ---
History of Present Illness H&P Date: 12/22/20 Chief Complaint: Altered mental status/low platelet count 70-year-old male, with past medical history of CVA/TIA, hypertension, hyperlipidemia, presents to the ER for evaluation patient comes to ER today for evaluation of abnormal lab values, possible altered mental status patient denies being altered currently appears to be alert and speaking appropriately. Patient states he feels weak but overall just wants to be discharged wants to go back home states she does not feel like he needs to be in the hospital currently this is at the hospital earlier today otherwise patient is without headache chest pain shortness of breath or abdominal pain nausea vomiting or diarrhea. Blood work completed EEG reveals a WBC of 13.6, hemoglobin 10.2 and platelet count of 11, sodium 1:30, potassium 3.7, BUN/creatinine of 23/0.53, PT/INR of 12.3/1.2; AST/ALT elevated at 121/64 Review of Systems REVIEW OF SYSTEMS: CONSTITUTIONAL: No fever, no malaise, no fatigue. HEENT: No recent visual problems or hearing problems. Denied any sore throat. CARDIOVASCULAR: No chest pain, orthopnea, PND, no palpitations, no syncope. PULMONARY: No shortness of breath, no cough, no hemoptysis. GASTROINTESTINAL: No diarrhea, no nausea, no vomiting, no abdominal pain. NEUROLOGICAL: No headaches, no weakness, no numbness. HEMATOLOGICAL: Denies any bleeding or petechiae. GENITOURINARY: Denies any burning micturition, frequency, or urgency. MUSCULOSKELETAL/RHEUMATOLOGICAL: Denies any joint pain, swelling, or any muscle pain. ENDOCRINE: Denies any polyuria or polydipsia. The rest of the 14-point review of systems is negative. Past Medical History Past Medical History: Cancer, CVA/TIA, Hyperlipidemia, Hypertension Additional Past Medical History / Comment(s): Left-sided spontaneous pneuomthorax; hemorrhagic stroke; left carotid stenosis 50%, Leukemia, History of Any Multi-Drug Resistant Organisms: None Reported Past Surgical History: Orthopedic Surgery Additional Past Surgical History / Comment(s): ACL replacement, PICC Past Anesthesia/Blood Transfusion Reactions: No Reported Reaction Past Psychological History: Anxiety, Depression Smoking Status: Former smoker Past Alcohol Use History: None Reported Past Drug Use History: None Reported - Past Family History Father Family Medical History: Unable to Obtain Additional Family Medical History / Comment(s): Unable to attain family medical history as patient was adopted Medications and Allergies Home Medications Medication Instructions Recorded Confirmed Type Acyclovir [Zovirax] 800 mg PEG/G-TUBE BID@0800,199912/22/20 12/22/20 History Dermseptin 1 applic TOPICAL DAILY PRN 12/22/20 12/22/20 History Dermseptin 1 applic TOPICAL HS 12/22/20 12/22/20 History FLUoxetine HCL [PROzac] 60 mg PEG/G-TUBE DAILY@0812/22/20 12/22/20 History Mirtazapine [Remeron] 15 mg PEG/G-TUBE HS@199912/22/20 12/22/20 History Nutritional Juice 1 can PEG/G-TUBE BID@1200,1600 12/22/20 12/22/20 History Omeprazole [PriLOSEC] 20 mg PEG/G-TUBE DAILY@79912/22/20 12/22/20 History Thiamine [Vitamin B-1] 100 mg PEG/G-TUBE DAILY@0812/22/20 12/22/20 History clonazePAM [KlonoPIN] 0.5 mg PEG/G-TUBE DAILY@0812/22/20 12/22/20 History ursodioL [Ursodiol] 300 mg PEG/G-TUBE BID@08,199912/22/20 12/22/20 History Allergies Allergy/AdvReac Type Severity Reaction Status Date / Time No Known Allergies Allergy Verified 12/22/20 07:42 Physical Exam Vitals: Vital Signs Temp Pulse Resp BP Pulse Ox 12/22/20 08:19 108 H 16 98 12/22/20 07:42 101 H 16 101/66 18 L 12/22/20 06:31 105 H 18 104/70 99 12/22/20 02:07 100 18 99/67 98 12/22/20 01:00 104 H 18 105/75 98 12/22/20 00:00 103 H 16 95/70 97 12/21/20 23:00 95/70 12/21/20 21:29 110 H 20 99 12/21/20 21:19 99.4 F 96 20 100/67 97 Intake and Output 12/21/20 12/22/20 12/22/20 22:59 06:59 14:59 Other: Weight 54.431 kg - Constitutional General appearance: Present: average body habitus, cooperative, no acute distres s - EENT Eyes: Present: anicteric sclerae, EOMI, PERRLA, normal appearance ENT: Present: hearing grossly normal, normal oropharynx Ears: bilateral: normal - Neck Neck: Present: normal ROM. Absent: lymphadenopathy, rigidity, thyromegaly Carotids: negative: bruit present Thyroid: bilateral: normal size, negative: enlarged, nodule - Respiratory Respiratory: bilateral: CTA, negative: rales, rhonchi, wheezing - Cardiovascular Rhythm: regular Heart sounds: normal: S1, S2 Abnormal Heart Sounds: Absent: systolic murmur, diastolic murmur - Gastrointestinal General gastrointestinal: Present: normal bowel sounds, soft. Absent: distended, organomegaly, tenderness - Genitourinary Genitourinary Comment(s): deferred - Integumentary Integumentary: Present: normal turgor. Absent: jaundiced, rash, ulcer - Neurologic Neurologic: Present: CNII-XII intact. Absent: focal deficits - Musculoskeletal Musculoskeletal: Present: gait normal, strength equal bilaterally - Psychiatric Psychiatric: Present: A&O x's 3, appropriate affect, intact judgment & insight Results CBC & Chem 7: 12/23/20 07:20 12/22/20 00:23 Labs: Abnormal Lab Results - Last 24 Hours (Table) 12/22/20 12/22/20 12/22/20 Range/Units 00:23 00:23 00:23 WBC 13.6 H (3.8-10.6) k/uL RBC 2.81 L (4.30-5.90) m/uL Hgb 10.2 L (13.0-17.5) gm/dL Hct 30.6 L (39.0-53.0) % MCV 109.1 H (80.0-100.0) fL MCH 36.3 H (25.0-35.0) pg RDW 20.5 H (11.5-15.5) % Plt Count 11 L* (150-450) k/uL Lymphocytes # (Manual) 8.16 H (1.0-4.8) k/uL Monocytes # (Manual) 1.22 H (0-1.0) k/uL Metamyelocytes # (Man) 0.14 H (0) k/uL Macrocytosis Marked A PT 12.3 H (9.0-12.0) sec INR 1.2 H (<1.2) APTT 35.8 H (22.0-30.0) sec Sodium 130 L (137-145) mmol/L BUN 23 H (9-20) mg/dL Creatinine 0.53 L (0.66-1.25) mg/dL Calcium 7.6 L (8.4-10.2) mg/dL AST 121 H (17-59) U/L ALT 64 H (4-49) U/L Alkaline Phosphatase 233 H (38-126) U/L Total Protein 6.1 L (6.3-8.2) g/dL Albumin 2.1 L (3.5-5.0) g/dL Lipase (23-300) U/L Urine Protein (Negative) Urine Blood (Negative) Urine RBC (0-5) /hpf Urine Bacteria (None) /hpf Hyaline Casts (0-2) /lpf Urine Mucus (None) /hpf U Benzodiazepines Scrn (NotDetected) 12/22/20 12/22/20 Range/Units 00:30 01:21 WBC (3.8-10.6) k/uL RBC (4.30-5.90) m/uL Hgb (13.0-17.5) gm/dL Hct (39.0-53.0) % MCV (80.0-100.0) fL MCH (25.0-35.0) pg RDW (11.5-15.5) % Plt Count (150-450) k/uL Lymphocytes # (Manual) (1.0-4.8) k/uL Monocytes # (Manual) (0-1.0) k/uL Metamyelocytes # (Man) (0) k/uL Macrocytosis PT (9.0-12.0) sec INR (<1.2) APTT (22.0-30.0) sec Sodium (137-145) mmol/L BUN (9-20) mg/dL Creatinine (0.66-1.25) mg/dL Calcium (8.4-10.2) mg/dL AST (17-59) U/L ALT (4-49) U/L Alkaline Phosphatase (38-126) U/L Total Protein (6.3-8.2) g/dL Albumin (3.5-5.0) g/dL Lipase <10 L (23-300) U/L Urine Protein 1+ H (Negative) Urine Blood Small H (Negative) Urine RBC 32 H (0-5) /hpf Urine Bacteria Rare H (None) /hpf Hyaline Casts 6 H (0-2) /lpf Urine Mucus Moderate H (None) /hpf U Benzodiazepines Scrn Detected H (NotDetected) Assessment and Plan Assessment: 1. Altered mental statusweakness - Patient is back at baseline and is awake and alert and oriented; we will continue to monitor closely with possible consult to neurology if indicated 2. Critical thrombocytopenia; monitor CBC closely; consult hematology/oncology 4. Transaminitis; etiology unclear; we will monitor liver enzymes closely with plans to order hepatic ultrasound if liver enzymes continue to trend up 5. Hypertension; patient not taking any antihypertensive medication; we will monitor blood pressure closely and make further recommendations as needed 6. Hyperlipidemia; not on any statin therapy at this time 7. TIA/CVA; currently not on aspirin or statin therapy 8. Acute myeloid leukemia; consult oncology 9. Depression/anxiety; continue with home dose of Remeron; we will plan to resume Klonopin if mental status remains stable DVT prophylaxis; SCDs CODE STATUS; full code
[2020-12-23 10:48] LABS: Reticulocyte % 1.6 % (0.5-2.0)
[2020-12-23 12:16] LABS: African American GFR (CKD) 119.7 (60.0-200.0); Albumin 2.3 g/dL (3.80-4.90); Albumin/Globulin Ratio 0.58 (1.60-3.17); Anion Gap 5.2 mmol/L (4.00-12.00); Calcium 7.7 mg/dL (8.7-10.3); Carbon Dioxide 23.8 mmol/L (21.6-31.8); Magnesium 1.7 mg/dL (1.5-2.4); Non-African American GFR(CKD) 103.3 (60.0-200.0); Potassium 3.8 mmol/L (3.5-5.5); Total Bilirubin 0.6 mg/dL (0.3-1.2); Total Protein 6.3 g/dL (6.2-8.2)
[2020-12-23 14:40] LABS: Band Neutrophils % 1 %; Lymphocytes # (M) 2.13 k/uL (1.0-4.8); Monocytes # (M) 0.91 k/uL (0-1.0); Neutrophils % (M) 59 %; Nucleated Red Blood Cells 0 /100 WBC (0-0); Total Cells Counted 100
[2020-12-23] MEDS: ZINC OXIDE 20% OINT 28.4 GM TUBE TOPICAL SCH (21:50)
[2020-12-23] MEDS ORDERED: QUEtiapine 25 MG TAB PO STA (21:54)
--- NOTE | 2020-12-23 23:04 | P.CONS ---
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 patient is status post chemo and has recently completed a bone marrow transplant at [facility] in this patient currently at local alf patient was sent to the ER at [facility] last night for evaluation of abnormal lab values and mental status changes apparently the patient was noticed to be less alert has been complaining of feeling weakness patient on presentation to the hospital did have low-grade fever of 99.4 degrees for night patient do not have any hypoxemia or need for supplemental oxygen patient did have a hemoglobin of 10.2 with a weight of 13.6 on admission that has subsequent normalized to 7.6 BUN/creatinine was mildly elevated liver exams were mildly elevated urine did not show any pyuria urine drug screen was positive for benzo did have a CT of the brain negative for any bleed patient has been sent to the hospital for further work-up ID was consulted because of his elevated white count admission, patient denies having any fever or chills denies having any headache no chest pain no shortness breath he did have occasional cough and is bringing up some sputum no hemoptysis no nausea no vomiting no abdominal pain no diarrhea Review of system: CONSTITUTIONAL: Positive for weakness however denies fever. EYES: No complaint. ENT: No complaint. RESPIRATORY: As per history of present illness CARDIOVASCULAR: No complaint. GENITOURINARY: No complaint. GASTROINTESTINAL: No complaint. MUSCULOSKELETAL: No complaint. INTEGUMENTARY: No complaint. PSYCHOLOGIC: No complaint. ENDOCRINE: No complaint. NEUROLOGIC: No complaint. Past medical history : Reviewed, documented below Past surgical history : Reviewed, documented below Social history: Reviewed, documented below Medications: Reviewed, as documented below EXAMINATION: Vital sigans= Reviewed and documented below GENERAL DESCRIPTION: Elderly male lying in bed, no distress. No tachypnea or accessory muscle of respiration use. HEENT: Shows Pallor , no scleral icterus. Oral mucous membrane is dry. NECK: Trachea central, no thyromegaly. LUNGS: Unlabored breathing. Decreased breath sound at the base. No wheeze or crackle. HEART: S1, S2, regular rate and rhythm. ABDOMEN: Soft, no tenderness , guarding or rigidity EXTREMITIES: No edema of feet. SKIN: No rash, no masses palpable. NEUROLOGICAL: The patient is awake, alert, oriented x3, mood and affect normal. LABS AND RADIOLOGY: Reviewed results see below Assessment : Patient with a history of acute myeloid leukemia in this patient status post chemotherapy and recently has completed a bone marrow transplant at [facility], patient did have a mild elevated white count on admission that has subsequent normalized patient currently do not have any fever and no obvious focus of infection however has been complaining of some cough and sputum production underlying pneumonia needs to be ruled out Plan: 1-we will obtain chest x-ray PA and lateral 2-check a sputum culture CRP and procalcitonin 3-hold on any systemic antibiotic therapy after the work-up is completed We will follow on clinical condition and cultures to further adjust medication if needed Thank you for this consultation we will follow the patient along with you Past Medical History Past Medical History: Cancer, CVA/TIA, Hyperlipidemia, Hypertension Additional Past Medical History / Comment(s): Left-sided spontaneous pneuomthorax; hemorrhagic stroke; left carotid stenosis 50%, Leukemia, History of Any Multi-Drug Resistant Organisms: None Reported Past Surgical History: Orthopedic Surgery Additional Past Surgical History / Comment(s): ACL replacement, PICC Past Anesthesia/Blood Transfusion Reactions: No Reported Reaction Past Psychological History: Anxiety, Depression Smoking Status: Former smoker Past Alcohol Use History: None Reported Past Drug Use History: None Reported - Past Family History Father Family Medical History: Unable to Obtain Additional Family Medical History / Comment(s): Unable to attain family medical history as patient was adopted Medications and Allergies Home Medications Medication Instructions Recorded Confirmed Type Acyclovir [Zovirax] 800 mg PEG/G-TUBE BID@0800,199912/22/20 12/22/20 History Dermseptin 1 applic TOPICAL DAILY PRN 12/22/20 12/22/20 History Dermseptin 1 applic TOPICAL HS 12/22/20 12/22/20 History FLUoxetine HCL [PROzac] 60 mg PEG/G-TUBE DAILY@0800 12/22/20 12/22/20 History Mirtazapine [Remeron] 15 mg PEG/G-TUBE HS@199912/22/20 12/22/20 History Nutritional Juice 1 can PEG/G-TUBE BID@1200,1600 12/22/20 12/22/20 History Omeprazole [PriLOSEC] 20 mg PEG/G-TUBE DAILY@0800 12/22/20 12/22/20 History Thiamine [Vitamin B-1] 100 mg PEG/G-TUBE DAILY@0800 12/22/20 12/22/20 History clonazePAM [KlonoPIN] 0.5 mg PEG/G-TUBE DAILY@0800 12/22/20 12/22/20 History ursodioL [Ursodiol] 300 mg PEG/G-TUBE BID@0800,199912/22/20 12/22/20 History Allergies Allergy/AdvReac Type Severity Reaction Status Date / Time No Known Allergies Allergy Verified 12/22/20 07:42 Physical Exam Vitals: Vital Signs Temp Pulse Resp BP Pulse Ox 12/23/20 20:58 99.0 F 102 H 16 102/65 97 12/23/20 13:03 98.1 F 98 18 97/68 100 12/23/20 08:00 103 H 16 12/23/20 05:00 99.3 F 103 H 16 107/66 97 Intake and Output 12/23/20 12/23/20 12/24/20 14:59 22:59 06:59 Intake Total 1920 Balance 1920 Intake: Intake, IV Titration 1300 Amount Sodium Chloride 0.9% 1, 1300 000 ml @ 130 mls/hr IV . Q7H42M [facility] Rx#:[id number] Oral 620 Other: Voiding Method Diaper # Voids 1 3 # Bowel Movements 1 Weight 54.431 kg Results CBC & Chem 7: 12/23/20 07:20 12/23/20 07:20 Labs: Abnormal Lab Results - Last 24 Hours (Table) 12/23/20 12/23/20 12/23/20 Range/Units 07:20 07:20 07:20 RBC 3.01 L (4.30-5.90) m/uL Hgb 10.9 L (13.0-17.5) gm/dL Hct 34.1 L (39.0-53.0) % MCV 113.5 H (80.0-100.0) fL MCH 36.3 H (25.0-35.0) pg RDW 20.5 H (11.5-15.5) % Plt Count 15 L* (150-450) k/uL Macrocytosis Marked A Fibrinogen 128 L (200-500) mg/dL D-Dimer 5.83 H (<0.60) mg/L FEU BUN/Creatinine Ratio 35.00 H (12.00-20.00) Ratio Calcium 7.7 L (8.7-10.3) mg/dL AST 190 H (14-35) U/L ALT 100 H (10-49) U/L Alkaline Phosphatase 285 H (41-126) U/L Albumin 2.30 L (3.80-4.90) g/dL Globulin 4.0 H (1.6-3.3) g/dL Albumin/Globulin Ratio 0.58 L (1.60-3.17) g/dL
[2020-12-24] MEDS: SODIUM CHLORIDE 0.9% 1,000 ML IV SCH ×4 (02:28→20:14)
[2020-12-24 06:25] LABS: Anisocytosis Moderate; HCT 30.9 % (39.0-53.0); MCH 36.1 pg (25.0-35.0); MCHC 32.5 g/dL (31.0-37.0); MCV 111.1 fL (80.0-100.0); Macrocytosis Marked; Mean Platelet Volume 10.8; RBC 2.78 m/uL (4.30-5.90); RDW 20.5 % (11.5-15.5); WBC 7.3 k/uL (3.8-10.6)
[2020-12-24 06:45] LABS: Platelet Count 13 k/uL (150-450)
[2020-12-24] MEDS: PANTOPRAZOLE SODIUM 40 MG GRANULE PKT PEG/G-TUBE SCH (07:53)
[2020-12-24] MEDS: ursodioL 300 MG CAP PEG/G-TUBE SCH ×2 (07:53→20:05)
[2020-12-24] MEDS: THIAMINE 100 MG TAB PEG/G-TUBE SCH (07:53)
[2020-12-24] MEDS: FLUoxetine HCL 20 MG CAP PEG/G-TUBE SCH (07:53)
[2020-12-24] MEDS: ACETAMINOPHEN TAB 500 MG TAB PEG/G-TUBE SCH ×2 (08:19→20:05)
[2020-12-24 08:45] LABS: Band Neutrophils % 2 %; Eosinophils # (M) 0.07 k/uL (0-0.7); Lymphocytes # (M) 4.16 k/uL (1.0-4.8); Metamyelocytes # (M) 0.07 k/uL (0); Metamyelocytes % 1 %; Myelocytes # (M) 0.15 k/uL (0); Myelocytes % 2 %; Neutrophils % (M) 25 %; Nucleated Red Blood Cells 0 /100 WBC (0-0); Total Cells Counted 200
[2020-12-24] MEDS ORDERED: ACETAMINOPHEN TAB 500 MG TAB PO SCH (09:00)
[2020-12-24 09:42] LABS: African American GFR (CKD) 129.1 (60.0-200.0); Anion Gap 1.9 mmol/L (4.00-12.00); C Reactive Protein 5.7 mg/dL (0.0-0.8); Calcium 7.4 mg/dL (8.7-10.3); Carbon Dioxide 22.1 mmol/L (21.6-31.8); Non-African American GFR(CKD) 111.3 (60.0-200.0); Potassium 3.6 mmol/L (3.5-5.5)
--- NOTE | 2020-12-24 10:16 | P.PN ---
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 patient is status post chemo and has recently completed a bone marrow transplant at [facility] in this patient currently at local [facility] patient was sent to the ER at [facility] last night for evaluation of abnormal lab values and mental status changes apparently the patient was noticed to be less alert has been complaining of feeling weakness patient on presentation to the hospital did have low-grade fever of 99.4 degrees for night patient do not have any hypoxemia or need for supplemental oxygen patient did have a hemoglobin of 10.2 with a weight of 13.6 on admission that has subsequent normalized to 7.6 BUN/creatinine was mildly elevated liver exams were mildly elevated urine did not show any pyuria urine drug screen was positive for benzo did have a CT of the brain negative for any bleed patient has been sent to the hospital for further work-up ID was consulted because of his elevated white count admission, patient denies having any fever or chills denies having any headache no chest pain no shortness breath he did have occasional cough and is bringing up some sputum no hemoptysis no nausea no vomiting no abdominal pain no diarrhea Objective - Vital Signs Vital signs: Vital Signs Temp 98.1 F 12/23/20 13:03 Pulse 98 12/23/20 13:03 Resp 18 12/23/20 13:03 BP 97/68 12/23/20 13:03 Pulse Ox 100 12/23/20 13:03 Intake & Output 12/22/20 12/23/20 12/23/20 18:59 06:59 18:59 Intake Total 590 Balance 590 Weight 54.431 kg 54.431 kg Intake: Oral 590 Other: Voiding Method Diaper Diaper # Voids 1 1 # Bowel Movements 1 1 - Exam - Constitutional General appearance: Present: average body habitus, cooperative, no acute distress - EENT Eyes: Present: anicteric sclerae, EOMI, PERRLA, normal appearance ENT: Present: hearing grossly normal, normal oropharynx Ears: bilateral: normal - Neck Neck: Present: normal ROM. Absent: lymphadenopathy, rigidity, thyromegaly Carotids: negative: bruit present Thyroid: bilateral: normal size, negative: enlarged, nodule - Respiratory Respiratory: bilateral: CTA, negative: rales, rhonchi, wheezing - Cardiovascular Rhythm: regular Heart sounds: normal: S1, S2 Abnormal Heart Sounds: Absent: systolic murmur, diastolic murmur - Gastrointestinal General gastrointestinal: Present: normal bowel sounds, soft. Absent: distended, organomegaly, tenderness - Genitourinary Genitourinary Comment(s): deferred - Integumentary Integumentary: Present: normal turgor. Absent: jaundiced, rash, ulcer - Neurologic Neurologic: Present: CNII-XII intact. Absent: focal deficits - Musculoskeletal Musculoskeletal: Present: gait normal, strength equal bilaterally - Psychiatric Psychiatric: Present: A&O x's 3, appropriate affect, intact judgment & insight - Labs CBC & Chem 7: 12/24/20 05:59 12/24/20 05:59 Labs: Abnormal Lab Results - Last 24 Hours (Table) 12/23/20 12/23/20 12/23/20 Range/Units 07:20 07:20 07:20 RBC 3.01 L (4.30-5.90) m/uL Hgb 10.9 L (13.0-17.5) gm/dL Hct 34.1 L (39.0-53.0) % MCV 113.5 H (80.0-100.0) fL MCH 36.3 H (25.0-35.0) pg RDW 20.5 H (11.5-15.5) % Plt Count 15 L* (150-450) k/uL Macrocytosis Marked A Fibrinogen 128 L (200-500) mg/dL D-Dimer 5.83 H (<0.60) mg/L FEU BUN/Creatinine Ratio 35.00 H (12.00-20.00) Ratio Calcium 7.7 L (8.7-10.3) mg/dL AST 190 H (14-35) U/L ALT 100 H (10-49) U/L Alkaline Phosphatase 285 H (41-126) U/L Albumin 2.30 L (3.80-4.90) g/dL Globulin 4.0 H (1.6-3.3) g/dL Albumin/Globulin Ratio 0.58 L (1.60-3.17) g/dL Assessment and Plan Assessment: 1. Altered mental statusweakness - Patient is back at baseline and is awake and alert and oriented; we will continue to monitor closely with possible consult to neurology if indicated 2. Critical thrombocytopenia; monitor CBC closely; consult hematology/oncology 4. Transaminitis; etiology unclear; we will monitor liver enzymes closely with plans to order hepatic ultrasound if liver enzymes continue to trend up 5. Hypertension; patient not taking any antihypertensive medication; we will monitor blood pressure closely and make further recommendations as needed 6. Hyperlipidemia; not on any statin therapy at this time 7. TIA/CVA; currently not on aspirin or statin therapy 8. Acute myeloid leukemia; consult oncology 9. Depression/anxiety; continue with home dose of Remeron; we will plan to resume Klonopin if mental status remains stable DVT prophylaxis; SCDs CODE STATUS; full code
[2020-12-24 11:19] LABS: Ferritin >16500.0 ng/mL (10.0-291.0); Folate, Serum >24.0 ng/mL; Iron 105 ug/dL (65-175); LDH 350 U/L (120-246); Total Iron Binding Capacity 150 ug/dL (228-460)
--- NOTE | 2020-12-24 11:45 | P.CNNES ---
History of Present Illness Consult date: 12/24/20 Requesting physician: Fantasma Chadwick Reason for Consult: altered mental status History of Present Illness: This is a 70-year-old gentleman with medical history reported stroke (hemorrhagic stroke per EMR), acute myeloblastic leukemia, chronic thrombocytopenia s/p chemo hypertension, hyperlipidemia, anxiety and depression who presented emergency department on 12/21/2020 altered mental status. Some of the history is obtained from medical record and his . Per the ED note, the patient denied the when he presented to the ED being altered but felt he was weak and wants to be discharged home and does not feel like he needs to be in the hospital. He denied to the ED team that he had any headache, nausea vomiting or diarrhea. ED felt that patient some mental status has been improving with hydration as well as his complaint of weakness. Per EMR stated that the patient has acute myeloblastic leukemia diagnosed in 12/2019 and this patient the status post chemotherapy and recently has completed bone marrow transplant at [facility]. Patient home medication per EMR is a acyclovir 800 mg 1 tablet twice a day, t hiamine 100 mg daily, Remeron 50 mg daily, Klonopin 0.5 mg daily, Zoloft 60 mg daily,Ursodiol I spoke with the patient's (Marley): the patient He had bone marrow transplant in 05/2020. Last chemotherapy 05/2020. He was On Tacrolimus and was taken off end of 10/2020 since his levels are off. Also Per Oncology note his levesl were high in october. THe patient was confused since 06/2020 and has been fluctuation but worse yesterday (but she has not talked to him in last few days and not seen in last few weeks). Per he was confused since June2020 and liver was elevated and it fluctuates. Patient does not have history of seizures. Patient had hemorrhagic stroke (possible 2004/2005) and was felt due to uncontrolled hypertension but had no neurological deficit. He has no intervent ion for hemorrhagic stroke. He resides currently in a nursing facility. Some of the workup in the hospital consisted of: Initial vital signs was blood pressure of 100/67, heart rate of 96, respiratory of 20, initial temperature of 99.4 Fahrenheit oral and pulse ox of 97% at room air. He had the repeated blood pressure of 95/70 and his heart rate was 100 to 110s. He's been afebrile in the hospital stay. Initial white blood cell is 13.6 but then the next 2 white blood cell were within normal limits. MCV of 109 on presentation that the repeat it was 113, hemoglobin 10.2 and the most current one is 10.0, hematocrit of 30.6 and was repeated 30.9. On presentation the patient had platelets of 11,000 and the most repeated is 13,000 but upon reviewing medical record the patient has chronic thrombocytopenia in April was 14,000 and the past he had as low as 2000. Sodium on presentation is 1:30 and most repeat is 138 which is within normal limits. The creatinine is normal the most recent creatinine is 0.6, glucose is normal at 82 on presentation. Calcium 7.6 which is what that considered the low. Phosphorus is 4.0 magnesium is 1.7 which are within normal limits. AST of 121 on presentation and ALT of 64 which are elevated in the repeated is trended up of AST of 190 and ALT of 100 but the ammonia level is 12. Lipase is less than 10. Urine toxicology screen is positive for benzo otherwise arrest is a negative Give the head is reported as no acute intracranial hemorrhage, midline shift or mass effect. Mild progression of brain volume loss and chronic microvascular ischemic changes. I personally reviewed the the CT of the head there is no intracranial hemorrhage, mass effect, no significant ischemic stroke that was appreciable. I felt the patient had the old small vessel disease. I felt possibly the patient has osteolytic lesions on the bilateral frontal region on the bone window. EKG is reported as sinus tachycardia. Otherwise normal EKG. Infection disease is consulted felt the patient had mild elevated white blood cell on admission and that is subsequently the resolved and no fevers so there is no obvious infection the rule out pneumonia because of the patient has some cough. Past Medical History Past Medical History: Cancer, CVA/TIA, Hyperlipidemia, Hypertension Additional Past Medical History / Comment(s): Left-sided spontaneous pneuomthorax; hemorrhagic stroke; left carotid stenosis 50%, Leukemia, History of Any Multi-Drug Resistant Organisms: None Reported Past Surgical History: Orthopedic Surgery Additional Past Surgical History / Comment(s): ACL replacement, PICC Past Anesthesia/Blood Transfusion Reactions: No Reported Reaction Past Psychological History: Anxiety, Depression Smoking Status: Former smoker Past Alcohol Use History: None Reported Past Drug Use History: None Reported - Past Family History Father Family Medical History: Unable to Obtain Additional Family Medical History / Comment(s): Unable to attain family medical history as patient was adopted Medications and Allergies Home Medications Medication Instructions Recorded Confirmed Type Acyclovir [Zovirax] 800 mg PEG/G-TUBE BID@0800,199912/22/20 12/22/20 History Dermseptin 1 applic TOPICAL DAILY PRN 12/22/20 12/22/20 History Dermseptin 1 applic TOPICAL HS 12/22/20 12/22/20 History FLUoxetine HCL [PROzac] 60 mg PEG/G-TUBE DAILY@79912/22/20 12/22/20 History Mirtazapine [Remeron] 15 mg PEG/G-TUBE HS@199912/22/20 12/22/20 History Nutritional Juice 1 can PEG/G-TUBE BID@1200,1600 12/22/20 12/22/20 History Omeprazole [PriLOSEC] 20 mg PEG/G-TUBE DAILY@79912/22/20 12/22/20 History Thiamine [Vitamin B-1] 100 mg PEG/G-TUBE DAILY@79912/22/20 12/22/20 History clonazePAM [KlonoPIN] 0.5 mg PEG/G-TUBE DAILY@79912/22/20 12/22/20 History ursodioL [Ursodiol] 300 mg PEG/G-TUBE BID@08,199912/22/20 12/22/20 History Allergies Allergy/AdvReac Type Severity Reaction Status Date / Time No Known Allergies Allergy Verified 12/22/20 07:42 Physical Examination - Vital Signs Vital Signs: Vital Signs Temp Pulse Resp BP Pulse Ox 12/24/20 08:00 100 16 12/24/20 07:48 98 12/24/20 05:00 98.4 F 107 H 16 101/69 97 12/23/20 20:58 99.0 F 102 H 16 102/65 97 12/23/20 13:03 98.1 F 98 18 97/68 100 Intake and Output 12/23/20 12/24/20 12/24/20 22:59 06:59 14:59 Intake Total 1920 240 240 Balance 1920 240 240 Intake: Intake, IV Titration 1300 Amount Sodium Chloride 0.9% 1, 1300 000 ml @ 130 mls/hr IV . Q7H42M [facility] Rx#:[id number] Oral 620 240 240 Other: Voiding Method Bedside Commode Bedside Commode Diaper Diaper # Voids 3 2 1 # Bowel Movements 2 1 Weight 54.431 kg GENERAL: The patient is lying in bed and is not in acute distress. CHEST: The heart rate is regular rate rhythm. No murmurs to auscultation. LUNG: Clear to auscultation bilaterally no wheezing noted throughout. Not labo red breathing. ABDOMEN/GI: Bowel sounds present in all 4 quadrants. No tenderness to palpation throughout. NEUROLOGICAL: Higher mental function: The patient is awake, alert, oriented to self. He sta juliette he was in the hospital but it was [place]. He correctly stated the year but the month was November. He was able to name the current stated we are in and the capital [facility]. He was able to name objects correctly (watch, pen and glasses). Patient is following simple commands. No aphasia and no neglect. Cranial nerves: The pupils are round, equal and reactive to light and accommodation. Visual cassidy are full to confrontation throughout. Extraocular movement is intact no nystagmus is noted. Facial sensation is normal to touch throughout. The facial strength is normal throughout. Hearing is moderately bilaterally to hand rub. Tongue is midline and moved [id number] without any difficulty. No dysarthria is noted. Shoulder shrug is normal bilaterally. Motor: Gait is deferred. The strength is upper is arm flexion/extension are 5-, bilateral hand checker stocker are 5/5. Lower proximally 5- while knee extension bilaterally are 4+. Otherwise 5/5 throughout. Normal tone and bulk. Cerebellum: Normal finger to nose bilaterally. Sensation: Sensation is normal to touch throughout. Reflexes (right/left): 2+ throughout uppers, patellars are 1-2+ bilaterally and ankles are 1+ bilaterally. Plantars are mute bilaterally. Results Urinalysis seems negative for urinary tract infection - Laboratory Findings CBC and BMP: 12/24/20 05:59 12/24/20 05:59 Abnormal Lab Findings: Abnormal Labs 12/22/20 12/22/20 12/22/20 00:23 00:23 00:23 WBC 13.6 H RBC 2.81 L Hgb 10.2 L Hct 30.6 L MCV 109.1 H MCH 36.3 H RDW 20.5 H Plt Count 11 L* Lymphocytes # (Manual) 8.16 H Monocytes # (Manual) 1.22 H Metamyelocytes # (Man) 0.14 H Myelocytes # (Manual) Macrocytosis Marked A PT 12.3 H INR 1.2 H APTT 35.8 H Fibrinogen D-Dimer Sodium 130 L BUN 23 H Creatinine 0.53 L BUN/Creatinine Ratio Calcium 7.6 L AST 121 H ALT 64 H Alkaline Phosphatase 233 H Total Protein 6.1 L Albumin 2.1 L Globulin Albumin/Globulin Ratio Lipase Urine Protein Urine Blood Urine RBC Urine Bacteria Hyaline Casts Urine Mucus U Benzodiazepines Scrn 12/22/20 12/22/20 12/23/20 00:30 01:21 07:20 WBC RBC 3.01 L Hgb 10.9 L Hct 34.1 L MCV 113.5 H MCH 36.3 H RDW 20.5 H Plt Count 15 L* Lymphocytes # (Manual) Monocytes # (Manual) Metamyelocytes # (Man) Myelocytes # (Manual) Macrocytosis Marked A PT INR APTT Fibrinogen D-Dimer Sodium BUN Creatinine BUN/Creatinine Ratio Calcium AST ALT Alkaline Phosphatase Total Protein Albumin Globulin Albumin/Globulin Ratio Lipase <10 L Urine Protein 1+ H Urine Blood Small H Urine RBC 32 H Urine Bacteria Rare H Hyaline Casts 6 H Urine Mucus Moderate H U Benzodiazepines Scrn Detected H 12/23/20 12/23/20 12/24/20 07:20 07:20 05:59 WBC RBC 2.78 L Hgb 10.0 L Hct 30.9 L MCV 111.1 H MCH 36.1 H RDW 20.5 H Plt Count 13 L* Lymphocytes # (Manual) Monocytes # (Manual) 1.10 H Metamyelocytes # (Man) 0.07 H Myelocytes # (Manual) 0.15 H Macrocytosis Marked A PT INR APTT Fibrinogen 128 L D-Dimer 5.83 H Sodium BUN Creatinine BUN/Creatinine Ratio 35.00 H Calcium 7.7 L AST 190 H ALT 100 H Alkaline Phosphatase 285 H Total Protein Albumin 2.30 L Globulin 4.0 H Albumin/Globulin Ratio 0.58 L Lipase Urine Protein Urine Blood Urine RBC Urine Bacteria Hyaline Casts Urine Mucus U Benzodiazepines Scrn Assessment and Plan Assessment: * Encephalopathy seems due to seem due to toxic-metabolic encephalopathy (has elevated LFT's and trending up). Per he had confusion since 06/2020 and it has been fluctuating and his LFT's were also elevated. Rule out metastasis. * Elevated LFT's (most current 190/100)--trending up * History of hemorrhagic stroke (per thinks possible in 2004 or 2005) and was felt due to uncontrolled hypertension and no intervention required) without focal deficits. * Acute myeloblastic leukemia (diagnosed in 12/2019) status post chemotherapy (last on05/2020) and bone marrow (05/2020). Had elevated Tacrolimus in 10/2020 and was stopped. * Chronic thrombocytopenia * History of hypertension * Hyperlipidemia * History of an anxiety and depression Plan: I ordered MRI of the brain with and without. Ordered routine EEG. I'll not start the patient on an antiepileptic drug unless there is epileptiform discharges or seizure on the EEG. Ordered TSH, vitamin B12, folate level. Every 4 hours neuro checks Consulted PT and OT Infection disease on board Oncology team is on board We'll defer the rest of the medical management to primary team. The plan is discussed with the patient's (Marley via phone). Thank for the consultation. Dr. Weston will provide neurology coverage starting tomorrow AM. Gorge Clark M.D. Neuro-hospitalist Time with Patient: Greater than 30
[2020-12-24 13:35] LABS: Albumin 2.1 g/dL (3.80-4.90); Albumin/Globulin Ratio 0.51 (1.60-3.17); Bilirubin, Conjugated 0.4 mg/dL (0.20-0.40); Bilirubin,Unconjugated 0.2 mg/dL; Globulin 4.1 g/dL (1.6-3.3); Total Bilirubin 0.6 mg/dL (0.2-1.2); Total Protein 6.2 g/dL (6.2-8.2)
--- NOTE | 2020-12-24 14:39 | XR ---
EXAMINATION TYPE: XR chest 2V DATE OF EXAM: 12/24/2020 COMPARISON: 05/05/2020 HISTORY: Pneumonia. Chest pain TECHNIQUE: FINDINGS: There is some diffuse pulmonary interstitial edema. Heart and mediastinum appear normal. Th ere is right central venous catheter with tip in the superior vena cava. Trachea is midline. There ar e no hilar masses. Bony thorax is intact. IMPRESSION: Interstitial increased density in both lungs consistent with acute interstitial pneumonia or heart failure that is a change compared to old exam.
--- NOTE | 2020-12-24 15:40 | CT ---
EXAMINATION TYPE: CT angio chest DATE OF EXAM: 12/24/2020 COMPARISON: 03/16/2020 HISTORY: elevated d-dimer CT DLP: 269.1 mGycm Automated exposure control for dose reduction was used. CONTRAST: Performed with IV Contrast, patient injected with 100 mL of Isovue 370. There are 3-D post processed images. There is patchy areas of peripheral pulmonary airspace infiltrates. There is small pericardial effusi on. Heart is normal in size. There is no mediastinal adenopathy. There are no hilar masses. There are small pleural effusions. Upper abdominal soft tissues are intact. There is normal contrast opacification of the pulmonary arteries. There are no filling defects. Burns um is intact. Thoracic vertebra have normal alignment. There is mild wedging of T8 vertebra of 15%. IMPRESSION: No evidence of pulmonary embolism. There is patchy bilateral pneumonia that is mostly new compared to old exam. There is some atelectasi s and infiltrate at the posterior lung bases which is similar to old exam. There is a new compression fracture of T8 vertebra compared to old exam.
[2020-12-24 17:05] LABS: Folate, Serum 20.9 ng/mL
[2020-12-24] MEDS ORDERED: VANCOMYCIN IV PER PHARMACY 1 EACH MISC MISCELLANE PRN (18:49)
--- NOTE | 2020-12-24 18:49 | P.PN ---
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 patient is status post chemo and has recently completed a bone marrow transplant at [facility] in this patient currently at local [facility] patient was sent to the ER at [facility] last night for evaluation of abnormal lab values and mental status changes apparently the patient was noticed to be less alert has been complaining of feeling weakness patient on presentation to the hospital did have low-grade fever of 99.4 degrees for night patient do not have any hypoxemia or need for supplemental oxygen patient did have a hemoglobin of 10.2 with a weight of 13.6 on admission that has subsequent normalized to 7.6 BUN/creatinine was mildly elevated liver exams were mildly elevated urine did not show any pyuria urine drug screen was positive for benzo did have a CT of the brain negative for any bleed patient has been sent to the hospital for further work-up ID was consulted because of his elevated white count admission, patient denies having any fever or chills denies having any headache no chest pain no shortness breath he did have occasional cough and is bringing up some sputum no hemoptysis no nausea no vomiting no abdominal pain no diarrhea 12/24/2020 Patient is seen and evaluated in room at bedside; remains pleasantly confused; vital signs are stable CTA chest done which reveals patchy bilateral pneumonia and new compression fracture off T8 vertebra Patient has been evaluated by neurology and altered mental status is deemed toxicmetabolic with elevated LFTs; MRI of the brain is recommended with and without contrast along with EEG; order TSH, vitamin B12 and folic acid levels; patient has been placed on neuro checks every 4 hours; PT/OT consulted We will start patient on IV antibiotics in form of Zosyn and vancomycin for healthcare associated pneumonia; await further recommendations from ID Objective - Vital Signs Vital signs: Vital Signs Temp 98.7 F 12/24/20 17:13 Pulse 101 H 12/24/20 17:13 Resp 16 12/24/20 17:13 BP 107/70 12/24/20 17:13 Pulse Ox 96 12/24/20 17:13 Intake & Output 12/23/20 12/24/20 12/24/20 18:59 06:59 18:59 Intake Total 0022 049 3267 Balance 3906 557 5438 Weight 54.431 kg Intake: Intake, IV Titration 1300 Amount Sodium Chloride 0.9% 1, 1300 000 ml @ 130 mls/hr IV . [id number] [facility] Rx#:[id number] Oral [phone] Other: Voiding Method Diaper Bedside Commode Bedside Commode Diaper Diaper # Voids 3 2 3 # Bowel Movements 1 2 3 - Exam - Constitutional General appearance: Present: average body habitus, cooperative, no acute distress - EENT Eyes: Present: anicteric sclerae, EOMI, PERRLA, normal appearance ENT: Present: hearing grossly normal, normal oropharynx Ears: bilateral: normal - Neck Neck: Present: normal ROM. Absent: lymphadenopathy, rigidity, thyromegaly Carotids: negative: bruit present Thyroid: bilateral: normal size, negative: enlarged, nodule - Respiratory Respiratory: bilateral: CTA, negative: rales, rhonchi, wheezing - Cardiovascular Rhythm: regular Heart sounds: normal: S1, S2 Abnormal Heart Sounds: Absent: systolic murmur, diastolic murmur - Gastrointestinal General gastrointestinal: Present: normal bowel sounds, soft. Absent: distended, organomegaly, tenderness - Genitourinary Genitourinary Comment(s): deferred - Integumentary Integumentary: Present: normal turgor. Absent: jaundiced, rash, ulcer - Neurologic Neurologic: Present: CNII-XII intact. Absent: focal deficits - Musculoskeletal Musculoskeletal: Present: gait normal, strength equal bilaterally - Psychiatric Psychiatric: Present: A&O x's 3, appropriate affect, intact judgment & insight - Labs CBC & Chem 7: 12/24/20 05:59 12/24/20 05:59 Labs: Abnormal Lab Results - Last 24 Hours (Table) 12/22/20 12/23/20 12/24/20 Range/Units 01:21 07:20 05:59 RBC 2.78 L (4.30-5.90) m/uL Hgb 10.0 L (13.0-17.5) gm/dL Hct 30.9 L (39.0-53.0) % MCV 111.1 H (80.0-100.0) fL MCH 36.1 H (25.0-35.0) pg RDW 20.5 H (11.5-15.5) % Plt Count 13 L* (150-450) k/uL Monocytes # (Manual) 1.10 H (0-1.0) k/uL Metamyelocytes # (Man) 0.07 H (0) k/uL Myelocytes # (Manual) 0.15 H (0) k/uL Macrocytosis Marked A Chloride (96-109) mmol/L Anion Gap (4.00-12.00) mmol/L Creatinine (0.6-1.5) mg/dL BUN/Creatinine Ratio (12.00-20.00) Ratio Calcium (8.7-10.3) mg/dL TIBC 150 L (228-460) ug/dL % Saturation 70.00 H (15.00-50.00) Ferritin >11627.0 H (10.0-291.0) ng/mL AST 194 H (14-35) U/L ALT 98 H (10-49) U/L Alkaline Phosphatase 314 H (41-126) U/L Lactate Dehydrogenase 350 H (120-246) U/L C-Reactive Protein (0.0-0.8) mg/dL Albumin 2.10 L (3.80-4.90) g/dL Globulin 4.1 H (1.6-3.3) g/dL Albumin/Globulin Ratio 0.51 L (1.60-3.17) g/dL Vitamin B12 1590.0 H (200.0-944.0) pg/mL 12/24/20 12/24/20 Range/Units 05:59 05:59 RBC (4.30-5.90) m/uL Hgb (13.0-17.5) gm/dL Hct (39.0-53.0) % MCV (80.0-100.0) fL MCH (25.0-35.0) pg RDW (11.5-15.5) % Plt Count (150-450) k/uL Monocytes # (Manual) (0-1.0) k/uL Metamyelocytes # (Man) (0) k/uL Myelocytes # (Manual) (0) k/uL Macrocytosis Chloride 111 H (96-109) mmol/L Anion Gap 1.90 L (4.00-12.00) mmol/L Creatinine 0.5 L (0.6-1.5) mg/dL BUN/Creatinine Ratio 34.00 H (12.00-20.00) Ratio Calcium 7.4 L (8.7-10.3) mg/dL TIBC (228-460) ug/dL % Saturation (15.00-50.00) Ferritin (10.0-291.0) ng/mL AST (14-35) U/L ALT (10-49) U/L Alkaline Phosphatase (41-126) U/L Lactate Dehydrogenase (120-246) U/L C-Reactive Protein 5.7 H (0.0-0.8) mg/dL Albumin (3.80-4.90) g/dL Globulin (1.6-3.3) g/dL Albumin/Globulin Ratio (1.60-3.17) g/dL Vitamin B12 2218.0 H (200.0-944.0) pg/mL Microbiology - Last 24 Hours (Table) 12/23/20 09:45 Blood Culture - Preliminary Blood No Growth after 24 hours 12/23/20 07:20 Blood Culture - Preliminary Blood No Growth after 24 hours Assessment and Plan Assessment: 1. Altered mental statusweakness - Patient is back at baseline and is awake and alert and oriented; we will continue to monitor closely with possible consult to neurology if indicated 2. Critical thrombocytopenia; monitor CBC closely; consult hematology/oncology 4. Transaminitis; etiology unclear; we will monitor liver enzymes closely with plans to order hepatic ultrasound if liver enzymes continue to trend up 5. Hypertension; patient not taking any antihypertensive medication; we will monitor blood pressure closely and make further recommendations as needed 6. Hyperlipidemia; not on any statin therapy at this time 7. TIA/CVA; currently not on aspirin or statin therapy 8. Acute myeloid leukemia; consult oncology 9. Depression/anxiety; continue with home dose of Remeron; we will plan to res ume Klonopin if mental status remains stable DVT prophylaxis; SCDs CODE STATUS; full code
[2020-12-24] MEDS ORDERED: VANCOMYCIN 1,000 MG in SODIUM CHLORIDE 0.9% 250 ML IVPB SCH (20:00)
[2020-12-24] MEDS: PIPERACILLIN-TAZOBACTAM 3.375 GM in SODIUM CHLORIDE 0.9% 100 ML IVPB SCH (20:13)
[2020-12-24] MEDS: ZINC OXIDE 20% OINT 28.4 GM TUBE TOPICAL SCH (20:32)
--- NOTE | 2020-12-25 00:34 | PN ---
PROGRESS NOTE DATE OF SERVICE: 12/24/2020 REASON FOR FOLLOWUP: 1. Leukocytosis. 2. Fever. INTERVAL HISTORY: The patient did spike a fever this evening of 100.7 degrees Fahrenheit. The patient has been breathing comfortably. Denies having any chest pain. Did have a cough with occasional sputum. No nausea, no vomiting. No abdominal pain or diarrhea. PHYSICAL EXAMINATION: Blood pressure 113/72 with a pulse of 108, temperature is 100.6. He is 92% on room air. General description is an elderly male lying in bed in no distress. Respiratory system: Unlabored breathing, decreased intensity of breath sounds. No wheeze. Heart S1, S2. Regular rate and rhythm. Abdomen soft, no tenderness. Extremities: No edema of the feet. LABS: Hemoglobin is 10.3, white count 7.3, BUN of 17, creatinine 0.5. Urine has been negative. CRP was 5.7. ( ) was 0.02. DIAGNOSTIC IMPRESSION AND PLAN: Patient with elevated white count in the patient that has subsequently normalized. Initial concern of possible pneumonia, however, inflammatory markers not significantly elevated. Now with evidence of fever. Vancomycin and Zosyn have been started. However, we will repeat culture. Continue with Zosyn, discontinue vancomycin to decrease risk of nephrotoxicity. Try to obtain a sputum and continue supportive care. MMODL / IJN: [id number] /
[2020-12-25] MEDS: PIPERACILLIN-TAZOBACTAM 3.375 GM in SODIUM CHLORIDE 0.9% 100 ML IVPB SCH ×3 (04:27→22:27)
[2020-12-25 06:22] LABS: African American GFR (CKD) >90 (>60 ml/min/1.73 sqM); Anion Gap 1 mmol/L; Blood Urea Nitrogen 17 mg/dL (9-20); Carbon Dioxide 20 mmol/L (22-30); Chloride 112 mmol/L (98-107); Glucose 77 mg/dL (74-99); Non-African American GFR(CKD) >90 (>60 ml/min/1.73 sqM); Potassium 3.2 mmol/L (3.5-5.1); Sodium 133 mmol/L (137-145)
[2020-12-25] MEDS ORDERED: Potassium Replacement Protocol 1 EACH MISC MISCELLANE PRN ×2 (07:57→09:02)
[2020-12-25] MEDS: ACETAMINOPHEN TAB 500 MG TAB PEG/G-TUBE SCH ×2 (08:34→22:28)
[2020-12-25] MEDS: FLUoxetine HCL 20 MG CAP PEG/G-TUBE SCH (08:34)
[2020-12-25] MEDS: ursodioL 300 MG CAP PEG/G-TUBE SCH ×2 (08:35→22:28)
[2020-12-25] MEDS: THIAMINE 100 MG TAB PEG/G-TUBE SCH (08:38)
[2020-12-25] MEDS: SODIUM CHLORIDE 0.9% 1,000 ML IV SCH ×2 (08:38→22:27)
[2020-12-25] MEDS: PANTOPRAZOLE SODIUM 40 MG GRANULE PKT PEG/G-TUBE SCH (08:38)
[2020-12-25] MEDS: MORPHINE SULFATE 4 MG/ML SYRINGE IV PRN (08:39)
[2020-12-25] MEDS: POTASSIUM CHLORIDE ER 20 MEQ TAB.ER PO SCH ×2 (10:17→13:14)
--- NOTE | 2020-12-25 17:11 | P.PN ---
Subjective Progress Note Date: 12/25/20 Patient initially seen by Dr. Gorge Clark yesterday. Please refer to his note for detail. Patient is a 70-year-old male with history of leukemia, status post chemotherapy and bone marrow transplant. Patient has history of hemorrhagic stroke, acute myeloblastic leukemia, chronic thrombocytopenia, status post chemo therapy, hypertension, hyperlipidemia and anxiety came to the hospital on 12/21/2020 with altered mental status. Per EMR stated that the patient has acute myeloblastic leukemia diagnosed in 12/2019 and this patient the status post chemotherapy and recently has completed bone marrow transplant at [facility]. Patient home medication per EMR is a acyclovir 800 mg 1 tablet twice a day, th iamine 100 mg daily, Remeron 50 mg daily, Klonopin 0.5 mg daily, Zoloft 60 mg daily,Ursodiol As per patient's report (Marley): the patient He had bone marrow transplant in 05/2020. Last chemotherapy 05/2020. He was On Tacrolimus and was taken off end of 10/2020 since his levels are off. Also Per Oncology note his levels were high in october. THe patient was confused since 06/2020 and has been fluctuation but worse yesterday (but she has not talked to him in last few days and not seen in last few weeks). Per he was confused since June2020 and liver was elevated and it fluctuates. Patient does not have history of seizures. Patient had hemorrhagic stroke (possible 2004/2005) and was felt due to uncontrolled hypertension but had no neurological deficit. He has no intervention for hemorrhagic stroke. He resides currently in a nursing facility. Patient at present is slightly coughing. Denies any headache, appears no complaints. Objective - Vital Signs Vital signs: Vital Signs Temp 98.1 F 12/25/20 12:42 Pulse 77 12/25/20 12:42 Resp 18 12/25/20 12:42 BP 118/91 12/25/20 12:42 Pulse Ox 92 L 12/25/20 12:42 Intake & Output 12/24/20 12/25/20 12/25/20 18:59 06:59 18:59 Intake Total 1070 Balance 1070 Intake: Oral 1070 Other: Voiding Method Bedside Commode Bedside Commode Bedside Commode Diaper Diaper Diaper # Voids 3 3 # Bowel Movements 3 - Exam Patient is an elderly male, in no acute distress. He is slightly short of breath. Mildly coughing. Patient is alert awake oriented to time place and person. Patient knows it is December 2020 that he is in [facility] in [facility]. Patient can name and repeat very well. Speech and language functions are normal. Attention, concentration and fund of knowledge is adequate. On cranial examination, pupils are round and reacting to light, visual cassidy are full on confrontation, extraocular muscles are intact with no nystagmus. Patient's sclera is mildly icteric. Face is symmetric, tongue protrudes to the midline. Palatal elevation and sensation normal, hearing is moderately decreased and shoulder shrug normal, facial sensation normal. Shoulder shrug normal. On muscle strength testing, there is no pronator drift and the strength is normal in arms and legs distally and proximally. Deep tendon reflexes are hypoactive and plantars downgoing. Sensory to touch is equal with no neglect. Cerebellar function showed no ataxia for [id number] testing. No dysdiadochokinesia. Tone and bulk of muscles normal. Gait not checked. On general examination, there is no carotid bruit or murmur, S1-S2 audible. Abd omen is soft nontender. Chest is clear. Peripheral pulses are present. Very mild peripheral edema. - Labs CBC & Chem 7: 12/24/20 05:59 12/25/20 05:20 Labs: Abnormal Lab Results - Last 24 Hours (Table) 12/24/20 12/25/20 Range/Units 05:59 05:20 Sodium 133 L (137-145) mmol/L Potassium 3.2 L (3.5-5.1) mmol/L Chloride 112 H (98-107) mmol/L Carbon Dioxide 20 L (22-30) mmol/L Creatinine 0.59 L (0.66-1.25) mg/dL Calcium 7.0 L (8.4-10.2) mg/dL Vitamin B12 2218.0 H (200.0-944.0) pg/mL Microbiology - Last 24 Hours (Table) 12/23/20 09:45 Blood Culture - Preliminary Blood No Growth after 48 hours 12/23/20 07:20 Blood Culture - Preliminary Blood No Growth after 48 hours Assessment and Plan Assessment: * Encephalopathy seems due to seem due to toxic-metabolic encephalopathy (has elevated LFT's and trending up). Per he had confusion since 06/2020 and it has been fluctuating and his LFT's were also elevated. Rule out metastasis. * Elevated LFT's (most current 190/100)--trending up * History of hemorrhagic stroke (per thinks possible in 2004 or 2005) and was felt due to uncontrolled hypertension and no intervention required) without focal deficits. * Acute myeloblastic leukemia (diagnosed in 12/2019) status post chemotherapy (last on05/2020) and bone marrow (05/2020). Had elevated Tacrolimus in 10/2020 and was stopped. * Chronic thrombocytopenia * History of hypertension * Hyperlipidemia * History of an anxiety and depression Plan: Await MRI of the brain with and without. Await routine EEG. We will hold off on antiepileptic drug unless there is epileptiform discharges or seizure on the EEG. TSH 2.45, vitamin B12 2218, folate level 20.9. Every 4 hours neuro checks Consulted PT and OT Infection disease on board Oncology team is on board We'll defer the rest of the medical management to primary team.
--- NOTE | 2020-12-25 20:44 | P.PN ---
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 patient is status post chemo and has recently completed a bone marrow transplant at [facility] in this patient currently at local group home patient was sent to the ER at [facility] last night for evaluation of abnormal lab values and mental status changes apparently the patient was noticed to be less alert has been complaining of feeling weakness patient on presentation to the hospital did have low-grade fever of 99.4 degrees for night patient do not have any hypoxemia or need for supplemental oxygen patient did have a hemoglobin of 10.2 with a weight of 13.6 on admission that has subsequent normalized to 7.6 BUN/creatinine was mildly elevated liver exams were mildly elevated urine did not show any pyuria urine drug screen was positive for benzo did have a CT of the brain negative for any bleed patient has been sent to the hospital for further work-up ID was consulted because of his elevated white count admission, patient denies having any fever or chills denies having any headache no chest pain no shortness breath he did have occasional cough and is bringing up some sputum no hemoptysis no nausea no vomiting no abdominal pain no diarrhea 12/24/2020 Patient is seen and evaluated in room at bedside; remains pleasantly confused; vital signs are stable CTA chest done which reveals patchy bilateral pneumonia and new compression fracture off T8 vertebra Patient has been evaluated by neurology and altered mental status is deemed toxicmetabolic with elevated LFTs; MRI of the brain is recommended with and without contrast along with EEG; order TSH, vitamin B12 and folic acid levels; patient has been placed on neuro checks every 4 hours; PT/OT consulted We will start patient on IV antibiotics in form of Zosyn and vancomycin for healthcare associated pneumonia; await further recommendations from ID Subjective: 12/25/2020 Patient looks drowsy and oriented to place he knows he is in [facility] but he was disoriented to time. He is oriented to place. He looks not in distress and he denies any specific symptoms. He did well and he had bowel move ment he denies any urinary symptoms. He is not TO be tachypneic or coughing. He did not complain of from chest pain or dyspnea. He is hemodynamically stable. He had a fever of 100.6 yesterday and today. Labs from yesterday showing severe thrombocytopenia with platelet count about 13 K, mild anemia with hemoglobin of 10. Normal WBC. His d-dimer was elevated at 5.8 but CTA of the chest was negative for PE showing bilateral patchy pneumonia. Liver enzymes slightly elevated. Ohcalcitonin is normal at 0.02, C-reactive protein elevated at 5.7. Differential test is negative. Chest x-ray showing acute interstitial pneumonia with CHF in the differential Patient is currently covered with Zosyn and normal saline at 1 30 mL/h We will lower his IV fluids to 75 mL per hour Objective - Vital Signs Vital signs: Vital Signs Temp 98.1 F 12/25/20 12:42 Pulse 77 12/25/20 12:42 Resp 18 12/25/20 12:42 BP 118/91 12/25/20 12:42 Pulse Ox 92 L 12/25/20 12:42 Intake & Output 12/24/20 12/25/20 12/25/20 18:59 06:59 18:59 Intake Total 1070 Balance 1070 Intake: Oral 1070 Other: Voiding Method Bedside Commode Bedside Commode Diaper Diaper # Voids 3 3 # Bowel Movements 3 - Exam -GENERAL: The patient is alert and oriented x2-3, not in any acute distress. Well developed, well nourished. HEENT: Pupils are round and equally reacting to light. EOMI. No scleral icterus. No conjunctival pallor. Normocephalic, atraumatic. No pharyngeal erythema. No thyromegaly. CARDIOVASCULAR: S1 and S2 present. No murmurs, rubs, or gallops. PULMONARY: Chest is clear to auscultation, no wheezing or crackles. ABDOMEN: Soft, nontender, nondistended, normoactive bowel sounds. No palpable organomegaly. MUSCULOSKELETAL: No joint swelling or deformity. EXTREMITIES: No cyanosis, clubbing, or pedal edema. NEUROLOGICAL: Gross neurological examination did not reveal any focal deficits. SKIN: No rashes. no petechiae. - Labs CBC & Chem 7: 12/24/20 05:59 12/25/20 05:20 Labs: Abnormal Lab Results - Last 24 Hours (Table) 12/24/20 12/25/20 Range/Units 05:59 05:20 Sodium 133 L (137-145) mmol/L Potassium 3.2 L (3.5-5.1) mmol/L Chloride 112 H (98-107) mmol/L Carbon Dioxide 20 L (22-30) mmol/L Creatinine 0.59 L (0.66-1.25) mg/dL Calcium 7.0 L (8.4-10.2) mg/dL Vitamin B12 2218.0 H (200.0-944.0) pg/mL Microbiology - Last 24 Hours (Table) 12/23/20 09:45 Blood Culture - Preliminary Blood No Growth after 48 hours 12/23/20 07:20 Blood Culture - Preliminary Blood No Growth after 48 hours Assessment and Plan Assessment: 1. Altered mental statusweakness. Most likely metabolic encephalopathy secondary to infection - Patient is back close to his baseline and is awake and alert and oriented; we will continue to monitor closely with neurology staff on the case 2. Bilateral patchy pneumonia. Cover gram-negative bacteria Continue with Zosyn with infectious disease team on the case. Continue with gentle hydration 3. Critical thrombocytopenia; monitor CBC closely; consult hematology/oncology 4. Transaminitis; mild; we will monitor liver enzymes closely 5. Hypertension; patient not taking any antihypertensive medication; we will monitor blood pressure closely and make further recommendations as needed 6. Hyperlipidemia; not on any statin therapy at this time 7. TIA/CVA; currently not on aspirin or statin therapy 8. Acute myeloid leukemia; consult oncology 9. Depression/anxiety; continue with home dose of Remeron; we will plan to resume Klonopin if mental status remains stable DVT prophylaxis; SCDs CODE STATUS; full code
--- NOTE | 2020-12-25 21:34 | PN ---
PROGRESS NOTE DATE OF SERVICE: 12/25/2020 REASON FOR FOLLOWUP: Fever, possible pneumonia. INTERVAL HISTORY: The patient is afebrile. He did have a low-grade fever of 100.7 this morning. The patient is breathing comfortably. He did have a cough but not bringing up any sputum. No chest pain. No nausea, vomiting. No abdominal pain or diarrhea. PHYSICAL EXAMINATION: Blood pressure 118/91 with a pulse of 77, temperature 98.1. He is 92% on room air. GENERAL DESCRIPTION: General description is an elderly male lying in bed in no distress. RESPIRATORY SYSTEM: Unlabored breathing. Decreased breath sounds at the bases. No wheeze. HEART: S1, S2. Regular rate and rhythm. ABDOMEN: Soft. No tenderness. LABS: BUN of 17, creatinine 0.59. Blood culture has been negative. DIAGNOSTIC IMPRESSION AND PLAN: Patient with a fever and cough concerning for pneumonia seen on the CT. Patient is covered with Zosyn. Try to obtain a sputum sample to narrow down his antibiotics and monitor his clinical course closely. MMODL / IJN: [id number] /
[2020-12-25] MEDS: ZINC OXIDE 20% OINT 28.4 GM TUBE TOPICAL SCH (23:16)
[2020-12-26] MEDS: SODIUM CHLORIDE 0.9% 1,000 ML IV SCH ×2 (01:22→04:41)
[2020-12-26] MEDS: PIPERACILLIN-TAZOBACTAM 3.375 GM in SODIUM CHLORIDE 0.9% 100 ML IVPB SCH ×3 (04:37→19:28)
[2020-12-26] MEDS: THIAMINE 100 MG TAB PEG/G-TUBE SCH (08:36)
[2020-12-26] MEDS: ursodioL 300 MG CAP PEG/G-TUBE SCH ×2 (08:36→19:29)
[2020-12-26] MEDS: FLUoxetine HCL 20 MG CAP PEG/G-TUBE SCH (08:37)
[2020-12-26] MEDS: ACETAMINOPHEN TAB 500 MG TAB PEG/G-TUBE SCH ×2 (08:37→19:29)
[2020-12-26] MEDS: PANTOPRAZOLE SODIUM 40 MG GRANULE PKT PEG/G-TUBE SCH (08:37)
--- NOTE | 2020-12-26 11:36 | P.PN ---
Subjective Progress Note Date: 12/26/20 Objective - Vital Signs Vital signs: Vital Signs Temp 97.8 F 12/26/20 08:04 Pulse 101 H 12/26/20 09:31 Resp 19 12/26/20 09:31 BP 110/60 12/26/20 08:04 Pulse Ox 93 L 12/26/20 08:04 Intake & Output 12/25/20 12/26/20 12/26/20 18:59 06:59 18:59 Intake Total 350 1000 Output Total 4 Balance 350 996 Intake: Intake, IV Titration 900 Amount Sodium Chloride 0.9% 1, 900 000 ml @ 75 mls/hr IV . [id number] [id number] Rx#:[id number] Oral 350 100 Output: Urine 2 Urine/Stool Mix 2 Other: Voiding Method Bedside Commode Bedside Commode Diaper Diaper Diaper # Voids 1 # Bowel Movements 1 - Exam Alert and Oriented Thin Pale No rashes Areas of eccymosis HR: Irr Irr Lungs: Diminished, no increased effort Abd: Soft, ND Ext: No edema Psych: alert and oriented - Labs CBC & Chem 7: 12/24/20 05:59 12/25/20 05:20 Labs: Microbiology - Last 24 Hours (Table) 12/23/20 07:20 Blood Culture - Preliminary Blood No Growth after 72 hours 12/24/20 23:22 Blood Culture - Preliminary Blood No Growth after 24 hours 12/23/20 09:45 Blood Culture - Preliminary Blood No Growth after 48 hours Assessment and Plan (1) Thrombocytopenia Current Visit: Yes Status: Acute Code(s): D69.6 - THROMBOCYTOPENIA, UNSPECIFIED SNOMED Code(s): 262611172 (2) Acute myeloid leukemia Current Visit: No Status: Acute Priority: High Code(s): C92.00 - ACUTE MYELOBLASTIC LEUKEMIA, NOT HAVING ACHIEVED REMISSION SNOMED Code(s): 93983203 Plan: Discussed case in detail with treating oncologist Dr. Sabillon Recent prolonged hospitalization septsis, declining performance requiring ECF Goal at this time is to stabilize patient with supportive transfusions, assess for infectious etiology recurrence and hope to discarge to make appointment with Dr. Sabillon for bone marrow biopsy on next week. Orders placed for the same Await MRI and transfuse one unit Platelets, Irradiated today. As long as stable goal to discharge in time to make appointment as outpatient with Dr. Sabillon for Bone Marrow Biopsy on this week. Hope for Discharge in 24-48 hours. Physician attest: I have completed the full history and physical and agree with above dictation, dictated as a scribe.
--- NOTE | 2020-12-26 14:19 | P.PN ---
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 patient is status post chemo and has recently completed a bone marrow transplant at [facility] in this patient currently at local halfway patient was sent to the ER at [facility] last night for evaluation of abnormal lab values and mental status changes apparently the patient was noticed to be less alert has been complaining of feeling weakness patient on presentation to the hospital did have low-grade fever of 99.4 degrees for night patient do not have any hypoxemia or need for supplemental oxygen patient did have a hemoglobin of 10.2 with a weight of 13.6 on admission that has subsequent normalized to 7.6 BUN/creatinine was mildly elevated liver exams were mildly elevated urine did not show any pyuria urine drug screen was positive for benzo did have a CT of the brain negative for any bleed patient has been sent to the hospital for further work-up ID was consulted because of his elevated white count admission, patient denies having any fever or chills denies having any headache no chest pain no shortness breath he did have occasional cough and is bringing up some sputum no hemoptysis no nausea no vomiting no abdominal pain no diarrhea 12/24/2020 Patient is seen and evaluated in room at bedside; remains pleasantly confused; vital signs are stable CTA chest done which reveals patchy bilateral pneumonia and new compression fracture off T8 vertebra Patient has been evaluated by neurology and altered mental status is deemed toxicmetabolic with elevated LFTs; MRI of the brain is recommended with and without contrast along with EEG; order TSH, vitamin B12 and folic acid levels; patient has been placed on neuro checks every 4 hours; PT/OT consulted We will start patient on IV antibiotics in form of Zosyn and vancomycin for healthcare associated pneumonia; await further recommendations from ID Subjective: 12/25/2020 Patient looks drowsy and oriented to place he knows he is in [facility] but he was disoriented to time. He is oriented to place. He looks not in distress and he denies any specific symptoms. He did well and he had bowel move ment he denies any urinary symptoms. He is not TO be tachypneic or coughing. He did not complain of from chest pain or dyspnea. He is hemodynamically stable. He had a fever of 100.6 yesterday and today. Labs from yesterday showing severe thrombocytopenia with platelet count about 13 K, mild anemia with hemoglobin of 10. Normal WBC. His d-dimer was elevated at 5.8 but CTA of the chest was negative for PE showing bilateral patchy pneumonia. Liver enzymes slightly elevated. Ohcalcitonin is normal at 0.02, C-reactive protein elevated at 5.7. Differential test is negative. Chest x-ray showing acute interstitial pneumonia with CHF in the differential Patient is currently covered with Zosyn and normal saline at 1 30 mL/h We will lower his IV fluids to 75 mL per hour 12/26/20 Patient is awake and alert, questions appropriately and follows commands. Further workup for his altered mental status on admission included MRI of the brain and EEG are pending His platelets was low on admission, repeat labs from today are still pending. Oncology team recommended in one unit of irradiated platelet transfusion today Hemodynamically he is a stable. He had low-grade fever yesterday, no more fever today. His slight tachycardic and he is saturating 92% on 3 L oxygen via nasal cannula. He is still coughing and no significant dyspnea while his ascending embedded however is generally weak and he will need to go to subacute rehab upon discharge. It is currently is covered with Zosyn. We will order chest x-ray to be repeated tomorrow Repeat labs tomorrow We will discuss with hematology team about his abnormal iron studies. Objective - Vital Signs Vital signs: Vital Signs Temp 98.3 F 12/26/20 12:13 Pulse 93 12/26/20 12:13 Resp 16 12/26/20 12:13 BP 93/57 12/26/20 12:13 Pulse Ox 92 L 12/26/20 12:13 Intake & Output 12/25/20 12/26/20 12/26/20 18:59 06:59 18:59 Intake Total 350 1000 Output Total 4 Balance 350 996 Intake: Intake, IV Titration 900 Amount Sodium Chloride 0.9% 1, 900 000 ml @ 75 mls/hr IV . [id number] [facility] Rx#:[id number] Oral 350 100 Output: Urine 2 Urine/Stool Mix 2 Other: Voiding Method Bedside Commode Bedside Commode Diaper Diaper Diaper # Voids 1 # Bowel Movements 1 - Exam -GENERAL: The patient is alert and oriented x2-3, not in any acute distress. Well developed, well nourished. HEENT: Pupils are round and equally reacting to light. EOMI. No scleral icterus. No conjunctival pallor. Normocephalic, atraumatic. No pharyngeal erythema. No thyromegaly. CARDIOVASCULAR: S1 and S2 present. No murmurs, rubs, or gallops. PULMONARY: Chest is clear to auscultation, no wheezing or crackles. ABDOMEN: Soft, nontender, nondistended, normoactive bowel sounds. No palpable organomegaly. MUSCULOSKELETAL: No joint swelling or deformity. EXTREMITIES: No cyanosis, clubbing, or pedal edema. NEUROLOGICAL: Gross neurological examination did not reveal any focal deficits. SKIN: No rashes. no petechiae. - Labs CBC & Chem 7: 12/24/20 05:59 12/25/20 05:20 Labs: Microbiology - Last 24 Hours (Table) 12/23/20 09:45 Blood Culture - Preliminary Blood No Growth after 72 hours 12/23/20 07:20 Blood Culture - Preliminary Blood No Growth after 72 hours 12/24/20 23:22 Blood Culture - Preliminary Blood No Growth after 24 hours Assessment and Plan Assessment: 1. Altered mental statusweakness. Most likely metabolic encephalopathy secondary to infection - Patient is back close to his baseline and is awake and alert and oriented; we will continue to monitor closely with neurology staff on the case 2. Bilateral patchy pneumonia. Cover gram-negative bacteria Continue with Zosyn with infectious disease team on the case. Continue with gentle hydration 3. Critical thrombocytopenia; monitor CBC closely; consult hematology/oncology getting 1 unit of platelet transfusions.. 4. Transaminitis; mild; we will monitor liver enzymes closely 5. Hypertension; patient not taking any antihypertensive medication; we will monitor blood pressure closely and make further recommendations as needed 6. Hyperlipidemia; not on any statin therapy at this time 7. TIA/CVA; currently not on aspirin or statin therapy 8. Acute myeloid leukemia; consult oncology 9. Depression/anxiety; continue with home dose of Remeron; we will plan to resume Klonopin if mental status remains stable 10. Possible iron overload, we will discuss the case with hematology/oncology team DVT prophylaxis; SCDs CODE STATUS; full code
[2020-12-26 15:17] LABS: African American GFR (CKD) 129.1 (60.0-200.0); Albumin 1.5 g/dL (3.80-4.90); Albumin/Globulin Ratio 0.44 (1.60-3.17); Anion Gap 2.9 mmol/L (4.00-12.00); Bilirubin, Conjugated 0.6 mg/dL (0.20-0.40); Bilirubin,Unconjugated 0.2 mg/dL; C Reactive Protein 11.7 mg/dL (0.0-0.8); Calcium 6.8 mg/dL (8.7-10.3); Carbon Dioxide 21.1 mmol/L (21.6-31.8); Globulin 3.4 g/dL (1.6-3.3); Magnesium 1.5 mg/dL (1.5-2.4); Non-African American GFR(CKD) 111.3 (60.0-200.0); Potassium 3.4 mmol/L (3.5-5.5); Total Bilirubin 0.8 mg/dL (0.2-1.2); Total Protein 4.9 g/dL (6.2-8.2)
--- NOTE | 2020-12-26 15:53 | MR ---
EXAMINATION TYPE: MR brain wo/w con DATE OF EXAM: 12/26/2020 COMPARISON: CT brain from 3 days ago. HISTORY: Altered mental status. R/O mets. Hx of leukemia. TECHNIQUE: Multiplanar, multisequence images of the brain and brainstem is performed without and with IV contras t, utilizing 5.5 mL intravenous Gadavist . FINDINGS: Diffusion weighted images demonstrate no evidence of a recent infarct or other diffusion ab normality. There is mild diffuse ventricular and sulcal prominence. There are multifocal and conflue nt areas of T2 hyperintensity seen throughout the white matter bilaterally greatest at periventricula r levels. Lesions are nonspecific in appearance and distribution. Midline structures demonstrate normal morphology. The craniocervical junction appears within normal limits. Post contrast images demonstrate no suspicious enhancing intraparenchymal masses or nodular asymmetric meningeal enhancement. The dural venous sinuses appear patent. Jmyg-lq-opgplzif mucosal th ickening inferior maxillary sinuses remains present. Moderate to severe mucosal thickening and some f luid in the bilateral ethmoid sinuses remains present. Mild mucosal thickening and patchy fluid left frontal sinus again seen. The globes are intact bilaterally. IMPRESSION: No suspicious enhancement to suggest metastatic disease to the brain. Mild diffuse ag e-related cerebral atrophy and moderate to advanced chronic small vessel ischemic change redemonstrat ed. Acute on chronic paranasal sinus disease redemonstrated.
[2020-12-26] MEDS: POTASSIUM CHLORIDE 20 MEQ in WATER FOR INJECTION 1 100ML.BAG IVPB SCH ×2 (16:24→18:57)
--- NOTE | 2020-12-26 19:19 | P.PN ---
Subjective Progress Note Date: 12/26/20 12/26/2020: Patient is laying comfortably in the bed. Offers no complaints. Patient states that he has history of anxiety and depression since he was age 14. Once he started the right combination of medications, it has improved. Patient denies headache. Offers no complaints. 12/25/2020: Patient initially seen by Dr. Gorge Clark yesterday. Please refer to his note for detail. Patient is a 70-year-old male with history of leukemia, status post chemotherapy and bone marrow transplant. Patient has history of hemorrhagic stroke, acute myeloblastic leukemia, chronic thrombocytopenia, status post chemo therapy, hypertension, hyperlipidemia and anxiety came to the hospital on 12/21/2020 with altered mental status. Per EMR stated that the patient has acute myeloblastic leukemia diagnosed in 12/2019 and this patient the status post chemotherapy and recently has completed bone marrow transplant at [facility]. Patient home medication per EMR is a acyclovir 800 mg 1 tablet twice a day, thiamine 100 mg daily, Remeron 50 mg daily, Klonopin 0.5 mg daily, Zoloft 60 mg daily,Ursodiol As per patient's report (Marley): the patient He had bone marrow transplant in 05/2020. Last chemotherapy 05/2020. He was On Tacrolimus and was taken off end of 10/2020 since his levels are off. Also Per Oncology note his levels were high in october. THe patient was confused since 06/2020 and has been fluctuation but worse yesterday (but she has not talked to him in last few days and not seen in last few weeks). Per he was confused since June2020 and liver was elevated and it fluctuates. Patient does not have history of seizures. Patient had hemorrhagic stroke (possible 2004/2005) and was felt due to uncontrolled hypertension but had no neurological deficit. He has no intervention for hemorrhagic stroke. He resides currently in a nursing facility. Patient at present is slightly coughing. Denies any headache, appears no complaints. Objective - Vital Signs Vital signs: Vital Signs Temp 97.9 F 12/26/20 18:58 Pulse 103 H 12/26/20 18:58 Resp 20 12/26/20 18:58 BP 111/69 12/26/20 18:58 Pulse Ox 93 L 12/26/20 18:58 Intake & Output 12/26/20 12/26/20 12/27/20 06:59 18:59 06:59 Intake Total 1000 1520 Output Total 4 Balance 996 1520 Weight 54.431 kg Intake: Intake, IV Titration 900 300 Amount Piperacillin-Tazobactam 3 100 .375 gm In Sodium Chloride 0.9% 100 ml @ 25 mls/hr IVPB Q8H [facility] Rx#: [id number] Potassium Chloride 20 meq 200 In Water For Injection 1 100ml.bag @ 50 mls/hr IVPB Q2H [facility] Rx#: [id number] Sodium Chloride 0.9% 1, 900 000 ml @ 75 mls/hr IV . [id number] [facility] Rx#:[id number] Oral 100 860 Blood Product 360 Platelet Pheresis Pas 360 Psoralen Unit [id number] Output: Urine 2 Urine/Stool Mix 2 Other: Voiding Method Bedside Commode Diaper Diaper # Voids 5 - Exam Patient is an elderly male, in no acute distress. Patient appears more comfortable. Patient is alert awake oriented to time place and person. Patient knows it is S 2020 that he is in [facility] in [facility]. Patient can name and repeat very well. Speech and language functions are normal. Attention, concentration and fund of knowledge is adequate. On cranial examination, pupils are round and reacting to light, visual cassidy are full on confrontation, extraocular muscles are intact with no nystagmus. Patient's sclera is mildly icteric. Face is symmetric, tongue protrudes to the midline. Palatal elevation and sensation normal, hearing is moderately decreased and shoulder shrug normal, facial sensation normal. Shoulder shrug normal. On muscle strength testing, there is no pronator drift and the strength is normal in arms and legs distally and proximally. Deep tendon reflexes are hypoactive and plantars downgoing. Sensory to touch is equal with no neglect. Cerebellar function showed no ataxia for [id number]-uc-[id number] testing. No dysdiadochokinesia. Tone and bulk of muscles normal. Gait not checked. On general examination, there is no carotid bruit or murmur, S1-S2 audible. Abdomen is soft nontender. Chest is clear. Peripheral pulses are present. Very mild peripheral edema. - Labs CBC & Chem 7: 12/24/20 05:59 12/26/20 06:23 Labs: Abnormal Lab Results - Last 24 Hours (Table) 12/26/20 12/26/20 Range/Units 06:23 16:30 Potassium 3.4 L (3.5-5.5) mmol/L Chloride 115 H (96-109) mmol/L Carbon Dioxide 21.1 L (21.6-31.8) mmol/L Anion Gap 2.90 L (4.00-12.00) mmol/L Creatinine 0.5 L (0.6-1.5) mg/dL BUN/Creatinine Ratio 32.00 H (12.00-20.00) Ratio Calcium 6.8 L (8.7-10.3) mg/dL Conjugated Bilirubin 0.60 H (0.20-0.40) mg/dL AST 170 H (14-35) U/L ALT 86 H (10-49) U/L Alkaline Phosphatase 337 H (41-126) U/L C-Reactive Protein 11.7 H (0.0-0.8) mg/dL Total Protein 4.9 L (6.2-8.2) g/dL Albumin 1.50 L (3.80-4.90) g/dL Globulin 3.4 H (1.6-3.3) g/dL Albumin/Globulin Ratio 0.44 L (1.60-3.17) g/dL Coronavirus (PCR) Detected A (Not Detectd) Microbiology - Last 24 Hours (Table) 12/23/20 09:45 Blood Culture - Preliminary Blood No Growth after 72 hours 12/23/20 07:20 Blood Culture - Preliminary Blood No Growth after 72 hours 12/24/20 23:22 Blood Culture - Preliminary Blood No Growth after 24 hours Assessment and Plan Assessment: * Encephalopathy probably due to toxic-metabolic encephalopathy. Per he had confusion since 06/2020 and it has been fluctuating and his LFT's were also elevated. No evidence of brain metastasis as per MRI. * Elevated LFT's (most current 170/86)--trending down. * History of hemorrhagic stroke (per thinks possible in 2004 or 2005) and was felt due to uncontrolled hypertension and no intervention required) without focal deficits. * Acute myeloblastic leukemia (diagnosed in 12/2019) status post chemotherapy (last on05/2020) and bone marrow (05/2020). Had elevated Tacrolimus in 10/2020 and was stopped. * Chronic thrombocytopenia * History of hypertension * Hyperlipidemia * History of an anxiety and depression Plan: MRI of the brain with and without revealed no suspicious enhancement to suggest metastatic disease to the brain. Mild diffuse age-related cerebral atrophy and moderate to advanced chronic small vessel ischemic change redemonstrated. Acute on chronic paranasal sinus disease redemonstrated. EEG revealed mild background slowing and disorganization, suggestive of mild encephalopathy. No epileptiform activity was seen. No indication for AED. TSH 2.45, vitamin B12 2218, folate level 20.9. Consulted PT and OT Infection disease on board Oncology team is on board We'll defer the rest of the medical management to primary team. We will sign off. Please reconsult neurology if any concerns.
--- NOTE | 2020-12-26 19:23 | EEG ---
ELECTROENCEPHALOGRAM REPORT DATE OF SERVICE: 12/26/2020 PREAMBLE: This is a 70-year-old male with altered mental status. This is a 21 channel routine EEG recording in a patient utilizing 10/20 international system with referential and bipolar montages. The background consists of somewhat disorganized, mixed frequencies of moderate amplitude activity in mixed alpha and theta range. Significant myogenic activity is seen in bilateral hemispheric regions, left much worse than right. Different stages of sleep were not seen. Photic driving response was not seen. Background does not seem to be clearly reactive to eye opening or closing. EKG channel showed no obvious arrhythmia. IMPRESSION: Mildly abnormal EEG due to slightly disorganized and slow background activity. This is suggestive of generalized cerebral dysfunction as can be seen with toxic metabolic encephalopathy or due to medication effect. The EEG is limited because of significant myogenic activity during most of the study. If your suspicion for seizures is high, suggest prolonged, sleep-deprived EEG. MMREYNALDOL / IJN: [id number] /
[2020-12-26] MEDS: DEXAMETHASONE SOD PHOSPHATE 10 MG/ML 1 ML VIAL IV SCH (19:29)
[2020-12-26] MEDS: CHOLECALCIFEROL 25 MCG (1000 IU) TABLET PO SCH (19:29)
[2020-12-26] MEDS: ASCORBIC ACID 500 MG TAB PO SCH (19:29)
[2020-12-26] MEDS: ZINC SULFATE 220 MG CAP PO SCH (19:31)
[2020-12-26] MEDS: ZINC OXIDE 20% OINT 28.4 GM TUBE TOPICAL SCH (19:31)
--- NOTE | 2020-12-26 19:52 | PN ---
PROGRESS NOTE DATE OF SERVICE: 12/26/2020 REASON FOR FOLLOWUP: Pneumonia. INTERVAL HISTORY: The patient is afebrile. The patient is breathing slightly comfortably. Denies having any chest pain. He did have a cough but not bringing any sputum. No nausea, vomiting, abdominal pain or diarrhea. PHYSICAL EXAMINATION: Blood pressure 102/64 with a pulse of 98. Temperature is 97.8. He is 94% on 2 L nasal cannula. General description is an elderly male up in the chair in no distress. Respiratory system: Unlabored breathing, decreased breath sounds in the base, with no wheeze. Heart S1, S2. Regular rate and rhythm. Abdomen soft, no tenderness. LABS: BUN of 16, creatinine 0.5. Blood culture has been negative. No sputum has been collected. DIAGNOSTIC IMPRESSION AND PLAN: Patient with fever, concerning for pneumonia responded to Cefepime. Try to obtain a sputum to narrow down his antibiotics. Continue supportive care. MMODL / IJN: [id number] /
[2020-12-27] MEDS: MORPHINE SULFATE 4 MG/ML SYRINGE IV PRN (04:35)
[2020-12-27] MEDS: PIPERACILLIN-TAZOBACTAM 3.375 GM in SODIUM CHLORIDE 0.9% 100 ML IVPB SCH ×2 (04:36→13:00)
[2020-12-27] MEDS: SODIUM CHLORIDE 0.9% 1,000 ML IV SCH ×2 (04:41→11:13)
[2020-12-27 07:22] LABS: INR 1.3 (<1.2); Prothrombin Time 13.2 sec (9.0-12.0)
[2020-12-27 07:57] LABS: Anisocytosis Moderate; HCT 35.2 % (39.0-53.0); HGB 10.9 gm/dL (13.0-17.5); Hypochromasia Marked; MCH 36.4 pg (25.0-35.0); MCHC 30.9 g/dL (31.0-37.0); Macrocytosis Marked; Mean Platelet Volume 9.3; RBC 2.99 m/uL (4.30-5.90); WBC 8.2 k/uL (3.8-10.6)
[2020-12-27 07:59] LABS: MCV 117.5 fL (80.0-100.0); Platelet Count 25 k/uL (150-450)
--- NOTE | 2020-12-27 08:34 | XR ---
EXAMINATION TYPE: XR chest 1V DATE OF EXAM: 12/27/2020 COMPARISON: 12/24/2020 INDICATION: Short of breath, atypical pneumonia TECHNIQUE: Single frontal view of the chest is obtained. FINDINGS: The heart size is normal. The pulmonary vasculature is prominent. Diffuse infiltrate is developed throughout the bilateral lung cassidy. Findings can be compatible with atypical pneumonia. IMPRESSION: 1. Diffuse increasing bilateral lung infiltrates can be compatible with atypical pneumonia.
[2020-12-27] MEDS: DEXAMETHASONE SOD PHOSPHATE 10 MG/ML 1 ML VIAL IV SCH ×2 (09:24→20:15)
[2020-12-27] MEDS: CHOLECALCIFEROL 25 MCG (1000 IU) TABLET PO SCH (09:25)
[2020-12-27] MEDS: ACETAMINOPHEN TAB 500 MG TAB PEG/G-TUBE SCH ×2 (09:25→20:16)
[2020-12-27] MEDS: THIAMINE 100 MG TAB PEG/G-TUBE SCH (09:25)
[2020-12-27] MEDS: FLUoxetine HCL 20 MG CAP PEG/G-TUBE SCH (09:26)
[2020-12-27] MEDS: ursodioL 300 MG CAP PEG/G-TUBE SCH ×2 (09:26→20:16)
[2020-12-27] MEDS: ASCORBIC ACID 500 MG TAB PO SCH (09:26)
[2020-12-27] MEDS: PANTOPRAZOLE SODIUM 40 MG GRANULE PKT PEG/G-TUBE SCH (09:26)
[2020-12-27] MEDS: ZINC SULFATE 220 MG CAP PO SCH (09:27)
[2020-12-27 09:49] LABS: Band Neutrophils % 2 %; Metamyelocytes # (M) 0.16 k/uL (0); Metamyelocytes % 2 %; Monocytes # (M) 0.16 k/uL (0-1.0); Myelocytes # (M) 0.08 k/uL (0); Myelocytes % 1 %; Neutrophils % (M) 66 %; Nucleated Red Blood Cells 0 /100 WBC (0-0); Total Cells Counted 200
[2020-12-27] MEDS ORDERED: SODIUM CHLORIDE 0.9% 1,000 ML IV ONE (10:10)
[2020-12-27 10:18] LABS: Poikilocytosis (M) Present
--- NOTE | 2020-12-27 12:51 | P.PN ---
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 patient is status post chemo and has recently completed a bone marrow transplant at [facility] in this patient currently at local detention patient was sent to the ER at [facility] last night for evaluation of abnormal lab values and mental status changes apparently the patient was noticed to be less alert has been complaining of feeling weakness patient on presentation to the hospital did have low-grade fever of 99.4 degrees for night patient do not have any hypoxemia or need for supplemental oxygen patient did have a hemoglobin of 10.2 with a weight of 13.6 on admission that has subsequent normalized to 7.6 BUN/creatinine was mildly elevated liver exams were mildly elevated urine did not show any pyuria urine drug screen was positive for benzo did have a CT of the brain negative for any bleed patient has been sent to the hospital for further work-up ID was consulted because of his elevated white count admission, patient denies having any fever or chills denies having any headache no chest pain no shortness breath he did have occasional cough and is bringing up some sputum no hemoptysis no nausea no vomiting no abdominal pain no diarrhea 12/24/2020 Patient is seen and evaluated in room at bedside; remains pleasantly confused; vital signs are stable CTA chest done which reveals patchy bilateral pneumonia and new compression fracture off T8 vertebra Patient has been evaluated by neurology and altered mental status is deemed toxicmetabolic with elevated LFTs; MRI of the brain is recommended with and without contrast along with EEG; order TSH, vitamin B12 and folic acid levels; patient has been placed on neuro checks every 4 hours; PT/OT consulted We will start patient on IV antibiotics in form of Zosyn and vancomycin for healthcare associated pneumonia; await further recommendations from ID Subjective: 12/25/2020 Patient looks drowsy and oriented to place he knows he is in [facility] but he was disoriented to time. He is oriented to place. He looks not in distress and he denies any specific symptoms. He did well and he had bowel move ment he denies any urinary symptoms. He is not TO be tachypneic or coughing. He did not complain of from chest pain or dyspnea. He is hemodynamically stable. He had a fever of 100.6 yesterday and today. Labs from yesterday showing severe thrombocytopenia with platelet count about 13 K, mild anemia with hemoglobin of 10. Normal WBC. His d-dimer was elevated at 5.8 but CTA of the chest was negative for PE showing bilateral patchy pneumonia. Liver enzymes slightly elevated. Ohcalcitonin is normal at 0.02, C-reactive protein elevated at 5.7. Differential test is negative. Chest x-ray showing acute interstitial pneumonia with CHF in the differential Patient is currently covered with Zosyn and normal saline at 1 30 mL/h We will lower his IV fluids to 75 mL per hour 12/26/20 Patient is awake and alert, questions appropriately and follows commands. Further workup for his altered mental status on admission included MRI of the brain and EEG are pending His platelets was low on admission, repeat labs from today are still pending. Oncology team recommended in one unit of irradiated platelet transfusion today Hemodynamically he is a stable. He had low-grade fever yesterday, no more fever today. His slight tachycardic and he is saturating 92% on 3 L oxygen via nasal cannula. He is still coughing and no significant dyspnea while his ascending embedded however is generally weak and he will need to go to subacute rehab upon discharge. It is currently is covered with Zosyn. We will order chest x-ray to be repeated tomorrow Repeat labs tomorrow We will discuss with hematology team about his abnormal iron studies. 12/27/20 Patient yesterday, test came back positive and patient was started on dexamethasone and multiple vitamins. Chest x-ray today showing worsening bilateral infiltrates and he was hypotensive with blood pressure 81/50, patient is receiving 1 L bolus of normal saline. His oxygen saturation is 90s on higher doses of oxygen at 15 L/m via high flow nasal cannula. Early to yesterday slight tachycardic and 106 and he had no fever since yesterday Other than that patient is awake and alert, taken appropriately, is not significantly dyspneic or tachypneic. Denies chest pain or dizziness. Patient informed about his diagnosis, he is willing to talk to his family by himself. Platelets improved to 20 5K today after 1 unit of platelets transfusion. Stable at 10.9 and WBC normal 8.2. D-dimer slightly elevated at 3.2. Currently he is on dexamethasone 6 mg, vitamin C, D and zinc. Also is a normal- sized 35 mm per hour plus normal saline boluses. Also he is on Zosyn Objective - Vital Signs Vital signs: Vital Signs Temp 98.3 F 12/27/20 09:58 Pulse 106 H 12/27/20 11:02 Resp 20 12/27/20 10:19 BP 81/50 12/27/20 12:18 Pulse Ox 89 L 12/27/20 12:18 Intake & Output 12/26/20 12/27/20 12/27/20 18:59 06:59 18:59 Intake Total 1520 120 Balance 1520 120 Weight 54.431 kg Intake: Intake, IV Titration 300 Amount Piperacillin-Tazobactam 3 100 .375 gm In Sodium Chloride 0.9% 100 ml @ 25 mls/hr IVPB Q8H RAMEZ Rx#: [id number] Potassium Chloride 20 meq 200 In Water For Injection 1 100ml.bag @ 50 mls/hr IVPB Q2H RAMEZ Rx#: [id number] Oral 860 120 Blood Product 360 Platelet Pheresis Pas 360 Psoralen Unit [id number] Other: Voiding Method Diaper Diaper Diaper # Voids 5 0 # Bowel Movements 1 - Exam -GENERAL: The patient is alert and oriented x2-3, not in any acute distress. Well developed, well nourished. HEENT: Pupils are round and equally reacting to light. EOMI. No scleral icterus. No conjunctival pallor. Normocephalic, atraumatic. No pharyngeal erythema. No thyromegaly. CARDIOVASCULAR: S1 and S2 present. No murmurs, rubs, or gallops. PULMONARY: Chest is clear to auscultation, no wheezing or crackles. ABDOMEN: Soft, nontender, nondistended, normoactive bowel sounds. No palpable organomegaly. MUSCULOSKELETAL: No joint swelling or deformity. EXTREMITIES: No cyanosis, clubbing, or pedal edema. NEUROLOGICAL: Gross neurological examination did not reveal any focal deficits. SKIN: No rashes. no petechiae. - Labs CBC & Chem 7: 12/27/20 06:17 12/26/20 22:59 Labs: Abnormal Lab Results - Last 24 Hours (Table) 12/26/20 12/26/20 12/27/20 Range/Units 06:23 16:30 06:17 RBC 2.99 L (4.30-5.90) m/uL Hgb 10.9 L (13.0-17.5) gm/dL Hct 35.2 L (39.0-53.0) % MCV 117.5 H D (80.0-100.0) fL MCH 36.4 H (25.0-35.0) pg MCHC 30.9 L (31.0-37.0) g/dL RDW 21.0 H (11.5-15.5) % Plt Count 25 L D (150-450) k/uL Metamyelocytes # (Man) 0.16 H (0) k/uL Myelocytes # (Manual) 0.08 H (0) k/uL Macrocytosis Marked A PT (9.0-12.0) sec INR (<1.2) D-Dimer (<0.60) mg/L FEU Potassium 3.4 L (3.5-5.5) mmol/L Chloride 115 H (96-109) mmol/L Carbon Dioxide 21.1 L (21.6-31.8) mmol/L Anion Gap 2.90 L (4.00-12.00) mmol/L Creatinine 0.5 L (0.6-1.5) mg/dL BUN/Creatinine Ratio 32.00 H (12.00-20.00) Ratio Calcium 6.8 L (8.7-10.3) mg/dL Conjugated Bilirubin 0.60 H (0.20-0.40) mg/dL AST 170 H (14-35) U/L ALT 86 H (10-49) U/L Alkaline Phosphatase 337 H (41-126) U/L C-Reactive Protein 11.7 H (0.0-0.8) mg/dL Total Protein 4.9 L (6.2-8.2) g/dL Albumin 1.50 L (3.80-4.90) g/dL Globulin 3.4 H (1.6-3.3) g/dL Albumin/Globulin Ratio 0.44 L (1.60-3.17) g/dL Coronavirus (PCR) Detected A (Not Detectd) 12/27/20 Range/Units 06:17 RBC (4.30-5.90) m/uL Hgb (13.0-17.5) gm/dL Hct (39.0-53.0) % MCV (80.0-100.0) fL MCH (25.0-35.0) pg MCHC (31.0-37.0) g/dL RDW (11.5-15.5) % Plt Count (150-450) k/uL Metamyelocytes # (Man) (0) k/uL Myelocytes # (Manual) (0) k/uL Macrocytosis PT 13.2 H (9.0-12.0) sec INR 1.3 H (<1.2) D-Dimer 3.05 H (<0.60) mg/L FEU Potassium (3.5-5.5) mmol/L Chloride (96-109) mmol/L Carbon Dioxide (21.6-31.8) mmol/L Anion Gap (4.00-12.00) mmol/L Creatinine (0.6-1.5) mg/dL BUN/Creatinine Ratio (12.00-20.00) Ratio Calcium (8.7-10.3) mg/dL Conjugated Bilirubin (0.20-0.40) mg/dL AST (14-35) U/L ALT (10-49) U/L Alkaline Phosphatase (41-126) U/L C-Reactive Protein (0.0-0.8) mg/dL Total Protein (6.2-8.2) g/dL Albumin (3.80-4.90) g/dL Globulin (1.6-3.3) g/dL Albumin/Globulin Ratio (1.60-3.17) g/dL Coronavirus (PCR) (Not Detectd) Microbiology - Last 24 Hours (Table) 12/23/20 09:45 Blood Culture - Preliminary Blood No Growth after 96 hours 12/23/20 07:20 Blood Culture - Preliminary Blood No Growth after 96 hours 12/24/20 23:22 Blood Culture - Preliminary Blood No Growth after 48 hours Assessment and Plan Assessment: 1. Altered mental statusweakness. Most likely metabolic encephalopathy secondary to infection - Patient is back close to his baseline and is awake and alert and oriented; we will continue to monitor closely with neurology staff on the case 2. Acute bilateral cold feet pneumonia with acute hypoxic respiratory failure. B Continue with dexamethasone, multiple vitamins, vitamin C, D and zinc. Pulmonary and infectious disease consult 3. Critical thrombocytopenia; monitor CBC closely; consult hematology/oncology status post 1 unit of platelet transfusions.. 4. Transaminitis; mild; we will monitor liver enzymes closely 5. Hypertension; patient not taking any antihypertensive medication; we will monitor blood pressure closely and make further recommendations as needed 6. Hyperlipidemia; not on any statin therapy at this time 7. TIA/CVA; currently not on aspirin or statin therapy 8. Acute myeloid leukemia; consult oncology 9. Depression/anxiety; continue with home dose of Remeron; we will plan to resume Klonopin if mental status remains stable 10. Possible iron overload, we will discuss the case with hematology/oncology team DVT prophylaxis; SCDs CODE STATUS; full code
--- NOTE | 2020-12-27 18:20 | P.PN ---
Subjective Progress Note Date: 12/27/20 Principal diagnosis: Leukemia Patient is now COVID Positive, we have discussed case thoroughlky with primary librarian special library at [facility] Dr. Sabillon and further labs ordered. If stabilizes patient can be transferred to [place] per Dr. Sabillon, discussed with Dr. Raymundo. Objective - Vital Signs Vital signs: Vital Signs Temp 98.3 F 12/27/20 09:58 Pulse 106 H 12/27/20 11:02 Resp 20 12/27/20 10:19 BP 81/50 12/27/20 12:18 Pulse Ox 89 L 12/27/20 12:18 Intake & Output 12/26/20 12/27/20 12/27/20 18:59 06:59 18:59 Intake Total 1520 120 Balance 1520 120 Weight 54.431 kg Intake: Intake, IV Titration 300 Amount Piperacillin-Tazobactam 3 100 .375 gm In Sodium Chloride 0.9% 100 ml @ 25 mls/hr IVPB Q8H RAMEZ Rx#: [id number] Potassium Chloride 20 meq 200 In Water For Injection 1 100ml.bag @ 50 mls/hr IVPB Q2H RAMEZ Rx#: [id number] Oral 860 120 Blood Product 360 Platelet Pheresis Pas 360 Psoralen Unit [id number] Other: Voiding Method Diaper Diaper Diaper # Voids 5 0 # Bowel Movements 1 - Exam Alert and Oriented Thin Pale No rashes Areas of eccymosis HR: Irr Irr Lungs: Diminished, no increased effort Abd: Soft, ND Ext: No edema Psych: alert and oriented - Labs CBC & Chem 7: 12/27/20 06:17 12/26/20 22:59 Labs: Abnormal Lab Results - Last 24 Hours (Table) 12/26/20 12/26/20 12/27/20 Range/Units 06:23 16:30 06:17 RBC 2.99 L (4.30-5.90) m/uL Hgb 10.9 L (13.0-17.5) gm/dL Hct 35.2 L (39.0-53.0) % MCV 117.5 H D (80.0-100.0) fL MCH 36.4 H (25.0-35.0) pg MCHC 30.9 L (31.0-37.0) g/dL RDW 21.0 H (11.5-15.5) % Plt Count 25 L D (150-450) k/uL Metamyelocytes # (Man) 0.16 H (0) k/uL Myelocytes # (Manual) 0.08 H (0) k/uL Macrocytosis Marked A PT (9.0-12.0) sec INR (<1.2) D-Dimer (<0.60) mg/L FEU Potassium 3.4 L (3.5-5.5) mmol/L Chloride 115 H (96-109) mmol/L Carbon Dioxide 21.1 L (21.6-31.8) mmol/L Anion Gap 2.90 L (4.00-12.00) mmol/L Creatinine 0.5 L (0.6-1.5) mg/dL BUN/Creatinine Ratio 32.00 H (12.00-20.00) Ratio Calcium 6.8 L (8.7-10.3) mg/dL Conjugated Bilirubin 0.60 H (0.20-0.40) mg/dL AST 170 H (14-35) U/L ALT 86 H (10-49) U/L Alkaline Phosphatase 337 H (41-126) U/L C-Reactive Protein 11.7 H (0.0-0.8) mg/dL Total Protein 4.9 L (6.2-8.2) g/dL Albumin 1.50 L (3.80-4.90) g/dL Globulin 3.4 H (1.6-3.3) g/dL Albumin/Globulin Ratio 0.44 L (1.60-3.17) g/dL Coronavirus (PCR) Detected A (Not Detectd) 12/27/20 Range/Units 06:17 RBC (4.30-5.90) m/uL Hgb (13.0-17.5) gm/dL Hct (39.0-53.0) % MCV (80.0-100.0) fL MCH (25.0-35.0) pg MCHC (31.0-37.0) g/dL RDW (11.5-15.5) % Plt Count (150-450) k/uL Metamyelocytes # (Man) (0) k/uL Myelocytes # (Manual) (0) k/uL Macrocytosis PT 13.2 H (9.0-12.0) sec INR 1.3 H (<1.2) D-Dimer 3.05 H (<0.60) mg/L FEU Potassium (3.5-5.5) mmol/L Chloride (96-109) mmol/L Carbon Dioxide (21.6-31.8) mmol/L Anion Gap (4.00-12.00) mmol/L Creatinine (0.6-1.5) mg/dL BUN/Creatinine Ratio (12.00-20.00) Ratio Calcium (8.7-10.3) mg/dL Conjugated Bilirubin (0.20-0.40) mg/dL AST (14-35) U/L ALT (10-49) U/L Alkaline Phosphatase (41-126) U/L C-Reactive Protein (0.0-0.8) mg/dL Total Protein (6.2-8.2) g/dL Albumin (3.80-4.90) g/dL Globulin (1.6-3.3) g/dL Albumin/Globulin Ratio (1.60-3.17) g/dL Coronavirus (PCR) (Not Detectd) Microbiology - Last 24 Hours (Table) 12/23/20 09:45 Blood Culture - Preliminary Blood No Growth after 96 hours 12/23/20 07:20 Blood Culture - Preliminary Blood No Growth after 96 hours 12/24/20 23:22 Blood Culture - Preliminary Blood No Growth after 48 hours Assessment and Plan (1) Thrombocytopenia Current Visit: Yes Status: Acute Code(s): D69.6 - THROMBOCYTOPENIA, UNSPECIFIED SNOMED Code(s): 569054278 (2) Acute myeloid leukemia Current Visit: No Status: Acute Priority: High Code(s): C92.00 - ACUTE MYELOBLASTIC LEUKEMIA, NOT HAVING ACHIEVED REMISSION SNOMED Code(s): 57552627 Plan: Discussed case in detail with treating oncologist Dr. Sabillon Recent prolonged hospitalization septsis, declining performance requiring ECF Goal at this time is to stabilize patient with supportive transfusions, assess f or infectious etiology recurrence and hope to discarge to make appointment with Dr. Sabillon for bone marrow biopsy on next week. Orders placed for the same Continue monitoring daily CBC, CMP and monitor for sepsis and DIC PCR on peripheral blood ordered for HHV6, CMV, Adenovirus, and EBV COVID Positive and respiratory distress - Pulmonary following. Mix Crusher Operator Dr. Sabillon at [facility] is willing to accept transfer if patient stable for transfer
--- NOTE | 2020-12-27 18:37 | PN ---
PROGRESS NOTE DATE OF SERVICE: 12/27/2020 REASON FOR FOLLOW UP: Pneumonia and positive Covid test. INTERVAL HISTORY: Patient is afebrile. The patient's Covid test came back positive and has been transferred to the fourth floor. The patient is currently afebrile. He is requiring high-flow oxygen. Denies having any chest pain. No cough. No abdominal pain. No diarrhea has been reported. PHYSICAL EXAMINATION: Blood pressure 92/59, pulse of 112, temperature 98.2. He is 93% on 15 L high-flow oxygen. General description is an elderly male lying in bed in no distress. Respiratory system: Unlabored breathing, decreased breath sounds at bases. No wheeze. Heart S1, S2. Regular rate and rhythm. Abdomen soft, no tenderness. LABORATORY DATA: Hemoglobin 10.1, white count 8.2, BUN of 16 and creatinine 0.5. DIAGNOSTIC IMPRESSION AND PLAN: Patient with pneumonia, initial concern for possible Gram-negative. CT did show patchy bilateral pneumonia now with positive Covid test. Decadron has been added. Platelet count has been low hence Lovenox has not been added. Continue with supportive treatment. Prognosis remains to be guarded. MMODL / IJN: [id number] /
--- NOTE | 2020-12-27 19:18 | P.CNPUL ---
History of Present Illness Consult date: 12/27/20 Reason for consult: dyspnea, hypoxemia, pneumonia History of present illness: I was asked to evaluate this patient because of a recent diagnosis of community related pneumonia with secondary hypoxic respiratory failure. The patient was hospitalized on 12/22/2020, because of abnormal lab values, altered mentation and generalized weakness. At the time of his admission, denied having any shortness of breath. At that time, his white cell count was at 13.6 with a hemoglobin of 10.2 and a platelet count of 11. He had normal renal function. Normal coagulation profile. The patient is known to have a previous history of hemorrhagic stroke and AML with chronic thrombocytopenia and the patient has received systemic chemotherapy regarding her AML. Subsequently, the patient received allogenic bone marrow transplantation at [facility]. During this current hospitalization, the patient an extensive workup. Note that the initial evaluation did not include COVID 19 testing. This came at a later stage where the patient was diagnosed having a COVID 19 infection as the patient was getting progressively more short of breath and hypoxic and the chest x-ray was showing diffuse but the pulmonary infiltrates consistent with COVID 19 related pneumonia. Meanwhile, the workup included CBC revealing significant thrombocytopenia, a pro-calcitonin level that was nonelevated, a chest x-ray that showed interstitial infiltrates bilaterally and subsequent CAT scan of the chest that showed patchy bilateral groundglass pulmonary infiltrates typical of community related pneumonia without evidence of pulmonary embolism, a d-dimer of 5.8, it was noted that over the past 48 hours, the patient oxidation progressively got worse. He was receiving IV Zosyn. He was on 3 L of oxygen by nasal cannula and currently is up to 15 L of oxygen by nasal cannula. He was on Decadron 6 mg by mouth daily. Is also on examination of vitamin C and D and zinc. He is quite lethargic yet arousable. Is following commands and answering questions appropriately. Is quite weak. He has a dry cough. He is not using his muscles of breathing. Appetite is weak. He has positive weight loss. The patient currently is a PEG tube in place for enteral feeding and it showed support. Review of Systems Constitutional: Reports fatigue, Reports poor appetite, Reports weakness, Reports weight loss Eyes: denies as per HPI, denies blurred vision, denies bulging eye, denies decreased vision, denies diplopia, denies discharge, denies dry eye, denies irritation, denies itching, denies pain, denies photophobia, denies loss of peripheral vision, denies loss of vision, denies tunnel vision/blind spots Ears: deny: decreased hearing, ear discharge, earache, tinnitus Ears, nose, mouth and throat: Reports as per HPI Breasts: absent: as per HPI, gynecomastia Cardiovascular: Reports decreased exercise tolerance, Reports dyspnea on exertion Respiratory: Reports congestion, Reports dyspnea Gastrointestinal: Reports as per HPI Genitourinary: Reports as per HPI Musculoskeletal: Reports as per HPI, Reports muscle weakness Musculoskeletal: absent: ankle pain Integumentary: Reports as per HPI Neurological: Reports as per HPI, Reports balance difficulties, Reports change in mentation, Reports change in smell/taste, Reports weakness Psychiatric: Reports as per HPI Endocrine: Reports as per HPI, Reports fatigue Hematologic/Lymphatic: Reports as per HPI Allergic/Immunologic: Reports as per HPI Past Medical History Past Medical History: Cancer, CVA/TIA, Hyperlipidemia, Hypertension Additional Past Medical History / Comment(s): Left-sided spontaneous pneuomthorax; hemorrhagic stroke; left carotid stenosis 50%, AML post bone marrow transportation History of Any Multi-Drug Resistant Organisms: None Reported Past Surgical History: Orthopedic Surgery Additional Past Surgical History / Comment(s): ACL replacement, PICC Past Anesthesia/Blood Transfusion Reactions: No Reported Reaction Past Psychological History: Anxiety, Depression Smoking Status: Former smoker Past Alcohol Use History: None Reported Past Drug Use History: None Reported - Past Family History Father Family Medical History: Unable to Obtain Additional Family Medical History / Comment(s): Unable to attain family medical history as patient was adopted Medications and Allergies Home Medications Medication Instructions Recorded Confirmed Type Acyclovir [Zovirax] 800 mg PEG/G-TUBE BID@0800,199912/22/20 12/22/20 History Dermseptin 1 applic TOPICAL DAILY PRN 12/22/20 12/22/20 History Dermseptin 1 applic TOPICAL HS 12/22/20 12/22/20 History FLUoxetine HCL [PROzac] 60 mg PEG/G-TUBE DAILY@0800 12/22/20 12/22/20 History Mirtazapine [Remeron] 15 mg PEG/G-TUBE HS@199912/22/20 12/22/20 History Nutritional Juice 1 can PEG/G-TUBE BID@1200,1600 09/03/21 09/03/21 History Omeprazole [PriLOSEC] 20 mg PEG/G-TUBE DAILY@0800 12/22/20 12/22/20 History Thiamine [Vitamin B-1] 100 mg PEG/G-TUBE DAILY@0800 12/22/20 12/22/20 History clonazePAM [KlonoPIN] 0.5 mg PEG/G-TUBE DAILY@0812/22/20 12/22/20 History ursodioL [Ursodiol] 300 mg PEG/G-TUBE BID@0800,199912/22/20 12/22/20 History Allergies Allergy/AdvReac Type Severity Reaction Status Date / Time No Known Allergies Allergy Verified 12/22/20 07:42 Physical Exam Vitals: Vital Signs Temp Pulse Resp BP Pulse Ox 12/27/20 17:03 98.2 F 112 H 18 92/59 93 L 12/27/20 13:48 98.1 F 98 17 94/55 95 12/27/20 13:05 98 22 86/51 92 L 12/27/20 12:18 81/50 89 L 12/27/20 11:02 106 H 83/44 91 L 12/27/20 10:35 81/48 12/27/20 10:24 106 H 93/56 95 12/27/20 10:19 106 H 20 85/50 93 L 12/27/20 10:12 103 H 22 79/49 93 L 12/27/20 09:58 98.3 F 106 H 17 62/40 93 L 12/27/20 08:30 20 12/27/20 07:45 98.4 F 111 H 18 102/62 92 L 12/27/20 07:30 24 83 L 12/27/20 02:00 99.3 F 117 H 19 98/62 95 12/26/20 19:41 20 12/26/20 19:20 98.1 F 99 20 107/67 95 Intake and Output 12/27/20 12/27/20 12/27/20 06:59 14:59 22:59 Other: Voiding Method Diaper # Voids 0 # Bowel Movements 1 Weight 54.431 kg -GENERAL: The patient is alert and oriented x2-3, not in any acute distress. Well developed, poorly nourished, looks quite debilitated, resting comfortably in bed. No signs of any acute respiratory distress. He is currently on 15 L per minute nasal cannula. Head exam was generally normal. There was no scleral icterus or corneal arcus. Mucous membranes were moist. Neck was supple and without jugular venous distension, thyromegaly, or carotid bruits. Carotids were easily palpable bilaterally. There was no adenopathy. CARDIOVASCULAR: S1 and S2 present. No murmurs, rubs, or gallops. PULMONARY: Chest is clear to auscultation, no wheezing and there are bilateral crackles in the lung bases in the mid lungs. ABDOMEN: Soft, nontender, nondistended, normoactive bowel sounds. No palpable organomegaly. The patient has a PEG tube in place and the exit site is dry clean and intact. MUSCULOSKELETAL: No joint swelling or deformity. EXTREMITIES: No cyanosis, clubbing, or pedal edema. NEUROLOGICAL: Gross neurological examination did not reveal any focal deficits. The patient has global generalized motor weakness. SKIN: No rashes. no petechiae. Results - Laboratory Findings CBC and BMP: 12/27/20 06:17 12/26/20 22:59 PT/INR, D-dimer PT 13.2 sec (9.0-12.0) H 12/27/20 06:17 INR 1.3 (<1.2) H 12/27/20 06:17 D-Dimer 3.05 mg/L FEU (<0.60) H 12/27/20 06:17 Abnormal lab findings: Abnormal Labs 12/22/20 12/22/20 12/22/20 00:23 00:23 00:23 WBC 13.6 H RBC 2.81 L Hgb 10.2 L Hct 30.6 L MCV 109.1 H MCH 36.3 H MCHC RDW 20.5 H Plt Count 11 L* Lymphocytes # (Manual) 8.16 H Monocytes # (Manual) 1.22 H Metamyelocytes # (Man) 0.14 H Myelocytes # (Manual) Macrocytosis Marked A PT 12.3 H INR 1.2 H APTT 35.8 H Fibrinogen D-Dimer Sodium 130 L Potassium Chloride Carbon Dioxide Anion Gap BUN 23 H Creatinine 0.53 L BUN/Creatinine Ratio Calcium 7.6 L TIBC % Saturation Ferritin Conjugated Bilirubin AST 121 H ALT 64 H Alkaline Phosphatase 233 H Lactate Dehydrogenase C-Reactive Protein Total Protein 6.1 L Albumin 2.1 L Globulin Albumin/Globulin Ratio Lipase Vitamin B12 Urine Protein Urine Blood Urine RBC Urine Bacteria Hyaline Casts Urine Mucus U Benzodiazepines Scrn Coronavirus (PCR) 12/22/20 12/22/20 12/22/20 00:30 01:21 01:21 WBC RBC Hgb Hct MCV MCH MCHC RDW Plt Count Lymphocytes # (Manual) Monocytes # (Manual) Metamyelocytes # (Man) Myelocytes # (Manual) Macrocytosis PT INR APTT Fibrinogen D-Dimer Sodium Potassium Chloride Carbon Dioxide Anion Gap BUN Creatinine BUN/Creatinine Ratio Calcium TIBC 150 L % Saturation 70.00 H Ferritin >16654.0 H Conjugated Bilirubin AST ALT Alkaline Phosphatase Lactate Dehydrogenase 350 H C-Reactive Protein Total Protein Albumin Globulin Albumin/Globulin Ratio Lipase <10 L Vitamin B12 1590.0 H Urine Protein 1+ H Urine Blood Small H Urine RBC 32 H Urine Bacteria Rare H Hyaline Casts 6 H Urine Mucus Moderate H U Benzodiazepines Scrn Detected H Coronavirus (PCR) 12/23/20 12/23/20 12/23/20 07:20 07:20 07:20 WBC RBC 3.01 L Hgb 10.9 L Hct 34.1 L MCV 113.5 H MCH 36.3 H MCHC RDW 20.5 H Plt Count 15 L* Lymphocytes # (Manual) Monocytes # (Manual) Metamyelocytes # (Man) Myelocytes # (Manual) Macrocytosis Marked A PT INR APTT Fibrinogen 128 L D-Dimer 5.83 H Sodium Potassium Chloride Carbon Dioxide Anion Gap BUN Creatinine BUN/Creatinine Ratio 35.00 H Calcium 7.7 L TIBC % Saturation Ferritin Conjugated Bilirubin AST 190 H ALT 100 H Alkaline Phosphatase 285 H Lactate Dehydrogenase C-Reactive Protein Total Protein Albumin 2.30 L Globulin 4.0 H Albumin/Globulin Ratio 0.58 L Lipase Vitamin B12 Urine Protein Urine Blood Urine RBC Urine Bacteria Hyaline Casts Urine Mucus U Benzodiazepines Scrn Coronavirus (PCR) 12/23/20 12/24/20 12/24/20 07:20 05:59 05:59 WBC RBC 2.78 L Hgb 10.0 L Hct 30.9 L MCV 111.1 H MCH 36.1 H MCHC RDW 20.5 H Plt Count 13 L* Lymphocytes # (Manual) Monocytes # (Manual) 1.10 H Metamyelocytes # (Man) 0.07 H Myelocytes # (Manual) 0.15 H Macrocytosis Marked A PT INR APTT Fibrinogen D-Dimer Sodium Potassium Chloride 111 H Carbon Dioxide Anion Gap 1.90 L BUN Creatinine 0.5 L BUN/Creatinine Ratio 34.00 H Calcium 7.4 L TIBC % Saturation Ferritin Conjugated Bilirubin AST 194 H ALT 98 H Alkaline Phosphatase 314 H Lactate Dehydrogenase C-Reactive Protein 5.7 H Total Protein Albumin 2.10 L Globulin 4.1 H Albumin/Globulin Ratio 0.51 L Lipase Vitamin B12 Urine Protein Urine Blood Urine RBC Urine Bacteria Hyaline Casts Urine Mucus U Benzodiazepines Scrn Coronavirus (PCR) 12/24/20 12/25/20 12/26/20 05:59 05:20 06:23 WBC RBC Hgb Hct MCV MCH MCHC RDW Plt Count Lymphocytes # (Manual) Monocytes # (Manual) Metamyelocytes # (Man) Myelocytes # (Manual) Macrocytosis PT INR APTT Fibrinogen D-Dimer Sodium 133 L Potassium 3.2 L 3.4 L Chloride 112 H 115 H Carbon Dioxide 20 L 21.1 L Anion Gap 2.90 L BUN Creatinine 0.59 L 0.5 L BUN/Creatinine Ratio 32.00 H Calcium 7.0 L 6.8 L TIBC % Saturation Ferritin Conjugated Bilirubin 0.60 H AST 170 H ALT 86 H Alkaline Phosphatase 337 H Lactate Dehydrogenase C-Reactive Protein 11.7 H Total Protein 4.9 L Albumin 1.50 L Globulin 3.4 H Albumin/Globulin Ratio 0.44 L Lipase Vitamin B12 2218.0 H Urine Protein Urine Blood Urine RBC Urine Bacteria Hyaline Casts Urine Mucus U Benzodiazepines Scrn Coronavirus (PCR) 12/26/20 12/27/20 12/27/20 16:30 06:17 06:17 WBC RBC 2.99 L Hgb 10.9 L Hct 35.2 L MCV 117.5 H D MCH 36.4 H MCHC 30.9 L RDW 21.0 H Plt Count 25 L D Lymphocytes # (Manual) Monocytes # (Manual) Metamyelocytes # (Man) 0.16 H Myelocytes # (Manual) 0.08 H Macrocytosis Marked A PT 13.2 H INR 1.3 H APTT Fibrinogen D-Dimer 3.05 H Sodium Potassium Chloride Carbon Dioxide Anion Gap BUN Creatinine BUN/Creatinine Ratio Calcium TIBC % Saturation Ferritin Conjugated Bilirubin AST ALT Alkaline Phosphatase Lactate Dehydrogenase C-Reactive Protein Total Protein Albumin Globulin Albumin/Globulin Ratio Lipase Vitamin B12 Urine Protein Urine Blood Urine RBC Urine Bacteria Hyaline Casts Urine Mucus U Benzodiazepines Scrn Coronavirus (PCR) Detected A - Diagnostic Findings Chest x-ray: image reviewed Assessment and Plan Plan: 1 acute COVID 19 related pneumonia. This very much likely the patient was infected even at the time of admission with Covid 19. His initial computed tomography scan of the chest showed bilateral ground glass pulmonary infiltrates typical of Covid 19. During the course of his hospitalization, the patient was diagnosed and the patient developed progressive hypoxic respiratory failure and currently is on 50 units of oxygen by nasal cannula. He is quite debilitated. His immunocompromise. 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 4 chronic thrombocytopenia 5 altered mentation with ongoing waxing and waning in level of consciousness. MRI of the brain is not showing any acute abnormalities. EEG is consistent with toxic metabolic encephalopathy. This is probably related to Covid 19 infection. No focal neurological deficit at this point in time. The patient is quite debilitated and he has global generalized weakness without any focal deficits. 6 history of hemorrhagic stroke with carotid artery stenosis 7 hypertension 8 hyperlipidemia 9 chronic anxiety/depression 10 transaminitis secondary to Covid 19 infection 11 enteral feeding for that she has support through a PEG tube Plan Continue Decadron Stop IV Zosyn Monitor the oxygenation and keep the patient on 15 L for now Monitor inflammatory markers Not a candidate for anticoagulation due to his underlying thrombocytopenia Not a candidate for Remdesivir due to his high oxygen requirements We'll coordinate care with, scans instituted and locally without travel rn or oncologist Prognosis poor. We'll continue to follow.
[2020-12-27] MEDS: ZINC OXIDE 20% OINT 28.4 GM TUBE TOPICAL SCH (20:16)
[2020-12-27 22:40] LABS: EBV-EA (IgG) 1.2 AI; EBV-EBNA(IgG) 0.7 AI; EBV-VCA (IgG) 0.6 AI; EBV-VCA (IgM) <0.2 AI
[2020-12-28 01:03] LABS: ALT 82 U/L (10-49); AST 178 U/L (14-35); African American GFR (CKD) 119.7 (60.0-200.0); Albumin/Globulin Ratio 0.45 (1.60-3.17); Alkaline Phosphatase 357 U/L (41-126); BUN/Creat Ratio 26.67 Ratio (12.00-20.00); C Reactive Protein 13.8 mg/dL (0.0-0.8); Calcium 7.2 mg/dL (8.7-10.3); Carbon Dioxide 16.9 mmol/L (21.6-31.8); Chloride 117 mmol/L (96-109); Ferritin >16500.0 ng/mL (10.0-291.0); Glucose 61 mg/dL (70-110); LDH 569 U/L (120-246); Magnesium 1.6 mg/dL (1.5-2.4); Non-African American GFR(CKD) 103.3 (60.0-200.0); Sodium 141 mmol/L (135-145); Total Bilirubin 1.4 mg/dL (0.3-1.2); Total Protein 5.8 g/dL (6.2-8.2)
[2020-12-28 05:45] VITALS: BP 107/72; PULSE 105; RESP 18; TEMP 98.8
[2020-12-28] MEDS: SODIUM CHLORIDE 0.9% 1,000 ML IV SCH (05:52)
[2020-12-28 06:55] LABS: Glucose,Whole Blood 126 mg/dL (75-99)
--- NOTE | 2020-12-28 07:18 | P.EN ---
Code blue note patient went into a cardiopulmonary arrest , with asystole, CPR initiated following ACLS protocol please refer to paper charting for exact events sequence and meds pushed patient was given epi, intubated. ROSC achieved after about 12 min of CPR. vital signs stable orders for CXR for tube placement , 1 L bolus IVF NS 0.9%, check labs CBC, cmp, transfer to ICU , check EKG family update d ICU attending DR Morrell notified
[2020-12-28 07:24] LABS: Glucose,Whole Blood 147 mg/dL (75-99)
[2020-12-28] MEDS ORDERED: CISATRACURIUM 2 MG/ML 5 ML VIAL IV ONE (07:55)
--- NOTE | 2020-12-28 08:03 | P.PN ---
Subjective Progress Note Date: 12/28/20 I was asked to evaluate this patient because of a recent diagnosis of community related pneumonia with secondary hypoxic respiratory failure. The patient was hospitalized on 12/22/2020, because of abnormal lab values, altered mentation and generalized weakness. At the time of his admission, denied having any shortness of breath. At that time, his white cell count was at 13.6 with a hemoglobin of 10.2 and a platelet count of 11. He had normal renal function. Normal coagulation profile. The patient is known to have a previous history of hemorrhagic stroke and AML with chronic thrombocytopenia and the patient has received systemic chemotherapy regarding her AML. Subsequently, the patient received allogenic bone marrow transplantation at [facility]. During this current hospitalization, the patient an extensive workup. Note that the initial evaluation did not include COVID 19 testing. This came at a later stage where the patient was diagnosed having a COVID 19 infection as the patient was getting progressively more short of breath and hypoxic and the chest x-ray was showing diffuse but the pulmonary infiltrates consistent with COVID 19 related pneumonia. Meanwhile, the workup included CBC revealing significant thrombocytopenia, a pro-calcitonin level that was nonelevated, a chest x-ray that showed interstitial infiltrates bilaterally and subsequent CAT scan of the chest that showed patchy bilateral groundglass pulmonary infiltrates typical of community related pneumonia without evidence of pulmonary embolism, a d-dimer of 5.8, it was noted that over the past 48 hours, the patient oxidation progressively got worse. He was receiving IV Zosyn. He was on 3 L of oxygen by nasal cannula and currently is up to 15 L of oxygen by nasal cannula. He was on Decadron 6 mg by mouth daily. Is also on examination of vitamin C and D and zinc. He is quite lethargic yet arousable. Is following commands and answering questions appropriately. Is quite weak. He has a dry cough. He is not using his muscles of breathing. Appetite is weak. He has positive weight loss. The patient currently is a PEG tube in place for enteral feeding and it showed support 12/28/2020 the patient chest to the intensive care unit after he had a cardiopulmonary arrest on the floor. I saw this patient in consultation yesterday. He is quite debilitated elderly male patient with history of AML and the patient is post bone marrow transplantation. Noted the patient during this current hospital stay was diagnosed having COVID-19 related pneumonia and the patient became progressively more hypoxic. He was seen yesterday and was on 15 L of oxygen by nasal cannula. Nevertheless during my evaluation, the patient was breathing comfortably. He was started on Decadron. At around 6:30 AM, the patient became restless and agitated. He was found to have pulled his oxygen mask and he was found to be quite hypoxic. He was placed back on oxygen and as a nurse's were giving report, the patient was found to be acutely unresponsive again and he was found to be in cardiac pulmonary arrest with asystole. We are not sure what was the time that he became unresponsive knowing that this was unwitnessed. ACLS protocol was initiated and the patient was receiving CPR for a total of 12 minutes. He was intubated. He was given epinephrine. There was return of smoking sedation following that. Chest x-ray was ordered and showed diffuse bilateral pulmonary infiltrates. He was given a liter of IV fluid normal saline. He got transferred to the intensive care unit. Currently, the patient is intubated on a mechanical ventilator. His vent setting includes an assist-control mode at the rate of 18 with tidal volume of 450 and FiO2 of 1% with a PEEP of 5. His pulse ox currently on the monitor is in order of 82%. Morning blood work. No morning blood gases. The patient remains unresponsive. He was quite asynchronous a mechanical ventilator and currently is on propofol running at 20 mcg/kg. Her minutes. Hemodynamically, he is in sinus tachycardia, blood pressure is stable on no pressors and the most recent systolic blood pressure was 119 with a diastolic pressure of 80. Pupils are dilated currently at 4-5 mm in size and they're sluggishly reactive to light. Noted the patient already received epinephrine. Motor function cannot be assessed. Is a bit asynchronous on a mechanical ventilator. A previous echocardiogram from 2019 at shown a preserved LV function with an ejection fraction of 55-60%. No other significant valvular abnormalities. Objective - Vital Signs Vital signs: Vital Signs Temp 98.8 F 12/28/20 05:44 Pulse 105 H 12/28/20 05:44 Resp 18 12/28/20 05:44 BP 107/72 12/28/20 05:44 Pulse Ox 93 L 12/28/20 05:44 Intake & Output 12/27/20 12/28/20 12/28/20 18:59 06:59 18:59 Weight 54.431 kg 61.5 kg Other: Voiding Method Diaper Diaper # Voids 1 # Bowel Movements 2 - Exam Appearance, the patient is asynchronous a mechanical ventilator. He'll be paralyzed for now. He is also on sedation on propofol. The patient's is intubated on mechanical ventilator. Orotracheal and orogastric tube are both in place. Head exam was generally normal. There was no scleral icterus or corneal arcus. Mucous membranes were moist. Neck was supple and without jugular venous distension, thyromegaly, or carotid bruits. Carotids were easily palpable bilaterally. There was no adenopathy. CARDIOVASCULAR: S1 and S2 present. No murmurs, rubs, or gallops. PULMONARY: Chest is clear to auscultation, no wheezing and there are bilateral crackles in the lung bases in the mid lungs. ABDOMEN: Soft, nontender, nondistended, normoactive bowel sounds. No palpable organomegaly. The patient has a PEG tube in place and the exit site is dry clean and intact. MUSCULOSKELETAL: No joint swelling or deformity. EXTREMITIES: No cyanosis, clubbing, or pedal edema. NEUROLOGICAL: Sedated and unresponsive. SKIN: No rashes. no petechiae. - Labs CBC & Chem 7: 12/27/20 06:17 12/27/20 06:17 Labs: Abnormal Lab Results - Last 24 Hours (Table) 12/27/20 12/27/20 12/27/20 Range/Units 06:00 06:17 06:17 RBC 2.99 L (4.30-5.90) m/uL Hgb 10.9 L (13.0-17.5) gm/dL Hct 35.2 L (39.0-53.0) % MCV 117.5 H D (80.0-100.0) fL MCH 36.4 H (25.0-35.0) pg MCHC 30.9 L (31.0-37.0) g/dL RDW 21.0 H (11.5-15.5) % Plt Count 25 L D (150-450) k/uL Metamyelocytes # (Man) 0.16 H (0) k/uL Myelocytes # (Manual) 0.08 H (0) k/uL Macrocytosis Marked A Chloride 117 H (96-109) mmol/L Carbon Dioxide 16.9 L (21.6-31.8) mmol/L BUN/Creatinine Ratio 26.67 H (12.00-20.00) Ratio Glucose 61 L (70-110) mg/dL POC Glucose (mg/dL) (75-99) mg/dL Calcium 7.2 L (8.7-10.3) mg/dL Ferritin >94220.0 H (10.0-291.0) ng/mL Total Bilirubin 1.4 H (0.3-1.2) mg/dL AST 178 H (14-35) U/L ALT 82 H (10-49) U/L Alkaline Phosphatase 357 H (41-126) U/L Lactate Dehydrogenase 569 H (120-246) U/L C-Reactive Protein 13.8 H (0.0-0.8) mg/dL Total Protein 5.8 L (6.2-8.2) g/dL Albumin 1.80 L (3.80-4.90) g/dL Globulin 4.0 H (1.6-3.3) g/dL Albumin/Globulin Ratio 0.45 L (1.60-3.17) g/dL EBV EA IgG Ab Interp POSITIVE A (NEGATIVE) 12/28/20 12/28/20 Range/Units 06:52 07:22 RBC (4.30-5.90) m/uL Hgb (13.0-17.5) gm/dL Hct (39.0-53.0) % MCV (80.0-100.0) fL MCH (25.0-35.0) pg MCHC (31.0-37.0) g/dL RDW (11.5-15.5) % Plt Count (150-450) k/uL Metamyelocytes # (Man) (0) k/uL Myelocytes # (Manual) (0) k/uL Macrocytosis Chloride (96-109) mmol/L Carbon Dioxide (21.6-31.8) mmol/L BUN/Creatinine Ratio (12.00-20.00) Ratio Glucose (70-110) mg/dL POC Glucose (mg/dL) 126 H 147 H (75-99) mg/dL Calcium (8.7-10.3) mg/dL Ferritin (10.0-291.0) ng/mL Total Bilirubin (0.3-1.2) mg/dL AST (14-35) U/L ALT (10-49) U/L Alkaline Phosphatase (41-126) U/L Lactate Dehydrogenase (120-246) U/L C-Reactive Protein (0.0-0.8) mg/dL Total Protein (6.2-8.2) g/dL Albumin (3.80-4.90) g/dL Globulin (1.6-3.3) g/dL Albumin/Globulin Ratio (1.60-3.17) g/dL EBV EA IgG Ab Interp (NEGATIVE) Microbiology - Last 24 Hours (Table) 12/24/20 23:22 Blood Culture - Preliminary Blood No Growth after 72 hours 12/23/20 09:45 Blood Culture - Preliminary Blood No Growth after 96 hours 12/23/20 07:20 Blood Culture - Preliminary Blood No Growth after 96 hours Assessment and Plan Plan: 1 acute COVID 19 related pneumonia. This very much likely the patient was infected even at the time of admission with Covid 19. His initial computed tomography scan of the chest showed bilateral ground glass pulmonary infiltrates typical of Covid 19. During the course of his hospitalization, the patient was diagnosed and the patient developed progressive hypoxic respiratory failure and during the initial evaluation from yesterday was on 15 L of oxygen by nasal cannula. Overnight, the patient was stable and early this morning, the patient went into acute cardiac pulmonary arrest 2 acute cardiopulmonary arrest with a downtime of around 12 minutes with return of spontaneous circulation. Currently on no pressors. Currently intubated on a mechanical ventilator. Chest x-ray showing diffuse but the pulmonary infiltrates, consider pulmonary edema. Consider progression of COVID-19 related pneumonia with worsening hypoxemia respiratory failure. 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 4 chronic thrombocytopenia 5 altered mentation with ongoing waxing and waning in level of consciousness. MRI of the brain is not showing any acute abnormalities. EEG is consistent with toxic metabolic encephalopathy. This is probably related to Covid 19 infection. No focal neurological deficit at this point in time. The patient is quite debilitated and he has global generalized weakness without any focal deficits. The patient is currently intubated on a mechanical ventilator. The patient is currently unresponsive post cardiac pulmonary arrest. 6 history of hemorrhagic stroke with carotid artery stenosis 7 hypertension 8 hyperlipidemia 9 chronic anxiety/depression 10 transaminitis secondary to Covid 19 infection 11 enteral feeding for that she has support through a PEG tube Plan Continue ventilator support Increase the the PEEP up to 12, the 400s, increased respiratory rate up to 30. Check a blood gas. Keep the patient is sedated with propofol. Given a dose of Nimbex for paralysis as the patient is quite asynchronous with a mechanical ventilator. 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 We'll continue to follow. Very poor prognosis based on the above-mentioned comorbidities. Evaluation was done and more than 30 minutes. There is a critically care evaluation. Time with Patient: Greater than 30
--- NOTE | 2020-12-28 08:08 | XR ---
EXAMINATION TYPE: XR chest 1V portable DATE OF EXAM: 12/28/2020 CLINICAL HISTORY: Difficulty breathing had to be intubated. COVID positive. TECHNIQUE: Single AP portable supine view of the chest is obtained. COMPARISON: Chest x-ray from one day earlier and older studies. FINDINGS: New Endotracheal tube passes below miguel into right mainstem bronchus advise pulling back 6.0 cm to be in more ideal position. New orogastric tube projects below diaphragm. More prominent confluent reticulonodular opacities bilaterally. Cardiac silhouette size stable within normal limits. Osseous structures are intact. IMPRESSION: 1. New orogastric tube satisfactory in position. 2. New endotracheal tube too low, advise pulling back 6.0 cm. 3. More prominent confluent reticulonodular opacities bilaterally consistent with covid-19 infection could reflect slight worsening and/or more likely change in position from upright to supine techniqu e. Results of low-lying endotracheal tube called to ICU at time of dictation. A Document Only message has been documented for David Eugene in the [employer] system on 12/28/2020 8:05 AM, Message ID [id number].
[2020-12-28] MEDS ORDERED: PIPERACILLIN-TAZOBACTAM 3.375 GM in SODIUM CHLORIDE 0.9% 100 ML IVPB SCH (08:15)
--- NOTE | 2020-12-28 08:39 | XR ---
EXAMINATION TYPE: XR chest 1V portable DATE OF EXAM: 12/28/2020 CLINICAL HISTORY: ET tube adjustment. New central line. TECHNIQUE: Single AP portable supine view of the chest is obtained. COMPARISON: Chest x-ray from earlier today FINDINGS: Improved positioning of endotracheal tube just below level of clavicles, approximately 4 c m above miguel. Stable orogastric tube. New left-sided Subclavian central venous catheter terminating at cavoatrial junction. Persistent confluent reticulonodular opacities bilaterally with relative sparing of the bilateral cos tophrenic angles. Cardiac silhouette size stable and within normal limits. Osseous structures are int act. IMPRESSION: 1. New left subclavian central venous catheter terminating at cavoatrial junction. No pneumothorax. 2. Satisfactory positioning of endotracheal tube after repositioning. 3. Persistent confluent bilateral opacities consistent with covid-19 infection, no significant stanley e from most recent study.
[2020-12-28 09:04] LABS: ABG HCO3 11 mmol/L (21-25); ABG Oxygen Saturation 99.5 % (94-97); ABG PCO2 38 mmHg (35-45); ABG PO2 360 mmHg (83-108); ABG TCO2 12 mmol/L (19-24)
[2020-12-28] MEDS ORDERED: SODIUM BICARB 8.4% 50 ML SYR (1 MEQ/ML) ONE (09:13)
[2020-12-28] MEDS ORDERED: SODIUM CHLORIDE 0.9% 2,000 ML IV ONE (09:17)
[2020-12-28] MEDS ORDERED: SODIUM BICARB 8.4% 50 ML SYR (1 MEQ/ML) IV STA (09:18)
[2020-12-28 09:24] LABS: Glucose,Whole Blood 149 mg/dL (75-99)
[2020-12-28] MEDS ORDERED: PANTOPRAZOLE 40 MG/10 ML VIAL IVP SCH (09:30)
[2020-12-28] MEDS ORDERED: CHLORHEXIDINE GLUCONATE 15 ML CUP MUCOUS MEM SCH (09:30)
[2020-12-28] MEDS ORDERED: INSULIN ASPART (NovoLOG) 100 UNIT/ML VIAL SQ SCH (09:30)
[2020-12-28 10:22] LABS: Anisocytosis Moderate; Basophils # (A) 0.1 k/uL (0-0.2); Basophils % (A) 1 %; Eosinophils % (A) 0 %; HCT 32.9 % (39.0-53.0); HGB 9.9 gm/dL (13.0-17.5); Hypochromasia Marked; Lymphocytes # (A) 2.9 k/uL (1.0-4.8); Lymphocytes % (A) 20 %; MCH 36.5 pg (25.0-35.0); MCHC 30.2 g/dL (31.0-37.0); MCV 120.9 fL (80.0-100.0); Macrocytosis Marked; Mean Platelet Volume 11.5; Monocytes # (A) 0.2 k/uL (0-1.0); Monocytes % (A) 2 %; Neutrophils % (A) 76 %; RBC 2.72 m/uL (4.30-5.90); WBC 14.5 k/uL (3.8-10.6)
[2020-12-28] MEDS: ursodioL 300 MG CAP PEG/G-TUBE SCH (10:23)
[2020-12-28] MEDS: THIAMINE 100 MG TAB PEG/G-TUBE SCH (10:23)
[2020-12-28] MEDS: FLUoxetine HCL 20 MG CAP PEG/G-TUBE SCH (10:23)
[2020-12-28 10:25] LABS: Platelet Count 43 k/uL (150-450)
[2020-12-28] MEDS ORDERED: NOREPINEPHRINE 8 MG in SODIUM CHLORIDE 0.9% 250 ML IV SCH (10:30)
[2020-12-28 10:34] LABS: AST 179 U/L (17-59); African American GFR (CKD) >90 (>60 ml/min/1.73 sqM); Albumin 1.6 g/dL (3.5-5.0); Albumin/Globulin Ratio 0.4; Alkaline Phosphatase 413 U/L (38-126); Anion Gap 9 mmol/L; Blood Urea Nitrogen 18 mg/dL (9-20); Calcium 7.1 mg/dL (8.4-10.2); Carbon Dioxide 12 mmol/L (22-30); Chloride 122 mmol/L (98-107); Globulin 3.9 g/dL; Glucose 163 mg/dL (74-99); Non-African American GFR(CKD) >90 (>60 ml/min/1.73 sqM); Potassium 4.4 mmol/L (3.5-5.1); Sodium 143 mmol/L (137-145); Total Bilirubin 1.2 mg/dL (0.2-1.3); Total Protein 5.5 g/dL (6.3-8.2)
[2020-12-28 10:37] LABS: ABG PH 7.07 (7.35-7.45)
[2020-12-28 10:46] LABS: ALT 61 U/L (4-49)
[2020-12-28 10:54] LABS: INR 1.4 (<1.2); Prothrombin Time 14.2 sec (9.0-12.0)
[2020-12-28] MEDS: ASCORBIC ACID 500 MG TAB PO SCH (11:58)
[2020-12-28] MEDS: CHOLECALCIFEROL 25 MCG (1000 IU) TABLET PO SCH (11:58)
[2020-12-28] MEDS: DEXAMETHASONE SOD PHOSPHATE 10 MG/ML 1 ML VIAL IV SCH (11:58)
[2020-12-28] MEDS: ACETAMINOPHEN TAB 500 MG TAB PEG/G-TUBE SCH (11:58)
[2020-12-28] MEDS: ZINC SULFATE 220 MG CAP PO SCH (11:58)
[2020-12-28] MEDS ORDERED: MORPHINE SULFATE 4 MG/ML SYRINGE IV PRN (12:09)
[2020-12-28] MEDS ORDERED: LORazepam 2 MG/ML INJ IV PRN (12:09)
[2020-12-28] MEDS ORDERED: MORPHINE SULFATE (100 MG/2 ML) 100 MG in SODIUM CHLORIDE 0.9% 100 ML IV SCH (12:30)
[2020-12-28] MEDS ORDERED: SCOPOLAMINE 1.5MG/72HR PATCH TRANSDERM SCH (12:30)
--- NOTE | 2020-12-28 14:04 | PN ---
PROGRESS NOTE DATE OF SERVICE: 12/28/2020 REASON FOR FOLLOWUP: Pneumonia. INTERVAL HISTORY: The patient did have respiratory distress this morning. The patient currently has taken off his oxygen. Now noted to be hypoxic, unresponsive requiring CPR for almost 30 minutes. Patient got intubated and subsequent has been transferred to the ICU. Currently on pressor support. No significant purulent secretions through the ET reported by the nursing staff. PHYSICAL EXAMINATION: Blood pressure 107/72 with a pulse of 105. Temperature is 98.8, currently 93% on the vent. General description is an elderly male intubated on the vent. Respiratory system: Unlabored breathing, decreased intensity of breath sounds. No wheeze. Heart S1, S2. Regular rate and rhythm. Abdomen soft, no tenderness. LABS: Hemoglobin is up to 14.5 with a BUN of 18, creatinine 0.69. Blood culture negative. DIAGNOSTIC IMPRESSION AND PLAN: This patient with acute respiratory failure multifactorial concern for possible component of aspiration pneumonia. Antibiotic adjusted to Zosyn. Sputum culture will be requested. However, plan for possible hospice per the nursing staff. If that is the case, antibiotic can be safely discontinued. Family at the bedside. Questions were answered. MMODL / IJN: [id number] /
--- NOTE | 2020-12-28 17:25 | P.PCN ---
Date of Procedure: 12/28/20 Preoperative Diagnosis: Acute COVID 19 related pneumonia with respiratory failure Postoperative Diagnosis: Acute COVID 19 related pneumonia with respiratory failure Procedure(s) Performed: Arterial Line Indication: Hemodynamic monitoring. A time-out was completed verifying correct patient, procedure, site, positioning, and implant(s) or special equipment if applicable. Juan Jose s test was performed to ensure adequate perfusion. The patients right wrist was prepped and draped in sterile fashion. 1% Lidocaine was used to anesthetize the area. An 18G Arrow arterial line was introduced into the right radial artery. The catheter was threaded over the guide wire and the needle was removed with appropriate pulsatile blood return. Blood loss was minimal. The catheter was then sutured in place to the skin and a sterile dressing applied. Perfusion to the extremity distal to the point of catheter insertion was checked and found to be adequate. The patient tolerated the procedure well and there were no complications. Central Line Indication: Hemodynamic monitoring/Intravenous access. A time-out was completed verifying correct patient, procedure, site, positioning, and implant(s) or special equipment if applicable. The patient was placed in a dependent position appropriate for central line placement based on the vein to be cannulated. The patient s left shoulder /neck was prepped and draped in sterile fashion. 1% Lidocaine was used to anesthetize the surrounding skin area. A triple lumen 9F Cordis catheter was introduced into the Left subclavian vein using Seldinger technique. The catheter was threaded smoothly over the guide wire and appropriate blood return was obtained. Each lumen of the catheter was evacuated of air and flushed with sterile saline. The catheter was then sutured in place to the skin and a sterile dressing applied. Perfusion to the extremity distal to the point of catheter insertion was checked and found to be adequate. The patient tolerated the procedure well and there were no complications. Anesthesia: local Surgeon: Elva Morrell Estimated Blood Loss (ml): 0 Pathology: other Condition: critical Disposition: ICU
[2020-12-28 20:33] LABS: Hemoglobin A1C 4.4 % (4.0-6.0)
--- NOTE | 2020-12-28 21:59 | P.DS ---
Providers Date of admission: 12/22/20 02:59 Attending physician: Samson Coy Consults: 12/22/20 03:00 Consult Physician Routine Consulting Provider: Edwin Rees Consult Reason/Comments: known Do you want consulting provider notified?: Yes 12/23/20 15:33 Consult Physician Routine Consulting Provider: Jad Mathur Consult Reason/Comments: weakness/leukocytosis/r/o infection Do you want consulting provider notified?: Yes 12/23/20 18:54 Consult Physician Routine Consulting Provider: Gorge Clark Consult Reason/Comments: Altered mental status Do you want consulting provider notified?: Yes 12/27/20 10:21 Consult Physician Urgent Consulting Provider: Elva Morrell Consult Reason/Comments: CA myel leukemia/ recently diagnosed Covid/ on 15L HF Do you want consulting provider notified?: Yes Primary care physician: [facility] Hospital Course: Diagnoses: Acute bilateral covid pneumonia Acute hypoxic respiratory failure, needing intubation and mechanical ventilation Altered mental status, secondary to metabolic encephalopathy Severe thrombocytopenia Iron overload A nitrous History of hypertension Hyperlipidemia History of TIA/CVA Acute myeloid leukemia History of depression and anxiety Hospital course: 70-year-old male with a past medical history significant for acute myeloid leukemia diagnosed back in December 2019 patient is status post chemo and has recently completed a bone marrow transplant at [facility] in this [facility] patient was sent to the ER at [facility] for evaluation of abnormal lab values and mental status changes Patient has been evaluated by several consultants including oncology/hematology team, neurology and infectious disease team. He was found to have metabolic encephalopathy, with MRI showing no metastasis, EEG negative for epileptiform discharge. He was found to have bilateral interstitial pneumonia treated with Zosyn. Later on his covid test came back positive and he was diagnosed with bilateral Covid pneumonia and hypoxic respiratory failure. Also he was hypotensive treated with IV fluid. Pulmonary/critical care consult was obtained. Patient was started on dexamethasone, multiple vitamins. Also received platelet transfusion for severe thrombocytopenia. This morning patient went into cardiopulmonary arrest and MIGUEL EISENBERG was called, down time was about 12 minutes per staff however patient was hypoxic at beginning needing 15 L of oxygen prior to that. Eventually patient was intubated and sent to the ICU. However he was placed on mechanical ventilation with PEEP of 12 and FiO2 of 70%, patient was hypotensive still needing IV fluid. Family were at bedside who decided to make the patient DO NOT RESUSCITATE and later on decided to proceed with hospice Eventually patient on the same day, please refer to nursing note for more details Examination prior to expiration Gen: patient is intubated and sedated on propofol CVS: S1-S2, RRR, no murmur Lungs: B/L CTA, no wheezing. Bilateral crepitation Abdomen: soft, no distention, no tenderness, positive bowel sounds Extremity: no leg edema or induration Time spent more than 35 minutes Plan - Discharge Summary Discharge Rx Participant: No New Discharge Prescriptions: No Action Acyclovir [Zovirax] 800 mg PEG/G-TUBE BID@0800,1999 Dermseptin 1 applic TOPICAL HS ursodioL [Ursodiol] 300 mg PEG/G-TUBE BID@0800,1999 Nutritional Juice 1 can PEG/G-TUBE BID@1200,1600 Thiamine [Vitamin B-1] 100 mg PEG/G-TUBE DAILY@0800 Omeprazole [PriLOSEC] 20 mg PEG/G-TUBE DAILY@0800 Mirtazapine [Remeron] 15 mg PEG/G-TUBE HS@1999 clonazePAM [KlonoPIN] 0.5 mg PEG/G-TUBE DAILY@0800 FLUoxetine HCL [PROzac] 60 mg PEG/G-TUBE DAILY@0800 Dermseptin 1 applic TOPICAL DAILY PRN PRN Reason: COCCYX WOUND Discharge Medication List Acyclovir [Zovirax] 800 mg PEG/G-TUBE BID@0800,199912/22/20 [History] Dermseptin 1 applic TOPICAL DAILY PRN 12/22/20 [History] Dermseptin 1 applic TOPICAL HS 12/22/20 [History] FLUoxetine HCL [PROzac] 60 mg PEG/G-TUBE DAILY@0800 12/22/20 [History] Mirtazapine [Remeron] 15 mg PEG/G-TUBE HS@199912/22/20 [History] Nutritional Juice 1 can PEG/G-TUBE BID@1200,1600 12/22/20 [History] Omeprazole [PriLOSEC] 20 mg PEG/G-TUBE DAILY@0800 12/22/20 [History] Thiamine [Vitamin B-1] 100 mg PEG/G-TUBE DAILY@0800 12/22/20 [History] clonazePAM [KlonoPIN] 0.5 mg PEG/G-TUBE DAILY@0800 12/22/20 [History] ursodioL [Ursodiol] 300 mg PEG/G-TUBE BID@799,199912/22/20 [History] Follow up Appointment(s)/Referral(s): Fady Lemus DO [Primary Care Provider] - 1-2 days Discharge Disposition: - Preliminary Cause of Preliminary Cause of : covid pneumonia and resp failure
--- NOTE | 2020-12-28 23:45 | P.PN ---
Subjective Progress Note Date: 12/28/20 Principal diagnosis: Leukemia Patient now in care of ICU after cardiac arrest requiring CPR this am. Objective - Vital Signs Vital signs: Vital Signs Temp 98.8 F 12/28/20 05:44 Pulse 105 H 12/28/20 05:44 Resp 18 12/28/20 05:44 BP 107/72 12/28/20 05:44 Pulse Ox 93 L 12/28/20 05:44 Intake & Output 12/27/20 12/28/20 12/28/20 18:59 06:59 18:59 Weight 54.431 kg 61.5 kg Other: Voiding Method Diaper Diaper # Voids 1 # Bowel Movements 2 - Exam intubated unresponsive - Labs CBC & Chem 7: 12/28/20 08:18 12/28/20 08:18 Labs: Abnormal Lab Results - Last 24 Hours (Table) 12/27/20 12/27/20 12/27/20 Range/Units 06:00 06:17 06:17 Plt Count 25 L D (150-450) k/uL Metamyelocytes # (Man) 0.16 H (0) k/uL Myelocytes # (Manual) 0.08 H (0) k/uL Chloride 117 H (96-109) mmol/L Carbon Dioxide 16.9 L (21.6-31.8) mmol/L BUN/Creatinine Ratio 26.67 H (12.00-20.00) Ratio Glucose 61 L (70-110) mg/dL POC Glucose (mg/dL) (75-99) mg/dL Calcium 7.2 L (8.7-10.3) mg/dL Ferritin >18509.0 H (10.0-291.0) ng/mL Total Bilirubin 1.4 H (0.3-1.2) mg/dL AST 178 H (14-35) U/L ALT 82 H (10-49) U/L Alkaline Phosphatase 357 H (41-126) U/L Lactate Dehydrogenase 569 H (120-246) U/L C-Reactive Protein 13.8 H (0.0-0.8) mg/dL Total Protein 5.8 L (6.2-8.2) g/dL Albumin 1.80 L (3.80-4.90) g/dL Globulin 4.0 H (1.6-3.3) g/dL Albumin/Globulin Ratio 0.45 L (1.60-3.17) g/dL EBV EA IgG Ab Interp POSITIVE A (NEGATIVE) 12/28/20 12/28/20 Range/Units 06:52 07:22 Plt Count (150-450) k/uL Metamyelocytes # (Man) (0) k/uL Myelocytes # (Manual) (0) k/uL Chloride (96-109) mmol/L Carbon Dioxide (21.6-31.8) mmol/L BUN/Creatinine Ratio (12.00-20.00) Ratio Glucose (70-110) mg/dL POC Glucose (mg/dL) 126 H 147 H (75-99) mg/dL Calcium (8.7-10.3) mg/dL Ferritin (10.0-291.0) ng/mL Total Bilirubin (0.3-1.2) mg/dL AST (14-35) U/L ALT (10-49) U/L Alkaline Phosphatase (41-126) U/L Lactate Dehydrogenase (120-246) U/L C-Reactive Protein (0.0-0.8) mg/dL Total Protein (6.2-8.2) g/dL Albumin (3.80-4.90) g/dL Globulin (1.6-3.3) g/dL Albumin/Globulin Ratio (1.60-3.17) g/dL EBV EA IgG Ab Interp (NEGATIVE) Microbiology - Last 24 Hours (Table) 12/24/20 23:22 Blood Culture - Preliminary Blood No Growth after 72 hours 12/23/20 09:45 Blood Culture - Preliminary Blood No Growth after 96 hours 12/23/20 07:20 Blood Culture - Preliminary Blood No Growth after 96 hours Assessment and Plan (1) Thrombocytopenia Status: Acute Code(s): D69.6 - THROMBOCYTOPENIA, UNSPECIFIED SNOMED Code(s): 352653231 (2) Acute myeloid leukemia Status: Acute Priority: High Code(s): C92.00 - ACUTE MYELOBLASTIC LEUKEMIA, NOT HAVING ACHIEVED REMISSION SNOMED Code(s): 26481464 Plan: unfortunately he had a positive covid test, with respiratory failure requiring life saving measures and now intubated in ICU. Family at bedside discussed overall prognosis with primary team. Family realistic and plan to allow comfort and terminal weaning
--- NOTE | 2021-01-01 14:08 | CDI ---
Documentation Clarification Form Mortality Review Date: 01/01/2021 02:03:43 PM From: Marcie Pretty RN, CCDS Admit Date: 12/22/2020 02:59:00 AM Patient Name: Flex Chand Visit Number: [id number] Discharge Date: 12/28/2020 02:31:00 PM ATTENTION: The Clinical Documentation Specialists (CDI) and [facility] Coding Staff appreciate your assistance in clarifying documentation. Please respond to the clarification below the line at the bottom and electronically sign. The CDI & [facility] Coding staff will review the response and follow-up if needed. Please note: Queries are made part of the Legal Health Record. If you have any questions, please contact the author of this message via ITS. Dr. Lira E Sheet The patient presented with the following clinical indicators. Additional clarification regarding the etiology/cause of the clinical indicators is requested. 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 Sabillon Recent prolonged hospitalization sepsis, declining performance requiring ECF." 12/27 Pulmonary Consult: "acute COVID 19 related pneumonia. This very much likely the patient was infected even at the time of admission with Covid 19. His initial computed tomography scan of the chest showed bilateral ground glass pulmonary infiltrates typical of Covid 19. During the course of his hospitalization, the patient was diagnosed and the patient developed progressive hypoxic respiratory failure and currently is on 50 units of oxygen by nasal cannula. He is quite debilitated. He is immunocompromised." End organ Damage POA: Toxic Metabolic Encephalopathy Treatment: 12/23 ID Consult: "Patient with a history of acute myeloid leukemia in this patient status post chemotherapy and recently has completed a bone marrow transplant at [facility], patient did have a mild elevated white count on admission that has subsequent normalized patient currently do not have any fever and no obvious focus of infection however has been complaining of some cough and sputum production underlying pneumonia needs to be ruled out." 12/24 IV Vanco 1Gm IVPB x 1 12/24-12/27 IV Zosyn 3.375GM IVPB Q 8 HRS 12/28 IV Levophed titrate for B/P 12/27 1L 0.9% NS IVF Bolus 12/28 2L 0.9% NS IVF Bolus Patient was not a candidate for Remdesivir In your professional opinion, please clarify if these findings signify one of the following conditions: [ ] Sepsis POA [ ] Sepsis, Not POA [ ] Severe Sepsis with organ failure POA [ ] Sepsis with Severe Sepsis and Septic Shock POA [ ] Sepsis with Severe Sepsis and Septic Shock Not POA [ ] Other, please specify [ ] Unable to determine SIRS Criteria: 2 or more of the following may indicate SIRS -Temperature < 96.8F (36C) or > 101.0F (38.3C) -Heart Rate > 90 bpm -Respiratory Rate > 20 breaths/min or PaCO2 < 32 mmHg -White Blood Cell Count > 12,000 or < 4,000 cells/mm3 or > 10% bands (Template Last Reviewed: May 2020) Other, please specify: Acute resp failure MTDD
== END 2020-12-28 14:31 | disposition expired | DRG 208 ==
LOC: EC 21:15 → 5NMEDONC 12-22 02:59 → 4SSUR 12-27 00:35 → 2SICU 12-28 07:21
PROVIDERS: ADMIT Hospitalist; ATTEND Hospitalist
DX: U07.1 COVID-19 (principal); J96.01 Acute respiratory failure with hypoxia; G92 Toxic encephalopathy; J12.82 Pneumonia due to coronavirus disease 2019; J69.0 Pneumonitis due to inhalation of food and vomit; C92.00 Acute myeloblastic leukemia, not having achieved remission; Z94.81 Bone marrow transplant status; Z66 Do not resuscitate; Z51.5 Encounter for palliative care; D69.6 Thrombocytopenia, unspecified; I10 Essential (primary) hypertension; E78.5 Hyperlipidemia, unspecified; F32.9 Major depressive disorder, single episode, unspecified; F41.9 Anxiety disorder, unspecified; Z87.891 Personal history of nicotine dependence; I46.9 Cardiac arrest, cause unspecified; Z93.1 Gastrostomy status; H91.90 Unspecified hearing loss, unspecified ear; I95.9 Hypotension, unspecified; R74.01 Elevation of levels of liver transaminase levels; I65.22 Occlusion and stenosis of left carotid artery; R79.82 Elevated C-reactive protein (CRP); E83.111 Hemochromatosis due to repeated red blood cell transfusions; R53.81 Other malaise; K21.9 Gastro-esophageal reflux disease without esophagitis; Z92.21 Personal history of antineoplastic chemotherapy; Z86.73 Personal history of transient ischemic attack (TIA), and cerebral infarction without residual deficits; Z79.899 Other long term (current) drug therapy; Z98.890 Other specified postprocedural states
CPT/HCPCS: 36415; 70450; 70553; 71045; 71046; 71275; 80048; 80053; 80076; 80306; 81001; 82140; 82248; 82607; 82728; 82746; 82805; 83010; 83036; 83540; 83550; 83605; 83615; 83690; 83735; 84100; 84132; 84145; 84443; 84484; 85025; 85045; 85379; 85384; 85610; 85730; 86140; 86663; 86664; 86665; 86769; 86850; 86900; 86901; 87040; 87324; 87497; 87533; 87635; 93005; 94760; 95816; 96360; 96361; 99285